=== PATIENT | male | born 1945 | race Caucasian/White ===

== ENCOUNTER → 2020-05-25 15:07 | Outpatient (BNVA) | payer MEDICARE, SELFPAY | PROVIDERS: PCP Internal Medicine Medical Oncology; Visit Provider Internal Medicine | DX: I82.501 Chronic embolism and thrombosis of unspecified deep veins of right lower extremity (principal); Z51.81 Encounter for therapeutic drug level monitoring; Z79.01 Long term (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 | CPT/HCPCS: 85610; 99211 ==

== ENCOUNTER 2020-06-10 10:12 | Outpatient (REF) | payer MEDICARE, SELFPAY | END 2020-06-10 10:13 | disposition home or self-care (01) | LOC: HO.LAB 10:12 | PROVIDERS: Visit Provider Internal Medicine | DX: Z20.828 Contact with and (suspected) exposure to other viral communicable diseases (principal) | CPT/HCPCS: C9803; U0003 ==

== ENCOUNTER → 2020-06-22 09:58 | Outpatient (BNVA) | payer MEDICARE, SELFPAY | PROVIDERS: PCP Internal Medicine Medical Oncology; Visit Provider Internal Medicine | DX: I82.501 Chronic embolism and thrombosis of unspecified deep veins of right lower extremity (principal); Z51.81 Encounter for therapeutic drug level monitoring; Z79.01 Long term (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 | CPT/HCPCS: 85610; 99211 ==

== ENCOUNTER → 2020-07-27 08:50 | Outpatient (BNVA) | payer MEDICARE, SELFPAY | PROVIDERS: PCP Internal Medicine Medical Oncology; Visit Provider Internal Medicine | DX: I82.501 Chronic embolism and thrombosis of unspecified deep veins of right lower extremity (principal); Z79.01 Long term (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; Z51.81 Encounter for therapeutic drug level monitoring | CPT/HCPCS: 85610; 99211 ==

== ENCOUNTER → 2020-08-24 11:03 | Outpatient (BNVA) | payer MEDICARE, SELFPAY | PROVIDERS: PCP Internal Medicine Medical Oncology; Visit Provider Internal Medicine | DX: I82.501 Chronic embolism and thrombosis of unspecified deep veins of right lower extremity (principal); Z79.01 Long term (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; Z51.81 Encounter for therapeutic drug level monitoring | CPT/HCPCS: 85610; 99211 ==

== ENCOUNTER → 2020-09-21 10:20 | Outpatient (BNVA) | payer MEDICARE, SELFPAY | PROVIDERS: PCP Internal Medicine Medical Oncology; Visit Provider Internal Medicine | DX: I82.501 Chronic embolism and thrombosis of unspecified deep veins of right lower extremity (principal); Z51.81 Encounter for therapeutic drug level monitoring; Z79.01 Long term (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 | CPT/HCPCS: 85610; 99211 ==

== ENCOUNTER → 2020-10-19 10:02 | Outpatient (BNVA) | payer MEDICARE, SELFPAY | PROVIDERS: PCP Internal Medicine Medical Oncology; Visit Provider Internal Medicine | DX: I82.501 Chronic embolism and thrombosis of unspecified deep veins of right lower extremity (principal); Z51.81 Encounter for therapeutic drug level monitoring; Z79.01 Long term (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 | CPT/HCPCS: 85610; 99211 ==

== ENCOUNTER → 2020-11-02 10:27 | Outpatient (BNVA) | payer MEDICARE, SELFPAY | PROVIDERS: PCP Internal Medicine Medical Oncology; Visit Provider Internal Medicine | DX: Z86.718 Personal history of other venous thrombosis and embolism (principal); Z51.81 Encounter for therapeutic drug level monitoring; Z79.01 Long term (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 | CPT/HCPCS: 85610; 99211 ==

== ENCOUNTER → 2020-11-30 10:00 | Outpatient (BNVA) | payer MEDICARE, SELFPAY | PROVIDERS: PCP Internal Medicine Medical Oncology; Visit Provider Internal Medicine | DX: Z86.718 Personal history of other venous thrombosis and embolism (principal); Z51.81 Encounter for therapeutic drug level monitoring; Z79.01 Long term (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 | CPT/HCPCS: 85610; 99211 ==

== ENCOUNTER → 2020-12-28 10:31 | Outpatient (BNVA) | payer MEDICARE, SELFPAY | PROVIDERS: PCP Internal Medicine Medical Oncology; Visit Provider Internal Medicine | DX: Z86.718 Personal history of other venous thrombosis and embolism (principal); Z51.81 Encounter for therapeutic drug level monitoring; Z79.01 Long term (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 | CPT/HCPCS: 85610; 99211 ==

== ENCOUNTER → 2021-01-11 10:18 | Outpatient (BNVA) | payer MEDICARE, SELFPAY | PROVIDERS: PCP Internal Medicine Medical Oncology; Visit Provider Internal Medicine | DX: Z86.718 Personal history of other venous thrombosis and embolism (principal); Z51.81 Encounter for therapeutic drug level monitoring; Z79.01 Long term (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 | CPT/HCPCS: 85610; 99211 ==

== ENCOUNTER → 2021-02-01 10:38 | Outpatient (BNVA) | payer MEDICARE, SELFPAY | PROVIDERS: PCP Internal Medicine Medical Oncology; Visit Provider Internal Medicine | DX: Z86.718 Personal history of other venous thrombosis and embolism (principal); Z51.81 Encounter for therapeutic drug level monitoring; Z79.01 Long term (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 | CPT/HCPCS: 85610; 99211 ==

== ENCOUNTER 2021-02-20 08:33 | Outpatient (REF) | payer MEDICARE, SELFPAY ==
[2021-02-20 09:30] LABS: MANUAL DIFF FLAG NO
[2021-02-20 09:40] LABS: Basophils Absolute Auto 0.1 X10*3/uL (0.0-0.2); Basophils Percent Auto 0.9 % (0-2); Eosinophils Absolute Auto 0.1 X10*3/uL (0.0-0.4); Eosinophils Percent Auto 1.8 % (0-4); Hematocrit 42.3 % (42-52); Hemoglobin 13.8 g/dl (14.0-18.0); Imm Gran Abs Auto 0.03 X10*3/uL (0.00-0.03); Imm Gran Pct Auto 0.4 % (0.0-0.4); Lymphocytes Absolute Auto 2.7 X10*3/uL (1.2-4.9); Lymphocytes Percent Auto 35.2 % (20-40); Mean Corpuscular HGB Conc 32.6 g/dl (31.0-36.0); Mean Corpuscular Hemoglobin 30.2 pg (27.0-33.0); Mean Corpuscular Volume 92.6 fL (80-98); Mean Platelet Volume 9.8 fL (9.4-12.4); Monocytes Absolute Auto 0.8 X10*3/uL (0.1-1.2); Monocytes Percent Auto 9.9 % (2-11); Neutrophils Absolute Auto 3.9 X10*3/uL (2.0-8.3); Neutrophils Percent Auto 51.8 % (45-73); Platelet Count 380 X10*3/uL (160-400); Red Blood Count 4.57 X10*6/uL (4.60-5.80); Red Cell Distribution Width 14.1 % (11.0-16.0); White Blood Count 7.6 X10*3/uL (4.8-10.8)
[2021-02-20 10:14] LABS: Alanine Aminotransferase 19 U/L (0-40); Albumin Level 4.1 g/dL (3.5-5.0); Alkaline Phosphatase 65 U/L (39-117); Anion Gap 10 (12-20); Aspartate Amino Transferase 23 U/L (5-37); Bilirubin Total 0.8 mg/dL (0.0-1.0); Blood Urea Nitrogen 15 mg/dL (9-16); Carbon Dioxide 29 mmol/L (22-29); Chloride 106 mmol/L (96-108); Cholesterol 154 mg/dL; Estimated Glomerular Filt Rate > 60; Glucose Random 100 mg/dL (60-115); HDL Cholesterol 42 mg/dL; LDL Cholesterol Calculated 99 mg/dl; Potassium 5.2 mmol/L (3.3-5.1); Sodium 140 mmol/L (135-145); Total Protein 6.9 g/dL (6.5-8.0); Triglycerides 69 mg/dL
== END 2021-02-20 08:34 | disposition home or self-care (01) ==
LOC: HO.LAB 08:33
PROVIDERS: PCP Internal Medicine Medical Oncology; Visit Provider Internal Medicine Medical Oncology
DX: I10 Essential (primary) hypertension (principal); C91.10 Chronic lymphocytic leukemia of B-cell type not having achieved remission
CPT/HCPCS: 36415; 80053; 80061; 85025

== ENCOUNTER → 2021-04-03 08:55 | Outpatient (BNVA) | payer MEDICARE, SELFPAY | PROVIDERS: PCP Internal Medicine Medical Oncology; Visit Provider Internal Medicine | DX: Z86.718 Personal history of other venous thrombosis and embolism (principal); Z51.81 Encounter for therapeutic drug level monitoring; Z79.01 Long term (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 | CPT/HCPCS: 85610; 99211 ==

== ENCOUNTER → 2021-05-08 08:39 | Outpatient (BNVA) | payer MEDICARE, SELFPAY | PROVIDERS: PCP Internal Medicine Medical Oncology; Visit Provider Internal Medicine | DX: Z86.718 Personal history of other venous thrombosis and embolism (principal); Z51.81 Encounter for therapeutic drug level monitoring; Z79.01 Long term (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 | CPT/HCPCS: 85610; 99211 ==

== ENCOUNTER → 2021-05-29 08:57 | Outpatient (BNVA) | payer MEDICARE, SELFPAY | PROVIDERS: PCP Internal Medicine Medical Oncology; Visit Provider Internal Medicine | DX: Z86.718 Personal history of other venous thrombosis and embolism (principal); Z51.81 Encounter for therapeutic drug level monitoring; Z79.01 Long term (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 | CPT/HCPCS: 85610; 99211 ==

== ENCOUNTER → 2021-06-26 08:59 | Outpatient (BNVA) | payer MEDICARE, SELFPAY | PROVIDERS: PCP Internal Medicine Medical Oncology; Visit Provider Internal Medicine | DX: Z86.718 Personal history of other venous thrombosis and embolism (principal); Z51.81 Encounter for therapeutic drug level monitoring; Z79.01 Long term (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 | CPT/HCPCS: 85610; 99211 ==

== ENCOUNTER 2021-07-06 07:17 | Outpatient (REF) | payer MEDICARE, SELFPAY ==
[2021-07-06 07:26] LABS: MANUAL DIFF FLAG NO
[2021-07-06 07:59] LABS: Basophils Absolute Auto 0.1 X10*3/uL (0.0-0.2); Basophils Percent Auto 0.7 % (0-2); Eosinophils Absolute Auto 0.2 X10*3/uL (0.0-0.4); Eosinophils Percent Auto 2.1 % (0-4); Hematocrit 41.2 % (42.0-52.0); Hemoglobin 13.7 g/dl (14.0-18.0); Imm Gran Abs Auto 0.03 X10*3/uL (0.00-0.03); Imm Gran Pct Auto 0.4 % (0.0-0.4); Lymphocytes Absolute Auto 2.8 X10*3/uL (1.2-4.9); Lymphocytes Percent Auto 33.2 % (20-40); Mean Corpuscular HGB Conc 33.3 g/dl (31.0-36.0); Mean Corpuscular Hemoglobin 30.2 pg (27.0-33.0); Mean Corpuscular Volume 90.9 fL (80.0-98.0); Monocytes Absolute Auto 0.9 X10*3/uL (0.1-1.2); Monocytes Percent Auto 10.4 % (2-11); Neutrophils Absolute Auto 4.6 x10*3/uL (2.0-8.3); Neutrophils Percent Auto 53.2 % (45-73); Platelet Count 361 X10*3/uL (160-400); Red Blood Count 4.53 X10*6/uL (4.60-5.80); Red Cell Distribution Width 14.2 % (11.0-16.0); White Blood Count 8.6 X10*3/uL (4.8-10.8)
[2021-07-06 08:27] LABS: Alanine Aminotransferase 20 U/L (0-40); Alkaline Phosphatase 61 U/L (39-117); Anion Gap 14 (12-20); Aspartate Amino Transferase 22 U/L (5-37); Bilirubin Total 0.9 mg/dL (0.0-1.0); Blood Urea Nitrogen 15 mg/dL (9-16); Calcium 9.1 mg/dL (8.4-10.2); Carbon Dioxide 26 mmol/L (22-29); Chloride 108 mmol/L (96-108); Cholesterol 147 mg/dL; Estimated Glomerular Filt Rate > 60; Glucose Fasting 109 mg/dL (60-99); HDL Cholesterol 41 mg/dL; LDL Cholesterol Calculated 92 mg/dl; Potassium 4.4 mmol/L (3.3-5.1); Sodium 144 mmol/L (135-145); Total Protein 6.7 g/dL (6.5-8.0); Triglycerides 73 mg/dL
[2021-07-06 08:45] LABS: PSA,Total (Free>4and<10) 1.32 ng/mL (0.00-4.00)
== END 2021-07-06 07:18 | disposition home or self-care (01) ==
LOC: HO.LAB 07:17
PROVIDERS: PCP Internal Medicine Medical Oncology; Visit Provider Internal Medicine Medical Oncology
DX: I10 Essential (primary) hypertension (principal); E11.9 Type 2 diabetes mellitus without complications; Z12.5 Encounter for screening for malignant neoplasm of prostate
CPT/HCPCS: 36415; 80053; 80061; 84153; 84154; 85025

== ENCOUNTER → 2021-07-17 09:06 | Outpatient (BNVA) | payer MEDICARE, SELFPAY | PROVIDERS: PCP Internal Medicine Medical Oncology; Visit Provider Internal Medicine | DX: Z86.718 Personal history of other venous thrombosis and embolism (principal); Z51.81 Encounter for therapeutic drug level monitoring; Z79.01 Long term (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 | CPT/HCPCS: 85610; 99211 ==

== ENCOUNTER → 2021-07-31 08:56 | Outpatient (BNVA) | payer MEDICARE, SELFPAY | PROVIDERS: PCP Internal Medicine Medical Oncology; Visit Provider Internal Medicine | DX: Z86.718 Personal history of other venous thrombosis and embolism (principal); Z51.81 Encounter for therapeutic drug level monitoring; Z79.01 Long term (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 | CPT/HCPCS: 85610; 99211 ==

== ENCOUNTER → 2021-08-31 08:42 | Outpatient (BNVA) | payer MEDICARE, SELFPAY | PROVIDERS: PCP Internal Medicine Medical Oncology; Visit Provider Internal Medicine | DX: Z86.718 Personal history of other venous thrombosis and embolism (principal); Z51.81 Encounter for therapeutic drug level monitoring; Z79.01 Long term (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 | CPT/HCPCS: 85610; 99211 ==

== ENCOUNTER → 2021-10-12 08:06 | Outpatient (BNVA) | payer MEDICARE, SELFPAY | PROVIDERS: PCP Internal Medicine Medical Oncology; Visit Provider Internal Medicine | DX: Z86.718 Personal history of other venous thrombosis and embolism (principal); Z51.81 Encounter for therapeutic drug level monitoring; Z79.01 Long term (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 | CPT/HCPCS: 85610; 99211 ==

== ENCOUNTER 2021-11-02 07:20 | Outpatient (REF) | payer MEDICARE, SELFPAY ==
[2021-11-02 07:30] LABS: MANUAL DIFF FLAG NO
[2021-11-02 07:32] LABS: Basophils Absolute Auto 0.1 X10*3/uL (0.0-0.2); Basophils Percent Auto 0.7 % (0-2); Eosinophils Absolute Auto 0.2 X10*3/uL (0.0-0.4); Eosinophils Percent Auto 1.9 % (0-4); Hematocrit 41.4 % (42.0-52.0); Hemoglobin 14.2 g/dl (14.0-18.0); Imm Gran Abs Auto 0.04 X10*3/uL (0.00-0.03); Imm Gran Pct Auto 0.5 % (0.0-0.4); Lymphocytes Absolute Auto 3.2 X10*3/uL (1.2-4.9); Lymphocytes Percent Auto 35.7 % (20-40); Mean Corpuscular HGB Conc 34.3 g/dl (31.0-36.0); Mean Corpuscular Hemoglobin 31.8 pg (27.0-33.0); Mean Corpuscular Volume 92.6 fL (80.0-98.0); Mean Platelet Volume 9.8 fL (9.4-12.4); Monocytes Absolute Auto 0.9 X10*3/uL (0.1-1.2); Neutrophils Absolute Auto 4.5 x10*3/uL (2.0-8.3); Neutrophils Percent Auto 51.2 % (45-73); Platelet Count 292 X10*3/uL (160-400); Red Blood Count 4.47 X10*6/uL (4.60-5.80); Red Cell Distribution Width 15.2 % (11.0-16.0); White Blood Count 8.8 X10*3/uL (4.8-10.8)
[2021-11-02 08:04] LABS: Alanine Aminotransferase 20 U/L (0-40); Albumin Level 4.1 g/dL (3.5-5.0); Alkaline Phosphatase 64 U/L (39-117); Anion Gap 10 (12-20); Aspartate Amino Transferase 20 U/L (5-37); Bilirubin Total 0.5 mg/dL (0.0-1.0); Blood Urea Nitrogen 19 mg/dL (9-16); Calcium 9.2 mg/dL (8.4-10.2); Carbon Dioxide 28 mmol/L (22-29); Chloride 107 mmol/L (96-108); Cholesterol 159 mg/dL; Estimated Glomerular Filt Rate > 60; Glucose Fasting 117 mg/dL (60-99); HDL Cholesterol 42 mg/dL; LDL Cholesterol Calculated 101 mg/dl; Potassium 4.4 mmol/L (3.3-5.1); Sodium 141 mmol/L (135-145); Total Protein 7.1 g/dL (6.5-8.0); Triglycerides 80 mg/dL
[2021-11-02 08:16] LABS: Prostate Specific Antigen 1.07 ng/mL (<0.05-4.0)
== END 2021-11-02 07:21 | disposition home or self-care (01) ==
LOC: HO.LAB 07:20
PROVIDERS: PCP Internal Medicine Medical Oncology; Visit Provider Internal Medicine Medical Oncology
DX: I10 Essential (primary) hypertension (principal); E11.9 Type 2 diabetes mellitus without complications; E66.3 Overweight; Z12.5 Encounter for screening for malignant neoplasm of prostate
CPT/HCPCS: 36415; 80053; 80061; 84153; 85025

== ENCOUNTER → 2021-11-08 08:01 | Outpatient (BNVA) | payer MEDICARE, SELFPAY | PROVIDERS: PCP Internal Medicine Medical Oncology; Visit Provider Internal Medicine | DX: Z86.718 Personal history of other venous thrombosis and embolism (principal); Z51.81 Encounter for therapeutic drug level monitoring; Z79.01 Long term (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 | CPT/HCPCS: 85610; 99211 ==

== ENCOUNTER → 2021-12-18 13:56 | Outpatient (BNVA) | payer MEDICARE, SELFPAY | PROVIDERS: PCP Internal Medicine Medical Oncology; Visit Provider Internal Medicine | DX: Z86.718 Personal history of other venous thrombosis and embolism (principal); Z79.01 Long term (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; Z51.81 Encounter for therapeutic drug level monitoring | CPT/HCPCS: 85610; 99211 ==

== ENCOUNTER → 2022-01-29 08:44 | Outpatient (BNVA) | payer MEDICARE, SELFPAY | PROVIDERS: PCP Internal Medicine Medical Oncology; Visit Provider Internal Medicine | DX: Z86.718 Personal history of other venous thrombosis and embolism (principal); Z79.01 Long term (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; Z51.81 Encounter for therapeutic drug level monitoring | CPT/HCPCS: 85610; 99211 ==

== ENCOUNTER → 2022-02-26 08:36 | Outpatient (BNVA) | payer MEDICARE, SELFPAY | PROVIDERS: PCP Internal Medicine Medical Oncology; Visit Provider Internal Medicine | DX: Z86.718 Personal history of other venous thrombosis and embolism (principal); Z51.81 Encounter for therapeutic drug level monitoring; Z79.01 Long term (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 | CPT/HCPCS: 85610; 99211 ==

== ENCOUNTER 2022-03-26 06:41 | Outpatient (REF) | payer MEDICARE, SELFPAY ==
[2022-03-26 06:55] LABS: MANUAL DIFF FLAG NO
[2022-03-26 07:27] LABS: Basophils Absolute Auto 0.1 X10*3/uL (0.0-0.2); Basophils Percent Auto 0.9 % (0-2); Eosinophils Absolute Auto 0.2 X10*3/uL (0.0-0.4); Hematocrit 40.8 % (42.0-52.0); Hemoglobin 13.8 g/dl (14.0-18.0); Imm Gran Abs Auto 0.03 X10*3/uL (0.00-0.03); Imm Gran Pct Auto 0.3 % (0.0-0.4); Lymphocytes Absolute Auto 3.4 X10*3/uL (1.2-4.9); Lymphocytes Percent Auto 37.5 % (20-40); Mean Corpuscular HGB Conc 33.8 g/dl (31.0-36.0); Mean Corpuscular Hemoglobin 31.1 pg (27.0-33.0); Mean Corpuscular Volume 91.9 fL (80.0-98.0); Mean Platelet Volume 9.7 fL (9.4-12.4); Monocytes Absolute Auto 0.8 X10*3/uL (0.1-1.2); Monocytes Percent Auto 9.4 % (2-11); Neutrophils Absolute Auto 4.5 x10*3/uL (2.0-8.3); Neutrophils Percent Auto 49.9 % (45-73); Platelet Count 369 X10*3/uL (160-400); Red Blood Count 4.44 X10*6/uL (4.60-5.80); Red Cell Distribution Width 13.8 % (11.0-16.0); White Blood Count 8.9 X10*3/uL (4.8-10.8)
[2022-03-26 08:11] LABS: Alanine Aminotransferase 17 U/L (0-40); Alkaline Phosphatase 70 U/L (39-117); Anion Gap 14 (12-20); Aspartate Amino Transferase 19 U/L (5-37); Bilirubin Total 0.7 mg/dL (0.0-1.0); Blood Urea Nitrogen 24 mg/dL (9-16); Carbon Dioxide 26 mmol/L (22-29); Chloride 105 mmol/L (96-108); Cholesterol 184 mg/dL; Estimated Glomerular Filt Rate > 60; Glucose Fasting 106 mg/dL (60-99); HDL Cholesterol 50 mg/dL; LDL Cholesterol Calculated 122 mg/dl; Potassium 4.6 mmol/L (3.3-5.1); Sodium 140 mmol/L (135-145); Total Protein 6.8 g/dL (6.5-8.0); Triglycerides 63 mg/dL
== END 2022-03-26 06:42 | disposition home or self-care (01) ==
LOC: HO.LAB 06:41
PROVIDERS: PCP Internal Medicine Medical Oncology; Visit Provider Internal Medicine Medical Oncology
DX: Z86.718 Personal history of other venous thrombosis and embolism (principal); I10 Essential (primary) hypertension; C91.10 Chronic lymphocytic leukemia of B-cell type not having achieved remission; Z51.81 Encounter for therapeutic drug level monitoring; Z79.01 Long term (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
CPT/HCPCS: 36415; 80053; 80061; 85025; 85610; 99211

== ENCOUNTER 2022-03-27 11:56 | Outpatient (REF) | payer MEDICARE, SELFPAY ==
--- NOTE | ~2022-03-27 | XR_ITS ---
EXAMINATION: XR THORACIC SPINE CLINICAL INFORMATION: Pain COMPARISON: Previous chest x-ray most recent February [address] from 2013 TECHNIQUE: 3 views of the thoracic spine were obtained. FINDINGS: There is 3 mm anterior subluxation of C7 with respect to T1 and T2 with respect to T3 appreciated on the swimmer's view. Bone alignment is otherwise normal. No fracture or dislocation is seen. There is multilevel degenerative spondylosis. There are postsurgical changes with surgical clips in the right paratracheal region. There is fullness of the soft tissues seen in this region that is unchanged from old exams. There is tortuosity of the descending thoracic aorta that is similar to previous exams. There are postsurgical changes to the lower cervical spine. XR/XR thoracic spine 3V IMPRESSION: Mild 3 mm anterior subluxation of the C7 with respect to T1 and T2 with respect to T3 seen on swimmer's view. Degenerative changes.
== END 2022-03-27 11:57 | disposition home or self-care (01) ==
LOC: HO.XRAY 11:56
PROVIDERS: PCP Internal Medicine Medical Oncology; Visit Provider Internal Medicine Medical Oncology
DX: M54.6 Pain in thoracic spine (principal)
CPT/HCPCS: 72072

== ENCOUNTER → 2022-04-02 08:02 | Outpatient (BNVA) | payer MEDICARE, SELFPAY | PROVIDERS: PCP Internal Medicine Medical Oncology; Visit Provider Internal Medicine | DX: Z86.718 Personal history of other venous thrombosis and embolism (principal); Z79.01 Long term (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; Z51.81 Encounter for therapeutic drug level monitoring | CPT/HCPCS: 85610; 99211 ==

== ENCOUNTER → 2022-04-30 08:10 | Outpatient (BNVA) | payer MEDICARE, SELFPAY | PROVIDERS: PCP Internal Medicine Medical Oncology; Visit Provider Internal Medicine | DX: Z86.718 Personal history of other venous thrombosis and embolism (principal); Z79.01 Long term (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; Z51.81 Encounter for therapeutic drug level monitoring | CPT/HCPCS: 85610; 99211 ==

== ENCOUNTER 2022-05-21 10:39 | Outpatient (REF) | payer MEDICARE, SELFPAY ==
--- NOTE | ~2022-05-21 | XR_ITS ---
EXAMINATION: XR CHEST CLINICAL INFORMATION: Cough COMPARISON: Previous chest x-rays most recent February 2019 TECHNIQUE: 2 views of the chest FINDINGS: The cardiac and mediastinal contours are stable. The descending thoracic aorta is tortuous. There are surgical clips in the right superior mediastinal region. The lungs are clear. There is no pleural effusion or pneumothorax. There are postsurgical changes to the lower cervical spine. XR/XR chest 2V IMPRESSION: No evidence for acute disease in the chest.
== END 2022-05-21 10:40 | disposition home or self-care (01) ==
LOC: HO.XRAY 10:39
PROVIDERS: PCP Internal Medicine Medical Oncology; Visit Provider Internal Medicine Medical Oncology
DX: R05.3 Chronic cough (principal)
CPT/HCPCS: 71046

== ENCOUNTER → 2022-05-28 07:59 | Outpatient (BNVA) | payer MEDICARE, SELFPAY | PROVIDERS: PCP Internal Medicine Medical Oncology; Visit Provider Internal Medicine | DX: Z86.718 Personal history of other venous thrombosis and embolism (principal); Z79.01 Long term (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; Z51.81 Encounter for therapeutic drug level monitoring | CPT/HCPCS: 85610; 99211 ==

== ENCOUNTER → 2022-06-24 07:59 | Outpatient (BNVA) | payer MEDICARE, SELFPAY | PROVIDERS: PCP Internal Medicine Medical Oncology; Visit Provider Internal Medicine | DX: Z86.718 Personal history of other venous thrombosis and embolism (principal); Z79.01 Long term (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; Z51.81 Encounter for therapeutic drug level monitoring | CPT/HCPCS: 85610; 99211 ==

== ENCOUNTER → 2022-07-08 08:04 | Outpatient (BNVA) | payer MEDICARE, SELFPAY | PROVIDERS: PCP Internal Medicine Medical Oncology; Visit Provider Internal Medicine | DX: Z86.718 Personal history of other venous thrombosis and embolism (principal); Z79.01 Long term (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; Z51.81 Encounter for therapeutic drug level monitoring | CPT/HCPCS: 85610; 99211 ==

== ENCOUNTER → 2022-08-06 08:04 | Outpatient (BNVA) | payer MEDICARE, SELFPAY | PROVIDERS: PCP Internal Medicine Medical Oncology; Visit Provider Internal Medicine | DX: Z86.718 Personal history of other venous thrombosis and embolism (principal); Z79.01 Long term (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; Z51.81 Encounter for therapeutic drug level monitoring | CPT/HCPCS: 85610; 99211 ==

== ENCOUNTER 2022-08-09 06:09 | Outpatient (REF) | payer MEDICARE, SELFPAY ==
[2022-08-09 06:19] LABS: MANUAL DIFF FLAG NO
[2022-08-09 07:26] LABS: Basophils Absolute Auto 0.1 X10*3/uL (0.0-0.2); Basophils Percent Auto 0.9 % (0-2); Eosinophils Absolute Auto 0.2 X10*3/uL (0.0-0.4); Eosinophils Percent Auto 2.6 % (0-4); Hematocrit 40.5 % (42.0-52.0); Hemoglobin 13.4 g/dl (14.0-18.0); Imm Gran Abs Auto 0.02 X10*3/uL (0.00-0.03); Imm Gran Pct Auto 0.3 % (0.0-0.4); Lymphocytes Percent Auto 38.8 % (20-40); Mean Corpuscular HGB Conc 33.1 g/dl (31.0-36.0); Mean Corpuscular Hemoglobin 30.2 pg (27.0-33.0); Mean Corpuscular Volume 91.2 fL (80.0-98.0); Mean Platelet Volume 10.1 fL (9.4-12.4); Monocytes Absolute Auto 0.9 X10*3/uL (0.1-1.2); Neutrophils Absolute Auto 3.7 x10*3/uL (2.0-8.3); Neutrophils Percent Auto 46.4 % (45-73); Platelet Count 365 X10*3/uL (160-400); Red Blood Count 4.44 X10*6/uL (4.60-5.80); White Blood Count 7.8 X10*3/uL (4.8-10.8)
[2022-08-09 08:05] LABS: Alanine Aminotransferase 14 U/L (0-40); Albumin Level 3.8 g/dL (3.5-5.0); Alkaline Phosphatase 71 U/L (39-117); Anion Gap 13 (12-20); Aspartate Amino Transferase 17 U/L (5-37); Bilirubin Total 0.6 mg/dL (0.0-1.0); Blood Urea Nitrogen 17 mg/dL (9-16); Calcium 8.9 mg/dL (8.4-10.2); Carbon Dioxide 28 mmol/L (22-29); Chloride 108 mmol/L (96-108); Cholesterol 152 mg/dL; Estimated Glomerular Filt Rate > 60; Glucose Fasting 98 mg/dL (60-99); HDL Cholesterol 39 mg/dL; LDL Cholesterol Calculated 97 mg/dl; Potassium 4.5 mmol/L (3.3-5.1); Sodium 144 mmol/L (135-145); Total Protein 6.4 g/dL (6.5-8.0); Triglycerides 81 mg/dL
[2022-08-09 08:23] LABS: Prostate Specific Antigen 1.13 ng/mL (<0.05-4.0)
== END 2022-08-09 06:10 | disposition home or self-care (01) ==
LOC: HO.LAB 06:09
PROVIDERS: PCP Internal Medicine Medical Oncology; Visit Provider Internal Medicine Medical Oncology
DX: C91.10 Chronic lymphocytic leukemia of B-cell type not having achieved remission (principal); C34.90 Malignant neoplasm of unspecified part of unspecified bronchus or lung; I10 Essential (primary) hypertension; E11.9 Type 2 diabetes mellitus without complications; Z12.5 Encounter for screening for malignant neoplasm of prostate
CPT/HCPCS: 36415; 80053; 80061; 84153; 85025

== ENCOUNTER → 2022-09-10 08:02 | Outpatient (BNVA) | payer MEDICARE, SELFPAY | PROVIDERS: PCP Internal Medicine Medical Oncology; Visit Provider Internal Medicine | DX: Z86.718 Personal history of other venous thrombosis and embolism (principal); Z79.01 Long term (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; Z51.81 Encounter for therapeutic drug level monitoring | CPT/HCPCS: 85610; 99211 ==

== ENCOUNTER → 2022-09-16 08:40 | Outpatient (BNVA) | payer MEDICARE, SELFPAY | PROVIDERS: PCP Internal Medicine Medical Oncology; Referring Provider Internal Medicine Medical Oncology; Visit Provider Surgery | DX: L72.3 Sebaceous cyst (principal); C91.11 Chronic lymphocytic leukemia of B-cell type in remission; C34.90 Malignant neoplasm of unspecified part of unspecified bronchus or lung; I10 Essential (primary) hypertension; I80.291 Phlebitis and thrombophlebitis of other deep vessels of right lower extremity; D68.59 Other primary thrombophilia; Z79.01 Long term (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 | CPT/HCPCS: 99202 ==

== ENCOUNTER → 2022-10-08 08:01 | Outpatient (BNVA) | payer MEDICARE, SELFPAY | PROVIDERS: PCP Internal Medicine Medical Oncology; Visit Provider Internal Medicine | DX: Z86.718 Personal history of other venous thrombosis and embolism (principal); Z79.01 Long term (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; Z51.81 Encounter for therapeutic drug level monitoring | CPT/HCPCS: 85610; 99211 ==

== ENCOUNTER 2022-10-18 10:33 | Outpatient (REF) | payer MEDICARE, SELFPAY ==
[2022-10-18 10:40] VITALS: BMI 26.3
[2022-10-18 10:42] VITALS: BP 143/76; PULSE 87; RESP 16; TEMP 36.8; O2SAT 100
[2022-10-18 11:25] VITALS: BP 144/93; PULSE 82; RESP 16; O2SAT 97
--- NOTE | 2022-10-18 11:33 | P.OP_ITS ---
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 Options of continued observation versus excision with the inherent risks of bleeding, infection, scar formation, recurrence and wound complications that could require another procedure were discussed and apparently understood. The option of continued observation was discussed but the patient wanted to have it removed. Activity restrictions were reviewed. Given the patient's significant PE, his Coumadin was continued.] Procedure: [The patient was identified in the minor procedure room an interval evaluation confirming no changes performed. The patient was then marked and placed prone on the table. A time-out was performed confirming the operation and quit was available. His skin was prepped with 2 layers of Betadine that was allowed to dry and the knee was draped in the usual manner. Local was i nfiltrated with excellent effect an elliptical incision encompassing the central pore measuring 11 x 33 mm was made sharply. This was carried into the subcutaneous tissues using electrocautery on 25W. After irrigating and inspecting for hemostasis which was noted to be present, the skin was closed with 4 interrupted 3-0 Prolene with good tissue approximation. There was then washed and dried, bacitracin and a bandage applied. Patient tolerated the procedure well. Verbal and written instructions reviewed and his questions answered Follow-up in 7-10 days for sutures, sooner with problems.]
== END 2022-10-18 10:34 | disposition home or self-care (01) ==
LOC: HO.MS 10:33
PROVIDERS: PCP Internal Medicine Medical Oncology; Visit Provider Surgery
PROC: (CPT 11404; principal; 2022-10-18 11:00)
DX: L72.3 Sebaceous cyst (principal); I26.99 Other pulmonary embolism without acute cor pulmonale; Z79.01 Long term (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
CPT/HCPCS: 11404; 88304

== ENCOUNTER → 2022-10-25 08:40 | Outpatient (BNVA) | payer MEDICARE, SELFPAY | PROVIDERS: PCP Internal Medicine Medical Oncology; Visit Provider Surgery | DX: Z48.817 Encounter for surgical aftercare following surgery on the skin and subcutaneous tissue (principal); Z87.2 Personal history of diseases of the skin and subcutaneous tissue | CPT/HCPCS: 99212 ==

== ENCOUNTER → 2022-11-05 08:06 | Outpatient (BNVA) | payer MEDICARE, SELFPAY | PROVIDERS: PCP Internal Medicine Medical Oncology; Visit Provider Internal Medicine | DX: Z86.718 Personal history of other venous thrombosis and embolism (principal); Z79.01 Long term (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; Z51.81 Encounter for therapeutic drug level monitoring | CPT/HCPCS: 85610; 99211 ==

== ENCOUNTER 2022-12-03 07:03 | Outpatient (REF) | payer MEDICARE, SELFPAY ==
[2022-12-03 07:15] LABS: MANUAL DIFF FLAG NO
[2022-12-03 07:34] LABS: Basophils Absolute Auto 0.1 X10*3/uL (0.0-0.2); Basophils Percent Auto 1.1 % (0-2); Eosinophils Absolute Auto 0.2 X10*3/uL (0.0-0.4); Eosinophils Percent Auto 1.6 % (0-4); Hematocrit 43.9 % (42.0-52.0); Hemoglobin 14.4 g/dl (14.0-18.0); Imm Gran Abs Auto 0.03 X10*3/uL (0.00-0.03); Imm Gran Pct Auto 0.3 % (0.0-0.4); Lymphocytes Absolute Auto 3.4 X10*3/uL (1.2-4.9); Lymphocytes Percent Auto 37.1 % (20-40); Mean Corpuscular HGB Conc 32.8 g/dl (31.0-36.0); Mean Corpuscular Hemoglobin 30.4 pg (27.0-33.0); Mean Corpuscular Volume 92.6 fL (80.0-98.0); Mean Platelet Volume 9.7 fL (9.4-12.4); Monocytes Absolute Auto 0.9 X10*3/uL (0.1-1.2); Monocytes Percent Auto 9.8 % (2-11); Neutrophils Absolute Auto 4.6 x10*3/uL (2.0-8.3); Neutrophils Percent Auto 50.1 % (45-73); Platelet Count 382 X10*3/uL (160-400); Red Blood Count 4.74 X10*6/uL (4.60-5.80); Red Cell Distribution Width 14.3 % (11.0-16.0); White Blood Count 9.2 X10*3/uL (4.8-10.8)
[2022-12-03 07:57] LABS: Alanine Aminotransferase 22 U/L (0-40); Albumin Level 4.1 g/dL (3.5-5.0); Alkaline Phosphatase 77 U/L (39-117); Anion Gap 11 (12-20); Aspartate Amino Transferase 20 U/L (5-37); Bilirubin Total 0.6 mg/dL (0.0-1.0); Blood Urea Nitrogen 23 mg/dL (9-16); Calcium 9.2 mg/dL (8.4-10.2); Carbon Dioxide 27 mmol/L (22-29); Chloride 107 mmol/L (96-108); Cholesterol 159 mg/dL; Estimated Glomerular Filt Rate > 60; Glucose Fasting 101 mg/dL (60-99); HDL Cholesterol 41 mg/dL; LDL Cholesterol Calculated 103 mg/dl; Potassium 4.4 mmol/L (3.3-5.1); Sodium 141 mmol/L (135-145); Total Protein 6.8 g/dL (6.5-8.0); Triglycerides 76 mg/dL
== END 2022-12-03 07:04 | disposition home or self-care (01) ==
LOC: HO.LAB 07:03
PROVIDERS: PCP Internal Medicine Medical Oncology; Visit Provider Internal Medicine Medical Oncology
DX: Z86.718 Personal history of other venous thrombosis and embolism (principal); C91.10 Chronic lymphocytic leukemia of B-cell type not having achieved remission; E66.3 Overweight; I10 Essential (primary) hypertension; Z51.81 Encounter for therapeutic drug level monitoring; Z79.01 Long term (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
CPT/HCPCS: 36415; 80053; 80061; 85025; 85610; 99211

== ENCOUNTER → 2022-12-31 07:59 | Outpatient (BNVA) | payer MEDICARE, SELFPAY | PROVIDERS: PCP Internal Medicine Medical Oncology; Visit Provider Internal Medicine | DX: Z86.718 Personal history of other venous thrombosis and embolism (principal); Z79.01 Long term (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; Z51.81 Encounter for therapeutic drug level monitoring | CPT/HCPCS: 85610; 99211 ==

== ENCOUNTER → 2023-01-28 08:02 | Outpatient (BNVA) | payer MEDICARE, SELFPAY | PROVIDERS: PCP Internal Medicine Medical Oncology; Visit Provider Internal Medicine | DX: Z86.718 Personal history of other venous thrombosis and embolism (principal); Z51.81 Encounter for therapeutic drug level monitoring; Z79.01 Long term (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 | CPT/HCPCS: 85610; 99211 ==

== ENCOUNTER 2023-02-25 08:02 | Outpatient (AMB) | payer MEDICARE, SELFPAY ==
--- NOTE | 2023-02-25 08:16 | MHC.OFFVISCO ---
Intake Intake Visit Reasons: Anticoagulation Allergies No Known Allergies Allergy (Mild, Verified 02/25/23 08:10) NOT APPLICABLE Medication List - Last Reconciled 02/25/23 by Magda Matute RN losartan 25 mg PO DAILY prednisone 20 mg PO DAILY simvastatin 40 mg PO DAILY sumatriptan succinate 0 mg PO warfarin 5 mg See Protocol PO DAILY Nursing Note INR: 2.0- in therapeutic range Medications and supplements reviewed- pt states no longer taking prednisone No changes in health, diet, medications, or supplements, Denies any signs and symptoms of bleeding or bruising or clotting. Bleeding, bruising, clotting discussed Nutritional guidance given Dose: 5mg x 6, 7.5mg x 1 F/U INR: pt req 4 weeks Patient verbalizes understanding of instructions given Anti-Coag Initial Assessment Social Hx Patient Tobacco Use Status: Former Tobacco user Tobacco use type: Cigar alcohol intake: never Coding Level of Care Code Est Patient Level 1 Diagnoses Current use of anticoagulant therapy Z79.01 Results AMB INR Fingerstick AMB INR Fingerstick 2.0 Last Edit by Magda Matute RN on 02/25/23 08:17 Assessment & Plan Assessment & Plan (1) Current use of anticoagulant therapy: Code(s): Z79.01 - long-term (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 Category: Medical
[2023-02-25 08:17] LABS: Prothrombin Time Whole Bld POC 23.8 sec (11.1-13.5)
== END 2023-02-25 08:22 | disposition home or self-care (01) ==
LOC: HO.ACS 08:02
PROVIDERS: PCP Internal Medicine Medical Oncology; Visit Provider Internal Medicine
DX: Z79.01 Long term (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 (principal)

== ENCOUNTER → 2023-02-25 08:02 | Outpatient (BNVA) | payer MEDICARE, SELFPAY | PROVIDERS: PCP Internal Medicine Medical Oncology; Visit Provider Internal Medicine | DX: Z86.718 Personal history of other venous thrombosis and embolism (principal); Z51.81 Encounter for therapeutic drug level monitoring; Z79.01 Long term (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 | CPT/HCPCS: 85610; 99211 ==

== ENCOUNTER 2023-03-17 08:25 | Outpatient (REF) | payer MEDICARE, SELFPAY ==
--- NOTE | ~2023-03-17 | XR_ITS ---
EXAMINATION: XR KNEE, RIGHT XR KNEE, LEFT XR KNEE, STANDING BILATERAL CLINICAL INFORMATION: Bilateral knee pain. COMPARISON: None available. TECHNIQUE: AP standing view of bilateral knees. Lateral and sunrise views of bilateral knees. FINDINGS: RIGHT KNEE: Joint effusion. Moderate medial joint space narrowing with tiny marginal osteophytes. LEFT KNEE: Joint effusion. Small quadriceps enthesophyte. Mild medial joint space narrowing with tiny marginal osteophytes. XR/XR knee LT 2V IMPRESSION: Bilateral joint effusions. Moderate right and mild left degenerative changes.
--- NOTE | ~2023-03-17 | XR_ITS ---
EXAMINATION: XR KNEE, RIGHT XR KNEE, LEFT XR KNEE, STANDING BILATERAL CLINICAL INFORMATION: Bilateral knee pain. COMPARISON: None available. TECHNIQUE: AP standing view of bilateral knees. Lateral and sunrise views of bilateral knees. FINDINGS: RIGHT KNEE: Joint effusion. Moderate medial joint space narrowing with tiny marginal osteophytes. LEFT KNEE: Joint effusion. Small quadriceps enthesophyte. Mild medial joint space narrowing with tiny marginal osteophytes. XR/XR knee standing BI IMPRESSION: Bilateral joint effusions. Moderate right and mild left degenerative changes.
--- NOTE | ~2023-03-17 | XR_ITS ---
EXAMINATION: XR KNEE, RIGHT XR KNEE, LEFT XR KNEE, STANDING BILATERAL CLINICAL INFORMATION: Bilateral knee pain. COMPARISON: None available. TECHNIQUE: AP standing view of bilateral knees. Lateral and sunrise views of bilateral knees. FINDINGS: RIGHT KNEE: Joint effusion. Moderate medial joint space narrowing with tiny marginal osteophytes. LEFT KNEE: Joint effusion. Small quadriceps enthesophyte. Mild medial joint space narrowing with tiny marginal osteophytes. XR/XR knee RT 2V IMPRESSION: Bilateral joint effusions. Moderate right and mild left degenerative changes.
== END 2023-03-17 08:26 | disposition home or self-care (01) ==
LOC: HO.HOSX 08:25
PROVIDERS: Visit Provider Physician Assistant
DX: M17.0 Bilateral primary osteoarthritis of knee (principal)
CPT/HCPCS: 20610; 73560; 73565; 99202; J1040

== ENCOUNTER 2023-03-17 09:47 | Outpatient (AMB) | payer MEDICARE, SELFPAY ==
--- NOTE | 2023-03-17 10:05 | MHC.OFFVIS ---
Intake Vital Signs 03/17/23 10:10 Height 6 ft Weight 194 lb BMI 26.3 Intake Visit Reasons: New Pt - B/L Knee pain with Swelling Intake Note: Jem is a 78 year old male who presents today as a new patient for a evaluation for bilateral knee pain. No hx of injury. Hx of injections on the left knee with relief. Patient reports ongoing pain and swelling for 3 months for the left knee and then 2 weeks ago his right knee started to cause him pain. He states his left knee is worse than the right knee. Pain is on the lateral aspect of both knees per patient. Allergies No Known Allergies Allergy (Mild, Verified 03/17/23 10:10) NOT APPLICABLE HPI New Pt - B/L Knee pain with Swelling HPI Details 78-year-old male who presents in the office today, as a new patient, for an evaluation of bilateral knee pain. The patient reports ongoing pain and edema for 3 months for the left knee. He also states his right knee began to hurt about 2 weeks ago. He states his left knee is worse then his right knee. He claims the pain is on the lateral aspect of the bilateral knees. Patient denies any injury to the bilateral knees. Patient has a history of cortisone injections in the left knee, with relief. [facility] Surgical History History of cataract Family History Father Diabetes Hyperlipemia Brother Lung cancer Social History Household Members: Spouse Alcohol intake: never Patient Tobacco Use Status: Former Tobacco user Tobacco use type: Cigar Current occupational status: retired Review of Systems Const All systems reviewed & are unremarkable except as noted in HPI and below Physical Exam Vital Signs: BMI result Body Mass Index 26.3 Const General: cooperative and no acute distress Orientation/consciousness: patient oriented x3 Resp Effort & Inspection: normal respiratory effort and able to speak in complete sentences Cardio Peripheral pulses: Peripheral pulses 2+ throughout Skin General skin exam: no rashes or lesions noted Neuro General: patient oriented x3 Extrem Other: Bilateral knees: Normal to inspection. No ecchymosis, erythema, or joint effusion. No tenderness to palpation to the medial or lateral joint lines. Full knee extension and flexion. Minimal crepitus felt with ROM. NVI. Office Procedures Joint Injection/Drain Joint Injection/Drain Primary Site: right knee Secondary Site: left knee Prep: site was prepped using aseptic technique, ethochloride spray was applied and injection warnings given Injected: 80 mg of, DepoMedrol, with 8 mL of (2% plain lido ) and in the joint Approach Used: anterolateral Procedure: The patient tolerated the procedure well, but had some pain with the injection and there was some relief with the local anesthesia Coding 51725 - Large joint Procedure code (CPT) selection complete Results Reviewed Results Reviewed: 03/17/23 10:20 Lidocaine HCl 2 % MPF [Xylocaine 2 % MPF] 5 ml .ROUTE .STK-MED ONE methylPREDNISolone acetate [DEPO-MedroL] 80 mg .ROUTE .STK-MED ONE Assessment & Plan Assessment & Plan (1) Osteoarthritis of right knee: Code(s): M17.11 - Unilateral primary osteoarthritis, right knee (2) Osteoarthritis of left knee: Code(s): M17.12 - Unilateral primary osteoarthritis, left knee Plan Mr. Gallardo is a 78-year-old male who presents in the office today, as a new patient, for an evaluation of bilateral knee pain. The patient reports ongoing pain and edema for 3 months for the left knee. He also states his right knee began to hurt about 2 weeks ago. He states his left knee is worse then his right knee. He claims the pain is on the lateral aspect of the bilateral knees. Patient denies any injury to the bilateral knees. Patient has a history of cortisone injections in the left knee, with relief. The patient was offered a cortisone injection in the bilateral knees with 80 mg of DepoMedrol. The patient was explained the risk, benefits, and alternatives to receiving this injection. After receiving consent for the injection, the patient had the procedure done while in office today. The patient tolerated the procedure well with no complications. Follow up will be PRN, or sooner if needed. X-rays of the bilateral knees which were obtained while in the office today and were reviewed by me, Meg Blanco PA-C, revealed bilateral osteoarthritis. Orders: Orders XR knee LT 2V Today M25.569 - Pain in unspecified knee XR knee RT 2V Today M25.569 - Pain in unspecified knee XR knee standing BI Today M25.569 - Pain in unspecified knee Patient Instructions: Scribed for Meg Blanco PA-C by Cathy Dean medical officer, on 03/17/2023 at 9:50 am, EST. Coding Level of Care Code New Pt Level 3 (21333) Diagnoses Osteoarthritis of right knee M17.11 Osteoarthritis of left knee M17.12 CPT Codes Coding - 23588 Large joint: 27242 - Large joint ([id number])
[2023-03-17 10:10] VITALS: BMI 26.3
== END 2023-03-17 10:46 | disposition home or self-care (01) ==
PROVIDERS: PCP Internal Medicine Medical Oncology; Visit Provider Physician Assistant
DX: M17.0 Bilateral primary osteoarthritis of knee (principal)
CPT/HCPCS: 20610; 99203

== ENCOUNTER 2023-03-25 07:57 | Outpatient (AMB) | payer MEDICARE, SELFPAY ==
[2023-03-25 08:06] LABS: Prothrombin Time Whole Bld POC 29.6 sec (11.1-13.5); ~PT, ~INR - Anti Coag Clinic 2.5 (0.9-1.1)
--- NOTE | 2023-03-25 08:11 | MHC.OFFVISCO ---
Intake Intake Visit Reasons: Anticoagulation Allergies No Known Allergies Allergy (Mild, Verified 03/25/23 08:00) NOT APPLICABLE Medication List - Last Reconciled 03/25/23 by Brenda Trimble RN losartan 25 mg PO DAILY simvastatin 40 mg PO DAILY sumatriptan succinate 0 mg PO warfarin 5 mg See Protocol PO DAILY Nursing Note INR: 2.5 in therapeutic range Medications and supplements reviewed recently had cortione injection No changes in health, diet, medications, or supplements, Denies any signs and symptoms of bleeding or bruising or clotting. Bleeding, bruising, clotting discussed Nutritional guidance given Dose: 7.5mg wed/ 5mg x 6 days F/U INR: 1 month Patient verbalizes understanding of instructions given Anti-Coag Initial Assessment Social Hx Patient Tobacco Use Status: Former Tobacco user Tobacco use type: Cigar alcohol intake: never Coding Level of Care Code Est Patient Level 1 Diagnoses Current use of anticoagulant therapy Z79.01 Assessment & Plan Assessment & Plan (1) Current use of anticoagulant therapy: Code(s): Z79.01 - residential (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 Category: Medical
== END 2023-03-25 08:13 | disposition home or self-care (01) ==
LOC: HO.ACS 07:57
PROVIDERS: PCP Internal Medicine Medical Oncology; Visit Provider Internal Medicine
DX: Z79.01 Long term (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 (principal)

== ENCOUNTER → 2023-03-25 07:57 | Outpatient (BNVA) | payer MEDICARE, SELFPAY | PROVIDERS: PCP Internal Medicine Medical Oncology; Visit Provider Internal Medicine | DX: Z86.718 Personal history of other venous thrombosis and embolism (principal); Z79.01 Long term (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; Z51.81 Encounter for therapeutic drug level monitoring | CPT/HCPCS: 85610; 99211 ==

== ENCOUNTER 2023-04-15 06:16 | Outpatient (REF) | payer MEDICARE, SELFPAY ==
[2023-04-15 06:29] LABS: MANUAL DIFF FLAG NO
[2023-04-15 06:59] LABS: Basophils Absolute Auto 0.1 X10*3/uL (0.0-0.2); Basophils Percent Auto 0.7 % (0-2); Eosinophils Absolute Auto 0.2 X10*3/uL (0.0-0.4); Eosinophils Percent Auto 1.8 % (0-4); Hematocrit 41.2 % (42.0-52.0); Hemoglobin 13.5 g/dl (14.0-18.0); Imm Gran Abs Auto 0.03 X10*3/uL (0.00-0.03); Imm Gran Pct Auto 0.3 % (0.0-0.4); Lymphocytes Percent Auto 33.9 % (20-40); Mean Corpuscular HGB Conc 32.8 g/dl (31.0-36.0); Mean Corpuscular Hemoglobin 30.4 pg (27.0-33.0); Mean Corpuscular Volume 92.8 fL (80.0-98.0); Mean Platelet Volume 9.5 fL (9.4-12.4); Monocytes Absolute Auto 0.9 X10*3/uL (0.1-1.2); Monocytes Percent Auto 10.6 % (2-11); Neutrophils Absolute Auto 4.7 x10*3/uL (2.0-8.3); Neutrophils Percent Auto 52.7 % (45-73); Platelet Count 334 X10*3/uL (160-400); Red Blood Count 4.44 X10*6/uL (4.60-5.80); Red Cell Distribution Width 14.2 % (11.0-16.0); White Blood Count 8.9 X10*3/uL (4.8-10.8)
[2023-04-15 07:22] LABS: Alanine Aminotransferase 17 U/L (0-40); Alkaline Phosphatase 66 U/L (39-117); Anion Gap 11 (12-20); Aspartate Amino Transferase 16 U/L (5-37); Bilirubin Total 0.7 mg/dL (0.0-1.0); Blood Urea Nitrogen 25 mg/dL (9-16); Calcium 8.7 mg/dL (8.4-10.2); Carbon Dioxide 27 mmol/L (22-29); Chloride 108 mmol/L (96-108); Cholesterol 147 mg/dL (<200); Estimated Glomerular Filt Rate > 60; Glucose Fasting 99 mg/dL (60-99); HDL Cholesterol 46 mg/dL (>40); LDL Cholesterol Calculated 90 mg/dL (<100); Sodium 142 mmol/L (135-145); Triglycerides 58 mg/dL (<150)
[2023-04-15 07:39] LABS: Prostate Specific Antigen 1.23 ng/mL (<0.05-4.0)
== END 2023-04-15 06:17 | disposition home or self-care (01) ==
LOC: HO.LAB 06:16
PROVIDERS: PCP Internal Medicine Medical Oncology; Visit Provider Internal Medicine Medical Oncology
DX: C91.10 Chronic lymphocytic leukemia of B-cell type not having achieved remission (principal); I10 Essential (primary) hypertension; E11.9 Type 2 diabetes mellitus without complications; E66.3 Overweight; R35.1 Nocturia; Z12.5 Encounter for screening for malignant neoplasm of prostate
CPT/HCPCS: 36415; 80053; 80061; 84153; 85025

== ENCOUNTER 2023-05-06 08:20 | Outpatient (AMB) | payer MEDICARE, SELFPAY ==
--- NOTE | 2023-05-06 08:23 | MHC.OFFVISCO ---
Intake Intake Visit Reasons: Anticoagulation Allergies No Known Allergies Allergy (Mild, Verified 05/06/23 08:20) NOT APPLICABLE Medication List - Last Reconciled 05/06/23 by Magda Matute RN losartan 25 mg PO DAILY simvastatin 40 mg PO DAILY sumatriptan succinate 0 mg PO warfarin 5 mg See Protocol PO DAILY Nursing Note INR: 2.3- in therapeutic range Medications and supplements reviewed- no changes No changes in health, diet, medications, or supplements, Denies any signs and symptoms of bleeding or bruising or clotting. Bleeding, bruising, clotting discussed Nutritional guidance given Dose: 5mg x 6, 7.5mg x 1 F/U INR: 4 weeks Patient verbalizes understanding of instructions given Anti-Coag Initial Assessment Social Hx Patient Tobacco Use Status: Former Tobacco user Tobacco use type: Cigar alcohol intake: never Coding Level of Care Code Est Patient Level 1 Diagnoses Current use of anticoagulant therapy Z79.01 Results AMB INR Fingerstick AMB INR Fingerstick 2.3 Last Edit by Magda Matute RN on 05/06/23 08:24 Assessment & Plan Assessment & Plan (1) Current use of anticoagulant therapy: Code(s): Z79.01 - director 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
[2023-05-06 08:25] LABS: Prothrombin Time Whole Bld POC 27.9 sec (11.1-13.5); ~PT, ~INR - Anti Coag Clinic 2.3 (0.9-1.1)
== END 2023-05-06 09:47 | disposition home or self-care (01) ==
LOC: HO.ACS 08:20
PROVIDERS: PCP Internal Medicine Medical Oncology; Visit Provider Internal Medicine
DX: Z79.01 Long term (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 (principal)

== ENCOUNTER → 2023-05-06 08:20 | Outpatient (BNVA) | payer MEDICARE, SELFPAY | PROVIDERS: PCP Internal Medicine Medical Oncology; Visit Provider Internal Medicine | DX: Z86.718 Personal history of other venous thrombosis and embolism (principal); Z51.81 Encounter for therapeutic drug level monitoring; Z79.01 Long term (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 | CPT/HCPCS: 85610; 99211 ==

== ENCOUNTER 2023-06-03 08:21 | Outpatient (AMB) | payer MEDICARE, SELFPAY ==
--- NOTE | 2023-06-03 08:25 | MHC.OFFVISCO ---
Intake Intake Visit Reasons: Anticoagulation Allergies No Known Allergies Allergy (Mild, Verified 06/03/23 08:21) NOT APPLICABLE Medication List - Last Reconciled 06/03/23 by Magda Matute RN losartan 25 mg PO DAILY simvastatin 40 mg PO DAILY sumatriptan succinate 0 mg PO warfarin 5 mg See Protocol PO DAILY Nursing Note INR: 2.3- in therapeutic range of 2-3 Medications and supplements reviewed- no changes No changes in health, diet, medications, or supplements, Denies any signs and symptoms of bleeding or bruising or clotting. 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
[2023-06-03 08:26] LABS: Prothrombin Time Whole Bld POC 27.7 sec (11.1-13.5); ~PT, ~INR - Anti Coag Clinic 2.3 (0.9-1.1)
== END 2023-06-03 08:29 | disposition home or self-care (01) ==
LOC: HO.ACS 08:21
PROVIDERS: PCP Internal Medicine Medical Oncology; Visit Provider Internal Medicine
DX: Z79.01 Long term (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 (principal)

== ENCOUNTER → 2023-06-03 08:21 | Outpatient (BNVA) | payer MEDICARE, SELFPAY | PROVIDERS: PCP Internal Medicine Medical Oncology; Visit Provider Internal Medicine | DX: Z86.718 Personal history of other venous thrombosis and embolism (principal); Z79.01 Long term (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; Z51.81 Encounter for therapeutic drug level monitoring | CPT/HCPCS: 85610; 99211 ==

== ENCOUNTER 2023-07-01 08:07 | Outpatient (AMB) | payer MEDICARE, SELFPAY ==
--- NOTE | 2023-07-01 08:11 | MHC.OFFVISCO ---
Intake Intake Visit Reasons: Anticoagulation Allergies No Known Allergies Allergy (Mild, Verified 07/01/23 08:07) NOT APPLICABLE Medication List - Last Reconciled 07/01/23 by Magda Matute RN losartan 25 mg PO DAILY simvastatin 40 mg PO DAILY sumatriptan succinate 0 mg PO warfarin 5 mg See Protocol PO DAILY Nursing Note INR: 2.2- in therapeutic range of 2-3 Medications and supplements reviewed- no changes pt states will be getting covid vaccine today No changes in health, diet, medications, or supplements pt with c.o head 'stuffiness'- states seasonal Denies any signs and symptoms of bleeding or bruising or clotting. Bleeding, bruising, clotting discussed Nutritional guidance given Dose: 5mg x 6, 7.5 x 1 F/U INR: pt req 4 week f/u Patient verbalizes understanding of instructions given Anti-Coag Initial Assessment Social Hx Patient Tobacco Use Status: Former Tobacco user Tobacco use type: Cigar alcohol intake: never Coding Level of Care Code Est Patient Level 1 Results AMB INR Fingerstick AMB INR Fingerstick 2.2 Last Edit by Magda Matute RN on 07/01/23 08:12
[2023-07-01 08:12] LABS: Prothrombin Time Whole Bld POC 25.8 sec (11.1-13.5); ~PT, ~INR - Anti Coag Clinic 2.2 (0.9-1.1)
== END 2023-07-01 08:17 | disposition home or self-care (01) ==
LOC: HO.ACS 08:07
PROVIDERS: PCP Internal Medicine Medical Oncology; Visit Provider Internal Medicine
DX: Z79.01 Long term (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 (principal)

== ENCOUNTER → 2023-07-01 08:07 | Outpatient (BNVA) | payer MEDICARE, SELFPAY | PROVIDERS: PCP Internal Medicine Medical Oncology; Visit Provider Internal Medicine | DX: Z86.718 Personal history of other venous thrombosis and embolism (principal); Z79.01 Long term (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; Z51.81 Encounter for therapeutic drug level monitoring | CPT/HCPCS: 85610; 99211 ==

== ENCOUNTER → 2023-07-29 08:03 | Outpatient (BNVA) | payer MEDICARE, SELFPAY | PROVIDERS: PCP Internal Medicine Medical Oncology; Visit Provider Internal Medicine | DX: Z86.718 Personal history of other venous thrombosis and embolism (principal); Z51.81 Encounter for therapeutic drug level monitoring; Z79.01 Long term (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 | CPT/HCPCS: 85610; 99211 ==

== ENCOUNTER 2023-08-26 08:05 | Outpatient (AMB) | payer MEDICARE, SELFPAY ==
--- NOTE | 2023-08-26 08:09 | MHC.OFFVISCO ---
Intake Intake Visit Reasons: Anticoagulation Allergies No Known Allergies Allergy (Mild, Verified 08/26/23 08:06) NOT APPLICABLE Medication List - Last Reconciled 08/26/23 by Magda Matute RN losartan 25 mg PO DAILY simvastatin 40 mg PO DAILY sumatriptan succinate 0 mg PO warfarin 5 mg See Protocol PO DAILY Nursing Note INR: 2.2- in therapeutic range of 2-3 Medications and supplements reviewed- no changes No changes in health, diet, medications, or supplements, Denies any signs and symptoms of bleeding or bruising or clotting. Bleeding, bruising, clotting discussed Nutritional guidance given Dose: 5mg x 6, 7.5mg x 1 F/U INR: 4 weeks Patient verbalizes understanding of instructions given Anti-Coag Initial Assessment Social Hx Patient Tobacco Use Status: Former Tobacco user Tobacco use type: Cigar alcohol intake: never Coding Level of Care Code Est Patient Level 1 Diagnoses Current use of anticoagulant therapy Z79.01 Results AMB INR Fingerstick AMB INR Fingerstick 2.2 Last Edit by Magda Matute RN on 08/26/23 08:10 Assessment & Plan Assessment & Plan (1) Current use of anticoagulant therapy: Code(s): Z79.01 - manager terminal (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 Category: Medical
[2023-08-26 08:10] LABS: Prothrombin Time Whole Bld POC 26.4 sec (11.1-13.5); ~PT, ~INR - Anti Coag Clinic 2.2 (0.9-1.1)
== END 2023-08-26 08:31 | disposition home or self-care (01) ==
LOC: HO.ACS 08:05
PROVIDERS: PCP Internal Medicine Medical Oncology; Visit Provider Internal Medicine
DX: Z79.01 Long term (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 (principal)

== ENCOUNTER → 2023-08-26 08:05 | Outpatient (BNVA) | payer MEDICARE, SELFPAY | PROVIDERS: PCP Internal Medicine Medical Oncology; Visit Provider Internal Medicine | DX: Z86.718 Personal history of other venous thrombosis and embolism (principal); Z79.01 Long term (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; Z51.81 Encounter for therapeutic drug level monitoring | CPT/HCPCS: 85610; 99211 ==

== ENCOUNTER 2023-09-23 09:06 | Outpatient (AMB) | payer MEDICARE, SELFPAY ==
[2023-09-23 09:13] LABS: Prothrombin Time Whole Bld POC 27.1 sec (11.1-13.5); ~PT, ~INR - Anti Coag Clinic 2.3 (0.9-1.1)
--- NOTE | 2023-09-23 09:14 | MHC.OFFVISCO ---
Intake Intake Visit Reasons: Anticoagulation Allergies No Known Allergies Allergy (Mild, Verified 09/23/23 09:06) NOT APPLICABLE Medication List - Last Reconciled 09/23/23 by Brenda Trimble RN losartan 25 mg PO DAILY simvastatin 40 mg PO DAILY sumatriptan succinate 0 mg PO venlafaxine 100 mg PO DAILY warfarin 5 mg See Protocol PO DAILY Nursing Note INR: 2.3 in therapeutic range Medications and supplements reviewed No changes in health, diet, medications, or supplements, Denies any signs and symptoms of bleeding or bruising or clotting. Bleeding, bruising, clotting discussed Nutritional guidance given Dose: KEEP SAME 7.5MG X 1 DAY/ 5MG X 6 DAYS F/U INR: 1 MONTH Patient verbalizes understanding of instructions given Anti-Coag Initial Assessment Social Hx Patient Tobacco Use Status: Former Tobacco user Tobacco use type: Cigar alcohol intake: never Questionnaires HAS-BLED Does the patient had uncontrolled Hypertension?: No Does the patient have renal disease?: No Does the patient have liver disease?: No Does the patient have a history of stroke?: No Has the patient had major bleeding or predisposition to bleeding?: Yes Does the patient have labile INRs?: No Is the patient over 65 years of age?: Yes Is the patient on medications that gives them a predisposition to bleeding?: Yes Does the patient use alcohol?: Yes HAS-BLED Score: 4 CHADSVASC Age: 75 or over Gender: Male Does the patient have a history of CHF?: No Does the patient have a history of Hypertension?: Yes Does the patient have a history of Stroke/TIA/Thromboembolism?: Yes Does the patient have a history of Vascular Disease (prior IL, PAD or aortic plaque)?: Yes Does the patient have a history of Diabetes?: Yes (diet controlled) CHADS VACS Score: 7 Marine Prediction Score Rsk VTE Active Cancer: No (in remission) Previous VTE, excluding superficial vein thrombosis: Yes Reduced mobility: No Already known Thrombophilic Condition: No With-in last month Trauma and/or Surgery: No Elderly 70 year or older: Yes Heart and/or Respiratory Failure: No Acute Myocardial infarction and/or Ischemic Stroke: No Acute Infection and/or Rheumatologic Disorder: No Obesity (BMI 30 or greater): No Ongoing Hormonal Treatment: No Score: 4 Marine Score less than 4; Low Risk of VTE Marnie Score 4 or greater; High Risk of VTE Coding Level of Care Code Est Patient Level 1 Diagnoses Current use of anticoagulant therapy Z79.01 Assessment & Plan Assessment & Plan (1) Current use of anticoagulant therapy: Code(s): Z79.01 - manager intermediate (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 Category: Medical
== END 2023-09-23 09:20 | disposition home or self-care (01) ==
LOC: HO.ACS 09:06
PROVIDERS: PCP Internal Medicine Medical Oncology; Visit Provider Internal Medicine
DX: Z79.01 Long term (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 (principal)

== ENCOUNTER → 2023-09-23 09:06 | Outpatient (BNVA) | payer MEDICARE, SELFPAY | PROVIDERS: PCP Internal Medicine Medical Oncology; Visit Provider Internal Medicine | DX: Z86.718 Personal history of other venous thrombosis and embolism (principal); Z79.01 Long term (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; Z51.81 Encounter for therapeutic drug level monitoring | CPT/HCPCS: 85610; 99211 ==

== ENCOUNTER 2023-09-30 06:07 | Outpatient (REF) | payer MEDICARE, SELFPAY ==
[2023-09-30 06:23] LABS: MANUAL DIFF FLAG NO
[2023-09-30 07:45] LABS: Basophils Absolute Auto 0.1 X10*3/uL (0.0-0.2); Eosinophils Absolute Auto 0.2 X10*3/uL (0.0-0.4); Eosinophils Percent Auto 1.6 % (0-4); Hematocrit 39.2 % (42.0-52.0); Hemoglobin 13.2 g/dl (14.0-18.0); Imm Gran Abs Auto 0.03 X10*3/uL (0.00-0.03); Imm Gran Pct Auto 0.3 % (0.0-0.4); Lymphocytes Absolute Auto 3.2 X10*3/uL (1.2-4.9); Lymphocytes Percent Auto 31.9 % (20-40); Mean Corpuscular HGB Conc 33.7 g/dl (31.0-36.0); Mean Corpuscular Hemoglobin 30.1 pg (27.0-33.0); Mean Corpuscular Volume 89.5 fL (80.0-98.0); Mean Platelet Volume 9.8 fL (9.4-12.4); Monocytes Absolute Auto 0.9 X10*3/uL (0.1-1.2); Monocytes Percent Auto 9.4 % (2-11); Neutrophils Absolute Auto 5.6 x10*3/uL (2.0-8.3); Neutrophils Percent Auto 55.8 % (45-73); Platelet Count 392 X10*3/uL (160-400); Red Blood Count 4.38 X10*6/uL (4.60-5.80); Red Cell Distribution Width 14.5 % (11.0-16.0)
[2023-09-30 08:19] LABS: Alanine Aminotransferase 19 U/L (0-40); Albumin Level 3.8 g/dL (3.5-5.0); Alkaline Phosphatase 62 U/L (39-117); Anion Gap 11 (12-20); Aspartate Amino Transferase 18 U/L (5-37); Bilirubin Total 0.6 mg/dL (0.0-1.0); Blood Urea Nitrogen 18 mg/dL (9-16); Calcium 8.9 mg/dL (8.4-10.2); Carbon Dioxide 27 mmol/L (22-29); Chloride 107 mmol/L (96-108); Cholesterol 149 mg/dL (<200); Estimated Glomerular Filt Rate > 60; Glucose Fasting 91 mg/dL (60-99); HDL Cholesterol 41 mg/dL (>40); LDL Cholesterol Calculated 89 mg/dL (<100); Potassium 3.9 mmol/L (3.3-5.1); Sodium 141 mmol/L (135-145); Total Protein 6.8 g/dL (6.5-8.0); Triglycerides 97 mg/dL (<150)
== END 2023-09-30 06:08 | disposition home or self-care (01) ==
LOC: HO.LAB 06:07
PROVIDERS: PCP Internal Medicine Medical Oncology; Visit Provider Internal Medicine Medical Oncology
DX: E11.9 Type 2 diabetes mellitus without complications (principal); E66.3 Overweight
CPT/HCPCS: 36415; 80053; 80061; 85025

== ENCOUNTER 2023-10-22 08:02 | Outpatient (AMB) | payer MEDICARE, SELFPAY ==
--- NOTE | 2023-10-22 08:10 | MHC.OFFVISCO ---
Intake Intake Visit Reasons: Anticoagulation Allergies No Known Allergies Allergy (Mild, Verified 10/22/23 08:06) NOT APPLICABLE Medication List - Last Reconciled 10/22/23 by aMgda Matute RN losartan 25 mg PO DAILY simvastatin 40 mg PO DAILY sumatriptan succinate 0 mg PO venlafaxine 100 mg PO DAILY warfarin 5 mg See Protocol PO DAILY Nursing Note INR: 2.0- in therapeutic range of 2-3 Medications and supplements reviewed- no changes No changes in health, diet, medications, or supplements, Denies any signs and symptoms of bleeding or bruising or clotting. Bleeding, bruising, clotting discussed Nutritional guidance given - no greens for 2 days, eat reds to raise Dose: 7.5mg x 1. 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
[2023-10-22 08:11] LABS: Prothrombin Time Whole Bld POC 24.5 sec (11.1-13.5)
== END 2023-10-22 08:21 | disposition home or self-care (01) ==
PROVIDERS: PCP Internal Medicine Medical Oncology; Visit Provider Internal Medicine
DX: Z79.01 Long term (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 (principal)

== ENCOUNTER → 2023-10-22 08:02 | Outpatient (BNVA) | payer MEDICARE, SELFPAY | PROVIDERS: PCP Internal Medicine Medical Oncology; Visit Provider Internal Medicine | DX: Z86.718 Personal history of other venous thrombosis and embolism (principal); Z79.01 Long term (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; Z51.81 Encounter for therapeutic drug level monitoring | CPT/HCPCS: 85610; 99211 ==

== ENCOUNTER 2023-11-19 08:02 | Outpatient (AMB) | payer MEDICARE, SELFPAY ==
--- NOTE | 2023-11-19 08:10 | MHC.OFFVISCO ---
Intake Intake Visit Reasons: Anticoagulation Allergies No Known Allergies Allergy (Mild, Verified 11/19/23 08:07) NOT APPLICABLE Medication List - Last Reconciled 11/19/23 by Magda Matute RN losartan 25 mg PO DAILY simvastatin 40 mg PO DAILY sumatriptan succinate 0 mg PO venlafaxine 100 mg PO DAILY warfarin 5 mg See Protocol PO DAILY Nursing Note INR: 2.5 in therapeutic range- 2-3 Medications and supplements reviewed- no changes No changes in health, diet, medications, or supplements, Denies any signs and symptoms of bleeding or bruising or clotting. Bleeding, bruising, clotting discussed Nutritional guidance given Dose: 5mg x 6, 7.5mg x 1 F/U INR: 4 weeks Patient verbalizes understanding of instructions given pt with occ missed dose and self doses- does use pill box Anti-Coag Initial Assessment Social Hx Patient Tobacco Use Status: Former Tobacco user Tobacco use type: Cigar alcohol intake: never Coding Level of Care Code Est Patient Level 1 Diagnoses Current use of anticoagulant therapy Z79.01 Results AMB INR Fingerstick AMB INR Fingerstick 2.5 Last Edit by Magda Matute RN on 11/19/23 08:11 Assessment & Plan Assessment & Plan (1) Current use of anticoagulant therapy: Code(s): Z79.01 - [facility] (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 Category: Medical
[2023-11-19 08:11] LABS: Prothrombin Time Whole Bld POC 30.5 sec (11.1-13.5); ~PT, ~INR - Anti Coag Clinic 2.5 (0.9-1.1)
== END 2023-11-19 08:15 | disposition home or self-care (01) ==
LOC: HO.ACS 08:02
PROVIDERS: PCP Internal Medicine Medical Oncology; Visit Provider Internal Medicine
DX: Z79.01 Long term (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 (principal)

== ENCOUNTER → 2023-11-19 08:02 | Outpatient (BNVA) | payer MEDICARE, SELFPAY | PROVIDERS: PCP Internal Medicine Medical Oncology; Visit Provider Internal Medicine | DX: I82.401 Acute embolism and thrombosis of unspecified deep veins of right lower extremity (principal); Z79.01 Long term (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; Z51.81 Encounter for therapeutic drug level monitoring | CPT/HCPCS: 85610; 99211 ==

== ENCOUNTER 2023-12-17 08:03 | Outpatient (AMB) | payer MEDICARE, SELFPAY ==
[2023-12-17 08:16] LABS: Prothrombin Time Whole Bld POC 27.3 sec (11.1-13.5); ~PT, ~INR - Anti Coag Clinic 2.3 (0.9-1.1)
--- NOTE | 2023-12-17 08:16 | MHC.OFFVISCO ---
Intake Intake Visit Reasons: Anticoagulation Allergies Seasonal Allergies Allergy (Intermediate, Verified 12/17/23 08:07) Cough Medication List - Last Reconciled 12/17/23 by Magda Matute RN losartan 25 mg PO DAILY simvastatin 40 mg PO DAILY sumatriptan succinate 0 mg PO warfarin 5 mg See Protocol PO DAILY Nursing Note INR: 2.3- in therapeutic range OF 2-3 Medications and supplements reviewed- states not taking venlafaxine for some time No changes in health, diet, medications, or supplements, Denies any signs and symptoms of bleeding or bruising or clotting. 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
== END 2023-12-17 08:29 | disposition home or self-care (01) ==
LOC: HO.ACS 08:03
PROVIDERS: PCP Internal Medicine Medical Oncology; Visit Provider Internal Medicine
DX: Z79.01 Long term (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 (principal)

== ENCOUNTER → 2023-12-17 08:03 | Outpatient (BNVA) | payer MEDICARE, SELFPAY | PROVIDERS: PCP Internal Medicine Medical Oncology; Visit Provider Internal Medicine | DX: I82.401 Acute embolism and thrombosis of unspecified deep veins of right lower extremity (principal); Z51.81 Encounter for therapeutic drug level monitoring; Z79.01 Long term (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 | CPT/HCPCS: 85610; 99211 ==

== ENCOUNTER 2024-01-20 09:13 | Outpatient (AMB) | payer MEDICARE, SELFPAY ==
--- NOTE | 2024-01-20 09:32 | MHC.OFFVISCO ---
Intake Intake Visit Reasons: Anticoagulation Allergies Seasonal Allergies Allergy (Intermediate, Verified 01/20/24 09:27) Cough venlafaxine Adverse Reaction (Intermediate, Verified 01/20/24 09:27) Headache Medication List - Last Reconciled 01/20/24 by Magda Matute RN losartan 25 mg PO DAILY simvastatin 40 mg PO DAILY sumatriptan succinate 100 mg PO PRN warfarin 5 mg See Protocol PO DAILY Nursing Note INR 3.3=?? out of therapeutic range of 2-3 Medications and supplements reviewed Patient status: no c.o offered Medications or supplements: no changes Diet: had less greens, was at the [facility] and ate out a lot Denies any signs and symptoms of bleeding or clotting or unusual bruising Bleeding, bruising, clotting discussed Nutritional guidance given: eat a green today Dose: already took warfarin today , reduce tomm to 5mg then cont reg 7.5mg x 1. 5mg x 6 F/U INR Date : pt req 3 weeks? Patient verbalizing understanding of instructions given. Anti-Coag Initial Assessment Social Hx Patient Tobacco Use Status: Former Tobacco user Tobacco use type: Cigar alcohol intake: never Coding Level of Care Code Est Patient Level 1 Diagnoses Current use of anticoagulant therapy Z79.01 Assessment & Plan Assessment & Plan (1) Current use of anticoagulant therapy: Code(s): Z79.01 - [facility] (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 Category: Medical
[2024-01-20 09:33] LABS: Prothrombin Time Whole Bld POC 39.9 sec (11.1-13.5); ~PT, ~INR - Anti Coag Clinic 3.3 (0.9-1.1)
== END 2024-01-20 09:38 | disposition home or self-care (01) ==
LOC: HO.ACS 09:13
PROVIDERS: PCP Internal Medicine Medical Oncology; Visit Provider Internal Medicine
DX: Z79.01 Long term (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 (principal)

== ENCOUNTER → 2024-01-20 09:13 | Outpatient (BNVA) | payer MEDICARE, SELFPAY | PROVIDERS: PCP Internal Medicine Medical Oncology; Visit Provider Internal Medicine | DX: Z86.718 Personal history of other venous thrombosis and embolism (principal); Z79.01 Long term (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; Z51.81 Encounter for therapeutic drug level monitoring | CPT/HCPCS: 85610; 99211 ==

== ENCOUNTER 2024-01-26 06:05 | Outpatient (REF) | payer MEDICARE, SELFPAY ==
[2024-01-26 06:22] LABS: MANUAL DIFF FLAG NO
[2024-01-26 07:52] LABS: Basophils Absolute Auto 0.1 X10*3/uL (0.0-0.2); Eosinophils Absolute Auto 0.1 X10*3/uL (0.0-0.4); Eosinophils Percent Auto 1.4 % (0-4); Hematocrit 39.6 % (42.0-52.0); Hemoglobin 13.3 g/dl (14.0-18.0); Imm Gran Abs Auto 0.05 X10*3/uL (0.00-0.03); Imm Gran Pct Auto 0.6 % (0.0-0.4); Lymphocytes Percent Auto 32.5 % (20-40); Mean Corpuscular HGB Conc 33.6 g/dl (31.0-36.0); Mean Corpuscular Hemoglobin 30.6 pg (27.0-33.0); Mean Platelet Volume 9.9 fL (9.4-12.4); Monocytes Percent Auto 10.5 % (2-11); Neutrophils Absolute Auto 4.9 x10*3/uL (2.0-8.3); Platelet Count 388 X10*3/uL (160-400); Red Blood Count 4.35 X10*6/uL (4.60-5.80); Red Cell Distribution Width 14.1 % (11.0-16.0); White Blood Count 9.1 X10*3/uL (4.8-10.8)
[2024-01-26 08:21] LABS: Alanine Aminotransferase 19 U/L (0-40); Albumin Level 3.9 g/dL (3.5-5.0); Alkaline Phosphatase 77 U/L (39-117); Anion Gap 11 (12-20); Aspartate Amino Transferase 18 U/L (5-37); Bilirubin Total 0.4 mg/dL (0.0-1.0); Blood Urea Nitrogen 23 mg/dL (9-16); Calcium 9.3 mg/dL (8.4-10.2); Carbon Dioxide 26 mmol/L (22-29); Chloride 109 mmol/L (96-108); Cholesterol 138 mg/dL (<200); Estimated Glomerular Filt Rate > 60; Glucose Fasting 105 mg/dL (60-99); HDL Cholesterol 42 mg/dL (>40); LDL Cholesterol Calculated 85 mg/dL (<100); Potassium 4.3 mmol/L (3.3-5.1); Sodium 142 mmol/L (135-145); Total Protein 6.9 g/dL (6.5-8.0); Triglycerides 59 mg/dL (<150)
[2024-01-26 08:37] LABS: Prostate Specific Antigen 1.37 ng/mL (<0.05-4.0)
== END 2024-01-26 06:06 | disposition home or self-care (01) ==
LOC: HO.LAB 06:05
PROVIDERS: PCP Internal Medicine Medical Oncology; Visit Provider Internal Medicine Medical Oncology
DX: E11.9 Type 2 diabetes mellitus without complications (principal); C91.10 Chronic lymphocytic leukemia of B-cell type not having achieved remission; C34.90 Malignant neoplasm of unspecified part of unspecified bronchus or lung; I10 Essential (primary) hypertension; N40.0 Benign prostatic hyperplasia without lower urinary tract symptoms; Z12.5 Encounter for screening for malignant neoplasm of prostate
CPT/HCPCS: 36415; 80053; 80061; 84153; 85025

== ENCOUNTER 2024-02-10 08:00 | Outpatient (AMB) | payer MEDICARE, SELFPAY ==
[2024-02-10 08:06] LABS: Prothrombin Time Whole Bld POC 22.3 sec (11.1-13.5); ~PT, ~INR - Anti Coag Clinic 1.9 (0.9-1.1)
--- NOTE | 2024-02-10 08:10 | MHC.OFFVISCO ---
Intake Intake Visit Reasons: Anticoagulation Allergies Seasonal Allergies Allergy (Intermediate, Verified 02/10/24 08:02) Cough venlafaxine Adverse Reaction (Intermediate, Verified 02/10/24 08:02) Headache Medication List - Last Reconciled 02/10/24 by Razia López, RN losartan 25 mg PO DAILY simvastatin 40 mg PO DAILY sumatriptan succinate 100 mg PO PRN warfarin 5 mg See Protocol PO DAILY Nursing Note INR 1.9?out of therapeutic range of 2-3 Medications and supplements reviewed Patient status: well Medications or supplements: no changes Diet: usual diet for pt Denies any signs and symptoms of bleeding or clotting or unusual bruising Bleeding, bruising, clotting discussed Nutritional guidance given: to avoid greens today and to have a serving of food from the list that raises the INR. Dose: 5mg X 6 days and 7.5mg X 1 day (FRI) F/U INR Date : 03/09/24?? Patient verbalizing understanding of instructions given. Anti-Coag Initial Assessment Social Hx Patient Tobacco Use Status: Former Tobacco user Tobacco use type: Cigar alcohol intake: never Coding Level of Care Code Est Patient Level 1 Diagnoses Current use of anticoagulant therapy Z79.01 Assessment & Plan Assessment & Plan (1) Current use of anticoagulant therapy: Code(s): Z79.01 - rn 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
== END 2024-02-10 08:13 | disposition home or self-care (01) ==
LOC: HO.ACS 08:00
PROVIDERS: PCP Internal Medicine Medical Oncology; Visit Provider Internal Medicine
DX: Z79.01 Long term (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 (principal)

== ENCOUNTER → 2024-02-10 08:00 | Outpatient (BNVA) | payer MEDICARE, SELFPAY | PROVIDERS: PCP Internal Medicine Medical Oncology; Visit Provider Internal Medicine | DX: Z86.718 Personal history of other venous thrombosis and embolism (principal); Z79.01 Long term (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; Z51.81 Encounter for therapeutic drug level monitoring | CPT/HCPCS: 85610; 99211 ==

== ENCOUNTER 2024-03-09 07:52 | Outpatient (AMB) | payer MEDICARE, SELFPAY ==
[2024-03-09 08:02] LABS: Prothrombin Time Whole Bld POC 20.4 sec (11.1-13.5); ~PT, ~INR - Anti Coag Clinic 1.7 (0.9-1.1)
--- NOTE | 2024-03-09 08:08 | MHC.OFFVISCO ---
Intake Intake Visit Reasons: Anticoagulation Allergies Seasonal Allergies Allergy (Intermediate, Verified 03/09/24 07:56) Cough venlafaxine Adverse Reaction (Intermediate, Verified 03/09/24 07:56) Headache Medication List - Last Reconciled 03/09/24 by Brenda Trimble RN losartan 25 mg PO DAILY simvastatin 40 mg PO DAILY sumatriptan succinate 100 mg PO PRN warfarin 5 mg See Protocol PO DAILY Nursing Note INR 1.7?? out of therapeutic range Medications and supplements reviewed Patient status: MISSED DOSE 5MG Medications or supplements: NO CHANGES - NOT TAKING TRAZADONE - HAD REFILL BUT NOT TAKING IT- IT WAS EXPLAINED IT LOWERS INR AND MAY NEED TO ADJUST DIET IF HE TAKES IT REGULARY- OR HIS WARARIN DOSE Diet: GOOD Denies any signs and symptoms of bleeding or clotting or unusual bruising Bleeding, bruising, clotting discussed Nutritional guidance given: NO GREENS X 2 DAYS Dose: 7.5MG X 3 DAYS THIS WEEK THEN RESUME 7.5MG X 1 DAY /5MG X 6 DAYS F/U INR Date : 2 WEEKS IF STABLE RESUME 4 WEEKS?? Patient verbalizing understanding of instructions given. Anti-Coag Initial Assessment Social Hx Patient Tobacco Use Status: Former Tobacco user Tobacco use type: Cigar alcohol intake: never Coding Level of Care Code Est Patient Level 1 Diagnoses Current use of anticoagulant therapy Z79.01 Results AMB INR Fingerstick AMB INR Fingerstick 1.7 Last Edit by Brenda Trimble RN on 03/09/24 08:04 MANUAL Assessment & Plan Assessment & Plan (1) Current use of anticoagulant therapy: Code(s): Z79.01 - correction (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 Category: Medical
== END 2024-03-09 08:10 | disposition home or self-care (01) ==
LOC: HO.ACS 07:52
PROVIDERS: PCP Internal Medicine Medical Oncology; Visit Provider Internal Medicine
DX: Z79.01 Long term (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 (principal)

== ENCOUNTER → 2024-03-09 07:52 | Outpatient (BNVA) | payer MEDICARE, SELFPAY | PROVIDERS: PCP Internal Medicine Medical Oncology; Visit Provider Internal Medicine | DX: Z86.718 Personal history of other venous thrombosis and embolism (principal); Z79.01 Long term (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; Z51.81 Encounter for therapeutic drug level monitoring | CPT/HCPCS: 85610; 99211 ==

== ENCOUNTER 2024-03-15 10:58 | Emergency (ER) | payer MEDICARE, SELFPAY ==
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
[2024-03-15 11:24] VITALS: BP 147/88; PULSE 102; RESP 18; TEMP 36.6; O2SAT 97; BMI 26.4
--- NOTE | 2024-03-15 11:24 | ED.GENADULT ---
HPI - General Adult General Chief complaint: Wound/Laceration Stated complaint: l eyebrow lac hit with golf ball Time Seen by Provider: 03/15/24 13:13 Source: patient and old records reviewed Mode of arrival: ambulatory Limitations: no limitations History of Present Illness ED Provider: TAYLOR HERNANDEZ narrative: 79 yo male with PMH of DVT on coumadin, HTN, HLD here with c/o playing gold around 11am when he was struck in the left eyebrow by a stray golf ball. He was knocked to the ground but doesn't think he had LOC. He had bleeding from L eyebrow. No change in vision. No neck pain. [place] a little dizzy after but no confusion, no vomiting and feels back to baseline. MD complaint: golf ball to head Onset (ago): hour(s) (11am today) Location: head Radiation: non-radiation Severity: mild Quality: aching Pain Consistency: constant Relieving factors: none Exacerbating factors: other (palpation) Associated symptoms: denies other symptoms Treatments prior to arrival: other (bandage) Related Data Home Medications ?Medication ?Instructions ?Recorded ?Confirmed losartan 25 mg tablet 25 mg PO DAILY 09/21/20 03/09/24 simvastatin 40 mg tablet 40 mg PO DAILY 09/21/20 03/09/24 sumatriptan succinate 100 mg tablet 100 mg PO PRN 01/20/24 03/09/24 Previous Rx's ?Medication ?Instructions ?Recorded warfarin 5 mg tablet 5 mg PO DAILY #90 tabs 05/25/20 Allergies Allergy/AdvReac Type Severity Reaction Status Date / Time Seasonal Allergies Allergy Intermediate Cough Verified 03/15/24 11:28 venlafaxine AdvReac Intermediate Headache Verified 03/15/24 11:28 Review of Systems Review of Systems: Constitutional : No Fever, No Chills, No Fatigue ENT/Mouth : No sore throat, No Rhinorrhea Eyes: No Eye Pain, No Swelling, No Redness Cardiovascular : No Chest Pain, No SOB, No Dyspnea on Exertion Respiratory : No Cough, No Sputum Gastrointestinal : No Nausea, No Vomiting, No Diarrhea, No abdominal Pain Genitourinary : No Dysuria, No Urinary Frequency, No Hematuria, Musculoskeletal : No joint pain, No Myalgias, No Joint Swelling Skin : No Skin Lesions, No rash, pos skin laceration Neuro : No Weakness, No Numbness, No Dizziness, no Headache All other systems reviewed and are negative PMFSH Past Medical History Attestation statement: The following information was validated with the patient. 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 Current use of anticoagulant therapy Surgical History History of cataract Family History Family History Father Diabetes Hyperlipemia Brother Lung cancer Social History Social History Household Members: Spouse Alcohol intake: never Patient Tobacco Use Status: Former Tobacco user Tobacco use type: Cigar Advance Directives: No Advance Directives Information Provided: No Do you have a plan to hurt others: No Plan Current occupational status: retired Physical Exam ED Vital Signs: Vital Signs - 24 hr 03/15/24 11:24 03/15/24 13:23 Temperature 97.8 F Pulse Rate 102 H 87 Respiratory Rate 18 18 Blood Pressure 147/88 H 148/79 H Pulse Oximetry 97 98 Oxygen Delivery Method Room Air BMI result Body Mass Index 26.4 Appearance: Alert. Oriented X3. No acute distress. Eyes: Pupils equal, round and reactive to light. normal vision, no subconj hemorrhage, no hyphema, L eye mild periorbital contusion ENT: Pharynx normal. L eyebrow scrape and gouge noted with 1 cm superficial stellate laceration Neck: Normal inspection. Neck supple. nontender CVS: Normal heart rate and rhythm. Pulses normal. Respiratory: No respiratory distress. Breath sounds normal. Abdomen: Soft and nontender. Skin: Skin warm and dry. Normal skin color. Normal skin turgor. Extremities: No lower extremity edema. No calf ttp Neuro: Oriented X 3. No motor deficit. No sensory deficit. Course Course Course Narrative: RME performed by Lynne Fields PA-C. Patient is a 79 year old assigned male at presenting to the emergency department with a head injury. Patient states that he got hit in the head with a golfball and has a laceration that won't stop bleeding. Patient states that he is still on Warfarin. Detailed physical exam and review of systems are deferred to the outreach clinician. Imaging ordered. Patient placed back in the waiting room pending room availability and results. Procedures Laceration Laceration 1: Site: face Side (If applicable): left Size (cm): 1 Description: stellate Depth: simple, single layer Pre-repair: wound explored, irrigated extensively and deep structures intact Skin layer closed with: other (skin adhesive surgical glue) Medical Decision Making Medical Decision Making MDM Narrative: 79 yo male with PMH of DVT on coumadin, HTN, HLD here with c/o isolated head injury with golf ball to head, GCS 15 - CT head negative, wound repaired no acute changes 3 hours post head injury lives with can be monitored at home. No other injuries no neck pain reported. Differential Diagnosis Differential Diagnoses: The differential diagnosis associated with the presentation includes head trauma, ICH, soft tissue injury Admission/Observation Consideration of admission/observation: Escalation of care including admission/observation considered GCS 15 not toxic, CT head negative, lives with will not be alone stable for DC Independent Interpretation I performed an independent interpretation of an: CT Scan (no trauma noted) Radiology Impression Discussion of test interpretation with radiology: I have reviewed the radiologist's reading. External Record Review External record reviewed: Outpatient record Discharge Plan Discharge Clinical Impression: Laceration Head injury Qualifiers: Encounter type: initial encounter Qualified Code(s): S09.90XA - Unspecified injury of head, initial encounter Patient Disposition: Home, Self-Care Instructions: Head Injury (ED), Skin Adhesive Care (ED) Additional Instructions: no bleed seen on CT scan you will have bruising on that eye that will darken and then turn different shades it will take a few weeks to heal glue is in place - okay to shower in 24 hours and get it wet no pools, oceans, lakes until it falls off in 5 to 7 days - the glue will fall off on its own return for confusion, vomiting, severe headaches, redness, yellow drainage, signs of infection of the wound or any other concerns. Prescriptions: No Action losartan 25 mg tablet 25 mg PO DAILY simvastatin 40 mg tablet 40 mg PO DAILY warfarin 5 mg tablet 5 mg PO DAILY Qty: 90 0RF Protocol: Dose Management Condition: Friday (Week One) Dose/Route: 5 mg Instruction: 1 x 5 mg tablet Condition: Friday Dose/Route: 5 mg Instruction: 1 x 5 mg tablet Condition: Friday Dose/Route: 7.5 mg Instruction: 1.5 x 5 mg tablets Condition: Friday Dose/Route: 7.5 mg Instruction: 1.5 x 5 mg tablets Condition: Dose/Route: 7.5 mg Instruction: 1.5 x 5 mg tablets Condition: Friday Dose/Route: 5 mg Instruction: 1 x 5 mg tablet Condition: Friday Dose/Route: 5 mg Instruction: 1 x 5 mg tablet Condition: Friday (Week Two) Dose/Route: 5 mg Instruction: 1 x 5 mg tablet Condition: Friday Dose/Route: 5 mg Instruction: 1 x 5 mg tablet Condition: Friday Dose/Route: 5 mg Instruction: 1 x 5 mg tablet Condition: Friday Dose/Route: 7.5 mg Instruction: 1.5 x 5 mg tablets Condition: Dose/Route: 5 mg Instruction: 1 x 5 mg tablet Condition: Friday Dose/Route: 5 mg Instruction: 1 x 5 mg tablet Condition: Friday Dose/Route: 5 mg Instruction: 1 x 5 mg tablet Protocol Text: Adjustment Start Date: Friday03/09/24 INR Value: 1.9 INR Date: 02/10/24 Additional Instructions: REVIEW FOOD LIST WEEKLY, AVOID GREENS X 2 DAYS THEN RESUME USUAL DIET Rx Instructions: 5MG X6, 7.5MGX1 sumatriptan succinate 100 mg tablet 100 mg PO PRN Print Language: Citizen Of [place]
[2024-03-15 13:23] VITALS: BP 148/79; PULSE 87; RESP 18; O2SAT 98
--- NOTE | 2024-03-15 15:27 | PC.NURSE ---
assumed care of this pt, resting in nad, no complaints at this time. a&ox4. requesting food. awaiting ct results.
[2024-03-15 16:38] VITALS: BP 148/79; PULSE 87; RESP 18; TEMP 36.8; O2SAT 98
== END 2024-03-15 16:39 | disposition home or self-care (01) ==
PROVIDERS: Emergency Provider Emergency Medicine; PCP Internal Medicine Medical Oncology
DX: S01.112A Laceration without foreign body of left eyelid and periocular area, initial encounter (principal); R51.9 Headache, unspecified; W26.9XXA Contact with unspecified sharp object(s), initial encounter; Y93.53 Activity, golf; Y92.39 Other specified sports and athletic area as the place of occurrence of the external cause; Y99.8 Other external cause status
CPT/HCPCS: 12051; 70450; 99284

== ENCOUNTER 2024-03-25 08:04 | Outpatient (AMB) | payer MEDICARE, SELFPAY ==
[2024-03-25 08:09] LABS: Prothrombin Time Whole Bld POC 25.8 sec (11.1-13.5); ~PT, ~INR - Anti Coag Clinic 2.1 (0.9-1.1)
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
== END 2024-03-25 08:22 | disposition home or self-care (01) ==
LOC: HO.ACS 08:04
PROVIDERS: PCP Internal Medicine Medical Oncology; Visit Provider Internal Medicine
DX: Z79.01 Long term (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 (principal)

== ENCOUNTER → 2024-03-25 08:04 | Outpatient (BNVA) | payer MEDICARE, SELFPAY | PROVIDERS: PCP Internal Medicine Medical Oncology; Visit Provider Internal Medicine | DX: Z86.718 Personal history of other venous thrombosis and embolism (principal); Z79.01 Long term (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; Z51.81 Encounter for therapeutic drug level monitoring | CPT/HCPCS: 85610; 99211 ==

== ENCOUNTER 2024-04-20 08:03 | Outpatient (AMB) | payer MEDICARE, SELFPAY ==
--- NOTE | 2024-04-20 08:11 | MHC.OFFVISCO ---
Intake Intake Visit Reasons: Anticoagulation Allergies Seasonal Allergies Allergy (Intermediate, Verified 04/20/24 08:05) Cough venlafaxine Adverse Reaction (Intermediate, Verified 04/20/24 08:05) Headache Medication List - Last Reconciled 04/20/24 by Magda Matute RN losartan 25 mg PO DAILY simvastatin 40 mg PO DAILY sumatriptan succinate 100 mg PO PRN trazodone 50 mg PO BEDTIME warfarin 5 mg See Protocol PO DAILY Nursing Note INR 1.9-? out of therapeutic range of 2-3 Medications and supplements reviewed Patient status: no c.o, states may have missed a dose Medications or supplements: trazadone noted on med profile, pt states takes half tab trazadone prn and very infreq. aware will raise inr and would require inr check more freq Diet: same Denies any signs and symptoms of bleeding or clotting or unusual bruising Bleeding, bruising, clotting discussed Nutritional guidance given: no greens for 2 days Dose: already took warfarin this am. take 7.5mg tomm then cont reg dosing, 5mg x 6. 7.5mg x 1 F/U INR Date : pt req 4 weeks?? Patient verbalizing understanding of instructions given. Anti-Coag Initial Assessment Social Hx Patient Tobacco Use Status: Former Tobacco user Tobacco use type: Cigar alcohol intake: never Coding Level of Care Code Est Patient Level 1 Diagnoses Current use of anticoagulant therapy Z79.01 Assessment & Plan Assessment & Plan (1) Current use of anticoagulant therapy: Code(s): Z79.01 - snf (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 Medications: New trazodone 50 mg PO BEDTIME PRN
[2024-04-20 08:12] LABS: Prothrombin Time Whole Bld POC 22.2 sec (11.1-13.5); ~PT, ~INR - Anti Coag Clinic 1.9 (0.9-1.1)
== END 2024-04-20 08:19 | disposition home or self-care (01) ==
LOC: HO.ACS 08:03
PROVIDERS: PCP Internal Medicine Medical Oncology; Visit Provider Internal Medicine
DX: Z79.01 Long term (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 (principal)

== ENCOUNTER → 2024-04-20 08:03 | Outpatient (BNVA) | payer MEDICARE, SELFPAY | PROVIDERS: PCP Internal Medicine Medical Oncology; Visit Provider Internal Medicine | DX: Z86.718 Personal history of other venous thrombosis and embolism (principal); Z79.01 Long term (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; Z51.81 Encounter for therapeutic drug level monitoring | CPT/HCPCS: 85610; 99211 ==

== ENCOUNTER 2024-05-18 08:00 | Outpatient (AMB) | payer MEDICARE, SELFPAY ==
[2024-05-18 08:05] LABS: Prothrombin Time Whole Bld POC 25.7 sec (11.1-13.5); ~PT, ~INR - Anti Coag Clinic 2.1 (0.9-1.1)
--- NOTE | 2024-05-18 08:09 | MHC.OFFVISCO ---
Intake Intake Visit Reasons: Anticoagulation Allergies Seasonal Allergies Allergy (Intermediate, Verified 04/20/24 08:05) Cough venlafaxine Adverse Reaction (Intermediate, Verified 04/20/24 08:05) Headache Nursing Note INR: 2.1 in therapeutic range Medications and supplements reviewed No changes in health, diet, medications, or supplements, Denies any signs and symptoms of bleeding or bruising or clotting. 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
== END 2024-05-18 08:10 | disposition home or self-care (01) ==
LOC: HO.ACS 08:00
PROVIDERS: PCP Internal Medicine Medical Oncology; Visit Provider Internal Medicine
DX: Z79.01 Long term (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 (principal)

== ENCOUNTER → 2024-05-18 08:00 | Outpatient (BNVA) | payer MEDICARE, SELFPAY | PROVIDERS: PCP Internal Medicine Medical Oncology; Visit Provider Internal Medicine | DX: Z86.718 Personal history of other venous thrombosis and embolism (principal); Z79.01 Long term (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; Z51.81 Encounter for therapeutic drug level monitoring | CPT/HCPCS: 85610; 99211 ==

== ENCOUNTER 2024-06-07 06:22 | Outpatient (REF) | payer MEDICARE, SELFPAY ==
[2024-06-07 06:38] LABS: MANUAL DIFF FLAG NO
[2024-06-07 07:40] LABS: Basophils Absolute Auto 0.1 X10*3/uL (0.0-0.2); Basophils Percent Auto 0.7 % (0-2); Eosinophils Absolute Auto 0.1 X10*3/uL (0.0-0.4); Eosinophils Percent Auto 1.5 % (0-4); Hematocrit 39.9 % (42.0-52.0); Hemoglobin 13.5 g/dl (14.0-18.0); Imm Gran Abs Auto 0.04 X10*3/uL (0.00-0.03); Imm Gran Pct Auto 0.4 % (0.0-0.4); Lymphocytes Absolute Auto 3.2 X10*3/uL (1.2-4.9); Lymphocytes Percent Auto 33.7 % (20-40); Mean Corpuscular HGB Conc 33.8 g/dl (31.0-36.0); Mean Corpuscular Hemoglobin 30.9 pg (27.0-33.0); Mean Corpuscular Volume 91.3 fL (80.0-98.0); Mean Platelet Volume 9.9 fL (9.4-12.4); Neutrophils Absolute Auto 5.1 x10*3/uL (2.0-8.3); Neutrophils Percent Auto 53.7 % (45-73); Platelet Count 355 X10*3/uL (160-400); Red Blood Count 4.37 X10*6/uL (4.60-5.80); White Blood Count 9.5 X10*3/uL (4.8-10.8)
[2024-06-07 08:31] LABS: Alanine Aminotransferase 25 U/L (0-40); Alkaline Phosphatase 64 U/L (39-117); Anion Gap 14 (12-20); Aspartate Amino Transferase 27 U/L (5-37); Bilirubin Total 0.8 mg/dL (0.0-1.0); Blood Urea Nitrogen 20 mg/dL (9-16); Calcium 9.4 mg/dL (8.4-10.2); Carbon Dioxide 27 mmol/L (22-29); Chloride 108 mmol/L (96-108); Cholesterol 147 mg/dL (<200); Estimated Glomerular Filt Rate > 60; Glucose Fasting 98 mg/dL (60-99); HDL Cholesterol 43 mg/dL (>40); LDL Cholesterol Calculated 91 mg/dL (<100); Potassium 4.7 mmol/L (3.3-5.1); Sodium 144 mmol/L (135-145); Total Protein 6.9 g/dL (6.5-8.0); Triglycerides 66 mg/dL (<150)
[2024-06-07 09:01] LABS: Prostate Specific Antigen 1.23 ng/mL (<0.05-4.0)
== END 2024-06-07 06:23 | disposition home or self-care (01) ==
LOC: HO.LAB 06:22
PROVIDERS: PCP Internal Medicine Medical Oncology; Visit Provider Internal Medicine Medical Oncology
DX: C91.10 Chronic lymphocytic leukemia of B-cell type not having achieved remission (principal); E66.3 Overweight; N40.0 Benign prostatic hyperplasia without lower urinary tract symptoms; Z12.5 Encounter for screening for malignant neoplasm of prostate
CPT/HCPCS: 36415; 80053; 80061; 84153; 85025

== ENCOUNTER 2024-06-15 08:01 | Outpatient (AMB) | payer MEDICARE, SELFPAY ==
[2024-06-15 08:09] LABS: Prothrombin Time Whole Bld POC 24.4 sec (11.1-13.5)
--- NOTE | 2024-06-15 08:18 | MHC.OFFVISCO ---
Intake Intake Visit Reasons: Anticoagulation Allergies Seasonal Allergies Allergy (Intermediate, Verified 06/15/24 08:03) Cough venlafaxine Adverse Reaction (Intermediate, Verified 06/15/24 08:03) Headache Medication List - Last Reconciled 06/15/24 by Razia López, RN losartan 25 mg PO DAILY simvastatin 40 mg PO DAILY sumatriptan succinate 100 mg PO PRN trazodone 50 mg PO BEDTIME PRN warfarin 5 mg See Protocol PO DAILY Nursing Note INR: 2.0 in therapeutic range of 2-3 Medications and supplements reviewed No changes in health, diet, medications, or supplements, Denies any signs and symptoms of bleeding or bruising or clotting. Bleeding, bruising, clotting discussed Nutritional guidance given to avoid greens today and to have a serving of foods that raise the INR. Food list reviewed and handout given to pt about food effect on INR. Dose: 5mg X 6 days and 7.5mg X 1 day. 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
== END 2024-06-15 08:21 | disposition home or self-care (01) ==
LOC: HO.ACS 08:01
PROVIDERS: PCP Internal Medicine Medical Oncology; Visit Provider Internal Medicine
DX: Z79.01 Long term (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 (principal)

== ENCOUNTER → 2024-06-15 08:01 | Outpatient (BNVA) | payer MEDICARE, SELFPAY | PROVIDERS: PCP Internal Medicine Medical Oncology; Visit Provider Internal Medicine | DX: Z86.718 Personal history of other venous thrombosis and embolism (principal); Z79.01 Long term (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; Z51.81 Encounter for therapeutic drug level monitoring | CPT/HCPCS: 85610; 99211 ==

== ENCOUNTER 2024-07-13 07:57 | Outpatient (AMB) | payer MEDICARE, SELFPAY ==
[2024-07-13 08:11] LABS: Prothrombin Time Whole Bld POC 19.4 sec (11.1-13.5); ~PT, ~INR - Anti Coag Clinic 1.6 (0.9-1.1)
--- NOTE | 2024-07-13 08:20 | MHC.OFFVISCO ---
Intake Intake Visit Reasons: Anticoagulation Allergies Seasonal Allergies Allergy (Intermediate, Verified 07/13/24 08:04) Cough venlafaxine Adverse Reaction (Intermediate, Verified 07/13/24 08:04) Headache Medication List - Last Reconciled 07/13/24 by Brenda Trimble RN losartan 25 mg PO DAILY simvastatin 40 mg PO DAILY sumatriptan succinate 100 mg PO PRN trazodone 50 mg PO BEDTIME PRN warfarin 5 mg See Protocol PO DAILY Nursing Note INR 1.6 out of therapeutic range Medications and supplements reviewed Patient status: Pt had some COQ10 left over and thought he would finish them off - not relizing they could lower his INR , also new MVI - explained they can affect the INR Medications or supplements: no other changes Diet: good Denies any signs and symptoms of bleeding or clotting or unusual bruising Bleeding, bruising, clotting discussed Nutritional guidance given: call if you resume any more supplements or decide to go back on COQ 10- some foods contain it like oranges cauliflower, peanuts, stawberries, chicken, broccoli .. to name a few - enc him to avoid greens x 3 days so INR can come up - to eat orange and reds to help raise the INR Dose: dose 7.5mg today then his usual 7.5mg tomorrow / 5mg all other days F/U INR Date : 07/23/24 ?? Patient verbalizing understanding of instructions given. Anti-Coag Initial Assessment Social Hx Patient Tobacco Use Status: Former Tobacco user Tobacco use type: Cigar alcohol intake: never Coding Level of Care Code Est Patient Level 1 Diagnoses Current use of anticoagulant therapy Z79.01 Assessment & Plan Assessment & Plan (1) Current use of anticoagulant therapy: Code(s): Z79.01 - custodial (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
--- OUTSIDE RECORDS SUMMARY | 2024-07-14 18:40 | XMS_ITS ---
Author Organization Jose Felder III, MD Address [address] [place] [address] Care Team Providers Care Community Association Manager Name Role Phone Jose Felder Primary Care Provider REASON FOR VISIT Message Social History Sex Assigned At : Social History Observation Description Sex Assigned At Male Encounters Encounter Location Date Provider Diagnosis Jose Felder III, MD [address] [place] [address] [place] [address] 03/15/2024 Jose Felder Plan Of Treatment Next Appt Details Provider Name:Jose Felder, 10/04/2024 02:30:00 PM, [address] [place] [address] [place], [address], Progress Notes * Jem QUINTEROSDOB:1945 ( 79 yo M)Acc No.[id number]:03/15/2024 Patient:?Paulina Jem :1945???Age:79 Y???Sex:Male Address:[place] [address] * true * Date:? Generated for Printi ng/Faxing/eTransmitting on:?07/14/2024 06:40 PM EST
--- OUTSIDE RECORDS SUMMARY | 2024-07-14 18:40 | XMS_ITS ---
Author Organization Jose Felder III, MD Address [address] [place] [address] [address] [place] [address] Care Team Providers Care Appellate Law Clerk Name Role Phone Jose Felder Primary Care Provider REASON FOR VISIT follow up Social History Sex Assigned At : Social History Observation Description Sex Assigned At Male Encounters Encounter Location Date Provider Diagnosis Jose Felder III, MD [address] [place] [address] [place] [address] 05/28/2024 Jose Felder Plan Of Treatment Next Appt Details Provider Name:Jose Felder, 10/04/2024 02:30:00 PM, [address] [place] [address] [place], [address], Progress Notes * Jem QUINTEROSDOB:1945 ( 79 yo M)Acc No.[id number]:05/28/2024 Progress Notes Patient:?ARNOLDSHILOHJem Drew Provider:?Jose Felder MD :1945???Age:79 Y???Sex:Male Darius e:05/28/2024 Address:[id number] Subjective: * Chief Complaints: * ???1. Follow up. * Medical History:? Objective: * Vitals:? Assessment: Plan: * Treatment: * Images: * The named appointment provid er may or may not be the originator of this progress note, and it is not deemed complete until electronically signed by the appointment provider. Sign off status: Pending * Provider:?Jose Felder MD Date:?05/05 Generated for Frandy mittal/Apple/Rubenitting on:?07/14/2024 06:40 PM EST
--- OUTSIDE RECORDS SUMMARY | 2024-07-14 18:40 | XMS_ITS ---
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 Name Role Phone Jose Felder Primary Care Provider [phone] Allergies Allergen (clinical drug ingredient) Drug/Non Drug Allergy documented on EMR Reaction Allergy Type Onset Date Status Seasonale Unknown Drug Allergy Active REASON FOR VISIT memory problems, History of chronic lymphocytic leukemia, History of lung cancer, Allergies, Hypertension, Headaches, Benign prostatic hypertrophy, Anticoagulated, History of depression Medications Medication SIG (Take, Route, Frequency, Duration) Notes Start Date End Date Status Losartan Potassium 25 MG as directed Ora lly Once a day Active traZODone HCl 50 MG 1 tablet Orally Once a day 01/27/2024 Active Venlafaxine HCl 50 MG 1 tablet with food Orally Once a day 04/16/2023 Active Simvastatin 40 MG TAKE 1 TABLET BY BRIANNE TH DAILY Active Warfarin Sodium 5 MG TAKE 1 TABLET BY MO UTH ONCE DAILY Active SUMAtriptan Succinate 100 MG TAKE 1 TABLET BY MOUTH EVERY DAY AT THE ONSET OF MIGRAINE; MAY REPEAT IN 2 HOURS IF SYPTOMS PERSISTS; MAX OF 2 TS/ DAY Active Imitrex 100 MG 1 tablet as needed O rally As needed Active Social History Sex Assigned At : Social History Observation Description Sex Assigned At Male Alcohol Screen Question Answer Notes Did you have a drink containing alcohol in the p ast year? No Points 0 Interpretation Negative Vital Signs Temperature 97.4 degrees Fahrenheit 06/07/20 24 Blood pressure systolic 127 mm Hg 06/07/20 24 Blood pressure diastolic 74 mm Hg 024 Heart Rate 90 /min 06/07/2024 Height 71 in 06/07/2024 Weight 197 lbs 06/07/2024 BMI 27.47 kg/m2 06/07/2024 Encounters Encounter Location Date Provider Diagnosis Jose Felder III, MD [address] [place] [address] DR [place], [place] [id number] 06/07/2024 Jose Felder 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 ; Hypertension I10 ; Overweight E66.3 ; Episodic memory loss R41.3 ; Former smoker Z87.891 and Lung cancer C34.90 Assessments Encounter Date Diagnosis (ICD Code) Assessment Notes Treat ment Notes Treatment Clinical Notes 06/07/2024 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 06/07/2024 Hypertension (ICD-10 - I10) His blood pressure is stable today. 06/07/2024 Overweight (ICD-10 - E66.3) He has gained 7 pounds. His body mass index is 27. We discussed his weight loss strategy. I recommended aggressive weight loss through regular physical activity and diet restricted in calories. 06/07/2024 Episodic memory loss (ICD-10 - R41.3) He has noted several times that he forgets why he went into a room or the names of people he knows well. He is always able to remember later on. A memory test today showed no defects and memory. No sign of dementia was found today. 06/07/2024 Former smoker (ICD-10 - Z87.891) He is highly motivated not to smoke and has a plan to prevent relapse in times of stress or illness. 06/07/2024 Lung cancer (ICD-10 - C34.90) He remains in remission with no relapse. He is no longer smoking. Plan Of Treatment Medication Medication Name Sig Start Date Stop Date Notes Losartan Potassium 25 MG as directed Orally Once a day traZODone HCl 50 MG 1 tablet Orally Once a day 01/27/2024 Venlafaxine HCl 50 MG 1 tablet with food Orally Once a day 04/16/2023 Simvastatin 40 MG TAKE 1 TABLET BY MOUTH DAILY Warfarin Sodium 5 MG TAKE 1 TABLET BY MO UTH ONCE DAILY SUMAtriptan Succinate 100 MG TAKE 1 TABL ET BY MOUTH EVERY DAY AT THE ONSET OF MIGRAINE; MAY REPEAT IN 2 HOURS IF SYPTOMS PERSISTS; MAX OF 2 TS/ DAY Imitrex 100 MG 1 tablet as needed O rally As needed Pending Test Test Name Order Date PROFILE, FASTING (COMPREHENSIVE METABOLI C) 06/07/2024 CBC w DIFF 06/07/2024 Lipid Panel 06/07/2024 Next Appt Details Follow Up: 4 months as sched uled, In three months or sooner if issues arise, Reason: annual exam review labs, To monitor memory issues Provider Name:Jose Felder, 10/04/2024 02:30:00 PM, [address] [place] [address] DR, OCHOA Kerivn, [place], [id number], Progress Notes * ALDAIR JemDOB:1945 ( 79 yo M)Acc No.[id number]:06/07/2024 Progress Notes Patient:?Jem QUINTEROS Provider:?Jose Felder MD :1945???Age:79 Y???Sex:Male Darius e:06/07/2024 Address: [facility] [id number] Subjective: * Chief Complaints: * ???Memory problemsHistory of chronic lymphocytic leukemiaHistory of lung cancerAllergiesHypertensionHeadachesBenign prostatic hypertrophyAnticoagulatedHistory of depression * HPI: ???COVID-19 Screening:?Questions?Have you experienced fever, chills, cough, sore throat, shortness of breath, difficulty breathing, muscle aches, loss of taste or smell??No ?Have you been exposed to the virus within the last 10 days??No ?Have you travelled internationally in the last 10 days??No ?Have you been exposed to COVID-19 in the past??No ???:?The patient, Jem, is a 79-year-old male who has been experiencing memory issues. He reports forgetting the names of his grandsons and often forgetting why he entered a room. He also reports having to think harder to recall certain information. These symptoms have been occurring intermittently and seem to be increasing in frequency. The patient does not report any severe symptoms such as getting lost or not knowing where he is. He does not report any physical discomfort or pain associated with these symptoms. The patient's vitals were measured and found to be normal. He also underwent a CT scan of his brain in March which showed age- related changes but no acute abnormalities. Blood Sugar Level is 98. * ROS:?General/Constitutional:?pain?only normal aches and pains.?Chills?denies.?Fatigue?admits.?Fever?denies.?ENT:?Decreased hearing?in both ears.?Respiratory:?Cough?denies.?Cardiovascular:?Chest pain with exertion?denies.?Dyspnea on exertion?denies.?Shortness of breath?denies.?Gastrointestinal:?Constipation?occasional.?Decreased appetite?denies.?Diarrhea?denies.?Heartburn?denies.?Nausea?denies.?Rectal bleeding?denies.?Vomiting?denies.?Hematology:?bruising?denies.?petechiae?denies.?Swollen glands?none have been noted.?Genitourinary:?Frequent urination?once a night.?Musculoskeletal:?Muscle aches?denies.?Painful joints?denies.?Sciatica?denies.?Weakness?denies.?Skin:?Itching?denies.?Rash?denies.?Skin lesion(s)?denies.?Neurologic:?Difficulty speaking?denies.?Dizziness?denies.?Headache?denies.?Low back pain?denies.?Psychiatric:?Depressed mood?denies.? * Medical History:? * Surgical History:?FNA superi or mediastinal mass cataract right eye 06/2018Cyst removed from his back 08/2022No history * Hospitalization/Major Diagno stic Procedure:?No history * Family History:?Father: dece ased 92 yrs, diagnosed with DM, Hyperlipidemia.?Children: alive.?Son(s): alive.?Siblings: .?4 brother(s) , 1 sister(s) . 2 son(s) , 1 daughter(s) - healthy. .? His father in of a hematological malignancy. His mother is 88 and well. He has three healthy children. A son has type I diabeties. Two brothers have type II diabeties. Brother passed from Pneumonia. The patient's mother had dementia and lived to be 103. his brother from lobe dementia three years ago. 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 The patient is retired and does not mention any smoking, drinking, or drug use habits. He does not mention his diet, exercise habits, work environment, or living situation. * Medications:?TakingImitrex 1 00 MG Tablet 1 tablet as needed Orally As needed Losartan Potassium 25 MG Tablet as directed Orally Once a day Warfarin Sodium 5 MG Tablet TAKE 1 TABLET BY MOUTH ONCE DAILY Simvastatin 40 MG Tablet TAKE 1 TABLET BY MOUTH DAILY Medication List reviewed and reconciled with the patientTaking Imitrex 100 MG Tablet 1 tablet as needed Orally As needed Taking Losartan Potassium 25 MG Tablet as directed Orally Once a day Taking Warfarin Sodium 5 MG Tablet TAKE 1 TABLET BY MOUTH ONCE DAILY Taking Simvastatin 40 MG Tablet TAKE 1 TABLET BY MOUTH DAILY Medication List reviewed and reconciled with the patient * Allergies:?Seasonaleno[Aller gies Verified] Objective: * Vitals:?Ht: 71, Wt:197, BMI: 27.47, BP:127/74, HR:90, Temp:97.4, Wt-k.36. * ???Past Orders: ???Imaging:CT head/brain wo con (Order Date - 03/15/2024) (Performed Date - 03/15/2024) * Examination: ???General Examination: ?GENERAL APPEARANCE:?pleasant, well nourished, well developed, in no acute distress, calm and relaxed, overweight, man.?HEAD:?atraumatic, normocephalic.?EYES:?eomi, perrla, anicteric, conjugate.?EARS:?normal.?NOSE:?septum intact.?ORAL CAVITY:?normal, unremarkable.?NECK/THYROID:?no jugular venous distention, no carotid bruit, thyroid normal, Scar base right neck stable.?LYMPH NODES:?no enlarged lymph nodes,spleen normal.?SKIN:?no suspicious lesions, anicteric.?HEART:?no clicks, gallops, murmurs, or rubs, regular rhythm, S1, S2 normal, no s3, or vascular bruits.?LUNGS:?clear to auscultation .?BREASTS:??no masses palpable bilaterally.?ABDOMEN:?bowel sounds normal, no ascites, no organomegaly, no mass, overweight.?RECTAL EXAM:?not examined.?MUSCULOSKELETAL:?extremities unremarkable, no clubbing, cyanosis or edema.?PERIPHERAL PULSES:?normal.?NEUROLOGIC:?alert and oriented, cranial nerves 2-12 grossly intact, deep tendon reflexes 2+ symmetrical, motor strength normal upper and lower extremities, sensory exam intact.?PSYCH:?alert, oriented.? : ???CT scan of brain:Age-related changes, no acute abnormalities. Blood work: Normal results. Urine: Normal. Memory test: Functional. Hearing: Good with hearing aid. ??? Assessment: * Assessment: 1.?Hypertension - I10 (Prima ry)???Notes :His blood pressure is stable today.???2.?Chronic lymphoid leukemia - C91.10???Notes :This diagnosis remains in remission since he finished his chemotherapy.???3.?Overweight - E66.3???Notes :He has gained 7 pounds.? His body mass index is 27.? We discussed his weight loss strategy.? I recommended aggressive weight loss through regular physical activity and diet restricted in calories.???4.?Episodic memory loss - R41.3???Notes :He has noted several times that he forgets why he went into a room or the names of people he knows well.? He is always able to remember later on.? A memory test today showed no defects and memory.? No sign of dementia was found today.???5.?Former smoker - Z87.891???Notes :He is highly motivated not to smoke and has a plan to prevent relapse in times of stress or illness.???6.?Lung cancer - C34.90???Notes :He remains in remission with no relapse. He is no longer smoking.??? Plan: * Treatment: 2.?Chronic lymphoid leukemia ? Continue Imitrex Tablet, 100 MG, 1 tablet as needed, Orally, As needed;?Continue SUMAtriptan Succinate Tablet, 100 MG, TAKE 1 TABLET BY MOUTH EVERY DAY AT THE ONSET OF MIGRAINE; MAY REPEAT IN 2 HOURS IF SYPTOMS PERSISTS; MAX OF 2 TS/ DAY;?Continue Losartan Potassium Tablet, 25 MG, as directed, Orally, Once a day;?Continue Warfarin Sodium Tablet, 5 MG, TAKE 1 TABLET BY MOUTH ONCE DAILY;?Continue Simvastatin Tablet, 40 MG, TAKE 1 TABLET BY MOUTH DAILY;?Continue Venlafaxine HCl Tablet, 50 MG, 1 tablet with food, Orally, Once a day;?Continue traZODone HCl Tablet, 50 MG, 1 tablet, Orally, Once a day.?LAB: PROFILE, FASTING (COMPREHENSIVE METABOLIC) ?LAB: CBC w DIFF ?LAB: Lipid Panel 3.?Overweight?LAB: PROFILE, FASTING (COMPREHENSIVE METABOLIC) ?LAB: CBC w DIFF ?LAB: Lipid Panel * Procedure Codes:? * Preventive Medicine:? ??Counseling:?Care goal follow-up plan:?Counseling for abnormal BMI given?Yes ?Above Normal BMI Follow-up?Dietary management education, guidance, and counseling, Dietary needs education ?Smoking/Tobacco Use?Patient counseled on the dangers of tobacco use and urged to quit.?06/07/2024 * Follow Up:?4 months as sched uled, In three months or sooner if issues arise (Reason: annual exam review labs, To monitor memory issues) * Images: * Sign off status: Completed true * Provider:?Jose Felder MD Date:?11/2023 Generated for Frandy mittal/Apple/eTransmitting on:?07/14/2024 06:40 PM EST History and Physical Notes * HPI (History of Present Illness) Category Sub-Category Detail Notes COVID-19 Screening Questions Have you had any new onset fever, chills, cough, congestion, sore throat, shortness of breath, muscle aches?: No Have you been exposed to the virus withi n the last 10 days?: No Have you travelled internationally in last 10 days?: No Have you been exposed to COVID-19 in the past?: No Examination Category Sub-Category Detail Notes General Examination GENERAL APPEARANCE: pleasant , well nourished, well developed, in no acute distress, calm and relaxed, overweight, man HEAD: atraumatic, normocep halic EYES: eomi, perrla, anicte mike, conjugate EARS: normal NOSE: septum intact NECK/THYROID: no jugular venous di stention, no carotid bruit, thyroid normal, Scar base right neck stable HEART: no clicks, gallops, murmurs, or rubs, regular rhythm, S1, S2 normal, no s3, or vascular bruits LUNGS: clear to auscultatio n ABDOMEN: bowel sounds normal, no ascites, no organomegaly, no mass, overweight NEUROLOGIC: alert and oriented, cranial nerves 2-12 grossly intact, deep tendon reflexes 2+ symmetrical, motor strength normal upper and lower extremities, sensory exam intact SKIN: no suspicious lesion s, anicteric PERIPHERAL PULSES: normal BREASTS: no masses palpable b ilaterally MUSCULOSKELETAL: extremities unremark able, no clubbing, cyanosis or edema LYMPH NODES: no enlarged lymph no cristi,spleen normal RECTAL EXAM: not examined PSYCH: alert, oriented ORAL CAVITY: normal, unremarkable
--- OUTSIDE RECORDS SUMMARY | 2024-07-14 18:41 | XMS_ITS | Patient Health Record ---
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 Lab:[address] [address] Notes/Report: PT, INR - [facility] 2.0 0.9-1.1 METER #: [id number] INTERNATIONAL NORMALIZED RATIO (INR) REFERENCE RANGES Reference Range For patients not on anticoagulant therapy: 0.9 - 1.1 INR ranges for oral anticoagulant therapy: For prevention and treatment of venous thrombosis and pulmonary embolism: 2.0 - 3.0 For acute myocardial infarction with aspirin therapy: 2.0 - 3.0 For acute myocardial infarction without aspirin therapy: 3.0 - 4.0 For patients with mechanical prosthetic heart valves: 2.5 - 3.5 Prothrombin Time Whole Bld P OC Reviewed date:06/15/2024 08:32:55 AM Interpretation: Performing Lab:[facility], [address] [place] [phone] Notes/Report: Prothrombin Time Whole Bld POC 24.4 11.1-13.5 sec INR WHOLE BLOOD POC (Not yet reviewed by provider) Interpretation: Performing Lab:[address] [address] Notes/Report: PT, INR - [facility] 1.6 0.9-1.1 METER #: [id number] INTERNATIONAL NORMALIZED RATIO (INR) REFERENCE RANGES Reference Range For patients not on anticoagulant therapy: 0.9 - 1.1 INR ranges for oral anticoagulant therapy: For prevention and treatment of venous thrombosis and pulmonary embolism: 2.0 - 3.0 For acute myocardial infarction with aspirin therapy: 2.0 - 3.0 For acute myocardial infarction without aspirin therapy: 3.0 - 4.0 For patients with mechanical prosthetic heart valves: 2.5 - 3.5 Prothrombin Time Whole Bld P OC (Not yet reviewed by provider) Interpretation: Performing Lab:[facility], [address] [place] [phone] Notes/Report: Prothrombin Time Whole Bld POC 19.4 11.1-13.5 sec Reason For Referral No Information Medications Medication SIG (Take, Route, Frequency, Duration) Notes Start Date End Date Status SUMAtriptan Succinate 100 MG TAKE 1 TABLET BY MOUTH EVERY DAY AT THE ONSET OF MIGRAINE; MAY REPEAT IN 2 HOURS IF SYPTOMS PERSISTS; MAX OF 2 TS/ DAY Active Imitrex 100 MG 1 tablet as needed O rally As needed Active Losartan Potassium 25 MG as directed Ora lly Once a day Active traZODone HCl 50 MG 1 tablet Orally Once a day 01/27/2024 Active Venlafaxine HCl 50 MG 1 tablet with food Orally Once a day 04/16/2023 Active Simvastatin 40 MG TAKE 1 TABLET BY BRIANNE TH DAILY Active Warfarin Sodium 5 MG TAKE 1 TABLET BY MO UTH ONCE DAILY Active Immunizations Vaccine Route Administration Date Status Comme nts Influenza, quad IM Intramuscular 05/28/2022 Administered Influenza, quad IM Intramuscular 05/13/2023 Administered PCV13 Unknown 11/21/2014 Administered SHINGRIX Unknown 05/31/2022 Administered COVID 19 Moderna Unknown 09/07/2020 Administered COVID 19 Moderna Unknown 07/13/2021 Administered COVID Moderna Bivalent Unknown 05/31/2022 Administered PPV 23 Unknown 02/27/2017 Administered Tdap Unknown 01/30/2017 Administered COVID 19 Moderna Unknown 10/05/2020 Administered COMIRNATY Pfizer-BioNTech Unknown 05/31/2023 Administer ed Social History Sex Assigned At : Social History Observation Description Sex Assigned At Male Alcohol Screen Question Answer Notes Did you have a drink containing alcohol in the p ast year? No Points 0 Interpretation Negative Problems Problem Type SNOMED Code ICD Code Onset Dates Problem Status W/U Status Risk Notes Problem 8938666 Former smoker (Z87.891) Active confirmed He is highly motivated not to smoke and has a plan to prevent relapse in times of stress or illness. Problem 103684710 Overweight (BMI 25.0-29.9) (E66.3) Active confirmed Heis slightly overweight.We discussed diet and nutrition. Problem 790840465 Overweight (E66.3) Active confirmed He has gained 7 pounds. His body mass index is 27. We discussed his weight loss strategy. I recommended aggressive weight loss through regular physical activity and diet restricted in calories. Problem 01411258 Hypertension (I10) Active confirmed His blood pressure is stable today. Problem 94390539 Other chronic pain (G89.29) Active confirmed Problem 590277212 Solitary pulmonary nodule (R91.1) Active confirmed Problem 108439515 Environmental allergies (Z91.09) Active confirmed He has noted itching around his eyes and nasal congestion. He is using zlsq-rqx-uukzm er medication. I recommended fluticasone and loratadine. 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 Problem 189719390 DVT (deep venous thrombosis) (I82.409) Active confirmed He has had no blood clots. Problem 467463515 Lung cancer (C34.90) Active confirmed He remains in remission with no relapse. He is no longer smoking. Problem 8854547 Protein S deficiency (D68.59) Active confirmed He is doing well with his chronic anticoagulatio n. The protein S deficiency is no indication for lifelong therapy. Problem 42855001 Other depression (F32.89) Active confirmed His medication was increased to 100 mg daily. A follow-up visit was arranged. He has no suicidal ideation and is beginning to experience improvement. Problem 778214825 Benign prostatic hyperplasia, unspecified whether lower urinary tract symptoms present (N40.0) Active confirmed He arises from sleep once or twice a night to urinate. He will employ lives modification to prevent nocturia. Problem 77453914 Chronic nonintractable headache, unspecified headache type (R51) Active confirmed His headaches are improved. They're less frequent. He will continue on current therapy. Vital Signs Heart Rate 90 /min 06/07/2024 Temperature 97.4 degrees Fahrenheit 06/07/2024 Blood pressure diastolic 74 mm Hg 06/07/2024 Height 71 in 06/07/2024 Blood pressure systolic 127 mm Hg 06/07/2024 Weight 197 lbs 06/07/2024 BMI 27.47 kg/m2 06/07/2024 Encounters Encounter Location Date Provider Diagnosis Jose Felder III, MD [address] [place] [address] [address] [place] [address] 09/30/2023 Jose Felder 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 ; Lung cancer C34.90 ; Hypertension I10 ; Benign prostatic hyperplasia, unspecified whether lower urinary tract symptoms present N40.0 ; Former smoker Z87.891 ; Environmental allergies Z91.09 ; 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 and Overweight E66.3 Jose Felder III, MD [address] [place] [address] [address] [place] [address] 01/07/2024 Jose Felder 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 ; Former smoker Z87.891 ; Lung cancer C34.90 ; Hypertension I10 ; 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 ; Environmental allergies Z91.09 ; 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 ; DVT (deep venous thrombosis) I82.409 and Overweight (BMI 25.0-29.9) E66.3 Jose Felder III, MD [address] [place] [address] [address] [place] [address] 01/27/2024 Jose Felder 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 ; Overweight (BMI 25.0-29.9) E66.3 ; Benign prostatic hyperplasia, unspecified whether lower urinary tract symptoms present N40.0 ; Former smoker Z87.891 ; Lung cancer C34.90 and Environmental allergies Z91.09 Jose Felder III, MD [address] [place] [address] [place] [address] 06/07/2024 Jose Felder 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 ; Hypertension I10 ; Overweight E66.3 ; Episodic memory loss R41.3 ; Former smoker Z87.891 and Lung cancer C34.90 Jose Felder III, MD [address] [place] [address] [address] [place] [address] 10/22/2023 Jose Felder III, MD [address] [place] [address] [address] [place] [address] 03/15/2024 Jose Felder Assessments Encounter Date Diagnosis (ICD Code) Assessment Notes Treat ment Notes Treatment Clinical Notes 09/30/2023 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 09/30/2023 Lung cancer (ICD-10 - C34.90) He remains in remission with no relapse. He is no longer smoking. 01/07/2024 Former smoker (ICD-10 - Z87.891) He is highly motivated not to smoke and has a plan to prevent relapse in times of stress or illness. 01/07/2024 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 01/27/2024 Overweight (BMI 25.0-29.9) (ICD-10 - E66.3) Heis slightly overweight.We discussed diet and nutrition. 01/27/2024 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 06/07/2024 Hypertension (ICD-10 - I10) His blood pressure is stable today. 06/07/2024 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 09/30/2023 Hypertension (ICD-10 - I10) His blood pressure is stable and controlled. He was continued on his current regimen. I advised aggressive weight loss and sodium restriction. 01/07/2024 Lung cancer (ICD-10 - C34.90) He remains in remission with no relapse. He is no longer smoking. 01/27/2024 Benign prostatic hyperplasia, unspecified whether lower urinary tract symptoms present (ICD-10 - N40.0) He arises from sleep once or twice a night to urinate. He will employ lives modification to prevent nocturia. 06/07/2024 Overweight (ICD-10 - E66.3) He has gained 7 pounds. His body mass index is 27. We discussed his weight loss strategy. I recommended aggressive weight loss through regular physical activity and diet restricted in calories. 09/30/2023 Benign prostatic hyperplasia, unspecified whether lower urinary tract symptoms present (ICD-10 - N40.0) He rises from sleep twice a night to urinate. I recommended aggressive lifestyle modification as a way to control nocturia. 01/07/2024 Hypertension (ICD-10 - I10) His blood pressure is stable and controlled. His last value was 138/82. He was continued on his current regimen. I advised aggressive weight loss and sodium restriction. 01/27/2024 Former smoker (ICD-10 - Z87.891) He is highly motivated not to smoke and has a plan to prevent relapse in times of stress or illness. 06/07/2024 Episodic memory loss (ICD-10 - R41.3) He has noted several times that he forgets why he went into a room or the names of people he knows well. He is always able to remember later on. A memory test today showed no defects and memory. No sign of dementia was found today. 09/30/2023 Former smoker (ICD-10 - Z87.891) He is highly motivated not to smoke and has a plan to prevent relapse in times of stress or illness. 01/07/2024 Diabetes mellitus type 2 in nonobese (ICD-10 - E11.9) His diabetes is well controlled with current medication. No changes. Regimen was needed today. 01/27/2024 Lung cancer (ICD-10 - C34.90) He remains in remission with no relapse. He is no longer smoking. 06/07/2024 Former smoker (ICD-10 - Z87.891) He is highly motivated not to smoke and has a plan to prevent relapse in times of stress or illness. 09/30/2023 Environmental allergies (ICD-10 - Z91.09) He has noted itching around his eyes and nasal congestion. He is using gqet-sbl-ugqoadk medication. I recommended fluticasone and loratadine. 01/07/2024 Environmental allergies (ICD-10 - Z91.09) He has noted itching around his eyes and nasal congestion. He is using dpsi-fmp-rszigex medication. I recommended fluticasone and loratadine. 01/27/2024 Environmental allergies (ICD-10 - Z91.09) He has noted itching around his eyes and nasal congestion. He is using vonh-oct-obgtitv medication. I recommended fluticasone and loratadine. 06/07/2024 Lung cancer (ICD-10 - C34.90) He remains in remission with no relapse. He is no longer smoking. 09/30/2023 Protein S deficiency (ICD-10 - D68.59) He is doing well with his chronic anticoagulation. The protein S deficiency is no indication for lifelong therapy. 01/07/2024 Protein S deficiency (ICD-10 - D68.59) He is doing well with his chronic anticoagulation. The protein S deficiency is no indication for lifelong therapy. 09/30/2023 Overweight (ICD-10 - E66.3) His body mass index is 27. We discussed diet and nutrition. We made a plan to lose weight at a rate of 1/2 pound per week. 01/07/2024 DVT (deep venous thrombosis) (ICD-10 - I82.409) He has had no blood clots. 01/07/2024 Overweight (BMI 25.0-29.9) (ICD-10 - E66.3) We have reviewed the elements of his weight loss strategy and diabetic diet. We have discussed nutrition today. He will try to avoid weight gain during the winter holidays and then lose weight in the spring. Plan Of Treatment Pending Test Test Name Order Date PROFILE, FASTING (COMPREHENSIVE METABOLI C) 06/18/2023 PROFILE, FASTING (COMPREHENSIVE METABOLI C) 06/07/2024 PROFILE, FASTING (COMPREHENSIVE METABOLI C) 02/26/2021 PROFILE, FASTING (COMPREHENSIVE METABOLI C) 12/09/2022 PROFILE, FASTING (COMPREHENSIVE METABOLI C) 11/18/2019 PROFILE, FASTING (COMPREHENSIVE METABOLI C) 01/27/2024 PROFILE, FASTING (COMPREHENSIVE METABOLI C) 09/30/2023 PROFILE, FASTING (COMPREHENSIVE METABOLI C) 11/09/2021 PROFILE, FASTING (COMPREHENSIVE METABOLI C) 01/25/2020 PROFILE, FASTING (COMPREHENSIVE METABOLI C) 07/11/2021 PROFILE, FASTING (COMPREHENSIVE METABOLI C) 06/19/2022 PROFILE, RANDOM (COMPREHENSIVE METABOLIC ) 10/14/2018 PROFILE, RANDOM (COMPREHENSIVE METABOLIC ) 05/08/2017 PROFILE, RANDOM (COMPREHENSIVE METABOLIC ) 10/30/2020 PROFILE, RANDOM (COMPREHENSIVE METABOLIC ) 08/12/2022 PROFILE, RANDOM (COMPREHENSIVE METABOLIC ) 08/19/2019 PROFILE, RANDOM (COMPREHENSIVE METABOLIC ) 07/06/2018 HEMOGLOBIN A1C (GLYCOHEMOGLOBIN) 020 AMYLASE 03/26/2022 LIPASE 03/26/2022 LIPID PANEL 06/19/2022 LIPID PANEL 01/25/2020 LIPID PANEL 02/26/2021 LIPID PANEL 12/09/2022 LIPID PANEL 11/18/2019 LIPID PANEL 10/30/2020 LIPID PANEL 11/09/2021 LIPID PANEL 08/12/2022 LIPID PANEL 08/19/2019 PSA, TOTAL 07/11/2021 PSA, TOTAL 06/19/2022 PSA, TOTAL 01/27/2024 PSA, TOTAL 12/09/2022 PSA, TOTAL 09/30/2023 PSA, TOTAL+FREE 02/26/2021 CBC w DIFF 11/09/2021 CBC w DIFF 08/12/2022 CBC w DIFF 08/19/2019 CBC w DIFF 07/06/2018 CBC w DIFF 07/11/2021 CBC w DIFF 06/07/2024 CBC w DIFF 01/25/2020 CBC w DIFF 06/19/2022 CBC w DIFF 10/14/2018 CBC w DIFF 03/26/2022 CBC w DIFF 05/08/2017 CBC w DIFF 11/18/2019 CBC w DIFF 02/26/2021 CBC w DIFF 11/21/2017 CBC w DIFF 12/09/2022 CBC w DIFF 10/30/2020 CBC w DIFF 09/30/2023 SED RATE (ESR) 03/26/2022 CBC WITH AUTO DIFF 06/18/2023 CBC WITH AUTO DIFF 01/27/2024 Lipid Panel 09/30/2023 Lipid Panel 06/18/2023 Lipid Panel 07/11/2021 Lipid Panel 06/07/2024 Lipid Panel 01/27/2024 INR WHOLE BLOOD POC 07/13/2024 Prothrombin Time Whole Bld POC Next Appt Details Provider Name:Jose Felder, 10/04/2024 02:30:00 PM, [address] [place] [address] [address], [place], [address], Insurance Providers Payer Name Payer Address Payer Phone Subscriber Number Group Number Insured Name Patient Relationship to Insured Coverage Start Date Coverage End Date [facility] [address] [place], [place] [id number] Jem Gallardo Self - patient is the insured Medical (General) History Medical History History ICD Code migraine headaches allergies hypertension anal fissure staphylococcal infection 1999 chronic lymphocytic leukemia in remissio n lung cancer, non-small cell obesity former smoker dvt february 2015 right leg protein S deficiency The patient had a CT scan of his brain in March. He has been experiencing memory issues. He is taking Trazodone for anxiety and depression. 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
== END 2024-07-13 08:24 | disposition home or self-care (01) ==
LOC: HO.ACS 07:57
PROVIDERS: PCP Internal Medicine Medical Oncology; Visit Provider Internal Medicine
DX: Z79.01 Long term (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 (principal)

== ENCOUNTER → 2024-07-13 07:57 | Outpatient (BNVA) | payer MEDICARE, SELFPAY | PROVIDERS: PCP Internal Medicine Medical Oncology; Visit Provider Internal Medicine | DX: Z86.718 Personal history of other venous thrombosis and embolism (principal); Z79.01 Long term (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; Z51.81 Encounter for therapeutic drug level monitoring | CPT/HCPCS: 85610; 99211 ==

== ENCOUNTER 2024-07-23 08:21 | Outpatient (AMB) | payer MEDICARE, SELFPAY ==
--- OUTSIDE RECORDS SUMMARY | 2024-07-23 08:22 | XMS_ITS ---
Author Organization Jose Felder III, MD Address [address] [place] [address] [address] [place] [address] Care Team Providers Care Cake Knocker Name Role Phone Jose Felder Primary Care Provider REASON FOR VISIT follow up Social History Sex Assigned At : Social History Observation Description Sex Assigned At Male Encounters Encounter Location Date Provider Diagnosis Jose Felder III, MD [address] [place] [address] [place] [address] 05/28/2024 Jose Felder Plan Of Treatment Next Appt Details Provider Name:Jose Felder, 10/04/2024 02:30:00 PM, [address] [place] [address] [place], [address], Progress Notes * Jem QUINTEROSDOB:1945 ( 79 yo M)Acc No.[id number]:05/28/2024 Progress Notes Patient:?ARNOLDSHILOHJem Drew Provider:?Jose Felder MD [...] Felder MD Date:?05/05 Generated for Frandy mittal/Apple/Rubenitting on:?07/23/2024 08:22 AM EST
--- OUTSIDE RECORDS SUMMARY | 2024-07-23 08:22 | XMS_ITS ---
Author Organization Jose Felder III, MD Address [address] [place] [address] Care Team Providers Care Per Diem Physical Therapist Assistant Name Role Phone Jose Felder Primary Care Provider [phone] REASON FOR VISIT Message Social History Sex Assigned At : Social History Observation Description Sex Assigned At Male Encounters Encounter Location Date Provider Diagnosis Jose Felder III, MD [address] [place] [address] [place] [address] 03/15/2024 Jose Felder Plan Of Treatment Next Appt Details Provider Name:Jose Felder, 10/04/2024 02:30:00 PM, [address] [place] [address] [place], [address], Progress Notes * Jem QUINTEROSDOB:1945 ( 79 yo M)Acc No.[id number]:03/15/2024 Patient:?Jem Quinteros :1945???Age:79 Y???Sex:Male Address:[place] [address] * true * Date:? Generated for Printi ng/Faxing/eTransmitting on:?07/23/2024 08:22 AM EST
--- OUTSIDE RECORDS SUMMARY | 2024-07-23 08:23 | XMS_ITS | Patient Health Record ---
Author Organization Jose Felder III, MD Address [address] [place] [address] DR PACKER Kervin LYNCHCESIATRISTA CALEB [address] Care Team Providers Care Information Scientist Name Role Phone Jose Felder Primary Care [...] POC Reviewed date:08/02/2023 07:30:18 AM Interpretation: Performing Lab:[facility], [address] [place] [phone] Notes/Report: PT, INR - Anti Coag Clinic 2.3 0.9-1.1 METER #: [id number] INTERNATIONAL NORMALIZED RATIO (INR) REFERENCE RANGES Reference [...] OC Reviewed date:08/02/2023 07:30:18 AM Interpretation: Performing Lab:[facility], [address] [place] [phone] Notes/Report: Prothrombin Time Whole Bld POC 27.2 11.1-13.5 sec INR WHOLE BLOOD POC Reviewed date:08/28/2023 06:13:13 PM Interpretation: Performing Lab:[facility], [address] [place] [phone] Notes/Report: PT, INR - Anti Coag Clinic 2.2 0.9-1.1 METER #: [id number] INTERNATIONAL NORMALIZED RATIO (INR) REFERENCE RANGES Reference [...] OC Reviewed date:08/28/2023 06:13:13 PM Interpretation: Performing Lab:[facility], [address] [place] [phone] Notes/Report: Prothrombin Time Whole Bld POC 26.4 11.1-13.5 sec INR WHOLE BLOOD POC Reviewed date:09/30/2023 02:44:40 PM Interpretation: Performing Lab:[facility], [address] [place] [phone] Notes/Report: PT, INR - Anti Coag Clinic 2.3 0.9-1.1 METER #: [id number] INTERNATIONAL NORMALIZED RATIO (INR) REFERENCE RANGES Reference [...] OC Reviewed date:09/30/2023 02:44:40 PM Interpretation: Performing Lab:[facility], [address] [place] [phone] Notes/Report: Prothrombin Time Whole Bld POC 27.1 11.1-13.5 sec Complete Blood Count Auto Di ff Reviewed date:09/30/2023 02:44:40 PM Interpretation: Performing Lab:[facility], [address] [place] [phone] Notes/Report: White Blood Count 10.0 4.8-10.8 X10*3/uL [...] NRBC Abs Auto 0.000 0.0-0.012 X10*3/uL Comprehensive [place]. Panel Fa st Reviewed date:09/30/2023 02:44:40 PM Interpretation: Performing Lab:[facility], [address] [place] [phone] Notes/Report: Sodium 141 135-145 mmol/L Potassium 3.9 3.3-5.1 mmol/L Chloride 107 96-108 mmol/L Carbon Dioxide 27 22-29 mmol/L Anion Gap 11 12-20 Blood Urea Nitrogen 18 9-16 mg/dL Creatinine 0.73 0.5-1.4 mg/dL Estimated Glomerular Filt Rate > 60 NOTE: For -[place] Citizen individuals, multiply the result by 1.210. Chronic [...] Panel Reviewed date:09/30/2023 02:44:40 PM Interpretation: Performing Lab:[facility], [address] [place] [phone] Notes/Report: Triglycerides 97 <150 mg/dL Desirable Triglyceride: [...] POC Reviewed date:10/25/2023 03:39:32 PM Interpretation: Performing Lab:[facility], [address] [place] [phone] Notes/Report: PT, INR - Anti Coag Clinic 2.0 0.9-1.1 METER #: [id number] INTERNATIONAL NORMALIZED RATIO (INR) REFERENCE RANGES Reference [...] OC Reviewed date:10/25/2023 03:39:32 PM Interpretation: Performing Lab:[facility], [address] [place] [phone] Notes/Report: Prothrombin Time Whole Bld POC 24.5 11.1-13.5 sec INR WHOLE BLOOD POC Reviewed date:11/21/2023 01:41:43 PM Interpretation: Performing Lab:[facility], [address] [place] [phone] Notes/Report: PT, INR - Anti Coag Clinic 2.5 0.9-1.1 METER #: [id number] INTERNATIONAL NORMALIZED RATIO (INR) REFERENCE RANGES Reference [...] OC Reviewed date:11/21/2023 01:41:43 PM Interpretation: Performing Lab:[facility], [address] [place] [phone] Notes/Report: Prothrombin Time Whole Bld POC 30.5 11.1-13.5 sec INR WHOLE BLOOD POC Reviewed date:12/17/2023 09:46:09 AM Interpretation: Performing Lab:[facility], [address] [place] [phone] Notes/Report: PT, INR - Anti Coag Clinic 2.3 0.9-1.1 METER #: [id number] INTERNATIONAL NORMALIZED RATIO (INR) REFERENCE RANGES Reference [...] OC Reviewed date:12/17/2023 09:46:09 AM Interpretation: Performing Lab:[facility], [address] [place] [phone] Notes/Report: Prothrombin Time Whole Bld POC 27.3 11.1-13.5 sec INR WHOLE BLOOD POC Reviewed date:01/24/2024 05:54:24 PM Interpretation: Performing Lab:[facility], [address] [place] [phone] Notes/Report: PT, INR - Anti Coag Clinic 3.3 0.9-1.1 METER #: [id number] INTERNATIONAL NORMALIZED RATIO (INR) REFERENCE RANGES Reference [...] OC Reviewed date:01/24/2024 05:54:24 PM Interpretation: Performing Lab:[facility], [address] [place] [phone] Notes/Report: Prothrombin Time Whole Bld POC 39.9 11.1-13.5 sec Complete Blood Count Auto Di ff Reviewed date:02/10/2024 12:49:39 PM Interpretation: Performing Lab:[facility], [address] [place] [phone] Notes/Report: White Blood Count 9.1 4.8-10.8 X10*3/uL [...] NRBC Abs Auto 0.000 0.0-0.012 X10*3/uL Comprehensive [place]. Panel Fa st Reviewed date:02/10/2024 12:49:39 PM Interpretation: Performing Lab:[facility], [address] [place] [phone] Notes/Report: Sodium 142 135-145 mmol/L Potassium 4.3 3.3-5.1 mmol/L Chloride 109 96-108 mmol/L Carbon Dioxide 26 22-29 mmol/L Anion Gap 11 12-20 Blood Urea Nitrogen 23 9-16 mg/dL Creatinine 0.76 0.5-1.4 mg/dL Estimated Glomerular Filt Rate > 60 NOTE: For -[place] Citizen individuals, multiply the result by 1.210. Chronic [...] Panel Reviewed date:02/10/2024 12:49:39 PM Interpretation: Performing Lab:[address] [phone] Notes/Report: Triglycerides 59 <150 mg/dL Desirable Triglyceride: [...] Antigen Reviewed date:02/10/2024 12:49:39 PM Interpretation: Performing Lab:[facility], [address] [place] [phone] Notes/Report: Prostate Specific Antigen 1.37 <0.05-4.0 ng/mL PSA methodology: Sheets Alinity i Chemiluminescent Microparticle Immunoassay (CMIA) INR WHOLE BLOOD POC Reviewed date:02/10/2024 12:49:39 PM Interpretation: Performing Lab:[facility], [address] [place] [phone] Notes/Report: PT, INR - Anti Coag Clinic 1.9 0.9-1.1 METER #: [id number] INTERNATIONAL NORMALIZED RATIO (INR) REFERENCE RANGES Reference [...] OC Reviewed date:02/10/2024 12:49:39 PM Interpretation: Performing Lab:[facility], [address] [place] [phone] Notes/Report: Prothrombin Time Whole Bld POC 22.3 11.1-13.5 sec INR WHOLE BLOOD POC Reviewed date:03/21/2024 06:44:39 AM Interpretation: Performing Lab:[facility], [address] [place] [phone] Notes/Report: PT, INR - Anti Coag Clinic 1.7 0.9-1.1 METER #: [id number] INTERNATIONAL NORMALIZED RATIO (INR) REFERENCE RANGES Reference [...] OC Reviewed date:03/21/2024 06:44:39 AM Interpretation: Performing Lab:[facility], [address] [place] [phone] Notes/Report: Prothrombin Time Whole Bld POC 20.4 11.1-13.[address] head/brain wo con Reviewed date:03/21/2024 06:44:39 AM Interpretation: Performing Lab: Notes/Report: [address] [address] [address] Scan Report Signed Patient: Jem Gallardo MR#: [id number] [birth year] : 1945 Acct:[id number] Age/Sex: 79 / M ADM Date: 03/15/24 Loc: HO.ED Attending Dr: Ordering Physician: Lynne Fields Date of Service: 03/15/24 Procedure(s): CT head/brain wo IV con Accession Number(s): [id number] cc: Jose Felder MD; Lynne Fields EXAMINATION: [...] in OV> 03/15/24 1601 DD/ 1227 TD/TT: Shell Trim Operator: [address] [address] [address] Scan Report Signed Patient: Jem Gallardo MR#: [id number] 3 : 1945 Acct:[id number] Age/Sex: 79 / M ADM Date: 03/15/24 Loc: HO.ED Attending Dr: Ordering Physician: Lynne Fields Date of Service: 03/15/24 Procedure(s): CT head/brain wo IV con Accession Number(s): [id number] cc: Jose Felder MD; Lynne Fields EXAMINATION: [...] in OV> 03/15/24 1601 DD/ 1227 TD/TT: Shell Trim Operator: INR WHOLE BLOOD POC Reviewed date:03/25/2024 08:29:44 PM Interpretation: Performing Lab:[facility], [address] [place] [phone] Notes/Report: PT, INR - Anti Coag Clinic 2.1 0.9-1.1 METER #: [id number] INTERNATIONAL NORMALIZED RATIO (INR) REFERENCE RANGES Reference [...] OC Reviewed date:03/25/2024 08:29:44 PM Interpretation: Performing Lab:[facility], [address] [place] [phone] Notes/Report: Prothrombin Time Whole Bld POC 25.8 11.1-13.5 sec INR WHOLE BLOOD POC Reviewed date:04/21/2024 06:39:37 AM Interpretation: Performing Lab:[facility], [address] [place] [phone] Notes/Report: PT, INR - Anti Coag Clinic 1.9 0.9-1.1 METER #: [id number] INTERNATIONAL NORMALIZED RATIO (INR) REFERENCE RANGES Reference [...] OC Reviewed date:04/21/2024 06:39:38 AM Interpretation: Performing Lab:[facility], [address] [place] [phone] Notes/Report: Prothrombin Time Whole Bld POC 22.2 11.1-13.5 sec INR WHOLE BLOOD POC Reviewed date:05/18/2024 11:38:32 AM Interpretation: Performing Lab:[facility], [address] [place] [phone] Notes/Report: PT, INR - Anti Coag Clinic 2.1 0.9-1.1 METER #: [id number] INTERNATIONAL NORMALIZED RATIO (INR) REFERENCE RANGES Reference [...] OC Reviewed date:05/18/2024 11:38:32 AM Interpretation: Performing Lab:[facility], [address] [place] [phone] Notes/Report: Prothrombin Time Whole Bld POC 25.7 11.1-13.5 sec Complete Blood Count Auto Di ff Reviewed date:06/07/2024 11:48:38 AM Interpretation: Performing Lab:[facility], [address] [place] [phone] Notes/Report: White Blood Count 9.5 4.8-10.8 X10*3/uL [...] NRBC Abs Auto 0.000 0.0-0.012 X10*3/uL Comprehensive [place]. Panel Fa st Reviewed date:06/07/2024 11:48:38 AM Interpretation: Performing Lab:[facility], [address] [place] [phone] Notes/Report: Sodium 144 135-145 mmol/L Potassium 4.7 3.3-5.1 mmol/L Chloride 108 96-108 mmol/L Carbon Dioxide 27 22-29 mmol/L Anion Gap 14 12-20 Blood Urea Nitrogen 20 9-16 mg/dL Creatinine 0.79 0.5-1.4 mg/dL Estimated Glomerular Filt Rate > 60 NOTE: For -[place] Citizen individuals, multiply the result by 1.210. Chronic [...] Panel Reviewed date:06/07/2024 11:48:38 AM Interpretation: Performing Lab:[facility], [address] [place] [phone] Notes/Report: Triglycerides 66 <150 mg/dL Desirable Triglyceride: [...] Antigen Reviewed date:06/07/2024 11:48:38 AM Interpretation: Performing Lab:[address] [phone] Notes/Report: Prostate Specific Antigen 1.23 <0.05-4.0 ng/mL PSA methodology: Aligo Alinity i Chemiluminescent Microparticle Immunoassay (CMIA) INR WHOLE BLOOD POC Reviewed date:06/15/2024 08:32:55 AM Interpretation: Performing Lab:[address] [phone] Notes/Report: PT, INR - Anti Coag Clinic 2.0 0.9-1.1 METER #: [id number] INTERNATIONAL NORMALIZED RATIO (INR) REFERENCE RANGES Reference [...] OC Reviewed date:06/15/2024 08:32:55 AM Interpretation: Performing Lab:[facility], [address] [place] [phone] Notes/Report: Prothrombin Time Whole Bld POC 24.4 11.1-13.5 sec INR WHOLE BLOOD POC Reviewed date:07/16/2024 08:35:52 AM Interpretation: Performing Lab:[address] [phone] Notes/Report: PT, INR - Anti Coag Clinic 1.6 0.9-1.1 METER #: [id number] INTERNATIONAL NORMALIZED RATIO (INR) REFERENCE RANGES Reference [...] Prothrombin Time Whole Bld P OC Reviewed date:07/16/2024 08:35:52 AM Interpretation: Performing Lab:[facility], [address] [place] [phone] Notes/Report: Prothrombin Time Whole Bld POC 19.4 [...] Problem Status W/U Status Risk Notes Problem 2268809 Former smoker (Z87.891) Active confirmed He is highly motivated not to smoke and has a plan to prevent relapse in times of stress or illness. Problem 174529040 Overweight (BMI 25.0-29.9) (E66.3) Active confirmed Heis slightly overweight.We discussed diet and nutrition. Problem 178649609 Overweight (E66.3) Active confirmed He has gained 7 pounds. His body mass index is 27. We discussed his weight loss strategy. I recommended aggressive weight loss through regular physical activity and diet restricted in calories. Problem 20861065 Hypertension (I10) Active confirmed His blood pressure is stable today. Problem 93725981 Other chronic pain (G89.29) Active confirmed Problem 452201064 Solitary pulmonary nodule (R91.1) Active confirmed Problem 756332572 Environmental allergies (Z91.09) Active confirmed He has noted itching around his eyes and nasal congestion. He is using iqkx-zea-nopaq er medication. I recommended fluticasone and loratadine. 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 Problem 816025393 DVT (deep venous thrombosis) (I82.409) Active confirmed He has had no blood clots. Problem 080189957 Lung cancer (C34.90) Active confirmed He remains in remission with no relapse. He is no longer smoking. Problem 6844425 Protein S deficiency (D68.59) Active confirmed He is doing well with his chronic anticoagulatio n. The protein S deficiency is no indication for lifelong therapy. Problem 47413922 Other depression (F32.89) Active confirmed His medication was increased to 100 mg daily. A follow-up visit was arranged. He has no suicidal ideation and is beginning to experience improvement. Problem 034444739 Benign prostatic hyperplasia, unspecified whether lower urinary tract symptoms present (N40.0) Active confirmed He arises from sleep once or twice a night to urinate. He will employ lives modification to prevent nocturia. Problem 32870005 Chronic nonintractable headache, unspecified headache type (R51) [...] Date Provider Diagnosis Jose Felder III, MD [address] [place] [address] [place] [phone] 09/30/2023 Jose Acostane 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 ; Lung cancer C34.90 ; Hypertension I10 ; Benign prostatic hyperplasia, unspecified whether lower urinary tract symptoms present N40.0 ; Former smoker Z87.891 ; Environmental allergies Z91.09 ; 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 and Overweight E66.3 Jose Felder III, MD [address] [place] [address] [address] [place] [phone] 01/07/2024 Jose [place] 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 ; Former smoker Z87.891 ; Lung cancer C34.90 ; Hypertension I10 ; 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 ; Environmental allergies Z91.09 ; 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 ; DVT (deep venous thrombosis) I82.409 and Overweight (BMI 25.0-29.9) E66.3 Jose Felder III, MD [address] [place] [address] [place] [address] 01/27/2024 Jose [place] 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 ; Overweight (BMI 25.0-29.9) E66.3 ; Benign prostatic hyperplasia, unspecified whether lower urinary tract symptoms present N40.0 ; Former smoker Z87.891 ; Lung cancer C34.90 and Environmental allergies Z91.09 Jose Felder III, MD [address] [place] [address] [place] [address] 06/07/2024 Jose [place] 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 ; Hypertension I10 ; Overweight E66.3 ; Episodic memory loss R41.3 ; Former smoker Z87.891 and Lung cancer C34.90 Jose Fedler III, MD [address] [place] [address] [address] [place] [phone] 10/22/2023 Jose Felder III, MD [address] [place] [address] [address] [place] [phone] 03/15/2024 Jose Felder Assessments Encounter Date Diagnosis [...] eyes and nasal congestion. He is using dflu-daq-dawrwtb medication. I recommended fluticasone and loratadine. 01/07/2024 Environmental allergies (ICD-10 - Z91.09) He has noted itching around his eyes and nasal congestion. He is using jimz-gut-rljosbr medication. I recommended fluticasone and loratadine. 01/27/2024 Environmental allergies (ICD-10 - Z91.09) He has noted itching around his eyes and nasal congestion. He is using tomh-bfa-afmdbkq medication. I recommended fluticasone and loratadine. 06/07/2024 [...] 07/11/2021 Lipid Panel 06/07/2024 Lipid Panel 01/27/2024 Next Appt Details Provider Name:Jose Felder, 10/04/2024 02:30:00 PM, [address] [place] [address] [address]CO, [place], [address], Insurance Providers Payer Name Payer Address Payer Phone Subscriber Number Group Number Insured Name Patient Relationship to Insured Coverage Start Date Coverage End Date [facility] [address] [place], [place] [id number] Jem Gallardo Self - patient is the [...]
[2024-07-23 08:27] LABS: Prothrombin Time Whole Bld POC 21.4 sec (11.1-13.5); ~PT, ~INR - Anti Coag Clinic 1.8 (0.9-1.1)
--- NOTE | 2024-07-23 08:36 | MHC.OFFVISCO ---
Intake Intake Visit Reasons: Anticoagulation Allergies Seasonal Allergies Allergy (Intermediate, Verified 07/23/24 08:21) Cough venlafaxine Adverse Reaction (Intermediate, Verified 07/23/24 08:21) Headache Medication List - Last Reconciled 07/23/24 by Brenda Trimble RN losartan 25 mg PO DAILY simvastatin 40 mg PO DAILY sumatriptan succinate 100 mg PO PRN warfarin 5 mg See Protocol PO DAILY Nursing Note INR 1.8 STILL out of therapeutic range Medications and supplements reviewed Patient status: LAST VISIT HE HAD BEEN TAKING COQ 10 AND STOPPED IT - BUT STATES HE HAS BEEN TAKING OTHERS- HE WILL BRING LIST NEXT VISIT Medications or supplements: YES CHANGES IN SUPPLEMENTS Diet: GOOD LIKES TO EAT GREENS Denies any signs and symptoms of bleeding or clotting or unusual bruising Bleeding, bruising, clotting discussed Nutritional guidance given: AVOID GREENS TODAY THEN RESUME USUSAL DIET Dose: INCREASE TO 7.5MG X 2 DAYS/ 5MG X 5 DAYS F/U INR Date : 2 WEEKS ?? Patient verbalizing understanding of instructions given. Anti-Coag Initial Assessment Social Hx Patient Tobacco Use Status: Former Tobacco user Tobacco use type: Cigar alcohol intake: never Coding Level of Care Code Est Patient Level 1 Diagnoses Current use of anticoagulant therapy Z79.01 Results AMB INR Fingerstick AMB INR Fingerstick 1.8 Last Edit by Brenda Trimble RN on 07/23/24 08:29 manual entry Assessment & Plan Assessment & Plan (1) Current use of anticoagulant therapy: Code(s): Z79.01 - salvage determiner (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
== END 2024-07-23 08:38 | disposition home or self-care (01) ==
LOC: HO.ACS 08:21
PROVIDERS: PCP Internal Medicine Medical Oncology; Visit Provider Internal Medicine
DX: Z79.01 Long term (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 (principal)

== ENCOUNTER → 2024-07-23 08:21 | Outpatient (BNVA) | payer MEDICARE, SELFPAY | PROVIDERS: PCP Internal Medicine Medical Oncology; Visit Provider Internal Medicine | DX: Z86.718 Personal history of other venous thrombosis and embolism (principal); Z79.01 Long term (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; Z51.81 Encounter for therapeutic drug level monitoring | CPT/HCPCS: 85610; 99211 ==

== ENCOUNTER 2024-08-06 08:15 | Outpatient (AMB) | payer MEDICARE, SELFPAY ==
--- OUTSIDE RECORDS SUMMARY | 2024-08-06 08:18 | XMS_ITS | Patient Health Record ---
Author Organization Jose Felder III, MD Address [address] [place] [address] DR PACKER Kervin LYNCHCESIATRISTA CALEB [address] Care Team Providers Care Hat Block Bench Hand Name Role Phone Jose Felder Primary Care [...] Negative - INR WHOLE BLOOD POC Reviewed date:08/28/2023 06:13:13 PM Interpretation: Performing Lab:[facility], [address] [place] [phone] Notes/Report: PT, INR - Anti Coag Clinic 2.2 0.9-1.1 METER #: [id number] INTERNATIONAL NORMALIZED RATIO (INR) REFERENCE RANGES Reference [...] OC Reviewed date:08/28/2023 06:13:13 PM Interpretation: Performing Lab:[facility], [address] [place] [phone] Notes/Report: Prothrombin Time Whole Bld POC 26.4 11.1-13.5 sec INR WHOLE BLOOD POC Reviewed date:09/30/2023 02:44:40 PM Interpretation: Performing Lab:[facility], [address] [place] [phone] Notes/Report: PT, INR - Anti Coag Clinic 2.3 0.9-1.1 METER #: [id number] INTERNATIONAL NORMALIZED RATIO (INR) REFERENCE RANGES Reference [...] OC Reviewed date:09/30/2023 02:44:40 PM Interpretation: Performing Lab:[facility], [address] [place] [phone] Notes/Report: Prothrombin Time Whole Bld POC 27.1 11.1-13.5 sec Complete Blood Count Auto Di ff Reviewed date:09/30/2023 02:44:40 PM Interpretation: Performing Lab:[facility], [address] [place] [phone] Notes/Report: White Blood Count 10.0 4.8-10.8 X10*3/uL [...] NRBC Abs Auto 0.000 0.0-0.012 X10*3/uL Comprehensive [place]. Panel Fa st Reviewed date:09/30/2023 02:44:40 PM Interpretation: Performing Lab:[facility], [address] [place] [phone] Notes/Report: Sodium 141 135-145 mmol/L Potassium 3.9 3.3-5.1 mmol/L Chloride 107 96-108 mmol/L Carbon Dioxide 27 22-29 mmol/L Anion Gap 11 12-20 Blood Urea Nitrogen 18 9-16 mg/dL Creatinine 0.73 0.5-1.4 mg/dL Estimated Glomerular Filt Rate > 60 NOTE: For -German individuals, multiply the result by 1.210. Chronic [...] Panel Reviewed date:09/30/2023 02:44:40 PM Interpretation: Performing Lab:[facility], [address] [place] [phone] Notes/Report: Triglycerides 97 <150 mg/dL Desirable Triglyceride: [...] POC Reviewed date:10/25/2023 03:39:32 PM Interpretation: Performing Lab:[facility], [address] [place] [phone] Notes/Report: PT, INR - Anti Coag Clinic 2.0 0.9-1.1 METER #: [id number] INTERNATIONAL NORMALIZED RATIO (INR) REFERENCE RANGES Reference [...] OC Reviewed date:10/25/2023 03:39:32 PM Interpretation: Performing Lab:[facility], [address] [place] [phone] Notes/Report: Prothrombin Time Whole Bld POC 24.5 11.1-13.5 sec INR WHOLE BLOOD POC Reviewed date:11/21/2023 01:41:43 PM Interpretation: Performing Lab:[facility], [address] [place] [phone] Notes/Report: PT, INR - Anti Coag Clinic 2.5 0.9-1.1 METER #: [id number] INTERNATIONAL NORMALIZED RATIO (INR) REFERENCE RANGES Reference [...] OC Reviewed date:11/21/2023 01:41:43 PM Interpretation: Performing Lab:[facility], [address] [place] [phone] Notes/Report: Prothrombin Time Whole Bld POC 30.5 11.1-13.5 sec INR WHOLE BLOOD POC Reviewed date:12/17/2023 09:46:09 AM Interpretation: Performing Lab:[facility], [address] [place] [phone] Notes/Report: PT, INR - Anti Coag Clinic 2.3 0.9-1.1 METER #: [id number] INTERNATIONAL NORMALIZED RATIO (INR) REFERENCE RANGES Reference [...] OC Reviewed date:12/17/2023 09:46:09 AM Interpretation: Performing Lab:[facility], [address] [place] [phone] Notes/Report: Prothrombin Time Whole Bld POC 27.3 11.1-13.5 sec INR WHOLE BLOOD POC Reviewed date:01/24/2024 05:54:24 PM Interpretation: Performing Lab:[facility], [address] [place] [phone] Notes/Report: PT, INR - Anti Coag Clinic 3.3 0.9-1.1 METER #: [id number] INTERNATIONAL NORMALIZED RATIO (INR) REFERENCE RANGES Reference [...] OC Reviewed date:01/24/2024 05:54:24 PM Interpretation: Performing Lab:[facility], [address] [place] [phone] Notes/Report: Prothrombin Time Whole Bld POC 39.9 11.1-13.5 sec Complete Blood Count Auto Di ff Reviewed date:02/10/2024 12:49:39 PM Interpretation: Performing Lab:[facility], [address] [place] [phone] Notes/Report: White Blood Count 9.1 4.8-10.8 X10*3/uL [...] NRBC Abs Auto 0.000 0.0-0.012 X10*3/uL Comprehensive [place]. Panel Fa st Reviewed date:02/10/2024 12:49:39 PM Interpretation: Performing Lab:[address] [phone] Notes/Report: Sodium 142 135-145 mmol/L Potassium 4.3 3.3-5.1 mmol/L Chloride 109 96-108 mmol/L Carbon Dioxide 26 22-29 mmol/L Anion Gap 11 12-20 Blood Urea Nitrogen 23 9-16 mg/dL Creatinine 0.76 0.5-1.4 mg/dL Estimated Glomerular Filt Rate > 60 NOTE: For -German individuals, multiply the result by 1.210. Chronic [...] Panel Reviewed date:02/10/2024 12:49:39 PM Interpretation: Performing Lab:[facility], [address] [place] [phone] Notes/Report: Triglycerides 59 <150 mg/dL Desirable Triglyceride: [...] Antigen Reviewed date:02/10/2024 12:49:39 PM Interpretation: Performing Lab:[facility], [address] [place] [phone] Notes/Report: Prostate Specific Antigen 1.37 <0.05-4.0 ng/mL PSA methodology: Sheets Alinity i Chemiluminescent Microparticle Immunoassay (CMIA) INR WHOLE BLOOD POC Reviewed date:02/10/2024 12:49:39 PM Interpretation: Performing Lab:[address] [phone] Notes/Report: PT, INR - Anti Coag Clinic 1.9 0.9-1.1 METER #: [id number] INTERNATIONAL NORMALIZED RATIO (INR) REFERENCE RANGES Reference [...] OC Reviewed date:02/10/2024 12:49:39 PM Interpretation: Performing Lab:[facility], [address] [place] [phone] Notes/Report: Prothrombin Time Whole Bld POC 22.3 11.1-13.5 sec INR WHOLE BLOOD POC Reviewed date:03/21/2024 06:44:39 AM Interpretation: Performing Lab:[address] [phone] Notes/Report: PT, INR - Anti Coag Clinic 1.7 0.9-1.1 METER #: [id number] INTERNATIONAL NORMALIZED RATIO (INR) REFERENCE RANGES Reference [...] OC Reviewed date:03/21/2024 06:44:39 AM Interpretation: Performing Lab:[facility], [address] [place] [phone] Notes/Report: Prothrombin Time Whole Bld POC 20.4 11.1-13.[address] head/brain wo con Reviewed date:03/21/2024 06:44:39 AM Interpretation: Performing Lab: Notes/Report: [address] [address] [address] Scan Report Signed Patient: Jem Gallardo MR#: [id number] 3 : 1945 Acct:[id number] Age/Sex: 79 / M ADM Date: 03/15/24 Loc: HO.ED Attending Dr: Ordering Physician: Lynne Fields Date of Service: 03/15/24 Procedure(s): CT head/brain wo IV con Accession Number(s): [id number] cc: Jose Felder MD; Lynne Fields EXAMINATION: [...] in OV> 03/15/24 1601 DD/ 1227 TD/TT: Bpm Developer: [place] [address] CT Scan Report Signed Patient: Jem Gallardo MR#: [id number] 3 : 1945 Acct:[id number] Age/Sex: 79 / M ADM Date: 03/15/24 Loc: .ED Attending Dr: Ordering Physician: Lynne Fields Date of Service: 03/15/24 Procedure(s): CT head/brain wo IV con Accession Number(s): [id number] cc: Jose Felder MD; Lynne Fields EXAMINATION: [...] Stone MD Signed By: <Electronically signed by Samer MD Bertha in OV> 03/15/24 1601 DD/ 1227 TD/TT: Bpm Developer: INR WHOLE BLOOD POC Reviewed date:03/25/2024 08:29:44 PM Interpretation: Performing Lab:[facility], [address] [place] [phone] Notes/Report: PT, INR - Anti Coag Clinic 2.1 0.9-1.1 METER #: [id number] INTERNATIONAL NORMALIZED RATIO (INR) REFERENCE RANGES Reference [...] OC Reviewed date:03/25/2024 08:29:44 PM Interpretation: Performing Lab:[facility], [address] [place] [phone] Notes/Report: Prothrombin Time Whole Bld POC 25.8 11.1-13.5 sec INR WHOLE BLOOD POC Reviewed date:04/21/2024 06:39:37 AM Interpretation: Performing Lab:[facility], [address] [place] [phone] Notes/Report: PT, INR - Anti Coag Clinic 1.9 0.9-1.1 METER #: [id number] INTERNATIONAL NORMALIZED RATIO (INR) REFERENCE RANGES Reference [...] OC Reviewed date:04/21/2024 06:39:38 AM Interpretation: Performing Lab:[facility], [address] [place] [phone] Notes/Report: Prothrombin Time Whole Bld POC 22.2 11.1-13.5 sec INR WHOLE BLOOD POC Reviewed date:05/18/2024 11:38:32 AM Interpretation: Performing Lab:[facility], [address] [place] [phone] Notes/Report: PT, INR - Anti Coag Clinic 2.1 0.9-1.1 METER #: [id number] INTERNATIONAL NORMALIZED RATIO (INR) REFERENCE RANGES Reference [...] OC Reviewed date:05/18/2024 11:38:32 AM Interpretation: Performing Lab:[facility], [address] [place] [phone] Notes/Report: Prothrombin Time Whole Bld POC 25.7 11.1-13.5 sec Complete Blood Count Auto Di ff Reviewed date:06/07/2024 11:48:38 AM Interpretation: Performing Lab:[facility], [address] [place] [phone] Notes/Report: White Blood Count 9.5 4.8-10.8 X10*3/uL [...] NRBC Abs Auto 0.000 0.0-0.012 X10*3/uL Comprehensive [place]. Panel Fa st Reviewed date:06/07/2024 11:48:38 AM Interpretation: Performing Lab:[facility], [address] [place] [phone] Notes/Report: Sodium 144 135-145 mmol/L Potassium 4.7 3.3-5.1 mmol/L Chloride 108 96-108 mmol/L Carbon Dioxide 27 22-29 mmol/L Anion Gap 14 12-20 Blood Urea Nitrogen 20 9-16 mg/dL Creatinine 0.79 0.5-1.4 mg/dL Estimated Glomerular Filt Rate > 60 NOTE: For -German individuals, multiply the result by 1.210. Chronic [...] Panel Reviewed date:06/07/2024 11:48:38 AM Interpretation: Performing Lab:[facility], [address] [place] [phone] Notes/Report: Triglycerides 66 <150 mg/dL Desirable Triglyceride: [...] Antigen Reviewed date:06/07/2024 11:48:38 AM Interpretation: Performing Lab:[facility], [address] [place] [phone] Notes/Report: Prostate Specific Antigen 1.23 <0.05-4.0 ng/mL PSA methodology: Sheets Alinity i Chemiluminescent Microparticle Immunoassay (CMIA) INR WHOLE BLOOD POC Reviewed date:06/15/2024 08:32:55 AM Interpretation: Performing Lab:[facility], [address] [place] [phone] Notes/Report: PT, INR - Anti Coag Clinic 2.0 0.9-1.1 METER #: [id number] INTERNATIONAL NORMALIZED RATIO (INR) REFERENCE RANGES Reference [...] OC Reviewed date:06/15/2024 08:32:55 AM Interpretation: Performing Lab:[facility], [address] [place] [phone] Notes/Report: Prothrombin Time Whole Bld POC 24.4 11.1-13.5 sec INR WHOLE BLOOD POC Reviewed date:07/16/2024 08:35:52 AM Interpretation: Performing Lab:[facility], [address] [place] [phone] Notes/Report: PT, INR - Anti Coag Clinic 1.6 0.9-1.1 METER #: [id number] INTERNATIONAL NORMALIZED RATIO (INR) REFERENCE RANGES Reference [...] OC Reviewed date:07/16/2024 08:35:52 AM Interpretation: Performing Lab:[facility], [address] [place] [phone] Notes/Report: Prothrombin Time Whole Bld POC 19.4 11.1-13.5 sec INR WHOLE BLOOD POC Reviewed date:07/23/2024 09:07:49 PM Interpretation: Performing Lab:[facility], [address] [place] [phone] Notes/Report: PT, INR - Anti Coag Clinic 1.8 0.9-1.1 METER #: [id number] INTERNATIONAL NORMALIZED RATIO (INR) REFERENCE RANGES Reference [...] Prothrombin Time Whole Bld P OC Reviewed date:07/23/2024 09:07:49 PM Interpretation: Performing Lab:[facility], [address] [place] [phone] Notes/Report: Prothrombin Time Whole Bld POC 21.4 11.1-13.5 sec Reason For Referral No Information Medications Medication SIG (Take, Route, Frequency, Duration) Notes Start Date End Date Status Imitrex 100 MG 1 tablet as needed O rally As needed Active Losartan Potassium 25 MG as directed Ora lly Once a day Active traZODone HCl 50 MG 1 tablet Orally Once a day Active SUMAtriptan Succinate 100 MG TAKE 1 TABLET BY MOUTH EVERY DAY AT THE ONSET OF MIGRAINE; MAY REPEATevery 22 HOURS IF when SYPTOMS PERSISTS; MAX OF 2 TS/ DAY Orally Once a day for 9 days Active Venlafaxine HCl 50 MG 1 tablet [...] Problem Status W/U Status Risk Notes Problem 1676842 Former smoker (Z87.891) Active confirmed He is highly motivated not to smoke and has a plan to prevent relapse in times of stress or illness. Problem 709001343 Overweight (BMI 25.0-29.9) (E66.3) Active confirmed Heis slightly overweight.We discussed diet and nutrition. Problem 681233696 Overweight (E66.3) Active confirmed He has gained 7 pounds. His body mass index is 27. We discussed his weight loss strategy. I recommended aggressive weight loss through regular physical activity and diet restricted in calories. Problem 14180073 Hypertension (I10) Active confirmed His blood pressure is stable today. Problem 98512273 Other chronic pain (G89.29) Active confirmed Problem 949490804 Solitary pulmonary nodule (R91.1) Active confirmed Problem 173789502 Environmental allergies (Z91.09) Active confirmed He has noted itching around his eyes and nasal congestion. He is using imbi-ftf-scpir er medication. I recommended fluticasone and loratadine. 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 Problem 045325411 DVT (deep venous thrombosis) (I82.409) Active confirmed He has had no blood clots. Problem 277519449 Lung cancer (C34.90) Active confirmed He remains in remission with no relapse. He is no longer smoking. Problem 4388989 Protein S deficiency (D68.59) Active confirmed He is doing well with his chronic anticoagulatio n. The protein S deficiency is no indication for lifelong therapy. Problem 37488147 Other depression (F32.89) Active confirmed His medication was increased to 100 mg daily. A follow-up visit was arranged. He has no suicidal ideation and is beginning to experience improvement. Problem 147403601 Benign prostatic hyperplasia, unspecified whether lower urinary tract symptoms present (N40.0) Active confirmed He arises from sleep once or twice a night to urinate. He will employ lives modification to prevent nocturia. Problem 98092639 Chronic nonintractable headache, unspecified headache type (R51) [...] Date Provider Diagnosis Jose Felder III, MD [address] [place] [address] [place] [phone] 09/30/2023 Jose Felder 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 ; Lung cancer C34.90 ; Hypertension I10 ; Benign prostatic hyperplasia, unspecified whether lower urinary tract symptoms present N40.0 ; Former smoker Z87.891 ; Environmental allergies Z91.09 ; 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 and Overweight E66.3 Jose Felder III, MD [address] [place] [address] [place] [phone] 01/07/2024 Jose Felder 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 ; Former smoker Z87.891 ; Lung cancer C34.90 ; Hypertension I10 ; 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 ; Environmental allergies Z91.09 ; 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 ; DVT (deep venous thrombosis) I82.409 and Overweight (BMI 25.0-29.9) E66.3 Jose Felder III, MD [address] [place] [address] [place] [phone] 01/27/2024 Jose Acostane 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 ; Overweight (BMI 25.0-29.9) E66.3 ; Benign prostatic hyperplasia, unspecified whether lower urinary tract symptoms present N40.0 ; Former smoker Z87.891 ; Lung cancer C34.90 and Environmental allergies Z91.09 Jose Felder III, MD [address] [place] [address] [place] [phone] 06/07/2024 Jose Acostane 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 ; Hypertension I10 ; Overweight E66.3 ; Episodic memory loss R41.3 ; Former smoker Z87.891 and Lung cancer C34.90 Jose Felder III, MD [address] [place] [address] [place] [phone] 10/22/2023 Jose Felder III, MD [address] [place] [address] [place] [phone] 03/15/2024 Jose [place] Assessments Encounter Date Diagnosis (ICD Code) Assessment [...] eyes and nasal congestion. He is using rztz-dzl-hzukita medication. I recommended fluticasone and loratadine. 01/07/2024 Environmental allergies (ICD-10 - Z91.09) He has noted itching around his eyes and nasal congestion. He is using pywb-zlv-jdsodyb medication. I recommended fluticasone and loratadine. 01/27/2024 Environmental allergies (ICD-10 - Z91.09) He has noted itching around his eyes and nasal congestion. He is using vzoh-kuj-clzcrme medication. I recommended fluticasone and loratadine. 06/07/2024 [...] Details Provider Name:Jose Felder, 10/04/2024 02:30:00 PM, [address] [facility] [address], [place], [address], Insurance Providers Payer Name Payer Address Payer Phone Subscriber Number Group Number Insured Name Patient Relationship to Insured Coverage Start Date Coverage End Date [facility] [address] [place], [place] [id number] Jem Gallardo Self - patient is the insured Medical (General) History Medical History History ICD Code migraine headaches allergies hypertension anal fissure staphylococcal infection 1999 chronic lymphocytic leukemia in formerly [facility] lung cancer, non-small cell obesity former [...]
--- OUTSIDE RECORDS SUMMARY | 2024-08-06 08:18 | XMS_ITS ---
Author Organization Jose Felder III, MD Address [address] [place] [place] [address] Care Team Providers Care Statistical Developer Name Role Phone Jose Felder Primary Care Provider REASON FOR VISIT Message Social History Sex Assigned At : Social History Observation Description Sex Assigned At Male Encounters Encounter Location Date Provider Diagnosis Jose Felder III, MD [address] [place] [address] [place] [address] 03/15/2024 Jose Felder Plan Of Treatment Next Appt Details Provider Name:Jose Felder, 10/04/2024 02:30:00 PM, [address] [place] [address] [place], [address], Progress Notes * Jem QUINTEROSDOB:1945 ( 79 yo M)Acc No.[id number]:03/15/2024 Patient:?PaulinaJem :1945???Age:79 Y???Sex:Male Address:[place] [address] * true * Date:? Generated for Printi ng/Fasindyg/eTransmitting on:?08/06/2024 08:17 AM EST
--- OUTSIDE RECORDS SUMMARY | 2024-08-06 08:18 | XMS_ITS ---
Author Organization Jose Felder III, MD Address [address] [place] [address] [address] [place] [address] Care Team Providers Care Hand Meat Salter Name Role Phone Jose Felder Primary Care Provider [phone] REASON FOR VISIT follow up Social History Sex Assigned At : Social History Observation Description Sex Assigned At Male Encounters Encounter Location Date Provider Diagnosis Jose Felder III, MD [address] [place] [address] [place] [phone] 05/28/2024 Jose Felder Plan Of Treatment Next Appt Details Provider Name:Jose Felder, 10/04/2024 02:30:00 PM, [address] [place] [address] [place], [phone], Progress Notes * Jem QUINTEROSDOB:1945 ( 79 yo M)Acc No.[id number]:05/28/2024 Progress Notes Patient:?ARNOLDSHILOHJem Drew Provider:?Jose Felder MD [...] Felder MD Date:?05/05 Generated for Frandy mittal/Apple/Rubenitting on:?08/06/2024 08:17 AM EST
[2024-08-06 08:23] LABS: Prothrombin Time Whole Bld POC 25.3 sec (11.1-13.5); ~PT, ~INR - Anti Coag Clinic 2.1 (0.9-1.1)
--- NOTE | 2024-08-06 08:28 | MHC.OFFVISCO ---
Intake Intake Visit Reasons: Anticoagulation Allergies Seasonal Allergies Allergy (Intermediate, Verified 08/06/24 08:17) Cough venlafaxine Adverse Reaction (Intermediate, Verified 08/06/24 08:17) Headache Medication List - Last Reconciled 08/06/24 by Brenda Trimble RN losartan 25 mg PO DAILY simvastatin 40 mg PO DAILY sumatriptan succinate 100 mg PO PRN warfarin 5 mg See Protocol PO DAILY Nursing Note INR: 2.1 in therapeutic range Medications and supplements reviewed HAD A COLD ALMOST 2 WEESK STILL CONGESTED BUT GETTING BETTER, ENC TO CALL WITH ANY MED CHANGES- EATING ORANGES Denies any signs and symptoms of bleeding or bruising or clotting. Bleeding, bruising, clotting discussed Nutritional guidance given Dose: KEEP SAME DOSE 7.5MG X 2 DAYS/ 5MG X 5 DAYS F/U INR: 3 WEEKS TO MAKE SURE INR HOLDS Patient verbalizes understanding of instructions given Anti-Coag Initial Assessment Social Hx Patient Tobacco Use Status: Former Tobacco user Tobacco use type: Cigar alcohol intake: never Coding Level of Care Code Est Patient Level 1 Diagnoses Current use of anticoagulant therapy Z79.01 Assessment & Plan Assessment & Plan (1) Current use of anticoagulant therapy: Code(s): Z79.01 - [facility] (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
== END 2024-08-06 08:33 | disposition home or self-care (01) ==
LOC: HO.ACS 08:15
PROVIDERS: PCP Internal Medicine Medical Oncology; Visit Provider Internal Medicine
DX: Z79.01 Long term (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 (principal)

== ENCOUNTER → 2024-08-06 08:15 | Outpatient (BNVA) | payer MEDICARE, SELFPAY | PROVIDERS: PCP Internal Medicine Medical Oncology; Visit Provider Internal Medicine | DX: Z86.718 Personal history of other venous thrombosis and embolism (principal); Z79.01 Long term (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; Z51.81 Encounter for therapeutic drug level monitoring | CPT/HCPCS: 85610; 99211 ==

== ENCOUNTER 2024-08-31 07:59 | Outpatient (AMB) | payer MEDICARE, SELFPAY ==
--- OUTSIDE RECORDS SUMMARY | 2024-08-31 08:03 | XMS_ITS | Encounter Summary ---
Author Organization [facility] Address [address] [place] [address] Care Team Providers Care Information Technology Assistant Name Role Phone Wilner Paulson MD Primary Care Provider Unavailable Jose Felder MD Primary Care Provider Vladimir kapoor Encounter Details Date Type Department Care Team Description 02/27/2017 Business Doc Medical Records [address] [place] [id number] Abstract, Provider Social History Tobacco Use Types Packs/Day Years Used Date Smoking Tobacco: Former Comments:smoked x40 yrs on a nd off Alcohol Use Standard Drinks/Week Comments Yes 0 (1 standard drink = 0.6 oz pur e alcohol) occasional Sex Assigned at Date Recorded Not on file documented as of this encounter Plan of Treatment Not on file documented as of this encounter Visit Diagnoses Not on filedocumented in this encounter Care Teams Information Technology Assistant Relationship Specialty Start Date End Date Wilner Paulson MD PCP - General Internal Medicine 11/13/1601/02 Jose Felder MD PCP - General Oncology/Hematology 01/19/18 documented as of this encounter
--- OUTSIDE RECORDS SUMMARY | 2024-08-31 08:03 | XMS_ITS ---
Author Organization Jose Felder III, MD Address [address] [place] [address] [place] [address] Care Team Providers Care Vp Information Technology Name Role Phone Jose Felder Primary Care Provider [phone] Allergies Allergen (clinical drug ingredient) Drug/Non Drug Allergy documented on EMR Reaction Allergy Type Onset Date Status Seasonale Unknown Drug Allergy Active REASON FOR VISIT Covid 19 infection Medications Medication SIG (Take, Route, Frequency, Duration) Notes Start Date End Date Status traZODone HCl 50 MG 1 tablet Orally Once a day 01/27/2024 Active Venlafaxine HCl 50 MG 1 tablet with food Orally Once a day 04/16/2023 Active Simvastatin 40 MG TAKE 1 TABLET BY MOUTH DAILY Active Warfarin Sodium 5 MG TAKE 1 TABLET BY MOUTH ONCE DAILY Active Losartan Potassium 25 MG as directed Orally Once a day Active Paxlovid (300/100) 20 x 150 MG & 10 x 100MG 3 tablets Orally Twice a day gfr above 60 06-07-2034 08/23/2024 Active SUMAtriptan Succinate 100 MG TAKE 1 TABLET BY MOUTH EVERY DAY AT THE ONSET OF MIGRAINE; MAY REPEATevery 22 HOURS IF when SYPTOMS PERSISTS; MAX OF 2 TS/ DAY Orally Once a day Active Imitrex 100 MG 1 tablet as needed Orally As needed Active Social History Sex Assigned At : Social History Observation Description Sex Assigned At Male Vital Signs Height 71 in 08/23/2024 Encounters Encounter Location Date Provider Diagnosis Jose Felder III, MD [address] [place] [address] [address], [place] [address] 08/23/2024 Jose Felder COVID-19 virus infection U07.1 ; 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 He seems stable at this time. 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 08/23/2024 Former smoker (ICD-10 - Z87.891) He is highly motivated not to smoke and has a plan to prevent relapse in times of stress or illness. 08/23/2024 Lung cancer (ICD-10 - C34.90) He remains in remission with no relapse. He is no longer smoking. 08/23/2024 Environmental allergies (ICD-10 - Z91.09) He has noted itching around his eyes and nasal congestion. He is using [id number] medication. I recommended fluticasone and loratadine. 08/23/2024 Overweight (ICD-10 - E66.3) He has gained 7 pounds. His body mass index is 27. We discussed his weight loss strategy. I recommended aggressive weight loss through regular physical activity and diet restricted in calories. Plan Of Treatment Medication Medication Name Sig Start Date Stop Date Notes traZODone HCl 50 MG 1 tablet Orally Once a day 01/27/2024 Venlafaxine HCl 50 MG 1 tablet with food Orally Once a day 04/16/2023 Simvastatin 40 MG TAKE 1 TABLET BY BRIANNE TH DAILY Warfarin Sodium 5 MG TAKE 1 TABLET BY MO UTH ONCE DAILY Losartan Potassium 25 MG as directed Ora lly Once a day Paxlovid (300/100) 20 x 150 MG & 10 x 100MG 3 tablets Orally Twice a day 08/23/2024 gfr above 60 06-07-2034 SUMAtriptan Succinate 100 MG TAKE 1 TABLET BY MOUTH EVERY DAY AT THE ONSET OF MIGRAINE; MAY REPEATevery 22 HOURS IF when SYPTOMS PERSISTS; MAX OF 2 TS/ DAY Orally Once a day Imitrex 100 MG 1 tablet as needed Orally As needed Next Appt Details Follow Up: As Scheduled, Tamiko son: Annual Exam Provider Name:Jose Felder, 10/04/2024 02:30:00 PM, [address] [place] [address] DR, [address], [facility], [address], Progress Notes * Jem QUINTEROSDOB:1945 ( 79 yo M)Acc No.[id number]:08/23/2024 Patient:?Jem QUINTEROS Provider:?Jose Felder MD :1945???Age:79 Y???Sex:Male Darius e:08/23/2024 [address]: [id number] Subjective: * Chief Complaints: * ???Covid 19 infection * HPI: ???v:?This telehealth visit? took place over 15 min. with the patient at home and me in my office.? He gave consent for billing. He callled the office today because he has had viral symptoms for 3 days.He tested positive for Covid today.? He has a productive cough and a low-grade fever of 99, but no sore throat.? He is able to eat and drink normally and has an appetite.? He has had no nausea, vomiting or diarrhea.? He feels weak.? He was given a prescription for Paxlovid.? He will call and report his status every 48 hours or at once if he worsens.? He said he had no breathing impairments today.I stopped the simvastatin until the Paxlovid has been completed. ???:?Telehealth?Location of provider rendering services:?{...} [address] [employer] [address] ?Location of patient:?address listed in demographics for today's visit ?Patient identification confirmed using:?Name, ?Telehealth method:?Telephone only. Patient not visible to care provider. ?Consent:?Patient verbally consented to treatment, Patient verbally consented to billing insurance company, Patient informed of any privacy concerns related to method of visit ?Total time spent with patient (mins)?15 * ROS:?General/Constitutional:?pain?only normal aches and pains.?Chills?associated with fever.?Fatigue?admits.?Fever?up to 99 degrees.?ENT:?Decreased hearing?denies.?Respiratory:?Cough?non-productive.?Cardiovascular:?Chest pain with exertion?denies.?Dyspnea on exertion?denies.?Shortness of breath?denies.?Gastrointestinal:?Constipation?occasional.?Decreased appetite?denies.?Diarrhea?denies.?Heartburn?denies.?Nausea?denies.?Rectal bleeding?denies.?Vomiting?denies.?Hematology:?bruising?denies.?petechiae?denies.?Swollen glands?none have been noted.?Genitourinary:?Frequent urination?once a night.?Musculoskeletal:?Muscle aches?denies.?Painful joints?denies.?Sciatica?denies.?Weakness?denies.?Skin:?Itching?denies.?Rash?denies.?Skin lesion(s)?denies.?Neurologic:?Difficulty speaking?denies.?Dizziness?denies.?Headache?denies.?Low back pain?denies.?Psychiatric:?Depressed mood?denies.? * Medical History:? * Surgical History:?FNA superi or mediastinal mass cataract right eye 06/2018Cyst removed from his back 08/2022No history * Hospitalization/Major Diagno stic Procedure:?No history * Family History:?Father: dece ased 92 yrs, diagnosed with Hyperlipidemia, DM.?Children: alive.?Son(s): alive.?Siblings: .?4 brother(s) , 1 sister(s) [...] lobe dementia three years ago. 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 The patient is retired and does not [...] Tablet TAKE 1 TABLET BY MOUTH DAILY Venlafaxine HCl 50 MG Tablet 1 tablet with food Orally Once a day traZODone HCl 50 MG Tablet 1 tablet Orally Once a day SUMAtriptan Succinate 100 MG Tablet TAKE 1 TABLET BY MOUTH EVERY DAY AT THE ONSET OF MIGRAINE; MAY REPEATevery 22 HOURS IF when SYPTOMS PERSISTS; MAX OF 2 TS/ DAY Orally Once a day Taking Imitrex 100 MG Tablet 1 tablet as needed Orally As needed Taking Losartan Potassium 25 MG Tablet as directed Orally Once a day Taking Warfarin Sodium 5 MG Tablet TAKE 1 TABLET BY MOUTH ONCE DAILY Taking Simvastatin 40 MG Tablet TAKE 1 TABLET BY MOUTH DAILY Taking Venlafaxine HCl 50 MG Tablet 1 tablet with food Orally Once a day Taking traZODone HCl 50 MG Tablet 1 tablet Orally Once a day Taking SUMAtriptan Succinate 100 MG Tablet TAKE 1 TABLET BY MOUTH EVERY DAY AT THE ONSET OF MIGRAINE; MAY REPEATevery 22 HOURS IF when SYPTOMS PERSISTS; MAX OF 2 TS/ DAY Orally Once a day * Allergies:?Seasonale Objective: * Vitals:?Ht: 71. Assessment: * Assessment: 1.?COVID-19 virus infection - U07.1 (Primary)???Notes :I have prescribed Paxlovid And arrange followup telephone calls every 48 hours.? He seems stable at this time.???2.?Chronic lymphoid leukemia - C91.10???Notes :This diagnosis remains in remission since he finished his chemotherapy.???3.?Former smoker - Z87.891???Notes :He is highly motivated not to smoke and has a plan to prevent relapse in times of stress or illness.???4.?Lung cancer - C34.90???Notes :He remains in remission with no relapse. He is no longer smoking.???5.?Environmental allergies - Z91.09???Notes :He has noted itching around his eyes and nasal congestion. He is using [id number] medication. I recommended fluticasone and loratadine.???6.?Overweight - E66.3???Notes :He has gained 7 pounds. His body mass index is 27. We discussed his weight loss strategy. I recommended aggressive weight loss through regular physical activity and diet restricted in calories.??? Plan: * Treatment: * Procedure Codes:? * Preventive Medicine:? ??Counseling:?Care goal follow-up plan:?Counseling for abnormal BMI given?Yes ?Above Normal BMI Follow-up?Dietary management education, guidance, and counseling, Dietary needs education ?Smoking/Tobacco Use?Patient counseled on the dangers of tobacco use and urged to quit.?08/23/2024 * Follow Up:?As Scheduled (Canadensis son: Annual Exam) * Images: * Sign off status: Completed true * Provider:?Jose Felder MD Date:?08/05 Generated for Frandy mittal/Apple/Rubenitting on:?08/31/2024 08:03 AM EST History and Physical Notes * HPI (History of Present Illness) Category Sub-Category Detail Notes [facility]health [facility]:: {...} [address] [employer] [address] Location of patient:: address listed in demographics for today's visit Patient identification confirmed using:: Name, Telehealth method:: Telephone only. Any ent not visible to care provider. Consent:: Patient verbally c onsented to treatment, Patient verbally consented to billing insurance company, Patient informed of any privacy concerns related to method of visit Total time spent with patient (mins): 15
--- OUTSIDE RECORDS SUMMARY | 2024-08-31 08:04 | XMS_ITS ---
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
--- OUTSIDE RECORDS SUMMARY | 2024-08-31 08:04 | XMS_ITS | Encounter Summary ---
Author Organization [facility] Address [address] [place] [address] Care Team Providers Care Engine Room Helper Name Role Phone Wilner Paulson MD Primary Care Provider Jose Hines MD Primary Care Provider Vladimir kapoor Reason for Visit * Reason Onset Date Comments TEST RESULTS 07/02/2017 Encounter Details Date Type Department Care Team Description 07/02/2017 Telephone Adult Medicine - [address] [address] Wilner Paulson MD TEST RESULTS Social History Tobacco Use Types Packs/Day Years Used Date Smoking Tobacco: Former Cigarettes Q uit: 2010 Smokeless Tobacco: Never Comments:smoked x40 yrs on a nd off Alcohol Use Standard Drinks/Week Comments Yes 0 (1 standard drink = 0.6 oz pur e alcohol) occasional Sex Assigned at Date Recorded Not on file documented as of this encounter Miscellaneous Notes * Telephone Encounter - Lindsay Henry M.A. - 07/02/2017 8:20 AM EST Images from the original note were not included. Lvm advised to call the office. Please advised of message below Wilner Paulson MD [facility] Adult Med Floor Nurse ? Please call patient to inform the results Please let him know the labs are good. His vitamin b12 is slightly low and he can take over the counter b12 tablets 500mcg once daily documented in this encounter Plan of Treatment Not on file documented as of this encounter Visit Diagnoses Not on filedocumented in this encounter Care Teams Engine Room Helper Relationship Specialty Start Date End Date Wilner Paulson MD PCP - General Internal Medicine 11/13/1601/02 Jose Felder MD PCP - General Oncology/Hematology 01/19/18 documented as of this encounter
--- OUTSIDE RECORDS SUMMARY | 2024-08-31 08:04 | XMS_ITS | Encounter Summary ---
Author Organization [facility] Address [address] [place] [address] Care Team Providers Care Toe Sewer Name Role Phone Wilner Paulson MD Primary Care Provider Unavailable Jose Felder MD Primary Care Provider Vladimir kapoor Encounter Details Date Type Department Care Team Description 12/18/2016 [facility] Medical Records [address] [place] [address] Abstract, Provider Social History Tobacco Use Types [...] on filedocumented in this encounter Care Teams Toe Sewer Relationship Specialty Start Date End Date Wilner Paulson MD PCP - General Internal Medicine 11/13/1601/02 Jose Felder MD PCP - General Oncology/Hematology 01/19/18 documented as of this encounter
--- OUTSIDE RECORDS SUMMARY | 2024-08-31 08:04 | XMS_ITS ---
Author Organization Jose Felder III, MD Address [address] [place] [address] [address] [place] [place] [address] Care Team Providers Care Quebracho Tanner Name Role Phone Jose Felder Primary Care Provider [phone] Medications Medication SIG (Take, Route, Frequency, Duration) Notes Start Date End Date Status Paxlovid (300/100) 20 x 150 MG & 10 x 100MG 3 tablets Orally Twice a day for 5 days gfr above 60 06-07-2034 08/23/2024 Active Social History Sex Assigned At : Social History Observation Description Sex Assigned At Male Encounters Encounter Location Date Provider Diagnosis Jose Felder III, MD [address] [place] [address] [place] [address] 08/23/2024 Jose Felder Plan Of Treatment Medication Medication Name Sig Start Date Stop Date Notes Paxlovid (300/100) 20 x 150 MG & 10 x 100MG 3 tablets Orally Twice a day for 5 days 08/23/2024 gfr above 60 06-07-2034 Next Appt Details Provider Name:Jose Felder, 10/04/2024 02:30:00 PM, [address] [place] [address] [place], [address], Progress Notes * Jem QUINTEROSDOB:1945 ( 79 yo M)Acc No.[id number]:08/23/2024 Patient:?Jem QUINTEROS :1945???Age:79 Y???Sex:Male Address: [place] [address] * Refills? Start Paxlovid (300/100) Tablet Therapy Pack, 20 x 150 MG & 10 x 100MG, Orally, 30, 3 tablets, Twice a day, 5 days, Refills=0 * true * Date:? Generated for Frandy mittal/Apple/Kennethsmitting on:?08/31/2024 08:03 AM EST
--- OUTSIDE RECORDS SUMMARY | 2024-08-31 08:04 | XMS_ITS | Encounter Summary ---
[facility] Address [address] [place] [address] Care Team Providers Care Tutorial Laboratory Supervisor Name Role Phone Jose Felder MD Primary Care Provider Vladimir kapoor Reason for Visit * Reason Onset Date Comments Appointment Cancelled 06/30/2018 Encounter Details Date Type Department Care Team Description 06/30/2018 Telephone Pulmonology - [place] [address] [facility] [address] [place] [address] Tanisha Gonzalez, [facility] [address] [place] [address] Appointment Cancelled Social History Tobacco Use Types Packs/Day Years Used Date Smoking Tobacco: Former Cigarettes Q uit: 2010 Smokeless Tobacco: Never Comments:smoked x40 yrs on a nd off Alcohol Use Standard Drinks/Week Comments Yes 0 (1 standard drink = 0.6 oz pur e alcohol) occasional Sex Assigned at Date Recorded Not on file documented as of this encounter Miscellaneous Notes * Telephone Encounter - Zoya Toledo - 06/30/2018 4:20 PM EST FYI, called patient to make year follow up. Patient declined appointment, stating that he gave up on that . Did not want to make an appointment. documented in this encounter Plan of Treatment Not on file documented as of this encounter Visit Diagnoses Not on filedocumented in this encounter Care Teams Tutorial Laboratory Supervisor Relationship Specialty Start Date End Date Jose Felder MD PCP - General Oncology/Hematology 01/19/18 documented as of this encounter
--- OUTSIDE RECORDS SUMMARY | 2024-08-31 08:04 | XMS_ITS | Encounter Summary ---
Author Organization [facility] Address [address] [place] [address] Care Team Providers Care Labor Operator Name Role Phone Wilner Paulson MD Primary Care Provider Unavailable Jose Felder MD Primary Care Provider Vladimir kapoor Encounter Details Date Type Department Care Team Description 04/16/2017 Wellness Visit Medical Records [address] [place] [address] Wilner Paulson MD Social History Tobacco Use Types Packs/Day Years [...] on filedocumented in this encounter Care Teams Labor Operator Relationship Specialty Start Date End Date Wilner Paulson MD PCP - General Internal Medicine 11/13/1601/02 Jose Felder MD PCP - General Oncology/Hematology 01/19/18 documented as of this encounter
--- OUTSIDE RECORDS SUMMARY | 2024-08-31 08:04 | XMS_ITS | Clinical Summary ---
Author Organization [facility] Address [address] [place] [address] Care Team Providers Care Garment Sorter Name Role Phone Jose Felder MD Primary Care Provider Vladimir kapoor Allergies Active Allergy Reactions Severity Noted Date Comments Seasonal Allergies 07/01/2017 Medications Medication Sig Dispensed Refills Start Date End Date Status omeprazole (PRILOSEC) 20 MG capsule Take 20 mg by mouth daily. Prn 0 Active CPAP Historical (HISTORICAL CPAP) Inhale into the lungs. Life supply-pressure 6-16 0 Active polyethylene glycol (COLYTE) 240 G solution Drink 8 oz every 15 mins over 2 sittings as directed. Finish the entire jug. 1 Bottle 0 06/24/2017 Active Enoxaparin Sodium (ENOXAPARIN) 30 MG/0.3ML SolutionIndications: History of DVT of lower extremity,History of pulmonary embolism,Heterozygou s factor V Leiden mutation (HCC),Preop examination Inject 30 mg into the skin 2 times daily for 2 days. Start/take as directed by the nurse. Last dose 08/04/17 in the morning. 10 Syringe 1 08/02/2017 Active simvastatin (ZOCOR) 40 MG tablet take 1 tablet by mouth once daily at bedtime 30 Tab 5 07/25/2017 Active lorazepam (ATIVAN) 0.5 MG tablet Take 1 Tab by mouth at bedtime as needed for Anxiety. 15 Tab 0 07/30/2017 Active tramadol (ULTRAM) 50 MG tablet Take 1 Tab by mouth daily. 28 Tab 0 10/20/2017 Active losartan (COZAAR) 25 MG tablet take 1 tablet by mouth once daily 30 Tab 5 10/23/2017 Active warfarin (COUMADIN) 5 MG tablet take 1/2 to 1 tablet by mouth once daily . TAKE AT THE SAME 30 Tab 1 11/25/2017 Active sumatriptan (IMITREX) 100 MG tablet take 1 tablet by mouth AT ONSET OF HEADACHE DAILY if needed 9 Tab 0 12/01/2017 Active Active Problems Problem Noted Date Sprain of sacroiliac ligament 03/18/2017 Nonallopathic lesion of sacral region Lumbosacral ligament sprain 03/18/2017 PLMD (periodic limb movement disorder) 0 01/23/2017 FDC current use of anticoagulant t herapy 12/02/2016 Essential hypertension 12/02/2016 Prediabetes 11/29/2016 Hyperlipidemia 11/29/2016 History of DVT of lower extremity 2016 Overview: R leg 03/2015 Obstructive sleep apnea mild AHI 8 11/29 Overview: RBMG Polysomnogram: Date 01/16/2017; Wt 210# SE 67%; SM 69%; REM 24%; RDI 8 (AHI 8), worse in nonREM (RDI 10 - AHI 9), Central apneas 2; Obstructive apneas 28; Mixed apneas 1; hypopneas 11; RERAs 2; average oxygen saturation 96% (lowest 89% - without saturations <88% for 5% or more of study); PLMs 101. 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 History of SVC syndrome Immunizations Name Administration Dates Next Due Influenza (> 6 Months) 05/31/2016 Influenza vaccine high dose age 65 and over 12/2016 Pneumoccoccal(Adult) Polysaccharide PPSV23 02/27 Pneumococcal Conjugate PCV-13 11/21/2014 Tdap 01/30/2017 Family History Medical History Relation Name Comments Diabetes Brother 2 X2 Diabetes Father age 92 , hyperlipid, blood cancer type 1 DM [Other] Son 2 Relation Name Status Comments Brother 1 Brother 2 Father Son 1 Son 2 Social History Tobacco Use Types Packs/Day Years Used Date Smoking Tobacco: Former Cigarettes Q uit: 2010 Smokeless Tobacco: Never Comments:smoked x40 yrs on a nd off Alcohol Use Standard Drinks/Week Comments Yes 0 (1 standard drink = 0.6 oz pur e alcohol) occasional Sex Assigned at Date Recorded Not on file Last Filed Vital Signs Vital Sign Reading Time Taken Comments Blood Pressure 135/84 09/02/2017 10:50 AM EST Pulse 94 09/02/2017 10:50 AM EST Temperature 36.3 ??C (97.4 ??F) 06/24/2017 10:[address] Respiratory Rate 12 09/02/2017 10:50 AM EST Oxygen Saturation 98% 09/02/2017 10:50 AM EST Inhaled Oxygen Concentration - - Weight 97.5 kg (215 lb) 09/02/2017 10:50 AM EST Height 182.9 cm (6') 09/02/2017 10:50 AM EST Body Mass Index 29.16 09/02/2017 10:50 AM EST Plan of Treatment Health Maintenance Due Date Last Done Comments Covid-19 Vaccine (#1) 1945 DIABETES: ANNUAL FOOT EXAM 1963 SHINGLES VACCINE (1 of 2) 1995 DIABETES: ANNUAL EYE EXAM 07/17/20172015 (External Completion) DIABETES: BLOOD SUGAR CONTRO L TEST (HGBA1C) 10/01/2017 07/01/2017, 02/24/2017, 11/11/2016 (External Completion) DIABETES: ANNUAL URINE PROTE IN TEST (MICROALBUMIN) 11/11/2017 11/11/2016 (External Complet ion of test per patient (Patient reports normal results)) DEPRESSION SCREEN 04/10/2018 04/10/2017 FALL RISK ASSESSMENT 04/10/2018 04/10/2017, 12/03/19 17 DIABETES/HEART DISEASE: JASON AL CHOLESTEROL (LDL) 07/01/2018 07/01/2017, 11/11/2016 (External Completion) INFLUENZA (#1) 2024 05/08/2017, 05/31/2016 BMI CHECK/ADVISE 08/04/2024 09/02/2017, 06/23/2017 DTAP/TDAP/TD (2 - Td or Tdap) 01/30/2027 01/30/2017 PNEUMOCOCCAL VACCINE Completed 02/27/2017, 11/22/19 15 Advance Directives For more information, please contact: [phone] Latest Code Status on File Code Status Date Activated Date Inactivated Comments Full Code 12/05/2016 12:37 PM MOLST Comp leted on 10/11/15-patient wants intubation, ventilation, dialysis artificial nutrition and hydration Care Teams Garment Sorter Relationship Specialty Start Date End Date Jose Felder MD PCP - General Oncology/Hematology 01/19/18
[2024-08-31 08:08] LABS: Prothrombin Time Whole Bld POC 18.8 sec (11.1-13.5); ~PT, ~INR - Anti Coag Clinic 1.6 (0.9-1.1)
--- NOTE | 2024-08-31 08:12 | MHC.OFFVISCO ---
Intake Intake Visit Reasons: Anticoagulation Allergies Seasonal Allergies Allergy (Intermediate, Verified 08/31/24 08:02) Cough venlafaxine Adverse Reaction (Intermediate, Verified 08/31/24 08:02) Headache Medication List - Last Reconciled 08/31/24 by Razia Rodgers, RN losartan 25 mg PO DAILY simvastatin 40 mg PO DAILY sumatriptan succinate 100 mg PO PRN warfarin 5 mg See Protocol PO DAILY Nursing Note Amb to [facility] feeling well S/P covid 08/20 and paxlovid 08/24, had increase dose warfarin 08/27 from 5mg to 7.5 Medications and supplements reviewed No other changes in health, diet, medications, or supplements, STS FEELING REAL GOOD NOW,sts he did stay at home x 10 days, appetite has improved and other covid sxs gone Denies any signs and symptoms of bleeding or bruising or clotting. Bleeding, bruising, clotting discussed as relates to low INR and S/P covid INR: 1.6 below therapeutic range Dose: Increase dose today to 7.5mg (vs 5mg), usual 7.5mg tomorrow, then increase from 5mg to 7.5mg Nutritional guidance given: no greens x 2 days (sts he had cooked broccoli yesterday) F/U INR: Sunday 09/03 Patient verbalizes understanding of instructions given Anti-Coag Initial Assessment Social Hx Patient Tobacco Use Status: Former Tobacco user Tobacco use type: Cigar alcohol intake: never Coding Level of Care Code Est Patient Level 1 Diagnoses Current use of anticoagulant therapy Z79.01 Time Spent (min) 15 Assessment & Plan Assessment & Plan (1) Current use of anticoagulant therapy: Code(s): Z79.01 - emergency management consultant (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
== END 2024-08-31 08:21 | disposition home or self-care (01) ==
LOC: HO.ACS 07:59
PROVIDERS: PCP Internal Medicine Medical Oncology; Visit Provider Internal Medicine
DX: Z79.01 Long term (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 (principal)

== ENCOUNTER → 2024-08-31 07:59 | Outpatient (BNVA) | payer MEDICARE, SELFPAY | PROVIDERS: PCP Internal Medicine Medical Oncology; Visit Provider Internal Medicine | DX: Z86.718 Personal history of other venous thrombosis and embolism (principal); Z79.01 Long term (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; Z51.81 Encounter for therapeutic drug level monitoring | CPT/HCPCS: 85610; 99211 ==

== ENCOUNTER 2024-09-03 09:13 | Outpatient (AMB) | payer MEDICARE, SELFPAY ==
[2024-09-03 09:35] LABS: Prothrombin Time Whole Bld POC 24.2 sec (11.1-13.5)
--- NOTE | 2024-09-03 09:35 | MHC.OFFVISCO ---
Intake Intake Visit Reasons: Anticoagulation Allergies Seasonal Allergies Allergy (Intermediate, Verified 09/03/24 09:25) Cough venlafaxine Adverse Reaction (Intermediate, Verified 09/03/24 09:25) Headache Medication List - Last Reconciled 09/03/24 by Razia López RN losartan 25 mg PO DAILY simvastatin 40 mg PO DAILY sumatriptan succinate 100 mg PO PRN warfarin 5 mg See Protocol PO DAILY Nursing Note INR: 2.0 in therapeutic range of 2-3 Medications and supplements reviewed No changes in health, diet, medications, or supplements, Denies any signs and symptoms of bleeding or bruising or clotting. Bleeding, bruising, clotting discussed Nutritional guidance given to avoid greens today Dose: increase today's dose to 7.5mg then 5mg X 5 days and 7.5mg X 2 days (Fri & Wed) F/U INR: 1 week Patient verbalizes understanding of instructions with read back given Anti-Coag Initial Assessment Social Hx Patient Tobacco Use Status: Former Tobacco user Tobacco use type: Cigar alcohol intake: never Coding Level of Care Code Est Patient Level 1 Diagnoses Current use of anticoagulant therapy Z79.01 Results AMB INR Fingerstick AMB INR Fingerstick 2.0 Last Edit by Razia López RN on 09/03/24 09:34 interface delay Assessment & Plan Assessment & Plan (1) Current use of anticoagulant therapy: Code(s): Z79.01 - jail (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
--- OUTSIDE RECORDS SUMMARY | 2024-09-03 09:43 | XMS_ITS | Encounter Summary ---
[facility] Organization [facility] Address [address] [place] [address] Care Team Providers Care Primary Clinician Name Role Phone Wilner Paulson MD Primary Care Provider Unavailable Jose Felder MD Primary Care Provider Vladimir kapoor Encounter Details Date Type Department Care Team Description 12/02/2016 Release of Information Medical Records [address] [place] [id number] Abstract, Provider Social History Tobacco Use Types [...] on filedocumented in this encounter Care Teams Primary Clinician Relationship Specialty Start Date End Date Wilner Paulson MD PCP - General Internal Medicine 11/13/1601/02 Jose Felder MD PCP - General Oncology/Hematology 01/19/18 documented as of this encounter
--- OUTSIDE RECORDS SUMMARY | 2024-09-03 09:43 | XMS_ITS | Encounter Summary ---
Author Organization [facility] Address [address] [place] [address] Care Team Providers Care Tube Repairer Name Role Phone Wilner Paulson MD Primary Care Provider Unavailable Jose Felder MD Primary Care Provider Vladimir kapoor Encounter Details Date Type Department Care Team Description 02/27/2017 Business Doc Medical Records [address] [place] [id number] Abstract, Provider Social History Tobacco Use Types [...] on filedocumented in this encounter Care Teams Tube Repairer Relationship Specialty Start Date End Date Wilner Paulson MD PCP - General Internal Medicine 11/13/1601/02 Jose Felder MD PCP - General Oncology/Hematology 01/19/18 documented as of this encounter
--- OUTSIDE RECORDS SUMMARY | 2024-09-03 09:43 | XMS_ITS | Encounter Summary ---
Author Organization [facility] Address [address] [place] [address] Care Team Providers Care Glass Inserter Name Role Phone Wilner Paulson MD Primary Care Provider Unavailable Jose Felder MD Primary Care Provider Vladimir kapoor Encounter Details Date Type Department Care Team Description 03/18/2017 Business Doc Medical Records [address] [place] [id number] Abstract, Provider Social History Tobacco Use Types [...] on filedocumented in this encounter Care Teams Glass Inserter Relationship Specialty Start Date End Date Wilner Paulson MD PCP - General Internal Medicine 11/13/1601/02 Jose Felder MD PCP - General Oncology/Hematology 01/19/18 documented as of this encounter
--- OUTSIDE RECORDS SUMMARY | 2024-09-03 09:43 | XMS_ITS | Encounter Summary ---
Author Organization [facility] Address [address] [place] [address] Care Team Providers Care Practice Or Student Teacher Name Role Phone Wilner Paulson MD Primary Care Provider Jose Hines MD Primary Care Provider Vladimir kapoor Reason for Visit * Reason Onset Date Comments TEST RESULTS 07/02/2017 Encounter Details Date Type Department Care Team Description 07/02/2017 Telephone Adult Medicine - [address] [address] Wilner Paulson MD TEST RESULTS Social History [...] advised of message below Wilner Paulson MD [facility] Adult Med Floor Nurse ? Please call patient to inform the results Please let him know the labs are good. His vitamin b12 is slightly low and he can take over the counter b12 tablets 500mcg once daily documented in this encounter Plan of Treatment Not on file documented as of this encounter Visit Diagnoses Not on filedocumented in this encounter Care Teams Practice Or Student Teacher Relationship Specialty Start Date End Date Wilner Paulson MD PCP - General Internal Medicine 11/13/1601/02 Jose Felder MD PCP - General Oncology/Hematology 01/19/18 documented as of this encounter
--- OUTSIDE RECORDS SUMMARY | 2024-09-03 09:43 | XMS_ITS | Encounter Summary ---
Author Organization [facility] Address [address] [place] [address] Care Team Providers Care Quality Checker Name Role Phone Wilner Paulson MD Primary Care Provider Unavailable Jose Felder MD Primary Care Provider Vladimir kapoor Encounter Details Date Type Department Care Team Description 04/16/2017 Wellness Visit Medical Records [address] [place] [address] Wilner Paulson MD Social History Tobacco Use [...] on filedocumented in this encounter Care Teams Quality Checker Relationship Specialty Start Date End Date Wilner Paulson MD PCP - General Internal Medicine 11/13/1601/02 Jose Felder MD PCP - General Oncology/Hematology 01/19/18 documented as of this encounter
--- OUTSIDE RECORDS SUMMARY | 2024-09-03 09:43 | XMS_ITS | Encounter Summary ---
Author Organization [facility] Address [address] [place] [address] Care Team Providers Care Computational Linguist Name Role Phone Wilner Paulson MD Primary Care Provider Unavailable Jose Felder MD Primary Care Provider Vladimir kapoor Encounter Details Date Type Department Care Team Description 04/10/2017 Wellness Visit Medical Records [address] [place] [address] Wilner Paulson MD Social History Tobacco Use [...] on filedocumented in this encounter Care Teams Computational Linguist Relationship Specialty Start Date End Date Wilner Paulson MD PCP - General Internal Medicine 11/13/1601/02 Jose Felder MD PCP - General Oncology/Hematology 01/19/18 documented as of this encounter
== END 2024-09-03 09:40 | disposition home or self-care (01) ==
LOC: HO.ACS 09:13
PROVIDERS: PCP Internal Medicine Medical Oncology; Visit Provider Internal Medicine
DX: Z79.01 Long term (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 (principal)

== ENCOUNTER 2024-09-17 08:43 | Outpatient (AMB) | payer MEDICARE, SELFPAY ==
--- NOTE | 2024-09-17 08:51 | MHC.OFFVISCO ---
Intake Intake Visit Reasons: Anticoagulation Allergies Seasonal Allergies Allergy (Intermediate, Verified 09/17/24 08:44) Cough venlafaxine Adverse Reaction (Intermediate, Verified 09/17/24 08:44) Headache Medication List - Last Reconciled 09/17/24 by Magda Matute RN losartan 25 mg PO DAILY simvastatin 40 mg PO DAILY sumatriptan succinate 100 mg PO PRN warfarin 5 mg See Protocol PO DAILY Nursing Note INR: 2.6- in therapeutic range of 2-3 Medications and supplements reviewed- pt states taking new medication- vague on name- will call acs when he returns home this med is listed as allergy for this pt- denies headache No changes in health, diet, medications, or supplements, Denies any signs and symptoms of bleeding or bruising or clotting. Bleeding, bruising, clotting discussed Nutritional guidance given Dose: 7.5mg x 2 , 5mg x 5 F/U INR: Patient verbalizes understanding of instructions given Anti-Coag Initial Assessment Social Hx Patient Tobacco Use Status: Former Tobacco user Tobacco use type: Cigar alcohol intake: never Coding Level of Care Code Est Patient Level 1 Diagnoses Current use of anticoagulant therapy Z79.01 Assessment & Plan Assessment & Plan (1) Current use of anticoagulant therapy: Code(s): Z79.01 - nursing home (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
[2024-09-17 08:52] LABS: Prothrombin Time Whole Bld POC 31.6 sec (11.1-13.5); ~PT, ~INR - Anti Coag Clinic 2.6 (0.9-1.1)
--- OUTSIDE RECORDS SUMMARY | 2024-09-17 08:59 | XMS_ITS ---
Author Organization Jose Felder III, MD Address [address] [place] [address] [address] [place] [address] Care Team Providers Care Network Analyst Name Role Phone Jose Felder Primary Care Provider [phone] Medications Medication SIG (Take, Route, Frequency, Duration) Notes Start Date End Date Status Paxlovid (300/100) 20 x 150 MG & 10 x 100MG 3 tablets Orally Twice a day for 5 days gfr above 60 06-07-2034 08/23/2024 Active Social History Sex Assigned At : Social History Observation Description Sex Assigned At Male Encounters Encounter Location Date Provider Diagnosis Jose Felder III, MD [address] [place] [address] [place] [address] 08/23/2024 Jose Felder Plan Of Treatment Medication Medication Name Sig Start Date Stop Date Notes Paxlovid (300/100) 20 x 150 MG & 10 x 100MG 3 tablets Orally Twice a day for 5 days 08/23/2024 gfr above 60 06-07-2034 Next Appt Details Provider Name:Jose Felder, 10/04/2024 02:30:00 PM, [address] [place] [address] [place], [address], Progress Notes * Jem QUINTEROSDOB:1945 ( 79 yo M)Acc No.[id number]:08/23/2024 Patient:?Jem QUINTEROS :1945???Age:79 Y???Sex:Male Address: [place] [address] * Refills? Start Paxlovid (300/100) Tablet Therapy Pack, 20 x 150 MG & 10 x 100MG, Orally, 30, 3 tablets, Twice a day, 5 days, Refills=0 * true * Date:? Generated for Frandy mittal/Apple/eTtobinsmitting on:?09/17/2024 08:59 AM EST
--- OUTSIDE RECORDS SUMMARY | 2024-09-17 08:59 | XMS_ITS ---
Author Organization Jose Felder III, MD Address [address] [place] [address] [address] [place] [address] Care Team Providers Care Anesthesiology Resident Name Role Phone Jose Felder Primary Care Provider [phone] REASON FOR VISIT Rx Request Medications Medication SIG (Take, Route, Fr equency, Duration) Notes Start Date End Date Status Warfarin Sodium 5 MG 1 tablet Orally Onc e a day for 210 days Active Social History Sex Assigned At : Social History Observation Description Sex Assigned At Male Encounters Encounter Location Date Provider Diagnosis Jose Felder III, MD [address] [place] [address] [address] [place] [address] 08/31/2024 Jose Felder COVID-19 virus infection U07.1 Assessments Encounter Date Diagnosis (ICD Code) Assessment Notes Treatment Notes Treatment Clinical Notes 08/31/2024 COVID-19 virus infection (ICD-10 - U07.1) I have prescribed Paxlovid And arrange followup telephone calls every 48 hours. He seems stable at this time. Plan Of Treatment Medication Medication Name Sig Start Date Stop Date Notes Warfarin Sodium 5 MG 1 tablet Orally Onc e a day for 210 days Next Appt Details Provider Name:Jose Felder, 10/04/2024 02:30:00 PM, [address] [place] [address] [place], [address], Progress Notes * Shashank QUINTEROS:1945 ( 79 yo M)Acc No.[id number]:08/31/2024 Patient:Jem SZYMANSKI :1945???Age:79 Y???Sex:Male Address: [place] [address] * Refills? Refill Warfarin Sodium Tablet, 5 MG, Orally, 210 Tablet, 1 tablet, Once a day, 210 days, Refills=1 * true * Date:? Generated for Frandy mittal/Apple/eTransmitting on:?09/17/2024 08:58 AM EST
--- OUTSIDE RECORDS SUMMARY | 2024-09-17 08:59 | XMS_ITS ---
Author Organization Jose Felder III, MD Address [address] [place] [address] [address] [place] [address] Care Team Providers Care Cell Changer Name Role Phone Jose Felder Primary Care Provider REASON FOR VISIT Rx request Medications Medication SIG (Take, Route, Fr equency, Duration) Notes Start Date End Date Status Warfarin Sodium 5 MG 1 1/2 tablet Orally Once a day for 30 days Active Social History Sex Assigned At : Social History Observation Description Sex Assigned At Male Encounters Encounter Location Date Provider Diagnosis Jose Felder III, MD [address] [place] [address] [address] [place] [address] 08/31/2024 Jose Felder COVID-19 virus infection U07.1 Assessments Encounter Date Diagnosis (ICD Code) Assessment Notes Treatment Notes Treatment Clinical Notes 08/31/2024 COVID-19 virus infection (ICD-10 - U07.1) I have prescribed Paxlovid And arrange followup telephone calls every 48 hours. He seems stable at this time. Plan Of Treatment Medication Medication Name Sig Start Date Stop Date Notes Warfarin Sodium 5 MG 1 1/2 tablet Orally Once a day for 30 days Next Appt Details Provider Name:Jose Felder, 10/04/2024 02:30:00 PM, [address] [place] [address] [place], [address], Progress Notes * Jem QUINTEROSDOB:1945 ( 79 yo M)Acc No.[id number]:08/31/2024 Patient:?Jem QUINTEROS :1945???Age:79 Y???Sex:Male Address: [place] [address] * Refills? Refill Warfarin Sodium Tablet, 5 MG, Orally, 45, 1 1/2 tablet, Once a day, 30 days, Refills=1 * true * Date:? Generated for Frandy mittal/Apple/eTransmitting on:?09/17/2024 08:59 AM EST
== END 2024-09-17 09:01 | disposition home or self-care (01) ==
LOC: HO.ACS 08:43
PROVIDERS: PCP Internal Medicine Medical Oncology; Visit Provider Internal Medicine
DX: Z79.01 Long term (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 (principal)

== ENCOUNTER → 2024-09-17 08:43 | Outpatient (BNVA) | payer MEDICARE, SELFPAY | PROVIDERS: PCP Internal Medicine Medical Oncology; Visit Provider Internal Medicine | DX: Z86.718 Personal history of other venous thrombosis and embolism (principal); Z79.01 Long term (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; Z51.81 Encounter for therapeutic drug level monitoring | CPT/HCPCS: 85610; 99211 ==

== ENCOUNTER 2024-09-24 08:22 | Outpatient (AMB) | payer MEDICARE, SELFPAY ==
--- OUTSIDE RECORDS SUMMARY | 2024-09-24 08:34 | XMS_ITS ---
Author Organization Jose Felder III, MD Address [address] [place] [address] [address] [place] [address] Care Team Providers Care Anatomic Pathology Manager Name Role Phone Jose Felder Primary Care Provider REASON FOR VISIT Rx Request Medications Medication SIG (Take, Route, Fr equency, Duration) Notes Start Date End Date Status Warfarin Sodium 5 MG 1 tablet Orally Onc e a day for 210 days Active Social History Sex Assigned At : Social History Observation Description Sex Assigned At Male Encounters Encounter Location Date Provider Diagnosis Jose Felder III, MD [address] [place] [address] [address] [place] [address] 08/31/2024 Jose Felder COVID-19 virus infection U07.1 [...] Details Provider Name:Jose Felder, 10/04/2024 02:30:00 PM, [address] [place] [address] [place], [address], Progress Notes * Shashank QUINTEROS:1945 ( 79 yo M)Acc No.[id number]:08/31/2024 Patient:Jem SZYMANSKI :1945???Age:79 Y???Sex:Male Address: [place] [address] * Refills? Refill Warfarin Sodium Tablet, 5 MG, Orally, 210 Tablet, 1 tablet, Once a day, 210 days, Refills=1 * true * Date:? Generated for Frandy mittal/Apple/eTransmitting on:?09/24/2024 08:33 AM EST
[2024-09-24 08:35] LABS: Prothrombin Time Whole Bld POC 21.8 sec (11.1-13.5); ~PT, ~INR - Anti Coag Clinic 1.8 (0.9-1.1)
--- NOTE | 2024-09-24 08:35 | MHC.OFFVISCO ---
Intake Intake Visit Reasons: Anticoagulation Allergies Seasonal Allergies Allergy (Intermediate, Verified 09/24/24 08:22) Cough venlafaxine Adverse Reaction (Intermediate, Verified 09/24/24 08:22) Headache Medication List - Last Reconciled 09/24/24 by Razia López RN losartan 25 mg PO DAILY simvastatin 40 mg PO DAILY sumatriptan succinate 100 mg PO PRN venlafaxine 100 mg PO DAILY warfarin 5 mg See Protocol PO DAILY Nursing Note INR 1.8?out of therapeutic range of 2-3 Medications and supplements reviewed Patient status: well Medications or supplements: no changes Diet: usual diet for pt Denies any signs and symptoms of bleeding or clotting or unusual bruising Bleeding, bruising, clotting discussed Nutritional guidance given: to avoid greens for 2 days Dose: increase today's dose to7.5mg(5mg) then 5mg X 5 days and 7.5mg X 2 days F/U INR Date : 2 weeks?? Patient verbalizing understanding of instructions given. Anti-Coag Initial Assessment Social Hx Patient Tobacco Use Status: Former Tobacco user Tobacco use type: Cigar alcohol intake: never Coding Level of Care Code Est Patient Level 1 Diagnoses Current use of anticoagulant therapy Z79.01 Results AMB INR Fingerstick AMB INR Fingerstick 1.8 Last Edit by Razia López RN on 09/24/24 08:31 interface delay Assessment & Plan Assessment & Plan (1) Current use of anticoagulant therapy: Code(s): Z79.01 - technical instructor course developer (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
--- OUTSIDE RECORDS SUMMARY | 2024-09-24 08:35 | XMS_ITS ---
Author Organization Jose Felder III, MD Address [address] [facility] [place] [address] [place] [place] [address] Care Team Providers Care Baggage Screener Name Role Phone Jose Felder Primary Care Provider [phone] REASON FOR VISIT Message Social History Sex Assigned At : Social History Observation Description Sex Assigned At Male Encounters Encounter Location Date Provider Diagnosis Jose Felder III, MD [address] [place] [address] [place] [address] 09/17/2024 Jose Felder Plan Of Treatment Next Appt Details Provider Name:Jose Felder, 10/04/2024 02:30:00 PM, [address] [place] [address] [place], [address], Progress Notes * Jem QUINTEROSDOB:1945 ( 79 yo M)Acc No.[id number]:09/17/2024 Patient:?Jem QUINTEROS :1945???Age:79 Y???Sex:Male Address:[place] [address] * true * Date:? Generated for Printi ng/Faxing/eTransmitting on:?09/24/2024 08:34 AM EST
--- OUTSIDE RECORDS SUMMARY | 2024-09-24 08:35 | XMS_ITS ---
Author Organization Jose Felder III, MD Address [address] [place] [address] [address] [place] [address] Care Team Providers Care Glassware Finisher Name Role Phone Jose Felder Primary Care Provider [phone] REASON FOR VISIT Rx request Medications Medication SIG (Take, Route, Fr equency, Duration) Notes Start Date End Date Status Warfarin Sodium 5 MG 1 1/2 tablet Orally Once a day for 30 days Active Social History Sex Assigned At : Social History Observation Description Sex Assigned At Male Encounters Encounter Location Date Provider Diagnosis Jose Felder III, MD [address] [place] [address] [address] [place] [address] 08/31/2024 Jose Felder COVID-19 virus infection U07.1 [...] Details Provider Name:Jose Felder, 10/04/2024 02:30:00 PM, [address] [place] [address] [place], [address], Progress Notes * Jem QUINTEROSDOB:1945 ( 79 yo M)Acc No.[id number]:08/31/2024 Patient:?Jem QUINTEROS :1945???Age:79 Y???Sex:Male Address: [place] [address] * Refills? Refill Warfarin Sodium Tablet, 5 MG, Orally, 45, 1 1/2 tablet, Once a day, 30 days, Refills=1 * true * Date:? Generated for Frandy mittal/Apple/eTransmitting on:?09/24/2024 08:34 AM EST
== END 2024-09-24 08:37 | disposition home or self-care (01) ==
LOC: HO.ACS 08:22
PROVIDERS: PCP Internal Medicine Medical Oncology; Visit Provider Internal Medicine
DX: Z79.01 Long term (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 (principal)

== ENCOUNTER → 2024-09-24 08:22 | Outpatient (BNVA) | payer MEDICARE, SELFPAY | PROVIDERS: PCP Internal Medicine Medical Oncology; Visit Provider Internal Medicine | DX: Z86.718 Personal history of other venous thrombosis and embolism (principal); Z79.01 Long term (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; Z51.81 Encounter for therapeutic drug level monitoring | CPT/HCPCS: 85610; 99211 ==

== ENCOUNTER 2024-10-04 05:58 | Outpatient (REF) | payer MEDICARE, SELFPAY ==
[2024-10-04 06:10] LABS: MANUAL DIFF FLAG NO
[2024-10-04 07:09] LABS: Basophils Absolute Auto 0.1 X10*3/uL (0.0-0.2); Eosinophils Absolute Auto 0.1 X10*3/uL (0.0-0.4); Eosinophils Percent Auto 1.3 % (0-4); Hematocrit 43.6 % (42.0-52.0); Hemoglobin 14.6 g/dl (14.0-18.0); Imm Gran Abs Auto 0.03 X10*3/uL (0.00-0.03); Imm Gran Pct Auto 0.3 % (0.0-0.4); Lymphocytes Absolute Auto 3.7 X10*3/uL (1.2-4.9); Lymphocytes Percent Auto 35.5 % (20-40); Mean Corpuscular HGB Conc 33.5 g/dl (31.0-36.0); Mean Corpuscular Hemoglobin 31.1 pg (27.0-33.0); Mean Corpuscular Volume 92.8 fL (80.0-98.0); Mean Platelet Volume 11.4 fL (9.4-12.4); Monocytes Percent Auto 9.2 % (2-11); Neutrophils Absolute Auto 5.5 x10*3/uL (2.0-8.3); Neutrophils Percent Auto 52.7 % (45-73); Platelet Count 279 X10*3/uL (160-400); Red Cell Distribution Width 14.3 % (11.0-16.0); White Blood Count 10.5 X10*3/uL (4.8-10.8)
[2024-10-04 07:36] LABS: Alanine Aminotransferase 23 U/L (0-40); Albumin Level 4.1 g/dL (3.5-5.0); Alkaline Phosphatase 72 U/L (39-117); Anion Gap 12 (12-20); Aspartate Amino Transferase 25 U/L (5-37); Bilirubin Total 0.6 mg/dL (0.0-1.0); Blood Urea Nitrogen 22 mg/dL (9-16); Calcium 8.8 mg/dL (8.4-10.2); Carbon Dioxide 28 mmol/L (22-29); Chloride 109 mmol/L (96-108); Cholesterol 164 mg/dL (<200); Estimated Glomerular Filt Rate > 60; Glucose Fasting 105 mg/dL (60-99); HDL Cholesterol 44 mg/dL (>40); LDL Cholesterol Calculated 104 mg/dL (<100); Potassium 4.6 mmol/L (3.3-5.1); Sodium 144 mmol/L (135-145); Total Protein 7.5 g/dL (6.5-8.0); Triglycerides 81 mg/dL (<150)
== END 2024-10-04 05:59 | disposition home or self-care (01) ==
LOC: HO.LAB 05:58
PROVIDERS: PCP Internal Medicine Medical Oncology; Visit Provider Internal Medicine Medical Oncology
DX: C91.10 Chronic lymphocytic leukemia of B-cell type not having achieved remission (principal); I10 Essential (primary) hypertension; E66.3 Overweight; Z79.01 Long term (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
CPT/HCPCS: 36415; 80053; 80061; 85025; 85610; 99211

== ENCOUNTER 2024-10-04 08:38 | Outpatient (AMB) | payer MEDICARE, SELFPAY ==
[2024-10-04 08:47] LABS: Prothrombin Time Whole Bld POC 23.8 sec (11.1-13.5)
--- NOTE | 2024-10-04 08:58 | MHC.OFFVISCO ---
Intake Intake Visit Reasons: Anticoagulation Allergies Seasonal Allergies Allergy (Intermediate, Verified 09/24/24 08:22) Cough venlafaxine Adverse Reaction (Intermediate, Verified 09/24/24 08:22) Headache Nursing Note INR: 2.0 in therapeutic range Medications and supplements reviewed pt states he noticed he mixed up his meds similar in size color and shape -with warfarin - not sure how many, maybe a few weeks, He may or may not stay on venlafaxine for sleep - on low dose - can raise the INR ( he believes he mixed that up with warfarin) - suggested use a am and pm box. Denies any signs and symptoms of bleeding or bruising or clotting. Bleeding, bruising, clotting discussed Nutritional guidance given- cont to eat a mix of fruits and vegetables Dose: 7.5mg x 2 days/ 5mg x 5 days F/U INR: 2 weeks is stable resume monthly INR Patient verbalizes understanding of instructions given with read back Anti-Coag Initial Assessment Social Hx Patient Tobacco Use Status: Former Tobacco user Tobacco use type: Cigar alcohol intake: never Questionnaires HAS-BLED Does the patient had uncontrolled Hypertension?: No Does the patient have renal disease?: No Does the patient have liver disease?: No Does the patient have a history of stroke?: No Has the patient had major bleeding or predisposition to bleeding?: Yes Does the patient have labile INRs?: Yes Is the patient over 65 years of age?: Yes Is the patient on medications that gives them a predisposition to bleeding?: Yes Does the patient use alcohol?: Yes HAS-BLED Score: 5 CHADSVASC Age: 75 or over Gender: Male Does the patient have a history of CHF?: No Does the patient have a history of Hypertension?: Yes Does the patient have a history of Stroke/TIA/Thromboembolism?: Yes Does the patient have a history of Vascular Disease (prior DE, PAD or aortic plaque)?: Yes Does the patient have a history of Diabetes?: Yes (diet controlled) CHADS VACS Score: 7 Marine Prediction Score Rsk VTE Active Cancer: No (in remission) Previous VTE, excluding superficial vein thrombosis: Yes Reduced mobility: No Already known Thrombophilic Condition: No With-in last month Trauma and/or Surgery: No Elderly 70 year or older: Yes Heart and/or Respiratory Failure: No Acute Myocardial infarction and/or Ischemic Stroke: No Acute Infection and/or Rheumatologic Disorder: No Obesity (BMI 30 or greater): No Ongoing Hormonal Treatment: No Score: 4 Marine Score less than 4; Low Risk of VTE Marine Score 4 or greater; High Risk of VTE Coding Level of Care Code Est Patient Level 1 Diagnoses Current use of anticoagulant therapy Z79.01 Results AMB INR Fingerstick AMB INR Fingerstick 2.0 Last Edit by Brenda Trimble RN on 10/04/24 08:53 MANUAL ENTRY Assessment & Plan Assessment & Plan (1) Current use of anticoagulant therapy: Code(s): Z79.01 - long term acute care registered nurse (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
--- OUTSIDE RECORDS SUMMARY | 2024-10-04 09:09 | XMS_ITS | Encounter Summary ---
Author Organization [facility] Address [address] [place] [address] Care Team Providers Care Dean Of Instruction Name Role Phone Jose Felder MD Primary Care Provider Vladimir kapoor Reason for Visit * Reason Onset Date Comments Appointment Cancelled 06/30/2018 Encounter Details Date Type Department Care Team Description 06/30/2018 Telephone Pulmonology - [place] [address] [facility] [address] [place] [address] Tanisha Gonzalez, [facility] [address] [place] [address] Appointment Cancelled Social History Tobacco Use Types [...] on filedocumented in this encounter Care Teams Dean Of Instruction Relationship Specialty Start Date End Date Jose Felder MD PCP - General Oncology/Hematology 01/19/18 documented as of this encounter
--- OUTSIDE RECORDS SUMMARY | 2024-10-04 09:09 | XMS_ITS | Encounter Summary ---
[facility] Organization [facility] Address [address] [place] [address] Care Team Providers Care Inside Steward/Stewardess Name Role Phone Wilner Paulson MD Primary Care Provider Unavailable Jose Felder MD Primary Care Provider Vladimir kapoor Encounter Details Date Type Department Care Team Description 12/02/2016 Release of Information Medical Records [address] [place] [address] Abstract, Provider Social History Tobacco Use Types [...] on filedocumented in this encounter Care Teams Inside Steward/Stewardess Relationship Specialty Start Date End Date Wilner Paulson MD PCP - General Internal Medicine 11/13/1601/02 Jose Felder MD PCP - General Oncology/Hematology 01/19/18 documented as of this encounter
--- OUTSIDE RECORDS SUMMARY | 2024-10-04 09:09 | XMS_ITS | Encounter Summary ---
Author Organization [facility] Address [address] [place] [address] Care Team Providers Care Director Of Quantitative Research Name Role Phone Wilner Paulson MD Primary Care Provider Jose Hines MD Primary Care Provider Vladimir kapoor Reason for Visit * Reason Onset Date Comments [facility] 06/24/2017 Encounter Details Date Type Department Care Team Description 06/24/2017 Telephone Gastroenterology - [address] [address] Guicho Bravo MD [facility] Social History Tobacco Use Types Packs/Day Years Used Date Smoking Tobacco: Former Cigarettes Q uit: 2010 Smokeless Tobacco: Never Comments:smoked x40 yrs on a nd off Alcohol Use Standard Drinks/Week Comments Yes 0 (1 standard drink = 0.6 oz pur e alcohol) occasional Sex Assigned at Date Recorded Not on file documented as of this encounter Miscellaneous Notes * Telephone Encounter - Luis Antony MD - 08/26/2017 9:05 AM EST Thank you. * Telephone Encounter - Alexa Gore - 08/26/2017 8:56 AM EST I spoke to patient. He said he did forget about this. He said he will get the report And have it sent here. * Telephone Encounter - Luis Antony MD - 08/25/2017 5:07 PM EST Thank you. Would not repeat. He has not submitted to me his previous upper endoscopy records, as he had promised. Please contacthim and request that he do so CRYSTAL. If he cannot do so, then I will need to see him again in the office because of his reflux. * Telephone Encounter - Kimberly Rain - 08/25/2017 3:12 PM EST Procedure report in inbox * Telephone Encounter - Kimberly Rain - 07/16/2017 9:38 AM EST Received a call from [facility] stating this patient will need to be rescheduled because they are unableto fill procedures for this day. Patient informed he is rescheduled for 08/15 at 6:30 arrival 7:30 procedure * Telephone Encounter - Kimberly Rain - 06/24/2017 3:56 PM EST * Telephone Encounter - Kimberly Rain - 06/24/2017 11:50 AM EST Pt. Has been referred to by for Colon at [facility] on 08/05/2017. P6:30 am arrival time, 7:30 procedure time. Demo insurance and booking faxed to [facility]ajas recieved documented in this encounter Plan of Treatment Not on file documented as of this encounter Visit Diagnoses Not on filedocumented in this encounter Care Teams Director Of Quantitative Research Relationship Specialty Start Date End Date Wilner Paulson MD PCP - General Internal Medicine 11/13/1601/02 Jose Felder MD PCP - General Oncology/Hematology 01/19/18 documented as of this encounter
--- OUTSIDE RECORDS SUMMARY | 2024-10-04 09:09 | XMS_ITS | Clinical Summary ---
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 History of SVC syndrome Immunizations Name Administration [...] Advance Directives For more information, please contact: [phone] Latest Code Status on File Code Status Date Activated Date Inactivated Comments Full Code 12/05/2016 12:37 PM MOLST Comp leted on 10/11/15-patient wants intubation, ventilation, dialysis artificial nutrition and hydration Care Teams Band Maker Relationship Specialty Start Date End Date Jose Felder MD PCP - General Oncology/Hematology 01/19/18
--- OUTSIDE RECORDS SUMMARY | 2024-10-04 09:09 | XMS_ITS | Encounter Summary ---
Author Organization [facility] Address [address] [place] [address] Care Team Providers Care Lollypop Machine Operator Name Role Phone Wilner Paulson MD Primary Care Provider Unavailable Jose Felder MD Primary Care Provider Vladimir kapoor Encounter Details Date Type Department Care Team Description 03/18/2017 Business Doc Medical Records [address] [place] [id number] Abstract, Provider Social History Tobacco Use Types [...] on filedocumented in this encounter Care Teams Lollypop Machine Operator Relationship Specialty Start Date End Date Wilner Paulson MD PCP - General Internal Medicine 11/13/1601/02 Jose Felder MD PCP - General Oncology/Hematology 01/19/18 documented as of this encounter
--- OUTSIDE RECORDS SUMMARY | 2024-10-04 09:10 | XMS_ITS | Encounter Summary ---
Author Organization [facility] Address [address] [place] [address] Care Team Providers Care Helicopter Pilot Name Role Phone Wilner Paulson MD Primary Care Provider Unavailable Jose Felder MD Primary Care Provider Vladmiir kapoor Encounter Details Date Type Department Care Team Description 04/16/2017 Wellness Visit Medical Records [address] [place] [id number] Wilner Paulson MD Social History Tobacco Use [...] on filedocumented in this encounter Care Teams Helicopter Pilot Relationship Specialty Start Date End Date Wilner Paulson MD PCP - General Internal Medicine 11/13/1601/02 Jose Felder MD PCP - General Oncology/Hematology 01/19/18 documented as of this encounter
--- OUTSIDE RECORDS SUMMARY | 2024-10-04 09:10 | XMS_ITS | Encounter Summary ---
Author Organization [facility] Address [address] [place] [address] Care Team Providers Care Digital Account Supervisor Name Role Phone Wilner Paulson MD Primary Care Provider Unavailable Jose Felder MD Primary Care Provider Vladimir kapoor Encounter Details Date Type Department Care Team Description 04/10/2017 Wellness Visit Medical Records [address] [place] [id number] Wilner Paulson MD Social History Tobacco Use [...] on filedocumented in this encounter Care Teams Digital Account Supervisor Relationship Specialty Start Date End Date Wilner Paulson MD PCP - General Internal Medicine 11/13/1601/02 Jose Felder MD PCP - General Oncology/Hematology 01/19/18 documented as of this encounter
== END 2024-10-04 09:06 | disposition home or self-care (01) ==
LOC: HO.ACS 08:38
PROVIDERS: PCP Internal Medicine Medical Oncology; Visit Provider Internal Medicine
DX: Z79.01 Long term (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 (principal)

== ENCOUNTER 2024-10-18 08:06 | Outpatient (AMB) | payer MEDICARE, SELFPAY ==
--- OUTSIDE RECORDS SUMMARY | 2024-10-18 08:11 | XMS_ITS ---
Author Organization Jose Felder III, MD Address [address] [place] [address] Care Team Providers Care Supervisor Blast Furnace Name Role Phone Jose Felder Primary Care Provider [phone] Allergies Allergen (clinical drug ingredient) Drug/Non Drug [...] Provider Speciality Internal M edicine Referred Provider [facility] [place] ([place]) Referred Provider Specialty Dermatology Referral Priority Routine REASON FOR VISIT Skin [...] has it been since you last smoked? Renettaa ter than 10 years Additional Findings: Tobacco non-user Ex-cigaret te smoker Problems Problem Type SNOMED Code ICD Code Onset Dates Problem Status W/U Status Risk Notes Problem [id number] Skin lesion of face (L98.9) Active confirmed [...] Date Provider Diagnosis Jose Felder III, MD [address] [place] [address] [place] [address] 10/15/2024 Jose Felder Skin lesion of face [...] eyes and nasal congestion. He is using sbvu-jlj-vplcsee medication. I recommended fluticasone and loratadine. 10/15/2024 [...] New Lesion of Nose[facility] Next Appt Details Follow Up: As Scheduled, [place] son: OV Provider Name:Jose Felder, 02/03/2025 10:00:00 AM, [address] [facility] [address], [place], [address], Provider Name:Jose Felder, 10/05/2025 02:30:00 PM, [address] [facility] [facility] [facility] [address], [place], [address], Progress Notes * Jem QUINTEROSDOB:1945 ( 79 yo M)Acc No.[id number]:10/15/2024 Progress Notes Patient:?Jem QUINTEROS Provider:?Jose Felder MD :1945???Age:79 Y???Sex:Male Darius e:10/15/2024 [facility] Subjective: * Chief Complaints: * ???Skin lesion, bridge of no se * HPI: ???COVID-19 Screening:? He returns to the office before his scheduled visit because he has noticed a lesion on the bridge of his nose.? He is concerned about skin cancer.? On examination there was an oval-shaped 3 mm area of skin distortion on the bridge of his upper nose consistent with an actinic keratosis.? He was referred to dermatology for treatment.? This area has not been present in the past.? He is anticoagullated but has no bleeding.? He denies any chest pain or shortness of breath.? He has no new complaints and has been compliant with all his medications. ?Questions?Have you had any new onset fever, chills, cough, congestion, sore throat, shortness of breath, muscle aches??No * ROS:?General/Constitutional:?pain?only normal aches and pains.?Chills?denies.?Fatigue?admits.?Fever?denies.?ENT:?Decreased hearing?mild.?Respiratory:?Cough?denies.?Cardiovascular:?Chest pain with exertion?denies.?Dyspnea on exertion?denies.?Shortness of breath?denies.?Gastrointestinal:?Constipation?occasional.?Decreased appetite?denies.?Diarrhea?denies.?Heartburn?denies.?Nausea?denies.?Rectal bleeding?denies.?Vomiting?denies.?Hematology:?bruising?denies.?petechiae?denies.?Swollen glands?none have been noted.?Genitourinary:?Frequent urination?twice a night.?Musculoskeletal:?Muscle aches?denies.?Painful joints?denies.?Sciatica?denies.?Weakness?denies.?Skin:?Itching?denies.?Rash?denies.?Skin lesion(s)?Recent onset bridge of nose.?Neurologic:?Difficulty speaking?denies.?Dizziness?denies.?Headache?denies.?Low back pain?denies.?Psychiatric:?Depressed mood?denies.? * Medical History:? [...] until 89, father until 89. 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 The patient is retired and does not mention any smoking, drinking, or drug use habits. He does not mention his diet, exercise habits, work environment, or living situation. * Medications:?TakingLosartan Potassium 25 MG Tablet as directed Orally [...] reviewed and reconciled with the patient * Allergies:?SeasonaleNo Known Drug Allergyno[Allergies Verified] Objective: * Vitals:?Ht: 71, Wt:195, BMI: 27.19, BP:130/72, HR:91, Temp:98.4, Wt-k.45. * ???Past Orders: Lab:Lipid Panel * Collection Date 10/04/2024 06/07/2024 01/26/2024 Collection Time 06:09 AM 06:36 AM 06:20 AM Order Date 10/04/2024 06/07/2024 01/26/2024 Triglycerides 81 (Ref Range: <150 mg/dL) 66 (Ref Range: <150 mg/dL) 59 (Ref Range: <150 mg/dL) Cholesterol 164 (Ref Range: <200 mg/dL) 147 (Ref Range: <200 mg/dL) 138 (Ref Range: <200 mg/dL) LDL Cholesterol Calculated 104?H (Ref Range: <100 mg/dL) 91 (Ref Range: <100 mg/dL) 85 (Ref Range: <100 mg/dL) HDL Cholesterol 44 (Ref Range: >40 mg/dL) 43 (Ref Range: >40 mg/dL) 42 (Ref Range: >40 mg/dL) * Lab:Comprehensive [place]. [facility] [facility] Fast * Collection Date 10/04/2024 06/07/2024 [...] mmol/L) 4.3 (Ref Range: 3.3-5.1 mmol/L) Chloride 109?H (Ref Range: 96-108 mmol/L) 108 (Ref Range: 96-108 mmol/L) 109?H (Ref Range: 96-108 mmol/L) Carbon Dioxide 28 (Ref Range: 22-29 mmol/L) 27 (Ref Range: 22-29 mmol/L) 26 (Ref Range: 22-29 mmol/L) Anion Gap 12 (Ref Range: 12-20) 14 (Ref Range: 12-20) 11?L (Ref Range: 12-20) Blood Urea Nitrogen 22?H (Ref Range: 9-16 mg/dL) 20?H (Ref Range: 9-16 mg/dL) 23?H (Ref Range: 9-16 mg/dL) Creatinine 0.77 (Ref Range: 0.5-1.4 mg/dL) 0.79 (Ref Range: 0.5-1.4 mg/dL) 0.76 (Ref Range: 0.5-1.4 mg/dL) Estimated Glomerular Filt Rate > 60 > 60 > 60 Glucose Fasting 105?H (Ref Range: 60-99 mg/dL) 98 (Ref Range: 60-99 mg/dL) 105?H (Ref Range: 60-99 mg/dL) Calcium 8.8 (Ref [...] Blood Count 4.70 (Ref Range: 4.60-5.80 X10*6/uL) 4.37?L (Ref Range: 4.60-5.80 X10*6/uL) 4.35?L (Ref Range: 4.60-5.80 X10*6/uL) Hemoglobin 14.6 (Ref Range: 14.0-18.0 g/dl) 13.5?L (Ref Range: 14.0-18.0 g/dl) 13.3?L (Ref Range: 14.0-18.0 g/dl) Hematocrit 43.6 (Ref Range: 42.0-52.0 %) 39.9?L (Ref Range: 42.0-52.0 %) 39.6?L (Ref Range: 42.0-52.0 %) Mean Corpuscular Volume [...] 0.0-0.4 %) 0.4 (Ref Range: 0.0-0.4 %) 0.6?H (Ref Range: 0.0-0.4 %) Lymphocytes Percent Auto [...] Abs Auto 0.03 (Ref Range: 0.00-0.03 X10*3/uL) 0.04?H (Ref Range: 0.00-0.03 X10*3/uL) 0.05?H (Ref Range: 0.00-0.03 X10*3/uL) Lymphocytes Absolute Auto [...] 08/06/2024 07/23/2024 Prothrombin Time Whole Bld POC 23.8?H (Ref Range: 11.1-13.5 sec) 21.8?H (Ref Range: 11.1-13.5 sec) 31.6?H (Ref Range: 11.1-13.5 sec) 24.2?H (Ref Range: 11.1-13.5 sec) 18.8?H (Ref Range: 11.1-13.5 sec) 25.3?H (Ref Range: 11.1-13.5 sec) 21.4?H (Ref Range: 11.1-13.5 sec) * Lab:INR WHOLE BLOOD POC * Collection Date 10/04/2024 09/24/2024 09/17/2024 09/03/2024 08/31/2024 08/06/2024 07/23/2024 Collection Time 08:45 AM 08:25 AM 08:51 AM 09:27 AM 08:06 AM 08:21 AM 08:24 AM Order Date 10/04/2024 09/24/2024 09/17/2024 09/03/2024 08/06/2024 07/23/2024 INR WHOLE BLOOD POC 2.0?H (Ref Range: 0.9-1.1) 1.8?H (Ref Range: 0.9-1.1) 2.6?H (Ref Range: 0.9-1.1) 2.0?H (Ref Range: 0.9-1.1) 1.6?H (Ref Range: 0.9-1.1) 2.1?H (Ref Range: 0.9-1.1) 1.8?H (Ref Range: 0.9-1.1) * Lab:URINE DIP STICK [...] Negative (Ref Range: Negative -) * Examination: ???General Examination: ?GENERAL APPEARANCE:?pleasant, well nourished, well developed, in no acute distress, calm and relaxed, overweight, elderly man.?HEAD:?atraumatic, normocephalic.?EYES:?eomi, perrla, anicteric, conjugate.?EARS:?normal.?NOSE:?septum intact.?ORAL CAVITY:?normal, unremarkable.?NECK/THYROID:?no jugular venous distention, no carotid bruit, thyroid normal, Old healed surgical incision base of right neck.?LYMPH NODES:?no enlarged lymph nodes,spleen normal.?SKIN:?no suspicious lesions, anicteric.?HEART:?no clicks, gallops, murmurs, or rubs, regular rhythm, S1, S2 normal, no s3, or vascular bruits.?LUNGS:?, diminished breath sounds throughout, no wheezes, rales, rhonchi, good air movement.?BREASTS:??no masses palpable bilaterally.?ABDOMEN:?bowel sounds normal, no ascites, no organomegaly, no mass, overweight.?RECTAL EXAM:?not examined.?MUSCULOSKELETAL:?extremities unremarkable, no clubbing, cyanosis or edema.?PERIPHERAL PULSES:?normal.?NEUROLOGIC:?alert and oriented, cranial nerves 2-12 grossly intact, deep tendon reflexes 2+ symmetrical, motor strength normal upper and lower extremities, sensory exam intact.?PSYCH:?alert, oriented.? Assessment: * Assessment: 1.?Skin lesion of face - L98 .9 (Primary)???Notes :The area on his nose has the appearance of an actinic keratosis.? It has only recently appeared.? 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 He is using etpk-qcg-pwysvxy medication. I recommended fluticasone and loratadine.???6.?Hypertension - I10???Notes :His blood pressure is stable today.???7.?DVT (deep venous thrombosis) - I82.409???Notes :He has had no blood clots.???8.?Overweight (BMI 25.0-29.9) - E66.3???Notes :He has lost 5 pounds and is still overweight. We discussed diet and nutrition. We made a plan to lose weight at a rate of one half of a pound per week through a diet restricted in calories combined with physical activity.???9.?Chronic nonintractable headache, unspecified headache type - R51???Notes :His headaches are improved. They're less frequent. He will continue on current therapy.???10.?Protein S deficiency - D68.59???Notes :He is doing well with his chronic anticoagulation. The protein S deficiency is no indication for lifelong therapy.???11.?Other depression - F32.89???Notes :His medication was increased to 100 mg daily. A follow-up visit was arranged. He has no suicidal ideation and is beginning to experience improvement.??? Plan: * Treatment: * Procedure Codes:? * Preventive Medicine:? ??Counseling:?Care goal follow-up plan:?Counseling for abnormal BMI given?Yes ?Above Normal BMI Follow-up?Dietary management education, guidance, and counseling, Dietary needs education, Exercise promotion: strength training ?Smoking/Tobacco Use?Patient counseled on the dangers of tobacco use and urged to quit.?10/15/2024 * Follow Up:?As Scheduled ([place] son: OV) * Images: * Sign off status: Completed true * Provider:?Jose Felder MD Date:?10/02 Generated for Frandy mittal/Apple/eTransmitting on:?10/18/2024 08:11 AM EDT History and Physical Notes * [...] Jose Felder [facility] Evaluate and Treat New Lesion of Nose
--- OUTSIDE RECORDS SUMMARY | 2024-10-18 08:12 | XMS_ITS ---
Author Organization Jose Felder III, MD Address [address] [place] [address] [address] [place] [address] Care Team Providers Care Tanker Driver Name Role Phone Jose Felder Primary Care Provider [phone] REASON FOR VISIT Message Social History Sex Assigned At : Social History Observation Description Sex Assigned At Male Encounters Encounter Location Date Provider Diagnosis Jose Felder III, MD [address] [place] [address] [place] [address] 09/17/2024 Jose Felder Plan Of Treatment Next Appt Details Provider Name:Jose Felder, 02/03/2025 10:00:00 AM, [address] [place] [address] [place], [address], Provider Name:Jose Felder, 10/05/2025 02:30:00 PM, [address] [place] [address] [place], [address], Progress Notes * Jem QUINTEROSDOB:1945 ( 79 yo M)Acc No.[id number]:09/17/2024 Patient:SusanEMERSONJem Drew :1945???Age:79 Y???Sex:Male Address:[address] [place] [address] * true * Date:? Generated for Printi ng/Apple/Rubenitting on:?10/18/2024 08:12 AM EDT
--- OUTSIDE RECORDS SUMMARY | 2024-10-18 08:12 | XMS_ITS ---
Author Organization Jose Felder III, MD Address [address] [place] [address] [place] [address] Care Team Providers Care Sensor Technician Name Role Phone Jose Felder Primary Care Provider Allergies Allergen (clinical drug ingredient) Drug/Non Drug Allergy documented on EMR Reaction Allergy Type Onset Date Status No Known Drug Allergy Unknown Drug Allergy Active Seasonale Unknown Drug Allergy Active Results Component Value Reference Range Notes URINE DIP STICK Reviewed date:10/04/2024 02:48:52 PM Interpretation: Performing Lab: Notes/Report: SG 1.020 1.005 - 1.025 pH 6.0 5.0 - 9.0 AMY Negative Negative - NIT Negative Negative - PRO 15 Negative - Trace GLU Negative Negative - KET 50 Negative - UBG 0.2 0.1 - 1.8 ARMANDO 1 0.2 - 1.3 BLD 5-10 Negative - REASON FOR VISIT annual exam Medications Medication SIG (Take, Route, Frequency, Duration) Notes Start Date End Date Status Losartan Potassium 25 MG as directed Ora lly Once a day Active SUMAtriptan Succinate 100 MG TAKE 1 TABLET BY MOUTH EVERY DAY AT THE ONSET OF MIGRAINE; MAY REPEATevery 22 HOURS IF when SYPTOMS PERSISTS; MAX OF 2 TS/ DAY Orally Once a day Active Venlafaxine HCl 50 MG 1 tablet with food Orally Once a day 04/16/2023 Active Simvastatin 40 MG 1 Tablet Orally Once a day Active Warfarin Sodium [...] Additional Findings: Tobacco non-user Ex-cigaret te smoker AUDIT-C (Standard) Question Answer Notes Did you have a drink contain ing alcohol in the past year? Yes How often did you have six o r more drinks on one occasion in the past year? Less than monthly (1 point) How many drinks did you have on a typical day when you were drinking in the past year? 1 or 2 drinks (0 point) How often did you have a dri nk containing alcohol in the past year? Never (0 point) Points 1 Interpretation Negative Problems Problem Type SNOMED Code ICD Code Onset Dates Problem Status W/U Status Risk Notes Problem Disease caused by Severe acute respiratory syndrome coronavirus 2 (disorder) ([id number]) COVID-19 virus infection (U07.1) Active confirmed He has recovered from his collins virus infection with no lung symptoms. Vital Signs Temperature 98.3 degrees Fahrenheit 10/05/19 25 Blood pressure systolic 138 mm Hg 10/05/19 25 Blood pressure diastolic 80 mm Hg 025 Heart Rate 96 /min 10/04/2024 Height 71 in 10/04/2024 Weight 192 lbs 10/04/2024 BMI 26.78 kg/m2 10/04/2024 Encounters Encounter Location Date Provider Diagnosis Jose Felder III, MD [address] [place] [address] [place] [address] 10/04/2024 Jose Felder COVID-19 virus infec tion U07.1 ; Chronic nonintractable headache, unspecified headache type R51 ; Benign prostatic hyperplasia, unspecified whether lower urinary tract symptoms present N40.0 ; 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 10/04/2024 Chronic nonintractable headache, unspecified headache type (ICD-10 - R51) His headaches are improved. They're less frequent. He will continue on current therapy. 10/04/2024 Benign prostatic hyperplasia, unspecified whether lower urinary tract symptoms present (ICD-10 - N40.0) He reports rising from sleep about twice a night to urinate. We have discussed some lifestyle modifications he could make to reduce this nocturia. 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 10/04/2024 Former smoker (ICD-1 0 - Z87.891) He is highly motivated not to smoke and has a plan to prevent relapse in times of stress or illness. 10/04/2024 Lung cancer (ICD-10 - C34.90) He remains in remission with no relapse. He is no longer smoking. 10/04/2024 Environmental allergies (ICD-10 - Z91.09) He has noted itching around his eyes and nasal congestion. He is using fuhm-sik-prrmwum medication. I recommended fluticasone and loratadine. 10/04/2024 Overweight (BMI 25.0-29.9) (ICD-10 - E66.3) He has lost 5 pounds and is still overweight. We discussed diet and nutrition. We made a plan to lose weight at a rate of one half of a pound per week through a diet restricted in calories combined with physical activity. 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 The protein S deficiency is no indication for lifelong therapy. 10/04/2024 Other depression (ICD-10 - F32.89) His medication was increased to 100 mg daily. A follow-up visit was arranged. He has no suicidal ideation and is beginning to experience improvement. 10/04/2024 Overweight (ICD-10 - E66.3) He has gained 7 pounds. His body mass index is 27. We discussed his weight loss strategy. I recommended aggressive weight loss through regular physical activity and diet restricted in calories. Plan Of Treatment Medication Medication Name Sig Start Date Stop Date Notes Losartan Potassium 25 MG as directed Orally Once a day SUMAtriptan Succinate 100 MG TAKE 1 TABL ET BY MOUTH EVERY DAY AT THE ONSET OF MIGRAINE; MAY REPEATevery 22 HOURS IF when SYPTOMS PERSISTS; MAX OF 2 TS/ DAY Orally Once a day Venlafaxine HCl 50 MG 1 tablet with food Orally Once a day 04/16/2023 Simvastatin 40 MG 1 Tablet Orally Once a day Warfarin Sodium 5 MG 1 1/2 tablet Orally Once a day Pending Test Test Name Order Date PROFILE, FASTING (COMPREHENSIVE METABOLI C) 10/04/2024 PSA, TOTAL 10/04/2024 CBC w DIFF 10/04/2024 Lipid Panel 10/04/2024 Next Appt Details Follow Up: 4 Months, Reason: OV Provider Name:Jose Felder, 02/03/2025 10:00:00 AM, [address] [place] [address] [address], [place], [phone], Provider Name:Jose Felder, 10/05/2025 02:30:00 PM, [address] [place] [address] [address], [place], [phone], Progress Notes * Jem QUINTEROSDOB:1945 ( 79 yo M)Acc No.[id number]:10/04/2024 Progress Notes Patient:?Jem QUINTEROS Provider:?Jose Felder MD :1945???Age:79 Y???Sex:Male Darius e:10/04/2024 Address: [address] [facility] [place], [id number] Subjective: * Chief Complaints: * ???Annual exam * HPI: ???Depression Screening:?PHQ-9?Little interest or pleasure in doing things?Not at all ?Feeling down, depressed, or hopeless?Not at all ?Trouble falling or staying asleep, or sleeping too much?Not at all ?Feeling tired or having little energy?Not at all ?Poor appetite or overeating?Not at all ?Feeling bad about yourself or that you are a failure, or have let yourself or your family down?Not at all ?Trouble concentrating on things, such as reading the newspaper or watching television?Not at all ?Moving or speaking so slowly that other people could have noticed; or the opposite, being so fidgety or restless that you have been moving around a lot more than usual?Not at all ?Thoughts that you would be better off or of hurting yourself in some way?Not at all ?Total Score?0 ???COVID-19 Screening:?Questions?Have you had any new onset fever, chills, cough, congestion, sore throat, shortness of breath, muscle aches??No ???Fall Risk Screening:?Fall History?Have you had any falls with injury in the past year??Yes ?Have you had two or more falls in the past year??No ?Fall Risk Assessment:?One fall with injury in the past year ???SDOH Questions:?SDOH Questions?In the past year have you been worried about losing your housing??No ?In the past year have you or any family members you live with been unable to get any of the following when it was really needed? Check all that apply:?None ???:? The patient, a 79-year-old male, has been experiencing memory issues. He reports instances where he has struggled to recall names, even of close acquaintances and family members, but he is able to remember them after some time. He also mentions a noise in his ear that comes and goes. He has been feeling a bit woozy at times, but this feeling subsides. He has also been experiencing slow urination. Blood Sugar Level is 105. * ROS:?General/Constitutional:?pain?only normal aches and pains.?Chills?denies.?Fatigue?admits.?Fever?denies.?ENT:?Decreased hearing?mild.?Respiratory:?Cough?denies.?Cardiovascular:?Chest pain with exertion?denies.?Dyspnea on exertion?denies.?Shortness of breath?denies.?Gastrointestinal:?Constipation?occasional.?Decreased appetite?denies.?Diarrhea?denies.?Heartburn?occasional.?Nausea?denies.?Rectal bleeding?denies.?Vomiting?denies.?Hematology:?bruising?denies.?petechiae?denies.?Swollen glands?none have been noted.?Genitourinary:?Frequent urination?twice a night.?Musculoskeletal:?Muscle aches?denies.?Painful joints?denies.?Sciatica?denies.?Weakness?denies.?Skin:?Itching?denies.?Rash?denies.?Skin lesion(s)?denies.?Neurologic:?Difficulty speaking?denies.?Dizziness?denies.?Headache?Becoming less frequent.?Low back pain?denies.?Psychiatric:?Depressed mood?which is mild.? * Medical History:? * Surgical History:?FNA superi [...] 10 years ?Additional Findings: Tobacco non-user?Ex-cigarette smoker ???Drugs/Alcohol:?Drugs?Have you used drugs other than those for medical reasons in the past 12 months??No ???Drug/Alcohol:?AUDIT-C (Standard)?Did you have a drink containing alcohol in the past year??Yes ?How often did you have six or more drinks on one occasion in the past year??Less than monthly (1 point) ?How many drinks did you have on a typical day when you were drinking in the past year??1 or 2 drinks (0 point) ?How often did you have a drink containing alcohol in the past year??Never (0 point) ?Points?1 ?Interpretation?Negative ???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 patient is retired and does not [...] Tablet 1 Tablet Orally Once a day Taking Losartan Potassium 25 MG Tablet as [...] Tablet 1 Tablet Orally Once a day DiscontinuedImitrex 100 MG Tablet 1 tablet as needed Orally As needed Venlafaxine HCl 100 MG Tablet TAKE 1 TABLET BY MOUTH EVERY DAY WITH FOOD traZODone HCl 50 MG Tablet 1 tablet Orally Once a day Paxlovid (300/100) 20 x 150 MG & 10 x 100MG Tablet Therapy Pack 3 tablets Orally Twice a day , Notes to Pharmacist: gfr above 60 [id number] List reviewed and reconciled with the patientDiscontinued Imitrex 100 MG Tablet 1 tablet as needed Orally As needed Discontinued Venlafaxine HCl 100 MG Tablet TAKE 1 TABLET BY MOUTH EVERY DAY WITH FOOD Discontinued traZODone HCl 50 MG Tablet 1 tablet Orally Once a day Discontinued Paxlovid (300/100) 20 x 150 MG & 10 x 100MG Tablet Therapy Pack 3 tablets Orally Twice a day , Notes to Pharmacist: gfr above 60 [id number] List reviewed and reconciled with the patient * Allergies:?SeasonaleNo Known Drug Allergyno[Allergies Verified] Objective: * Vitals:?Ht: 71, Wt:192, BMI: 26.78, BP:138/80, HR:96, Temp:98.3, Wt-k.09. * ???Past Orders: Lab:Complete Blood Count Aut o Diff * Collection Date 10/04/2024 06/07/2024 01/26/2024 Collection Time 06:09 AM 06:36 AM 06:20 AM Order Date 10/04/2024 06/07/202401/2501/26/2024 White Blood Count 10.5 (Ref Range: 4.8-10.8 [...] 10/04/2024 09/24/2024 09/17/2024 09/03/2024 08/31/2024 08/06/2024 07/23/2024 07/13/2024 Collection Time 08:45 AM 08:25 AM 08:51 AM 09:27 AM 08:06 AM 08:21 AM 08:24 AM 08:08 AM Order Date 10/04/2024 09/24/2024 09/17/2024 09/03/2024 08/06/2024 07/23/2024 07/13/2024 Prothrombin Time Whole Bld POC 23.8?H (Ref Range: 11.1-13.5 sec) 21.8?H (Ref Range: 11.1-13.5 sec) 31.6?H (Ref Range: 11.1-13.5 sec) 24.2?H (Ref Range: 11.1-13.5 sec) 18.8?H (Ref Range: 11.1-13.5 sec) 25.3?H (Ref Range: 11.1-13.5 sec) 21.4?H (Ref Range: 11.1-13.5 sec) 19.4?H (Ref Range: 11.1-13.5 sec) * Lab:INR WHOLE BLOOD POC * Collection Date 10/04/2024 09/24/2024 09/17/2024 09/03/2024 08/31/2024 08/06/2024 07/23/2024 07/13/2024 Collection Time 08:45 AM 08:25 AM 08:51 AM 09:27 AM 08:06 AM 08:21 AM 08:24 AM 08:08 AM Order Date 10/04/2024 09/24/2024 09/17/2024 09/03/2024 08/06/2024 07/23/2024 07/13/2024 INR WHOLE BLOOD POC 2.0?H (Ref Range: 0.9-1.1) 1.8?H (Ref Range: 0.9-1.1) 2.6?H (Ref Range: 0.9-1.1) 2.0?H (Ref Range: 0.9-1.1) 1.6?H (Ref Range: 0.9-1.1) 2.1?H (Ref Range: 0.9-1.1) 1.8?H (Ref Range: 0.9-1.1) 1.6?H (Ref Range: 0.9-1.1) * Lab:Lipid Panel * Collection Date 10/04/2024 06/07/2024 [...] 42 (Ref Range: >40 mg/dL) * Lab:[facility]prehensive [place]. Pane l Fast * Collection Date 10/04/2024 06/07/2024 [...] mg/dL) 9.3 (Ref Range: 8.4-10.2 mg/dL) * Lab:URINE DIP STICK * Collection Date [...] no acute distress, calm and relaxed, overweight, man, overweight, man.?HEAD:?atraumatic, normocephalic.?EYES:?eomi, perrla, anicteric, conjugate.?EARS:?normal.?NOSE:?septum intact.?ORAL CAVITY:?normal, unremarkable.?NECK/THYROID:?no jugular venous distention, no carotid bruit, thyroid normal. Healed scar base of right neck.?LYMPH NODES:?no enlarged lymph [...] sensory exam intact.?PSYCH:?alert, oriented.? Assessment: * Assessment: 1.?Chronic nonintractable he adache, unspecified headache type - R51 (Primary)???Notes :His headaches are improved. They're less frequent. He will continue on current therapy.???2.?COVID-19 virus infection - U07.1???Notes :He has recovered from his collins virus infection with no lung symptoms.???3.?Benign prostatic hyperplasia, unspecified whether lower urinary tract symptoms present - N40.0???Notes :He reports rising from sleep about twice a night to urinate.? 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 He is no longer smoking.???7.?Environmental allergies - Z91.09???Notes :He has noted itching around his eyes and nasal congestion. He is using rxim-fac-qfalzjn medication. I recommended fluticasone and loratadine.???8.?Overweight (BMI 25.0-29.9) - E66.3???Notes :He has lost 5 pounds and is still overweight. We discussed diet and nutrition. We made a plan to lose weight at a rate of one half of a pound per week through a diet restricted in calories combined with physical activity.???9.?Protein S deficiency - D68.59???Notes :He is doing well with his chronic anticoagulation. The protein S deficiency is no indication for lifelong therapy.???10.?Other depression - F32.89???Notes :His medication was increased to 100 mg daily. A follow-up visit was arranged. He has no suicidal ideation and is beginning to experience improvement.???11.?Overweight - E66.3???Notes :He has gained 7 pounds. His body mass index is 27. We discussed his weight loss strategy. I recommended aggressive weight loss through regular physical activity and diet restricted in calories.??? Plan: * Treatment: 2.?Benign prostatic hyperpla can, unspecified whether lower urinary tract symptoms present?LAB: PROFILE, FASTING (COMPREHENSIVE METABOLIC) ?LAB: PSA, TOTAL ?LAB: CBC w DIFF ?LAB: Lipid Panel * Labs:? * ?Lab: URINE DIP STICK (C ollection Date & Time - 10/04/2024) ? Value Reference Range ?SG 1.020 1.005 - 1.025 * ?pH 6.0 5.0 - 9.0 * ?AMY Negative Negative - * ?NIT Negative Negative - * ?PRO 15 Negative - Trac e * ?GLU Negative Negative - * ?KET 50 Negative - * ?UBG 0.2 0.1 - 1.8 * ?ARMANDO 1 0.2 - 1.3 * ?BLD 5-10 Negative - * Procedure Codes:?77132 URINE -NO MICRO * Preventive Medicine:? ??Counseling:?Care goal follow-up plan:?Counseling for abnormal BMI given?Yes ?Above Normal BMI Follow-up?Dietary management education, guidance, and counseling, Dietary needs education ?Smoking/Tobacco Use?Patient counseled on the dangers of tobacco use and urged to quit.?10/04/2024 * Follow Up:?4 Months (Reason: OV) * Images: * Sign off status: Completed true * Provider:?Jose Felder MD Date:?10/2024 Generated for [employer] dax[employer]/Apple/eTransmitting on:?10/18/2024 08:11 AM EDT History and Physical Notes * HPI (History of Present Illness) Category Sub-Category Detail Notes Depression Screening PHQ-9 Little inte rest or pleasure in doing things: Not at all Feeling down, depressed, or hopeless: No t at all Trouble falling or staying asleep, or sl eeping too much: Not at all Feeling tired or having little energy: N ot at all Poor appetite or overeating: Not at all Feeling bad about yourself o r that you are a failure, or have let yourself or your family down: Not at all Trouble concentrating on thi ngs, such as reading the newspaper or watching television: Not at all Moving or speaking so slowly that other people could have noticed; or the opposite, being so fidgety or restless that you have been moving around a lot more than usual: Not at all Thoughts that you would be b merline off or of hurting yourself in some way: Not at all Total Score: 0 Fall Risk Screening Fall History Have you had any falls with injury in the past year?: Yes Have you had two or more falls in the year?: No Fall Risk Assessment:: One fall with inj ury in the past year COVID-19 Screening Questions Have you had any new onset fever, chills, cough, congestion, sore throat, shortness of breath, muscle aches?: No SDOH Questions SDOH Questions In the past year have you been worried about losing your housing?: No In the past year have you or any family members you live with been unable to get any of the following when it was really needed? Check all that apply:: None Examination Category Sub-Category Detail Notes General Examination GENERAL APPEARANCE: pleasant , well nourished, well developed, in no acute distress, calm and relaxed, overweight, man, overweight, man HEAD: atraumatic, normocep halic EYES: eomi, perrla, anicte mike, conjugate EARS: normal NOSE: septum intact NECK/THYROID: no jugular venous di stention, no carotid bruit, thyroid normal. Healed scar base of right neck HEART: no clicks, [...]
[2024-10-18 08:14] LABS: Prothrombin Time Whole Bld POC 20.9 sec (11.1-13.5); ~PT, ~INR - Anti Coag Clinic 1.7 (0.9-1.1)
--- NOTE | 2024-10-18 08:23 | MHC.OFFVISCO ---
Intake Intake Visit Reasons: Anticoagulation Allergies Seasonal Allergies Allergy (Intermediate, Verified 10/18/24 08:07) Cough venlafaxine Adverse Reaction (Intermediate, Verified 10/18/24 08:07) Headache Medication List - Last Reconciled 10/18/24 by Brenda Trimble RN losartan 25 mg PO DAILY simvastatin 40 mg PO DAILY sumatriptan succinate 100 mg PO PRN venlafaxine 100 mg PO DAILY warfarin 5 mg See Protocol PO DAILY Nursing Note INR: 1.7 in therapeutic range Medications and supplements reviewed *HAD COVID END OF AUGUST AND PAXLOVID WHICH MAY BE AFFECTING INR STILL, ALSO STOPPED MOST SUPPLEMENTS Denies any signs and symptoms of bleeding or bruising or clotting. 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
== END 2024-10-18 08:30 | disposition home or self-care (01) ==
LOC: HO.ACS 08:06
PROVIDERS: PCP Internal Medicine Medical Oncology; Visit Provider Internal Medicine
DX: Z79.01 Long term (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 (principal)

== ENCOUNTER → 2024-10-18 08:06 | Outpatient (BNVA) | payer MEDICARE, SELFPAY | PROVIDERS: PCP Internal Medicine Medical Oncology; Visit Provider Internal Medicine | DX: Z86.718 Personal history of other venous thrombosis and embolism (principal); Z79.01 Long term (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; Z51.81 Encounter for therapeutic drug level monitoring | CPT/HCPCS: 85610; 99211 ==

== ENCOUNTER 2024-10-29 08:11 | Outpatient (AMB) | payer MEDICARE, SELFPAY ==
[2024-10-29 08:28] LABS: Prothrombin Time Whole Bld POC 30.4 sec (11.1-13.5); ~PT, ~INR - Anti Coag Clinic 2.5 (0.9-1.1)
--- NOTE | 2024-10-29 08:30 | MHC.OFFVISCO ---
Intake Intake Visit Reasons: Anticoagulation Allergies Seasonal Allergies Allergy (Intermediate, Verified 10/18/24 08:07) Cough venlafaxine Adverse Reaction (Intermediate, Verified 10/18/24 08:07) Headache Medication List - Last Reconciled 10/29/24 by Razia López RN losartan 25 mg PO DAILY simvastatin 40 mg PO DAILY sumatriptan succinate 100 mg PO PRN trazodone 50 mg PO BEDTIME venlafaxine 100 mg PO DAILY warfarin 5 mg See Protocol PO DAILY Nursing Note INR: 2.5 in therapeutic range of 2-3 Medications and supplements reviewed No changes in health, diet, medications, or supplements, Denies any signs and symptoms of bleeding or bruising or clotting. Bleeding, bruising, clotting discussed Nutritional guidance given Dose: 5mg X 5 days and 7.5mg X 3 days (S/T/) F/U INR: 2 weeks Patient verbalizes understanding of instructions given Anti-Coag Initial Assessment Social Hx Patient Tobacco Use Status: Former Tobacco user Tobacco use type: Cigar alcohol intake: never Coding Level of Care Code Est Patient Level 1 Diagnoses Current use of anticoagulant therapy Z79.01 Results AMB INR Fingerstick AMB INR Fingerstick 2.5 Last Edit by Razia López RN on 10/29/24 08:26 interface delay Assessment & Plan Assessment & Plan (1) Current use of anticoagulant therapy: Code(s): 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
== END 2024-10-29 08:31 | disposition home or self-care (01) ==
LOC: HO.ACS 08:11
PROVIDERS: PCP Internal Medicine Medical Oncology; Visit Provider Internal Medicine Medical Oncology
DX: Z79.01 Long term (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 (principal)

== ENCOUNTER → 2024-10-29 08:11 | Outpatient (BNVA) | payer MEDICARE, SELFPAY | PROVIDERS: PCP Internal Medicine Medical Oncology; Visit Provider Internal Medicine Medical Oncology | DX: Z86.718 Personal history of other venous thrombosis and embolism (principal); Z79.01 Long term (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; Z51.81 Encounter for therapeutic drug level monitoring | CPT/HCPCS: 85610; 99211 ==

== ENCOUNTER 2024-11-12 08:49 | Outpatient (AMB) | payer MEDICARE, SELFPAY ==
--- OUTSIDE RECORDS SUMMARY | 2024-11-12 08:58 | XMS_ITS ---
Author Organization Jose Felder III, MD Address [address] [place] [address] [place] [address] Care Team Providers Care Acid Pumper Name Role Phone Jose Felder Primary Care [...] Severe acute respiratory syndrome coronavirus 2 (disorder) ([id number]) COVID-19 virus infection (U07.1) Active confirmed He [...] Date Provider Diagnosis Jose Felder III, MD [address] [place] [address] [place] [address] 10/04/2024 Jose Felder COVID-19 virus infec tion [...] eyes and nasal congestion. He is using vsbr-bpf-trfucmj medication. I recommended fluticasone and loratadine. 10/04/2024 [...] OV Provider Name:Jose Felder, 02/03/2025 10:00:00 AM, [address] [place] [address] [address], [place], [phone], Provider Name:Jose Felder, 10/05/2025 02:30:00 PM, [address] [place] [address] [address], [place], [phone], Progress Notes * Jem QUINTEROSDOB:1945 ( 79 yo M)Acc No.[id number]:10/04/2024 Progress Notes Patient:?Jem QUINTEROS Provider:?Jose Felder MD :1945???Age:79 Y???Sex:Male Darius e:10/04/2024 Address: [address] [facility] [place], [id number] Subjective: * Chief Complaints: * ???Annual exam [...] ?Points?1 ?Interpretation?Negative ???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 Pane l Fast * Collection Date 10/04/2024 [...] eyes and nasal congestion. He is using zpml-bje-azlwhur medication. I recommended fluticasone and loratadine.???8.?Overweight (BMI [...] * ?BLD 5-10 Negative - * Procedure Codes:?33190 URINE -NO MICRO * Preventive Medicine:? ??Counseling:?Care goal follow-up plan:?Counseling for abnormal BMI given?Yes ?Above Normal BMI Follow-up?Dietary management education, guidance, and counseling, Dietary needs education ?Smoking/Tobacco Use?Patient counseled on the dangers of tobacco use and urged to quit.?10/04/2024 * Follow Up:?4 Months (Reason: OV) * Images: * Sign off status: Completed true * Provider:?Jose Felder MD Date:?10/2024 Generated for [employer]/eTransmitting on:?11/12/2024 08:58 AM EDT History and Physical Notes * [...]
--- OUTSIDE RECORDS SUMMARY | 2024-11-12 08:58 | XMS_ITS ---
Author Organization Jose Felder III, MD Address [address] [place] [address] Care Team Providers Care Radio Station Manager Name Role Phone Jose Felder Primary Care Provider [phone] Allergies Allergen (clinical drug ingredient) Drug/Non Drug [...] Provider Speciality Internal M edicine Referred Provider [facility] [place] [place] ([place]) Referred Provider Specialty Dermatology General Notes Tamie You 10/18/2024 10:59:17 AM > Referral Faxed Referral Priority Routine REASON FOR VISIT Skin [...] Problem Status W/U Status Risk Notes Problem [id number] Skin lesion of face (L98.9) Active confirmed [...] Date Provider Diagnosis Jose Felder III, MD [address] [place] [address] [place] [address] 10/15/2024 Jose Felder Skin lesion of face [...] eyes and nasal congestion. He is using zaau-nxk-sntvykr medication. I recommended fluticasone and loratadine. 10/15/2024 [...] New Lesion of Nose, [facility] Next Appt Details Follow Up: As Scheduled, [place] son: OV Provider Name:Jose Felder, 02/03/2025 10:00:00 AM, [address] [place] [address] [place], [place], [address], Provider Name:Jose Felder, 10/05/2025 02:30:00 PM, [address] [place], [place], [address], Progress Notes * Jem QUINTEROSDOB:1945 ( 79 yo M)Acc No.[id number]:10/15/2024 Progress Notes Patient:?Jem QUINTEROS Provider:?Jose Felder MD :1945???Age:79 Y???Sex:Male Darius e:10/15/2024 Address:[address] [place] [address] [id number] Subjective: * Chief Complaints: * ???Skin lesion, [...] non-user?Ex-cigarette smoker ???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 The patient is retired and does not [...] 42 (Ref Range: >40 mg/dL) * Lab:[facility] * Collection Date 10/04/2024 06/07/2024 [...] AM Order Date 10/04/2024 09/24/2024 09/17/2024 09/03/2024 01/28/202 5 08/06/2024 07/23/2024 Prothrombin Time Whole Bld POC [...] eyes and nasal congestion. He is using iffn-xuk-rhnfizx medication. I recommended fluticasone and loratadine.???6.?Hypertension - [...] urged to quit.?10/15/2024 * Follow Up:?As Scheduled ([place] son: OV) * Images: * Sign off status: Completed true * Provider:?Jose Felder MD Date:?10/02 Generated for Frandy mittal/Apple/Rubenitting on:?11/12/2024 08:58 AM EDT History and Physical [...] [facility] Evaluate and Treat New Lesion of Nose
--- NOTE | 2024-11-12 08:59 | MHC.OFFVISCO ---
Intake Intake Visit Reasons: Anticoagulation Allergies Seasonal Allergies Allergy (Intermediate, Verified 11/12/24 08:49) Cough venlafaxine Adverse Reaction (Intermediate, Verified 11/12/24 08:49) Headache Medication List - Last Reconciled 11/12/24 by Razia López RN losartan 25 mg PO DAILY simvastatin 40 mg PO DAILY sumatriptan succinate 100 mg PO PRN trazodone 50 mg PO BEDTIME venlafaxine 100 mg PO DAILY warfarin 5 mg See Protocol PO DAILY Nursing Note INR: 2.0 in therapeutic range of 2-3 Medications and supplements reviewed No changes in health, diet, medications, or supplements, Denies any signs and symptoms of bleeding or bruising or clotting. Bleeding, bruising, clotting discussed Nutritional guidance given Dose: 5mg X 4 days and 7.5mg X 3 days (//) F/U INR: 2 weeks Patient verbalizes understanding of instructions given Anti-Coag Initial Assessment Social Hx Patient Tobacco Use Status: Former Tobacco user Tobacco use type: Cigar alcohol intake: never Coding Level of Care Code Est Patient Level 1 Diagnoses Current use of anticoagulant therapy Z79.01 Results AMB INR Fingerstick AMB INR Fingerstick 2.0 Last Edit by Razia López RN on 11/12/24 08:57 interface delay Assessment & Plan Assessment & Plan (1) Current use of anticoagulant therapy: Code(s): Z79.01 - 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
--- OUTSIDE RECORDS SUMMARY | 2024-11-12 08:59 | XMS_ITS | Patient Health Record ---
Author Organization Jose Felder III, MD Address [address] [place] [address] DR PACKER Kervin DICKERSON CALEB [address] Care Team Providers Care Group Leader Name Role Phone Jose Felder Primary Care Provider [phone] Allergies Allergen (clinical drug ingredient) Drug/Non Drug [...] 0.2 - 1.3 BLD 5-10 Negative - INR WHOLE BLOOD POC Reviewed date:11/21/2023 01:41:43 PM Interpretation: Performing Lab:[facility], [address] [place] [phone] Notes/Report: PT, INR - Anti [facility]ag Clinic 2.5 0.9-1.1 METER #: [id number] INTERNATIONAL NORMALIZED RATIO (INR) REFERENCE RANGES Reference [...] OC Reviewed date:11/21/2023 01:41:43 PM Interpretation: Performing Lab:[facility], [address] [place] [phone] Notes/Report: Prothrombin Time Whole Bld POC 30.5 11.1-13.5 sec INR WHOLE BLOOD POC Reviewed date:12/17/2023 09:46:09 AM Interpretation: Performing Lab:[facility], [address] [place] [phone] Notes/Report: PT, INR - Anti Coag Clinic 2.3 0.9-1.1 METER #: [id number] INTERNATIONAL NORMALIZED RATIO (INR) REFERENCE RANGES Reference [...] OC Reviewed date:12/17/2023 09:46:09 AM Interpretation: Performing Lab:[facility], [address] [place] [phone] Notes/Report: Prothrombin Time Whole Bld POC 27.3 11.1-13.5 sec INR WHOLE BLOOD POC Reviewed date:01/24/2024 05:54:24 PM Interpretation: Performing Lab:[facility], [address] [place] [phone] Notes/Report: PT, INR - Anti Coag Clinic 3.3 0.9-1.1 METER #: [id number] INTERNATIONAL NORMALIZED RATIO (INR) REFERENCE RANGES Reference [...] OC Reviewed date:01/24/2024 05:54:24 PM Interpretation: Performing Lab:[facility], [address] [place] [phone] Notes/Report: Prothrombin Time Whole Bld POC 39.9 11.1-13.5 sec Complete Blood Count Auto Di ff Reviewed date:02/10/2024 12:49:39 PM Interpretation: Performing Lab:[facility], [address] [place] [phone] Notes/Report: White Blood Count 9.1 4.8-10.8 X10*3/uL [...] NRBC Abs Auto 0.000 0.0-0.012 X10*3/uL Comprehensive Rhodes. Panel Fa st Reviewed date:02/10/2024 12:49:39 PM Interpretation: Performing Lab:[facility], [address] [place] [phone] Notes/Report: Sodium 142 135-145 mmol/L Potassium 4.3 3.3-5.1 mmol/L Chloride 109 96-108 mmol/L Carbon Dioxide 26 22-29 mmol/L Anion Gap 11 12-20 Blood Urea Nitrogen 23 9-16 mg/dL Creatinine 0.76 0.5-1.4 mg/dL Estimated Glomerular Filt Rate > 60 NOTE: For -Gibraltarian individuals, multiply the result by 1.210. Chronic [...] Panel Reviewed date:02/10/2024 12:49:39 PM Interpretation: Performing Lab:[facility], [address] [place] [phone] Notes/Report: Triglycerides 59 <150 mg/dL Desirable Triglyceride: [...] Antigen Reviewed date:02/10/2024 12:49:39 PM Interpretation: Performing Lab:[facility], [address] [place] [phone] Notes/Report: Prostate Specific Antigen 1.37 <0.05-4.0 ng/mL PSA methodology: Sheets Alinity i Chemiluminescent Microparticle Immunoassay (CMIA) INR WHOLE BLOOD POC Reviewed date:02/10/2024 12:49:39 PM Interpretation: Performing Lab:[facility], [address] [place] [phone] Notes/Report: PT, INR - Anti Coag Clinic 1.9 0.9-1.1 METER #: [id number] INTERNATIONAL NORMALIZED RATIO (INR) REFERENCE RANGES Reference [...] OC Reviewed date:02/10/2024 12:49:39 PM Interpretation: Performing Lab:[facility], [address] [place] [phone] Notes/Report: Prothrombin Time Whole Bld POC 22.3 11.1-13.5 sec INR WHOLE BLOOD POC Reviewed date:03/21/2024 06:44:39 AM Interpretation: Performing Lab:[facility], [address] [place] [phone] Notes/Report: PT, INR - Anti Coag Clinic 1.7 0.9-1.1 METER #: [id number] INTERNATIONAL NORMALIZED RATIO (INR) REFERENCE RANGES Reference [...] OC Reviewed date:03/21/2024 06:44:39 AM Interpretation: Performing Lab:[facility], [address] [place] [address] Notes/Report: Prothrombin Time Whole Bld POC 20.4 11.1-13.[address] head/brain wo con Reviewed date:03/21/2024 06:44:39 AM Interpretation: Performing Lab: Notes/Report: [facility] [address] [facility] [place] [address] CT Scan Report Signed Patient: Jem Gallardo MR#: [id number] [birth year] : 1945 Acct:[id number] Age/Sex: 79 / M ADM Date: 03/15/24 Loc: HO.ED Attending Dr: Ordering Physician: Lynne Fields Date of Service: 03/15/24 Procedure(s): CT head/brain wo IV con Accession Number(s): [id number] cc: Jose Felder MD; Lynne Fields EXAMINATION: [...] in OV> 03/15/24 1601 DD/ 1227 TD/TT: [employer] Layout: [place] [address] CT Scan Report Signed Patient: Jem Gallardo MR#: [id number] [birth year] : 1945 Acct:[id number] Age/Sex: 79 / M ADM Date: 03/15/24 Loc: HO.ED Attending Dr: Ordering Physician: Lynne Fields Date of Service: 03/15/24 Procedure(s): CT head/brain wo IV con Accession Number(s): [id number] cc: Jose Felder MD; Lynne Fields EXAMINATION: [...] in OV> 03/15/24 1601 DD/ 1227 TD/TT: [employer] Layout: INR WHOLE BLOOD POC Reviewed date:03/25/2024 08:29:44 PM Interpretation: Performing Lab:[facility], [address] [place] [phone] Notes/Report: PT, INR - Anti Coag Clinic 2.1 0.9-1.1 METER #: [id number] INTERNATIONAL NORMALIZED RATIO (INR) REFERENCE RANGES Reference [...] OC Reviewed date:03/25/2024 08:29:44 PM Interpretation: Performing Lab:[facility], [address] [place] [phone] Notes/Report: Prothrombin Time Whole Bld POC 25.8 11.1-13.5 sec INR WHOLE BLOOD POC Reviewed date:04/21/2024 06:39:37 AM Interpretation: Performing Lab:[facility], [address] [place] [phone] Notes/Report: PT, INR - Anti Coag Clinic 1.9 0.9-1.1 METER #: [id number] INTERNATIONAL NORMALIZED RATIO (INR) REFERENCE RANGES Reference [...] OC Reviewed date:04/21/2024 06:39:38 AM Interpretation: Performing Lab:[facility], [address] [place] [phone] Notes/Report: Prothrombin Time Whole Bld POC 22.2 11.1-13.5 sec INR WHOLE BLOOD POC Reviewed date:05/18/2024 11:38:32 AM Interpretation: Performing Lab:[address] [phone] Notes/Report: PT, INR - Anti Coag Clinic 2.1 0.9-1.1 METER #: [id number] INTERNATIONAL NORMALIZED RATIO (INR) REFERENCE RANGES Reference [...] OC Reviewed date:05/18/2024 11:38:32 AM Interpretation: Performing Lab:[facility], [address] [place] [phone] Notes/Report: Prothrombin Time Whole Bld POC 25.7 11.1-13.5 sec Complete Blood Count Auto Di ff Reviewed date:06/07/2024 11:48:38 AM Interpretation: Performing Lab:[address] [phone] Notes/Report: White Blood Count 9.5 4.8-10.8 X10*3/uL [...] NRBC Abs Auto 0.000 0.0-0.012 X10*3/uL Comprehensive [facility]. Panel Fa st Reviewed date:06/07/2024 11:48:38 AM Interpretation: Performing Lab:[address] [phone] Notes/Report: Sodium 144 135-145 mmol/L Potassium 4.7 3.3-5.1 mmol/L Chloride 108 96-108 mmol/L Carbon Dioxide 27 22-29 mmol/L Anion Gap 14 12-20 Blood Urea Nitrogen 20 9-16 mg/dL Creatinine 0.79 0.5-1.4 mg/dL Estimated Glomerular Filt Rate > 60 NOTE: For -Gibraltarian individuals, multiply the result by 1.210. Chronic [...] Panel Reviewed date:06/07/2024 11:48:38 AM Interpretation: Performing Lab:[address] [place] [address] Notes/Report: Triglycerides 66 <150 mg/dL Desirable Triglyceride: [...] Antigen Reviewed date:06/07/2024 11:48:38 AM Interpretation: Performing Lab:[address] [address] Notes/Report: Prostate Specific Antigen 1.23 <0.05-4.0 ng/mL PSA methodology: Sheets Alinity i Chemiluminescent Microparticle Immunoassay (CMIA) INR WHOLE BLOOD POC Reviewed date:06/15/2024 08:32:55 AM Interpretation: Performing Lab:[address] [address] Notes/Report: PT, INR - Anti Coag Clinic 2.0 0.9-1.1 METER #: [id number] INTERNATIONAL NORMALIZED RATIO (INR) REFERENCE RANGES Reference [...] OC Reviewed date:06/15/2024 08:32:55 AM Interpretation: Performing Lab:[address] [phone] Notes/Report: Prothrombin Time Whole Bld POC 24.4 11.1-13.5 sec INR WHOLE BLOOD POC Reviewed date:07/16/2024 08:35:52 AM Interpretation: Performing Lab:[facility], [address] [place] [phone] Notes/Report: PT, INR - Anti Coag Clinic 1.6 0.9-1.1 METER #: [id number] INTERNATIONAL NORMALIZED RATIO (INR) REFERENCE RANGES Reference [...] OC Reviewed date:07/16/2024 08:35:52 AM Interpretation: Performing Lab:[facility], [address] [place] [phone] Notes/Report: Prothrombin Time Whole Bld POC 19.4 11.1-13.5 sec INR WHOLE BLOOD POC Reviewed date:07/23/2024 09:07:49 PM Interpretation: Performing Lab:[facility], [address] [place] [phone] Notes/Report: PT, INR - Anti Coag Clinic 1.8 0.9-1.1 METER #: [id number] INTERNATIONAL NORMALIZED RATIO (INR) REFERENCE RANGES Reference [...] OC Reviewed date:07/23/2024 09:07:49 PM Interpretation: Performing Lab:[facility], [address] [place] [phone] Notes/Report: Prothrombin Time Whole Bld POC 21.4 11.1-13.5 sec INR WHOLE BLOOD POC Reviewed date:08/06/2024 08:49:39 PM Interpretation: Performing Lab:[facility], [address] [place] [phone] Notes/Report: PT, INR - Anti Coag Clinic 2.1 0.9-1.1 METER #: [id number] INTERNATIONAL NORMALIZED RATIO (INR) REFERENCE RANGES Reference [...] Prothrombin Time Whole Bld P OC Reviewed date:08/06/2024 08:49:39 PM Interpretation: Performing Lab:[facility], [address] [place] [phone] Notes/Report: Prothrombin Time Whole Bld POC 25.3 11.1-13.5 sec INR WHOLE BLOOD POC Reviewed date:09/02/2024 06:23:24 AM Interpretation: Performing Lab:[facility], [address] [place] [phone] Notes/Report: PT, INR - Anti Coag Clinic 1.6 0.9-1.1 METER #: [id number] INTERNATIONAL NORMALIZED RATIO (INR) REFERENCE RANGES Reference [...] Prothrombin Time Whole Bld P OC Reviewed date:09/02/2024 06:23:24 AM Interpretation: Performing Lab:[facility], [address] [place] [phone] Notes/Report: Prothrombin Time Whole Bld POC 18.8 11.1-13.5 sec INR WHOLE BLOOD POC Reviewed date:09/05/2024 08:45:11 AM Interpretation: Performing Lab:[facility], [address] [place] [phone] Notes/Report: PT, INR - Anti Coag Clinic 2.0 0.9-1.1 METER #: [id number] INTERNATIONAL NORMALIZED RATIO (INR) REFERENCE RANGES Reference [...] Prothrombin Time Whole Bld P OC Reviewed date:09/05/2024 08:45:11 AM Interpretation: Performing Lab:[facility], [address] [place] [phone] Notes/Report: Prothrombin Time Whole Bld POC 24.2 11.1-13.5 sec INR WHOLE BLOOD POC Reviewed date:09/19/2024 09:54:44 AM Interpretation: Performing Lab:[facility], [address] [place] [phone] Notes/Report: PT, INR - Anti Coag Clinic 2.6 0.9-1.1 METER #: [id number] INTERNATIONAL NORMALIZED RATIO (INR) REFERENCE RANGES Reference [...] Prothrombin Time Whole Bld P OC Reviewed date:09/19/2024 09:54:44 AM Interpretation: Performing Lab:[facility], [address] [place] [phone] Notes/Report: Prothrombin Time Whole Bld POC 31.6 11.1-13.5 sec INR WHOLE BLOOD POC Reviewed date:09/24/2024 11:58:00 AM Interpretation: Performing Lab:[facility], [address] [place] [phone] Notes/Report: PT, INR - Anti Coag Clinic 1.8 0.9-1.1 METER #: [id number] INTERNATIONAL NORMALIZED RATIO (INR) REFERENCE RANGES Reference [...] Prothrombin Time Whole Bld P OC Reviewed date:09/24/2024 11:58:00 AM Interpretation: Performing Lab:[facility], [address] [place] [phone] Notes/Report: Prothrombin Time Whole Bld POC 21.8 11.1-13.5 sec Complete Blood Count Auto Di ff Reviewed date:10/04/2024 11:26:43 AM Interpretation: Performing Lab:[facility], [address] [place] [phone] Notes/Report: White Blood Count 10.5 4.8-10.8 X10*3/uL Red Blood Count 4.70 4.60-5.80 X10*6/uL Hemoglobin 14.6 14.0-18.0 g/dl Hematocrit 43.6 42.0-52.0 % Mean Corpuscular Volume 92.8 80.0-98.0 fL Mean Corpuscular Hemoglobin 31.1 27.0-33.0 pg Mean Corpuscular HGB Conc 33.5 31.0-36.0 g/dl Red Cell Distribution Width 14.3 11.0-16.0 % Platelet Count 279 160-400 X10*3/uL Mean Platelet Volume 11.4 9.4-12.4 fL Neutrophils Percent Auto 52.7 45-73 % Imm Gran Pct Auto 0.3 0.0-0.4 % Lymphocytes Percent Auto 35.5 20-40 % Monocytes Percent Auto 9.2 2-11 % Eosinophils Percent Auto 1.3 0-4 % Basophils Percent Auto 1.0 0-2 % NRBC Pct Auto 0.0 0.0-0.2 /100WBC Neutrophils Absolute Auto 5.5 2.0-8.3 x10*3/u L Imm Gran Abs Auto 0.03 0.00-0.03 X10*3/uL Lymphocytes Absolute Auto 3.7 1.2-4.9 X10*3/u L Monocytes Absolute Auto 1.0 0.1-1.2 X10*3/uL Eosinophils Absolute Auto 0.1 0.0-0.4 X10*3/u L Basophils Absolute Auto 0.1 0.0-0.2 X10*3/uL NRBC Abs Auto 0.000 0.0-0.012 X10*3/uL Comprehensive [facility]. Panel Fa st Reviewed date:10/04/2024 11:26:43 AM Interpretation: Performing Lab:[address] [address] Notes/Report: Sodium 144 135-145 mmol/L Potassium 4.6 3.3-5.1 mmol/L Chloride 109 96-108 mmol/L Carbon Dioxide 28 22-29 mmol/L Anion Gap 12 12-20 Blood Urea Nitrogen 22 9-16 mg/dL Creatinine 0.77 0.5-1.4 mg/dL Estimated Glomerular Filt Rate > 60 Chronic Kidney Disease: Estimated GFR < 60 mL/min/1.73m2 Severe Kidney Disease: Estimated GFR < 15 mL/min/1.73m2 Glucose Fasting 105 60-99 mg/dL A fasting glucose from 100-125 mg/dl is considered impaired (pre-diabetes). Calcium 8.8 8.4-10.2 mg/dL Bilirubin Total 0.6 0.0-1.0 mg/dL Aspartate Amino Transferase 25 5-37 U/L Alanine Aminotransferase 23 0-40 U/L Total Protein 7.5 6.5-8.0 g/dL Albumin Level 4.1 3.5-5.0 g/dL Alkaline Phosphatase 72 39-117 U/L Lipid Panel Reviewed date:10/04/2024 11:26:43 AM Interpretation: Performing Lab:[address] [address] Notes/Report: Triglycerides 81 <150 mg/dL Desirable Triglyceride: less than 150 mg/dL Borderline High Triglyceride 150-199 mg/dL High Triglyceride: 200-499 mg/dL Very High Triglyceride: greater than or equal to 5OO mg/dL Cholesterol 164 <200 mg/dL Desirable Cholesterol: less than 200 mg/dL Borderline High Cholesterol: 200-239 mg/dL High Cholesterol: greater than 239 mg/dL LDL Cholesterol Calculated 104 <100 mg/dL Desirable LDL: less than 100 mg/dL Near Optimal/Above Optimal LDL: 110-129 mg/dL Borderline High LDL: 130-159 mg/dL High LDL: 160-189 mg/dL Very High LDL: greater than or equal to 190 mg/dL HDL Cholesterol 44 >40 mg/dL Desirable HDL: greater than 40 mg/dL Note: This HDL assay may give artificially low results in patients with liver disease. INR WHOLE BLOOD POC Reviewed date:10/04/2024 11:26:43 AM Interpretation: Performing Lab:[facility], [address] [place] [phone] Notes/Report: PT, INR - Anti Coag Clinic 2.0 0.9-1.1 METER #: [id number] INTERNATIONAL NORMALIZED RATIO (INR) REFERENCE RANGES Reference [...] Prothrombin Time Whole Bld P OC Reviewed date:10/04/2024 11:26:43 AM Interpretation: Performing Lab:[facility], [address] [place] [phone] Notes/Report: Prothrombin Time Whole Bld POC 23.8 11.1-13.5 sec INR WHOLE BLOOD POC Reviewed date:10/19/2024 12:18:43 PM Interpretation: Performing Lab:[address] [address] Notes/Report: PT, INR - Anti Coag Clinic 1.7 0.9-1.1 METER #: [id number] INTERNATIONAL NORMALIZED RATIO (INR) REFERENCE RANGES Reference [...] Prothrombin Time Whole Bld P OC Reviewed date:10/19/2024 12:18:43 PM Interpretation: Performing Lab:[facility], [address] [place] [phone] Notes/Report: Prothrombin Time Whole Bld POC 20.9 11.1-13.5 sec INR WHOLE BLOOD POC Reviewed date:10/30/2024 07:56:40 AM Interpretation: Performing Lab:[facility], [address] [place] [phone] Notes/Report: PT, INR - Anti Coag Clinic 2.5 0.9-1.1 METER #: [id number] INTERNATIONAL NORMALIZED RATIO (INR) REFERENCE RANGES Reference [...] Prothrombin Time Whole Bld P OC Reviewed date:10/30/2024 07:56:40 AM Interpretation: Performing Lab:[facility], [address] [place] [phone] Notes/Report: Prothrombin Time Whole Bld POC 30.4 11.1-13.5 sec Reason For Referral Reason Evaluate and Treat New Lesion of Nose Diagnosis 1 Lesion of nose (J34. 89) Referral Organization Jose Felder III, MD Referring Provider First Name Jose Referring Provider Last Name Bradford Referring Provider Speciality Internal M edicine Referred Provider [facility] ([place]) Referred Provider Specialty Dermatology General Notes Tamie You 10/18/2024 10:59:17 AM > Referral Faxed Referral Priority Routine Medications Medication SIG (Take, Route, Frequency, Duration) Notes Start Date End Date Status Venlafaxine HCl 50 MG 1 tablet with food Orally Once a day 04/16/2023 Active Losartan Potassium 25 MG as directed Ora lly Once a day for 90 days Active Warfarin Sodium 5 MG 1 1/2 tablet Orally Once a day for 30 days Active Simvastatin 40 MG 1 Tablet Orally Once a day Active SUMAtriptan Succinate 100 MG TAKE 1 TABLET BY MOUTH EVERY DAY AT THE ONSET OF MIGRAINE; MAY REPEATevery 22 HOURS IF when SYPTOMS PERSISTS; MAX OF 2 TS/ DAY Orally Once a day Active Immunizations Vaccine Route Administration Date Status [...] Pfizer-BioNTech Unknown 05/31/2023 Administer ed Social History Tobacco Use: Social History Observation [...] Problem Status W/U Status Risk Notes Problem 0412542 Former smoker (Z87.891) Active confirmed He is highly motivated not to smoke and has a plan to prevent relapse in times of stress or illness. Problem 366361028 Overweight (BMI 25.0-29.9) (E66.3) Active confirmed He has lost 5 pounds and is still overweight. We discussed diet and nutrition. We made a plan to lose weight at a rate of one half of a pound per week through a diet restricted in calories combined with physical activity. Problem 571724855 Overweight (E66.3) Active confirmed He has gained 7 pounds. His body mass index is 27. We discussed his weight loss strategy. I recommended aggressive weight loss through regular physical activity and diet restricted in calories. Problem 73966080 Hypertension (I10) Active confirmed His blood pressure is stable today. Problem 38257578 Other chronic pain (G89.29) Active confirmed Problem 763583367 Solitary pulmonary nodule (R91.1) Active confirmed Problem 029754366 Environmental allergies (Z91.09) Active confirmed He has noted itching around his eyes and nasal congestion. He is using ibqj-cyv-uthmn er medication. I recommended fluticasone and loratadine. 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 Problem 145408458 DVT (deep venous thrombosis) (I82.409) Active confirmed He has had no blood clots. Problem 144542481 Lung cancer (C34.90) Active confirmed He remains in remission with no relapse. He is no longer smoking. Problem 0532908 Protein S deficiency (D68.59) Active confirmed He is doing well with his chronic anticoagulatio n. The protein S deficiency is no indication for lifelong therapy. Problem 25365932 Other depression (F32.89) Active confirmed His medication was increased to 100 mg daily. A follow-up visit was arranged. He has no suicidal ideation and is beginning to experience improvement. Problem 686333491 Benign prostatic hyperplasia, unspecified whether lower urinary tract symptoms present (N40.0) Active confirmed He reports rising from sleep about twice a night to urinate. We have discussed some lifestyle modifications he could make to reduce this nocturia. Problem 83295099 Chronic nonintractable headache, unspecified headache type (R51) Active confirmed His headaches are improved. They're less frequent. He will continue on current therapy. Problem Disease caused by Severe acute respiratory syndrome coronavirus 2 (disorder) (264045215) COVID-19 virus infection (U07.1) Active confirmed He has recovered from his collins virus infection with no lung symptoms. Problem 044878976815 Skin lesion of face (L98.9) Active confirmed The area on his nose has the appearance of an actinic keratosis. It has only recently appeared. I have made a referral to dermatology for definitive diagnosis and treatment. 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 ; Environmental allergies Z91.09 ; 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 ; DVT (deep venous thrombosis) I82.409 and Overweight (BMI 25.0-29.9) E66.3 Jose Felder III, MD [address] [place] [address] [address] [place] [address] 01/27/2024 Jose Felder 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 ; Overweight (BMI 25.0-29.9) E66.3 ; Benign prostatic hyperplasia, unspecified whether lower urinary tract symptoms present N40.0 ; Former smoker Z87.891 ; Lung cancer C34.90 and Environmental allergies Z91.09 Jose Felder III, MD [address] [place] [address] [address] [place] [address] 06/07/2024 Jose Felder 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 ; Hypertension I10 ; Overweight E66.3 ; Episodic memory loss R41.3 ; Former smoker Z87.891 and Lung cancer C34.90 Jose Felder III, MD [address] [place] [address] [address] [place] [address] 08/23/2024 Jose Felder COVID-19 virus infec tion U07.1 ; 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 ; Former smoker Z87.891 ; Lung cancer C34.90 ; Environmental allergies Z91.09 and Overweight E66.3 Jose eFlder III, MD [address] [place] [address] [place] [address] 10/04/2024 Jose Felder COVID-19 virus infec tion U07.1 ; Chronic nonintractable headache, unspecified headache type R51 ; Benign prostatic hyperplasia, unspecified whether lower urinary tract symptoms present N40.0 ; 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 ; Former smoker Z87.891 ; Lung cancer C34.90 ; Environmental allergies Z91.09 ; Overweight (BMI 25.0-29.9) E66.3 ; 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 ; Other depression F32.89 and Overweight E66.3 Jose Felder III, MD [address] [place] [address] [place] [address] 10/15/2024 Jose Felder Skin lesion of face L98.9 ; 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 ; Former smoker Z87.891 ; Lung cancer C34.90 ; Environmental allergies Z91.09 ; Hypertension I10 ; DVT (deep venous thrombosis) I82.409 ; Overweight (BMI 25.0-29.9) E66.3 ; Chronic nonintractable headache, unspecified headache type R51 ; 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 and Other depression F32.89 Jose Felder III, MD [address] [place] [address] [place] [address] 03/15/2024 Jose Felder III, MD [address] [place] [address] [place] [address] 08/23/2024 Jose Felder III, MD [address] [place] [address] [place] [address] 08/31/2024 Jose HUSAINID-19 virus infec tion U07.1 Jose Felder III, MD [address] [place] [address] [place] [address] 08/31/2024 Jose Felder COVID-19 virus infec tion U07.1 Jose Felder III, MD [address] [place] [address] [place] [address] 09/17/2024 Jose Felder Assessments Encounter Date Diagnosis (ICD Code) Assessment Notes Treat ment Notes Treatment Clinical Notes 01/07/2024 Former smoker (ICD-1 0 - Z87.891) He [...] remission since he finished his chemotherapy. 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 08/23/2024 COVID-19 virus infection (ICD-10 - U07.1) I have prescribed Paxlovid And arrange followup telephone calls every 48 hours. He seems stable at this time. 10/04/2024 Chronic nonintractable headache, unspecified headache type (ICD-10 - R51) His headaches are improved. They're less frequent. He will continue on current therapy. 10/04/2024 COVID-19 virus infection (ICD-10 - U07.1) He has recovered from his collins virus infection with no lung symptoms. 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 10/15/2024 Skin lesion of face (ICD-10 - L98.9) The area on his nose has the appearance of an actinic keratosis. It has only recently appeared. I have made a referral to dermatology for definitive diagnosis and treatment. 08/31/2024 COVID-19 virus infection (ICD-10 - U07.1) I have prescribed Paxlovid And arrange followup telephone calls every 48 hours. He seems stable at this time. 08/31/2024 COVID-19 virus infection (ICD-10 - U07.1) I have prescribed Paxlovid And arrange followup telephone calls every 48 hours. He seems stable at this time. 01/07/2024 Lung cancer (ICD-10 - C34.90) He [...] physical activity and diet restricted in calories. 08/23/2024 Former smoker (ICD-1 0 - Z87.891) He is highly motivated not to smoke and has a plan to prevent relapse in times of stress or illness. 10/04/2024 Benign prostatic hyperplasia, unspecified whether lower urinary tract symptoms present (ICD-10 - N40.0) He reports rising from sleep about twice a night to urinate. We have discussed some lifestyle modifications he could make to reduce this nocturia. 10/15/2024 Former smoker (ICD-1 0 - Z87.891) He is highly motivated not to smoke and has a plan to prevent relapse in times of stress or illness. 01/07/2024 Hypertension (ICD-10 - I10) His blood pressure is stable and controlled. His last value was 138/82. He was continued on his current regimen. I advised aggressive weight loss and sodium restriction. 01/27/2024 Former smoker (ICD-1 0 - Z87.891) He [...] No sign of dementia was found today. 08/23/2024 Lung cancer (ICD-10 - C34.90) He remains in remission with no relapse. He is no longer smoking. 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 10/15/2024 Lung cancer (ICD-10 - C34.90) He remains in remission with no relapse. He is no longer smoking. 01/07/2024 Diabetes mellitus type 2 in nonobese (ICD-10 - E11.9) His diabetes is well controlled with current medication. No changes. Regimen was needed today. 01/27/2024 Lung cancer (ICD-10 - C34.90) He remains in remission with no relapse. He is no longer smoking. 06/07/2024 Former smoker (ICD-1 0 - Z87.891) He is highly motivated not to smoke and has a plan to prevent relapse in times of stress or illness. 08/23/2024 Environmental allergies (ICD-10 - Z91.09) He has noted itching around his eyes and nasal congestion. He is using glmx-hfm-fqqdsep medication. I recommended fluticasone and loratadine. 10/04/2024 Former smoker (ICD-1 0 - Z87.891) He is highly motivated not to smoke and has a plan to prevent relapse in times of stress or illness. 10/15/2024 Environmental allergies (ICD-10 - Z91.09) He has noted itching around his eyes and nasal congestion. He is using zdlh-ddy-hltjmqn medication. I recommended fluticasone and loratadine. 01/07/2024 Environmental allergies (ICD-10 - Z91.09) He has noted itching around his eyes and nasal congestion. He is using hsif-kos-lhfstdf medication. I recommended fluticasone and loratadine. 01/27/2024 Environmental allergies (ICD-10 - Z91.09) He has noted itching around his eyes and nasal congestion. He is using oycs-hms-genvpro medication. I recommended fluticasone and loratadine. 06/07/2024 Lung cancer (ICD-10 - C34.90) He remains in remission with no relapse. He is no longer smoking. 08/23/2024 Overweight (ICD-10 - E66.3) He has gained 7 pounds. His body mass index is 27. We discussed his weight loss strategy. I recommended aggressive weight loss through regular physical activity and diet restricted in calories. 10/04/2024 Lung cancer (ICD-10 - C34.90) He remains in remission with no relapse. He is no longer smoking. 10/15/2024 Hypertension (ICD-10 - I10) His blood pressure is stable today. 01/07/2024 Protein S deficiency (ICD-10 - D68.59) He is doing well with his chronic anticoagulation. The protein S deficiency is no indication for lifelong therapy. 10/04/2024 Environmental allergies (ICD-10 - Z91.09) He has noted itching around his eyes and nasal congestion. He is using qlic-uxq-xkfaoer medication. I recommended fluticasone and loratadine. 10/15/2024 DVT (deep venous thrombosis) (ICD-10 - I82.409) He has had no blood clots. 01/07/2024 DVT (deep venous thrombosis) (ICD-10 - I82.409) He has had no blood clots. 10/04/2024 Overweight (BMI 25.0-29.9) (ICD-10 - E66.3) He has lost 5 pounds and is still overweight. We discussed diet and nutrition. We made a plan to lose weight at a rate of one half of a pound per week through a diet restricted in calories combined with physical activity. 10/15/2024 Overweight (BMI 25.0-29.9) (ICD-10 - E66.3) He has lost 5 pounds and is still overweight. We discussed diet and nutrition. We made a plan to lose weight at a rate of one half of a pound per week through a diet restricted in calories combined with physical activity. 01/07/2024 Overweight (BMI 25.0-29.9) (ICD-10 - E66.3) We have reviewed the elements of his weight loss strategy and diabetic diet. We have discussed nutrition today. He will try to avoid weight gain during the winter holidays and then lose weight in the spring. 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 The protein S deficiency is no indication for lifelong therapy. 10/15/2024 Chronic nonintractable headache, unspecified headache type (ICD-10 - R51) His headaches are improved. They're less frequent. He will continue on current therapy. 10/04/2024 Other depression (ICD-10 - F32.89) His medication was increased to 100 mg daily. A follow-up visit was arranged. He has no suicidal ideation and is beginning to experience improvement. 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 The protein S deficiency is no indication for lifelong therapy. 10/04/2024 Overweight (ICD-10 - E66.3) He has gained 7 pounds. His body mass index is 27. We discussed his weight loss strategy. I recommended aggressive weight loss through regular physical activity and diet restricted in calories. 10/15/2024 Other depression (ICD-10 - F32.89) His medication was increased to 100 mg daily. A follow-up visit was arranged. He has no suicidal ideation and is beginning to experience improvement. Plan Of Treatment Pending Test Test Name Order Date PROFILE, FASTING (COMPREHENSIVE METABOLI C) 11/18/2019 PROFILE, FASTING (COMPREHENSIVE METABOLI C) 12/09/2022 PROFILE, FASTING (COMPREHENSIVE METABOLI C) 01/27/2024 PROFILE, FASTING (COMPREHENSIVE METABOLI C) 09/30/2023 PROFILE, FASTING (COMPREHENSIVE METABOLI C) 10/04/2024 PROFILE, FASTING (COMPREHENSIVE METABOLI C) 11/09/2021 PROFILE, FASTING (COMPREHENSIVE METABOLI C) 01/25/2020 PROFILE, FASTING (COMPREHENSIVE METABOLI C) 07/11/2021 PROFILE, FASTING (COMPREHENSIVE METABOLI C) 06/19/2022 PROFILE, FASTING (COMPREHENSIVE METABOLI C) 06/18/2023 PROFILE, FASTING (COMPREHENSIVE METABOLI C) 06/07/2024 PROFILE, FASTING (COMPREHENSIVE METABOLI C) 02/26/2021 PROFILE, RANDOM (COMPREHENSIVE METABOLIC ) 10/14/2018 PROFILE, RANDOM (COMPREHENSIVE METABOLIC ) 05/08/2017 PROFILE, RANDOM (COMPREHENSIVE METABOLIC ) 10/30/2020 PROFILE, RANDOM (COMPREHENSIVE METABOLIC ) 08/19/2019 PROFILE, RANDOM (COMPREHENSIVE METABOLIC ) 08/12/2022 PROFILE, RANDOM (COMPREHENSIVE METABOLIC ) 07/06/2018 HEMOGLOBIN A1C (GLYCOHEMOGLOBIN) 020 AMYLASE 03/26/2022 LIPASE 03/26/2022 LIPID PANEL 01/25/2020 LIPID PANEL 02/26/2021 LIPID PANEL 11/18/2019 LIPID PANEL 12/09/2022 LIPID PANEL 10/30/2020 LIPID PANEL 11/09/2021 LIPID PANEL 08/19/2019 LIPID PANEL 08/12/2022 LIPID PANEL 06/19/2022 PSA, TOTAL 06/19/2022 PSA, TOTAL 01/27/2024 PSA, TOTAL 12/09/2022 PSA, TOTAL 09/30/2023 PSA, TOTAL 10/04/2024 PSA, TOTAL 07/11/2021 PSA, TOTAL+FREE 02/26/2021 CBC w DIFF 06/07/2024 CBC w DIFF 07/11/2021 CBC w DIFF 01/25/2020 CBC w DIFF 10/14/2018 CBC w DIFF 06/19/2022 CBC w DIFF 05/08/2017 CBC w DIFF 03/26/2022 CBC w DIFF 11/18/2019 CBC w DIFF 02/26/2021 CBC w DIFF 11/21/2017 CBC w DIFF 12/09/2022 CBC w DIFF 09/30/2023 CBC w DIFF 10/30/2020 CBC w DIFF 10/04/2024 CBC w DIFF 11/09/2021 CBC w DIFF 08/19/2019 CBC w DIFF 08/12/2022 CBC w DIFF 07/06/2018 SED RATE (ESR) 03/26/2022 CBC WITH AUTO DIFF 06/18/2023 CBC WITH AUTO DIFF 01/27/2024 Lipid Panel 10/04/2024 Lipid Panel 06/18/2023 Lipid Panel 06/07/2024 Lipid Panel 07/11/2021 Lipid Panel 01/27/2024 Lipid Panel 09/30/2023 Next Appt Details Provider Name:Jose Washingtonrne, 02/03/2025 10:00:00 AM, [address] [place] [address] [address], [place], [address], Provider Name:Jose Acostane, 10/05/2025 02:30:00 PM, [address] [facility] [address], [place], [address], Insurance Providers Payer Name Payer Address Payer Phone Subscriber Number Group Number Insured Name Patient Relationship to Insured Coverage Start Date Coverage End Date [employer] [address] [place], [place] [phone] [id number] 3 Jem Gallardo Self - patient is the insured 4 MEDICARE NGS [address] [place] [address] [id number] Jem Gallardo Self - patient is the insured Medical (General) History Medical History History ICD Code migraine headaches allergies hypertension anal fissure staphylococcal infection 1999 chronic lymphocytic leukemia in [facility] lung cancer, non-small cell obesity former smoker dvt february 2015 right leg protein S deficiency Covid 22 August 2024 Surgical History Surgery Date(Month/Year) No history Cyst removed from his back 08/2022 cataract right eye 06/2018 FNA superior mediastinal mass Hospitalization History Reason Date(Month/Year) No history
--- OUTSIDE RECORDS SUMMARY | 2024-11-12 08:59 | XMS_ITS ---
Author Organization Jose Felder III, MD Address [address] [place] [address] [address] [place] [place] [address] Care Team Providers Care Serging Machine Operator Name Role Phone Jose Felder Primary Care Provider REASON FOR VISIT Message Social History Sex Assigned At : Social History Observation Description Sex Assigned At Male Encounters Encounter Location Date Provider Diagnosis Jose Felder III, MD [address] [place] [address] [place] [address] 09/17/2024 Jose Felder Plan Of Treatment Next Appt Details Provider Name:Jose Felder, 02/03/2025 10:00:00 AM, [address] [place] [address] [place], [address], Provider Name:Jose Felder, 10/05/2025 02:30:00 PM, [address] [place] [address] [place], [address], Progress Notes * Jem QUINTEROSDOB:1945 ( 79 yo M)Acc No.[id number]:09/17/2024 Patient:SusanEMERSONJem Drew :1945???Age:79 Y???Sex:Male Address:[address] [place] [address] * true * Date:? Generated for Printi ng/Apple/Rubenitting on:?11/12/2024 08:58 AM EDT
[2024-11-12 09:03] LABS: Prothrombin Time Whole Bld POC 24.5 sec (11.1-13.5)
== END 2024-11-12 09:00 | disposition home or self-care (01) ==
LOC: HO.ACS 08:49
PROVIDERS: PCP Internal Medicine Medical Oncology; Visit Provider Internal Medicine Medical Oncology
DX: Z79.01 Long term (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 (principal)

== ENCOUNTER → 2024-11-12 08:49 | Outpatient (BNVA) | payer MEDICARE, SELFPAY | PROVIDERS: PCP Internal Medicine Medical Oncology; Visit Provider Internal Medicine Medical Oncology | DX: Z86.718 Personal history of other venous thrombosis and embolism (principal); Z51.81 Encounter for therapeutic drug level monitoring; Z79.01 Long term (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 | CPT/HCPCS: 85610; 99211 ==

== ENCOUNTER 2024-11-30 08:22 | Outpatient (AMB) | payer MEDICARE, SELFPAY ==
[2024-11-30 08:32] LABS: Prothrombin Time Whole Bld POC 21.1 sec (11.1-13.5); ~PT, ~INR - Anti Coag Clinic 1.8 (0.9-1.1)
--- OUTSIDE RECORDS SUMMARY | 2024-11-30 08:37 | XMS_ITS | Encounter Summary ---
Author Organization [facility] Address [address] [place] [address] Care Team Providers Care Electric Spot Welder Name Role Phone Wilner Paulson MD Primary Care Provider Unavailable Jose Felder MD Primary Care Provider Vladimir kapoor Encounter Details Date Type Department Care Team Description 12/18/2016 [facility] Medical Records [address] [place] [id number] Abstract, Provider Social History Tobacco Use Types [...] on filedocumented in this encounter Care Teams Electric Spot Welder Relationship Specialty Start Date End Date Wilner Paulson MD PCP - General Internal Medicine 11/13/1601/02 Jose Felder MD PCP - General Oncology/Hematology 01/19/18 documented as of this encounter
--- OUTSIDE RECORDS SUMMARY | 2024-11-30 08:37 | XMS_ITS | Encounter Summary ---
[facility] Address [address] [place] [address] Care Team Providers Care Electronic Equipment Installer Name Role Phone Jose Felder MD Primary Care Provider Vladimir kapoor Reason for Visit * Reason Onset Date Comments Appointment Cancelled 06/30/2018 Encounter Details Date Type Department Care Team Description 06/30/2018 Telephone Pulmonology - [place] [address] [facility] [address] [place] [address] Tanisha Gonzalez, [facility] [address] [place] [address] Appointment Cancelled Social History Tobacco Use Types [...] on filedocumented in this encounter Care Teams Electronic Equipment Installer Relationship Specialty Start Date End Date Jose Felder MD PCP - General Oncology/Hematology 01/19/18 documented as of this encounter
--- OUTSIDE RECORDS SUMMARY | 2024-11-30 08:37 | XMS_ITS | Encounter Summary ---
[facility] Address [address] [place] [address] Care Team Providers Care Ribbon Blockmaker Name Role Phone Wilner Paulson MD Primary Care Provider Unavailable Jose Felder MD Primary Care Provider Vladimir kapoor Encounter Details Date Type Department Care Team Description 12/02/2016 Release of Information Medical Records [address] [place] [id number] Abstract, Provider Social History Tobacco Use Types [...] on filedocumented in this encounter Care Teams Ribbon Blockmaker Relationship Specialty Start Date End Date Wilner Paulson MD PCP - General Internal Medicine 11/13/1601/02 Jose Felder MD PCP - General Oncology/Hematology 01/19/18 documented as of this encounter
--- OUTSIDE RECORDS SUMMARY | 2024-11-30 08:37 | XMS_ITS | Encounter Summary ---
Author Organization [facility] Address [address] [place] [address] Care Team Providers Care Cook Tortilla Name Role Phone Wilner Paulson MD Primary Care Provider Unavailable Jose Felder MD Primary Care Provider Vladimir kapoor Encounter Details Date Type Department Care Team Description 04/16/2017 Wellness Visit Medical Records [address] [place] [id number] Wilner Paulson MD Social History Tobacco Use [...] on filedocumented in this encounter Care Teams Cook Tortilla Relationship Specialty Start Date End Date Wilner Paulson MD PCP - General Internal Medicine 11/13/1601/02 Jose Felder MD PCP - General Oncology/Hematology 01/19/18 documented as of this encounter
--- OUTSIDE RECORDS SUMMARY | 2024-11-30 08:37 | XMS_ITS | Encounter Summary ---
Author Organization [facility] Address [address] [place] [address] Care Team Providers Care Tire Shop Manager Name Role Phone Wilner Paulson MD Primary Care Provider Jose Hines MD Primary Care Provider Vladimir kapoor Reason for Visit * Reason Onset Date Comments TEST RESULTS 07/02/2017 Encounter Details Date Type Department Care Team Description 07/02/2017 Telephone Adult Medicine - [address] [address] Wilner Paulson MD TEST RESULTS Social History [...] advised of message below Wilner Paulson MD [facility] Adult Med Floor Nurse ? [...] on filedocumented in this encounter Care Teams Tire Shop Manager Relationship Specialty Start Date End Date Wilner Paulson MD PCP - General Internal Medicine 11/13/1601/02 Jose Felder MD PCP - General Oncology/Hematology 01/19/18 documented as of this encounter
--- NOTE | 2024-11-30 08:47 | MHC.OFFVISCO ---
Intake Intake Visit Reasons: Anticoagulation Allergies Seasonal Allergies Allergy (Intermediate, Verified 11/30/24 08:24) Cough venlafaxine Adverse Reaction (Intermediate, Verified 11/30/24 08:24) Headache Medication List - Last Reconciled 11/30/24 by Brenda Trimble RN losartan 25 mg PO DAILY simvastatin 40 mg PO DAILY sumatriptan succinate 100 mg PO PRN trazodone 50 mg PO BEDTIME venlafaxine 50 mg PO DAILY warfarin 5 mg See Protocol PO DAILY Nursing Note INR: 1.8 almost therapeutic range- has been eating more pea soup lately that may have lowered the INR Medications and supplements reviewed No changes in health, diet, medications, or supplements, Denies any signs and symptoms of bleeding or bruising or clotting. Bleeding, bruising, clotting discussed Nutritional guidance given- no greens today - when eating more pea soup eat orange and reds to offset it Dose: booster dose this week 7.5mg x 4 days then resume 7.5mg x 3 days/ 5mg x 4 days F/U INR: 2 weeks if therapeutic go 3 weeks Patient verbalizes understanding of instructions given Anti-Coag Initial Assessment Social Hx Patient Tobacco Use Status: Former Tobacco user Tobacco use type: Cigar alcohol intake: never Coding Level of Care Code Est Patient Level 1 Diagnoses Current use of anticoagulant therapy Z79.01 Results AMB INR Fingerstick AMB INR Fingerstick 1.8 Last Edit by Brenda Trimble RN on 11/30/24 08:38 MANUAL Assessment & Plan Assessment & Plan (1) Current use of anticoagulant therapy: Code(s): Z79.01 - terminal clerk (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 Medications: New vitamin B complex PO [VITAMIN D 3] PO
== END 2024-11-30 08:50 | disposition home or self-care (01) ==
LOC: HO.ACS 08:22
PROVIDERS: PCP Internal Medicine Medical Oncology; Visit Provider Internal Medicine Medical Oncology
DX: Z79.01 Long term (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 (principal)

== ENCOUNTER → 2024-11-30 08:22 | Outpatient (BNVA) | payer MEDICARE, SELFPAY | PROVIDERS: PCP Internal Medicine Medical Oncology; Visit Provider Internal Medicine Medical Oncology | DX: Z86.718 Personal history of other venous thrombosis and embolism (principal); Z79.01 Long term (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; Z51.81 Encounter for therapeutic drug level monitoring | CPT/HCPCS: 85610; 99211 ==

== ENCOUNTER 2024-12-14 08:24 | Outpatient (AMB) | payer MEDICARE, SELFPAY ==
[2024-12-14 08:28] LABS: Prothrombin Time Whole Bld POC 24.1 sec (11.1-13.5)
--- OUTSIDE RECORDS SUMMARY | 2024-12-14 08:34 | XMS_ITS ---
Author Organization Jose Felder III, MD Address [address] [address] Care Team Providers Care Med Peds Name Role Phone Jose Felder Primary Care Provider [phone] Allergies Allergen (clinical drug ingredient) Drug/Non Drug [...] Provider Speciality Internal M edicine Referred Provider [facility] [place] ([facility]) Referred Provider Specialty Dermatology General Notes Tamie [...] Problem Status W/U Status Risk Notes Problem [id number] Skin lesion of face (L98.9) Active confirmed [...] Provider Diagnosis Jose Felder III, MD [address] [place] [address] [place] [address] 10/15/2024 Jose Felder Skin lesion of face [...] eyes and nasal congestion. He is using csrt-ish-ovthxwe medication. I recommended fluticasone and loratadine. 10/15/2024 [...] New Lesion of Nose, [facility] ([facility] Next Appt Details Follow Up: As Scheduled, Pound son: OV Provider Name:Jose Felder, 02/03/2025 10:00:00 AM, [address] [place] [address] [address], [place], [address], Provider Name:Jose Felder, 10/05/2025 02:30:00 PM, [address] [facility] [address], [place], [address], Progress Notes * Jem QUINTEROSDOB:1945 ( 79 yo M)Acc No.[id number]:10/15/2024 Progress Notes Patient:?Jem QUINTEROS Provider:?Jose Felder MD :1945???Age:79 Y???Sex:Male Darius e:10/15/2024 Address:[address] [place] [address] [id number] Subjective: * Chief Complaints: * ???Skin lesion, [...] non-user?Ex-cigarette smoker ???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 He is using wvhj-pmd-isorzto medication. I recommended fluticasone and loratadine.???6.?Hypertension - [...] urged to quit.?10/15/2024 * Follow Up:?As Scheduled (Pound son: OV) * Images: * Sign off status: Completed true * Provider:?Jose Felder MD Date:?10/02 Generated for Frandy mittal/Apple/Rubenitting on:?12/14/2024 08:34 AM EDT History and Physical Notes * [...] Jose Felder Derm atology[facility] ([facility] Evaluate and Treat New Lesion of Nose
--- OUTSIDE RECORDS SUMMARY | 2024-12-14 08:35 | XMS_ITS | Patient Health Record ---
Author Organization Jose Felder III, MD Address [address] [place] [address] DR PACKER Kervin [place] [address] Care Team Providers Care Email Campaign Specialist Name Role Phone Jose Felder Primary Care Provider [phone] Allergies Allergen (clinical drug ingredient) Drug/Non Drug [...] Negative - INR WHOLE BLOOD POC Reviewed date:12/17/2023 09:46:09 AM Interpretation: Performing Lab:[facility], [address] [place] [phone] Notes/Report: PT, INR - Anti [facility]ag Clinic 2.3 0.9-1.1 METER #: [id number] INTERNATIONAL NORMALIZED RATIO (INR) REFERENCE RANGES Reference [...] OC Reviewed date:12/17/2023 09:46:09 AM Interpretation: Performing Lab:[facility], [address] [place] [phone] Notes/Report: Prothrombin Time Whole Bld POC 27.3 11.1-13.5 sec INR WHOLE BLOOD POC Reviewed date:01/24/2024 05:54:24 PM Interpretation: Performing Lab:[facility], [address] [place] [phone] Notes/Report: PT, INR - Anti [facility]ag Clinic 3.3 0.9-1.1 METER #: [id number] INTERNATIONAL NORMALIZED RATIO (INR) REFERENCE RANGES Reference [...] OC Reviewed date:01/24/2024 05:54:24 PM Interpretation: Performing Lab:[facility], [address] [place] [phone] Notes/Report: Prothrombin Time Whole Bld POC 39.9 11.1-13.5 sec Complete Blood Count Auto Di ff Reviewed date:02/10/2024 12:49:39 PM Interpretation: Performing Lab:[facility], [address] [place] [phone] Notes/Report: White Blood Count 9.1 4.8-10.8 X10*3/uL [...] NRBC Abs Auto 0.000 0.0-0.012 X10*3/uL Comprehensive [place]. Panel Fa st Reviewed date:02/10/2024 12:49:39 PM Interpretation: Performing Lab:[facility], [address] [place] [phone] Notes/Report: Sodium 142 135-145 mmol/L Potassium 4.3 3.3-5.1 mmol/L Chloride 109 96-108 mmol/L Carbon Dioxide 26 22-29 mmol/L Anion Gap 11 12-20 Blood Urea Nitrogen 23 9-16 mg/dL Creatinine 0.76 0.5-1.4 mg/dL Estimated Glomerular Filt Rate > 60 NOTE: For -Malaysian individuals, multiply the result by 1.210. Chronic [...] Panel Reviewed date:02/10/2024 12:49:39 PM Interpretation: Performing Lab:[address] [phone] Notes/Report: Triglycerides 59 <150 mg/dL Desirable Triglyceride: [...] Antigen Reviewed date:02/10/2024 12:49:39 PM Interpretation: Performing Lab:[address] [address] Notes/Report: Prostate Specific Antigen 1.37 <0.05-4.0 ng/mL PSA methodology: Sheets Alinity i Chemiluminescent Microparticle Immunoassay (CMIA) INR WHOLE BLOOD POC Reviewed date:02/10/2024 12:49:39 PM Interpretation: Performing Lab:[address] [address] Notes/Report: PT, INR - Anti Coag Clinic 1.9 0.9-1.1 METER #: [id number] INTERNATIONAL NORMALIZED RATIO (INR) REFERENCE RANGES Reference [...] OC Reviewed date:02/10/2024 12:49:39 PM Interpretation: Performing Lab:[facility], [address] [place] [phone] Notes/Report: Prothrombin Time Whole Bld POC 22.3 11.1-13.5 sec INR WHOLE BLOOD POC Reviewed date:03/21/2024 06:44:39 AM Interpretation: Performing Lab:[facility], [address] [place] [phone] Notes/Report: PT, INR - [facility]ag Clinic 1.7 0.9-1.1 METER #: [id number] INTERNATIONAL NORMALIZED RATIO (INR) REFERENCE RANGES Reference [...] OC Reviewed date:03/21/2024 06:44:39 AM Interpretation: Performing Lab:[facility], [address] [place] [phone] Notes/Report: Prothrombin Time Whole Bld POC 20.4 11.1-13.[address] head/brain wo con Reviewed date:03/21/2024 06:44:39 AM Interpretation: Performing Lab: Notes/Report: [address] [address] [address] Scan Report Signed Patient: Jem Gallardo MR#: [id number] [birth year] : 1945 Acct:[id number] Age/Sex: 79 / M ADM Date: 03/15/24 Loc: HO.ED Attending Dr: Ordering Physician: Lynne Fields Date of Service: 03/15/24 Procedure(s): CT head/brain wo IV con Accession Number(s): [id number] cc: Jose Felder MD; Lynne Fields EXAMINATION: [...] in OV> 03/15/24 1601 DD/ 1227 TD/TT: Industrial Safety And Health Technician: [place] [address] CT Scan Report Signed Patient: Jem Gallardo MR#: [id number] 3 : 1945 Acct:[id number] Age/Sex: 79 / M ADM Date: 03/15/24 Loc: HO.ED Attending Dr: Ordering Physician: Lynne Fields Date of Service: 03/15/24 Procedure(s): CT head/brain wo IV con Accession Number(s): [id number] cc: Jose Felder MD; Lynne Fields EXAMINATION: [...] ter small vessel ischemic changes. Dictated By: Ani Stone MD Signed By: <Electronically signed by Ani Stone MD in OV> 03/15/24 1601 DD/ 1227 TD/TT: Industrial Safety And Health Technician: INR WHOLE BLOOD POC Reviewed date:03/25/2024 08:29:44 PM Interpretation: Performing Lab:[facility], [address] [place] [phone] Notes/Report: PT, INR - Anti [facility]ag Clinic 2.1 0.9-1.1 METER #: [id number] INTERNATIONAL NORMALIZED RATIO (INR) REFERENCE RANGES Reference [...] OC Reviewed date:03/25/2024 08:29:44 PM Interpretation: Performing Lab:[facility], [address] [place] [phone] Notes/Report: Prothrombin Time Whole Bld POC 25.8 11.1-13.5 sec INR WHOLE BLOOD POC Reviewed date:04/21/2024 06:39:37 AM Interpretation: Performing Lab:[facility], [address] [place] [phone] Notes/Report: PT, INR - [facility] 1.9 0.9-1.1 METER #: [id number] INTERNATIONAL NORMALIZED RATIO (INR) REFERENCE RANGES Reference [...] OC Reviewed date:04/21/2024 06:39:38 AM Interpretation: Performing Lab:[facility], [address] [place] [phone] Notes/Report: Prothrombin Time Whole Bld POC 22.2 11.1-13.5 sec INR WHOLE BLOOD POC Reviewed date:05/18/2024 11:38:32 AM Interpretation: Performing Lab:[facility], [address] [place] [phone] Notes/Report: PT, INR - [facility]ag [facility] 2.1 0.9-1.1 METER #: [id number] INTERNATIONAL NORMALIZED RATIO (INR) REFERENCE RANGES Reference [...] OC Reviewed date:05/18/2024 11:38:32 AM Interpretation: Performing Lab:[facility], [address] [place] [phone] Notes/Report: Prothrombin Time Whole Bld POC 25.7 11.1-13.5 sec Complete Blood Count Auto Di ff Reviewed date:06/07/2024 11:48:38 AM Interpretation: Performing Lab:[facility], [address] [place] [phone] Notes/Report: White Blood Count 9.5 4.8-10.8 X10*3/uL [...] NRBC Abs Auto 0.000 0.0-0.012 X10*3/uL Comprehensive [place]. Panel Fa st Reviewed date:06/07/2024 11:48:38 AM Interpretation: Performing Lab:[facility], [address] [place] [phone] Notes/Report: Sodium 144 135-145 mmol/L Potassium 4.7 3.3-5.1 mmol/L Chloride 108 96-108 mmol/L Carbon Dioxide 27 22-29 mmol/L Anion Gap 14 12-20 Blood Urea Nitrogen 20 9-16 mg/dL Creatinine 0.79 0.5-1.4 mg/dL Estimated Glomerular Filt Rate > 60 NOTE: For -Malaysian individuals, multiply the result by 1.210. Chronic [...] Panel Reviewed date:06/07/2024 11:48:38 AM Interpretation: Performing Lab:[facility], [address] [place] [phone] Notes/Report: Triglycerides 66 <150 mg/dL Desirable Triglyceride: [...] Antigen Reviewed date:06/07/2024 11:48:38 AM Interpretation: Performing Lab:[facility], [address] [place] [phone] Notes/Report: Prostate Specific Antigen 1.23 <0.05-4.0 ng/mL PSA methodology: Sheets Alinity i Chemiluminescent Microparticle Immunoassay (CMIA) INR WHOLE BLOOD POC Reviewed date:06/15/2024 08:32:55 AM Interpretation: Performing Lab:[facility], [address] [place] [phone] Notes/Report: PT, INR - Anti Coag Clinic 2.0 0.9-1.1 METER #: [id number] INTERNATIONAL NORMALIZED RATIO (INR) REFERENCE RANGES Reference [...] OC Reviewed date:06/15/2024 08:32:55 AM Interpretation: Performing Lab:[facility], [address] [place] [phone] Notes/Report: Prothrombin Time Whole Bld POC 24.4 11.1-13.5 sec INR WHOLE BLOOD POC Reviewed date:07/16/2024 08:35:52 AM Interpretation: Performing Lab:[facility], [address] [place] [phone] Notes/Report: PT, INR - [facility]ag [facility] 1.6 0.9-1.1 METER #: [id number] INTERNATIONAL NORMALIZED RATIO (INR) REFERENCE RANGES Reference [...] OC Reviewed date:07/16/2024 08:35:52 AM Interpretation: Performing Lab:[facility], [address] [place] [phone] Notes/Report: Prothrombin Time Whole Bld POC 19.4 11.1-13.5 sec INR WHOLE BLOOD POC Reviewed date:07/23/2024 09:07:49 PM Interpretation: Performing Lab:[facility], [address] [place] [phone] Notes/Report: PT, INR - [facility]ag [facility] 1.8 0.9-1.1 METER #: [id number] INTERNATIONAL NORMALIZED RATIO (INR) REFERENCE RANGES Reference [...] OC Reviewed date:07/23/2024 09:07:49 PM Interpretation: Performing Lab:[facility], [address] [place] [phone] Notes/Report: Prothrombin Time Whole Bld POC 21.4 11.1-13.5 sec INR WHOLE BLOOD POC Reviewed date:08/06/2024 08:49:39 PM Interpretation: Performing Lab:[facility], [address] [place] [phone] Notes/Report: PT, INR - [facility]ag [facility] 2.1 0.9-1.1 METER #: [id number] INTERNATIONAL NORMALIZED RATIO (INR) REFERENCE RANGES Reference [...] OC Reviewed date:08/06/2024 08:49:39 PM Interpretation: Performing Lab:[facility], [address] [place] [phone] Notes/Report: Prothrombin Time Whole Bld POC 25.3 11.1-13.5 sec INR WHOLE BLOOD POC Reviewed date:09/02/2024 06:23:24 AM Interpretation: Performing Lab:[facility], [address] [place] [phone] Notes/Report: PT, INR - [facility]ag [facility] 1.6 0.9-1.1 METER #: [id number] INTERNATIONAL NORMALIZED RATIO (INR) REFERENCE RANGES Reference [...] OC Reviewed date:09/02/2024 06:23:24 AM Interpretation: Performing Lab:[facility], [address] [place] [phone] Notes/Report: Prothrombin Time Whole Bld POC 18.8 11.1-13.5 sec INR WHOLE BLOOD POC Reviewed date:09/05/2024 08:45:11 AM Interpretation: Performing Lab:[facility], [address] [place] [phone] Notes/Report: PT, INR - [facility] 2.0 0.9-1.1 METER #: [id number] INTERNATIONAL NORMALIZED RATIO (INR) REFERENCE RANGES Reference [...] OC Reviewed date:09/05/2024 08:45:11 AM Interpretation: Performing Lab:[facility], [address] [place] [phone] Notes/Report: Prothrombin Time Whole Bld POC 24.2 11.1-13.5 sec INR WHOLE BLOOD POC Reviewed date:09/19/2024 09:54:44 AM Interpretation: Performing Lab:[facility], [address] [place] [phone] Notes/Report: PT, INR - [facility] 2.6 0.9-1.1 METER #: [id number] INTERNATIONAL NORMALIZED RATIO (INR) REFERENCE RANGES Reference [...] OC Reviewed date:09/19/2024 09:54:44 AM Interpretation: Performing Lab:[facility], [address] [place] [phone] Notes/Report: Prothrombin Time Whole Bld POC 31.6 11.1-13.5 sec INR WHOLE BLOOD POC Reviewed date:09/24/2024 11:58:00 AM Interpretation: Performing Lab:[facility], [address] [place] [phone] Notes/Report: PT, INR - [facility]ag [facility] 1.8 0.9-1.1 METER #: [id number] INTERNATIONAL NORMALIZED RATIO (INR) REFERENCE RANGES Reference [...] OC Reviewed date:09/24/2024 11:58:00 AM Interpretation: Performing Lab:[facility], [address] [place] [phone] Notes/Report: Prothrombin Time Whole Bld POC 21.8 11.1-13.5 sec Complete Blood Count Auto Di ff Reviewed date:10/04/2024 11:26:43 AM Interpretation: Performing Lab:[facility], [address] [place] [phone] Notes/Report: White Blood Count 10.5 4.8-10.8 X10*3/uL [...] NRBC Abs Auto 0.000 0.0-0.012 X10*3/uL Comprehensive [place]. Panel Fa st Reviewed date:10/04/2024 11:26:43 AM Interpretation: Performing Lab:[facility], [address] [place] [phone] Notes/Report: Sodium 144 135-145 mmol/L Potassium 4.6 [...] Panel Reviewed date:10/04/2024 11:26:43 AM Interpretation: Performing Lab:[address] [phone] Notes/Report: Triglycerides 81 <150 mg/dL Desirable Triglyceride: [...] POC Reviewed date:10/04/2024 11:26:43 AM Interpretation: Performing Lab:[address] [phone] Notes/Report: PT, INR - Anti [facility]ag Clinic 2.0 0.9-1.1 METER #: [id number] INTERNATIONAL NORMALIZED RATIO (INR) REFERENCE RANGES Reference [...] OC Reviewed date:10/04/2024 11:26:43 AM Interpretation: Performing Lab:[facility], [address] [place] [phone] Notes/Report: Prothrombin Time Whole Bld POC 23.8 11.1-13.5 sec INR WHOLE BLOOD POC Reviewed date:10/19/2024 12:18:43 PM Interpretation: Performing Lab:[facility], [address] [place] [phone] Notes/Report: PT, INR - Anti [facility]ag Clinic 1.7 0.9-1.1 METER #: [id number] INTERNATIONAL NORMALIZED RATIO (INR) REFERENCE RANGES Reference [...] OC Reviewed date:10/19/2024 12:18:43 PM Interpretation: Performing Lab:[facility], [address] [place] [phone] Notes/Report: Prothrombin Time Whole Bld POC 20.9 11.1-13.5 sec INR WHOLE BLOOD POC Reviewed date:10/30/2024 07:56:40 AM Interpretation: Performing Lab:[facility], [address] [place] [phone] Notes/Report: PT, INR - Anti [facility]ag Clinic 2.5 0.9-1.1 METER #: [id number] INTERNATIONAL NORMALIZED RATIO (INR) REFERENCE RANGES Reference [...] OC Reviewed date:10/30/2024 07:56:40 AM Interpretation: Performing Lab:[facility], [address] [place] [phone] Notes/Report: Prothrombin Time Whole Bld POC 30.4 11.1-13.5 sec INR WHOLE BLOOD POC Reviewed date:11/12/2024 08:31:52 PM Interpretation: Performing Lab:[facility], [address] [place] [phone] Notes/Report: PT, INR - Anti Coag Clinic 2.0 0.9-1.1 METER #: [id number] INTERNATIONAL NORMALIZED RATIO (INR) REFERENCE RANGES Reference [...] Prothrombin Time Whole Bld P OC Reviewed date:11/12/2024 08:31:52 PM Interpretation: Performing Lab:[facility], [address] [place] [phone] Notes/Report: Prothrombin Time Whole Bld POC 24.5 11.1-13.5 sec INR WHOLE BLOOD POC Reviewed date:12/01/2024 07:02:07 AM Interpretation: Performing Lab:[facility], [address] [place] [phone] Notes/Report: PT, INR - Anti Coag Clinic 1.8 0.9-1.1 METER #: [id number] INTERNATIONAL NORMALIZED RATIO (INR) REFERENCE RANGES Reference [...] Prothrombin Time Whole Bld P OC Reviewed date:12/01/2024 07:02:07 AM Interpretation: Performing Lab:[facility], [address] [place] [phone] Notes/Report: Prothrombin Time Whole Bld POC 21.1 11.1-13.5 sec INR WHOLE BLOOD POC (Not yet reviewed by provider) Interpretation: Performing Lab:[facility], [address] [place] [phone] Notes/Report: PT, INR - Anti Coag Clinic 2.0 0.9-1.1 METER #: [id number] INTERNATIONAL NORMALIZED RATIO (INR) REFERENCE RANGES Reference [...] (Not yet reviewed by provider) Interpretation: Performing Lab:[facility], [address] [place] [phone] Notes/Report: Prothrombin Time Whole Bld POC 24.1 11.1-13.5 sec Reason For Referral Reason Evaluate and Treat New Lesion of Nose Diagnosis 1 Lesion of nose (J34. 89) Referral Organization Jose Felder III, MD Referring Provider First Name Jose Referring Provider Last Name Bradford Referring Provider Speciality Internal M edicine Referred Provider [facility] Referred Provider Specialty Dermatology General Notes Tamie [...] Problem Status W/U Status Risk Notes Problem 0284542 Former smoker (Z87.891) Active confirmed He is highly motivated not to smoke and has a plan to prevent relapse in times of stress or illness. Problem 847429372 Overweight (BMI 25.0-29.9) (E66.3) Active confirmed He has lost 5 pounds and is still overweight. We discussed diet and nutrition. We made a plan to lose weight at a rate of one half of a pound per week through a diet restricted in calories combined with physical activity. Problem 719559167 Overweight (E66.3) Active confirmed He has gained 7 pounds. His body mass index is 27. We discussed his weight loss strategy. I recommended aggressive weight loss through regular physical activity and diet restricted in calories. Problem 42227013 Hypertension (I10) Active confirmed His blood pressure is stable today. Problem 31685256 Other chronic pain (G89.29) Active confirmed Problem 512530596 Solitary pulmonary nodule (R91.1) Active confirmed Problem 732863274 Environmental allergies (Z91.09) Active confirmed He has noted itching around his eyes and nasal congestion. He is using cnfa-vrt-vqgnaj r medication. I recommended fluticasone and loratadine. 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 Problem 155077957 DVT (deep venous thrombosis) (I82.409) Active confirmed He has had no blood clots. Problem 621747971 Lung cancer (C34.90) Active confirmed He remains in remission with no relapse. He is no longer smoking. 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 The protein S deficiency is no indication for lifelong therapy. Problem 74471226 Other depression (F32.89) Active confirmed His medication was increased to 100 mg daily. A follow-up visit was arranged. He has no suicidal ideation and is beginning to experience improvement. Problem 979690482 Benign prostatic hyperplasia, unspecified whether lower urinary tract symptoms present (N40.0) Active confirmed He reports rising from sleep about twice a night to urinate. We have discussed some lifestyle modifications he could make to reduce this nocturia. Problem 66390714 Chronic nonintractable headache, unspecified headache type (R51) Active confirmed His headaches are improved. They're less frequent. He will continue on current therapy. Problem COVID-19 virus infection (U07.1) Active confirmed He has recovered from his collins virus infection with no lung symptoms. 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 ; Environmental allergies Z91.09 ; 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 ; DVT (deep venous thrombosis) I82.409 and Overweight (BMI 25.0-29.9) E66.3 Jose Felder III, MD [address] [place] [address] [place] [address] 01/27/2024 Jose Felder 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 ; Overweight (BMI 25.0-29.9) E66.3 ; Benign prostatic hyperplasia, unspecified whether lower urinary tract symptoms present N40.0 ; Former smoker Z87.891 ; Lung cancer C34.90 and Environmental allergies Z91.09 Jose Felder III, MD [address] [place] [address] [address] [place] [address] 06/07/2024 Jose Felder 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 ; Hypertension I10 ; Overweight E66.3 ; Episodic memory loss R41.3 ; Former smoker Z87.891 and Lung cancer C34.90 Jose Felder III, MD [address] [place] [address] [place] [address] 08/23/2024 Jose Felder COVID-19 virus infec tion U07.1 ; 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 ; Former smoker Z87.891 ; Lung cancer C34.90 ; Environmental allergies Z91.09 and Overweight E66.3 Jose Felder III, MD [address] [place] [address] [address] [place] [address] 10/04/2024 Jose Felder COVID-19 virus infec tion [...] and Overweight E66.3 Jose Felder III, MD [address] [place] [address] [place] [address] 10/15/2024 Jose Felder Skin lesion of face L98.9 ; 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 ; Former smoker Z87.891 ; Lung cancer C34.90 ; Environmental allergies Z91.09 ; Hypertension I10 ; DVT (deep venous thrombosis) I82.409 ; Overweight (BMI 25.0-29.9) E66.3 ; Chronic nonintractable headache, unspecified headache type R51 ; 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 and Other depression F32.89 Jose Felder III, MD [address] [place] [address] [place] [address] 03/15/2024 Jose Felder III, MD [address] [place] [address] [place] [address] 08/23/2024 Jose Felder III, MD [address] [place] [address] [place] [address] 08/31/2024 Jose BACK-19 virus infec tion U07.1 Jose Felder III, MD [address] [place] [address] [place] [address] 08/31/2024 Jose BACK-19 virus infec tion U07.1 Jose Felder III, MD [address] [place] [address] [place] [address] 09/17/2024 Jose Felder Assessments Encounter Date Diagnosis [...] eyes and nasal congestion. He is using haoh-kie-rkiqoou medication. I recommended fluticasone and loratadine. 10/04/2024 Former smoker (ICD-1 0 - Z87.891) He is highly motivated not to smoke and has a plan to prevent relapse in times of stress or illness. 10/15/2024 Environmental allergies (ICD-10 - Z91.09) He has noted itching around his eyes and nasal congestion. He is using ahjw-zqx-xmvpnzc medication. I recommended fluticasone and loratadine. 01/07/2024 Environmental allergies (ICD-10 - Z91.09) He has noted itching around his eyes and nasal congestion. He is using jowz-cwd-sqrobwp medication. I recommended fluticasone and loratadine. 01/27/2024 Environmental allergies (ICD-10 - Z91.09) He has noted itching around his eyes and nasal congestion. He is using hwmt-edz-gmycstv medication. I recommended fluticasone and loratadine. 06/07/2024 [...] eyes and nasal congestion. He is using otub-bvg-ljvfgyw medication. I recommended fluticasone and loratadine. 10/15/2024 [...] C) 11/09/2021 PROFILE, FASTING (COMPREHENSIVE METABOLI C) 10/04/2024 PROFILE, FASTING (COMPREHENSIVE METABOLI C) 01/25/2020 PROFILE, [...] PSA, TOTAL 09/30/2023 PSA, TOTAL 10/04/2024 PSA, TOTAL+FREE 02/26/2021 CBC w DIFF 11/09/2021 CBC w DIFF 10/04/2024 CBC w DIFF 08/12/2022 CBC w DIFF 08/19/2019 CBC w DIFF 07/06/2018 CBC w DIFF 06/07/2024 CBC w DIFF 07/11/2021 CBC w DIFF 01/25/2020 CBC w DIFF 06/19/2022 CBC w DIFF 10/14/2018 CBC w DIFF 03/26/2022 CBC w DIFF 05/08/2017 CBC w DIFF 11/18/2019 CBC w DIFF 02/26/2021 CBC w DIFF 11/21/2017 CBC w DIFF 12/09/2022 CBC w DIFF 09/30/2023 CBC w DIFF 10/30/2020 SED RATE (ESR) 03/26/2022 CBC WITH AUTO DIFF 06/18/2023 CBC WITH AUTO DIFF 01/27/2024 Lipid Panel 09/30/2023 Lipid Panel 10/04/2024 Lipid Panel 06/18/2023 Lipid Panel 07/11/2021 Lipid Panel 06/07/2024 Lipid Panel 01/27/2024 INR WHOLE BLOOD POC 12/14/2024 Prothrombin Time Whole Bld POC Next Appt Details Provider Name:Jose Felder, 02/03/2025 10:00:00 AM, [address] [place] [address] OCHOA NOLASCO, [place], [id number], Provider Name:Jose Felder, 10/05/2025 02:30:00 PM, [address] [place] [address] OCHOA NOLASCO, [place], [id number], Insurance Providers Payer Name Payer Address Payer Phone Subscriber Number Group Number Insured Name Patient Relationship to Insured Coverage Start Date Coverage End Date [employer] [address] [place], [place] [id number] Jem Gallardo Self - patient is the insured 4 MEDICARE NGS [address] [place] [address] [id number] Jem Gallardo Self - patient is the insured Medical (General) History Medical History History ICD Code migraine headaches allergies hypertension anal fissure staphylococcal infection 1999 chronic lymphocytic leukemia in [facility] n lung cancer, non-small cell obesity former smoker dvt february 2015 right leg protein S deficiency Covid 22 August 2024 Surgical History Surgery Date(Month/Year) No history Cyst removed from his back 08/2022 cataract right eye 06/2018 FNA superior mediastinal mass Hospitalization History Reason Date(Month/Year) No history
--- OUTSIDE RECORDS SUMMARY | 2024-12-14 08:35 | XMS_ITS ---
Author Organization Jose Felder III, MD Address [address] [place] [address] [place] [address] Care Team Providers Care Production Control Clerk Name Role Phone Jose Felder Primary [...] Severe acute respiratory syndrome coronavirus 2 (disorder) ([id number]) COVID-19 virus infection (U07.1) Active confirmed He [...] Date Provider Diagnosis Jose Felder III, MD [address] [place] [address] [place] [address] 10/04/2024 Jose Felder COVID-19 virus infec tion [...] eyes and nasal congestion. He is using mfmp-wpf-zbznoov medication. I recommended fluticasone and loratadine. 10/04/2024 [...] OV Provider Name:Jose Felder, 02/03/2025 10:00:00 AM, [address] [place] [address] [address], [place], [address], Provider Name:Jose Felder, 10/05/2025 02:30:00 PM, [address] [place] [address] [address], [place], [address], Progress Notes * Jem QUINTEROSDOB:1945 ( 79 yo M)Acc No.[id number]:10/04/2024 Progress Notes Patient:?Jem QUINTEROS Provider:?Jose Felder MD :1945???Age:79 Y???Sex:Male Darius e:10/04/2024 Address: [address] [facility] [place], [id number] Subjective: * Chief Complaints: * ???Annual exam [...] ?Points?1 ?Interpretation?Negative ???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 The patient is retired and does not [...] , Notes to Pharmacist: gfr above 60 [id number] List reviewed and reconciled with the patientDiscontinued [...] , Notes to Pharmacist: gfr above 60 [id number] List reviewed and reconciled with the patient [...] 42 (Ref Range: >40 mg/dL) * Lab:Comprehensive [facility]. Pane l Fast * Collection Date 10/04/2024 [...] eyes and nasal congestion. He is using ajku-dli-yncnqvg medication. I recommended fluticasone and loratadine.???8.?Overweight (BMI [...] * ?BLD 5-10 Negative - * Procedure Codes:?94530 URINE -NO MICRO * Preventive Medicine:? ??Counseling:?Care goal follow-up plan:?Counseling for abnormal BMI given?Yes ?Above Normal BMI Follow-up?Dietary management education, guidance, and counseling, Dietary needs education ?Smoking/Tobacco Use?Patient counseled on the dangers of tobacco use and urged to quit.?10/04/2024 * Follow Up:?4 Months (Reason: OV) * Images: * Sign off status: Completed true * Provider:?Jose Felder MD Date:?10/2024 Generated for SplitG[employer] daxa/Apple/eTransmitting on:?12/14/2024 08:34 AM EDT History and Physical [...]
--- OUTSIDE RECORDS SUMMARY | 2024-12-14 08:35 | XMS_ITS ---
Author Organization Jose Felder III, MD Address [address] [place] [address] [address] [place] [place] [address] Care Team Providers Care Boilermaker Name Role Phone Jose Felder Primary Care Provider REASON FOR VISIT Message Social History Sex Assigned At : Social History Observation Description Sex Assigned At Male Encounters Encounter Location Date Provider Diagnosis Jose Felder III, MD [address] [place] [address] [place] [address] 09/17/2024 Jose Felder Plan Of Treatment Next Appt Details Provider Name:Jose Felder, 02/03/2025 10:00:00 AM, [address] [place] [address] [place], [address], Provider Name:Jose Felder, 10/05/2025 02:30:00 PM, [address] [place] [address] [place], [address], Progress Notes * Jem QUINTEROSDOB:1945 ( 79 yo M)Acc No.[id number]:09/17/2024 Patient:SusanEMERSONJem Drew :1945???Age:79 Y???Sex:Male Address:[address] [place] [address] * true * Date:? Generated for Printi ng/Apple/Rubenitting on:?12/14/2024 08:35 AM EDT
--- NOTE | 2024-12-14 08:40 | MHC.OFFVISCO ---
Intake Intake Visit Reasons: Anticoagulation Allergies Seasonal Allergies Allergy (Intermediate, Verified 12/14/24 08:24) Cough venlafaxine Adverse Reaction (Intermediate, Verified 12/14/24 08:24) Headache Medication List - Last Reconciled 12/14/24 by Lynda Martinez RN losartan 25 mg PO DAILY simvastatin 40 mg PO DAILY sumatriptan succinate 100 mg PO PRN trazodone 50 mg PO BEDTIME venlafaxine 50 mg PO DAILY vitamin B complex PO [VITAMIN D 3 PO] warfarin 5 mg See Protocol PO DAILY Nursing Note NO CP,SOB,DIET/MED CHANGES,FALLS OR SX OF BLEEDING. CONTINUE PRESNT DOSE ND FOLLOW-UP IN 2 WEEKS. GOOD UNDERSTANDING OF DOSING INSTR. 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
== END 2024-12-14 08:41 | disposition home or self-care (01) ==
LOC: HO.ACS 08:24
PROVIDERS: PCP Internal Medicine Medical Oncology; Visit Provider Internal Medicine Medical Oncology
DX: Z79.01 Long term (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 (principal)

== ENCOUNTER → 2024-12-14 08:24 | Outpatient (BNVA) | payer MEDICARE, SELFPAY | PROVIDERS: PCP Internal Medicine Medical Oncology; Visit Provider Internal Medicine Medical Oncology | DX: Z86.718 Personal history of other venous thrombosis and embolism (principal); Z79.01 Long term (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; Z51.81 Encounter for therapeutic drug level monitoring | CPT/HCPCS: 85610; 99211 ==

== ENCOUNTER 2024-12-28 08:10 | Outpatient (AMB) | payer MEDICARE, SELFPAY ==
--- OUTSIDE RECORDS SUMMARY | 2024-12-28 08:12 | XMS_ITS | Encounter Summary ---
Author Organization [facility] Address [address] [place] [address] Care Team Providers Care Autos Disassembler Name Role Phone Wilner Paulson MD Primary Care Provider Unavailable Jose Felder MD Primary Care Provider Vladimir kapoor Encounter Details Date Type Department Care Team Description 02/27/2017 Business Doc Medical Records [address] [place] [id number] Abstract, Provider Social History Tobacco Use Types [...] on filedocumented in this encounter Care Teams Autos Disassembler Relationship Specialty Start Date End Date Wilner Paulson MD PCP - General Internal Medicine 11/13/1601/02 Jose Felder MD PCP - General Oncology/Hematology 01/19/18 documented as of this encounter
[2024-12-28 08:27] LABS: Prothrombin Time Whole Bld POC 32.7 sec (11.1-13.5); ~PT, ~INR - Anti Coag Clinic 2.7 (0.9-1.1)
--- NOTE | 2024-12-28 08:32 | MHC.OFFVISCO ---
Intake Intake Visit Reasons: Anticoagulation Allergies Seasonal Allergies Allergy (Intermediate, Verified 12/28/24 08:23) Cough venlafaxine Adverse Reaction (Intermediate, Verified 12/28/24 08:23) Headache Medication List - Last Reconciled 12/28/24 by Razia López, RN losartan 25 mg PO DAILY simvastatin 40 mg PO DAILY sumatriptan succinate 100 mg PO PRN trazodone 50 mg PO BEDTIME venlafaxine 50 mg PO DAILY vitamin B complex PO [VITAMIN D 3 PO] warfarin 5 mg See Protocol PO DAILY Nursing Note INR: 2.7 in therapeutic range of 2-3 Medications and supplements reviewed No changes in health, diet, medications, or supplements, Denies any signs and symptoms of bleeding or bruising or clotting. 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
== END 2024-12-28 08:37 | disposition home or self-care (01) ==
LOC: HO.ACS 08:10
PROVIDERS: PCP Internal Medicine Medical Oncology; Visit Provider Internal Medicine Medical Oncology
DX: Z79.01 Long term (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 (principal)

== ENCOUNTER → 2024-12-28 08:10 | Outpatient (BNVA) | payer MEDICARE, SELFPAY | PROVIDERS: PCP Internal Medicine Medical Oncology; Visit Provider Internal Medicine Medical Oncology | DX: Z86.718 Personal history of other venous thrombosis and embolism (principal); Z79.01 Long term (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; Z51.81 Encounter for therapeutic drug level monitoring | CPT/HCPCS: 85610; 99211 ==

== ENCOUNTER 2025-01-18 08:55 | Outpatient (AMB) | payer MEDICARE, SELFPAY ==
[2025-01-18 09:03] LABS: Prothrombin Time Whole Bld POC 18.9 sec (11.1-13.5); ~PT, ~INR - Anti Coag Clinic 1.6 (0.9-1.1)
--- NOTE | 2025-01-18 09:13 | MHC.OFFVISCO ---
Intake Intake Visit Reasons: Anticoagulation Allergies Seasonal Allergies Allergy (Intermediate, Verified 01/18/25 08:58) Cough venlafaxine Adverse Reaction (Intermediate, Verified 01/18/25 08:58) Headache Medication List - Last Reconciled 01/18/25 by Razia López, RN losartan 25 mg PO DAILY simvastatin 40 mg PO DAILY sumatriptan succinate 100 mg PO PRN trazodone 50 mg PO BEDTIME venlafaxine 50 mg PO DAILY vitamin B complex PO [VITAMIN D 3 PO] warfarin 5 mg See Protocol PO DAILY Nursing Note INR: 1.6 out of therapeutic range of 2-3 Pt states he is having more salads and tried to balance with an orange fruit so has been having oranges but oranges have Vit C which can lower the INR. Medications and supplements reviewed Patient status: well Medications or supplements: no changes Diet: as above Denies any signs and symptoms of bleeding or clotting or unusual bruising Bleeding, bruising, clotting discussed Nutritional guidance given: pt will hold oranges X 3 days and will incorporate cranberry juice into his diet Dose: increase today's dose to 10mg (7.5mg) and increase tomorrow's dose to 7.5mg (5mg) then usual dose of 5mg X 4 days and 7.5mg X 3 days F/U INR Date: 2 weeks?? Patient verbalizing understanding of instructions given. Anti-Coag Initial Assessment Social Hx Patient Tobacco Use Status: Former Tobacco user Tobacco use type: Cigar alcohol intake: never Coding Level of Care Code Est Patient Level 1 Diagnoses Current use of anticoagulant therapy Z79.01 Assessment & Plan Assessment & Plan (1) Current use of anticoagulant therapy: Code(s): Z79.01 - alf (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
--- OUTSIDE RECORDS SUMMARY | 2025-01-18 09:28 | XMS_ITS | Encounter Summary ---
Author Organization [facility] Address [address] [place] [address] Care Team Providers Care On Awake Counselor Name Role Phone Wilner Paulson MD Primary Care Provider Unavailable Jose Felder MD Primary Care Provider Vladimir kapoor Encounter Details Date Type Department Care Team Description 02/27/2017 Business Doc Medical Records [address] [place] [id number] Abstract, Provider Social History Tobacco Use Types [...] on filedocumented in this encounter Care Teams On Awake Counselor Relationship Specialty Start Date End Date Wilner Paulson MD PCP - General Internal Medicine 11/13/1601/02 Jose Felder MD PCP - General Oncology/Hematology 01/19/18 documented as of this encounter
== END 2025-01-18 09:17 | disposition home or self-care (01) ==
LOC: HO.ACS 08:55
PROVIDERS: PCP Internal Medicine Medical Oncology; Visit Provider Internal Medicine Medical Oncology
DX: Z79.01 Long term (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 (principal)

== ENCOUNTER → 2025-01-18 08:55 | Outpatient (BNVA) | payer MEDICARE, SELFPAY | PROVIDERS: PCP Internal Medicine Medical Oncology; Visit Provider Internal Medicine Medical Oncology | DX: Z86.718 Personal history of other venous thrombosis and embolism (principal); Z79.01 Long term (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; Z51.81 Encounter for therapeutic drug level monitoring | CPT/HCPCS: 85610; 99211 ==

== ENCOUNTER 2025-01-31 08:38 | Outpatient (AMB) | payer MEDICARE, SELFPAY ==
[2025-01-31 08:49] LABS: Prothrombin Time Whole Bld POC 22.4 sec (11.1-13.5); ~PT, ~INR - Anti Coag Clinic 1.9 (0.9-1.1)
--- NOTE | 2025-01-31 09:04 | MHC.OFFVISCO ---
Intake Intake Visit Reasons: Anticoagulation Allergies Seasonal Allergies Allergy (Intermediate, Verified 01/31/25 08:43) Cough venlafaxine Adverse Reaction (Intermediate, Verified 01/31/25 08:43) Headache Medication List - Last Reconciled 01/31/25 by Brenda Trimble RN losartan 25 mg PO DAILY simvastatin 40 mg PO DAILY sumatriptan succinate 100 mg PO PRN trazodone 50 mg PO BEDTIME venlafaxine 50 mg PO DAILY vitamin B complex PO [VITAMIN D 3 PO] warfarin 5 mg See Protocol PO DAILY Nursing Note INR: 1.9 in therapeutic range Medications and supplements reviewed Pt to check meds at home is on trazadone or venalafaxine both can affect INR differently Denies any signs and symptoms of bleeding or bruising or clotting. Bleeding, bruising, clotting discussed Nutritional guidance given Dose: increase to 7.5mg x 4 days/ 5mg x 3 days F/U INR: 2 weeks Patient verbalizes understanding of instructions given Anti-Coag Initial Assessment Social Hx Patient Tobacco Use Status: Former Tobacco user Tobacco use type: Cigar alcohol intake: never Coding Level of Care Code Est Patient Level 1 Diagnoses Current use of anticoagulant therapy Z79.01 Results AMB INR Fingerstick AMB INR Fingerstick 1.9 Last Edit by Brenda Trimble RN on 01/31/25 08:49 Assessment & Plan Assessment & Plan (1) Current use of anticoagulant therapy: Code(s): Z79.01 - [facility] (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
== END 2025-01-31 09:07 | disposition home or self-care (01) ==
LOC: HO.ACS 08:38
PROVIDERS: PCP Internal Medicine Medical Oncology; Visit Provider Internal Medicine Medical Oncology
DX: Z79.01 Long term (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 (principal)

== ENCOUNTER → 2025-01-31 08:38 | Outpatient (BNVA) | payer MEDICARE, SELFPAY | PROVIDERS: PCP Internal Medicine Medical Oncology; Visit Provider Internal Medicine Medical Oncology | DX: Z79.01 Long term (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 (principal) | CPT/HCPCS: 85610; 99211 ==

== ENCOUNTER 2025-02-08 06:06 | Outpatient (REF) | payer MEDICARE, SELFPAY ==
--- OUTSIDE RECORDS SUMMARY | 2024-10-15 10:30 | XMS_ITS ---
Author Organization Jose Felder III, MD Address [address] [place] [address] Care Team Providers Care Tobacco Warehouse Agent Name Role Phone Jose Felder Primary Care Provider Allergies Allergen (clinical drug ingredient) Drug/Non Drug Allergy documented on EMR Reaction Allergy Type Onset Date Status No Known Drug Allergy Unknown Drug Allergy Active Seasonale Unknown Drug Allergy Active Reason For Referral Reason Evaluate and Treat New Lesion of Nose Diagnosis 1 Lesion of nose (J34. 89) Referral Organization Jose Felder III, MD Referring Provider First Name Jose Referring Provider Last Name Bradford Referring Provider Speciality Internal M edicine Referred Provider [facility] ([place]) Referred Provider Specialty Dermatology General Notes Tamie You 10/18/2024 10:59:17 AM > Referral FaxedKenyatta Amber 01/18/2025 02:35:46 PM > Contacted patient regarding referral. Patient was left a message regarding, Bhavana Salinas DAMARIS 01/19/2025 10:13:49 AM >pt called back stated he already has been seen a few months ago and they took off the lesion Referral Priority Routine REASON FOR VISIT Skin lesion, bridge of nose Medications Medication SIG (Take, Route, Frequency, Duration) Notes Start Date End Date Status Venlafaxine HCl 50 MG 1 tablet with food Orally Once a day 04/16/2023 Active Losartan Potassium 25 MG as directed Ora lly Once a day Active Simvastatin 40 MG 1 Tablet Orally Once a day Active SUMAtriptan Succinate 100 MG TAKE 1 TABLET BY MOUTH EVERY DAY AT THE ONSET OF MIGRAINE; MAY REPEATevery 22 HOURS IF when SYPTOMS PERSISTS; MAX OF 2 TS/ DAY Orally Once a day Active Warfarin Sodium 5 MG 1 1/2 tablet Orally Once a day Active Social History Tobacco Use: Social History Observation Description Date Details (start date - stop date) Former Smoker NA - NA Sex Assigned At : Social History Observation Description Sex Assigned At Male Tobacco Control (Standard) Question Answer Notes Tobacco use: Former smoker How long has it been since you last smoked? Grea ter than 10 years Additional Findings: Tobacco non-user Ex-cigaret te smoker Problems Problem Type SNOMED Code ICD Code Onset Dates Problem Status W/U Status Risk Notes Problem [id number] Skin lesion of face (L98.9) Active confirmed The area on his nose has the appearance of an actinic keratosis. It has only recently appeared. I have made a referral to dermatology for definitive diagnosis and treatment. 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 It has only recently appeared. I have made a referral to dermatology for definitive diagnosis and treatment. 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 10/15/2024 Former smoker (ICD-1 0 - Z87.891) He is highly motivated not to smoke and has a plan to prevent relapse in times of stress or illness. 10/15/2024 Lung cancer (ICD-10 - C34.90) He remains in remission with no relapse. He is no longer smoking. 10/15/2024 Environmental allergies (ICD-10 - Z91.09) He has noted itching around his eyes and nasal congestion. He is using rqpw-aaz-ahwscnn medication. I recommended fluticasone and loratadine. 10/15/2024 Hypertension (ICD-10 - I10) His blood pressure is stable today. 10/15/2024 DVT (deep venous thrombosis) (ICD-10 - I82.409) He has had no blood clots. 10/15/2024 Overweight (BMI 25.0-29.9) (ICD-10 - E66.3) He has lost 5 pounds and is still overweight. We discussed diet and nutrition. We made a plan to lose weight at a rate of one half of a pound per week through a diet restricted in calories combined with physical activity. 10/15/2024 Chronic nonintractable headache, unspecified headache type (ICD-10 - R51) His headaches are improved. They're less frequent. He will continue on current therapy. 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 The protein S deficiency is no indication for lifelong therapy. 10/15/2024 Other depression (ICD-10 - F32.89) His medication was increased to 100 mg daily. A follow-up visit was arranged. He has no suicidal ideation and is beginning to experience improvement. Plan Of Treatment Medication Medication Name Sig Start Date Stop Date Notes Venlafaxine HCl 50 MG 1 tablet with food Orally Once a day 04/16/2023 Losartan Potassium 25 MG as directed Orally Once a day Simvastatin 40 MG 1 Tablet Orally Once a day SUMAtriptan Succinate 100 MG TAKE 1 TABL ET BY MOUTH EVERY DAY AT THE ONSET OF MIGRAINE; MAY REPEATevery 22 HOURS IF when SYPTOMS PERSISTS; MAX OF 2 TS/ DAY Orally Once a day Warfarin Sodium 5 MG 1 1/2 tablet Orally Once a day Referrals Referral Date Details 10/15/2024 10/15/2024, Evaluate and Treat New Lesion of Nose[facility] ([place] Next Appt Details Follow Up: As Scheduled, Tamiko son: OV Provider Name:Jose Felder, 02/16/2025 09:45:00 AM, [address] [place] [address] [address], [place], [id number], Provider Name:Jose Felder, 10/05/2025 02:30:00 PM, [address] [place] [address] [place] [place], [place], [phone], Progress Notes * Jem QUINTEROSDOB:1945 ( 79 yo M)Acc No.[id number]:10/15/2024 Progress Notes Patient: Jem JI Provider: Annalise Felder MD :1945 A ge:79 Y S ex:Male Date:10/15/2024 Address: [place], [id number] Subjective: * Chief Complaints: * S kin lesion, bridge of nose * HPI: C OVID-19 Screening: He returns to the office before his scheduled visit because he has noticed a lesion on the bridge of his nose. He is concerned about skin cancer. On examination there was an oval-shaped 3 mm area of skin distortion on the bridge of his upper nose consistent with an actinic keratosis. He was referred to dermatology for treatment. This area has not been present in the past. He is anticoagullated but has no bleeding. He denies any chest pain or shortness of breath. He has no new complaints and has been compliant with all his medications. Questions H ave you had any new onset fever, chills, cough, congestion, sore throat, shortness of breath, muscle aches? N o * ROS: G eneral/Constitutional: pain o nly normal aches and pains. C hills d enies.?Fatigue a dmits. F ever d enies. E NT: Decreased hearing m ild. R espiratory: Cough d enies. C ardiovascular: Chest pain with exertion d enies. D yspnea on exertion?denies. S hortness of breath d enies. G astrointestinal: Constipation o ccasional. D ecreased appetite d enies. D iarrhea d enies. H eartburn d enies. N ausea d enies. R ectal bleeding d enies. V omiting d enies. H ematology: bruising d enies. p etechiae d enies. S wollen glands n one have been noted. G enitourinary: Frequent urination t wice a night. M usculoskeletal: Muscle aches d enies. P ainful joints d enies. S ciatica d enies. W eakness d enies. S kin: Itching d enies. R nik d enies. S kin lesion(s)?Recent onset bridge of nose. N eurologic: Difficulty speaking d enies. D izziness d enies.?Headache d enies. L ow back pain d enies. P sychiatric: Depressed mood d enies. * Medical History: * Surgical History: F NA superior mediastinal mass cataract right eye 06/2018Cyst removed from his back 08/2022No history * Hospitalization/Major Diagno stic Procedure: N o history * Family History: F ather: 92 yrs, diagnosed with Hyperlipidemia, DM. C hildren: alive. S on(s): alive. S iblings: . 4 brother(s) , 1 sister(s) . 2 son(s) , 1 daughter(s) - healthy. . His father in of a hematological malignancy. His mother is 88 and well. He has three healthy children. A son has type I diabeties. Two brothers have type II diabeties. Brother passed from Pneumonia. The patient's mother had dementia and lived to be 103. his brother from lobe dementia three years ago. Mother lived until 103, father until 93. * Social History: T obacco Use: T obacco Control (Standard) T obacco use: F ormer smoker H ow long has it been since you last smoked??Greater than 10 years A dditional Findings: Tobacco non-user E x-cigarette smoker H e is a , retired [employer] in [place]. The patient is retired and does not mention any smoking, drinking, or drug use habits. He does not mention his diet, exercise habits, work environment, or living situation. * Medications: T akingLosartan Potassium 25 MG Tablet as directed Orally Once a day Venlafaxine HCl 50 MG Tablet 1 tablet with food Orally Once a day SUMAtriptan Succinate 100 MG Tablet TAKE 1 TABLET BY MOUTH EVERY DAY AT THE ONSET OF MIGRAINE; MAY REPEATevery 22 HOURS IF when SYPTOMS PERSISTS; MAX OF 2 TS/ DAY Orally Once a day Warfarin Sodium 5 MG Tablet 1 1/2 tablet Orally Once a day Simvastatin 40 MG Tablet 1 Tablet Orally Once a day Medication List reviewed and reconciled with the patientTaking Losartan Potassium 25 MG Tablet as directed Orally Once a day Taking Venlafaxine HCl 50 MG Tablet 1 tablet with food Orally Once a day Taking SUMAtriptan Succinate 100 MG Tablet TAKE 1 TABLET BY MOUTH EVERY DAY AT THE ONSET OF MIGRAINE; MAY REPEATevery 22 HOURS IF when SYPTOMS PERSISTS; MAX OF 2 TS/ DAY Orally Once a day Taking Warfarin Sodium 5 MG Tablet 1 1/2 tablet Orally Once a day Taking Simvastatin 40 MG Tablet 1 Tablet Orally Once a day Medication List reviewed and reconciled with the patient * Allergies: S easonaleNo Known Drug Allergyno[Allergies Verified] Objective: * Vitals: H t: 71, Wt:195, BMI:27.19, BP:130/72, HR:91, Temp:98.4, Wt-k.45. * P ast Orders: Lab:Lipid Panel * Collection Date 10/04/2024 06/07/2024 01/26/2024 Collection Time 06:09 AM 06:36 AM 06:20 AM Order Date 10/04/2024 06/07/2024 01/26/2024 Triglycerides 81 (Ref Range: <150 mg/dL) 66 (Ref Range: <150 mg/dL) 59 (Ref Range: <150 mg/dL) Cholesterol 164 (Ref Range: <200 mg/dL) 147 (Ref Range: <200 mg/dL) 138 (Ref Range: <200 mg/dL) LDL Cholesterol Calculated 104 H (Ref Range: <100 mg/dL) 91 (Ref Range: <100 mg/dL) 85 (Ref Range: <100 mg/dL) HDL Cholesterol 44 (Ref Range: >40 mg/dL) 43 (Ref Range: >40 mg/dL) 42 (Ref Range: >40 mg/dL) * Lab:[facility] Salas l Fast * Collection Date 10/04/2024 06/07/2024 01/26/2024 Collection Time 06:09 AM 06:36 AM 06:20 AM Order Date 10/04/2024 06/07/2024 01/26/2024 Sodium 144 (Ref Range: 135-145 mmol/L) 144 (Ref Range: 135-145 mmol/L) 142 (Ref Range: 135-145 mmol/L) Bilirubin Total 0.6 (Ref Range: 0.0-1.0 mg/dL) 0.8 (Ref Range: 0.0-1.0 mg/dL) 0.4 (Ref Range: 0.0-1.0 mg/dL) Aspartate Amino Transferase 25 (Ref Range: 5-37 U/L) 27 (Ref Range: 5-37 U/L) 18 (Ref Range: 5-37 U/L) Alanine Aminotransferase 23 (Ref Range: 0-40 U/L) 25 (Ref Range: 0-40 U/L) 19 (Ref Range: 0-40 U/L) Total Protein 7.5 (Ref Range: 6.5-8.0 g/dL) 6.9 (Ref Range: 6.5-8.0 g/dL) 6.9 (Ref Range: 6.5-8.0 g/dL) Albumin Level 4.1 (Ref Range: 3.5-5.0 g/dL) 4.0 (Ref Range: 3.5-5.0 g/dL) 3.9 (Ref Range: 3.5-5.0 g/dL) Alkaline Phosphatase 72 (Ref Range: 39-117 U/L) 64 (Ref Range: 39-117 U/L) 77 (Ref Range: 39-117 U/L) Potassium 4.6 (Ref Range: 3.3-5.1 mmol/L) 4.7 (Ref Range: 3.3-5.1 mmol/L) 4.3 (Ref Range: 3.3-5.1 mmol/L) Chloride 109 H (Ref Range: 96-108 mmol/L) 108 (Ref Range: 96-108 mmol/L) 109 H (Ref Range: 96-108 mmol/L) Carbon Dioxide 28 (Ref Range: 22-29 mmol/L) 27 (Ref Range: 22-29 mmol/L) 26 (Ref Range: 22-29 mmol/L) Anion Gap 12 (Ref Range: 12-20) 14 (Ref Range: 12-20) 11 L (Ref Range: 12-20) Blood Urea Nitrogen 22 H (Ref Range: 9-16 mg/dL) 20 H (Ref Range: 9-16 mg/dL) 23 H (Ref Range: 9-16 mg/dL) Creatinine 0.77 (Ref Range: 0.5-1.4 mg/dL) 0.79 (Ref Range: 0.5-1.4 mg/dL) 0.76 (Ref Range: 0.5-1.4 mg/dL) Estimated Glomerular Filt Rate > 60 > 60 > 60 Glucose Fasting 105 H (Ref Range: 60-99 mg/dL) 98 (Ref Range: 60-99 mg/dL) 105 H (Ref Range: 60-99 mg/dL) Calcium 8.8 (Ref Range: 8.4-10.2 mg/dL) 9.4 (Ref Range: 8.4-10.2 mg/dL) 9.3 (Ref Range: 8.4-10.2 mg/dL) * Lab:Complete Blood Count Aut o Diff * Collection Date 10/04/2024 06/07/2024 01/26/2024 Collection Time 06:09 AM 06:36 AM 06:20 AM Order Date 10/04/2024 06/07/2024 01/26/2024 White Blood Count 10.5 (Ref Range: 4.8-10.8 X10*3/uL) 9.5 (Ref Range: 4.8-10.8 X10*3/uL) 9.1 (Ref Range: 4.8-10.8 X10*3/uL) Red Blood Count 4.70 (Ref Range: 4.60-5.80 X10*6/uL) 4.37 L (Ref Range: 4.60-5.80 X10*6/uL) 4.35 L (Ref Range: 4.60-5.80 X10*6/uL) Hemoglobin 14.6 (Ref Range: 14.0-18.0 g/dl) 13.5 L (Ref Range: 14.0-18.0 g/dl) 13.3 L (Ref Range: 14.0-18.0 g/dl) Hematocrit 43.6 (Ref Range: 42.0-52.0 %) 39.9 L (Ref Range: 42.0-52.0 %) 39.6 L (Ref Range: 42.0-52.0 %) Mean Corpuscular Volume 92.8 (Ref Range: 80.0-98.0 fL) 91.3 (Ref Range: 80.0-98.0 fL) 91.0 (Ref Range: 80.0-98.0 fL) Mean Corpuscular Hemoglobin 31.1 (Ref Range: 27.0-33.0 pg) 30.9 (Ref Range: 27.0-33.0 pg) 30.6 (Ref Range: 27.0-33.0 pg) Mean Corpuscular HGB Conc 33.5 (Ref Range: 31.0-36.0 g/dl) 33.8 (Ref Range: 31.0-36.0 g/dl) 33.6 (Ref Range: 31.0-36.0 g/dl) Red Cell Distribution Width 14.3 (Ref Range: 11.0-16.0 %) 14.0 (Ref Range: 11.0-16.0 %) 14.1 (Ref Range: 11.0-16.0 %) Platelet Count 279 (Ref Range: 160-400 X10*3/uL) 355 (Ref Range: 160-400 X10*3/uL) 388 (Ref Range: 160-400 X10*3/uL) Mean Platelet Volume 11.4 (Ref Range: 9.4-12.4 fL) 9.9 (Ref Range: 9.4-12.4 fL) 9.9 (Ref Range: 9.4-12.4 fL) Neutrophils Percent Auto 52.7 (Ref Range: 45-73 %) 53.7 (Ref Range: 45-73 %) 54.0 (Ref Range: 45-73 %) Imm Gran Pct Auto 0.3 (Ref Range: 0.0-0.4 %) 0.4 (Ref Range: 0.0-0.4 %) 0.6 H (Ref Range: 0.0-0.4 %) Lymphocytes Percent Auto 35.5 (Ref Range: 20-40 %) 33.7 (Ref Range: 20-40 %) 32.5 (Ref Range: 20-40 %) Monocytes Percent Auto 9.2 (Ref Range: 2-11 %) 10.0 (Ref Range: 2-11 %) 10.5 (Ref Range: 2-11 %) Eosinophils Percent Auto 1.3 (Ref Range: 0-4 %) 1.5 (Ref Range: 0-4 %) 1.4 (Ref Range: 0-4 %) Basophils Percent Auto 1.0 (Ref Range: 0-2 %) 0.7 (Ref Range: 0-2 %) 1.0 (Ref Range: 0-2 %) NRBC Pct Auto 0.0 (Ref Range: 0.0-0.2 /100WBC) 0.0 (Ref Range: 0.0-0.2 /100WBC) 0.0 (Ref Range: 0.0-0.2 /100WBC) Neutrophils Absolute Auto 5.5 (Ref Range: 2.0-8.3 x10*3/uL) 5.1 (Ref Range: 2.0-8.3 x10*3/uL) 4.9 (Ref Range: 2.0-8.3 x10*3/uL) Imm Gran Abs Auto 0.03 (Ref Range: 0.00-0.03 X10*3/uL) 0.04 H (Ref Range: 0.00-0.03 X10*3/uL) 0.05 H (Ref Range: 0.00-0.03 X10*3/uL) Lymphocytes Absolute Auto 3.7 (Ref Range: 1.2-4.9 X10*3/uL) 3.2 (Ref Range: 1.2-4.9 X10*3/uL) 3.0 (Ref Range: 1.2-4.9 X10*3/uL) Monocytes Absolute Auto 1.0 (Ref Range: 0.1-1.2 X10*3/uL) 1.0 (Ref Range: 0.1-1.2 X10*3/uL) 1.0 (Ref Range: 0.1-1.2 X10*3/uL) Eosinophils Absolute Auto 0.1 (Ref Range: 0.0-0.4 X10*3/uL) 0.1 (Ref Range: 0.0-0.4 X10*3/uL) 0.1 (Ref Range: 0.0-0.4 X10*3/uL) Basophils Absolute Auto 0.1 (Ref Range: 0.0-0.2 X10*3/uL) 0.1 (Ref Range: 0.0-0.2 X10*3/uL) 0.1 (Ref Range: 0.0-0.2 X10*3/uL) NRBC Abs Auto 0.000 (Ref Range: 0.0-0.012 X10*3/uL) 0.000 (Ref Range: 0.0-0.012 X10*3/uL) 0.000 (Ref Range: 0.0-0.012 X10*3/uL) * Lab:Prothrombin Time Whole B ld POC * Collection Date 10/04/2024 09/24/2024 09/17/2024 09/03/2024 08/31/2024 08/06/2024 07/23/2024 Collection Time 08:45 AM 08:25 AM 08:51 AM 09:27 AM 08:06 AM 08:21 AM 08:24 AM Order Date 10/04/2024 09/24/2024 09/17/2024 09/03/2024 08/06/2024 07/23/2024 Prothrombin Time Whole Bld POC 23.8 H (Ref Range: 11.1-13.5 sec) 21.8 H (Ref Range: 11.1-13.5 sec) 31.6 H (Ref Range: 11.1-13.5 sec) 24.2 H (Ref Range: 11.1-13.5 sec) 18.8 H (Ref Range: 11.1-13.5 sec) 25.3 H (Ref Range: 11.1-13.5 sec) 21.4 H (Ref Range: 11.1-13.5 sec) * Lab:INR WHOLE BLOOD POC * Collection Date 10/04/2024 09/24/2024 09/17/2024 09/03/2024 08/31/2024 08/06/2024 07/23/2024 Collection Time 08:45 AM 08:25 AM 08:51 AM 09:27 AM 08:06 AM 08:21 AM 08:24 AM Order Date 10/04/2024 09/24/2024 09/17/2024 09/03/2024 08/06/2024 07/23/2024 INR WHOLE BLOOD POC 2.0 H (Ref Range: 0.9-1.1) 1.8 H (Ref Range: 0.9-1.1) 2.6 H (Ref Range: 0.9-1.1) 2.0 H (Ref Range: 0.9-1.1) 1.6 H (Ref Range: 0.9-1.1) 2.1 H (Ref Range: 0.9-1.1) 1.8 H (Ref Range: 0.9-1.1) * Lab:URINE DIP STICK * Collection Date 10/04/2024 09/30/2023 Order Date 10/04/2024 09/30/2023 SG 1.020 (Ref Range: 1.005 - 1.025) 1.020 (Ref Range: 1.005 - 1.025) pH 6.0 (Ref Range: 5.0 - 9.0) 6.0 (Ref Range: 5.0 - 9.0) AMY Negative (Ref Range: Negative -) Negative (Ref Range: Negative -) NIT Negative (Ref Range: Negative -) Negative (Ref Range: Negative -) PRO 15 (Ref Range: Negative - Trace) 15 (Ref Range: Negative - Trace) GLU Negative (Ref Range: Negative -) Negative (Ref Range: Negative -) KET 50 (Ref Range: Negative -) Negative (Ref Range: Negative -) UBG 0.2 (Ref Range: 0.1 - 1.8) 0.2 (Ref Range: 0.1 - 1.8) ARMANDO 1 (Ref Range: 0.2 - 1.3) Negative (Ref Range: 0.2 - 1.3) BLD 5-10 (Ref Range: Negative -) Negative (Ref Range: Negative -) * Examination: G eneral Examination: GENERAL APPEARANCE: p leasant, well nourished, well developed, in no acute distress, calm and relaxed, overweight, elderly man. HEAD: a traumatic, normocephalic. EYES: e talon, perrla, anicteric, conjugate. EARS: n ormal. NOSE: s eptum intact. ORAL CAVITY: n ormal, unremarkable. NECK/THYROID: n o jugular venous distention, no carotid bruit, thyroid normal, Old healed surgical incision base of right neck. LYMPH NODES: n o enlarged lymph nodes,spleen normal. SKIN: n o suspicious lesions, anicteric. HEART: n o clicks, gallops, murmurs, or rubs, regular rhythm, S1, S2 normal, no s3, or vascular bruits. LUNGS: , diminished breath sounds throughout, no wheezes, rales, rhonchi, good air movement. BREASTS: no masses palpable bilaterally. ABDOMEN: b owel sounds normal, no ascites, no organomegaly, no mass, overweight. RECTAL EXAM: n ot examined. MUSCULOSKELETAL: e xtremities unremarkable, no clubbing, cyanosis or edema. PERIPHERAL PULSES: n ormal. NEUROLOGIC: a lert and oriented, cranial nerves 2-12 grossly intact, deep tendon reflexes 2+ symmetrical, motor strength normal upper and lower extremities, sensory exam intact. PSYCH: a lert, oriented. Assessment: * Assessment: 1. S kin lesion of face - L98.9 (Primary) N otes :The area on his nose has the appearance of an actinic keratosis. It has only recently appeared. I have made a referral to dermatology for definitive diagnosis and treatment. 2 . C hronic lymphoid leukemia - C91.10 N otes :This diagnosis remains in remission since he finished his chemotherapy. 3 . F ormer smoker - Z87.891 N otes :He is highly motivated not to smoke and has a plan to prevent relapse in times of stress or illness. 4 . L sandra cancer - C34.90 N otes :He remains in remission with no relapse. He is no longer smoking. 5 . E nvironmental allergies - Z91.09 N otes :He has noted itching around his eyes and nasal congestion. He is using wndf-iqy-pzrkmaw medication. I recommended fluticasone and loratadine. 6 . H ypertension - I10 N otes :His blood pressure is stable today. 7 . D VT (deep venous thrombosis) - I82.409 N otes :He has had no blood clots. 8 . O verweight (BMI 25.0-29.9) - E66.3 N otes :He has lost 5 pounds and is still overweight. We discussed diet and nutrition. We made a plan to lose weight at a rate of one half of a pound per week through a diet restricted in calories combined with physical activity. 9 . C hronic nonintractable headache, unspecified headache type - R51 ? N otes :His headaches are improved. They're less frequent. He will continue on current therapy. 1 0. P rotein S deficiency - D68.59 N otes :He is doing well with his chronic anticoagulation. The protein S deficiency is no indication for lifelong therapy. 1 1. O ther depression - F32.89 N otes :His medication was increased to 100 mg daily. A follow-up visit was arranged. He has no suicidal ideation and is beginning to experience improvement. Plan: * Treatment: * Procedure Codes: * Preventive Medicine: Counseling: C are goal follow-up plan: Counseling for abnormal BMI given Y es Above Normal BMI Follow-up D ietary management education, guidance, and counseling, Dietary needs education, Exercise promotion: strength training S moking/Tobacco Use Patient counseled on the dangers of tobacco use and urged to quit. 0 10/15/2024 * Follow Up: A s Scheduled (Reason: OV) * Images: * Sign off status: Completed true * Provider: Annalise Felder MD Date: 0 10/15/2024 Generated for Frandy mittal/Apple/eTkaleighitting on: 0 02/08/2025 06:08 AM EDT History and Physical Notes * HPI (History of Present Illness) Category Sub-Category Detail Notes COVID-19 Screening Questions Have you had any new onset fever, chills, cough, congestion, sore throat, shortness of breath, muscle aches?: No Examination Category Sub-Category Detail Notes General Examination GENERAL APPEARANCE: pleasant , well nourished, well developed, in no acute distress, calm and relaxed, overweight, elderly man HEAD: atraumatic, normocep halic EYES: eomi, perrla, anicte mike, conjugate EARS: normal NOSE: septum intact NECK/THYROID: no jugular venous di stention, no carotid bruit, thyroid normal, Old healed surgical incision base of right neck HEART: no clicks, gallops, murmurs, or rubs, regular rhythm, S1, S2 normal, no s3, or vascular bruits LUNGS: , diminished breath sounds throughout, no wheezes, rales, rhonchi, good air movement ABDOMEN: bowel sounds normal, no ascites, no [...] PSYCH: alert, oriented ORAL CAVITY: normal, unremarkable Consultation Request Notes Referral Date Referring Provider Referred Provider Not es 10/15/2024 [facility] Evaluate and Treat New Lesion of Nose
--- OUTSIDE RECORDS SUMMARY | 2025-02-08 06:09 | XMS_ITS | Patient Health Record ---
Author Organization [facility] Address [address] [place] [address] Care Team Providers Care Stroke Program Coordinator Name Role Phone Jose Felder MD Primary Care Provider Unavailab Sharath Hopson Unavailable [phone] Allergies Allergen (clinical drug ingredient) Drug/Non Drug Allergy documented on EMR Reaction Allergy Type Onset Date Status seasonal allergies (uncoded) Unknown Allergy Inactive Reason For Referral No Information Medications Medication SIG (Take, Route, Frequency, Duration) Notes Start Date End Date Status Adderall Not-Taking Fluticasone Furoate Not-Taking Imitrex Not-Taking oxyCODONE HCl Not-Ta mera Losartan Potassium 25 MG 1 tablet Orally Once a day; Duration: 30 day(s) Active Simvastatin 40 MG 1 tablet in the even ing Orally Once a day; Duration: 30 day(s) Active Escitalopram Oxalate 10 MG 1 tablet Orally Once a day; Duration: 30 day(s) Active Night Splint AFO - L1930 as directed 09/24/2019 Active Propranolol HCl 160 mg Not-Taking Zocor Not-Taking Warfarin Sodium 5 MG 1 tablet Orally Onc e a day; Duration: 30 day(s) Active Social History Tobacco use other than smoking: Question Answer Notes Are you an other tobacco user? 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 Plan Of Treatment Pending Test Test Name Order Date X ray : Foot, left 3V 06/28/201318361,P6301-ROP TENDON SHEATH/LIGAMENT 0 10/12/201952776,T3997-TKG TENDON SHEATH/LIGAMENT 0 01/11/2014,X5825-GWH TENDON SHEATH/LIGAMENT 0 09/08/2013 Insurance Providers Payer Name Payer Address Payer Phone Subscriber Number Group Number Insured Name Patient Relationship to Insured Coverage Start Date Coverage End Date Medicare National [employer] [address] [place] [address] [id number] Jem Gallardo Self - patient is the insured [employer] [address] [place] [address] [phone] [id number] Jem Gallardo Self - patient is the insured Medical (General) History Medical History History ICD Code back, hip, knee pain cancer chicken pox cholesterol chronic sinusitis headaches/migraines high blood pressure joint implants/screws measles menieres disease mumps sciatica DVT Numbness Surgical History Surgery Date(Month/Year) spine surgery tumor removal nail removal rotator cuff surgery right 07/06/13 Hospitalization History Reason Date(Month/Year) rotator cuff surgery right arm 07/06/13 [facility] - fell off of a ladder 03/28/15 [facility]-blood clot in leg went into lungs 20 17
[2025-02-08 06:21] LABS: MANUAL DIFF FLAG NO
[2025-02-08 07:33] LABS: Hematocrit 36.6 % (42.0-52.0); Hemoglobin 12.6 g/dl (14.0-18.0); Imm Gran Abs Auto 0.04 X10*3/uL (0.00-0.03); Imm Gran Pct Auto 0.4 % (0.0-0.4); Lymphocytes Absolute Auto 3.4 X10*3/uL (1.2-4.9); Mean Corpuscular HGB Conc 34.4 g/dl (31.0-36.0); Mean Corpuscular Hemoglobin 31.3 pg (27.0-33.0); Mean Corpuscular Volume 90.8 fL (80.0-98.0); NRBC Abs Auto 0.000 X10*3/uL (0.0-0.012); NRBC Pct Auto 0.0 /100WBC (0.0-0.2); Platelet Count 328 X10*3/uL (160-400); Red Blood Count 4.03 X10*6/uL (4.60-5.80); White Blood Count 10.3 X10*3/uL (4.8-10.8)
[2025-02-08 07:51] LABS: Alanine Aminotransferase 25 U/L (0-40); Albumin Level 3.8 g/dL (3.5-5.0); Alkaline Phosphatase 64 U/L (39-117); Anion Gap 12 (12-20); Aspartate Amino Transferase 35 U/L (5-37); Blood Urea Nitrogen 19 mg/dL (9-16); Calcium 8.4 mg/dL (8.4-10.2); Carbon Dioxide 25 mmol/L (22-29); Chloride 109 mmol/L (96-108); Cholesterol 150 mg/dL (<200); Estimated Glomerular Filt Rate > 60; HDL Cholesterol 37 mg/dL (>40); Potassium 3.8 mmol/L (3.3-5.1); Sodium 142 mmol/L (135-145); Total Protein 6.3 g/dL (6.5-8.0); Triglycerides 122 mg/dL (<150)
[2025-02-09 11:47] LABS: Free Prostate Spec Ag 0.5 ng/mL; Percent Free Prostate Spec Ag 33 % (calc) (>25)
== END 2025-02-08 06:07 | disposition home or self-care (01) ==
LOC: HO.LAB 06:06
PROVIDERS: PCP Internal Medicine Medical Oncology; Visit Provider Internal Medicine Medical Oncology
DX: C91.10 Chronic lymphocytic leukemia of B-cell type not having achieved remission (principal); N40.0 Benign prostatic hyperplasia without lower urinary tract symptoms; E66.3 Overweight; Z68.25 Body mass index [BMI] 25.0-25.9, adult
CPT/HCPCS: 36415; 80053; 80061; 84154; 85025

== ENCOUNTER 2025-02-14 08:52 | Outpatient (AMB) | payer MEDICARE, SELFPAY ==
--- OUTSIDE RECORDS SUMMARY | 2025-02-03 08:15 | XMS_ITS ---
Author Organization Jose Felder III, MD Address [address] [place] [address] [address] [place] [place] [address] Care Team Providers Care Financial Reserve Clerk Name Role Phone Jose Felder Primary Care Provider [phone] REASON FOR VISIT Follow up Social History Sex Assigned At : Social History Observation Description Sex Assigned At Male Encounters Encounter Location Date Provider Diagnosis Jose Felder III, MD [address] [place] [address] [place] [address] 02/03/2025 Jose Felder Plan Of Treatment Next Appt Details Provider Name:Jose Felder, 02/16/2025 09:45:00 AM, [address] [place] [address] [place], [address], Provider Name:Jose Felder, 10/05/2025 02:30:00 PM, [address] [place] [address] [place], [address], Progress Notes * Jem QUINTEROSDOB:1945 ( 79 yo M)Acc No.[id number]:02/03/2025 Progress Notes Patient: Jem JI Provider: Annalise Felder MD :1945 A ge:79 Y S ex:Male Date:02/03/2025 Address:[address] [place], [id number] Subjective: * Chief Complaints: * 1 . Follow up. * Medical History: Objective: * Vitals: Assessment: Plan: * Treatment: * Images: * The named appointment provid er may or may not be the originator of this progress note, and it is not deemed complete until electronically signed by the appointment provider. Sign off status: Pending * Provider: Annalise Felder MD Date: 02/03/2025 Generated for Frandy mittal/Apple/Rubenitting on: 02/14/2025 09:00 AM EDT
[2025-02-14 09:00] LABS: Prothrombin Time Whole Bld POC 28.9 sec (11.1-13.5); ~PT, ~INR - Anti Coag Clinic 2.4 (0.9-1.1)
--- OUTSIDE RECORDS SUMMARY | 2025-02-14 09:01 | XMS_ITS | Patient Health Record ---
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 Plan Of Treatment Pending Test Test Name Order Date X ray : Foot, left 3V 06/28/2013 [id number] TENDON SHEATH/LIGAMENT 0 09/08/2013,[id number] TENDON SHEATH/LIGAMENT 0 01/11/2014,[id number] TENDON SHEATH/LIGAMENT 0 10/12/2019 Insurance Providers Payer Name Payer Address Payer Phone Subscriber Number Group Number Insured Name Patient Relationship to Insured Coverage Start Date Coverage End Date Medicare National Govt [employer] [facility] [address] [place] [address] [id number] Jem Gallardo Self - patient is the insured [employer] [address] [place] [address] [phone] [id number] Jem Gallardo Self - patient is the [...] [facility] went into lungs 17
--- NOTE | 2025-02-14 09:12 | MHC.OFFVISCO ---
Intake Intake Visit Reasons: Anticoagulation Allergies Seasonal Allergies Allergy (Intermediate, Verified 02/14/25 08:53) Cough venlafaxine Adverse Reaction (Intermediate, Verified 02/14/25 08:53) Headache Medication List - Last Reconciled 02/14/25 by Brenda Trimble RN losartan 25 mg PO DAILY simvastatin 40 mg PO DAILY sumatriptan succinate 100 mg PO PRN vitamin B complex PO [VITAMIN D 3 PO] warfarin 5 mg See Protocol PO DAILY Nursing Note INR: 2.4 in therapeutic range Medications and supplements reviewed- PT states he may have not taken his warfarin dose correctly x 1 month No changes in health, diet, medications, or supplements, Denies any signs and symptoms of bleeding or bruising or clotting. Bleeding, bruising, clotting discussed Nutritional guidance given - EAT A MIX Dose: 7.5MG X 4 DAYS/ 5MG X 3 DAYS- keep same for now F/U INR: 10 DAYS Patient verbalizes understanding of instructions given Anti-Coag Initial Assessment Social Hx Patient Tobacco Use Status: Former Tobacco user Tobacco use type: Cigar alcohol intake: never Coding Level of Care Code Est Patient Level 1 Diagnoses Current use of anticoagulant therapy Z79.01 Results AMB INR Fingerstick AMB INR Fingerstick 2.4 Last Edit by Brenda Trimble RN on 02/14/25 09:01 MANUAL ENTRY Assessment & Plan Assessment & Plan (1) Current use of anticoagulant therapy: Code(s): Z79.01 - detention (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
== END 2025-02-14 09:15 | disposition home or self-care (01) ==
LOC: HO.ACS 08:52
PROVIDERS: PCP Internal Medicine Medical Oncology; Visit Provider Internal Medicine Medical Oncology
DX: Z79.01 Long term (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 (principal)

== ENCOUNTER → 2025-02-14 08:52 | Outpatient (BNVA) | payer MEDICARE, SELFPAY | PROVIDERS: PCP Internal Medicine Medical Oncology; Visit Provider Internal Medicine Medical Oncology | DX: Z86.718 Personal history of other venous thrombosis and embolism (principal); Z79.01 Long term (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; Z51.81 Encounter for therapeutic drug level monitoring | CPT/HCPCS: 85610; 99211 ==

== ENCOUNTER 2025-02-16 10:15 | Outpatient (REF) | payer MEDICARE, SELFPAY ==
--- OUTSIDE RECORDS SUMMARY | 2025-02-08 10:26 | XMS_ITS ---
Author Organization Jose Felder III, MD Address [address] [place] [address] [address] [place] [place] [address] Care Team Providers Care Cattle Manager Name Role Phone Jose Felder Primary Care Provider [phone] REASON FOR VISIT Regarding medication list Social History Sex Assigned At : Social History Observation Description Sex Assigned At Male Encounters Encounter Location Date Provider Diagnosis Jose Felder III, MD [address] [place] [address] [place] [address] 02/08/2025 Jose Felder Plan Of Treatment Next Appt Details Provider Name:Jose Felder, 02/24/2025 09:00:00 AM, [address] [place] [address] [place], [address], Provider Name:Jose Felder, 10/05/2025 02:30:00 PM, [address] [place] [address] [place], [address], Progress Notes * Jem QUINTEROSDOB:1945 ( 79 yo M)Acc No.[id number]:02/08/2025 Patient: Jem JI :1945 A ge:79 Y S ex:Male Address:[address] [place] [address] * true * Date: Generated for Frandy mittal/Apple/Amauri on: 0 02/16/2025 10:48 AM EDT
--- NOTE | ~2025-02-16 | XR_ITS ---
EXAMINATION: XR THORACIC SPINE CLINICAL INFORMATION: THORACIC BACK PAIN COMPARISON: March 27, 2022. TECHNIQUE: AP lateral and swimmer's projection. FINDINGS: There is an anterior metallic plate and intervertebral disc spacer placement at C5 C7. Grade 1 anterolisthesis, C7-T1. Small marginal osteophyte formation at multiple levels and to a syndesmophyte formation in the mid thoracic spine. Multilevel endplate sclerosis. No acute cortical disruption. No lytic or blastic lesions. Vascular clips in the mediastinum. XR/XR thoracic spine 3V IMPRESSION: Multilevel spondylosis. Grade 1 anterolisthesis C7-T1. Status post ACDF C5 C7. Electronically signed by: Last Gunter MD 02/16/2025 10:56 AM EDT
--- OUTSIDE RECORDS SUMMARY | 2025-02-16 10:49 | XMS_ITS | Encounter Summary ---
Author Organization [facility] Address [address] [place] [address] Care Team Providers Care Hyster Machine Operator Name Role Phone Wilner Paulson MD Primary Care Provider Unavailable Jose Felder MD Primary Care Provider Vladimir kapoor Encounter Details Date Type Department Care Team Description 02/27/2017 Business Doc Medical Records [address] [place] [address] Abstract, Provider Social History Tobacco Use Types [...] on filedocumented in this encounter Care Teams Hyster Machine Operator Relationship Specialty Start Date End Date Wilner Paulson MD PCP - General Internal Medicine 11/13/1601/02 Jose Felder MD PCP - General Oncology/Hematology 01/19/18 documented as of this encounter
--- OUTSIDE RECORDS SUMMARY | 2025-02-16 10:49 | XMS_ITS | Patient Health Record ---
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 Plan Of Treatment Pending Test Test Name Order Date X ray : Foot, left 3V 06/28/2013 41600,[id number] TENDON SHEATH/LIGAMENT 0 09/08/2013,[id number] TENDON SHEATH/LIGAMENT 0 01/11/2014,[id number] TENDON SHEATH/LIGAMENT 0 10/12/2019 Insurance Providers Payer Name Payer Address Payer Phone Subscriber Number Group Number Insured Name Patient Relationship to Insured Coverage Start Date Coverage End Date Medicare National Govt [email or web address] [facility] [address] [place] [address] [id number] Jem Gallardo Self - patient is the insured [employer] [address] [place] [address] [phone] [id number] Jem Gallardo Self - patient is the [...]
[2025-02-16 12:04] LABS: Amylase 57 U/L (28-100); Cholesterol 166 mg/dL (<200); HDL Cholesterol 43 mg/dL (>40); Triglycerides 73 mg/dL (<150)
== END 2025-02-16 10:16 | disposition home or self-care (01) ==
LOC: HO.LAB 10:15
PROVIDERS: PCP Internal Medicine Medical Oncology; Visit Provider Internal Medicine Medical Oncology
DX: M54.6 Pain in thoracic spine (principal); R10.9 Unspecified abdominal pain; E66.3 Overweight
CPT/HCPCS: 36415; 72072; 80061; 82150

== ENCOUNTER → 2025-02-16 10:42 | Outpatient (BNV) | payer MEDICARE, SELFPAY | PROVIDERS: PCP Internal Medicine Medical Oncology; Visit Provider Radiology Diagnostic Radiology | DX: M54.6 Pain in thoracic spine (principal) | CPT/HCPCS: 72072 ==

== ENCOUNTER 2025-02-25 08:17 | Outpatient (AMB) | payer MEDICARE, SELFPAY ==
--- OUTSIDE RECORDS SUMMARY | 2025-02-25 08:25 | XMS_ITS | Patient Health Record ---
Author Organization [facility] Address [address] [facility] [place] [address] Care Team Providers Care Director Learning Name Role Phone Jose Felder MD Primary Care Provider Unavailab Sharath Hopson Unavailable [phone] Allergies Allergen (clinical drug ingredient) Drug/Non Drug [...] Date X ray : Foot, left 3V 06/28/201318793,[id number] TENDON SHEATH/LIGAMENT 0 09/08/201348390,[id number]-DRI TENDON SHEATH/LIGAMENT 0 01/11/2014,[id number] TENDON SHEATH/LIGAMENT 0 10/12/2019 Insurance Providers Payer Name Payer Address Payer Phone Subscriber Number Group Number Insured Name Patient Relationship to Insured Coverage Start Date Coverage End Date Medicare National [employer] [address] [place] [address] [id number] Jem Gallardo Self - patient is the insured [employer] [address] [place] [address] [phone] [id number] Jem Gallardo Self - patient is the [...]
--- OUTSIDE RECORDS SUMMARY | 2025-02-25 08:25 | XMS_ITS | Patient Health Record ---
Author Organization Jose Felder III, MD Address [address] [address] [address] PACKER Kervin [place] [address] Care Team Providers Care Office Secretary Name Role Phone Jose Felder Primary Care [...] 0.2 - 1.3 BLD 5-10 Negative - Lipid Panel (Not yet reviewe d by provider) Interpretation: Performing Lab:[facility], [address] [place] [phone] Notes/Report: Triglycerides 73 <150 mg/dL Desirable Triglyceride: [...] results in patients with liver disease. Amylase (Not yet reviewed b y provider) Interpretation: Performing Lab:[facility], [address] [place] [phone] Notes/Report: Amylase 57 28-100 U/L XR thoracic spine 3V (Not ye t reviewed by provider) Interpretation: Performing Lab: Notes/Report: [address] [address] XRay Report Signed Patient: Jem Gallardo MR#: [id number] 3 : 1945 Acct:[id number] Age/Sex: 79 / M ADM Date: 02/16/25 Loc: HO.LAB Attending Dr: Jose Felder MD Ordering Physician: Jose Felder MD Date of Service: 02/16/25 Procedure(s): XR thoracic spine 3V Accession Number(s): [id number] cc: Jose Felder MD EXAMINATION: XR THORACIC [...] 02/16/25 1056 DD/ 1045 TD/TT: 02/16/25 1051 [employer] Controls Supervisor: [address] [address] XRay Report Signed Patient: Jem Gallardo MR#: [id number] 3 : 1945 Acct:[id number] Age/Sex: 79 / M ADM Date: 02/16/25 Loc: HO.LAB Attending Dr: Jose Felder MD Ordering Physician: Jose Felder MD Date of Service: 02/16/25 Procedure(s): XR thoracic spine 3V Accession Number(s): [id number] cc: Jose Felder MD EXAMINATION: XR THORACIC [...] lesions. Vascular clips in th e mediastinum. XR/XR thoracic spine 3V IMPRESSION: Multilevel spondylosis. Grade 1 anterolisthe sis C7-T1. Status post ACDF C5 C7. Electronically jes d by: Last Gunter MD 02/16/2025 10:56 AM EDT RP Dictated By: Last Jose MD Signed By: <Electronically signed by Last Turner MD in OV> 02/16/25 1056 DD/ 1045 TD/TT: 02/16/25 1051 [employer] Supervisor: INR WHOLE BLOOD POC Reviewed date:03/21/2024 06:44:39 AM Interpretation: Performing Lab:[facility], [address] [place] [phone] Notes/Report: PT, INR - Anti Coag Clinic 1.7 0.9-1.1 METER #: [id number] INTERNATIONAL NORMALIZED RATIO (INR) REFERENCE RANGES Reference [...] OC Reviewed date:03/21/2024 06:44:39 AM Interpretation: Performing Lab:[facility], [address] [place] [phone] Notes/Report: Prothrombin Time Whole Bld POC 20.4 11.1-13.[address] head/brain wo con Reviewed date:03/21/2024 06:44:39 AM Interpretation: Performing Lab: Notes/Report: [address] [address] [address] Scan Report Signed Patient: Jem Gallardo MR#: [id number] 3 : 1945 Acct:[id number] Age/Sex: 79 / M ADM Date: 03/15/24 Loc: HO.ED Attending Dr: Ordering Physician: Lynne Fields Date of Service: 03/15/24 Procedure(s): CT head/brain wo IV con Accession Number(s): [id number] cc: Jose Felder MD; Lynne Fields EXAMINATION: [...] in OV> 03/15/24 1601 DD/ 1227 TD/TT: [employer] Supervisor: [address] [address] [address] Scan Report Signed Patient: Jem Gallardo MR#: [id number] 3 : 1945 Acct:[id number] Age/Sex: 79 / M ADM Date: 03/15/24 Loc: HO.ED Attending Dr: Ordering Physician: Lynne Fields Date of Service: 03/15/24 Procedure(s): CT head/brain wo IV con Accession Number(s): [id number] cc: Jose Felder MD; Lynne Fields EXAMINATION: [...] in OV> 03/15/24 1601 DD/ 1227 TD/TT: [employer] Supervisor: INR WHOLE BLOOD POC Reviewed date:03/25/2024 08:29:44 PM Interpretation: Performing Lab:[facility], [address] [place] [phone] Notes/Report: PT, INR - Anti Coag Clinic 2.1 0.9-1.1 METER #: [id number] INTERNATIONAL NORMALIZED RATIO (INR) REFERENCE RANGES Reference [...] OC Reviewed date:03/25/2024 08:29:44 PM Interpretation: Performing Lab:[facility], [address] [place] [phone] Notes/Report: Prothrombin Time Whole Bld POC 25.8 11.1-13.5 sec INR WHOLE BLOOD POC Reviewed date:04/21/2024 06:39:37 AM Interpretation: Performing Lab:[facility], [address] [place] [phone] Notes/Report: PT, INR - Anti Coag Clinic 1.9 0.9-1.1 METER #: [id number] INTERNATIONAL NORMALIZED RATIO (INR) REFERENCE RANGES Reference [...] OC Reviewed date:04/21/2024 06:39:38 AM Interpretation: Performing Lab:[facility], [address] [place] [phone] Notes/Report: Prothrombin Time Whole Bld POC 22.2 11.1-13.5 sec INR WHOLE BLOOD POC Reviewed date:05/18/2024 11:38:32 AM Interpretation: Performing Lab:[facility], [address] [place] [phone] Notes/Report: PT, INR - Anti Coag Clinic 2.1 0.9-1.1 METER #: [id number] INTERNATIONAL NORMALIZED RATIO (INR) REFERENCE RANGES Reference [...] OC Reviewed date:05/18/2024 11:38:32 AM Interpretation: Performing Lab:[facility], [address] [place] [phone] Notes/Report: Prothrombin Time Whole Bld POC 25.7 11.1-13.5 sec Complete Blood Count Auto Di ff Reviewed date:06/07/2024 11:48:38 AM Interpretation: Performing Lab:[address] [phone] Notes/Report: White Blood Count 9.5 4.8-10.8 X10*3/uL [...] 0.0-0.2 /100WBC Neutrophils Absolute Auto 5.1 2.0-8.3 x10*3/uL Imm Gran Abs Auto 0.04 0.00-0.03 X10*3/uL Lymphocytes Absolute Auto 3.2 1.2-4.9 X10*3/uL Monocytes Absolute Auto 1.0 0.1-1.2 X10*3/uL Eosinophils Absolute Auto 0.1 0.0-0.4 X10*3/uL Basophils Absolute Auto 0.1 0.0-0.2 X10*3/uL NRBC Abs Auto 0.000 0.0-0.012 X10*3/uL Comprehensive Cliff. Panel Fa st Reviewed date:06/07/2024 11:48:38 AM Interpretation: Performing Lab:[facility], [address] [place] [phone] Notes/Report: Sodium 144 135-145 mmol/L Potassium 4.7 3.3-5.1 mmol/L Chloride 108 96-108 mmol/L Carbon Dioxide 27 22-29 mmol/L Anion Gap 14 12-20 Blood Urea Nitrogen 20 9-16 mg/dL Creatinine 0.79 0.5-1.4 mg/dL Estimated Glomerular Filt Rate > 60 NOTE: For -Sudanese individuals, multiply the result by 1.210. Chronic [...] Panel Reviewed date:06/07/2024 11:48:38 AM Interpretation: Performing Lab:[facility], [address] [place] [phone] Notes/Report: Triglycerides 66 <150 mg/dL Desirable Triglyceride: [...] Antigen Reviewed date:06/07/2024 11:48:38 AM Interpretation: Performing Lab:[facility], [address] [place] [phone] Notes/Report: Prostate Specific Antigen 1.23 <0.05-4.0 ng/mL PSA methodology: Sheets Alinity i Chemiluminescent Microparticle Immunoassay (CMIA) INR WHOLE BLOOD POC Reviewed date:06/15/2024 08:32:55 AM Interpretation: Performing Lab:[facility], [address] [place] [phone] Notes/Report: PT, INR - Anti Coag Clinic 2.0 0.9-1.1 METER #: [id number] INTERNATIONAL NORMALIZED RATIO (INR) REFERENCE RANGES Reference [...] OC Reviewed date:06/15/2024 08:32:55 AM Interpretation: Performing Lab:[facility], [address] [place] [phone] Notes/Report: Prothrombin Time Whole Bld POC 24.4 11.1-13.5 sec INR WHOLE BLOOD POC Reviewed date:07/16/2024 08:35:52 AM Interpretation: Performing Lab:[facility], [address] [place] [phone] Notes/Report: PT, INR - Anti Coag Clinic 1.6 0.9-1.1 METER #: [id number] INTERNATIONAL NORMALIZED RATIO (INR) REFERENCE RANGES Reference [...] OC Reviewed date:07/16/2024 08:35:52 AM Interpretation: Performing Lab:[facility], [address] [place] [phone] Notes/Report: Prothrombin Time Whole Bld POC 19.4 11.1-13.5 sec INR WHOLE BLOOD POC Reviewed date:07/23/2024 09:07:49 PM Interpretation: Performing Lab:[facility], [address] [place] [phone] Notes/Report: PT, INR - Anti Coag Clinic 1.8 0.9-1.1 METER #: [id number] INTERNATIONAL NORMALIZED RATIO (INR) REFERENCE RANGES Reference [...] OC Reviewed date:07/23/2024 09:07:49 PM Interpretation: Performing Lab:[facility], [address] [place] [phone] Notes/Report: Prothrombin Time Whole Bld POC 21.4 11.1-13.5 sec INR WHOLE BLOOD POC Reviewed date:08/06/2024 08:49:39 PM Interpretation: Performing Lab:[facility], [address] [place] [phone] Notes/Report: PT, INR - Anti Coag Clinic 2.1 0.9-1.1 METER #: [id number] INTERNATIONAL NORMALIZED RATIO (INR) REFERENCE RANGES Reference [...] OC Reviewed date:08/06/2024 08:49:39 PM Interpretation: Performing Lab:[facility], [address] [place] [phone] Notes/Report: Prothrombin Time Whole Bld POC 25.3 11.1-13.5 sec INR WHOLE BLOOD POC Reviewed date:09/02/2024 06:23:24 AM Interpretation: Performing Lab:[facility], [address] [place] [phone] Notes/Report: PT, INR - Anti Coag Clinic 1.6 0.9-1.1 METER #: [id number] INTERNATIONAL NORMALIZED RATIO (INR) REFERENCE RANGES Reference [...] OC Reviewed date:09/02/2024 06:23:24 AM Interpretation: Performing Lab:[facility], [address] [place] [phone] Notes/Report: Prothrombin Time Whole Bld POC 18.8 11.1-13.5 sec INR WHOLE BLOOD POC Reviewed date:09/05/2024 08:45:11 AM Interpretation: Performing Lab:[facility], [address] [place] [phone] Notes/Report: PT, INR - Anti Coag Clinic 2.0 0.9-1.1 METER #: [id number] INTERNATIONAL NORMALIZED RATIO (INR) REFERENCE RANGES Reference [...] OC Reviewed date:09/05/2024 08:45:11 AM Interpretation: Performing Lab:[facility], [address] [place] [phone] Notes/Report: Prothrombin Time Whole Bld POC 24.2 11.1-13.5 sec INR WHOLE BLOOD POC Reviewed date:09/19/2024 09:54:44 AM Interpretation: Performing Lab:[facility], [address] [place] [phone] Notes/Report: PT, INR - Anti Coag Clinic 2.6 0.9-1.1 METER #: [id number] INTERNATIONAL NORMALIZED RATIO (INR) REFERENCE RANGES Reference [...] OC Reviewed date:09/19/2024 09:54:44 AM Interpretation: Performing Lab:[facility], [address] [place] [phone] Notes/Report: Prothrombin Time Whole Bld POC 31.6 11.1-13.5 sec INR WHOLE BLOOD POC Reviewed date:09/24/2024 11:58:00 AM Interpretation: Performing Lab:[facility], [address] [place] [phone] Notes/Report: PT, INR - Anti Coag Clinic 1.8 0.9-1.1 METER #: [id number] INTERNATIONAL NORMALIZED RATIO (INR) REFERENCE RANGES Reference [...] OC Reviewed date:09/24/2024 11:58:00 AM Interpretation: Performing Lab:[facility], [address] [place] [phone] Notes/Report: Prothrombin Time Whole Bld POC 21.8 11.1-13.5 sec Complete Blood Count Auto Di ff Reviewed date:10/04/2024 11:26:43 AM Interpretation: Performing Lab:[facility], [address] [place] [phone] Notes/Report: White Blood Count 10.5 4.8-10.8 X10*3/uL [...] 0.0-0.2 /100WBC Neutrophils Absolute Auto 5.5 2.0-8.3 x10*3/uL Imm Gran Abs Auto 0.03 0.00-0.03 X10*3/uL Lymphocytes Absolute Auto 3.7 1.2-4.9 X10*3/uL Monocytes Absolute Auto 1.0 0.1-1.2 X10*3/uL Eosinophils Absolute Auto 0.1 0.0-0.4 X10*3/uL Basophils Absolute Auto 0.1 0.0-0.2 X10*3/uL NRBC Abs Auto 0.000 0.0-0.012 X10*3/uL Comprehensive Cliff. Panel Fa Reviewed date:10/04/2024 11:26:43 AM Interpretation: Performing Lab:[address] [phone] Notes/Report: Sodium 144 135-145 mmol/L Potassium 4.6 [...] Panel Reviewed date:10/04/2024 11:26:43 AM Interpretation: Performing Lab:[address] [phone] Notes/Report: Triglycerides 81 <150 mg/dL Desirable Triglyceride: [...] POC Reviewed date:10/04/2024 11:26:43 AM Interpretation: Performing Lab:[facility], [address] [place] [phone] Notes/Report: PT, INR - Anti Coag Clinic 2.0 0.9-1.1 METER #: [id number] INTERNATIONAL NORMALIZED RATIO (INR) REFERENCE RANGES Reference [...] OC Reviewed date:10/04/2024 11:26:43 AM Interpretation: Performing Lab:[facility], [address] [place] [phone] Notes/Report: Prothrombin Time Whole Bld POC 23.8 11.1-13.5 sec INR WHOLE BLOOD POC Reviewed date:10/19/2024 12:18:43 PM Interpretation: Performing Lab:[facility], [address] [place] [phone] Notes/Report: PT, INR - Anti Coag Clinic 1.7 0.9-1.1 METER #: [id number] INTERNATIONAL NORMALIZED RATIO (INR) REFERENCE RANGES Reference [...] OC Reviewed date:10/19/2024 12:18:43 PM Interpretation: Performing Lab:[facility], [address] [place] [phone] Notes/Report: Prothrombin Time Whole Bld POC 20.9 11.1-13.5 sec INR WHOLE BLOOD POC Reviewed date:10/30/2024 07:56:40 AM Interpretation: Performing Lab:[facility], [address] [place] [phone] Notes/Report: PT, INR - Anti Coag Clinic 2.5 0.9-1.1 METER #: [id number] INTERNATIONAL NORMALIZED RATIO (INR) REFERENCE RANGES Reference [...] OC Reviewed date:10/30/2024 07:56:40 AM Interpretation: Performing Lab:[facility], [address] [place] [phone] Notes/Report: Prothrombin Time Whole Bld POC 30.4 11.1-13.5 sec INR WHOLE BLOOD POC Reviewed date:11/12/2024 08:31:52 PM Interpretation: Performing Lab:[facility], [address] [place] [phone] Notes/Report: PT, INR - Anti Coag Clinic 2.0 0.9-1.1 METER #: [id number] INTERNATIONAL NORMALIZED RATIO (INR) REFERENCE RANGES Reference [...] OC Reviewed date:11/12/2024 08:31:52 PM Interpretation: Performing Lab:[facility], [address] [place] [phone] Notes/Report: Prothrombin Time Whole Bld POC 24.5 11.1-13.5 sec INR WHOLE BLOOD POC Reviewed date:12/01/2024 07:02:07 AM Interpretation: Performing Lab:[facility], [address] [place] [phone] Notes/Report: PT, INR - Anti Coag Clinic 1.8 0.9-1.1 METER #: [id number] INTERNATIONAL NORMALIZED RATIO (INR) REFERENCE RANGES Reference [...] OC Reviewed date:12/01/2024 07:02:07 AM Interpretation: Performing Lab:[facility], [address] [place] [phone] Notes/Report: Prothrombin Time Whole Bld POC 21.1 11.1-13.5 sec INR WHOLE BLOOD POC Reviewed date:12/14/2024 10:11:09 AM Interpretation: Performing Lab:[address] [phone] Notes/Report: PT, INR - Anti Coag Clinic 2.0 0.9-1.1 METER #: [id number] INTERNATIONAL NORMALIZED RATIO (INR) REFERENCE RANGES Reference [...] Prothrombin Time Whole Bld P OC Reviewed date:12/14/2024 10:11:09 AM Interpretation: Performing Lab:[facility], [address] [place] [phone] Notes/Report: Prothrombin Time Whole Bld POC 24.1 11.1-13.5 sec INR WHOLE BLOOD POC Reviewed date:12/28/2024 09:33:50 AM Interpretation: Performing Lab:[facility], [address] [place] [phone] Notes/Report: PT, INR - Anti Coag Clinic 2.7 0.9-1.1 METER #: [id number] INTERNATIONAL NORMALIZED RATIO (INR) REFERENCE RANGES Reference [...] Prothrombin Time Whole Bld P OC Reviewed date:12/28/2024 09:33:50 AM Interpretation: Performing Lab:[facility], [address] [place] [phone] Notes/Report: Prothrombin Time Whole Bld POC 32.7 11.1-13.5 sec INR WHOLE BLOOD POC Reviewed date:01/19/2025 01:54:32 PM Interpretation: Performing Lab:[facility], [address] [place] [phone] Notes/Report: PT, INR - Anti Coag Clinic 1.6 0.9-1.1 METER #: [id number] INTERNATIONAL NORMALIZED RATIO (INR) REFERENCE RANGES Reference [...] Prothrombin Time Whole Bld P OC Reviewed date:01/19/2025 01:54:32 PM Interpretation: Performing Lab:[facility], [address] [place] [phone] Notes/Report: Prothrombin Time Whole Bld POC 18.9 11.1-13.5 sec INR WHOLE BLOOD POC Reviewed date:02/02/2025 03:50:50 PM Interpretation: Performing Lab:[facility], [address] [place] [phone] Notes/Report: PT, INR - Anti Coag Clinic 1.9 0.9-1.1 METER #: [id number] INTERNATIONAL NORMALIZED RATIO (INR) REFERENCE RANGES Reference [...] Prothrombin Time Whole Bld P OC Reviewed date:02/02/2025 03:50:50 PM Interpretation: Performing Lab:[facility], [address] [place] [phone] Notes/Report: Prothrombin Time Whole Bld POC 22.4 11.1-13.5 sec Complete Blood Count Auto Di ff Reviewed date:02/09/2025 01:28:09 PM Interpretation: Performing Lab:[facility], [address] [place] [phone] Notes/Report: White Blood Count 10.3 4.8-10.8 X10*3/uL Red Blood Count 4.03 4.60-5.80 X10*6/uL Hemoglobin 12.6 14.0-18.0 g/dl Hematocrit 36.6 42.0-52.0 % Mean Corpuscular Volume 90.8 80.0-98.0 fL Mean Corpuscular Hemoglobin 31.3 27.0-33.0 pg Mean Corpuscular HGB Conc 34.4 31.0-36.0 g/dl Red Cell Distribution Width 14.0 11.0-16.0 % Platelet Count 328 160-400 X10*3/uL Mean Platelet Volume 9.9 9.4-12.4 fL Neutrophils Percent Auto 55.7 45-73 % Imm Gran Pct Auto 0.4 0.0-0.4 % Lymphocytes Percent Auto 32.6 20-40 % Monocytes Percent Auto 8.6 2-11 % Eosinophils Percent Auto 1.8 0-4 % Basophils Percent Auto 0.9 0-2 % NRBC Pct Auto 0.0 0.0-0.2 /100WBC Neutrophils Absolute Auto 5.8 2.0-8.3 x10*3/uL Imm Gran Abs Auto 0.04 0.00-0.03 X10*3/uL Lymphocytes Absolute Auto 3.4 1.2-4.9 X10*3/uL Monocytes Absolute Auto 0.9 0.1-1.2 X10*3/uL Eosinophils Absolute Auto 0.2 0.0-0.4 X10*3/uL Basophils Absolute Auto 0.1 0.0-0.2 X10*3/uL NRBC Abs Auto 0.000 0.0-0.012 X10*3/uL Comprehensive Cliff. Panel Fa st Reviewed date:02/09/2025 01:28:09 PM Interpretation: Performing Lab:[facility], [address] [place] [phone] Notes/Report: Sodium 142 135-145 mmol/L Potassium 3.8 3.3-5.1 mmol/L Chloride 109 96-108 mmol/L Carbon Dioxide 25 22-29 mmol/L Anion Gap 12 12-20 Blood Urea Nitrogen 19 9-16 mg/dL Creatinine 0.73 0.5-1.4 mg/dL Estimated Glomerular Filt Rate > 60 Chronic Kidney Disease: Estimated GFR < 60 mL/min/1.73m2 Severe Kidney Disease: Estimated GFR < 15 mL/min/1.73m2 Glucose Fasting 126 60-99 mg/dL A fasting glucose of 126 mg/dl or greater on more than one occasion is considered diagnostic of diabetes. Calcium 8.4 8.4-10.2 mg/dL Bilirubin Total 0.7 0.0-1.0 mg/dL Aspartate Amino Transferase 35 5-37 U/L Alanine Aminotransferase 25 0-40 U/L Total Protein 6.3 6.5-8.0 g/dL Albumin Level 3.8 3.5-5.0 g/dL Alkaline Phosphatase 64 39-117 U/L Lipid Panel Reviewed date:02/09/2025 01:28:09 PM Interpretation: Performing Lab:[facility], [address] [place] [phone] Notes/Report: Triglycerides 122 <150 mg/dL Desirable Triglyceride: less than 150 mg/dL Borderline High Triglyceride 150-199 mg/dL High Triglyceride: 200-499 mg/dL Very High Triglyceride: greater than or equal to 5OO mg/dL Cholesterol 150 <200 mg/dL Desirable Cholesterol: less than 200 mg/dL Borderline High Cholesterol: 200-239 mg/dL High Cholesterol: greater than 239 mg/dL LDL Cholesterol Calculated 89 <100 mg/dL Desirable LDL: less than 100 mg/dL Near Optimal/Above Optimal LDL: 110-129 mg/dL Borderline High LDL: 130-159 mg/dL High LDL: 160-189 mg/dL Very High LDL: greater than or equal to 190 mg/dL HDL Cholesterol 37 >40 mg/dL Desirable HDL: greater than 40 mg/dL Note: This HDL assay may give artificially low results in patients with liver disease. PSA Free and Total Reviewed date:02/09/2025 01:28:09 PM Interpretation: Performing Lab:[facility], [address] [place] [phone] Notes/Report: Prostate Specific Ag Total 1.5 < OR = 4.0 ng/mL Percent Free Prostate Spec Ag 33 >25 % (calc) PSA(ng/mL) Free PSA(%) Estimated(x) Probability of Cancer(as%) 0-2.5 (*) Approx. 1 2.6-4.0(1) 0-27(2) 24(3) 4.1-10(4) 0-10 56 11-15 28 16-20 20 21-25 16 >or =26 8 >10(+) N/A >50 References:(1)Yi a et al.:Urology 60: 469-474 (2002) (2)Alba et al.:J.Urol 168: 922-925 (2002) Free PSA(%) Sensitivity(%) Specificity(%) < or = 25 85 19 < or = 30 93 9 (3)Catalona et al.:DEENA 277: 0592-8395 (1996) (4)Catalona et al.:DEENA 279: 6881-6231 (1997) (x)These estimates vary with age, ethnicity, family history and REGIS results. (*)The diagnostic usefulness of % Free PSA has not been established in patients with total PSA below 2.6 ng/mL (+)In men with PSA above 10 ng/mL, prostate cancer risk is determined by total PSA alone. The Total PSA value from this assay system is standardized against the equimolar PSA standard. The test result will be approximately 20% higher when compared to the WHO-standardized Total PSA (Siemens assay). Comparison of serial PSA results should be interpreted with this fact in mind. PSA was performed using the Justin Spicer Immunoassay method. Values obtained from different assay methods cannot be used interchangeably. PSA levels, regardless of value, should not be interpreted as absolute evidence of the presence or absence of disease. THIS TEST WAS PERFORMED AT: [facility] [address] [address] DEJAN CONWAY MD Free Prostate Spec Ag 0.5 INR WHOLE BLOOD POC Reviewed date:02/15/2025 08:16:17 PM Interpretation: Performing Lab:[address] [phone] Notes/Report: PT, INR - Anti Coag Clinic 2.4 0.9-1.1 METER #: [id number] INTERNATIONAL NORMALIZED RATIO (INR) REFERENCE RANGES Reference [...] Prothrombin Time Whole Bld P OC Reviewed date:02/15/2025 08:16:17 PM Interpretation: Performing Lab:[facility], [address] [place] [phone] Notes/Report: Prothrombin Time Whole Bld POC 28.9 11.1-13.5 sec Reason For Referral Reason Evaluate and Treat New Lesion of Nose Diagnosis 1 Lesion of nose (J34. 89) Referral Organization Jose Felder III, MD Referring Provider First Name Jose Referring Provider Last Name Bradford Referring Provider Speciality Internal edicine Referred Provider [facility] ([place] Referred Provider Specialty Dermatology General Notes Tamie You 10/18/2024 10:59:17 AM > Referral Faxed, Tamie You 01/18/2025 02:35:46 PM > Contacted patient regarding referral. Patient was left a message regarding, Rita Bhavanachantal OCAMPO 01/19/2025 10:13:49 AM >pt called back stated he already has been seen a few months ago and they took off the lesion Referral Priority Routine Reason Urgent Referral Requ est Evaluate and Treat Questioning injections in spine Back Pain Questioning if needs injections Diagnosis 1 Other chronic pain ( G89.29) Diagnosis 2 Back pain (M54.9) Referral Organization Jose Felder III, MD Referring Provider First Name Jose Referring Provider Last Name Bradford Referring Provider Speciality Internal [facility] Referred Provider [facility], Orthopedic Surgeons Referred Provider Specialty Orthopedic S urgery General Notes Tamie You 01/31/2025 01:54:41 PM > Referral and progress note faxed. Referral Priority Urgent Referral Appointment Date 05/19/2025 Reason eval and treat needs sleep study daytime somnolence Diagnosis 1 Daytime somnolence ( R40.0) Referral Organization Jose Felder III, MD Referring Provider First Name Jose Referring Provider Last Name Bradford [facility] Referred Provider [facility], Pulmonology Referred Provider Specialty Pulmonary Edna johnston General Notes Rita Bhavana [employer] OFFICER 02/10 09:06:58 AM > ref/demo/progress note/labs faxed to [facility] Referral Priority Routine Referral Appointment Date 03/16/2025 Medications Medication SIG (Take, Route, Frequency, Duration) [...] 1/2 tablet Orally Once a day Active Venlafaxine HCl 50 MG 1 tablet with food Orally Once a day 04/16/2023 Active traZODone HCl 50 MG TAKE 1 TABLET BY BRIANNE TH DAILY Active Losartan Potassium 25 MG as directed Ora lly Once a day Active Immunizations Vaccine Route [...] Problem Status W/U Status Risk Notes Problem [id number] Former smoker (Z87.891) Active confirmed He is highly motivated not to smoke and has a plan to prevent relapse in times of stress or illness. Problem [id number] Overweight (BMI 25.0-29.9) (E66.3) Active confirmed He has lost 5 pounds and is still overweight. We discussed diet and nutrition. We made a plan to lose weight at a rate of one half of a pound per week through a diet restricted in calories combined with physical activity. Problem [id number] Overweight (E66.3) Active confirmed He has gained 7 pounds. His body mass index is 27. We discussed his weight loss strategy. I recommended aggressive weight loss through regular physical activity and diet restricted in calories. Problem [id number] Hypertension (I10) Active confirmed His blood pressure is stable today. Problem 33159839 Other chronic pain (G89.29) Active confirmed Problem 704337134 Solitary pulmonary nodule (R91.1) Active confirmed Problem 175585771 Environmental allergies (Z91.09) Active confirmed He has noted itching around his eyes and nasal congestion. He is using zlww-plw-mmggj er medication. I recommended fluticasone and loratadine. 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 Problem 398443166 DVT (deep venous thrombosis) (I82.409) Active confirmed He has had no blood clots. Problem 428232388 Lung cancer (C34.90) Active confirmed He remains in remission with no relapse. He is no longer smoking. Problem Thoracic back pain (481649963) Thoracic back pain (M54.6) Active confirmed This is a new complaint. He notices it primarily playing golf. It is severe. X-rays have been ordered as well as a bone density test. 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 The protein S deficiency is no indication for lifelong therapy. Problem 70293470 Other depression (F32.89) Active confirmed His medication was increased to 100 mg daily. A follow-up visit was arranged. He has no suicidal ideation and is beginning to experience improvement. Problem 674479945 Benign prostatic hyperplasia, unspecified whether lower urinary tract symptoms present (N40.0) Active confirmed He reports rising from sleep about twice a night to urinate. We have discussed some lifestyle modifications he could make to reduce this nocturia. Problem 96781353 Chronic nonintractable headache, unspecified headache type (R51) Active confirmed His headaches are improved. They're less frequent. He will continue on current therapy. Problem Disease caused by Severe acute respiratory syndrome coronavirus 2 (disorder) (621544329) COVID-19 virus infection (U07.1) Active confirmed He has recovered from his collins virus infection with no lung symptoms. Problem [id number] Skin lesion of face (L98.9) Active confirmed The area on his nose has the appearance of an actinic keratosis. It has only recently appeared. I have made a referral to dermatology for definitive diagnosis and treatment. Problem 747896043 Recurrent low back pain (M54.50) Active confirmed He will use heat and rest acetaminophen and ibuprofen. He was referred back to pain management. Vital Signs Heart Rate 86 /min 02/24/2025 Temperature 98.3 degrees Fahrenheit 02/24/2025 Respiratory Rate 14 /min 02/09/2025 Oximetry 98 % 02/09/2025 Blood pressure diastolic 74 mm Hg 02/24/2025 Height 71 in 02/24/2025 Blood pressure systolic 119 mm Hg 02/24/2025 Weight 194 lbs 02/24/2025 BMI 27.05 kg/m2 02/24/2025 Encounters Encounter Location Date Provider Diagnosis Jose Felder III, MD [address] [place] [address] [address] [place] [address] 02/24/2025 Jose Felder Thoracic back pain M 54.6 and Cervical pain (neck) M54.2 Jose Felder III, MD [address] [place] [address] [address] [place] [address] 06/07/2024 Jose Felder 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 ; Hypertension I10 ; Overweight E66.3 ; Episodic memory loss R41.3 ; Former smoker Z87.891 and Lung cancer C34.90 Jose Felder III, MD [address] [place] [address] [address] [place] [address] 08/23/2024 Jose Felder COVID-19 virus infec tion U07.1 ; 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 ; Former smoker Z87.891 ; Lung cancer C34.90 ; Environmental allergies Z91.09 and Overweight E66.3 Jose Felder III, MD [address] [place] [address] [address] [place] [address] 10/04/2024 Jose Felder COVID-19 virus infec tion [...] and Overweight E66.3 Jose Felder III, MD [address] [place] [address] [address] [place] [address] 10/15/2024 Jose Felder Skin lesion of face L98.9 ; 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 ; Former smoker Z87.891 ; Lung cancer C34.90 ; Environmental allergies Z91.09 ; Hypertension I10 ; DVT (deep venous thrombosis) I82.409 ; Overweight (BMI 25.0-29.9) E66.3 ; Chronic nonintractable headache, unspecified headache type R51 ; 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 and Other depression F32.89 Jose Felder III, MD [address] [place] [address] [place] [address] 01/27/2025 Jose Felder 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 ; Recurrent low back pain M54.50 ; Former smoker Z87.891 ; Lung cancer C34.90 ; Environmental allergies Z91.09 ; Chronic nonintractable headache, unspecified headache type R51 ; Overweight E66.3 and Benign prostatic hyperplasia, unspecified whether lower urinary tract symptoms present N40.0 Jose Felder III, MD [address] [place] [address] [address] [place] [address] 02/09/2025 Jose Felder Suspected sleep apne a R29.818 ; Labyrinthitis of both ears H83.03 ; 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 ; Lung cancer C34.90 ; Overweight (BMI 25.0-29.9) E66.3 ; DVT (deep venous thrombosis) I82.409 ; Hypertension I10 ; 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 ; Benign prostatic hyperplasia, unspecified whether lower urinary tract symptoms present N40.0 and Former smoker Z87.891 Jose Felder III, MD [address] [place] [address] [address] [place] [address] 02/16/2025 Jose Felder Thoracic back pain M 54.6 ; Former smoker Z87.891 ; Lung cancer C34.90 ; Environmental allergies Z91.09 ; Overweight (BMI 25.0-29.9) E66.3 ; 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 ; Other depression F32.89 and Benign prostatic hyperplasia, unspecified whether lower urinary tract symptoms present N40.0 Jose Felder III, MD [address] [place] [address] [place] [address] 03/15/2024 Jose Felder III, MD [address] [place] [address] [place] [address] 08/23/2024 Jose Felder III, MD [address] [place] [address] [place] [address] 08/31/2024 Jose Felder COVID-19 virus infec tion U07.1 Jose Felder III, MD [address] [place] [address] [place] [address] 08/31/2024 Jose Felder COVID-19 virus infec tion U07.1 Jose Felder III, MD [address] [place] [address] [place] [address] 09/17/2024 Jsoe Felder III, MD [address] [place] [address] [place] [address] 02/08/2025 Jose Felder Assessments Encounter Date Diagnosis (ICD Code) Assessment Notes Treat ment Notes Treatment Clinical Notes 02/24/2025 Thoracic back pain (ICD-10 - M54.6) 06/07/2024 Hypertension (ICD-10 - I10) His blood [...] to dermatology for definitive diagnosis and treatment. 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 01/27/2025 Recurrent low back pain (ICD-10 - M54.50) He will use heat and rest acetaminophen and ibuprofen. He was referred back to pain management. 02/09/2025 Labyrinthitis of bot h ears (ICD-10 - H83.03) The description of his dizziness is most consistent with bilateral labyrinthitis. I have explained this to him and given him meclizine. Examination of the ears was unremarkable. It is episodic was not present during today's examination. Manipulation of his head and changing of his physician today did not reproduce his symptoms. 02/09/2025 Suspected sleep apne a (ICD-10 - R29.818) I have ordered a sleep study to see if he has sleep apnea that would explain the sudden episodes of daytime somnolence. I have instructed him not to drive an automobile or operate heavy machinery. 02/16/2025 Former smoker (ICD-1 0 - Z87.891) He is highly motivated not to smoke and has a plan to prevent relapse in times of stress or illness. 02/16/2025 Thoracic back pain (ICD-10 - M54.6) This is a new complaint. He notices it primarily playing golf. It is severe. X-rays have been ordered as well as a bone density test. 08/31/2024 COVID-19 virus infection (ICD-10 - U07.1) I have prescribed Paxlovid And arrange followup telephone calls every 48 hours. He seems stable at this time. 08/31/2024 COVID-19 virus infection (ICD-10 - U07.1) I have prescribed Paxlovid And arrange followup telephone calls every 48 hours. He seems stable at this time. 02/24/2025 Cervical pain (neck) (ICD-10 - M54.2) 06/07/2024 Overweight (ICD-10 - E66.3) He has [...] in times of stress or illness. 01/27/2025 Former smoker (ICD-1 0 - Z87.891) He is highly motivated not to smoke and has a plan to prevent relapse in times of stress or illness. 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 02/16/2025 Lung cancer (ICD-10 - C34.90) He remains in remission with no relapse. He is no longer smoking. 06/07/2024 Episodic memory loss (ICD-10 - R41.3) [...] relapse. He is no longer smoking. 01/27/2025 Lung cancer (ICD-10 - C34.90) He remains in remission with no relapse. He is no longer smoking. 02/09/2025 Lung cancer (ICD-10 - C34.90) He remains in remission with no relapse. He is no longer smoking. 02/16/2025 Environmental allergies (ICD-10 - Z91.09) He has noted itching around his eyes and nasal congestion. He is using tsjv-kkc-fjqwoho medication. I recommended fluticasone and loratadine. 06/07/2024 Former smoker (ICD-1 0 - Z87.891) He is highly motivated not to smoke and has a plan to prevent relapse in times of stress or illness. 08/23/2024 Environmental allergies (ICD-10 - Z91.09) He has noted itching around his eyes and nasal congestion. He is using mvhk-jba-spjwxki medication. I recommended fluticasone and loratadine. 10/04/2024 Former smoker (ICD-1 0 - Z87.891) He is highly motivated not to smoke and has a plan to prevent relapse in times of stress or illness. 10/15/2024 Environmental allergies (ICD-10 - Z91.09) He has noted itching around his eyes and nasal congestion. He is using kjyy-gun-ijlhamp medication. I recommended fluticasone and loratadine. 01/27/2025 Environmental allergies (ICD-10 - Z91.09) He has noted itching around his eyes and nasal congestion. He is using rhvz-xzw-tmsiuch medication. I recommended fluticasone and loratadine. 02/09/2025 Overweight (BMI 25.0-29.9) (ICD-10 - E66.3) He has lost 5 pounds and is still overweight. We discussed diet and nutrition. We made a plan to lose weight at a rate of one half of a pound per week through a diet restricted in calories combined with physical activity. 02/16/2025 Overweight (BMI 25.0-29.9) (ICD-10 - E66.3) He has lost 5 pounds and is still overweight. We discussed diet and nutrition. We made a plan to lose weight at a rate of one half of a pound per week through a diet restricted in calories combined with physical activity. 06/07/2024 Lung cancer (ICD-10 - C34.90) He [...] I10) His blood pressure is stable today. 01/27/2025 Chronic nonintractable headache, unspecified headache type (ICD-10 - R51) His headaches are improved. They're less frequent. He will continue on current therapy. 02/09/2025 DVT (deep venous thrombosis) (ICD-10 - I82.409) He has had no blood clots. 02/16/2025 Protein S deficiency (ICD-10 - D68.59) He is doing well with his chronic anticoagulation. The protein S deficiency is no indication for lifelong therapy. 10/04/2024 Environmental allergies (ICD-10 - Z91.09) He has noted itching around his eyes and nasal congestion. He is using jkdh-ndg-wxaksgl medication. I recommended fluticasone and loratadine. 10/15/2024 DVT (deep venous thrombosis) (ICD-10 - I82.409) He has had no blood clots. 01/27/2025 Overweight (ICD-10 - E66.3) He has gained 7 pounds. His body mass index is 27. We discussed his weight loss strategy. I recommended aggressive weight loss through regular physical activity and diet restricted in calories. 02/09/2025 Hypertension (ICD-10 - I10) His blood pressure is stable today. 02/16/2025 Other depression (ICD-10 - F32.89) His medication was increased to 100 mg daily. A follow-up visit was arranged. He has no suicidal ideation and is beginning to experience improvement. 10/04/2024 Overweight (BMI 25.0-29.9) (ICD-10 - E66.3) [...] restricted in calories combined with physical activity. 01/27/2025 Benign prostatic hyperplasia, unspecified whether lower urinary tract symptoms present (ICD-10 - N40.0) He reports rising from sleep about twice a night to urinate. We have discussed some lifestyle modifications he could make to reduce this nocturia. 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 The protein S deficiency is no indication for lifelong therapy. 02/16/2025 Benign prostatic hyperplasia, unspecified whether lower urinary tract symptoms present (ICD-10 - N40.0) He reports rising from sleep about twice a night to urinate. We have discussed some lifestyle modifications he could make to reduce this nocturia. 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 The protein S deficiency is no indication for lifelong therapy. 10/15/2024 Chronic nonintractable headache, unspecified headache type (ICD-10 - R51) His headaches are improved. They're less frequent. He will continue on current therapy. 02/09/2025 Benign prostatic hyperplasia, unspecified whether lower urinary tract symptoms present (ICD-10 - N40.0) He reports rising from sleep about twice a night to urinate. We have discussed some lifestyle modifications he could make to reduce this nocturia. 10/04/2024 Other depression (ICD-10 - F32.89) His medication was increased to 100 mg daily. A follow-up visit was arranged. He has no suicidal ideation and is beginning to experience improvement. 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 The protein S deficiency is no indication for lifelong therapy. 02/09/2025 Former smoker (ICD-1 0 - Z87.891) He is highly motivated not to smoke and has a plan to prevent relapse in times of stress or illness. 10/04/2024 Overweight (ICD-10 - E66.3) He has [...] Order Date PROFILE, FASTING (COMPREHENSIVE METABOLI C) 01/25/2020 PROFILE, FASTING (COMPREHENSIVE METABOLI C) 07/11/2021 PROFILE, FASTING (COMPREHENSIVE METABOLI C) 06/19/2022 PROFILE, FASTING (COMPREHENSIVE METABOLI C) 06/18/2023 PROFILE, FASTING (COMPREHENSIVE METABOLI C) 06/07/2024 PROFILE, FASTING (COMPREHENSIVE METABOLI C) 02/26/2021 PROFILE, FASTING (COMPREHENSIVE METABOLI C) 12/09/2022 PROFILE, FASTING (COMPREHENSIVE METABOLI C) 11/18/2019 PROFILE, FASTING (COMPREHENSIVE METABOLI C) 01/27/2024 PROFILE, FASTING (COMPREHENSIVE METABOLI C) 01/27/2025 PROFILE, FASTING (COMPREHENSIVE METABOLI C) 09/30/2023 PROFILE, FASTING (COMPREHENSIVE METABOLI C) 10/04/2024 PROFILE, FASTING (COMPREHENSIVE METABOLI C) 11/09/2021 PROFILE, RANDOM (COMPREHENSIVE METABOLIC ) 08/12/2022 PROFILE, RANDOM (COMPREHENSIVE METABOLIC ) 08/19/2019 PROFILE, RANDOM (COMPREHENSIVE METABOLIC ) 07/06/2018 PROFILE, RANDOM (COMPREHENSIVE METABOLIC ) 10/14/2018 PROFILE, RANDOM (COMPREHENSIVE METABOLIC ) 05/08/2017 PROFILE, RANDOM (COMPREHENSIVE METABOLIC ) 10/30/2020 HEMOGLOBIN A1C (GLYCOHEMOGLOBIN) 020 AMYLASE 03/26/2022 LIPASE 03/26/2022 LIPID PANEL 10/30/2020 LIPID PANEL 11/09/2021 LIPID PANEL 08/12/2022 LIPID PANEL 08/19/2019 LIPID PANEL 06/19/2022 LIPID PANEL 01/25/2020 LIPID PANEL 02/26/2021 LIPID PANEL 12/09/2022 LIPID PANEL 11/18/2019 PSA, TOTAL 09/30/2023 PSA, TOTAL 10/04/2024 PSA, TOTAL 07/11/2021 PSA, TOTAL 06/19/2022 PSA, TOTAL 01/27/2024 PSA, TOTAL 12/09/2022 PSA, TOTAL+FREE 02/26/2021 CBC w DIFF 02/26/2021 CBC w DIFF [...] CBC w DIFF 05/08/2017 CBC w DIFF 01/27/2025 CBC w DIFF 11/18/2019 SED RATE (ESR) 03/26/2022 CT THORACIC SPINE NO CONTRAST 02/24/2025 BONE DENSITY DEXA 02/16/2025 CBC WITH AUTO DIFF 01/27/2024 CBC WITH AUTO DIFF 06/18/2023 Lipid Panel 01/27/2025 Lipid Panel 01/27/2024 Lipid Panel 09/30/2023 Lipid Panel 02/16/2025 Lipid Panel 10/04/2024 Lipid Panel 06/18/2023 Lipid Panel 06/07/2024 Lipid Panel 07/11/2021 Amylase 02/16/2025 PSA Free and Total 01/27/2025 CT cervical spine wo con 02/24/2025 XR thoracic spine 3V 02/16/2025 Next Appt Details Provider Name:Jose Felder, 03/10/2025 09:30:00 AM, [address] [facility] [place], [place], [address], Provider Name:Jose Felder, 10/05/2025 02:30:00 PM, [address] [facility] [place], [place], [address], Insurance Providers Payer Name Payer Address Payer Phone Subscriber Number Group Number Insured Name Patient Relationship to Insured Coverage Start Date Coverage End Date [employer] [address] [place], [place] [id number] [phone] [id number] Jem Gallardo Self - patient is the insured 4 MEDICARE NGS [address] [place] [phone] [id number] Jem Gallardo Self - patient is the insured Medical (General) History Medical History History ICD Code migraine headaches allergies hypertension 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
[2025-02-25 08:30] LABS: Prothrombin Time Whole Bld POC 35.4 sec (11.1-13.5); ~PT, ~INR - Anti Coag Clinic 2.9 (0.9-1.1)
--- NOTE | 2025-02-25 08:38 | MHC.OFFVISCO ---
Intake Intake Visit Reasons: Anticoagulation Allergies Seasonal Allergies Allergy (Intermediate, Verified 02/25/25 08:25) Cough venlafaxine Adverse Reaction (Intermediate, Verified 02/25/25 08:25) Headache Medication List - Last Reconciled 02/25/25 by Razia López, RN losartan 25 mg PO DAILY simvastatin 40 mg PO DAILY sumatriptan succinate 100 mg PO PRN vitamin B complex PO [VITAMIN D 3 PO] warfarin 5 mg See Protocol PO DAILY Nursing Note INR: 2.9 in therapeutic range of 2-3 Medications and supplements reviewed No changes in health, diet, medications, or supplements, Denies any signs and symptoms of bleeding or bruising or clotting. 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
== END 2025-02-25 08:41 | disposition home or self-care (01) ==
LOC: HO.ACS 08:17
PROVIDERS: PCP Internal Medicine Medical Oncology; Visit Provider Internal Medicine Medical Oncology
DX: Z79.01 Long term (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 (principal)

== ENCOUNTER → 2025-02-25 08:17 | Outpatient (BNVA) | payer MEDICARE, SELFPAY | PROVIDERS: PCP Internal Medicine Medical Oncology; Visit Provider Internal Medicine Medical Oncology | DX: Z86.718 Personal history of other venous thrombosis and embolism (principal); Z79.01 Long term (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; Z51.81 Encounter for therapeutic drug level monitoring | CPT/HCPCS: 85610; 99211 ==

== ENCOUNTER 2025-03-05 08:47 | Outpatient (REF) | payer MEDICARE, SELFPAY ==
--- NOTE | ~2025-03-05 | CT_ITS ---
CLINICAL HISTORY: thoracic back pain CT thoracic spine without contrast Comparison: CR/SR - XR THORACIC SPINE 3 VIEWS - 02/16/25 10:49 EDT Findings: Vertebral alignment is within normal limits. No acute fractures or dislocations. Multilevel disc space narrowing and endplate osteophyte formation, as well as facet hypertrophy. Moderate airspace opacity within the right upper lobe medially, suggestive of scarring. Lower cervical fusion hardware. Normal upper abdominal contents. IMPRESSION: No acute findings. This document has been electronically signed by: Mandi Moe MD on 03/07/2025 19:14:10
--- NOTE | ~2025-03-05 | CT_ITS ---
CLINICAL HISTORY: cervical pain CT cervical spine without contrast Comparison: None provided Findings: Vertebral alignment is within normal limits. Multilevel disc space narrowing and endplate osteophyte formation, as well as facet hypertrophy. Anterior fusion hardware at C5-C7. No acute fractures or dislocations. Visualized intracranial contents are unremarkable. No cervical fluid collections or masses. No consolidation or effusion at the lung apices. IMPRESSION: No acute findings. This document has been electronically signed by: Mandi Moe MD on 03/07/2025 18:56:26
--- OUTSIDE RECORDS SUMMARY | 2025-03-05 08:50 | XMS_ITS | Patient Health Record ---
Author Organization [facility] Address [address] [place] [address] Care Team Providers Care Cook House Supervisor Name Role Phone Jose Felder MD Primary Care Provider Unavailab Sharath Hopson Unavailable [phone] Allergies Allergen (clinical drug ingredient) Drug/Non Drug [...] Date X ray : Foot, left 3V 06/28/[id number] TENDON SHEATH/LIGAMENT 0 09/08/[id number] TENDON SHEATH/LIGAMENT 0 01/11/2014,[id number] TENDON SHEATH/LIGAMENT 0 10/12/2019 Insurance Providers Payer Name Payer Address Payer Phone Subscriber Number Group Number Insured Name Patient Relationship to Insured Coverage Start Date Coverage End Date [employer] [address] [place] [address] [id number] Jem Gallardo Self - patient is the insured [employer] [place] [address] [place] [phone] [id number] Jem Gallardo Self - patient is the [...]
--- OUTSIDE RECORDS SUMMARY | 2025-03-05 08:50 | XMS_ITS | Patient Health Record ---
Author Organization Jose Felder III, MD Address [address] [place] [address] Care Team Providers Care Lead Slot Technician Name Role Phone Jose Felder Primary Care Provider [phone] Allergies Allergen (clinical drug ingredient) Drug/Non Drug [...] 1.3 BLD 5-10 Negative - Lipid Panel Reviewed date:02/25/2025 01:03:25 PM Interpretation: Performing Lab:[facility], [address] [place] [address] Notes/Report: Triglycerides 73 <150 mg/dL Desirable Triglyceride: [...] Amylase Reviewed date:02/25/2025 01:03:25 PM Interpretation: Performing Lab:[facility], [address] [place] [address] Notes/Report: Amylase 57 28-100 U/L XR thoracic spine 3V Reviewed date:02/25/2025 01:03:25 PM Interpretation: Performing Lab: Notes/Report: [address] [address] XRay Report Signed Patient: Jem Gallardo MR#: [id number] 3 : 1945 Acct:[id number] Age/Sex: 79 / M ADM Date: 02/16/25 Loc: HO.LAB Attending Dr: Jose Felder MD Ordering Physician: Jose Felder MD Date of Service: 02/16/25 Procedure(s): XR thoracic spine 3V Accession Number(s): [id number] cc: Jose Felder MD EXAMINATION: XR THORACIC [...] 02/16/25 1056 DD/ 1045 TD/TT: 02/16/25 1051 Steel Rule Inspector: [address] [address] XRay Report Signed Patient: Jem Gallardo MR#: [id number] 3 : 1945 Acct:[id number] Age/Sex: 79 / M ADM Date: 02/16/25 Loc: HO.LAB Attending Dr: Jose Felder MD Ordering Physician: Jose Felder MD Date of Service: 02/16/25 Procedure(s): XR thoracic spine 3V Accession Number(s): [id number] cc: Jose Felder MD EXAMINATION: XR THORACIC [...] 02/16/2025 10:56 AM EDT Dictated By: Last Jose MD Signed By: <Electronically signed by Last Turner MD in OV> 02/16/25 1056 DD/ 1045 TD/TT: 02/16/25 1051 Steel Rule Inspector: INR WHOLE BLOOD POC Reviewed date:03/21/2024 06:44:39 AM Interpretation: Performing Lab:[facility], [address] [place] [phone] Notes/Report: PT, INR - [facility] 1.7 0.9-1.1 METER #: [id number] INTERNATIONAL NORMALIZED RATIO (INR) REFERENCE RANGES Reference [...] OC Reviewed date:03/21/2024 06:44:39 AM Interpretation: Performing Lab:[facility], [address] [place] [phone] Notes/Report: Prothrombin Time Whole Bld POC 20.4 11.1-13.[address] head/brain wo con Reviewed date:03/21/2024 06:44:39 AM Interpretation: Performing Lab: Notes/Report: [address] [address] [address] Scan Report Signed Patient: Jem Gallardo MR#: [id number] 3 : 1945 Acct:[id number] Age/Sex: 79 / M ADM Date: 03/15/24 Loc: HO.ED Attending Dr: Ordering Physician: Lynne Fields Date of Service: 03/15/24 Procedure(s): CT head/brain wo IV con Accession Number(s): [id number] cc: Jose Felder MD; Lynne Fields EXAMINATION: [...] in OV> 03/15/24 1601 DD/ 1227 TD/TT: Steel Rule Inspector: [place] [address] CT Scan Report Signed Patient: Jem Gallardo MR#: [id number] 3 : 1945 Acct:[id number] Age/Sex: 79 / M ADM Date: 03/15/24 Loc: HO.ED Attending Dr: Ordering Physician: Lynne Fields Date of Service: 03/15/24 Procedure(s): CT head/brain wo IV con Accession Number(s): [id number] cc: Jose Felder MD; Lynne Fields EXAMINATION: [...] in OV> 03/15/24 1601 DD/ 1227 TD/TT: Steel Rule Inspector: INR WHOLE BLOOD POC Reviewed date:03/25/2024 08:29:44 PM Interpretation: Performing Lab:[facility], [address] [place] [address] Notes/Report: PT, INR - Anti [facility]ag Clinic 2.1 0.9-1.1 METER #: [id number] INTERNATIONAL NORMALIZED RATIO (INR) REFERENCE RANGES Reference [...] OC Reviewed date:03/25/2024 08:29:44 PM Interpretation: Performing Lab:[facility], [address] [place] [phone] Notes/Report: Prothrombin Time Whole Bld POC 25.8 11.1-13.5 sec INR WHOLE BLOOD POC Reviewed date:04/21/2024 06:39:37 AM Interpretation: Performing Lab:[facility], [address] [place] [address] Notes/Report: PT, INR - [facility] 1.9 0.9-1.1 METER #: [id number] INTERNATIONAL NORMALIZED RATIO (INR) REFERENCE RANGES Reference [...] OC Reviewed date:04/21/2024 06:39:38 AM Interpretation: Performing Lab:[address] [address] Notes/Report: Prothrombin Time Whole Bld POC 22.2 11.1-13.5 sec INR WHOLE BLOOD POC Reviewed date:05/18/2024 11:38:32 AM Interpretation: Performing Lab:[facility], [address] [place] [phone] Notes/Report: PT, INR - Anti [facility]ag Clinic 2.1 0.9-1.1 METER #: [id number] INTERNATIONAL NORMALIZED RATIO (INR) REFERENCE RANGES Reference [...] OC Reviewed date:05/18/2024 11:38:32 AM Interpretation: Performing Lab:[address] [phone] Notes/Report: Prothrombin Time Whole Bld POC 25.7 11.1-13.5 sec Complete Blood Count Auto Di ff Reviewed date:06/07/2024 11:48:38 AM Interpretation: Performing Lab:[address] [phone] Notes/Report: White Blood Count 9.5 4.8-10.8 X10*3/uL [...] NRBC Abs Auto 0.000 0.0-0.012 X10*3/uL Comprehensive [place]. Panel Fa st Reviewed date:06/07/2024 11:48:38 AM Interpretation: Performing Lab:[facility], [address] [place] [address] Notes/Report: Sodium 144 135-145 mmol/L Potassium 4.7 3.3-5.1 mmol/L Chloride 108 96-108 mmol/L Carbon Dioxide 27 22-29 mmol/L Anion Gap 14 12-20 Blood Urea Nitrogen 20 9-16 mg/dL Creatinine 0.79 0.5-1.4 mg/dL Estimated Glomerular Filt Rate > 60 NOTE: For -[place]ren[place] individuals, multiply the result by 1.210. Chronic [...] Panel Reviewed date:06/07/2024 11:48:38 AM Interpretation: Performing Lab:[facility], [address] [place] [phone] Notes/Report: Triglycerides 66 <150 mg/dL Desirable Triglyceride: [...] Antigen Reviewed date:06/07/2024 11:48:38 AM Interpretation: Performing Lab:[address] [phone] Notes/Report: Prostate Specific Antigen 1.23 <0.05-4.0 ng/mL PSA methodology: Sheets Alinity i Chemiluminescent Microparticle Immunoassay (CMIA) INR WHOLE BLOOD POC Reviewed date:06/15/2024 08:32:55 AM Interpretation: Performing Lab:[address] [address] Notes/Report: PT, INR - Anti [facility]ag Clinic 2.0 0.9-1.1 METER #: [id number] INTERNATIONAL NORMALIZED RATIO (INR) REFERENCE RANGES Reference [...] OC Reviewed date:06/15/2024 08:32:55 AM Interpretation: Performing Lab:[facility], [address] [place] [phone] Notes/Report: Prothrombin Time Whole Bld POC 24.4 11.1-13.5 sec INR WHOLE BLOOD POC Reviewed date:07/16/2024 08:35:52 AM Interpretation: Performing Lab:[facility], [address] [place] [phone] Notes/Report: PT, INR - Anti [facility]ag Clinic 1.6 0.9-1.1 METER #: [id number] INTERNATIONAL NORMALIZED RATIO (INR) REFERENCE RANGES Reference [...] OC Reviewed date:07/16/2024 08:35:52 AM Interpretation: Performing Lab:[facility], [address] [place] [phone] Notes/Report: Prothrombin Time Whole Bld POC 19.4 11.1-13.5 sec INR WHOLE BLOOD POC Reviewed date:07/23/2024 09:07:49 PM Interpretation: Performing Lab:[facility], [address] [place] [phone] Notes/Report: PT, INR - [facility]ag [facility] 1.8 0.9-1.1 METER #: [id number] INTERNATIONAL NORMALIZED RATIO (INR) REFERENCE RANGES Reference [...] OC Reviewed date:07/23/2024 09:07:49 PM Interpretation: Performing Lab:[facility], [address] [place] [phone] Notes/Report: Prothrombin Time Whole Bld POC 21.4 11.1-13.5 sec INR WHOLE BLOOD POC Reviewed date:08/06/2024 08:49:39 PM Interpretation: Performing Lab:[facility], [address] [place] [phone] Notes/Report: PT, INR - Anti Coag Clinic 2.1 0.9-1.1 METER #: [id number] INTERNATIONAL NORMALIZED RATIO (INR) REFERENCE RANGES Reference [...] OC Reviewed date:08/06/2024 08:49:39 PM Interpretation: Performing Lab:[facility], [address] [place] [phone] Notes/Report: Prothrombin Time Whole Bld POC 25.3 11.1-13.5 sec INR WHOLE BLOOD POC Reviewed date:09/02/2024 06:23:24 AM Interpretation: Performing Lab:[facility], [address] [place] [address] Notes/Report: PT, INR - Anti [facility]ag Clinic 1.6 0.9-1.1 METER #: [id number] INTERNATIONAL NORMALIZED RATIO (INR) REFERENCE RANGES Reference [...] OC Reviewed date:09/02/2024 06:23:24 AM Interpretation: Performing Lab:[facility], [address] [place] [phone] Notes/Report: Prothrombin Time Whole Bld POC 18.8 11.1-13.5 sec INR WHOLE BLOOD POC Reviewed date:09/05/2024 08:45:11 AM Interpretation: Performing Lab:[facility], [address] [place] [phone] Notes/Report: PT, INR - Anti [facility]ag Clinic 2.0 0.9-1.1 METER #: [id number] INTERNATIONAL NORMALIZED RATIO (INR) REFERENCE RANGES Reference [...] OC Reviewed date:09/05/2024 08:45:11 AM Interpretation: Performing Lab:[facility], [address] [place] [phone] Notes/Report: Prothrombin Time Whole Bld POC 24.2 11.1-13.5 sec INR WHOLE BLOOD POC Reviewed date:09/19/2024 09:54:44 AM Interpretation: Performing Lab:[facility], [address] [place] [phone] Notes/Report: PT, INR - Anti Coag Clinic 2.6 0.9-1.1 METER #: [id number] INTERNATIONAL NORMALIZED RATIO (INR) REFERENCE RANGES Reference [...] OC Reviewed date:09/19/2024 09:54:44 AM Interpretation: Performing Lab:[facility], [address] [place] [phone] Notes/Report: Prothrombin Time Whole Bld POC 31.6 11.1-13.5 sec INR WHOLE BLOOD POC Reviewed date:09/24/2024 11:58:00 AM Interpretation: Performing Lab:[facility], [address] [place] [phone] Notes/Report: PT, INR - Anti Coag Clinic 1.8 0.9-1.1 METER #: [id number] INTERNATIONAL NORMALIZED RATIO (INR) REFERENCE RANGES Reference [...] OC Reviewed date:09/24/2024 11:58:00 AM Interpretation: Performing Lab:[facility], [address] [place] [phone] Notes/Report: Prothrombin Time Whole Bld POC 21.8 11.1-13.5 sec Complete Blood Count Auto Di ff Reviewed date:10/04/2024 11:26:43 AM Interpretation: Performing Lab:[address] [address] Notes/Report: White Blood Count 10.5 4.8-10.8 X10*3/uL [...] NRBC Abs Auto 0.000 0.0-0.012 X10*3/uL Comprehensive [place]. Panel Fa st Reviewed date:10/04/2024 11:26:43 AM Interpretation: Performing Lab:[address] [address] Notes/Report: Sodium 144 135-145 mmol/L Potassium 4.6 [...] Panel Reviewed date:10/04/2024 11:26:43 AM Interpretation: Performing Lab:[address], [place] [address] Notes/Report: Triglycerides 81 <150 mg/dL Desirable Triglyceride: [...] POC Reviewed date:10/04/2024 11:26:43 AM Interpretation: Performing Lab:[facility], [address] [place] [phone] Notes/Report: PT, INR - Anti Coag Clinic 2.0 0.9-1.1 METER #: [id number] INTERNATIONAL NORMALIZED RATIO (INR) REFERENCE RANGES Reference [...] OC Reviewed date:10/04/2024 11:26:43 AM Interpretation: Performing Lab:[facility], [address] [place] [phone] Notes/Report: Prothrombin Time Whole Bld POC 23.8 11.1-13.5 sec INR WHOLE BLOOD POC Reviewed date:10/19/2024 12:18:43 PM Interpretation: Performing Lab:[facility], [address] [place] [phone] Notes/Report: PT, INR - Anti [facility]ag Clinic 1.7 0.9-1.1 METER #: [id number] INTERNATIONAL NORMALIZED RATIO (INR) REFERENCE RANGES Reference [...] OC Reviewed date:10/19/2024 12:18:43 PM Interpretation: Performing Lab:[facility], [address] [place] [phone] Notes/Report: Prothrombin Time Whole Bld POC 20.9 11.1-13.5 sec INR WHOLE BLOOD POC Reviewed date:10/30/2024 07:56:40 AM Interpretation: Performing Lab:[facility], [address] [place] [phone] Notes/Report: PT, INR - Anti [facility]ag Clinic 2.5 0.9-1.1 METER #: [id number] INTERNATIONAL NORMALIZED RATIO (INR) REFERENCE RANGES Reference [...] OC Reviewed date:10/30/2024 07:56:40 AM Interpretation: Performing Lab:[facility], [address] [place] [phone] Notes/Report: Prothrombin Time Whole Bld POC 30.4 11.1-13.5 sec INR WHOLE BLOOD POC Reviewed date:11/12/2024 08:31:52 PM Interpretation: Performing Lab:[facility], [address] [place] [address] Notes/Report: PT, INR - Anti [facility]ag Clinic 2.0 0.9-1.1 METER #: [id number] INTERNATIONAL NORMALIZED RATIO (INR) REFERENCE RANGES Reference [...] OC Reviewed date:11/12/2024 08:31:52 PM Interpretation: Performing Lab:[facility], [address] [place] [phone] Notes/Report: Prothrombin Time Whole Bld POC 24.5 11.1-13.5 sec INR WHOLE BLOOD POC Reviewed date:12/01/2024 07:02:07 AM Interpretation: Performing Lab:[facility], [address] [place] [phone] Notes/Report: PT, INR - Anti [facility]ag Clinic 1.8 0.9-1.1 METER #: [id number] INTERNATIONAL NORMALIZED RATIO (INR) REFERENCE RANGES Reference [...] OC Reviewed date:12/01/2024 07:02:07 AM Interpretation: Performing Lab:[facility], [address] [place] [phone] Notes/Report: Prothrombin Time Whole Bld POC 21.1 11.1-13.5 sec INR WHOLE BLOOD POC Reviewed date:12/14/2024 10:11:09 AM Interpretation: Performing Lab:[facility], [address] [place] [phone] Notes/Report: PT, INR - Anti Coag Clinic 2.0 0.9-1.1 METER #: [id number] INTERNATIONAL NORMALIZED RATIO (INR) REFERENCE RANGES Reference [...] OC Reviewed date:12/14/2024 10:11:09 AM Interpretation: Performing Lab:[facility], [address] [place] [phone] Notes/Report: Prothrombin Time Whole Bld POC 24.1 11.1-13.5 sec INR WHOLE BLOOD POC Reviewed date:12/28/2024 09:33:50 AM Interpretation: Performing Lab:[facility], [address] [place] [phone] Notes/Report: PT, INR - Anti Coag Clinic 2.7 0.9-1.1 METER #: [id number] INTERNATIONAL NORMALIZED RATIO (INR) REFERENCE RANGES Reference [...] OC Reviewed date:12/28/2024 09:33:50 AM Interpretation: Performing Lab:[facility], [address] [place] [phone] Notes/Report: Prothrombin Time Whole Bld POC 32.7 11.1-13.5 sec INR WHOLE BLOOD POC Reviewed date:01/19/2025 01:54:32 PM Interpretation: Performing Lab:[facility], [address] [place] [phone] Notes/Report: PT, INR - Anti Coag Clinic 1.6 0.9-1.1 METER #: [id number] INTERNATIONAL NORMALIZED RATIO (INR) REFERENCE RANGES Reference [...] OC Reviewed date:01/19/2025 01:54:32 PM Interpretation: Performing Lab:[facility], [address] [place] [phone] Notes/Report: Prothrombin Time Whole Bld POC 18.9 11.1-13.5 sec INR WHOLE BLOOD POC Reviewed date:02/02/2025 03:50:50 PM Interpretation: Performing Lab:[facility], [address] [place] [phone] Notes/Report: PT, INR - Anti Coag Clinic 1.9 0.9-1.1 METER #: [id number] INTERNATIONAL NORMALIZED RATIO (INR) REFERENCE RANGES Reference [...] OC Reviewed date:02/02/2025 03:50:50 PM Interpretation: Performing Lab:[facility], [address] [place] [phone] Notes/Report: Prothrombin Time Whole Bld POC 22.4 11.1-13.5 sec Complete Blood Count Auto Di ff Reviewed date:02/09/2025 01:28:09 PM Interpretation: Performing Lab:[facility], [address] [place] [phone] Notes/Report: White Blood Count 10.3 4.8-10.8 X10*3/uL [...] NRBC Abs Auto 0.000 0.0-0.012 X10*3/uL Comprehensive [place]. Panel Fa st Reviewed date:02/09/2025 01:28:09 PM Interpretation: Performing Lab:[facility], [address] [place] [phone] Notes/Report: Sodium 142 135-145 mmol/L Potassium 3.8 [...] Panel Reviewed date:02/09/2025 01:28:09 PM Interpretation: Performing Lab:[address] [phone] Notes/Report: Triglycerides 122 <150 mg/dL Desirable Triglyceride: [...] Total Reviewed date:02/09/2025 01:28:09 PM Interpretation: Performing Lab:[address] [address] Notes/Report: Prostate Specific Ag Total 1.5 < OR = 4.0 ng/mL Percent Free Prostate Spec Ag 33 >25 % (calc) PSA(ng/mL) Free PSA(%) Estimated(x) Probability of Cancer(as%) 0-2.5 (*) Approx. 1 2.6-4.0(1) 0-27(2) 24(3) 4.1-10(4) 0-10 56 11-15 28 16-20 20 21-25 16 >or =26 8 >10(+) N/A >50 References:(1)Yi a et al.:Urology 60: 469-474 (2002) (2)Alba et al.:J.Urol 168: 922-925 (2001) Free PSA(%) Sensitivity(%) Specificity(%) < or = 25 85 19 < or = 30 93 9 (3)Catalona et al.:DEENA 277: 1636-9488 (1996) (4)Catalona et al.:DEENA 279: 3702-6668 (1997) (x)These estimates vary with age, ethnicity, [...] mind. PSA was performed using the Justin [place] Immunoassay method. Values obtained from different assay methods cannot be used interchangeably. PSA levels, regardless of value, should not be interpreted as absolute evidence of the presence or absence of disease. THIS TEST WAS PERFORMED AT: [facility] [address] [place] [phone] DEJAN CONWAY MD Free Prostate Spec Ag 0.5 INR WHOLE BLOOD POC Reviewed date:02/15/2025 08:16:17 PM Interpretation: Performing Lab:[address] [address] Notes/Report: PT, INR - Anti Coag Clinic 2.4 0.9-1.1 METER #: [id number] INTERNATIONAL NORMALIZED RATIO (INR) REFERENCE RANGES Reference [...] OC Reviewed date:02/15/2025 08:16:17 PM Interpretation: Performing Lab:[address] [address] Notes/Report: Prothrombin Time Whole Bld POC 28.9 11.1-13.5 sec INR WHOLE BLOOD POC Reviewed date:02/25/2025 01:03:25 PM Interpretation: Performing Lab:[facility], [address] [place] [address] Notes/Report: PT, INR - Anti Coag Clinic 2.9 0.9-1.1 METER #: [id number] INTERNATIONAL NORMALIZED RATIO (INR) REFERENCE RANGES Reference [...] Prothrombin Time Whole Bld P OC Reviewed date:02/25/2025 01:03:25 PM Interpretation: Performing Lab:[facility], [address] [place] [address] Notes/Report: Prothrombin Time Whole Bld POC 35.4 11.1-13.5 sec Reason For Referral Reason Evaluate and Treat New Lesion of Nose Diagnosis 1 Lesion of nose (J34. 89) Referral Organization Jose Felder III, MD Referring Provider First Name Jose Referring Provider Last Name Bradford Referring Provider Speciality Internal [facility] Referred Provider [place] [facility] [place] [place]) Referred Provider Specialty Dermatology General Notes Tamie [...] Provider Speciality Internal M edicine Referred Provider [facility], Orthopedic Surgeons Referred Provider Specialty [facility]opedic [facility] General Notes DTamie 01/31/2025 01:54:41 PM > Referral and progress note faxed. Referral Priority Urgent Referral Appointment Date 05/19/2025 Reason eval and treat needs sleep study daytime somnolence Diagnosis 1 Daytime somnolence ( R40.0) Referral Organization Jose Felder III, MD Referring Provider First Name Jose Referring Provider Last Name Bradford Referring Provider Speciality Internal M edicine Referred Provider [facility] er, Pulmonology Referred Provider Specialty Pulmonary [facility] [facility] General Notes Bhavana Salinas DAMARIS 02/10 09:06:58 AM > ref/demo/progress note/labs faxed to [place] [facility] de[facility] Referral Priority Routine Referral Appointment [...] Problem Status W/U Status Risk Notes Problem 0234811 Former smoker (Z87.891) Active confirmed He is highly motivated not to smoke and has a plan to prevent relapse in times of stress or illness. Problem 190292247 Overweight (BMI 25.0-29.9) (E66.3) Active confirmed He has lost 5 pounds and is still overweight. We discussed diet and nutrition. We made a plan to lose weight at a rate of one half of a pound per week through a diet restricted in calories combined with physical activity. Problem 066126046 Overweight (E66.3) Active confirmed He has gained 7 pounds. His body mass index is 27. We discussed his weight loss strategy. I recommended aggressive weight loss through regular physical activity and diet restricted in calories. Problem 15116216 Hypertension (I10) Active confirmed His blood pressure is stable today. Problem 00665145 Other chronic pain (G89.29) Active confirmed Problem 209421013 Solitary pulmonary nodule (R91.1) Active confirmed Problem 262267308 Environmental allergies (Z91.09) Active confirmed He has noted itching around his eyes and nasal congestion. He is using ursl-qma-oksuy er medication. I recommended fluticasone and loratadine. 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 Problem 000293627 DVT (deep venous thrombosis) (I82.409) Active confirmed He has had no blood clots. Problem 071586528 Lung cancer (C34.90) Active confirmed He remains in remission with no relapse. He is no longer smoking. Problem Thoracic back pain (706161354) Thoracic back pain (M54.6) Active confirmed The x-rays showed age related degenerative changes, but no specific cause of the back pain. An MRI is not possible because of the metal plates and his spine. A CT scan of his cervical and thoracic spine has been ordered to evaluate discs and the spinal canal. Problem 3139443 Protein S deficiency (D68.59) Active confirmed He is doing well with his chronic anticoagulatio n. The protein S deficiency is no indication for lifelong therapy. Problem Neck pain (74756562) Cervical pain (neck) (M54.2) Active confirmed He has had neurosurgery in the past on his lower cervical spine leaving him with a metal plate and a . This was done by who is now at [facility]. Problem 78679163 Other depression (F32.89) Active confirmed His medication was increased to 100 mg daily. A follow-up visit was arranged. He has no suicidal ideation and is beginning to experience improvement. Problem 497789273 Benign prostatic hyperplasia, unspecified whether lower urinary tract symptoms present (N40.0) Active confirmed He reports rising from sleep about twice a night to urinate. We have discussed some lifestyle modifications he could make to reduce this nocturia. Problem 37248856 Chronic nonintractable headache, unspecified headache type (R51) Active confirmed His headaches are improved. They're less frequent. He will continue on current therapy. Problem Disease caused by Severe acute respiratory syndrome coronavirus 2 (disorder) (253886789) COVID-19 virus infection (U07.1) Active confirmed He has recovered from his collins virus infection with no lung symptoms. Problem 788406878320 Skin lesion of face (L98.9) Active confirmed The area on his nose has the appearance of an actinic keratosis. It has only recently appeared. I have made a referral to dermatology for definitive diagnosis and treatment. Problem 692307791 Recurrent low back pain (M54.50) Active confirmed [...] Provider Diagnosis Jose Felder III, MD [address] [place] [address] [place] [address] 06/07/2024 Jose Felder 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 ; Hypertension I10 ; Overweight E66.3 ; Episodic memory loss R41.3 ; Former smoker Z87.891 and Lung cancer C34.90 Jose Felder III, MD [address] [place] [address] [place] [address] 08/23/2024 Jose Felder COVID-19 virus infec tion U07.1 ; 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 ; Former smoker Z87.891 ; Lung cancer C34.90 ; Environmental allergies Z91.09 and Overweight E66.3 Jose Felder III, MD [address] [place] [address] [place] [address] 10/04/2024 Jose Felder COVID-19 virus infec tion [...] and Overweight E66.3 Jose Felder III, MD [address] [place] [address] DR [place] [address] 10/15/2024 Jose Felder Skin lesion of face L98.9 ; 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 ; Former smoker Z87.891 ; Lung cancer C34.90 ; Environmental allergies Z91.09 ; Hypertension I10 ; DVT (deep venous thrombosis) I82.409 ; Overweight (BMI 25.0-29.9) E66.3 ; Chronic nonintractable headache, unspecified headache type R51 ; 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 and Other depression F32.89 Jose Felder III, MD [address] [place] [address] [place] [address] 01/27/2025 Jose Felder 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 ; Recurrent low back pain M54.50 ; Former smoker Z87.891 ; Lung cancer C34.90 ; Environmental allergies Z91.09 ; Chronic nonintractable headache, unspecified headache type R51 ; Overweight E66.3 and Benign prostatic hyperplasia, unspecified whether lower urinary tract symptoms present N40.0 Jose Felder III, MD [address] [place] [address] [place] [address] 02/09/2025 Jose Felder Suspected sleep apne a R29.818 ; Labyrinthitis of both ears H83.03 ; 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 ; Lung cancer C34.90 ; Overweight (BMI 25.0-29.9) E66.3 ; DVT (deep venous thrombosis) I82.409 ; Hypertension I10 ; 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 ; Benign prostatic hyperplasia, unspecified whether lower urinary tract symptoms present N40.0 and Former smoker Z87.891 Jose Felder III, MD [address] [place] [address] [place] [address] 02/16/2025 Jose Felder Thoracic back pain M 54.6 ; Former smoker Z87.891 ; Lung cancer C34.90 ; Environmental allergies Z91.09 ; Overweight (BMI 25.0-29.9) E66.3 ; 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 ; Other depression F32.89 and Benign prostatic hyperplasia, unspecified whether lower urinary tract symptoms present N40.0 Jose Felder III, MD [address] [place] [address] [place] [address] 02/24/2025 Jose Felder Thoracic back pain M 54.6 ; Cervical pain (neck) M54.2 ; 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 ; Former smoker Z87.891 ; Lung cancer C34.90 ; Overweight (BMI 25.0-29.9) E66.3 ; Chronic nonintractable headache, unspecified headache type R51 and 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 Jose Felder III, MD [address] [place] [address] [place] [address] 03/15/2024 Jose Felder III, MD [address] [place] [address] [address] [place] [address] 08/23/2024 Jose Felder III, MD [address] [place] [address] [place] [address] 08/31/2024 Jose HUSAINID-19 virus infec tion U07.1 Jose Felder III, MD [address] [place] [address] [place] [address] 08/31/2024 Jose Felder COVID-19 virus infec tion U07.1 Jose Felder III, MD [address] [place] [address] [place] [address] 09/17/2024 Jose Felder III, MD [address] [place] [address] [place] [address] 02/08/2025 Jose Felder III, MD [address] [place] [address] [place] [address] 03/02/2025 Jose Felder Assessments Encounter Date Diagnosis (ICD Code) Assessment Notes Treat ment Notes Treatment Clinical Notes 06/07/2024 Hypertension (ICD-10 - I10) His blood [...] as well as a bone density test. 02/24/2025 Thoracic back pain (ICD-10 - M54.6) [...] was done by who is now at [facility]. 08/31/2024 COVID-19 virus infection (ICD-10 - U07.1) I have prescribed Paxlovid And arrange followup telephone calls every 48 hours. He seems stable at this time. 08/31/2024 COVID-19 virus infection (ICD-10 - U07.1) I have prescribed Paxlovid And arrange followup telephone calls every 48 hours. He seems stable at this time. 06/07/2024 Overweight (ICD-10 - E66.3) He has [...] relapse. He is no longer smoking. 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 06/07/2024 Episodic memory loss (ICD-10 - R41.3) [...] eyes and nasal congestion. He is using eqhs-jyi-uxizeyy medication. I recommended fluticasone and loratadine. 02/24/2025 Former smoker (ICD-1 0 - Z87.891) He is highly motivated not to smoke and has a plan to prevent relapse in times of stress or illness. 06/07/2024 Former smoker (ICD-1 0 - Z87.891) He is highly motivated not to smoke and has a plan to prevent relapse in times of stress or illness. 08/23/2024 Environmental allergies (ICD-10 - Z91.09) He has noted itching around his eyes and nasal congestion. He is using bvwa-xqb-daylxne medication. I recommended fluticasone and loratadine. 10/04/2024 Former smoker (ICD-1 0 - Z87.891) He is highly motivated not to smoke and has a plan to prevent relapse in times of stress or illness. 10/15/2024 Environmental allergies (ICD-10 - Z91.09) He has noted itching around his eyes and nasal congestion. He is using nngq-dfq-frbexnf medication. I recommended fluticasone and loratadine. 01/27/2025 Environmental allergies (ICD-10 - Z91.09) He has noted itching around his eyes and nasal congestion. He is using gzup-iop-vadkhwj medication. I recommended fluticasone and loratadine. 02/09/2025 [...] in calories combined with physical activity. 02/24/2025 Lung cancer (ICD-10 - C34.90) He remains in remission with no relapse. He is no longer smoking. 06/07/2024 Lung cancer (ICD-10 - C34.90) He [...] deficiency is no indication for lifelong therapy. 02/24/2025 Overweight (BMI 25.0-29.9) (ICD-10 - E66.3) He has lost 5 pounds and is still overweight. We discussed diet and nutrition. We made a plan to lose weight at a rate of one half of a pound per week through a diet restricted in calories combined with physical activity. 10/04/2024 Environmental allergies (ICD-10 - Z91.09) He has noted itching around his eyes and nasal congestion. He is using ozkn-zmc-xuzpmsl medication. I recommended fluticasone and loratadine. 10/15/2024 [...] ideation and is beginning to experience improvement. 02/24/2025 Chronic nonintractable headache, unspecified headache type (ICD-10 - R51) His headaches are improved. They're less frequent. He will continue on current therapy. 10/04/2024 Overweight (BMI 25.0-29.9) (ICD-10 - E66.3) [...] he could make to reduce this nocturia. 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 The protein S deficiency is no indication for lifelong therapy. 10/04/2024 Protein S deficiency (ICD-10 - D68.59) [...] Date PROFILE, FASTING (COMPREHENSIVE METABOLI C) 06/07/2024 PROFILE, [...] PROFILE, FASTING (COMPREHENSIVE METABOLI C) 06/18/2023 PROFILE, RANDOM (COMPREHENSIVE METABOLIC ) 10/14/2018 PROFILE, [...] 10/04/2024 PSA, TOTAL+FREE 02/26/2021 CBC w DIFF 08/12/2022 CBC w DIFF 08/19/2019 CBC w DIFF 07/06/2018 CBC w DIFF 06/07/2024 CBC w DIFF 07/11/2021 CBC w DIFF 01/25/2020 CBC w DIFF 06/19/2022 CBC w DIFF 10/14/2018 CBC w DIFF 05/08/2017 CBC w DIFF 01/27/2025 CBC w DIFF 03/26/2022 CBC w DIFF 11/18/2019 CBC w DIFF 02/26/2021 CBC w DIFF 11/21/2017 CBC w DIFF 12/09/2022 CBC w DIFF 09/30/2023 CBC w DIFF 10/30/2020 CBC w DIFF 10/04/2024 CBC w DIFF 11/09/2021 SED RATE (ESR) 03/26/2022 CT THORACIC SPINE NO CONTRAST 02/24/2025 BONE DENSITY DEXA 02/16/2025 CBC WITH AUTO DIFF 06/18/2023 CBC WITH AUTO DIFF 01/27/2024 Lipid Panel 09/30/2023 Lipid Panel 10/04/2024 Lipid Panel 06/18/2023 Lipid Panel 06/07/2024 Lipid Panel 07/11/2021 Lipid Panel 01/27/2025 Lipid Panel 01/27/2024 PSA Free and Total 01/27/2025 CT cervical spine wo con 02/24/2025 Next Appt Details Provider Name:Jose Felder, 03/10/2025 09:30:00 AM, [address] [place] [address] [address], [place], [address], Provider Name:Jose Felder, 10/05/2025 02:30:00 PM, [address] [place] [address] [address], [place], [address], Insurance Providers Payer Name Payer Address Payer Phone Subscriber Number Group Number Insured Name Patient Relationship to Insured Coverage Start Date Coverage End Date [facility] [address] [place], [place] [id number] [phone] [id number] Jem Gallardo Self - patient is the insured 4 MEDICARE NGS [address] [place] [address] [id number] Jem Gallardo Self - patient is the insured Medical (General) History Medical History History ICD Code migraine headaches allergies hypertension anal fissure staphylococcal infection 1999 chronic lymphocytic leukemia in [facility] lung cancer, non-small cell obesity former smoker dvt february 2015 right leg protein S deficiency Covid 22 August 2024 Surgical History Surgery Date(Month/Year) No history Cyst removed from his back 08/2022 cataract right eye 06/2018 FNA superior mediastinal mass Hospitalization History Reason Date(Month/Year) No history
== END 2025-03-05 08:48 | disposition home or self-care (01) ==
LOC: HO.CT 08:47
PROVIDERS: PCP Internal Medicine Medical Oncology; Visit Provider Internal Medicine Medical Oncology
DX: M54.6 Pain in thoracic spine (principal); M54.2 Cervicalgia
CPT/HCPCS: 72125; 72128

== ENCOUNTER → 2025-03-05 09:01 | Outpatient (BNV) | payer MEDICARE, SELFPAY | PROVIDERS: PCP Internal Medicine Medical Oncology; Visit Provider Radiology Diagnostic Radiology | DX: M54.6 Pain in thoracic spine (principal); M54.2 Cervicalgia | CPT/HCPCS: 72125; 72128 ==

== ENCOUNTER 2025-03-11 08:26 | Outpatient (AMB) | payer MEDICARE, SELFPAY ==
--- OUTSIDE RECORDS SUMMARY | 2025-03-10 05:30 | XMS_ITS ---
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 No changes. Regimen was needed today. Problem 11764763 Cervical radiculopathy (M54.12) Active confirmed Follows vigorous [...] Date Provider Diagnosis Jose Felder III, MD [address] [place] [address] [place] [address] 03/10/2025 Jose Felder Former smoker Z87.89 1 [...] eyes and nasal congestion. He is using swuc-ntj-eprpptq medication. I recommended fluticasone and loratadine. 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 He is using egds-zir-arusmsv medication. I recommended fluticasone and loratadine. Plan: [...] 0 03/10/2025 Generated for Frandy mittal/Apple/Rubenitting on: 0 03/11/2025 08:38 AM EDT History and Physical Notes * [...]
[2025-03-11 08:38] LABS: Prothrombin Time Whole Bld POC 21.6 sec (11.1-13.5); ~PT, ~INR - Anti Coag Clinic 1.8 (0.9-1.1)
--- OUTSIDE RECORDS SUMMARY | 2025-03-11 08:39 | XMS_ITS | Patient Health Record ---
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 Plan Of Treatment Pending Test Test Name Order Date X ray : Foot, left 3V 06/28/2013 [id number] TENDON SHEATH/LIGAMENT 0 09/08/2013,[id number] TENDON SHEATH/LIGAMENT 0 01/11/2014,[id number]-CRT TENDON SHEATH/LIGAMENT 0 10/12/2019 Insurance Providers Payer Name Payer Address Payer Phone Subscriber Number Group Number Insured Name Patient Relationship to Insured Coverage Start Date Coverage End Date Medicare National Govt Brag[employer] [facility] [address] [place] [address] [id number] Jem Gallardo Self - patient is the insured [employer] [address] [place] [address] [id number] Jem Gallardo Self - patient is the [...]
--- NOTE | 2025-03-11 08:45 | MHC.OFFVISCO ---
Intake Intake Visit Reasons: Anticoagulation Allergies Seasonal Allergies Allergy (Intermediate, Verified 03/11/25 08:31) Cough venlafaxine Adverse Reaction (Intermediate, Verified 03/11/25 08:31) Headache Medication List - Last Reconciled 03/11/25 by Brenda Trimble RN cyclobenzaprine 5 mg PO TID PRN losartan 25 mg PO DAILY simvastatin 40 mg PO DAILY sumatriptan succinate 100 mg PO PRN vitamin B complex PO [VITAMIN D 3 PO] warfarin 5 mg See Protocol PO DAILY Nursing Note INR 1.8? out of therapeutic range Medications and supplements reviewed Patient status: Was away on vacation and missed a dose of warfarin - he made up part of a dose, more active on vacation and diet changes Medications or supplements: on muscle relaxer for stiff neck Diet: good Denies any signs and symptoms of bleeding or clotting or unusual bruising Bleeding, bruising, clotting discussed Nutritional guidance given: avoid greens today Dose: 7.5mg today then resume 5mg mwf/ 7.5mg x 4 days F/U INR Date: 2 weeks ?? Patient verbalizing understanding of instructions given. 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
== END 2025-03-11 08:48 | disposition home or self-care (01) ==
LOC: HO.ACS 08:26
PROVIDERS: PCP Internal Medicine Medical Oncology; Visit Provider Internal Medicine Medical Oncology
DX: Z79.01 Long term (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 (principal)

== ENCOUNTER → 2025-03-11 08:26 | Outpatient (BNVA) | payer MEDICARE, SELFPAY | PROVIDERS: PCP Internal Medicine Medical Oncology; Visit Provider Internal Medicine Medical Oncology | DX: Z79.01 Long term (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 (principal) | CPT/HCPCS: 85610; 99211 ==

== ENCOUNTER 2025-03-16 10:13 | Outpatient (AMB) | payer MEDICARE, SELFPAY ==
--- OUTSIDE RECORDS SUMMARY | 2025-03-10 05:30 | XMS_ITS ---
Author Organization Jose Felder III, MD Address [address] [place] [address] [place] [address] Care Team Providers Care Exhibition Specialist Name Role Phone Jose Felder Primary [...] has it been since you last smoked? Bhavesh ter than 10 years Additional Findings: Tobacco non-user Ex-cigaret te smoker Problems Problem Type SNOMED Code ICD Code Onset Dates Problem Status W/U Status Risk Notes Problem 091985616 Sensorineural hearing loss (SNHL) of both ears (H90.3) Active confirmed Problem 107173636 Diabetes mellitus type 2 in nonobese (E11.9) Active confirmed He was continued on current therapy. He will be back in the office in the near future to reevaluate this problem. Problem 67406145 Cervical radiculopathy (M54.12) Active confirmed Follows vigorous [...] Date Provider Diagnosis Jose Felder III, MD [address] [place] [address] [place] [address] 03/10/2025 Jose Felder Former smoker Z87.89 1 [...] eyes and nasal congestion. He is using hpuu-zxz-azviauz medication. I recommended fluticasone and loratadine. 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 He is using mxdx-kpw-ainffwi medication. I recommended fluticasone and loratadine. Plan: [...] 03/10/2025 Generated for Frandy mittal/Apple/Rubenitting on: 0 03/16/2025 10:54 AM EDT History and Physical Notes * [...]
--- NOTE | 2025-03-16 10:54 | MHC.OFFVIS ---
Vital Signs 03/16/25 10:55 Height 5 ft 11.5 in Weight 189 lb 9.561 oz BMI 26.1 BP 130/90 H Blood Pressure Location Lt brachial Position Sitting Pulse 87 Pulse Source Pulse Oximeter Pulse Oximetry (%) 95 Oxygen Delivery Method Room Air Intake Visit Reasons: Somnolence Intake Note: pt is here for daytime fatigue, some snoring, Hand Knitter Required: No Allergies Seasonal Allergies Allergy (Intermediate, Verified 03/16/25 11:02) Cough venlafaxine Adverse Reaction (Intermediate, Verified 03/16/25 11:02) Headache Medication List - Last Reconciled 03/16/25 by Gemini Stephenson MD cyclobenzaprine 5 mg PO TID PRN losartan 25 mg PO DAILY simvastatin 40 mg PO DAILY sumatriptan succinate 100 mg PO PRN trazodone 50 mg PO DAILY vitamin B complex PO [VITAMIN D 3 PO] warfarin 5 mg See Protocol PO DAILY Do you need a note to return to daycare/school/sports/work: No HPI HPI Somnolence: Details: GIDEON IS 80 YEARS OLD VERY PLEASANT 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 HE IS REFERRED TO BE EVALUATED FOR DAYTIME SLEEPINESS. GIDEON IS NOT OVERWEIGHT. HE DID TELL ME THAT ABOUT 15-20 YEARS AGO OR MAY BE EVEN MORE THAN THAT, HE WAS DIAGNOSED TO HAVE SLEEP APNEA. HE WAS STARTED ON CPAP THERAPY BUT DID NOT TOLERATE THE CPAP. SO HE HAS LIVED WITH THIS ISSUE ALL THIS TIME. NOW MORE RECENTLY HE HAS EXPERIENCED , OR SLEEP AT NIGHT. AND HE HAS HAD EPISODES OF BEING OVERCOME WITH SLEEPINESS DURING THE DAY . A FEW MONTHS AGO HE WAS DRIVING ON THE TURNPIKE FELT SLEEPY AND HAD TO PULL HIS CAR OFF THE TURNPIKE, AND ACTUALLY TOOK A NAP SOMETIME AND THEN FELT BETTER. RECENTLY HAS BEEN PRESCRIBED TRAZODONE 50 MG TO BE TAKEN AT NIGHT AND HE SAY IS WITH THAT HIS SLEEP HAS IMPROVED AT NIGHT, BUT HE STILL HAS DAYTIME SLEEPINESS. ACCORDING TO HIS HE ALSO SNORES AT NIGHT. HIS WEIGHT IS NORMAL HE IS KIND OF AT LOSS TO UNDERSTAND THE REASON FOR HIS DAYTIME SLEEPINESS. IN ADDITION TO TRAZODONE 50 MG AT NIGHT HE DOES USE CYCLOBENZAPRINE 5 MG T.I.D. BUT ONLY P.R.N. FOR BACK SPASMS. HE DENIES DRINKING ALCOHOL. [facility] Medical History (Updated 03/16/25 @ 12:32 by Gemini Stephenson MD) Snoring Retrognathia Somnolence, daytime Osteoarthritis of left knee Phlebitis and thrombophlebitis of other deep vessels of right lower extremity Current use of anticoagulant therapy Surgical History History of cataract Family History Father Diabetes Hyperlipemia Brother Lung cancer Social History Household Members: Spouse Alcohol intake: never Patient Tobacco Use Status: Former Tobacco user Tobacco use type: Cigar Current occupational status: retired Review of Systems Const All systems reviewed & are unremarkable except as noted in HPI and below Eyes Reports no additional complaints ENT Reports no additional complaints Card Denies chest pain, Reports irregular heart rhythm, Denies leg edema and Denies dyspnea on exertion Resp Reports as per HPI and Denies dyspnea on exertion GI Reports no additional complaints Reports no additional complaints Musc Reports back pain (MILD OFF AND ON) Skin/Breast Reports system reviewed and no additional complaints, except as documented Neuro Reports no additional complaints Psych Reports no additional complaints Endo Reports no additional complaints Nick/Lymph Reports no additional complaints Aller/Immun Reports no additional complaints Physical Exam Vital Signs: Last Vital Signs Pulse 87 03/16/25 10:55 BP 130/90 H 03/16/25 10:55 Pulse Ox 95 03/16/25 10:55 Oxygen Delivery Method Room Air 03/16/25 10:55 BMI result Body Mass Index 26.1 THIS 80 YEARS OLD GENTLEMAN APPEARS TO BE IN GOOD GENERAL HEALTH Const General: healthy appearing, comfortable, no acute distress, alert and awake Orientation/consciousness: patient oriented x3 HEENT Head: Yes normal to inspection General nose exam: No nasal polyps present and No nasal discharge present Face and sinus: Yes sinuses nontender Mouth: oropharynx normal (TONGUE BASE IS PLACED BACK AND OROPHARYNX IS NARROW, MALLAMPATI CLASS 4) Teeth and gingiva: other (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.) Throat: Yes posterior oropharynx normal Eyes General: appearance normal, both eyes and all related structures Neck Neck: Yes normal visual inspection, Yes no lymphadenopathy, Yes trachea midline and Yes no JVD Thyroid: Thyroid normal Chest Chest palpation & inspection: normal inspection of the chest, normal palpation of entire chest wall and no tenderness Resp Effort & Inspection: normal respiratory effort Auscultation: clear to auscultation bilaterally, no crackles and no wheezes Cardio Palpation: normal PMI Rate: regular rate Rhythm: regular rhythm Heart sounds: no gallops and no murmurs Peripheral pulses: Peripheral pulses 2+ throughout GI Palpation (GI): Soft to palpation, nontender, No hepatosplenomegaly present and no masses Auscultation: normal bowel sounds Back/Spine/Pelvis Thoracic/Lumbar Spine: thoracic and lumbar spine normal to inspection Skin General skin exam: no rashes or lesions noted Neuro General: patient oriented x3 and no focal motor deficits Cranial nerves: Yes CN's II-XII intact bilaterally Extrem General: Yes normal to inspection, Yes no clubbing, cyanosis or edema and Yes no calf tenderness Psych Appearance: grossly normal and well kempt Speech and movement: Normal speech and movement present Assessment & Plan Assessment & Plan (1) Somnolence, daytime: Comment: PATIENT DOES HAVE HISTORY OF FEELING SLEEPY DURING THE DAY ALONG WITH SOME TIRED FEELING. HE HAS HISTORY OF SOMNOLENCE WHILE DRIVING, AND HAD TO PULL HIS CAR OFF THE HIGHWAY AND TAKE A NAP. HAS HISTORY OF SREEKANTH IN THE REMOTE PAST AND COULD NOT TOLERATE THE CPAP. Code(s): R40.0 - Somnolence Category: Medical Plan: THE SYMPTOMS ARE TYPICAL OF OBSTRUCTIVE SLEEP APNEA RESULTING IN INSUFFICIENT SLEEP AT NIGHT. THE MAIN CAUSE OF HIS SLEEP APNEA SEEMS TO BE RETROGNATHIA OF THE LOWER JAW PATIENT NEEDS TO HAVE A SLEEP STUDY AND THEN CONSIDER STARTING ON CPAP THERAPY. (2) Retrognathia: Comment: PER EXAMINATION HE HAS PROMINENT RETROGNATHIA OF THE LOWER JAW. WHICH SEEMS TO BE THE MAIN CAUSE OF HIS SLEEP APNEA. Code(s): M26.19 - Other specified anomalies of jaw-cranial base relationship Category: Medical Plan: PATIENT IS EDUCATED ABOUT THIS PADMINI DENTAL ABNORMALITY BEING THE CAUSE OF SLEEP APNEA. NOW HE UNDERSTANDS WELL AND IS WILLING TO TRY USING CPAP IF NEEDED. (3) Snoring: Comment: HE DOES HAVE HISTORY OF SNORING WHICH ALSO GOES ALONG WITH POSSIBLE SLEEP APNEA Code(s): R06.83 - Snoring Category: Medical Plan: PATIENT IS SCHEDULED FOR HAVING HOME-BASED SLEEP STUDY Orders: Orders RT home sleep study Today M26.19 - Other specified anomalies of jaw-cranial base relationship, R06.83 - Snoring, R40.0 - Somnolence Coding Level of Care Code New Pt Level 3 (21236) Diagnoses Somnolence, daytime R40.0 Retrognathia M26.19 Snoring R06.83
--- OUTSIDE RECORDS SUMMARY | 2025-03-16 10:54 | XMS_ITS | Patient Health Record ---
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 Plan Of Treatment Pending Test Test Name Order Date X ray : Foot, left 3V 06/28/2013 [id number] TENDON SHEATH/LIGAMENT 0 09/08/2013,[id number] TENDON SHEATH/LIGAMENT 0 01/11/2014,[id number] TENDON SHEATH/LIGAMENT 0 10/12/2019 Insurance Providers Payer Name Payer Address Payer Phone Subscriber Number Group Number Insured Name Patient Relationship to Insured Coverage Start Date Coverage End Date Medicare National Govt [employer] [facility] [address] [place] [address] [id number] Jem Gallardo Self - patient is the insured [employer] [address] [place] [address] [id number] Jem Gallardo Self - patient is the [...]
[2025-03-16 10:55] VITALS: BP 130/90; PULSE 87; O2SAT 95; BMI 26.1
== END 2025-03-16 11:21 | disposition home or self-care (01) ==
PROVIDERS: PCP Internal Medicine Medical Oncology; Referring Provider Internal Medicine Medical Oncology; Visit Provider Internal Medicine
DX: R40.0 Somnolence (principal); M26.19 Other specified anomalies of jaw-cranial base relationship; R06.83 Snoring
CPT/HCPCS: 99203

== ENCOUNTER → 2025-03-16 10:13 | Outpatient (BNVA) | payer MEDICARE, SELFPAY | PROVIDERS: PCP Internal Medicine Medical Oncology; Referring Provider Internal Medicine Medical Oncology; Visit Provider Internal Medicine | DX: R40.0 Somnolence (principal); M26.19 Other specified anomalies of jaw-cranial base relationship; R06.83 Snoring | CPT/HCPCS: 99202 ==

== ENCOUNTER 2025-03-25 08:47 | Outpatient (AMB) | payer MEDICARE, SELFPAY ==
--- OUTSIDE RECORDS SUMMARY | 2025-03-10 05:30 | XMS_ITS ---
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 He will be back in the office in the near future to reevaluate this problem. Problem 08027054 Cervical radiculopathy (M54.12) Active confirmed Follows vigorous [...] Date Provider Diagnosis Jose Felder III, MD [address] [place] [address] [place] [address] 03/10/2025 Jose Felder Former smoker Z87.89 1 [...] eyes and nasal congestion. He is using yiym-pbt-rtejukj medication. I recommended fluticasone and loratadine. 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 He is using phlm-pni-ducqqus medication. I recommended fluticasone and loratadine. Plan: [...] 03/10/2025 Generated for Frandy mittal/Apple/Rubenitting on: 0 03/25/2025 09:00 AM EDT History and Physical Notes * [...]
--- OUTSIDE RECORDS SUMMARY | 2025-03-25 09:01 | XMS_ITS | Patient Health Record ---
Author Organization [facility] Address [address] [place] [address] Care Team Providers Care Auto Brake Mechanic Name Role Phone Jose Felder MD Primary Care Provider Unavailab Sharath Hopson Unavailable [phone] Allergies Allergen (clinical drug ingredient) Drug/Non Drug [...] Date X ray : Foot, left 3V 06/28/[id number] TENDON SHEATH/LIGAMENT 0 09/08/[id number] TENDON SHEATH/LIGAMENT 0 01/11/2014,[id number] TENDON SHEATH/LIGAMENT 0 10/12/2019 Insurance Providers Payer Name Payer Address Payer Phone Subscriber Number Group Number Insured Name Patient Relationship to Insured Coverage Start Date Coverage End Date Medicare National Govt [employer] [address] [place] [address] [id number] Jem Gallardo Self - patient is the insured [employer] [address] [place] [address] [id number] Jem Gallardo Self - patient is the [...]
[2025-03-25 09:02] LABS: Prothrombin Time Whole Bld POC 24.9 sec (11.1-13.5); ~PT, ~INR - Anti Coag Clinic 2.1 (0.9-1.1)
--- NOTE | 2025-03-25 09:10 | MHC.OFFVISCO ---
Intake Intake Visit Reasons: Anticoagulation Allergies Seasonal Allergies Allergy (Intermediate, Verified 03/25/25 08:57) Cough venlafaxine Adverse Reaction (Intermediate, Verified 03/25/25 08:57) Headache Medication List - Last Reconciled 03/25/25 by Brenda Trimble RN cyclobenzaprine 5 mg PO TID PRN losartan 25 mg PO DAILY simvastatin 40 mg PO DAILY sumatriptan succinate 100 mg PO PRN trazodone 50 mg PO DAILY vitamin B complex PO [VITAMIN D 3 PO] warfarin 5 mg See Protocol PO DAILY Nursing Note INR: 2.1 in therapeutic range Medications and supplements reviewed- pt states he may have missed a dose *has sinus congestion this am may be related to allergies - he is going to drink more fluids and use saline nasal spray No changes in health, diet, medications, or supplements, Denies any signs and symptoms of bleeding or bruising or clotting. Bleeding, bruising, clotting discussed Nutritional guidance given - cont to eat a mix of fruits and vegetables Dose: 7.5mg x 4 days/ 5mg mwf F/U INR: 3 weeks Patient verbalizes understanding of instructions given Anti-Coag Initial Assessment Social Hx Patient Tobacco Use Status: Former Tobacco user Tobacco use type: Cigar alcohol intake: never Coding Level of Care Code Est Patient Level 1 Diagnoses Current use of anticoagulant therapy Z79.01 Results AMB INR Fingerstick AMB INR Fingerstick 2.1 Last Edit by Brenda Trimble RN on 03/25/25 09:03 manual entry Assessment & Plan Assessment & Plan (1) Current use of anticoagulant therapy: Code(s): Z79.01 - custodial (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
== END 2025-03-25 09:12 | disposition home or self-care (01) ==
LOC: HO.ACS 08:47
PROVIDERS: PCP Internal Medicine Medical Oncology; Visit Provider Internal Medicine Medical Oncology
DX: Z79.01 Long term (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 (principal)

== ENCOUNTER → 2025-03-25 08:47 | Outpatient (BNVA) | payer MEDICARE, SELFPAY | PROVIDERS: PCP Internal Medicine Medical Oncology; Visit Provider Internal Medicine Medical Oncology | DX: Z86.718 Personal history of other venous thrombosis and embolism (principal); Z79.01 Long term (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; Z51.81 Encounter for therapeutic drug level monitoring | CPT/HCPCS: 85610; 99211 ==

== ENCOUNTER 2025-04-15 08:52 | Outpatient (AMB) | payer MEDICARE, SELFPAY ==
--- OUTSIDE RECORDS SUMMARY | 2025-02-16 05:45 | XMS_ITS ---
Author Organization Jose Felder III, MD Address [address] [place] [address] DR PACKER Kervin [place] [address] Care Team Providers Care Executive Kitchen Manager Name Role Phone Jose Felder Primary Care Provider Allergies Allergen (clinical drug ingredient) Drug/Non Drug Allergy documented on EMR Reaction Allergy Type Onset Date Status No Known Drug Allergy Unknown Drug Allergy Active Seasonale Unknown Drug Allergy Active Results Component Value Reference Range Notes Lipid Panel Reviewed date:02/25/2025 01:03:25 PM Interpretation: Performing Lab:[facility], [address] [place] [phone] Notes/Report: Triglycerides 73 <150 mg/dL Desirable Triglyceride: [...] Amylase Reviewed date:02/25/2025 01:03:25 PM Interpretation: Performing Lab:[facility], [address] [place] [address] Notes/Report: Amylase 57 28-100 U/L XR thoracic spine 3V Reviewed date:02/25/2025 01:03:25 PM Interpretation: Performing Lab: Notes/Report: [address] [address] XRay Report Signed Patient: Jem Quinteros MR#: [id number] 3 : 1945 Acct:[id number] Age/Sex: 79 / M ADM Date: 02/16/25 Loc: HO.LAB Attending Dr: Jose Felder MD Ordering Physician: Jose Felder MD Date of Service: 02/16/25 Procedure(s): XR thoracic spine 3V Accession Number(s): [id number] cc: Jose Felder MD EXAMINATION: XR THORACIC [...] 02/16/25 1056 DD/ 1045 TD/TT: 02/16/25 1051 Trash Collector Supervisor: [address] [address] XRay Report Signed Patient: Jem Quinteros MR#: [id number] 3 : 1945 Acct:[id number] Age/Sex: 79 / M ADM Date: 02/16/25 Loc: HO.LAB Attending Dr: Jose Felder MD Ordering Physician: Jose Felder MD Date of Service: 02/16/25 Procedure(s): XR thoracic spine 3V Accession Number(s): [id number] cc: Jose Felder MD EXAMINATION: XR THORACIC [...] 02/16/25 1056 DD/ 1045 TD/TT: 02/16/25 1051 Trash Collector Supervisor: REASON FOR VISIT Vertigo, Back pain, [...] Status Risk Notes Problem Thoracic back pain (398945878) Thoracic back pain (M54.6) Active confirmed The [...] Date Provider Diagnosis Jose Felder III, MD [address] [place] [address] [place] [address] 02/16/2025 Jose Felder Thoracic back pain M54.6 [...] eyes and nasal congestion. He is using hmpu-xty-vsepzdr medication. I recommended fluticasone and loratadine. 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 He is using fdjo-mjy-tydlxhw medication. I recommended fluticasone and loratadine. 5 [...] 0 02/16/2025 Generated for Frandy mittal/Apple/Rubenitting on: 0 04/15/2025 09:34 AM EDT History and Physical Notes * [...]
--- OUTSIDE RECORDS SUMMARY | 2025-02-24 05:00 | XMS_ITS ---
Author Organization Jose Felder III, MD Address [address] [place] [address] [place] [address] Care Team Providers Care School Psychologist Name Role Phone Jose Felder Primary Care [...] W/U Status Risk Notes Problem Neck pain ([id number]) Cervical pain (neck) (M54.2) Active confirmed He has had neurosurgery in the past on his lower cervical spine leaving him with a metal plate and a . This was done by who is now at [facility]. Vital Signs Temperature 98.3 degrees Fahrenheit 02/25/20 25 Blood pressure systolic 119 mm Hg 02/25/20 25 Blood pressure diastolic 74 mm Hg 025 Heart Rate 86 /min 02/24/2025 Height 71 in 02/24/2025 Weight 194 lbs 02/24/2025 BMI 27.05 kg/m2 02/24/2025 Encounters Encounter Location Date Provider Diagnosis Jose Felder III, MD [address] [place] [address] [place] [address] 02/24/2025 Jose Felder Thoracic back pain M [...] was done by who is now at [facility]. 02/24/2025 Chronic lymphoid leukemia (ICD-10 - [...] Up: 2 Weeks, Reason: ov Provider Name:Jose Felder, 05/18/2025 10:30:00 AM, [address] [place] [address] [address], [place], [address], Provider Name:Jose Felder, 10/05/2025 02:30:00 PM, [address] [place] [address] [address], [place], [address], Progress Notes * Jem QUINTEROSDOB:1945 ( 79 yo M)Acc No.[id number]:02/24/2025 Progress Notes Patient: Jem JI Provider: Annalise Felder MD :1945 A ge:79 Y S ex:Male Date:02/24/2025 Address: [place], [id number] Subjective: * Chief Complaints: * T horacic [...] smoker 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. 3 . C hronic lymphoid leukemia [...] true * Provider: Annalise Felder MD Date: 02/24/2025 Generated for Frandy mittal/Apple/Rubenitting on: 04/15/2025 09:34 AM EDT History and Physical [...]
--- OUTSIDE RECORDS SUMMARY | 2025-03-02 06:06 | XMS_ITS ---
Author Organization Jose Felder III, MD Address [address] [place] [address] [address] [place] [address] Care Team Providers Care Ends Down Checker Name Role Phone Jose Felder Primary Care Provider [phone] REASON FOR VISIT needs medical records Social History Sex Assigned At : Social History Observation Description Sex Assigned At Male Encounters Encounter Location Date Provider Diagnosis Jose Felder III, MD [address] [place] [address] [place] [address] 03/02/2025 Jose Felder Plan Of Treatment Next Appt Details Provider Name:Jose Felder, 05/18/2025 10:30:00 AM, [address] [place] [address] [place], [address], Provider Name:Jose Felder, 10/05/2025 02:30:00 PM, [address] [place] [address] [place], [address], Progress Notes * Jem QUINTEROSDOB:1945 ( 79 yo M)Acc No.[id number]:03/02/2025 Patient: Jem JI :1945 A ge:79 Y S ex:Male Address:[address] [place] [address] * true * Date: Generated for Frandy mittal/Apple/Amauri on: 0 04/15/2025 09:34 AM EDT
--- OUTSIDE RECORDS SUMMARY | 2025-03-10 05:30 | XMS_ITS ---
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 He will be back in the office in the near future to reevaluate this problem. Problem 34872280 Cervical radiculopathy (M54.12) Active confirmed Follows vigorous [...] Date Provider Diagnosis Jose Felder III, MD [address] [place] [address] [place] [address] 03/10/2025 Jose Felder Former smoker Z87.89 1 [...] eyes and nasal congestion. He is using mjxz-gqz-wetwwkw medication. I recommended fluticasone and loratadine. 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 He is using uesr-koo-pzxkjpg medication. I recommended fluticasone and loratadine. Plan: [...] 03/10/2025 Generated for Frandy mittal/Apple/Rubenitting on: 0 04/15/2025 09:33 AM EDT History and Physical Notes * [...]
--- OUTSIDE RECORDS SUMMARY | 2025-03-15 05:00 | XMS_ITS ---
Author Organization Jose Felder III, MD Address [address] [place] [address] [place] [address] Care Team Providers Care Air Purifier Servicer Name Role Phone Jose Felder Primary Care [...] Provider Diagnosis Jose Felder III, MD [address] [place] [address] [place] [address] 03/15/2025 Jose Felder Hypertension I10 ; P [...] eyes and nasal congestion. He is using qxsf-ddq-flozcxj medication. I recommended fluticasone and loratadine. Plan [...] Up: 2 Months, Reason: OV Provider Name:Jose Felder, 05/18/2025 10:30:00 AM, [address] [place] [address] [address], [place], [address], Provider Name:Jose Felder, 10/05/2025 02:30:00 PM, [address] [place] [address] [address], [place], [address], Progress Notes * Jem QUINTEROSDOB:1945 ( 80 yo M)Acc No.[id number]:03/15/2025 Patient: Jem JI Provider: Annalise Felder MD :1945 A ge:80 Y S ex:Male Date:03/15/2025 Address:[address] [id number] Subjective: * Chief Complaints: * T horacic [...] ocation of provider rendering services: { ...} [address] [place] [address] [address] [facility] [address] L ocation of patient: zain martínez listed [...] smoker 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 He is using gykk-fcj-rgwefym medication. I recommended fluticasone and loratadine. Plan: [...] MD Date: 0 03/15/2025 Generated for Frandy mittal/Apple/Amauri on: 0 04/15/2025 09:34 AM EDT History and Physical Notes * HPI (History of Present Illness) Category Sub-Category Detail Notes Telehealth Location of [facility] ider rendering services:: {...} [address] [facility] [address] Location of patient:: address listed in demographics [...]
[2025-04-15 08:57] LABS: Prothrombin Time Whole Bld POC 33.5 sec (11.1-13.5); ~PT, ~INR - Anti Coag Clinic 2.8 (0.9-1.1)
--- NOTE | 2025-04-15 09:01 | MHC.OFFVISCO ---
Intake Intake Visit Reasons: Anticoagulation Allergies Seasonal Allergies Allergy (Intermediate, Verified 04/15/25 08:53) Cough venlafaxine Adverse Reaction (Intermediate, Verified 04/15/25 08:53) Headache Medication List - Last Reconciled 04/15/25 by Razia López, RN cyclobenzaprine 5 mg PO TID PRN losartan 25 mg PO DAILY simvastatin 40 mg PO DAILY sumatriptan succinate 100 mg PO PRN trazodone 50 mg PO DAILY vitamin B complex PO [VITAMIN D 3 PO] warfarin 5 mg See Protocol PO DAILY Nursing Note INR: 2.8 in therapeutic range of 2-3 Medications and supplements reviewed No changes in health, diet, medications, or supplements, Denies any signs and symptoms of bleeding or bruising or clotting. Bleeding, bruising, clotting discussed Nutritional guidance given Dose: 7.5mg X 4 days and 5mg X 3 days F/U INR: 3 weeks Patient verbalizes understanding of instructions given Anti-Coag Initial Assessment Social Hx Patient Tobacco Use Status: Former Tobacco user Tobacco use type: Cigar alcohol intake: never Coding Level of Care Code Est Patient Level 1 Diagnoses Current use of anticoagulant therapy Z79.01 Assessment & Plan Assessment & Plan (1) Current use of anticoagulant therapy: Code(s): Z79.01 - vermin exterminator (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
--- OUTSIDE RECORDS SUMMARY | 2025-04-15 09:34 | XMS_ITS | Patient Health Record ---
Author Organization Jose Felder III, MD Address [address] [place] [address] Care Team Providers Care Field Test Engineer Name Role Phone Jose Felder Primary Care [...] Panel Reviewed date:02/25/2025 01:03:25 PM Interpretation: Performing Lab:[facility], [address] [place] [phone] Notes/Report: Triglycerides 73 <150 mg/dL Desirable Triglyceride: [...] Amylase Reviewed date:02/25/2025 01:03:25 PM Interpretation: Performing Lab:[facility], [address] [place] [phone] Notes/Report: Amylase 57 28-100 U/L XR thoracic spine 3V Reviewed date:02/25/2025 01:03:25 PM Interpretation: Performing Lab: Notes/Report: [address] [address] XRay Report Signed Patient: Jem Gallardo MR#: [id number] 3 : 1945 Acct:[id number] Age/Sex: 79 / M ADM Date: 02/16/25 Loc: HO.LAB Attending Dr: Jose Felder MD Ordering Physician: Jose Felder MD Date of Service: 02/16/25 Procedure(s): XR thoracic spine 3V Accession Number(s): [id number] cc: Jose Felder MD EXAMINATION: XR THORACIC [...] 02/16/25 1056 DD/ 1045 TD/TT: 02/16/25 1051 Finish Repair Worker: [address] [address] XRay Report Signed Patient: Jem Gallardo MR#: [id number] 3 : 1945 Acct:[id number] Age/Sex: 79 / M ADM Date: 02/16/25 Loc: HO.LAB Attending Dr: Jose Felder MD Ordering Physician: Jose Felder MD Date of Service: 02/16/25 Procedure(s): XR thoracic spine 3V Accession Number(s): [id number] cc: Jose Felder MD EXAMINATION: XR THORACIC [...] 02/16/25 1056 DD/ 1045 TD/TT: 02/16/25 1051 Finish Repair Worker: INR WHOLE BLOOD POC Reviewed date:04/21/2024 06:39:37 AM Interpretation: Performing Lab:[facility], [address] [place] [phone] Notes/Report: PT, INR - Anti Coag Clinic 1.9 0.9-1.1 METER #: [id number] INTERNATIONAL NORMALIZED RATIO (INR) REFERENCE RANGES Reference [...] OC Reviewed date:04/21/2024 06:39:38 AM Interpretation: Performing Lab:[facility], [address] [place] [phone] Notes/Report: Prothrombin Time Whole Bld POC 22.2 11.1-13.5 sec INR WHOLE BLOOD POC Reviewed date:05/18/2024 11:38:32 AM Interpretation: Performing Lab:[facility], [address] [place] [phone] Notes/Report: PT, INR - Anti Coag Clinic 2.1 0.9-1.1 METER #: [id number] INTERNATIONAL NORMALIZED RATIO (INR) REFERENCE RANGES Reference [...] OC Reviewed date:05/18/2024 11:38:32 AM Interpretation: Performing Lab:[facility], [address] [place] [phone] Notes/Report: Prothrombin Time Whole Bld POC 25.7 11.1-13.5 sec Complete Blood Count Auto Di ff Reviewed date:06/07/2024 11:48:38 AM Interpretation: Performing Lab:[facility], [address] [place] [phone] Notes/Report: White Blood Count 9.5 4.8-10.8 X10*3/uL [...] NRBC Abs Auto 0.000 0.0-0.012 X10*3/uL Comprehensive Cache. Panel Fa st Reviewed date:06/07/2024 11:48:38 AM Interpretation: Performing Lab:[facility], [address] [place] [phone] Notes/Report: Sodium 144 135-145 mmol/L Potassium 4.7 3.3-5.1 mmol/L Chloride 108 96-108 mmol/L Carbon Dioxide 27 22-29 mmol/L Anion Gap 14 12-20 Blood Urea Nitrogen 20 9-16 mg/dL Creatinine 0.79 0.5-1.4 mg/dL Estimated Glomerular Filt Rate > 60 NOTE: For -Dutch individuals, multiply the result by 1.210. Chronic [...] Panel Reviewed date:06/07/2024 11:48:38 AM Interpretation: Performing Lab:[facility], [address] [place] [phone] Notes/Report: Triglycerides 66 <150 mg/dL Desirable Triglyceride: [...] Antigen Reviewed date:06/07/2024 11:48:38 AM Interpretation: Performing Lab:[facility], [address] [place] [phone] Notes/Report: Prostate Specific Antigen 1.23 <0.05-4.0 ng/mL PSA methodology: Sheets Alinity i Chemiluminescent Microparticle Immunoassay (CMIA) INR WHOLE BLOOD POC Reviewed date:06/15/2024 08:32:55 AM Interpretation: Performing Lab:[facility], [address] [place] [phone] Notes/Report: PT, INR - Anti Coag Clinic 2.0 0.9-1.1 METER #: [id number] INTERNATIONAL NORMALIZED RATIO (INR) REFERENCE RANGES Reference [...] OC Reviewed date:06/15/2024 08:32:55 AM Interpretation: Performing Lab:[facility], [address] [place] [phone] Notes/Report: Prothrombin Time Whole Bld POC 24.4 11.1-13.5 sec INR WHOLE BLOOD POC Reviewed date:07/16/2024 08:35:52 AM Interpretation: Performing Lab:[facility], [address] [place] [phone] Notes/Report: PT, INR - [facility] Coag [facility] 1.6 0.9-1.1 METER #: [id number] INTERNATIONAL NORMALIZED RATIO (INR) REFERENCE RANGES Reference [...] OC Reviewed date:07/16/2024 08:35:52 AM Interpretation: Performing Lab:[facility], [address] [place] [phone] Notes/Report: Prothrombin Time Whole Bld POC 19.4 11.1-13.5 sec INR WHOLE BLOOD POC Reviewed date:07/23/2024 09:07:49 PM Interpretation: Performing Lab:[facility], [address] [place] [phone] Notes/Report: PT, INR - [facility] Coag [facility] 1.8 0.9-1.1 METER #: [id number] INTERNATIONAL NORMALIZED RATIO (INR) REFERENCE RANGES Reference [...] OC Reviewed date:07/23/2024 09:07:49 PM Interpretation: Performing Lab:[facility], [address] [place] [phone] Notes/Report: Prothrombin Time Whole Bld POC 21.4 11.1-13.5 sec INR WHOLE BLOOD POC Reviewed date:08/06/2024 08:49:39 PM Interpretation: Performing Lab:[address] [phone] Notes/Report: PT, INR - [facility]ag [facility] 2.1 0.9-1.1 METER #: [id number] INTERNATIONAL NORMALIZED RATIO (INR) REFERENCE RANGES Reference [...] OC Reviewed date:08/06/2024 08:49:39 PM Interpretation: Performing Lab:[facility], [address] [place] [phone] Notes/Report: Prothrombin Time Whole Bld POC 25.3 11.1-13.5 sec INR WHOLE BLOOD POC Reviewed date:09/02/2024 06:23:24 AM Interpretation: Performing Lab:[address] [phone] Notes/Report: PT, INR - [facility]ag [facility] 1.6 0.9-1.1 METER #: [id number] INTERNATIONAL NORMALIZED RATIO (INR) REFERENCE RANGES Reference [...] OC Reviewed date:09/02/2024 06:23:24 AM Interpretation: Performing Lab:[facility], [address] [place] [phone] Notes/Report: Prothrombin Time Whole Bld POC 18.8 11.1-13.5 sec INR WHOLE BLOOD POC Reviewed date:09/05/2024 08:45:11 AM Interpretation: Performing Lab:[facility], [address] [place] [phone] Notes/Report: PT, INR - [facility] 2.0 0.9-1.1 METER #: [id number] INTERNATIONAL NORMALIZED RATIO (INR) REFERENCE RANGES Reference [...] OC Reviewed date:09/05/2024 08:45:11 AM Interpretation: Performing Lab:[facility], [address] [place] [phone] Notes/Report: Prothrombin Time Whole Bld POC 24.2 11.1-13.5 sec INR WHOLE BLOOD POC Reviewed date:09/19/2024 09:54:44 AM Interpretation: Performing Lab:[facility], [address] [place] [phone] Notes/Report: PT, INR - [facility] 2.6 0.9-1.1 METER #: [id number] INTERNATIONAL NORMALIZED RATIO (INR) REFERENCE RANGES Reference [...] OC Reviewed date:09/19/2024 09:54:44 AM Interpretation: Performing Lab:[facility], [address] [place] [phone] Notes/Report: Prothrombin Time Whole Bld POC 31.6 11.1-13.5 sec INR WHOLE BLOOD POC Reviewed date:09/24/2024 11:58:00 AM Interpretation: Performing Lab:[facility], [address] [place] [phone] Notes/Report: PT, INR - [facility] 1.8 0.9-1.1 METER #: [id number] INTERNATIONAL NORMALIZED RATIO (INR) REFERENCE RANGES Reference [...] OC Reviewed date:09/24/2024 11:58:00 AM Interpretation: Performing Lab:[facility], [address] [place] [phone] Notes/Report: Prothrombin Time Whole Bld POC 21.8 11.1-13.5 sec Complete Blood Count Auto Di ff Reviewed date:10/04/2024 11:26:43 AM Interpretation: Performing Lab:[facility], [address] [place] [phone] Notes/Report: White Blood Count 10.5 4.8-10.8 X10*3/uL [...] NRBC Abs Auto 0.000 0.0-0.012 X10*3/uL Comprehensive Cache. Panel Fa st Reviewed date:10/04/2024 11:26:43 AM Interpretation: Performing Lab:[facility], [address] [place] [phone] Notes/Report: Sodium 144 135-145 mmol/L Potassium 4.6 [...] Reviewed date:10/04/2024 11:26:43 AM Interpretation: Performing Lab:[address] [phone] Notes/Report: Triglycerides 81 <150 mg/dL Desirable Triglyceride: [...] Reviewed date:10/04/2024 11:26:43 AM Interpretation: Performing Lab:[address] [phone] Notes/Report: PT, INR - Anti Coag Clinic 2.0 0.9-1.1 METER #: [id number] INTERNATIONAL NORMALIZED RATIO (INR) REFERENCE RANGES Reference [...] OC Reviewed date:10/04/2024 11:26:43 AM Interpretation: Performing Lab:[facility], [address] [place] [phone] Notes/Report: Prothrombin Time Whole Bld POC 23.8 11.1-13.5 sec INR WHOLE BLOOD POC Reviewed date:10/19/2024 12:18:43 PM Interpretation: Performing Lab:[facility], [address] [place] [phone] Notes/Report: PT, INR - [facility]ag [facility] 1.7 0.9-1.1 METER #: [id number] INTERNATIONAL NORMALIZED RATIO (INR) REFERENCE RANGES Reference [...] OC Reviewed date:10/19/2024 12:18:43 PM Interpretation: Performing Lab:[facility], [address] [place] [phone] Notes/Report: Prothrombin Time Whole Bld POC 20.9 11.1-13.5 sec INR WHOLE BLOOD POC Reviewed date:10/30/2024 07:56:40 AM Interpretation: Performing Lab:[facility], [address] [place] [phone] Notes/Report: PT, INR - [facility]ag [facility] 2.5 0.9-1.1 METER #: [id number] INTERNATIONAL NORMALIZED RATIO (INR) REFERENCE RANGES Reference [...] OC Reviewed date:10/30/2024 07:56:40 AM Interpretation: Performing Lab:[facility], [address] [place] [phone] Notes/Report: Prothrombin Time Whole Bld POC 30.4 11.1-13.5 sec INR WHOLE BLOOD POC Reviewed date:11/12/2024 08:31:52 PM Interpretation: Performing Lab:[facility], [address] [place] [phone] Notes/Report: PT, INR - Anti Coag Clinic 2.0 0.9-1.1 METER #: [id number] INTERNATIONAL NORMALIZED RATIO (INR) REFERENCE RANGES Reference [...] OC Reviewed date:11/12/2024 08:31:52 PM Interpretation: Performing Lab:[facility], [address] [place] [phone] Notes/Report: Prothrombin Time Whole Bld POC 24.5 11.1-13.5 sec INR WHOLE BLOOD POC Reviewed date:12/01/2024 07:02:07 AM Interpretation: Performing Lab:[facility], [address] [place] [phone] Notes/Report: PT, INR - [facility]ag [facility] 1.8 0.9-1.1 METER #: [id number] INTERNATIONAL NORMALIZED RATIO (INR) REFERENCE RANGES Reference [...] OC Reviewed date:12/01/2024 07:02:07 AM Interpretation: Performing Lab:[facility], [address] [place] [phone] Notes/Report: Prothrombin Time Whole Bld POC 21.1 11.1-13.5 sec INR WHOLE BLOOD POC Reviewed date:12/14/2024 10:11:09 AM Interpretation: Performing Lab:[facility], [address] [place] [phone] Notes/Report: PT, INR - Anti Coag Clinic 2.0 0.9-1.1 METER #: [id number] INTERNATIONAL NORMALIZED RATIO (INR) REFERENCE RANGES Reference [...] OC Reviewed date:12/14/2024 10:11:09 AM Interpretation: Performing Lab:[facility], [address] [place] [phone] Notes/Report: Prothrombin Time Whole Bld POC 24.1 11.1-13.5 sec INR WHOLE BLOOD POC Reviewed date:12/28/2024 09:33:50 AM Interpretation: Performing Lab:[facility], [address] [place] [phone] Notes/Report: PT, INR - Anti Coag Clinic 2.7 0.9-1.1 METER #: [id number] INTERNATIONAL NORMALIZED RATIO (INR) REFERENCE RANGES Reference [...] OC Reviewed date:12/28/2024 09:33:50 AM Interpretation: Performing Lab:[facility], [address] [place] [phone] Notes/Report: Prothrombin Time Whole Bld POC 32.7 11.1-13.5 sec INR WHOLE BLOOD POC Reviewed date:01/19/2025 01:54:32 PM Interpretation: Performing Lab:[facility], [address] [place] [phone] Notes/Report: PT, INR - Anti Coag Clinic 1.6 0.9-1.1 METER #: [id number] INTERNATIONAL NORMALIZED RATIO (INR) REFERENCE RANGES Reference [...] OC Reviewed date:01/19/2025 01:54:32 PM Interpretation: Performing Lab:[address] [phone] Notes/Report: Prothrombin Time Whole Bld POC 18.9 11.1-13.5 sec INR WHOLE BLOOD POC Reviewed date:02/02/2025 03:50:50 PM Interpretation: Performing Lab:[facility], [address] [place] [phone] Notes/Report: PT, INR - Anti Coag Clinic 1.9 0.9-1.1 METER #: [id number] INTERNATIONAL NORMALIZED RATIO (INR) REFERENCE RANGES Reference [...] OC Reviewed date:02/02/2025 03:50:50 PM Interpretation: Performing Lab:[address] [phone] Notes/Report: Prothrombin Time Whole Bld POC 22.4 11.1-13.5 sec Complete Blood Count Auto Di ff Reviewed date:02/09/2025 01:28:09 PM Interpretation: Performing Lab:[facility], [address] [place] [phone] Notes/Report: White Blood Count 10.3 4.8-10.8 X10*3/uL [...] NRBC Abs Auto 0.000 0.0-0.012 X10*3/uL Comprehensive Cache. Panel Fa st Reviewed date:02/09/2025 01:28:09 PM Interpretation: Performing Lab:[facility], [address] [place] [phone] Notes/Report: Sodium 142 135-145 mmol/L Potassium 3.8 [...] Panel Reviewed date:02/09/2025 01:28:09 PM Interpretation: Performing Lab:[address] [address] Notes/Report: Triglycerides 122 <150 mg/dL Desirable Triglyceride: [...] Total Reviewed date:02/09/2025 01:28:09 PM Interpretation: Performing Lab:[address] [address] Notes/Report: Prostate Specific Ag Total 1.5 < OR = 4.0 ng/mL Percent Free Prostate Spec Ag 33 >25 % (calc) PSA(ng/mL) Free PSA(%) Estimated(x) Probability of Cancer(as%) 0-2.5 (*) Approx. 1 2.6-4.0(1) 0-27(2) 24(3) 4.1-10(4) 0-10 56 11-15 28 16-20 20 21-25 16 >or =26 8 >10(+) N/A >50 References:(1)Yi pittman et al.:Urology 60: 469-474 (2001) (2)Alba et al.:J.Urol 168: 922-925 (2001) Free PSA(%) Sensitivity(%) Specificity(%) < or = 25 85 19 < or = 30 93 9 (3)Alba et al.:DEENA 277: 2063-8216 (1996) (4)Catalona et al.:DEENA 279: 1871-1267 (1997) (x)These estimates vary with age, ethnicity, [...] mind. PSA was performed using the Justin Case Immunoassay method. Values obtained from different assay methods cannot be used interchangeably. PSA levels, regardless of value, should not be interpreted as absolute evidence of the presence or absence of disease. THIS TEST WAS PERFORMED AT: [facility] [address] [address] DEJAN CONWAY MD Free Prostate Spec Ag 0.5 INR WHOLE BLOOD POC Reviewed date:02/15/2025 08:16:17 PM Interpretation: Performing Lab:[facility], [address] [place] [phone] Notes/Report: PT, INR - Anti Coag Clinic 2.4 0.9-1.1 METER #: [id number] INTERNATIONAL NORMALIZED RATIO (INR) REFERENCE RANGES Reference [...] OC Reviewed date:02/15/2025 08:16:17 PM Interpretation: Performing Lab:[facility], [address] [place] [phone] Notes/Report: Prothrombin Time Whole Bld POC 28.9 11.1-13.5 sec INR WHOLE BLOOD POC Reviewed date:02/25/2025 01:03:25 PM Interpretation: Performing Lab:[facility], [address] [place] [phone] Notes/Report: PT, INR - Anti Coag Clinic 2.9 0.9-1.1 METER #: [id number] INTERNATIONAL NORMALIZED RATIO (INR) REFERENCE RANGES Reference [...] OC Reviewed date:02/25/2025 01:03:25 PM Interpretation: Performing Lab:[facility], [address] [place] [phone] Notes/Report: Prothrombin Time Whole Bld POC 35.4 11.1-13.[address] thoracic spine wo con Reviewed date:03/13/2025 07:03:37 AM Interpretation: Performing Lab: Notes/Report: [address] [address] [address] Scan Report Signed Patient: Jem Gallardo MR#: [id number] 3 : 1945 Acct:[id number] Age/Sex: 79 / M ADM Date: 03/05/25 Loc: HO.CT Attending Dr: Jose Felder MD Ordering Physician: Jose Felder MD Date of Service: 03/05/25 Procedure(s): CT thoracic spine wo IV con Accession Number(s): [id number] cc: Jose Felder MD Report Number: [id number]: Total DLP = 629.00 mGy-cm CLINICAL HISTORY: thoracic back pain CT thoracic spine without contrast Comparison: CR/SR - XR THORACIC SPINE 3 VIEWS - 02/16/25 10:49 EDT Findings: Vertebral alignment is within normal limits. No acute fractures or dislocations. Multilevel disc space narrowing and endplate osteophyte formation, as well as facet hypertrophy. Moderate airspace opacity within the right upper lobe medially, suggestive of scarring. Lower cervical fusion hardware. Normal upper abdominal contents. IMPRESSION: No acute findings. This document has been electronically signed by: Mandi Moe MD on 03/07/2025 19:14:10 Dictated By: Mandi Moe MD Signed By: <Electronically signed by Mandi Moe MD in OV> 03/07/251914 DD/ 13 TD/TT: 03/07/251913 Finish Repair Worker: [place] [address] CT Scan Report Signed Patient: Jem Gallardo MR#: [id number] 3 : 1945 Acct:[id number] Age/Sex: 79 / M ADM Date: 03/05/25 Loc: HO.CT Attending Dr: Jose Felder MD Ordering Physician: Jose Felder MD Date of Service: 03/05/25 Procedure(s): CT thoracic spine wo IV con Accession Number(s): [id number] cc: Jose Felder MD Report Number: [id number]: Total DLP = 629.00 mGy-cm CLINICAL HISTORY: thoracic back pain CT thoracic spine without contrast Comparison: CR/SR - XR THORACIC SPINE 3 VIEWS - 02/16/25 10:49 EDT Findings: Vertebral alignment is within normal limits. No acute fractures o r dislocations. Multilevel disc spac e narrowing and endplate osteophyte formation, as well as facet hypertrophy. Moderate airspace opacity within the right upper lobe medially, suggestive of scarring. Lower cervical fusion hardware. Normal upper abdomin al contents. IMPRESSION: No acute findings. This document has be en electronically signed by: Mandi Moe MD on 03/07/2025 19:14:10 Dictated By: Mandi Moe MD Signed By: <Electronically signed by Mandi Moe MD in OV> 03/07/251914 DD/ 13 TD/TT: 03/07/251913 Finish Repair Worker: CT cervical spine wo con Reviewed date:03/13/2025 07:03:37 AM Interpretation: Performing Lab: Notes/Report: [address] [address] [address] Scan Report Signed Patient: Jem Gallardo MR#: [id number] 3 : 1945 Acct:[id number] Age/Sex: 79 / M ADM Date: 03/05/25 Loc: HO.CT Attending Dr: Jose Felder MD Ordering Physician: Jose Felder MD Date of Service: 03/05/25 Procedure(s): CT cervical spine wo IV con Accession Number(s): [id number] cc: Jose Felder MD Report Number: [id number]: Total DLP = 990.70 mGy-cm CLINICAL HISTORY: cervical pain CT cervical spine without contrast Comparison: None provided Findings: Vertebral alignment is within normal limits. Multilevel disc space narrowing and endplate osteophyte formation, as well as facet hypertrophy. Anterior fusion hardware at C5-C7. No acute fractures or dislocations. Visualized intracranial contents are unremarkable. No cervical fluid collections or masses. No consolidation or effusion at the lung apices. IMPRESSION: No acute findings. This document has been electronically signed by: Mandi Moe MD on 03/07/2025 18:56:26 Dictated By: Mandi Moe MD Signed By: <Electronically signed by Mandi Moe MD in OV> 03/07/251856 DD/ 55 TD/TT: 03/07/251855 Finish Repair Worker: [address] [address] [address] Scan Report Signed Patient: Jem Gallardo MR#: [id number] 3 : 1945 Acct:[id number] Age/Sex: 79 / M ADM Date: 03/05/25 Loc: HO.CT Attending Dr: Jose Felder MD Ordering Physician: Jose Felder MD Date of Service: 03/05/25 Procedure(s): CT cervical spine wo IV con Accession Number(s): [id number] cc: Jose Felder MD Report Number: [id number]: Total DLP = 990.70 mGy-cm CLINICAL HISTORY: cervical pain CT cervical spine without contrast Comparison: None provided Findings: Vertebral alignment is within normal limits. Multilevel disc spac e narrowing and endplate osteophyte formation, as well as facet hypertrophy. Anterior fusion hardware at C5-C7. No acute fractures o r dislocations. Visualized intracran ial contents are unremarkable. No cervical fluid collections or masses. No consolidation or effusion at the lung apices. IMPRESSION: No acute findings. This document has be en electronically signed by: Mandi Moe MD on 03/07/2025 18:56:26 Dictated By: Mandi Moe MD Signed By: <Electronically signed by Mandi Moe MD in OV> 03/07/251856 DD/ 55 TD/TT: 03/07/251855 Finish Repair Worker: INR WHOLE BLOOD POC Reviewed date:03/13/2025 07:03:37 AM Interpretation: Performing Lab:[facility], [address] [place] [phone] Notes/Report: PT, INR - Anti Coag Clinic 1.8 0.9-1.1 METER #: [id number] INTERNATIONAL NORMALIZED RATIO (INR) REFERENCE RANGES Reference [...] Prothrombin Time Whole Bld P OC Reviewed date:03/13/2025 07:03:37 AM Interpretation: Performing Lab:[facility], [address] [place] [phone] Notes/Report: Prothrombin Time Whole Bld POC 21.6 11.1-13.5 sec INR WHOLE BLOOD POC Reviewed date:03/27/2025 05:06:06 AM Interpretation: Performing Lab:[facility], [address] [place] [phone] Notes/Report: PT, INR - Anti Coag Clinic 2.1 0.9-1.1 METER #: [id number] INTERNATIONAL NORMALIZED RATIO (INR) REFERENCE RANGES Reference [...] Prothrombin Time Whole Bld P OC Reviewed date:03/27/2025 05:06:06 AM Interpretation: Performing Lab:[address] [address] Notes/Report: Prothrombin Time Whole Bld POC 24.9 11.1-13.5 sec INR WHOLE BLOOD POC (Not yet reviewed by provider) Interpretation: Performing Lab:[facility], [address] [place] [phone] Notes/Report: PT, INR - Anti Coag Clinic 2.8 0.9-1.1 METER #: [id number] INTERNATIONAL NORMALIZED RATIO (INR) REFERENCE RANGES Reference [...] (Not yet reviewed by provider) Interpretation: Performing Lab:[facility], [address] [place] [phone] Notes/Report: Prothrombin Time Whole Bld POC 33.5 11.1-13.5 sec Reason For Referral Reason Evaluate and Treat New Lesion of Nose Diagnosis 1 Lesion of nose (J34. 89) Referral Organization Jose Felder III, MD Referring Provider First Name Jose Referring Provider Last Name Bradford Referring Provider Speciality Internal edicine Referred Provider [facility] ([place] Referred Provider Specialty Dermatology General Notes Tamie You 10/18/2024 10:59:17 AM > Referral FaxedKenyatta Amber 01/18/2025 02:35:46 PM > Contacted patient regarding referral. Patient was left a message regarding, Bhavana Salinas CMA 01/19/2025 10:13:49 AM >pt called back stated [...] Referring Provider Speciality Internal edicine Referred Provider [facility], Orthopedic Surgeons Referred Provider Specialty Orthopedic S urgery General Notes Tamie You 01/31/2025 01:54:41 PM > Referral and progress note faxed. Referral Priority Urgent Referral Appointment Date 05/19/2025 Reason eval and treat needs sleep study daytime somnolence Diagnosis 1 Daytime somnolence ( R40.0) Referral Organization Jose Felder III, MD Referring Provider First Name Jose Referring Provider Last Name Felder Referring Provider Speciality Internal edicine Referred Provider [facility], Pulmonology Referred Provider Specialty Pulmonary Edna johnsones General Notes Bhavana Salinas CMA 02/10 09:06:58 AM > ref/demo/progress note/labs faxed to [place] [facility] de[facility] Referral Priority Routine Referral Appointment Date 03/16/2025 Medications Medication SIG (Take, Route, Frequency, Duration) Notes Start Date End Date Status traZODone HCl 50 MG TAKE 1 TABLET BY BRIANNE TH DAILY Active Losartan Potassium 25 MG as directed Ora lly Once a day Active Cyclobenzaprine HCl 5 MG 1 tablet Orally every 8 hours if needed 03/10/2025 Active Warfarin Sodium 5 MG TAKE 1 TABLET BY MO UT ONCE DAILY for 210 Active Meclizine HCl 25 MG 1 or [...] Problem Status W/U Status Risk Notes Problem 5096227 Former smoker (Z87.891) Active confirmed He is highly motivated not to smoke and has a plan to prevent relapse in times of stress or illness. Problem 551664270 Overweight (BMI 25.0-29.9) (E66.3) Active confirmed His body mass index is 27. We discussed diet and nutrition. We reviewed his weight loss strategy. Problem 363724948 Overweight (E66.3) Active confirmed He has gained 7 pounds. His body mass index is 27. We discussed his weight loss strategy. I recommended aggressive weight loss through regular physical activity and diet restricted in calories. Problem 11687358 Hypertension (I10) Active confirmed His blood pressure has been controlled and no change in his regimen was made today. Problem 00584867 Other chronic pain (G89.29) Active confirmed Problem 717478153 Solitary pulmonary nodule (R91.1) Active confirmed Problem 07753123 Cervical radiculopathy (M54.12) Active confirmed Follows vigorous exercise, driving golf balls, and radiates into the side of the neck and the upper back. He is currently using heat and rest Tylenol ibuprofen and massage. If it does not clear quickly he will be given dexamethasone. If necessary MRI imaging of the neck to assess for a herniated disc will be done. Problem 498255906 Environmental allergies (Z91.09) Active confirmed He has noted itching around his eyes and nasal congestion. He is using nbwy-ltl-ryivb er medication. I recommended fluticasone and loratadine. 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 He will be back in the office in the near future to reevaluate this problem. 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 Problem 169358932 DVT (deep venous thrombosis) (I82.409) Active confirmed He has had no blood clots. Problem 668781233 Lung cancer (C34.90) Active confirmed He remains in remission with no relapse. He is no longer smoking. Problem Thoracic back pain (806504613) Thoracic back pain (M54.6) Active confirmed The x-rays showed age related degenerative changes, but no specific cause of the back pain. An MRI is not possible because of the metal plates and his spine. A CT scan of his cervical and thoracic spine has been ordered to evaluate discs and the spinal canal. Problem 9793820 Protein S deficiency (D68.59) Active confirmed He is doing well with his chronic anticoagulatio n. The protein S deficiency is no indication for lifelong therapy. Problem Neck pain (27649485) Cervical pain (neck) (M54.2) Active confirmed He has had neurosurgery in the past on his lower cervical spine leaving him with a metal plate and a . This was done by who is now at [facility]. Problem 94701550 Other depression (F32.89) Active confirmed His medication was increased to 100 mg daily. A follow-up visit was arranged. He has no suicidal ideation and is beginning to experience improvement. Problem 756749760 Benign prostatic hyperplasia, unspecified whether lower urinary tract symptoms present (N40.0) Active confirmed He reports rising from sleep about twice a night to urinate. We have discussed some lifestyle modifications he could make to reduce this nocturia. Problem 601089555 Sensorineural hearing loss (SNHL) of both ears (H90.3) Active confirmed Problem 42505745 Chronic nonintractable headache, unspecified headache type (R51) Active confirmed His headaches are improved. They're less frequent. He will continue on current therapy. Problem Disease caused by Severe acute respiratory syndrome coronavirus 2 (disorder) (950708676) COVID-19 virus infection (U07.1) Active confirmed He has recovered from his collins virus infection with no lung symptoms. Problem 785258349095 Skin lesion of face (L98.9) Active confirmed The area on his nose has the appearance of an actinic keratosis. It has only recently appeared. I have made a referral to dermatology for definitive diagnosis and treatment. Problem 417133351 Recurrent low back pain (M54.50) Active confirmed He will use heat and rest acetaminophen and ibuprofen. He was referred back to pain management. 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 ; Hypertension I10 ; Overweight E66.3 ; Episodic memory loss R41.3 ; Former smoker Z87.891 and Lung cancer C34.90 Jose Felder III, MD [address] [place] [address] [place] [address] 08/23/2024 Jose Felder COVID-19 virus infec tion U07.1 ; 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 ; Former smoker Z87.891 ; Lung cancer C34.90 ; Environmental allergies Z91.09 and Overweight E66.3 Jose Felder III, MD [address] [place] [address] [place] [address] 10/04/2024 Jose BACK-19 virus infec tion U07.1 ; Chronic nonintractable headache, unspecified headache type R51 ; Benign prostatic hyperplasia, unspecified whether lower urinary tract symptoms present N40.0 ; 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 ; Former smoker Z87.891 ; Lung cancer C34.90 ; Environmental allergies Z91.09 ; Overweight (BMI 25.0-29.9) E66.3 ; 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 ; Other depression F32.89 and Overweight E66.3 Jose Felder III, MD [address] [place] [address] [place] [address] 10/15/2024 Jose Felder Skin lesion of face L98.9 ; 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 ; Former smoker Z87.891 ; Lung cancer C34.90 ; Environmental allergies Z91.09 ; Hypertension I10 ; DVT (deep venous thrombosis) I82.409 ; Overweight (BMI 25.0-29.9) E66.3 ; Chronic nonintractable headache, unspecified headache type R51 ; 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 and Other depression F32.89 Jose Felder III, MD [address] [place] [address] [place] [address] 01/27/2025 Jose Felder 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 ; Recurrent low back pain M54.50 ; Former smoker Z87.891 ; Lung cancer C34.90 ; Environmental allergies Z91.09 ; Chronic nonintractable headache, unspecified headache type R51 ; Overweight E66.3 and Benign prostatic hyperplasia, unspecified whether lower urinary tract symptoms present N40.0 Jose Felder III, MD [address] [place] [address] [place] [address] 02/09/2025 Jose Felder Suspected sleep apne a R29.818 ; Labyrinthitis of both ears H83.03 ; 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 ; Lung cancer C34.90 ; Overweight (BMI 25.0-29.9) E66.3 ; DVT (deep venous thrombosis) I82.409 ; Hypertension I10 ; 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 ; Benign prostatic hyperplasia, unspecified whether lower urinary tract symptoms present N40.0 and Former smoker Z87.891 Jose Felder III, MD [address] [place] [address] [place] [address] 02/16/2025 Jose Felder Thoracic back pain M 54.6 ; Former smoker Z87.891 ; Lung cancer C34.90 ; Environmental allergies Z91.09 ; Overweight (BMI 25.0-29.9) E66.3 ; 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 ; Other depression F32.89 and Benign prostatic hyperplasia, unspecified whether lower urinary tract symptoms present N40.0 Jose Felder III, MD [address] [place] [address] [place] [address] 02/24/2025 Jose Felder Thoracic back pain M 54.6 ; Cervical pain (neck) M54.2 ; 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 ; Former smoker Z87.891 ; Lung cancer C34.90 ; Overweight (BMI 25.0-29.9) E66.3 ; Chronic nonintractable headache, unspecified headache type R51 and 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 Jose Felder III, MD [address] [place] [address] [place] [address] 03/10/2025 Jose Felder Former smoker Z87.89 1 ; Cervical radiculopathy M54.12 ; Hypertension I10 ; Lung cancer C34.90 ; 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 ; Overweight (BMI 25.0-29.9) E66.3 ; 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 ; DVT (deep venous thrombosis) I82.409 and Environmental allergies Z91.09 Jose Felder III, MD [address] [place] [address] [place] [address] 03/15/2025 Jose Felder Hypertension I10 ; P ain in thoracic spine M54.6 ; Overweight (BMI 25.0-29.9) E66.3 ; 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 ; Former smoker Z87.891 ; Lung cancer C34.90 and Environmental allergies Z91.09 Jose Felder III, MD [address] [place] [address] [place] [address] 08/23/2024 Jose Felder III, MD [address] [place] [address] [place] [address] 08/31/2024 Jose Felder COVID-19 virus infec tion U07.1 Jose Felder III, MD [address] [place] [address] [place] [address] 08/31/2024 Jose Felder COVID-19 virus infec tion U07.1 Jose Felder III, MD [address] [place] [address] [place] [address] 09/17/2024 Jose Felder III, MD [address] [place] [address] [place] [address] 02/08/2025 Jose Felder III, MD [address] [place] [address] [place] [address] 03/02/2025 Jose Felder Assessments Encounter Date Diagnosis [...] was done by who is now at [facility]. 03/10/2025 Former smoker (ICD-1 0 - Z87.891) He [...] for a herniated disc will be done. 03/15/2025 Hypertension (ICD-10 - I10) His blood pressure has been controlled and no change in his regimen was made today. 03/15/2025 Pain in thoracic spine (ICD-10 - M54.6) The discomfort has almost resolved. He will wait 1 week before resuming his golf. He will telephone or come to the office at the pain relapses. 08/31/2024 COVID-19 virus infection (ICD-10 - U07.1) [...] in remission since he finished his chemotherapy. 03/10/2025 Hypertension (ICD-10 - I10) His blood pressure is stable today. 03/15/2025 Overweight (BMI 25.0-29.9) (ICD-10 - E66.3) His body mass index is 27. We discussed diet and nutrition. We reviewed his weight loss strategy. 06/07/2024 Episodic memory loss (ICD-10 - R41.3) [...] eyes and nasal congestion. He is using wxsp-zkm-cryuigm medication. I recommended fluticasone and loratadine. 02/24/2025 Former smoker (ICD-1 0 - Z87.891) He is highly motivated not to smoke and has a plan to prevent relapse in times of stress or illness. 03/10/2025 Lung cancer (ICD-10 - C34.90) He remains in remission with no relapse. He is no longer smoking. 03/15/2025 Diabetes mellitus type 2 in nonobese (ICD-10 - E11.9) He was continued on current therapy. He will be back in the office in the near future to reevaluate this problem. 06/07/2024 Former smoker (ICD-1 0 - Z87.891) He is highly motivated not to smoke and has a plan to prevent relapse in times of stress or illness. 08/23/2024 Environmental allergies (ICD-10 - Z91.09) He has noted itching around his eyes and nasal congestion. He is using kumh-xoc-tlfiylu medication. I recommended fluticasone and loratadine. 10/04/2024 Former smoker (ICD-1 0 - Z87.891) He is highly motivated not to smoke and has a plan to prevent relapse in times of stress or illness. 10/15/2024 Environmental allergies (ICD-10 - Z91.09) He has noted itching around his eyes and nasal congestion. He is using bfxb-qgp-nrjiimj medication. I recommended fluticasone and loratadine. 01/27/2025 Environmental allergies (ICD-10 - Z91.09) He has noted itching around his eyes and nasal congestion. He is using chih-dox-mzqyirp medication. I recommended fluticasone and loratadine. 02/09/2025 [...] medication. No changes. Regimen was needed today. 03/15/2025 Former smoker (ICD-1 0 - Z87.891) He [...] in calories combined with physical activity. 03/10/2025 Overweight (BMI 25.0-29.9) (ICD-10 - E66.3) He has lost 5 pounds and is still overweight. We discussed diet and nutrition. We made a plan to lose weight at a rate of one half of a pound per week through a diet restricted in calories combined with physical activity. 03/15/2025 Lung cancer (ICD-10 - C34.90) He remains in remission with no relapse. He is no longer smoking. 10/04/2024 Environmental allergies (ICD-10 - Z91.09) He has noted itching around his eyes and nasal congestion. He is using brwt-edm-jygjtuv medication. I recommended fluticasone and loratadine. 10/15/2024 [...] frequent. He will continue on current therapy. 03/10/2025 Protein S deficiency (ICD-10 - D68.59) He is doing well with his chronic anticoagulation. The protein S deficiency is no indication for lifelong therapy. 03/15/2025 Environmental allergies (ICD-10 - Z91.09) He has noted itching around his eyes and nasal congestion. He is using dktu-kdg-xscwuma medication. I recommended fluticasone and loratadine. 10/04/2024 [...] He has had no blood clots. 10/04/2024 Protein S deficiency (ICD-10 - D68.59) [...] he could make to reduce this nocturia. 03/10/2025 Environmental allergies (ICD-10 - Z91.09) He has noted itching around his eyes and nasal congestion. He is using glnm-foe-whihgqb medication. I recommended fluticasone and loratadine. 10/04/2024 Other depression (ICD-10 - F32.89) His [...] C) 11/09/2021 PROFILE, FASTING (COMPREHENSIVE METABOLI C) 03/15/2025 PROFILE, FASTING (COMPREHENSIVE METABOLI C) 01/25/2020 PROFILE, [...] CBC w DIFF 12/09/2022 CBC w DIFF 03/15/2025 CBC w DIFF 09/30/2023 CBC w DIFF 10/30/2020 CBC w DIFF 10/04/2024 CBC w DIFF 11/09/2021 SED RATE (ESR) 03/26/2022 CT THORACIC SPINE NO CONTRAST 02/24/2025 BONE DENSITY DEXA 02/16/2025 CBC WITH AUTO DIFF 06/18/2023 CBC WITH AUTO DIFF 01/27/2024 Lipid Panel 03/15/2025 Lipid Panel 09/30/2023 Lipid Panel 10/04/2024 Lipid Panel 06/18/2023 Lipid Panel 06/07/2024 Lipid Panel 07/11/2021 Lipid Panel 01/27/2025 Lipid Panel 01/27/2024 PSA Free and Total 01/27/2025 INR WHOLE BLOOD POC 04/15/2025 Prothrombin Time Whole Bld POC CT cervical spine wo con 02/24/2025 Next Appt Details Provider Name:Jose Felder, 05/18/2025 10:30:00 AM, [address] [place] [address] , [address], [place], [address], Provider Name:Jose Felder, 10/05/2025 02:30:00 PM, [address] [place] [address] [address], [place], [address], Insurance Providers Payer Name Payer Address Payer Phone Subscriber Number Group Number Insured Name Patient Relationship to Insured Coverage Start Date Coverage End Date [employer] [address] [place], [place] [id number] Jem Gallardo Self - patient is the insured 4 MEDICARE NGS [address] [place] [address] [phone] [id number] Jem Gallardo Self - patient is the insured Medical (General) History Medical History History ICD Code migraine headaches allergies hypertension anal fissure staphylococcal infection 1999 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
--- OUTSIDE RECORDS SUMMARY | 2025-04-15 09:35 | XMS_ITS | Patient Health Record ---
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 Name Role Phone Jose Felder MD Primary Care Provider Unavailab Sharath Hopson Unavailable [phone] Allergies Allergen (clinical drug ingredient) Drug/Non Drug [...] Status Risk Notes Problem Plantar fascial fibromatosis (73834677) Plantar fascial fibromatosis (M72.2) Active confirmed Plan Of Treatment Pending Test Test Name Order Date X ray : Foot, left 3V 06/28/2013 [id number] TENDON SHEATH/LIGAMENT 0 09/08/2013,[id number] TENDON SHEATH/LIGAMENT 0 01/11/2014,[id number] TENDON SHEATH/LIGAMENT 0 10/12/2019 Insurance Providers Payer Name Payer Address Payer Phone Subscriber Number Group Number Insured Name Patient Relationship to Insured Coverage Start Date Coverage End Date Medicare National Govt [employer] [facility] [address] [place] [address] [id number] Jem Gallardo Self - patient is the insured [employer] [address] [place] [address] [id number] Jem Gallardo Self - patient is the [...]
== END 2025-04-15 09:09 | disposition home or self-care (01) ==
LOC: HO.ACS 08:52
PROVIDERS: PCP Internal Medicine Medical Oncology; Visit Provider Internal Medicine Medical Oncology
DX: Z79.01 Long term (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 (principal)

== ENCOUNTER → 2025-04-15 08:52 | Outpatient (BNVA) | payer MEDICARE, SELFPAY | PROVIDERS: PCP Internal Medicine Medical Oncology; Visit Provider Internal Medicine Medical Oncology | DX: Z86.718 Personal history of other venous thrombosis and embolism (principal); Z79.01 Long term (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; Z51.81 Encounter for therapeutic drug level monitoring | CPT/HCPCS: 85610; 99211 ==

== ENCOUNTER 2025-05-06 09:05 | Outpatient (AMB) | payer MEDICARE, SELFPAY ==
--- OUTSIDE RECORDS SUMMARY | 2025-02-16 05:45 | XMS_ITS ---
Author Organization Jose Felder III, MD Address [address] [place] [address] [address] [place] [address] Care Team Providers Care Call Center Support Consultant Name Role Phone Dr. Jose Felder III Primary Care Provider Allergies Allergen (clinical drug ingredient) Drug/Non Drug Allergy documented on EMR Reaction Allergy Type Onset Date Status No Known Drug Allergy Unknown Drug Allergy Active Seasonale Unknown Drug Allergy Active Results Component Value Reference Range Notes Lipid Panel Reviewed date:02/25/2025 01:03:25 PM Interpretation: Performing Lab:[facility], [address] [place] [phone] Notes/Report: Triglycerides 73 <150 mg/dL Desirable Triglyceride: [...] Amylase Reviewed date:02/25/2025 01:03:25 PM Interpretation: Performing Lab:[facility], [address] [place] [address] Notes/Report: Amylase 57 28-100 U/L XR thoracic spine 3V Reviewed date:02/25/2025 01:03:25 PM Interpretation: Performing Lab: Notes/Report: [address] [address] XRay Report Signed Patient: Jem Quinteros MR#: [id number] 3 : 1945 Acct:[id number] Age/Sex: 79 / M ADM Date: 02/16/25 Loc: HO.LAB Attending Dr: Jose Felder MD Ordering Physician: Jose Felder MD Date of Service: 02/16/25 Procedure(s): XR thoracic spine 3V Accession Number(s): [id number] cc: Jose Felder MD EXAMINATION: XR THORACIC [...] 02/16/25 1056 DD/ 1045 TD/TT: 02/16/25 1051 Potato Chip Packaging Machine Operator: [address] [address] XRay Report Signed Patient: Jem Quinteros MR#: [id number] 3 : 1945 Acct:[id number] Age/Sex: 79 / M ADM Date: 02/16/25 Loc: HO.LAB Attending Dr: Jose Felder MD Ordering Physician: Jose Felder MD Date of Service: 02/16/25 Procedure(s): XR thoracic spine 3V Accession Number(s): [id number] cc: Jose Felder MD EXAMINATION: XR THORACIC [...] 02/16/25 1056 DD/ 1045 TD/TT: 02/16/25 1051 Potato Chip Packaging Machine Operator: REASON FOR VISIT Vertigo, Back pain, History [...] Status Risk Notes Problem Thoracic back pain (091118999) Thoracic back pain (M54.6) Active confirmed The [...] Provider Diagnosis Jose Felder III, MD [address] [place] [address] [place] [address] 02/16/2025 Jose Felder Thoracic back pain M54.6 [...] eyes and nasal congestion. He is using qtxw-jnd-fvydrrd medication. I recommended fluticasone and loratadine. 02/16/2025 [...] Reason: O V Provider Name:Jose Felder , 05/18/2025 10:30:00 AM, [address] [place] [address] DR, [address], [place], [address], Provider Name:Jose Felder , 10/05/2025 02:30:00 PM, [address] [place] [address] [address], [place], [address], Progress Notes * Jem QUINTEROSDOB:1945 ( 79 yo M)Acc No.[id number]:02/16/2025 Progress Notes Patient: Jem JI Provider: Annalise Felder MD :1945 A ge:79 Y S ex:Male Date:02/16/2025 Address: [id number] Subjective: * Chief Complaints: * V ertigoBack [...] Findings: Tobacco non-user E x-cigarette smoker 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 Garye l Fast * Collection Date 02/08/2025 10/04/2024 [...] eyes and nasal congestion. He is using yvlh-xmp-bgjlvaa medication. I recommended fluticasone and loratadine. 5 [...] MD Date: 0 02/16/2025 Generated for Frandy mittal/Apple/Rubenitting on: 1 09:28 AM EDT History and Physical Notes * [...]
--- OUTSIDE RECORDS SUMMARY | 2025-02-24 05:00 | XMS_ITS ---
Author Organization Jose Felder III, MD Address [address] [place] [address] [place] [address] Care Team Providers Care Monument Erector Name Role Phone Dr. Jose Felder III Primary Care Provider [phone] Allergies Allergen (clinical drug ingredient) Drug/Non Drug [...] W/U Status Risk Notes Problem Neck pain (47451081) Cervical pain (neck) (M54.2) Active confirmed He has had neurosurgery in the past on his lower cervical spine leaving him with a metal plate and a . This was done by who is now at [facility]. Vital Signs Temperature 98.3 degrees Fahrenheit 02/25/20 25 Blood pressure systolic 119 mm Hg 02/25/20 25 Blood pressure diastolic 74 mm Hg 025 Heart Rate 86 /min 02/24/2025 Height 71 in 02/24/2025 Weight 194 lbs 02/24/2025 BMI 27.05 kg/m2 02/24/2025 Encounters Encounter Location Date Provider Diagnosis Jose Felder III, MD [address] [place] [address] [place] [address] 02/24/2025 Jose Felder Thoracic back pain M [...] was done by who is now at [facility]. 02/24/2025 Chronic lymphoid leukemia (ICD-10 - [...] Weeks, Reason: ov Provider Name:Jose Felder , 05/18/2025 10:30:00 AM, [address] [place] [address] [place], [address], Provider Name:Jose Felder , 10/05/2025 02:30:00 PM, [address] [place] [address] [place], [address], Progress Notes * Jem QUINTEROSDOB:1945 ( 79 yo M)Acc No.[id number]:02/24/2025 Progress Notes Patient: Jem JI Provider: Annalise Felder MD :1945 A ge:79 Y S ex:Male Date:02/24/2025 Address: [address] [id number] Subjective: * Chief Complaints: * T horacic [...] smoker 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 3 . C hronic lymphoid leukemia [...] MD Date: 0 02/24/2025 Generated for Frandy mittal/Apple/Amauri on: 09:29 AM EDT History and Physical Notes * [...] atraumatic, normocep halic EYES: eomi, perrla, anicte miek, conjugate EARS: normal NOSE: septum intact NECK/THYROID: [...]
--- OUTSIDE RECORDS SUMMARY | 2025-03-02 06:06 | XMS_ITS ---
Author Organization Jose Felder III, MD Address [address] [place] [address] [address] [place] [address] Care Team Providers Care Technical Project Coordinator Name Role Phone Dr. Jose Felder III Primary Care Provider REASON FOR VISIT needs medical records Social History Sex Assigned At : Social History Observation Description Sex Assigned At Male Encounters Encounter Location Date Provider Diagnosis Jose Felder III, MD [address] [place] [address] [place] [address] 03/02/2025 Jose Felder Plan Of Treatment Next Appt Details Provider Name:Jose Felder , 05/18/2025 10:30:00 AM, [address] [place] [address] [place], [address], Provider Name:Jose Felder , 10/05/2025 02:30:00 PM, [address] [place] [address] [place], [address], Progress Notes * Jem QUINTEROSDOB:1945 ( 79 yo M)Acc No.[id number]:03/02/2025 Patient: Jem JI :1945 A ge:79 Y S ex:Male Address:[address] [place] [address] * true * Date: Generated for Frandy mittal/Apple/Amauri on: 1 09:29 AM EDT
--- OUTSIDE RECORDS SUMMARY | 2025-03-10 05:30 | XMS_ITS ---
Author Organization Jose Felder III, MD Address [address] [place] [address] [place] [address] Care Team Providers Care Air Intercept Controller Name Role Phone Dr. Jose Felder III [...] Problem Status W/U Status Risk Notes Problem [id number] Sensorineural hearing loss (SNHL) of both ears (H90.3) Active confirmed Problem 253702203 Diabetes mellitus type 2 in nonobese (E11.9) Active confirmed He was continued on current therapy. He will be back in the office in the near future to reevaluate this problem. Problem 18801117 Cervical radiculopathy (M54.12) Active confirmed Follows vigorous exercise, driving golf balls, and radiates into the side of the neck and the upper back. He is currently using heat and rest Tylenol ibuprofen and massage. If it does not clear quickly he will be given dexamethasone . If necessary MRI imaging of the neck [...] Date Provider Diagnosis Jose Felder III, MD [address] [place] [address] [place] [address] 03/10/2025 Jose Felder Former smoker Z87.89 1 [...] eyes and nasal congestion. He is using jnop-gyh-oejqguf medication. I recommended fluticasone and loratadine. 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 He is using qsvp-vxm-fbsetha medication. I recommended fluticasone and loratadine. Plan: [...] MD Date: 0 03/10/2025 Generated for Frandy mittal/Apple/Rubenitting on: 1 09:28 [...]
--- OUTSIDE RECORDS SUMMARY | 2025-03-15 05:00 | XMS_ITS ---
Author Organization Jose Felder III, MD Address [address] [place] [address] [place] [address] Care Team Providers Care Senior Policy Advisor Name Role Phone Dr. Jose Felder III [...] Provider Diagnosis Jose Felder III, MD [address] [place] [address] [place] [address] 03/15/2025 Jose Felder Hypertension I10 ; P [...] eyes and nasal congestion. He is using zhni-ynu-xruuxbt medication. I recommended fluticasone and loratadine. Plan [...] Months, Reason: OV Provider Name:Jose Felder , 05/18/2025 10:30:00 AM, [address] [place] [address] [address], [place], [address], Provider Name:Jose Felder , 10/05/2025 02:30:00 PM, [address] [place] [address] [address], [place], [address], Progress Notes * Jem QUINTEROSDOB:1945 ( 80 yo M)Acc No.[id number]:03/15/2025 Patient: Jem JI Provider: Annalise Felder MD :1945 A ge:80 Y S ex:Male Date:03/15/2025 Address:[address] [id number] Subjective: * Chief Complaints: * T horacic [...] of provider rendering services: { ...} 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 He is using gdju-nrt-cemsela medication. I recommended fluticasone and loratadine. Plan: [...] MD Date: 0 03/15/2025 Generated for Frandy mittal/Apple/Rubenitting on: 1 09:29 AM EDT History and Physical Notes * HPI (History of Present Illness) Category Sub-Category Detail Notes Telehealth Location of [facility] rendering services:: {...} [address] [facility] [address] [place] [address] Location of patient:: address listed in demographics [...]
[2025-05-06 09:10] LABS: Prothrombin Time Whole Bld POC 39.1 sec (11.1-13.5); ~PT, ~INR - Anti Coag Clinic 3.3 (0.9-1.1)
--- NOTE | 2025-05-06 09:14 | MHC.OFFVISCO ---
Intake Intake Visit Reasons: Anticoagulation Allergies Seasonal Allergies Allergy (Intermediate, Verified 05/06/25 09:06) Cough venlafaxine Adverse Reaction (Intermediate, Verified 05/06/25 09:06) Headache Medication List - Last Reconciled 05/06/25 by Razia López RN cyclobenzaprine 5 mg PO TID PRN losartan 25 mg PO DAILY simvastatin 40 mg PO DAILY sumatriptan succinate 100 mg PO PRN trazodone 50 mg PO DAILY vitamin B complex PO [VITAMIN D 3 PO] warfarin 5 mg See Protocol PO DAILY Nursing Note INR: 3.3 ?out of therapeutic range of 2-3 Medications and supplements reviewed Patient status: feels well Medications or supplements: no changes Diet: usual diet for pt Denies any signs and symptoms of bleeding or clotting or unusual bruising Bleeding, bruising, clotting discussed Nutritional guidance given: to have a serving of greens today Dose: decrease today's dose to 2.5mg (5mg) then 7.5mg X 4 days and 5mg X 3 days (M/W/F) F/U INR Date: 4 weeks?? Patient verbalizing understanding of instructions given. Anti-Coag Initial Assessment Social Hx Patient Tobacco Use Status: Former Tobacco user Tobacco use type: Cigar alcohol intake: never Coding Level of Care Code Est Patient Level 1 Diagnoses Current use of anticoagulant therapy Z79.01 Results AMB INR Fingerstick AMB INR Fingerstick 3.3 Last Edit by Razia López RN on 05/06/25 09:10 interface delay Assessment & Plan Assessment & Plan (1) Current use of anticoagulant therapy: Code(s): Z79.01 - correction (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
--- OUTSIDE RECORDS SUMMARY | 2025-05-06 09:29 | XMS_ITS | Patient Health Record ---
Author Organization Jose Felder III, MD Address [address] [place] [address] Care Team Providers Care Inspector Receiving Name Role Phone Dr. Jose Felder III [...] Panel Reviewed date:02/25/2025 01:03:25 PM Interpretation: Performing Lab:[facility], [address] [place] [phone] Notes/Report: Triglycerides 73 <150 mg/dL Desirable Triglyceride: [...] Amylase Reviewed date:02/25/2025 01:03:25 PM Interpretation: Performing Lab:[facility], [address] [place] [phone] Notes/Report: Amylase 57 28-100 U/L XR thoracic spine 3V Reviewed date:02/25/2025 01:03:25 PM Interpretation: Performing Lab: Notes/Report: [address] [address] XRay Report Signed Patient: Jem Gallardo MR#: [id number] 3 : 1945 Acct:[id number] Age/Sex: 79 / M ADM Date: 02/16/25 Loc: HO.LAB Attending Dr: Jose Felder MD Ordering Physician: Jose Felder MD Date of Service: 02/16/25 Procedure(s): XR thoracic spine 3V Accession Number(s): [id number] cc: Jose Felder MD EXAMINATION: XR THORACIC [...] 02/16/25 1056 DD/ 1045 TD/TT: 02/16/25 1051 [employer] Technician: [address] [address] XRay Report Signed Patient: Jem Gallardo MR#: [id number] 3 : 1945 Acct:[id number] Age/Sex: 79 / M ADM Date: 02/16/25 Loc: HO.LAB Attending Dr: Jose Felder MD Ordering Physician: Jose Felder MD Date of Service: 02/16/25 Procedure(s): XR thoracic spine 3V Accession Number(s): [id number] cc: Jose Felder MD EXAMINATION: XR THORACIC [...] 02/16/25 1056 DD/ 1045 TD/TT: 02/16/25 1051 [employer] Technician: ALEXANDRA WHOLE BLOOD POC Reviewed date:05/18/2024 11:38:32 AM Interpretation: Performing Lab:[facility], [address] [place] [phone] Notes/Report: PT, INR - Anti Coag Clinic 2.1 0.9-1.1 METER #: [id number] INTERNATIONAL NORMALIZED RATIO (INR) REFERENCE RANGES Reference [...] OC Reviewed date:05/18/2024 11:38:32 AM Interpretation: Performing Lab:[facility], [address] [place] [phone] Notes/Report: Prothrombin Time Whole Bld POC 25.7 11.1-13.5 sec Complete Blood Count Auto Di ff Reviewed date:06/07/2024 11:48:38 AM Interpretation: Performing Lab:[facility], [address] [place] [phone] Notes/Report: White Blood Count 9.5 4.8-10.8 X10*3/uL [...] Abs Auto 0.000 0.0-0.012 X10*3/uL Comprehensive [place]. Panel Fa st Reviewed date:06/07/2024 11:48:38 AM Interpretation: Performing Lab:[facility], [address] [place] [phone] Notes/Report: Sodium 144 135-145 mmol/L Potassium 4.7 3.3-5.1 mmol/L Chloride 108 96-108 mmol/L Carbon Dioxide 27 22-29 mmol/L Anion Gap 14 12-20 Blood Urea Nitrogen 20 9-16 mg/dL Creatinine 0.79 0.5-1.4 mg/dL Estimated Glomerular Filt Rate > 60 NOTE: For -Citizen Of [place] individuals, multiply the result by 1.210. Chronic [...] Panel Reviewed date:06/07/2024 11:48:38 AM Interpretation: Performing Lab:[facility], [address] [place] [phone] Notes/Report: Triglycerides 66 <150 mg/dL Desirable Triglyceride: [...] Antigen Reviewed date:06/07/2024 11:48:38 AM Interpretation: Performing Lab:[facility], [address] [place] [phone] Notes/Report: Prostate Specific Antigen 1.23 <0.05-4.0 ng/mL PSA methodology: Sheets Alinity i Chemiluminescent Microparticle Immunoassay (CMIA) INR WHOLE BLOOD POC Reviewed date:06/15/2024 08:32:55 AM Interpretation: Performing Lab:[facility], [address] [place] [phone] Notes/Report: PT, INR - Anti Coag Clinic 2.0 0.9-1.1 METER #: [id number] INTERNATIONAL NORMALIZED RATIO (INR) REFERENCE RANGES Reference [...] OC Reviewed date:06/15/2024 08:32:55 AM Interpretation: Performing Lab:[facility], [address] [place] [phone] Notes/Report: Prothrombin Time Whole Bld POC 24.4 11.1-13.5 sec INR WHOLE BLOOD POC Reviewed date:07/16/2024 08:35:52 AM Interpretation: Performing Lab:[facility], [address] [place] [phone] Notes/Report: PT, INR - Anti Coag Clinic 1.6 0.9-1.1 METER #: [id number] INTERNATIONAL NORMALIZED RATIO (INR) REFERENCE RANGES Reference [...] OC Reviewed date:07/16/2024 08:35:52 AM Interpretation: Performing Lab:[facility], [address] [place] [phone] Notes/Report: Prothrombin Time Whole Bld POC 19.4 11.1-13.5 sec INR WHOLE BLOOD POC Reviewed date:07/23/2024 09:07:49 PM Interpretation: Performing Lab:[facility], [address] [place] [phone] Notes/Report: PT, INR - Anti Coag Clinic 1.8 0.9-1.1 METER #: [id number] INTERNATIONAL NORMALIZED RATIO (INR) REFERENCE RANGES Reference [...] OC Reviewed date:07/23/2024 09:07:49 PM Interpretation: Performing Lab:[facility], [address] [place] [phone] Notes/Report: Prothrombin Time Whole Bld POC 21.4 11.1-13.5 sec INR WHOLE BLOOD POC Reviewed date:08/06/2024 08:49:39 PM Interpretation: Performing Lab:[facility], [address] [place] [phone] Notes/Report: PT, INR - Anti Coag Clinic 2.1 0.9-1.1 METER #: [id number] INTERNATIONAL NORMALIZED RATIO (INR) REFERENCE RANGES Reference [...] OC Reviewed date:08/06/2024 08:49:39 PM Interpretation: Performing Lab:[facility], [address] [place] [phone] Notes/Report: Prothrombin Time Whole Bld POC 25.3 11.1-13.5 sec INR WHOLE BLOOD POC Reviewed date:09/02/2024 06:23:24 AM Interpretation: Performing Lab:[facility], [address] [place] [phone] Notes/Report: PT, INR - Anti Coag Clinic 1.6 0.9-1.1 METER #: [id number] INTERNATIONAL NORMALIZED RATIO (INR) REFERENCE RANGES Reference [...] OC Reviewed date:09/02/2024 06:23:24 AM Interpretation: Performing Lab:[facility], [address] [place] [phone] Notes/Report: Prothrombin Time Whole Bld POC 18.8 11.1-13.5 sec INR WHOLE BLOOD POC Reviewed date:09/05/2024 08:45:11 AM Interpretation: Performing Lab:[address] [phone] Notes/Report: PT, INR - Anti Coag Clinic 2.0 0.9-1.1 METER #: [id number] INTERNATIONAL NORMALIZED RATIO (INR) REFERENCE RANGES Reference [...] OC Reviewed date:09/05/2024 08:45:11 AM Interpretation: Performing Lab:[facility], [address] [place] [phone] Notes/Report: Prothrombin Time Whole Bld POC 24.2 11.1-13.5 sec INR WHOLE BLOOD POC Reviewed date:09/19/2024 09:54:44 AM Interpretation: Performing Lab:[facility], [address] [place] [phone] Notes/Report: PT, INR - Anti Coag Clinic 2.6 0.9-1.1 METER #: [id number] INTERNATIONAL NORMALIZED RATIO (INR) REFERENCE RANGES Reference [...] OC Reviewed date:09/19/2024 09:54:44 AM Interpretation: Performing Lab:[facility], [address] [place] [phone] Notes/Report: Prothrombin Time Whole Bld POC 31.6 11.1-13.5 sec INR WHOLE BLOOD POC Reviewed date:09/24/2024 11:58:00 AM Interpretation: Performing Lab:[facility], [address] [place] [phone] Notes/Report: PT, INR - Anti Coag Clinic 1.8 0.9-1.1 METER #: [id number] INTERNATIONAL NORMALIZED RATIO (INR) REFERENCE RANGES Reference [...] OC Reviewed date:09/24/2024 11:58:00 AM Interpretation: Performing Lab:[facility], [address] [place] [phone] Notes/Report: Prothrombin Time Whole Bld POC 21.8 11.1-13.5 sec Complete Blood Count Auto Di ff Reviewed date:10/04/2024 11:26:43 AM Interpretation: Performing Lab:[facility], [address] [place] [phone] Notes/Report: White Blood Count 10.5 4.8-10.8 X10*3/uL [...] Abs Auto 0.000 0.0-0.012 X10*3/uL Comprehensive [place]. Panel Fa Reviewed date:10/04/2024 11:26:43 AM Interpretation: Performing Lab:[facility], [address] [place] [phone] Notes/Report: Sodium 144 135-145 mmol/L Potassium 4.6 [...] Panel Reviewed date:10/04/2024 11:26:43 AM Interpretation: Performing Lab:[facility], [address] [place] [phone] Notes/Report: Triglycerides 81 <150 mg/dL Desirable Triglyceride: [...] POC Reviewed date:10/04/2024 11:26:43 AM Interpretation: Performing Lab:[facility], [address] [place] [phone] Notes/Report: PT, INR - Anti Coag Clinic 2.0 0.9-1.1 METER #: [id number] INTERNATIONAL NORMALIZED RATIO (INR) REFERENCE RANGES Reference [...] OC Reviewed date:10/04/2024 11:26:43 AM Interpretation: Performing Lab:[facility], [address] [place] [phone] Notes/Report: Prothrombin Time Whole Bld POC 23.8 11.1-13.5 sec INR WHOLE BLOOD POC Reviewed date:10/19/2024 12:18:43 PM Interpretation: Performing Lab:[facility], [address] [place] [phone] Notes/Report: PT, INR - Anti Coag Clinic 1.7 0.9-1.1 METER #: [id number] INTERNATIONAL NORMALIZED RATIO (INR) REFERENCE RANGES Reference [...] OC Reviewed date:10/19/2024 12:18:43 PM Interpretation: Performing Lab:[facility], [address] [place] [phone] Notes/Report: Prothrombin Time Whole Bld POC 20.9 11.1-13.5 sec INR WHOLE BLOOD POC Reviewed date:10/30/2024 07:56:40 AM Interpretation: Performing Lab:[facility], [address] [place] [phone] Notes/Report: PT, INR - Anti Coag Clinic 2.5 0.9-1.1 METER #: [id number] INTERNATIONAL NORMALIZED RATIO (INR) REFERENCE RANGES Reference [...] OC Reviewed date:10/30/2024 07:56:40 AM Interpretation: Performing Lab:[facility], [address] [place] [phone] Notes/Report: Prothrombin Time Whole Bld POC 30.4 11.1-13.5 sec INR WHOLE BLOOD POC Reviewed date:11/12/2024 08:31:52 PM Interpretation: Performing Lab:[facility], [address] [place] [phone] Notes/Report: PT, INR - Anti Coag Clinic 2.0 0.9-1.1 METER #: [id number] INTERNATIONAL NORMALIZED RATIO (INR) REFERENCE RANGES Reference [...] OC Reviewed date:11/12/2024 08:31:52 PM Interpretation: Performing Lab:[facility], [address] [place] [phone] Notes/Report: Prothrombin Time Whole Bld POC 24.5 11.1-13.5 sec INR WHOLE BLOOD POC Reviewed date:12/01/2024 07:02:07 AM Interpretation: Performing Lab:[facility], [address] [place] [phone] Notes/Report: PT, INR - Anti Coag Clinic 1.8 0.9-1.1 METER #: [id number] INTERNATIONAL NORMALIZED RATIO (INR) REFERENCE RANGES Reference [...] OC Reviewed date:12/01/2024 07:02:07 AM Interpretation: Performing Lab:[facility], [address] [place] [phone] Notes/Report: Prothrombin Time Whole Bld POC 21.1 11.1-13.5 sec INR WHOLE BLOOD POC Reviewed date:12/14/2024 10:11:09 AM Interpretation: Performing Lab:[facility], [address] [place] [phone] Notes/Report: PT, INR - Anti Coag Clinic 2.0 0.9-1.1 METER #: [id number] INTERNATIONAL NORMALIZED RATIO (INR) REFERENCE RANGES Reference [...] OC Reviewed date:12/14/2024 10:11:09 AM Interpretation: Performing Lab:[facility], [address] [place] [phone] Notes/Report: Prothrombin Time Whole Bld POC 24.1 11.1-13.5 sec INR WHOLE BLOOD POC Reviewed date:12/28/2024 09:33:50 AM Interpretation: Performing Lab:[facility], [address] [place] [phone] Notes/Report: PT, INR - Anti Coag Clinic 2.7 0.9-1.1 METER #: [id number] INTERNATIONAL NORMALIZED RATIO (INR) REFERENCE RANGES Reference [...] OC Reviewed date:12/28/2024 09:33:50 AM Interpretation: Performing Lab:[facility], [address] [place] [phone] Notes/Report: Prothrombin Time Whole Bld POC 32.7 11.1-13.5 sec INR WHOLE BLOOD POC Reviewed date:01/19/2025 01:54:32 PM Interpretation: Performing Lab:[facility], [address] [place] [phone] Notes/Report: PT, INR - Anti Coag Clinic 1.6 0.9-1.1 METER #: [id number] INTERNATIONAL NORMALIZED RATIO (INR) REFERENCE RANGES Reference [...] OC Reviewed date:01/19/2025 01:54:32 PM Interpretation: Performing Lab:[facility], [address] [place] [phone] Notes/Report: Prothrombin Time Whole Bld POC 18.9 11.1-13.5 sec INR WHOLE BLOOD POC Reviewed date:02/02/2025 03:50:50 PM Interpretation: Performing Lab:[facility], [address] [place] [phone] Notes/Report: PT, INR - Anti Coag Clinic 1.9 0.9-1.1 METER #: [id number] INTERNATIONAL NORMALIZED RATIO (INR) REFERENCE RANGES Reference [...] OC Reviewed date:02/02/2025 03:50:50 PM Interpretation: Performing Lab:[facility], [address] [place] [phone] Notes/Report: Prothrombin Time Whole Bld POC 22.4 11.1-13.5 sec Complete Blood Count Auto Di ff Reviewed date:02/09/2025 01:28:09 PM Interpretation: Performing Lab:[facility], [address] [place] [phone] Notes/Report: White Blood Count 10.3 4.8-10.8 X10*3/uL [...] Abs Auto 0.000 0.0-0.012 X10*3/uL Comprehensive [place]. Panel Fa st Reviewed date:02/09/2025 01:28:09 PM Interpretation: Performing Lab:[address] [address] Notes/Report: Sodium 142 135-145 mmol/L Potassium 3.8 [...] Panel Reviewed date:02/09/2025 01:28:09 PM Interpretation: Performing Lab:[address] [phone] Notes/Report: Triglycerides 122 <150 mg/dL Desirable Triglyceride: [...] Total Reviewed date:02/09/2025 01:28:09 PM Interpretation: Performing Lab:[facility], [address] [place] [phone] Notes/Report: Prostate Specific Ag Total 1.5 < OR = 4.0 ng/mL Percent Free Prostate Spec Ag 33 >25 % (calc) PSA(ng/mL) Free PSA(%) Estimated(x) Probability of Cancer(as%) 0-2.5 (*) Approx. 1 2.6-4.0(1) 0-27(2) 24(3) 4.1-10(4) 0-10 56 11-15 28 16-20 20 21-25 16 >or =26 8 >10(+) N/A >50 References:(1)Yi a et al.:Urology 60: 469-474 (2001) (2)Alba et al.:J.Urol 168: 922-925 (2001) Free PSA(%) Sensitivity(%) Specificity(%) < or = 25 85 19 < or = 30 93 9 (3)Catalona et al.:DEENA 277: 6814-6099 (1996) (4)Catalona et al.:DEENA 279: 4023-8294 (1997) (x)These estimates vary with age, ethnicity, [...] of disease. THIS TEST WAS PERFORMED AT: [facility] [address] [place] [phone] DEJAN CONWAY MD Free Prostate Spec Ag 0.5 INR WHOLE BLOOD POC Reviewed date:02/15/2025 08:16:17 PM Interpretation: Performing Lab:[facility], [address] [place] [phone] Notes/Report: PT, INR - Anti Coag Clinic 2.4 0.9-1.1 METER #: [id number] INTERNATIONAL NORMALIZED RATIO (INR) REFERENCE RANGES Reference [...] OC Reviewed date:02/15/2025 08:16:17 PM Interpretation: Performing Lab:[facility], [address] [place] [phone] Notes/Report: Prothrombin Time Whole Bld POC 28.9 11.1-13.5 sec INR WHOLE BLOOD POC Reviewed date:02/25/2025 01:03:25 PM Interpretation: Performing Lab:[facility], [address] [place] [phone] Notes/Report: PT, INR - Anti Coag Clinic 2.9 0.9-1.1 METER #: [id number] INTERNATIONAL NORMALIZED RATIO (INR) REFERENCE RANGES Reference [...] OC Reviewed date:02/25/2025 01:03:25 PM Interpretation: Performing Lab:[facility], [address] [place] [phone] Notes/Report: Prothrombin Time Whole Bld POC 35.4 11.1-13.[address] thoracic spine wo con Reviewed date:03/13/2025 07:03:37 AM Interpretation: Performing Lab: Notes/Report: [address] [address] [address] Scan Report Signed Patient: Jem Gallardo MR#: [id number] 3 : 1945 Acct:[id number] Age/Sex: 79 / M ADM Date: 03/05/25 Loc: HO.CT Attending Dr: Jose Felder MD Ordering Physician: Jose Felder MD Date of Service: 03/05/25 Procedure(s): CT thoracic spine wo IV con Accession Number(s): [id number] cc: Jose Felder MD Report Number: [id number]: Total DLP = 629.00 mGy-cm CLINICAL HISTORY: [...] in OV> 03/07/251914 DD/ 13 TD/TT: 03/07/251913 [employer] Technician: [address] [address] [address] Scan Report Signed Patient: Jem Gallardo MR#: [id number] 3 : 1945 Acct:[id number] Age/Sex: 79 / M ADM Date: 03/05/25 Loc: HO.CT Attending Dr: Jose Felder MD Ordering Physician: Jose Felder MD Date of Service: 03/05/25 Procedure(s): CT thoracic spine wo IV con Accession Number(s): [id number] cc: Jose Felder MD Report Number: [id number]: Total DLP = 629.00 mGy-cm CLINICAL HISTORY: [...] in OV> 03/07/251914 DD/ 13 TD/TT: 03/07/251913 [employer] Technician: CT cervical spine wo con Reviewed date:03/13/2025 07:03:37 AM Interpretation: Performing Lab: Notes/Report: [address] [address] [address] Scan Report Signed Patient: Jem Gallardo MR#: [id number] 3 : 1945 Acct:[id number] Age/Sex: 79 / M ADM Date: 03/05/25 Loc: HO.CT Attending Dr: Jose Felder MD Ordering Physician: Jose Felder MD Date of Service: 03/05/25 Procedure(s): CT cervical spine wo IV con Accession Number(s): [id number] cc: Jose Felder MD Report Number: [id number]: Total DLP = 990.70 mGy-cm CLINICAL HISTORY: [...] in OV> 03/07/251856 DD/ 55 TD/TT: 03/07/251855 [employer] Technician: [place] [address] [address] Scan Report Signed Patient: Jem Gallardo MR#: [id number] 3 : 1945 Acct:[id number] Age/Sex: 79 / M ADM Date: 03/05/25 Loc: HO.CT Attending Dr: Jose Felder MD Ordering Physician: Jose Felder MD Date of Service: 03/05/25 Procedure(s): CT cervical spine wo IV con Accession Number(s): [id number] cc: Jose Felder MD Report Number: [id number]: Total DLP = 990.70 mGy-cm CLINICAL HISTORY: [...] in OV> 03/07/251856 DD/ 55 TD/TT: 03/07/251855 [employer] Technician: INR WHOLE BLOOD POC Reviewed date:03/13/2025 07:03:37 AM Interpretation: Performing Lab:[facility], [address] [place] [phone] Notes/Report: PT, INR - Anti Coag Clinic 1.8 0.9-1.1 METER #: [id number] INTERNATIONAL NORMALIZED RATIO (INR) REFERENCE RANGES Reference [...] OC Reviewed date:03/13/2025 07:03:37 AM Interpretation: Performing Lab:[facility], [address] [place] [phone] Notes/Report: Prothrombin Time Whole Bld POC 21.6 11.1-13.5 sec INR WHOLE BLOOD POC Reviewed date:03/27/2025 05:06:06 AM Interpretation: Performing Lab:[facility], [address] [place] [phone] Notes/Report: PT, INR - Anti Coag Clinic 2.1 0.9-1.1 METER #: [id number] INTERNATIONAL NORMALIZED RATIO (INR) REFERENCE RANGES Reference [...] OC Reviewed date:03/27/2025 05:06:06 AM Interpretation: Performing Lab:[facility], [address] [place] [phone] Notes/Report: Prothrombin Time Whole Bld POC 24.9 11.1-13.5 sec INR WHOLE BLOOD POC Reviewed date:04/16/2025 07:53:07 PM Interpretation: Performing Lab:[facility], [address] [place] [phone] Notes/Report: PT, INR - Anti Coag Clinic 2.8 0.9-1.1 METER #: [id number] INTERNATIONAL NORMALIZED RATIO (INR) REFERENCE RANGES Reference [...] Prothrombin Time Whole Bld P OC Reviewed date:04/16/2025 07:53:07 PM Interpretation: Performing Lab:[facility], [address] [place] [phone] Notes/Report: Prothrombin Time Whole Bld POC 33.5 11.1-13.5 sec INR WHOLE BLOOD POC (Not yet reviewed by provider) Interpretation: Performing Lab:[facility], [address] [place] [phone] Notes/Report: PT, INR - Anti Coag Clinic 3.3 0.9-1.1 METER #: [id number] INTERNATIONAL NORMALIZED RATIO (INR) REFERENCE RANGES Reference [...] (Not yet reviewed by provider) Interpretation: Performing Lab:[facility], [address] [place] [phone] Notes/Report: Prothrombin Time Whole Bld POC 39.1 11.1-13.5 sec Reason For Referral Reason Evaluate and Treat New Lesion of Nose Diagnosis 1 Lesion of nose (J34. 89) Referral Organization Jose Felder III, MD Referring Provider First Name Jose Referring Provider Last Name Bradford Referring Provider Speciality Internal edicine Referred Provider [facility] [place] ([place] Referred Provider Specialty Dermatology General Notes Tamie [...] Referring Provider Speciality Internal edicine Referred Provider [facility], Orthopedic Surgeons Referred Provider Specialty [...] Referring Provider Speciality Internal edicine Referred Provider [facility], Pulmonology Referred Provider Specialty Pulmonary Edna [facility] General Notes Bhavana Salinas CMA 02/10 09:06:58 AM > ref/demo/progress note/labs faxed to [place] pulmonary dept Referral Priority Routine Referral Appointment Date 03/16/2025 Medications Medication SIG (Take, Route, Frequency, Duration) Notes Start Date End Date Status Simvastatin 40 MG TAKE 1 TABLET BY BRIANNE TH DAILY for 90 Active Losartan Potassium 25 MG TAKE 1 TABLET B Y MOUTH EVERY DAY for 90 Active traZODone HCl 50 MG TAKE 1 TABLET BY BRIANNE TH DAILY Active Cyclobenzaprine HCl 5 MG 1 tablet Orally every 8 hours if needed 03/10/2025 Active Warfarin Sodium 5 MG TAKE 1 TABLET BY MO UTH ONCE DAILY for 210 Active Meclizine HCl [...] Problem Status W/U Status Risk Notes Problem 7188942 Former smoker (Z87.891) Active confirmed He is highly motivated not to smoke and has a plan to prevent relapse in times of stress or illness. Problem 428270374 Overweight (BMI 25.0-29.9) (E66.3) Active confirmed His body mass index is 27. We discussed diet and nutrition. We reviewed his weight loss strategy. Problem 414517249 Overweight (E66.3) Active confirmed He has gained 7 pounds. His body mass index is 27. We discussed his weight loss strategy. I recommended aggressive weight loss through regular physical activity and diet restricted in calories. Problem 69325677 Hypertension (I10) Active confirmed His blood pressure has been controlled and no change in his regimen was made today. Problem 24447588 Other chronic pain (G89.29) Active confirmed Problem 576519063 Solitary pulmonary nodule (R91.1) Active confirmed Problem 46974651 Cervical radiculopathy (M54.12) Active confirmed Follows vigorous exercise, driving golf balls, and radiates into the side of the neck and the upper back. He is currently using heat and rest Tylenol ibuprofen and massage. If it does not clear quickly he will be given dexamethasone. If necessary MRI imaging of the neck to assess for a herniated disc will be done. Problem 908913172 Environmental allergies (Z91.09) Active confirmed He has noted itching around his eyes and nasal congestion. He is using iibt-nks-exhmt er medication. I recommended fluticasone and loratadine. Problem 069025366 Diabetes mellitus type 2 in nonobese (E11.9) Active confirmed He was continued on current therapy. He will be back in the office in the near future to reevaluate this problem. 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 Problem 439608332 DVT (deep venous thrombosis) (I82.409) Active confirmed He has had no blood clots. Problem 276035447 Lung cancer (C34.90) Active confirmed He remains in remission with no relapse. He is no longer smoking. Problem Thoracic back pain (547314692) Thoracic back pain (M54.6) Active confirmed The x-rays showed age related degenerative changes, but no specific cause of the back pain. An MRI is not possible because of the metal plates and his spine. A CT scan of his cervical and thoracic spine has been ordered to evaluate discs and the spinal canal. Problem 5013897 Protein S deficiency (D68.59) Active confirmed He is doing well with his chronic anticoagulatio n. The protein S deficiency is no indication for lifelong therapy. Problem Neck pain (62893823) Cervical pain (neck) (M54.2) Active confirmed He has had neurosurgery in the past on his lower cervical spine leaving him with a metal plate and a . This was done by who is now at [facility]. Problem [id number] Other depression (F32.89) Active confirmed His medication was increased to 100 mg daily. A follow-up visit was arranged. He has no suicidal ideation and is beginning to experience improvement. Problem [id number] Benign prostatic hyperplasia, unspecified whether lower urinary tract symptoms present (N40.0) Active confirmed He reports rising from sleep about twice a night to urinate. We have discussed some lifestyle modifications he could make to reduce this nocturia. 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 They're less frequent. He will continue on current therapy. Problem Disease caused by Severe acute respiratory syndrome coronavirus 2 (disorder) (817527416) COVID-19 virus infection (U07.1) Active confirmed He has recovered from his collins virus infection with no lung symptoms. Problem [id number] Skin lesion of face (L98.9) Active confirmed The area on his nose has the appearance of an actinic keratosis. It has only recently appeared. I have made a referral to dermatology for definitive diagnosis and treatment. Problem [id number] Recurrent low back pain (M54.50) Active confirmed [...] Date Provider Diagnosis Jose Felder III, MD [address] [place] [address] [address] [place] [phone] 06/07/2024 Jose Felder 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 ; Hypertension I10 ; Overweight E66.3 ; Episodic memory loss R41.3 ; Former smoker Z87.891 and Lung cancer C34.90 Jose Felder III, MD [address] [place] [address] [place] [id number] 08/23/2024 Jose Felder COVID-19 virus infec tion U07.1 ; 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 ; Former smoker Z87.891 ; Lung cancer C34.90 ; Environmental allergies Z91.09 and Overweight E66.3 Jose Felder III, MD [address] [place] [address] [place] [id number] 10/04/2024 Jose Felder COVID-19 virus infec tion [...] and Overweight E66.3 Jose Felder III, MD [address] [place] [address] [place] [id number] 10/15/2024 Jose Felder Skin lesion of face L98.9 ; 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 ; Former smoker Z87.891 ; Lung cancer C34.90 ; Environmental allergies Z91.09 ; Hypertension I10 ; DVT (deep venous thrombosis) I82.409 ; Overweight (BMI 25.0-29.9) E66.3 ; Chronic nonintractable headache, unspecified headache type R51 ; 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 and Other depression F32.89 Jose Felder III, MD [address] [place] [address] [place] [phone] 01/27/2025 Jose Felder 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 ; Recurrent low back pain M54.50 ; Former smoker Z87.891 ; Lung cancer C34.90 ; Environmental allergies Z91.09 ; Chronic nonintractable headache, unspecified headache type R51 ; Overweight E66.3 and Benign prostatic hyperplasia, unspecified whether lower urinary tract symptoms present N40.0 Jose Felder III, MD [address] [place] [address] [place] [address] 02/09/2025 Jose Felder Suspected sleep apne a R29.818 ; Labyrinthitis of both ears 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 ; 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 ; Lung cancer C34.90 ; Overweight (BMI 25.0-29.9) E66.3 ; DVT (deep venous thrombosis) I82.409 ; Hypertension I10 ; 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 ; Benign prostatic hyperplasia, unspecified whether lower urinary tract symptoms present N40.0 and Former smoker Z87.891 Jose Felder III, MD [address] [place] [address] [place] [id number] 02/16/2025 Jose Felder Thoracic back pain M 54.6 ; Former smoker Z87.891 ; Lung cancer C34.90 ; Environmental allergies Z91.09 ; Overweight (BMI 25.0-29.9) E66.3 ; 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 ; Other depression F32.89 and Benign prostatic hyperplasia, unspecified whether lower urinary tract symptoms present N40.0 Jose Felder III, MD [address] [place] [address] [place] [id number] 02/24/2025 Jose Felder Thoracic back pain M 54.6 ; Cervical pain (neck) M54.2 ; 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 ; Former smoker Z87.891 ; Lung cancer C34.90 ; Overweight (BMI 25.0-29.9) E66.3 ; Chronic nonintractable headache, unspecified headache type R51 and 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 Jose Felder III, MD [address] [place] [address] [place] [address] 03/10/2025 Jose Felder Former smoker Z87.89 1 ; Cervical radiculopathy M54.12 ; Hypertension I10 ; Lung cancer C34.90 ; 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 ; Overweight (BMI 25.0-29.9) E66.3 ; 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 ; DVT (deep venous thrombosis) I82.409 and Environmental allergies Z91.09 Jose Felder III, MD [address] [place] [address] [place] [id number] 03/15/2025 Jose Felder Hypertension I10 ; P ain in thoracic spine M54.6 ; Overweight (BMI 25.0-29.9) E66.3 ; 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 ; Former smoker Z87.891 ; Lung cancer C34.90 and Environmental allergies Z91.09 Jose Felder III, MD [address] [place] [address] [place] [id number] 08/23/2024 Jose Felder III, MD [address] [place] [address] [place] [id number] 08/31/2024 Jose Felder COVID-19 virus infec tion U07.1 Jose Felder III, MD [address] [place] [address] [place] [phone] 08/31/2024 Jose Felder COVID-19 virus infec tion U07.1 Jose Felder III, MD [address] [place] [address] [place] [phone] 09/17/2024 Jose Felder III, MD [address] [place] [address] [place] [address] 02/08/2025 Jose Felder III, MD [address] [place] [address] [place] [address] 03/02/2025 Jsoe Felder Assessments Encounter Date Diagnosis (ICD Code) [...] was done by who is now at [facility]. 03/10/2025 Former smoker (ICD-1 0 - [...] eyes and nasal congestion. He is using fqgx-owy-rwhbxyp medication. I recommended fluticasone and loratadine. 02/24/2025 [...] eyes and nasal congestion. He is using fevt-xft-olusdsr medication. I recommended fluticasone and loratadine. 10/04/2024 Former smoker (ICD-1 0 - Z87.891) He is highly motivated not to smoke and has a plan to prevent relapse in times of stress or illness. 10/15/2024 Environmental allergies (ICD-10 - Z91.09) He has noted itching around his eyes and nasal congestion. He is using oonp-rrc-wqcoqql medication. I recommended fluticasone and loratadine. 01/27/2025 Environmental allergies (ICD-10 - Z91.09) He has noted itching around his eyes and nasal congestion. He is using qvwv-bek-hrzqrkh medication. I recommended fluticasone and loratadine. 02/09/2025 [...] eyes and nasal congestion. He is using bpke-vea-lsyfupn medication. I recommended fluticasone and loratadine. 10/15/2024 [...] eyes and nasal congestion. He is using vgjk-rqd-yksbwai medication. I recommended fluticasone and loratadine. 10/04/2024 [...] eyes and nasal congestion. He is using axlo-qxk-zkhszwx medication. I recommended fluticasone and loratadine. 10/04/2024 [...] Order Date PROFILE, FASTING (COMPREHENSIVE METABOLI C) 02/26/2021 PROFILE, FASTING (COMPREHENSIVE METABOLI C) 12/09/2022 PROFILE, FASTING (COMPREHENSIVE METABOLI C) 11/18/2019 PROFILE, FASTING (COMPREHENSIVE METABOLI C) 01/27/2024 PROFILE, FASTING (COMPREHENSIVE METABOLI C) 01/27/2025 PROFILE, FASTING (COMPREHENSIVE METABOLI C) 09/30/2023 PROFILE, FASTING (COMPREHENSIVE METABOLI C) 11/09/2021 PROFILE, FASTING (COMPREHENSIVE METABOLI C) 10/04/2024 PROFILE, FASTING (COMPREHENSIVE METABOLI C) 03/15/2025 PROFILE, FASTING (COMPREHENSIVE METABOLI C) 01/25/2020 PROFILE, FASTING (COMPREHENSIVE METABOLI C) 07/11/2021 PROFILE, FASTING (COMPREHENSIVE METABOLI C) 06/19/2022 PROFILE, FASTING (COMPREHENSIVE METABOLI C) 06/18/2023 PROFILE, FASTING (COMPREHENSIVE METABOLI C) 06/07/2024 PROFILE, RANDOM (COMPREHENSIVE METABOLIC ) 10/14/2018 PROFILE, [...] PANEL 08/12/2022 LIPID PANEL 08/19/2019 PSA, TOTAL 06/19/2022 PSA, TOTAL 01/27/2024 PSA, TOTAL 12/09/2022 PSA, TOTAL 09/30/2023 PSA, TOTAL 10/04/2024 PSA, TOTAL 07/11/2021 PSA, TOTAL+FREE 02/26/2021 CBC w DIFF 07/06/2018 CBC w DIFF 07/11/2021 CBC w DIFF 06/07/2024 CBC w DIFF 01/25/2020 CBC w DIFF 06/19/2022 CBC w DIFF 10/14/2018 CBC w DIFF 03/26/2022 CBC w DIFF 05/08/2017 CBC w DIFF 01/27/2025 CBC w DIFF 11/18/2019 CBC w DIFF 02/26/2021 CBC w DIFF 11/21/2017 CBC w DIFF 12/09/2022 CBC w DIFF 03/15/2025 CBC w DIFF 09/30/2023 CBC w DIFF 10/30/2020 CBC w DIFF 11/09/2021 CBC w DIFF 10/04/2024 CBC w DIFF 08/12/2022 CBC w DIFF 08/19/2019 SED RATE (ESR) 03/26/2022 CT THORACIC SPINE NO CONTRAST 02/24/2025 BONE DENSITY DEXA 02/16/2025 CBC WITH AUTO DIFF 06/18/2023 CBC WITH AUTO DIFF 01/27/2024 Lipid Panel 09/30/2023 Lipid Panel 10/04/2024 Lipid Panel 06/18/2023 Lipid Panel 07/11/2021 Lipid Panel 06/07/2024 Lipid Panel 01/27/2025 Lipid Panel 01/27/2024 Lipid Panel 03/15/2025 PSA Free and Total 01/27/2025 INR WHOLE BLOOD POC 05/06/2025 Prothrombin Time Whole Bld POC CT cervical spine wo con 02/24/2025 Next Appt Details Provider Name:Jose Felder , 05/18/2025 10:30:00 AM, [address] [place] [address] [address], [place], [address], Provider Name:Jose [place] , 10/05/2025 02:30:00 PM, [address] [place] [address] [address], [place], [address], Insurance Providers Payer Name Payer Address Payer Phone Subscriber Number Group Number Insured Name Patient Relationship to Insured Coverage Start Date Coverage End Date [facility] [address] [place], [place] [id number] Jem Gallardo Self - patient is the insured 4 MEDICARE NGS [address] [place] [address] [id number] Jem Gallardo Self - patient is the insured Medical (General) History Medical History History ICD Code migraine headaches allergies hypertension anal fissure staphylococcal infection 1999 chronic lymphocytic leukemia in [facility] lung cancer, non-small cell obesity former smoker dvt february 2015 right leg protein S deficiency Covid 22 August 2024 Surgical History Surgery Date(Month/Year) No history Cyst removed from his back 08/2022 cataract right eye 06/2018 FNA superior mediastinal mass Hospitalization History Reason Date(Month/Year) No history
--- OUTSIDE RECORDS SUMMARY | 2025-05-06 09:30 | XMS_ITS | Patient Health Record ---
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 Plan Of Treatment Pending Test Test Name Order Date X ray : Foot, left 3V 06/28/2013 [id number] TENDON SHEATH/LIGAMENT 0 09/08/2013,[id number] TENDON SHEATH/LIGAMENT 0 01/11/2014,[id number] TENDON SHEATH/LIGAMENT 0 10/12/2019 Insurance Providers Payer Name Payer Address Payer Phone Subscriber Number Group Number Insured Name Patient Relationship to Insured Coverage Start Date Coverage End Date Medicare National Govt Needle HR [facility] [address] [place] [address] [id number] Jem Gallardo Self - patient is the insured [employer] [address] [place] [address] [id number] Jem Gallardo Self - patient is the [...]
== END 2025-05-06 09:17 | disposition home or self-care (01) ==
LOC: HO.ACS 09:05
PROVIDERS: PCP Internal Medicine Medical Oncology; Visit Provider Internal Medicine Medical Oncology
DX: Z79.01 Long term (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 (principal)

== ENCOUNTER → 2025-05-06 09:05 | Outpatient (BNVA) | payer MEDICARE, SELFPAY | PROVIDERS: PCP Internal Medicine Medical Oncology; Visit Provider Internal Medicine Medical Oncology | DX: Z86.718 Personal history of other venous thrombosis and embolism (principal); Z79.01 Long term (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; Z51.81 Encounter for therapeutic drug level monitoring | CPT/HCPCS: 85610; 99211 ==

== ENCOUNTER → 2025-05-12 10:00 | Outpatient (BNV) | payer MEDICARE, SELFPAY | PROVIDERS: Visit Provider Radiology Diagnostic Radiology | DX: Q78.2 Osteopetrosis (principal) | CPT/HCPCS: 77080 ==

== ENCOUNTER 2025-05-12 10:04 | Outpatient (REF) | payer MEDICARE, SELFPAY ==
--- NOTE | ~2025-05-12 | MM_ITS ---
EXAMINATION: DXA BONE DENSITY AXIAL HISTORY: Q78.2 OSTEOPETROSIS TECHNIQUE: Ritani Dual energy absorptiometry (DEXA) of the lumbar spine, total left hip, and femoral neck was performed. COMPARISON: There are no prior studies for comparison. FINDINGS: The bone mineral density of the lumbar spine is 1.934 g/cm2, corresponding to a T-score of 6.0, and a Z-score of 6.5. This is indicative of normal bone mineral density. The bone mineral density of the left total hip is 1.531 g/cm2, corresponding to a T-score of 3.0, and a Z-score of 4.0. This is indicative of normal bone mineral density. The bone mineral density of the left femoral neck is 1.376 g/cm2, corresponding to a T-score of 2.4, and a Z-score of 3.8. This is indicative of normal bone mineral density. FRACTURE RISK: The FRAX index suggests a risk of major osteoporotic fracture of 3.0%, and of hip fracture 0.5%. MM/XR DEXA axial skeleton IMPRESSION: Based on bone mineral density, and according to World Health Organization (WHO) criteria, the diagnosis is consistent with normal bone mineral density. Statistically, 68% of repeat scans fall within 1 SD (+/- 0.010 g/cm2 for AP spine L1-L4) and 1 SD (+/- 0.012 g/cm2 for femur total) FRAX is a trademark of the [employer] [place] [facility] [employer], a World Health Organization (WHO) Collaborating Center. Electronically signed by: Jose Charles MD 05/12/2025 11:20 AM EDT
== END 2025-05-12 10:05 | disposition home or self-care (01) ==
LOC: HO.MAMMO 10:04
PROVIDERS: Visit Provider Internal Medicine Medical Oncology
DX: Z13.820 Encounter for screening for osteoporosis (principal); Q78.2 Osteopetrosis
CPT/HCPCS: 77080

== ENCOUNTER 2025-05-20 09:45 | Outpatient (AMB) | payer MEDICARE, SELFPAY ==
--- OUTSIDE RECORDS SUMMARY | 2025-01-27 07:30 | XMS_ITS ---
Author Organization Jose Felder III, MD Address [address] [place] [address] [place] [address] Care Team Providers Care Business Support Professional Name Role Phone Dr. 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 He is using [id number] medication. I recommended fluticasone and loratadine. 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 He is using sujs-yzu-hpnobbb medication. I recommended fluticasone and loratadine. 6 [...] Orally, Once a day. Referral To:Orthopedic Surgeons [facility] Orthopedic Surgery Reason:Urgent Referral Request [...] MD Date: 0 01/27/2025 Generated for Frandy mittal/Apple/Rubenitting on: 1 11:14 AM EDT History and Physical Notes * [...] Referred Provider Not es 01/27/2025 Jose Felder [facility], Orthopedic Surgeons Urgent Referral Request Evaluate and Treat Questioning injections in spine Back Pain Questioning if needs injections
--- OUTSIDE RECORDS SUMMARY | 2025-02-03 08:15 | XMS_ITS ---
Author Organization Jose Felder III, MD Address [address] [place] [address] [address] [place] [address] Care Team Providers Care Medical Librarian Name Role Phone Dr. Jose Felder III Primary Care Provider REASON FOR VISIT Follow up Social History Sex Assigned At : Social History Observation Description Sex Assigned At Male Encounters Encounter Location Date Provider Diagnosis Jose Felder III, MD [address] [place] [address] [place] [address] 02/03/2025 Jose Felder Plan Of Treatment Next Appt Details Provider Name:Jose Felder , 10/05/2025 02:30:00 PM, [address] [place] [address] [place], [address], Progress Notes * Jem QUINTEROSDOB:1945 ( 80 yo M)Acc No.[id number]:02/03/2025 Progress Notes Patient: Jem JI Provider: Annalise [...] 02/03/2025 Generated for Frandy mittal/Apple/Amauri on: 1 11:14 AM EDT
--- OUTSIDE RECORDS SUMMARY | 2025-02-08 10:26 | XMS_ITS ---
Author Organization Jose Felder III, MD Address [address] [place] [place] [place] [address] Care Team Providers Care Bilingual Social Worker Name Role Phone Dr. Jose Felder III Primary Care Provider REASON FOR VISIT Regarding medication list Social History Sex Assigned At : Social History Observation Description Sex Assigned At Male Encounters Encounter Location Date Provider Diagnosis Jose Felder III, MD [address] [place] [address] [place] [address] 02/08/2025 Jose Felder Plan Of Treatment Next Appt Details Provider Name:Jose Felder , 10/05/2025 02:30:00 PM, [address] [place] [address] [place], [address], Progress Notes * Jem QUINTEROSDOB:1945 ( 79 yo M)Acc No.[id number]:02/08/2025 Patient: Jem JI :1945 A ge:79 Y S ex:Male Address:[place] [address] * true * Date: Generated for Printi ng/Faxing/eTransmitting on: 1 11:13 AM EDT
--- OUTSIDE RECORDS SUMMARY | 2025-02-09 09:15 | XMS_ITS ---
Author Organization Jose Felder III, MD Address [address] [place] [address] [place] [address] Care Team Providers Care Displayer Merchandise Name Role Phone Dr. Jose Felder III [...] Provider Speciality Internal M edicine Referred Provider [facility] er, Pulmonology Referred Provider Specialty Pulmonary [facility] General Notes Bhavana Salinas CMA 02/10 09:06:58 AM > ref/demo/progress note/labs faxed to [place] pulmonary dept Referral Priority Routine Referral Appointment [...] Provider Diagnosis Jose Felder III, MD [address] [place] [address] DR ORDONEZ, [place]EB [address] 02/09/2025 Jose Felder Suspected sleep apne a [...] treat needs sleep study daytime somnolence, Pulmonology [facility] Next Appt Details Follow Up: 1 Week, Reason: a s scheduled Provider Name:Jose Felder , 10/05/2025 02:30:00 PM, [address] [place] [address] [place], [address], Progress Notes * Jem QUINTEROSDOB:1945 ( 79 yo M)Acc No.[id number]:02/09/2025 Progress Notes Patient: Jem JI Provider: Annalise Felder MD :1945 A ge:79 Y S ex:Male Date:02/09/2025 Address: [id number] Subjective: * Chief Complaints: * R [...] occurred while driving and he had to basting puller to the side and once took [...] 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 Pane l Fast * Collection Date 02/08/2025 [...] 02/09/2025 Generated for Frandy mittal/Apple/Rubenitting on: 1 11:15 AM EDT History and Physical Notes * [...] Referred Provider Not es 02/09/2025 Jose Felder [facility], Pulmonology eval and treat needs sleep study daytime somnolence
--- OUTSIDE RECORDS SUMMARY | 2025-02-16 05:45 | XMS_ITS ---
Author Organization Jose Felder III, MD Address [address] [place] [address] DR PACKER Kervin [place] [address] Care Team Providers Care Tomography Technologist Name Role Phone Dr. Jose Felder III Primary Care Provider Allergies Allergen (clinical drug ingredient) Drug/Non Drug Allergy documented on EMR Reaction Allergy Type Onset Date Status No Known Drug Allergy Unknown Drug Allergy Active Seasonale Unknown Drug Allergy Active Results Component Value Reference Range Notes Lipid Panel Reviewed date:02/25/2025 01:03:25 PM Interpretation: Performing Lab:[facility], [address] [place] [phone] Notes/Report: Triglycerides 73 <150 mg/dL Desirable Triglyceride: [...] Amylase Reviewed date:02/25/2025 01:03:25 PM Interpretation: Performing Lab:[facility], [address] [place] [phone] Notes/Report: Amylase 57 28-100 U/L XR thoracic spine 3V Reviewed date:02/25/2025 01:03:25 PM Interpretation: Performing Lab: Notes/Report: [address] [address] XRay Report Signed Patient: Jem Quinteros MR#: [id number] 3 : 1945 Acct:[id number] Age/Sex: 79 / M ADM Date: 02/16/25 Loc: HO.LAB Attending Dr: Jose Felder MD Ordering Physician: Jose Felder MD Date of Service: 02/16/25 Procedure(s): XR thoracic spine 3V Accession Number(s): [id number] cc: Jose Felder MD EXAMINATION: XR THORACIC [...] 02/16/25 1056 DD/ 1045 TD/TT: 02/16/25 1051 Plate And Weld Inspector: [address] [address] XRay Report Signed Patient: Jem Quinteros MR#: [id number] 3 : 1945 Acct:[id number] Age/Sex: 79 / M ADM Date: 02/16/25 Loc: HO.LAB Attending Dr: Jose Felder MD Ordering Physician: Jose Felder MD Date of Service: 02/16/25 Procedure(s): XR thoracic spine 3V Accession Number(s): [id number] cc: Jose Felder MD EXAMINATION: XR THORACIC [...] 02/16/25 1056 DD/ 1045 TD/TT: 02/16/25 1051 Plate And Weld Inspector: REASON FOR VISIT Vertigo, Back pain, History [...] Status Risk Notes Problem Thoracic back pain (428772025) Thoracic back pain (M54.6) Active confirmed The [...] Date Provider Diagnosis Jose Felder III, MD [address] [place] [address] [place] [address] 02/16/2025 Jose Felder Thoracic back pain M54.6 [...] eyes and nasal congestion. He is using hxjk-fgp-mpzgqad medication. I recommended fluticasone and loratadine. 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 Pane l Fast * Collection Date 02/08/2025 [...] eyes and nasal congestion. He is using xdna-vku-frwghqw medication. I recommended fluticasone and loratadine. 5 [...] 02/16/2025 Generated for Frandy mittal/Apple/eTransmitting on: 1 11:14 AM EDT History and [...]
--- OUTSIDE RECORDS SUMMARY | 2025-02-24 05:00 | XMS_ITS ---
Author Organization Jose Felder III, MD Address [address] [place] [address] [place] [address] Care Team Providers Care Magnetic Prospector Name Role Phone Dr. Jose Felder III Primary Care Provider [phone] Allergies Allergen (clinical drug ingredient) Drug/Non Drug [...] W/U Status Risk Notes Problem Neck pain ([id number]) Cervical pain (neck) (M54.2) Active confirmed He has had neurosurgery in the past on his lower cervical spine leaving him with a metal plate and a . This was done by who is now at [facility]. Vital Signs Temperature 98.3 degrees Fahrenheit 02/25/20 25 Blood pressure systolic 119 mm Hg 02/25/20 25 Blood pressure diastolic 74 mm Hg 025 Heart Rate 86 /min 02/24/2025 Height 71 in 02/24/2025 Weight 194 lbs 02/24/2025 BMI 27.05 kg/m2 02/24/2025 Encounters Encounter Location Date Provider Diagnosis Jose Felder III, MD [address] [place] [address] [place] [address] 02/24/2025 Jose Felder Thoracic back pain M [...] who is now at [facility]. 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 The patient is retired and does not [...] who is now at [facility]. 3 . C hronic lymphoid leukemia [...] Felder MD Date: 0 02/24/2025 Generated for Kaciei daxa/Apple/eTransmitting on: 1 11:15 AM EDT History and [...]
--- OUTSIDE RECORDS SUMMARY | 2025-03-02 06:06 | XMS_ITS ---
Author Organization Jose Felder III, MD Address [address] [place] [address] [address] [place] [address] Care Team Providers Care Communications Supervisor Name Role Phone Dr. Jose Felder III Primary Care Provider REASON FOR VISIT needs medical records Social History Sex Assigned At : Social History Observation Description Sex Assigned At Male Encounters Encounter Location Date Provider Diagnosis Jose Felder III, MD [address] [place] [address] [place] [address] 03/02/2025 Jose Felder Plan Of Treatment Next Appt Details Provider Name:Jose Felder , 10/05/2025 02:30:00 PM, [address] [place] [address] [place], [address], Progress Notes * Jem QUINTEROSDOB:1945 ( 79 yo M)Acc No.[id number]:03/02/2025 Patient: Jem JI :1945 A ge:79 Y S ex:Male Address:[place] [address] * true * Date: Generated for Printi ng/Faxing/eTransmitting on: 1 11:14 AM EDT
--- OUTSIDE RECORDS SUMMARY | 2025-03-10 05:30 | XMS_ITS ---
Author Organization Jose Felder III, MD Address [address] [place] [address] [place] [address] Care Team Providers Care Imitation Marble Mechanic Name Role Phone Dr. Jose Felder III Primary Care Provider [phone] Allergies Allergen (clinical drug ingredient) Drug/Non Drug [...] Problem Status W/U Status Risk Notes Problem 574154391 Sensorineural hearing loss (SNHL) of both ears (H90.3) Active confirmed compeensated with hearing aids. Problem 150640411 Diabetes mellitus type 2 in nonobese (E11.9) Active confirmed He was continued on current therapy. He will be back in the office in the near future to reevaluate this problem. Problem 39915461 Cervical radiculopathy (M54.12) Active confirmed Follows vigorous [...] Provider Diagnosis Jose Felder III, MD [address] [place] [address] [place] [address] 03/10/2025 Jose Felder Former smoker Z87.89 1 [...] eyes and nasal congestion. He is using qsnp-bzx-uacdwvc medication. I recommended fluticasone and loratadine. 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 He is using adyn-eny-axzytwc medication. I recommended fluticasone and loratadine. Plan: [...] 0 03/10/2025 Generated for Frandy mittal/Apple/Kennethsmitting on: 1 11:14 AM EDT History and [...]
--- OUTSIDE RECORDS SUMMARY | 2025-03-15 05:00 | XMS_ITS ---
Author Organization Jose Felder III, MD Address [address] [place] [address] [place] [address] Care Team Providers Care Memorial Adviser Name Role Phone Dr. Jose Felder III [...] Date Provider Diagnosis Jose Felder III, MD [address] [place] [address] [place] [address] 03/15/2025 Jose Felder Hypertension I10 ; P [...] eyes and nasal congestion. He is using fuzy-kul-cftegfm medication. I recommended fluticasone and loratadine. 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 He is using zkvw-sjk-isfuceh medication. I recommended fluticasone and loratadine. Plan: [...] Felder MD Date: 0 03/15/2025 Generated for Kaciei daxa/Apple/eTransmitting on: 11:16 AM EDT History and Physical Notes * HPI (History of Present Illness) Category Sub-Category Detail Notes Telehealth Location of [facility] ider rendering services:: {...} [address] [facility] [address] Location of patient:: address listed in demographics [...]
--- OUTSIDE RECORDS SUMMARY | 2025-05-18 06:30 | XMS_ITS ---
Author Organization Jose Felder III, MD Address [address] [place] [address] [place] [address] Care Team Providers Care Infrastructure Engineer Name Role Phone Dr. Jose [...] Date Provider Diagnosis Jose Felder III, MD [address] [place] [address] [place] [address] 05/18/2025 Jose Felder Lung cancer C34.90 ; [...] eyes and nasal congestion. He is using mvdm-arj-krsorhe medication. I recommended fluticasone and loratadine. 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 He is using jono-hbe-moxpgjk medication. I recommended fluticasone and loratadine. 6 [...] MD Date: Generated for Kaciei daxa/Apple/eTransmitting on: 11:14 AM EDT History and Physical Notes [...]
--- NOTE | 2025-05-20 09:50 | MHC.OFFVIS ---
Vital Signs 05/20/25 09:55 Height 5 ft 11 in Weight 184 lb BMI 25.7 Intake Visit Reasons: OV- Lower back pain Intake Note: Jem is a 80 year old male who presents today as a new patient for lower back pain. Patient was referred by his PCP 01/31/25. Patient has had X ray's done of the Lumbar and Thoracic Spine. At today's visit patient states that he has had lower back pain for over 40 years but in the past three to four months he has had lower back pain that radiates up into the neck. He states that he has tried physical therapy and at home exercises throughout the years with little relief. He reports that the neck pain is very stiff and sore and that his back pain is now manageable. Allergies Seasonal Allergies Allergy (Intermediate, Verified 05/20/25 09:55) Cough venlafaxine Adverse Reaction (Intermediate, Verified 05/20/25 09:55) Headache Medication List - Last Reconciled 05/20/25 by Roxie Lerma MD cyclobenzaprine 5 mg PO TID PRN losartan 25 mg PO DAILY simvastatin 40 mg PO DAILY sumatriptan succinate 100 mg PO PRN trazodone 50 mg PO DAILY vitamin B complex PO [VITAMIN D 3 PO] warfarin 5 mg See Protocol PO DAILY HPI Comments Details: This is a newer neck pain, couple of months ago, woke up with stiff neck and down to lower back. He did go to golf prior. He is quite active even now. Not shooting to arms. No numbness. No recent spine injections, could be more than [address] scan showed evidence of previous ACDF C5-6, but patient does not recall getting cervical surgery. On Coumadin for history of DVT 5-6 years ago. [facility] Medical History (Updated 05/20/25 @ 10:11 by Roxie Lerma MD) Snoring Retrognathia Somnolence, daytime Osteoarthritis of left knee Phlebitis and thrombophlebitis of other deep vessels of right lower extremity Current use of anticoagulant therapy Surgical History History of cataract Family History Father Diabetes Hyperlipemia Brother Lung cancer Social History Household Members: Spouse Alcohol intake: never Patient Tobacco Use Status: Former Tobacco user Tobacco use type: Cigar Current occupational status: retired Review of Systems Const All systems reviewed & are unremarkable except as noted in HPI and below Physical Exam Exam Exam: Constitutional: Patient appears to be in no acute distress, well nourished and well developed. Patient was appropriately conversant and oriented. Good historian. MSK: Inspection reveals appropriate head and neck positioning. Some tenderness over upper trapezius and cervical facets.. Cervical ROM was limited on extension with pain. Spurling's sign negative. Bilateral shoulder, elbow and wrist ROM WNL. No ligamentous laxity or crepitance. No increased effusion. Strength is 5/5 in all muscle groups tested. No increased tone noted. Neurological: Neurologic examination of the upper and lower extremities was nonfocal with intact sensation, muscle stretch reflexes and without focal motor deficits . Mansfield?s negative bilaterally. Babinski was down going bilaterally. Clonus was negative. Gait is non-antalgic without loss of balance. Vital Signs: BMI result Body Mass Index 25.7 Results Reviewed Results Reviewed: Ordering Physician: Jose Felder MD Date of Service: 03/05/25 Procedure(s): CT thoracic spine wo IV con Accession Number(s): [id number] cc: Jose Felder MD~ Report Number: [id number]: Total DLP = 629.00 mGy-cm CLINICAL HISTORY: thoracic back pain CT thoracic spine without contrast Comparison: CR/SR - XR THORACIC SPINE 3 VIEWS - 02/16/25 10:49 EDT Findings: Vertebral alignment is within normal limits. No acute fractures or dislocations. Multilevel disc space narrowing and endplate osteophyte formation, as well as facet hypertrophy. Moderate airspace opacity within the right upper lobe medially, suggestive of scarring. Lower cervical fusion hardware. Normal upper abdominal contents. IMPRESSION: No acute findings. This document has been electronically signed by: Mandi Moe MD on 03/07/2025 19:14:10 Ordering Physician: Jose Felder MD Date of Service: 03/05/25 Procedure(s): CT cervical spine wo IV con Accession Number(s): [id number] cc: Jose Felder MD~ Report Number: [id number]: Total DLP = 990.70 mGy-cm CLINICAL HISTORY: cervical pain CT cervical spine without contrast Comparison: None provided Findings: Vertebral alignment is within normal limits. Multilevel disc space narrowing and endplate osteophyte formation, as well as facet hypertrophy. Anterior fusion hardware at C5-C7. No acute fractures or dislocations. Visualized intracranial contents are unremarkable. No cervical fluid collections or masses. No consolidation or effusion at the lung apices. IMPRESSION: No acute findings. This document has been electronically signed by: Mandi Moe MD on 03/07/2025 18:56:26 I reviewed records from the following: PCP Assessment & Plan Assessment & Plan (1) Myofascial pain: Code(s): M79.18 - Myalgia, other site Category: Medical (2) Cervical spondylosis: Code(s): M47.812 - Spondylosis without myelopathy or radiculopathy, cervical region Category: Medical Plan Suspect he has myofascial pain, without signs of cervical radiculopathy or myelopathy. He has done his own exercises without improvement. Suggested scheduling trigger point injections if not improved on its own. Patient eager to proceed. Assessment and plan discussed with patient, and patient was agreeable. All questions were answered thoroughly. Roxie Lerma MD, ISABEL Board Certified, [place] [employer] and [employer] (ABPMR) Board Certified, [place] [employer] Electro[employer] (ABEM) Coding Level of Care Code New Pt Level 4 (37208) Diagnoses Myofascial pain M79.18 Cervical spondylosis M47.812
[2025-05-20 09:55] VITALS: BMI 25.7
--- OUTSIDE RECORDS SUMMARY | 2025-05-20 11:14 | XMS_ITS | Encounter Summary ---
Author Organization [facility] Address [address] [place] [address] Care Team Providers Care Financial Compliance Examiner Name Role Phone Wilner Paulson MD Primary Care Provider Jose Hines MD Primary Care Provider Vladimir kapoor Reason for Visit * Reason Onset Date Comments [place] Special Procedure Gi 06/24/2017 Encounter Details Date Type Department Care Team Description 06/24/2017 Telephone Gastroenterology - [address] [address] Guicho Bravo MD [facility] [...] 9:38 AM EST Received a call from [facility] stating this patient will need to be rescheduled because they are unableto fill procedures for this day. Patient informed he is rescheduled for 08/15 at 6:30 arrival 7:30 procedure * Telephone Encounter - Kimberly Rain - 06/24/2017 3:56 PM EST * Telephone Encounter - Kimberly Rain - 06/24/2017 11:50 AM EST Pt. Has been referred to by for Colon at [facility] on 08/05/2017. P6:30 am arrival time, 7:30 procedure time. Demo insurance and booking faxed to Savannah Barajas recieved documented in this encounter Plan of Treatment Not on file documented as of this encounter Visit Diagnoses Not on filedocumented in this encounter Care Teams Financial Compliance Examiner Relationship Specialty Start Date End Date Wilner Paulson MD PCP - General Internal Medicine 11/13/1601/02 Jose Felder MD PCP - General Oncology/Hematology 01/19/18 documented as of this encounter
--- OUTSIDE RECORDS SUMMARY | 2025-05-20 11:14 | XMS_ITS | Encounter Summary ---
Author Organization [facility] Address [address] [place] [address] Care Team Providers Care Special Officer Name Role Phone Wilner Paulson MD Primary Care Provider Unavailable Jose Felder MD Primary Care Provider Vladimir kapoor Encounter Details Date Type Department Care Team Description 12/02/2016 Release of Information Medical Records [address] [place] [id number] Abstract, Provider Social History Tobacco Use Types [...] on filedocumented in this encounter Care Teams Special Officer Relationship Specialty Start Date End Date Wilner Paulson MD PCP - General Internal Medicine 11/13/1601/02 Jose Felder MD PCP - General Oncology/Hematology 01/19/18 documented as of this encounter
--- OUTSIDE RECORDS SUMMARY | 2025-05-20 11:14 | XMS_ITS | Encounter Summary ---
Author Organization [facility] Address [address] [place] [address] Care Team Providers Care Java J2Ee Technical Lead Name Role Phone Wilner Paulson MD Primary Care Provider Unavailable Jose Felder MD Primary Care Provider Vladimir kapoor Encounter Details Date Type Department Care Team Description 03/18/2017 Business Doc Medical Records [address] [place] [id number] Abstract, Provider Social History Tobacco Use Types [...] on filedocumented in this encounter Care Teams Java J2Ee Technical Lead Relationship Specialty Start Date End Date Wilner Paulson MD PCP - General Internal Medicine 11/13/1601/02 Jose Felder MD PCP - General Oncology/Hematology 01/19/18 documented as of this encounter
--- OUTSIDE RECORDS SUMMARY | 2025-05-20 11:16 | XMS_ITS | Encounter Summary ---
Author Organization [facility] Address [address] [place] [address] Care Team Providers Care Olive Packer Name Role Phone Wilner Paulson MD Primary Care Provider Unavailable Jose Felder MD Primary Care Provider Vladimir kapoor Encounter Details Date Type Department Care Team Description 04/10/2017 Wellness Visit Medical Records [address] [place] [id number] Wilner Paulson MD Social History Tobacco Use [...] on filedocumented in this encounter Care Teams Olive Packer Relationship Specialty Start Date End Date Wilner Paulson MD PCP - General Internal Medicine 11/13/1601/02 Jose Felder MD PCP - General Oncology/Hematology 01/19/18 documented as of this encounter
--- OUTSIDE RECORDS SUMMARY | 2025-05-20 11:16 | XMS_ITS | Patient Health Record ---
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 [facility] [address] [place] [address] [id number] Jem Gallardo Self - patient is the insured [employer] [address] [place] [address] [id number] Jem Gallardo Self - patient is the [...]
--- OUTSIDE RECORDS SUMMARY | 2025-05-20 11:17 | XMS_ITS | Patient Health Record ---
Author Organization Jose Felder III, MD Address [address] P[place] [address] Care Team Providers Care Video Intern Name Role Phone Dr. Jose Felder III [...] Panel Reviewed date:02/25/2025 01:03:25 PM Interpretation: Performing Lab:[facility], [address] [place] [phone] Notes/Report: Triglycerides 73 <150 mg/dL Desirable Triglyceride: [...] Amylase Reviewed date:02/25/2025 01:03:25 PM Interpretation: Performing Lab:[facility], [address] [place] [phone] Notes/Report: Amylase 57 28-100 U/L XR thoracic spine 3V Reviewed date:02/25/2025 01:03:25 PM Interpretation: Performing Lab: Notes/Report: [address] [address] XRay Report Signed Patient: Jem Gallardo MR#: [id number] 3 : 1945 Acct:[id number] Age/Sex: 79 / M ADM Date: 02/16/25 Loc: HO.LAB Attending Dr: Jose Felder MD Ordering Physician: Jose Felder MD Date of Service: 02/16/25 Procedure(s): XR thoracic spine 3V Accession Number(s): [id number] cc: Jose Felder MD EXAMINATION: XR THORACIC [...] 02/16/25 1056 DD/ 1045 TD/TT: 02/16/25 1051 Prosthetics Lab Technician: [address] [address] XRay Report Signed Patient: Jem Gallardo MR#: [id number] 3 : 1945 Acct:[id number] Age/Sex: 79 / M ADM Date: 02/16/25 Loc: HO.LAB Attending Dr: Jose Felder MD Ordering Physician: Jose Felder MD Date of Service: 02/16/25 Procedure(s): XR thoracic spine 3V Accession Number(s): [id number] cc: Jose Felder MD EXAMINATION: XR THORACIC [...] 02/16/25 1056 DD/ 1045 TD/TT: 02/16/25 1051 Prosthetics Lab Technician: Complete Blood Count Auto Di ff Reviewed date:06/07/2024 11:48:38 AM Interpretation: Performing Lab:[facility], [address] [place] [phone] Notes/Report: White Blood Count 9.5 4.8-10.8 X10*3/uL [...] NRBC Abs Auto 0.000 0.0-0.012 X10*3/uL Comprehensive [place]. Panel Fa st Reviewed date:06/07/2024 11:48:38 AM Interpretation: Performing Lab:[facility], [address] [place] [address], [place] [address] Notes/Report: Sodium 144 135-145 mmol/L Potassium 4.7 3.3-5.1 mmol/L Chloride 108 96-108 mmol/L Carbon Dioxide 27 22-29 mmol/L Anion Gap 14 12-20 Blood Urea Nitrogen 20 9-16 mg/dL Creatinine 0.79 0.5-1.4 mg/dL Estimated Glomerular Filt Rate > 60 NOTE: For -Moroccan individuals, multiply the result by 1.210. Chronic [...] Panel Reviewed date:06/07/2024 11:48:38 AM Interpretation: Performing Lab:[address] [phone] Notes/Report: Triglycerides 66 <150 mg/dL Desirable Triglyceride: [...] Antigen Reviewed date:06/07/2024 11:48:38 AM Interpretation: Performing Lab:[facility], [address] [place] [phone] Notes/Report: Prostate Specific Antigen 1.23 <0.05-4.0 ng/mL PSA methodology: Sheets Alinity i Chemiluminescent Microparticle Immunoassay (CMIA) INR WHOLE BLOOD POC Reviewed date:06/15/2024 08:32:55 AM Interpretation: Performing Lab:[facility], [address] [place] [phone] Notes/Report: PT, INR - Anti [facility]ag Clinic 2.0 0.9-1.1 METER #: [id number] INTERNATIONAL NORMALIZED RATIO (INR) REFERENCE RANGES Reference [...] OC Reviewed date:06/15/2024 08:32:55 AM Interpretation: Performing Lab:[facility], [address] [place] [phone] Notes/Report: Prothrombin Time Whole Bld POC 24.4 11.1-13.5 sec INR WHOLE BLOOD POC Reviewed date:07/16/2024 08:35:52 AM Interpretation: Performing Lab:[facility], [address] [place] [phone] Notes/Report: PT, INR - [facility]ag [facility] 1.6 0.9-1.1 METER #: [id number] INTERNATIONAL NORMALIZED RATIO (INR) REFERENCE RANGES Reference [...] OC Reviewed date:07/16/2024 08:35:52 AM Interpretation: Performing Lab:[facility], [address] [place] [phone] Notes/Report: Prothrombin Time Whole Bld POC 19.4 11.1-13.5 sec INR WHOLE BLOOD POC Reviewed date:07/23/2024 09:07:49 PM Interpretation: Performing Lab:[facility], [address] [place] [phone] Notes/Report: PT, INR - Anti [facility]ag [facility] 1.8 0.9-1.1 METER #: [id number] INTERNATIONAL NORMALIZED RATIO (INR) REFERENCE RANGES Reference [...] OC Reviewed date:07/23/2024 09:07:49 PM Interpretation: Performing Lab:[facility], [address] [place] [phone] Notes/Report: Prothrombin Time Whole Bld POC 21.4 11.1-13.5 sec INR WHOLE BLOOD POC Reviewed date:08/06/2024 08:49:39 PM Interpretation: Performing Lab:[facility], [address] [place] [phone] Notes/Report: PT, INR - Anti Coag Clinic 2.1 0.9-1.1 METER #: [id number] INTERNATIONAL NORMALIZED RATIO (INR) REFERENCE RANGES Reference [...] OC Reviewed date:08/06/2024 08:49:39 PM Interpretation: Performing Lab:[facility], [address] [place] [phone] Notes/Report: Prothrombin Time Whole Bld POC 25.3 11.1-13.5 sec INR WHOLE BLOOD POC Reviewed date:09/02/2024 06:23:24 AM Interpretation: Performing Lab:[facility], [address] [place] [phone] Notes/Report: PT, INR - Anti Coag Clinic 1.6 0.9-1.1 METER #: [id number] INTERNATIONAL NORMALIZED RATIO (INR) REFERENCE RANGES Reference [...] OC Reviewed date:09/02/2024 06:23:24 AM Interpretation: Performing Lab:[facility], [address] [place] [phone] Notes/Report: Prothrombin Time Whole Bld POC 18.8 11.1-13.5 sec INR WHOLE BLOOD POC Reviewed date:09/05/2024 08:45:11 AM Interpretation: Performing Lab:[facility], [address] [place] [phone] Notes/Report: PT, INR - Anti Coag Clinic 2.0 0.9-1.1 METER #: [id number] INTERNATIONAL NORMALIZED RATIO (INR) REFERENCE RANGES Reference [...] OC Reviewed date:09/05/2024 08:45:11 AM Interpretation: Performing Lab:[facility], [address] [place] [phone] Notes/Report: Prothrombin Time Whole Bld POC 24.2 11.1-13.5 sec INR WHOLE BLOOD POC Reviewed date:09/19/2024 09:54:44 AM Interpretation: Performing Lab:[address] [phone] Notes/Report: PT, INR - Anti Coag Clinic 2.6 0.9-1.1 METER #: [id number] INTERNATIONAL NORMALIZED RATIO (INR) REFERENCE RANGES Reference [...] OC Reviewed date:09/19/2024 09:54:44 AM Interpretation: Performing Lab:[facility], [address] [place] [phone] Notes/Report: Prothrombin Time Whole Bld POC 31.6 11.1-13.5 sec INR WHOLE BLOOD POC Reviewed date:09/24/2024 11:58:00 AM Interpretation: Performing Lab:[facility], [address] [place] [phone] Notes/Report: PT, INR - Anti Coag Clinic 1.8 0.9-1.1 METER #: [id number] INTERNATIONAL NORMALIZED RATIO (INR) REFERENCE RANGES Reference [...] OC Reviewed date:09/24/2024 11:58:00 AM Interpretation: Performing Lab:[facility], [address] [place] [phone] Notes/Report: Prothrombin Time Whole Bld POC 21.8 11.1-13.5 sec Complete Blood Count Auto Di ff Reviewed date:10/04/2024 11:26:43 AM Interpretation: Performing Lab:[facility], [address] [place] [phone] Notes/Report: White Blood Count 10.5 4.8-10.8 X10*3/uL [...] NRBC Abs Auto 0.000 0.0-0.012 X10*3/uL Comprehensive [place]. Panel Fa st Reviewed date:10/04/2024 11:26:43 AM Interpretation: Performing Lab:[facility], [address] [place] [phone] Notes/Report: Sodium 144 135-145 mmol/L Potassium 4.6 [...] Panel Reviewed date:10/04/2024 11:26:43 AM Interpretation: Performing Lab:[address] [phone] Notes/Report: Triglycerides 81 <150 mg/dL Desirable Triglyceride: [...] POC Reviewed date:10/04/2024 11:26:43 AM Interpretation: Performing Lab:[address] [phone] Notes/Report: PT, INR - Anti Coag Clinic 2.0 0.9-1.1 METER #: [id number] INTERNATIONAL NORMALIZED RATIO (INR) REFERENCE RANGES Reference [...] OC Reviewed date:10/04/2024 11:26:43 AM Interpretation: Performing Lab:[facility], [address] [place] [phone] Notes/Report: Prothrombin Time Whole Bld POC 23.8 11.1-13.5 sec INR WHOLE BLOOD POC Reviewed date:10/19/2024 12:18:43 PM Interpretation: Performing Lab:[facility], [address] [place] [phone] Notes/Report: PT, INR - Anti Coag Clinic 1.7 0.9-1.1 METER #: [id number] INTERNATIONAL NORMALIZED RATIO (INR) REFERENCE RANGES Reference [...] OC Reviewed date:10/19/2024 12:18:43 PM Interpretation: Performing Lab:[facility], [address] [place] [phone] Notes/Report: Prothrombin Time Whole Bld POC 20.9 11.1-13.5 sec INR WHOLE BLOOD POC Reviewed date:10/30/2024 07:56:40 AM Interpretation: Performing Lab:[facility], [address] [place] [phone] Notes/Report: PT, INR - Anti Coag Clinic 2.5 0.9-1.1 METER #: [id number] INTERNATIONAL NORMALIZED RATIO (INR) REFERENCE RANGES Reference [...] OC Reviewed date:10/30/2024 07:56:40 AM Interpretation: Performing Lab:[facility], [address] [place] [phone] Notes/Report: Prothrombin Time Whole Bld POC 30.4 11.1-13.5 sec INR WHOLE BLOOD POC Reviewed date:11/12/2024 08:31:52 PM Interpretation: Performing Lab:[facility], [address] [place] [phone] Notes/Report: PT, INR - Anti Coag Clinic 2.0 0.9-1.1 METER #: [id number] INTERNATIONAL NORMALIZED RATIO (INR) REFERENCE RANGES Reference [...] OC Reviewed date:11/12/2024 08:31:52 PM Interpretation: Performing Lab:[facility], [address] [place] [phone] Notes/Report: Prothrombin Time Whole Bld POC 24.5 11.1-13.5 sec INR WHOLE BLOOD POC Reviewed date:12/01/2024 07:02:07 AM Interpretation: Performing Lab:[facility], [address] [place] [phone] Notes/Report: PT, INR - Anti [facility]ag [facility] 1.8 0.9-1.1 METER #: [id number] INTERNATIONAL NORMALIZED RATIO (INR) REFERENCE RANGES Reference [...] OC Reviewed date:12/01/2024 07:02:07 AM Interpretation: Performing Lab:[facility], [address] [place] [phone] Notes/Report: Prothrombin Time Whole Bld POC 21.1 11.1-13.5 sec INR WHOLE BLOOD POC Reviewed date:12/14/2024 10:11:09 AM Interpretation: Performing Lab:[facility], [address] [place] [phone] Notes/Report: PT, INR - Anti Coag Clinic 2.0 0.9-1.1 METER #: [id number] INTERNATIONAL NORMALIZED RATIO (INR) REFERENCE RANGES Reference [...] OC Reviewed date:12/14/2024 10:11:09 AM Interpretation: Performing Lab:[facility], [address] [place] [phone] Notes/Report: Prothrombin Time Whole Bld POC 24.1 11.1-13.5 sec INR WHOLE BLOOD POC Reviewed date:12/28/2024 09:33:50 AM Interpretation: Performing Lab:[facility], [address] [place] [phone] Notes/Report: PT, INR - Anti Coag Clinic 2.7 0.9-1.1 METER #: [id number] INTERNATIONAL NORMALIZED RATIO (INR) REFERENCE RANGES Reference [...] OC Reviewed date:12/28/2024 09:33:50 AM Interpretation: Performing Lab:[facility], [address] [place] [phone] Notes/Report: Prothrombin Time Whole Bld POC 32.7 11.1-13.5 sec INR WHOLE BLOOD POC Reviewed date:01/19/2025 01:54:32 PM Interpretation: Performing Lab:[facility], [address] [place] [phone] Notes/Report: PT, INR - Anti Coag Clinic 1.6 0.9-1.1 METER #: [id number] INTERNATIONAL NORMALIZED RATIO (INR) REFERENCE RANGES Reference [...] OC Reviewed date:01/19/2025 01:54:32 PM Interpretation: Performing Lab:[facility], [address] [place] [phone] Notes/Report: Prothrombin Time Whole Bld POC 18.9 11.1-13.5 sec INR WHOLE BLOOD POC Reviewed date:02/02/2025 03:50:50 PM Interpretation: Performing Lab:[facility], [address] [place] [phone] Notes/Report: PT, INR - Anti Coag Clinic 1.9 0.9-1.1 METER #: [id number] INTERNATIONAL NORMALIZED RATIO (INR) REFERENCE RANGES Reference [...] OC Reviewed date:02/02/2025 03:50:50 PM Interpretation: Performing Lab:[facility], [address] [place] [phone] Notes/Report: Prothrombin Time Whole Bld POC 22.4 11.1-13.5 sec Complete Blood Count Auto Di ff Reviewed date:02/09/2025 01:28:09 PM Interpretation: Performing Lab:[facility], [address] [place] [phone] Notes/Report: White Blood Count 10.3 4.8-10.8 X10*3/uL [...] NRBC Abs Auto 0.000 0.0-0.012 X10*3/uL Comprehensive [place]. Panel Fa st Reviewed date:02/09/2025 01:28:09 PM Interpretation: Performing Lab:[facility], [address] [place] [phone] Notes/Report: Sodium 142 135-145 mmol/L Potassium 3.8 [...] Panel Reviewed date:02/09/2025 01:28:09 PM Interpretation: Performing Lab:[facility], [address] [place] [phone] Notes/Report: Triglycerides 122 <150 mg/dL Desirable Triglyceride: [...] Total Reviewed date:02/09/2025 01:28:09 PM Interpretation: Performing Lab:[address] [phone] Notes/Report: Prostate Specific Ag Total 1.5 < [...] 30 93 9 (3)Catalona et al.:DEENA 277: 1490-0800 (1996) (4)Catalona et al.:DEENA 279: 8001-2551 (1997) (x)These estimates vary with age, ethnicity, [...] of disease. THIS TEST WAS PERFORMED AT: [facility] [address] [place] [phone] DEJAN CONWAY MD Free Prostate Spec Ag 0.5 INR WHOLE BLOOD POC Reviewed date:02/15/2025 08:16:17 PM Interpretation: Performing Lab:[facility], [address] [place] [phone] Notes/Report: PT, INR - Anti Coag Clinic 2.4 0.9-1.1 METER #: [id number] INTERNATIONAL NORMALIZED RATIO (INR) REFERENCE RANGES Reference [...] OC Reviewed date:02/15/2025 08:16:17 PM Interpretation: Performing Lab:[facility], [address] [place] [phone] Notes/Report: Prothrombin Time Whole Bld POC 28.9 11.1-13.5 sec INR WHOLE BLOOD POC Reviewed date:02/25/2025 01:03:25 PM Interpretation: Performing Lab:[facility], [address] [place] [phone] Notes/Report: PT, INR - Anti Coag Clinic 2.9 0.9-1.1 METER #: [id number] INTERNATIONAL NORMALIZED RATIO (INR) REFERENCE RANGES Reference [...] OC Reviewed date:02/25/2025 01:03:25 PM Interpretation: Performing Lab:[facility], [address] [place] [phone] Notes/Report: Prothrombin Time Whole Bld POC 35.4 11.1-13.[address] thoracic spine wo con Reviewed date:03/13/2025 07:03:37 AM Interpretation: Performing Lab: Notes/Report: [address] [address] [address] Scan Report Signed Patient: Jem Gallardo MR#: [id number] 3 : 1945 Acct:[id number] Age/Sex: 79 / M ADM Date: 03/05/25 Loc: HO.CT Attending Dr: Jose Felder MD Ordering Physician: Jose Felder MD Date of Service: 03/05/25 Procedure(s): CT thoracic spine wo IV con Accession Number(s): [id number] cc: Jose Felder MD Report Number: [id number]: Total DLP = 629.00 mGy-cm CLINICAL HISTORY: [...] in OV> 03/07/251914 DD/ 13 TD/TT: 03/07/251913 Prosthetics Lab Technician: [place] [address] CT Scan Report Signed Patient: Jem Gallardo MR#: [id number] 3 : 1945 Acct:[id number] Age/Sex: 79 / M ADM Date: 03/05/25 Loc: HO.CT Attending Dr: Jose Felder MD Ordering Physician: Jose Felder MD Date of Service: 03/05/25 Procedure(s): CT thoracic spine wo IV con Accession Number(s): [id number] cc: Jose Felder MD Report Number: [id number]: Total DLP = 629.00 mGy-cm CLINICAL HISTORY: [...] in OV> 03/07/251914 DD/ 13 TD/TT: 03/07/251913 Prosthetics Lab Technician: CT cervical spine wo con Reviewed date:03/13/2025 07:03:37 AM Interpretation: Performing Lab: Notes/Report: [address] [address] [address] Scan Report Signed Patient: Jem Gallardo MR#: [id number] 3 : 1945 Acct:[id number] Age/Sex: 79 / M ADM Date: 03/05/25 Loc: HO.CT Attending Dr: Jose Felder MD Ordering Physician: Jose Felder MD Date of Service: 03/05/25 Procedure(s): CT cervical spine wo IV con Accession Number(s): [id number] cc: Jose Felder MD Report Number: [id number]: Total DLP = 990.70 mGy-cm CLINICAL HISTORY: [...] in OV> 03/07/251856 DD/ 55 TD/TT: 03/07/251855 Prosthetics Lab Technician: [address] [address] [address] Scan Report Signed Patient: Jem Galalrdo MR#: [id number] 3 : 1945 Acct:[id number] Age/Sex: 79 / M ADM Date: 03/05/25 Loc: HO.CT Attending Dr: Jose Felder MD Ordering Physician: Jose Felder MD Date of Service: 03/05/25 Procedure(s): CT cervical spine wo IV con Accession Number(s): [id number] cc: Jose Felder MD Report Number: [id number]: Total DLP = 990.70 mGy-cm CLINICAL HISTORY: [...] in OV> 03/07/251856 DD/ 55 TD/TT: 03/07/251855 Prosthetics Lab Technician: INR WHOLE BLOOD POC Reviewed date:03/13/2025 07:03:37 AM Interpretation: Performing Lab:[address] [phone] Notes/Report: PT, INR - Anti Coag Clinic 1.8 0.9-1.1 METER #: [id number] INTERNATIONAL NORMALIZED RATIO (INR) REFERENCE RANGES Reference [...] OC Reviewed date:03/13/2025 07:03:37 AM Interpretation: Performing Lab:[address] [phone] Notes/Report: Prothrombin Time Whole Bld POC 21.6 11.1-13.5 sec INR WHOLE BLOOD POC Reviewed date:03/27/2025 05:06:06 AM Interpretation: Performing Lab:[facility], [address] [place] [phone] Notes/Report: PT, INR - Anti Coag Clinic 2.1 0.9-1.1 METER #: [id number] INTERNATIONAL NORMALIZED RATIO (INR) REFERENCE RANGES Reference [...] OC Reviewed date:03/27/2025 05:06:06 AM Interpretation: Performing Lab:[facility], [address] [place] [phone] Notes/Report: Prothrombin Time Whole Bld POC 24.9 11.1-13.5 sec INR WHOLE BLOOD POC Reviewed date:04/16/2025 07:53:07 PM Interpretation: Performing Lab:[facility], [address] [place] [phone] Notes/Report: PT, INR - Anti Coag Clinic 2.8 0.9-1.1 METER #: [id number] INTERNATIONAL NORMALIZED RATIO (INR) REFERENCE RANGES Reference [...] OC Reviewed date:04/16/2025 07:53:07 PM Interpretation: Performing Lab:[facility], [address] [place] [phone] Notes/Report: Prothrombin Time Whole Bld POC 33.5 11.1-13.5 sec INR WHOLE BLOOD POC Reviewed date:05/06/2025 11:18:32 AM Interpretation: Performing Lab:[facility], [address] [place] [phone] Notes/Report: PT, INR - Anti Coag Clinic 3.3 0.9-1.1 METER #: [id number] INTERNATIONAL NORMALIZED RATIO (INR) REFERENCE RANGES Reference [...] Prothrombin Time Whole Bld P OC Reviewed date:05/06/2025 11:18:32 AM Interpretation: Performing Lab:[facility], [address] [place] [phone] Notes/Report: Prothrombin Time Whole Bld POC 39.1 11.1-13.5 sec XR DEXA axial skeleton Reviewed date:05/16/2025 08:52:07 AM Interpretation: Performing Lab: Notes/Report: [facility]'[address] [place] [id number] Mammography Report Signed Patient: Jem Gallardo MR#: [id number] 3 : 1945 Acct:[id number] Age/Sex: 80 / M ADM Date: 05/12/25 Loc: HO.MAMMO Attending Dr: Jose Felder MD Ordering Physician: Jose Felder MD Results: Date of Service: 05/12/25 Follow Up: Procedure(s): XR DEXA axial skeleton Accession Number(s): [id number] cc: Jose Felder MD Reason For Exam: Q78.2 OSTEOPETROSIS EXAMINATION: DXA BONE DENSITY AXIAL HISTORY: Q78.2 OSTEOPETROSIS TECHNIQUE: [email or web address] Dual energy absorptiometry (DEXA) of the lumbar spine, total left hip, and femoral neck was performed. COMPARISON: There are no prior studies for comparison. FINDINGS: The bone mineral density of the lumbar spine is 1.934 g/cm2, corresponding to a T-score of 6.0, and a Z-score of 6.5. This is indicative of normal bone mineral density. The bone mineral density of the left total hip is 1.531 g/cm2, corresponding to a T-score of 3.0, and a Z-score of 4.0. This is indicative of normal bone mineral density. The bone mineral density of the left femoral neck is 1.376 g/cm2, corresponding to a T-score of 2.4, and a Z-score of 3.8. This is indicative of normal bone mineral density. FRACTURE RISK: The FRAX index suggests a risk of major osteoporotic fracture of 3.0%, and of hip fracture 0.5%. MM/XR DEXA axial skeleton IMPRESSION: Based on bone mineral density, and according to World Health Organization (WHO) criteria, the diagnosis is consistent with normal bone mineral density. Statistically, 68% of repeat scans fall within 1 SD (+/- 0.010 g/cm2 for AP spine L1-L4) and 1 SD (+/- 0.012 g/cm2 for femur total) FRAX is a trademark of the [employer] [place] Metabolic Bone Disease, a World Health Organization (WHO) Collaborating Center. Electronically signed by: Jose Charles MD 05/12/2025 11:20 AM EDT RP Dictated By: Jose Charles MD Signed By: <Electronically signed by Jose Charles MD in OV> 05/12/25 1120 DD/ 1024 TD/TT: 05/12/25 1030 Prosthetics Lab Technician: [facility] [address] [place] [address] Mammography Report Signed Patient: Jem Gallardo MR#: [id number] 3 : 1945 Acct:[id number] Age/Sex: 80 / M ADM Date: 05/12/25 Loc: HO.MAMMO Attending Dr: Jose Felder MD Ordering Physician: Jose Felder MD Results: Date of Service: 05/12/25 Follow Up: Procedure(s): XR DEX A axial skeleton Accession Number(s): [id number] cc: Jose Felder MD Reason For Exam: Q78 .2 OSTEOPETROSIS EXAMINATION: DXA BON E DENSITY AXIAL HISTORY: Q78.2 OSTEOPETROSIS TECHNIQUE: [email or web address] Dual energy absorptiometry (DEXA) of the lumbar spine, total left hip, and femoral neck was performed. COMPARISON: There ar e no prior studies for comparison. FINDINGS: The bone mineral density of the lumbar spine is 1.934 g/cm2, corresponding to a T-score of 6.0, and a Z-score of 6.5. This is indicative of normal bone mineral density. The bone mineral density of the left total hip is 1.531 g/cm2, corresponding to a T-score of 3.0, and a Z-score of 4.0. This is indicative of normal bone mineral density. The bone mineral density of the left femoral neck is 1.376 g/cm2, corresponding to a T-score of 2.4, and a Z-score of 3.8. This is indicative of normal bone mineral density. FRACTURE RISK: The FRAX index sugge sts a risk of major osteoporotic fracture of 3.0%, and of hip fracture 0.5%. ___ MM/XR DEXA axial skeleton IMPRESSION: Based on bone minera l density, and according to World Health Organization (WHO) criteria, the diagnosis is consistent with normal bone mineral density. Statistically, 68% o f repeat scans fall within 1 SD (+/- 0.010 g/cm2 for AP spine L1-L4) and 1 SD (+/- 0.012 g/cm2 for femur total) FRAX is a trademark of the [employer] [place] [employer] Metabolic Bone Disease, a World Health Organization (WHO) Collaborating Center. Electronically jes d by: Jose Charles MD 05/12/2025 11:20 AM EDT Dictated By: Jose Charles MD Signed By: <Electronically signed by Jose Charles MD in OV> 05/12/25 1120 DD/ 1024 TD/TT: 05/12/25 1030 Prosthetics Lab Technician: Reason For Referral Reason Evaluate and Treat New Lesion of Nose Diagnosis 1 Lesion of nose (J34. 89) Referral Organization Jose Felder III, MD Referring Provider First Name Jose Referring Provider Last Name Bradford Referring Provider Speciality Internal edicine Referred Provider [facility] [place] Referred Provider Specialty Dermatology General Notes Tamie [...] Last Name Bradford Referring Provider Speciality Internal edunc health Referred Provider [facility], Orthopedic Surgeons Referred Provider Specialty Orthopedic Rita montaño General Notes Tamie You 01/31/2025 01:54:41 PM > Referral and progress note faxed. Referral Priority Urgent Referral Appointment Date 05/19/2025 Reason eval and treat needs sleep study daytime somnolence Diagnosis 1 Daytime somnolence ( R40.0) Referral Organization Jose Felder III, MD Referring Provider First Name Jose Referring Provider Last Name Felder Referring Provider Speciality Internal edicine Referred Provider [facility] er, Pulmonology Referred Provider Specialty Pulmonary [place] [facility] General Notes Bhavana Salinas CMA 02/10 09:06:58 AM > ref/demo/progress note/labs faxed to [place] [facility] dept Referral Priority Routine Referral Appointment [...] a day Active Warfarin Sodium 5 MG TAKE 1 TABLET BY MO UTH ONCE DAILY Active traZODone HCl 50 MG TAKE 1 TABLET BY BRIANNE TH DAILY Active Simvastatin 40 MG TAKE 1 TABLET BY BRIANNE TH DAILY Active Losartan Potassium 25 MG TAKE 1 TABLET B Y MOUTH EVERY DAY Active Cyclobenzaprine HCl 5 MG 1 tablet Orally every 8 hours if needed 03/10/2025 Active Immunizations Vaccine Route Administration Date Status [...] Problem Status W/U Status Risk Notes Problem 9826876 Former smoker (Z87.891) Active confirmed He is highly motivated not to smoke and has a plan to prevent relapse in times of stress or illness. Problem 201609701 Overweight (BMI 25.0-29.9) (E66.3) Active confirmed His body mass index is 27. We discussed diet and nutrition. We reviewed his weight loss strategy. Problem 494900667 Overweight (E66.3) Active confirmed He has gained 7 pounds. His body mass index is 27. We discussed his weight loss strategy. I recommended aggressive weight loss through regular physical activity and diet restricted in calories. Problem 84222899 Hypertension (I10) Active confirmed His blood pressure has been controlled and no change in his regimen was made today. Problem 91049522 Other chronic pain (G89.29) Active confirmed Problem 299414915 Solitary pulmonary nodule (R91.1) Active confirmed Problem 15769826 Cervical radiculopathy (M54.12) Active confirmed Follows vigorous exercise, driving golf balls, and radiates into the side of the neck and the upper back. He is currently using heat and rest Tylenol ibuprofen and massage. If it does not clear quickly he will be given dexamethasone. If necessary MRI imaging of the neck to assess for a herniated disc will be done. Problem 343505503 Environmental allergies (Z91.09) Active confirmed He has noted itching around his eyes and nasal congestion. He is using iznw-dwr-lxram er medication. I recommended fluticasone and loratadine. Problem 694876047 Diabetes mellitus type 2 in nonobese (E11.9) Active confirmed He was continued on current therapy. He will be back in the office in the near future to reevaluate this problem. 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 Problem 212247172 DVT (deep venous thrombosis) (I82.409) Active confirmed He has had no blood clots. Problem 594690594 Lung cancer (C34.90) Active confirmed He remains in remission with no relapse. He is no longer smoking. Problem Thoracic back pain (585923816) Thoracic back pain (M54.6) Active confirmed The x-rays showed age related degenerative changes, but no specific cause of the back pain. An MRI is not possible because of the metal plates and his spine. A CT scan of his cervical and thoracic spine has been ordered to evaluate discs and the spinal canal. Problem 6143085 Protein S deficiency (D68.59) Active confirmed He is doing well with his chronic anticoagulatio n. The protein S deficiency is no indication for lifelong therapy. Problem Neck pain (12072799) Cervical pain (neck) (M54.2) Active confirmed He has had neurosurgery in the past on his lower cervical spine leaving him with a metal plate and a . This was done by who is now at [facility]. Problem 84219199 Other depression (F32.89) Active confirmed His medication was increased to 100 mg daily. A follow-up visit was arranged. He has no suicidal ideation and is beginning to experience improvement. Problem 452321434 Benign prostatic hyperplasia, unspecified whether lower urinary tract symptoms present (N40.0) Active confirmed He reports rising from sleep about twice a night to urinate. We have discussed some lifestyle modifications he could make to reduce this nocturia. Problem 847561677 Sensorineural hearing loss (SNHL) of both ears (H90.3) Active confirmed compeensated with hearing aids. Problem 26506480 Chronic nonintractable headache, unspecified headache type (R51) Active confirmed His headaches are improved. They're less frequent. He will continue on current therapy. Problem Disease caused by Severe acute respiratory syndrome coronavirus 2 (disorder) (865822539) COVID-19 virus infection (U07.1) Active confirmed He has recovered from his collins virus infection with no lung symptoms. Problem 346134479938 Skin lesion of face (L98.9) Active confirmed The area on his nose has the appearance of an actinic keratosis. It has only recently appeared. I have made a referral to dermatology for definitive diagnosis and treatment. Problem 361129560 Recurrent low back pain (M54.50) Active confirmed He will use heat and rest acetaminophen and ibuprofen. He was referred back to pain management. Vital Signs Heart Rate 85 /min 05/18/2025 Temperature 98.1 degrees Fahrenheit 05/18/2025 Respiratory Rate 16 /min 03/10/2025 Oximetry 98 % 02/09/2025 Blood pressure diastolic 74 mm Hg 05/18/2025 Height 71 in 05/18/2025 Blood pressure systolic 131 mm Hg 05/18/2025 Weight 194 lbs 05/18/2025 BMI 27.05 kg/m2 05/18/2025 Encounters Encounter Location Date Provider Diagnosis Jose Felder III, MD [address] [place] [address] [place] [address] 06/07/2024 Jose Felder 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 ; Hypertension I10 ; Overweight E66.3 ; Episodic memory loss R41.3 ; Former smoker Z87.891 and Lung cancer C34.90 Jose Felder III, MD [address] [place] [address] [place] [address] 08/23/2024 Jose Felder COVID-19 virus infec tion U07.1 ; 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 ; Former smoker Z87.891 ; Lung cancer C34.90 ; Environmental allergies Z91.09 and Overweight E66.3 Jose Felder III, MD [address] [place] [address] [place] [address] 10/04/2024 Jose Felder COVOTILIO-19 virus infec tion U07.1 ; Chronic nonintractable headache, unspecified headache type R51 ; Benign prostatic hyperplasia, unspecified whether lower urinary tract symptoms present N40.0 ; 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 ; Former smoker Z87.891 ; Lung cancer C34.90 ; Environmental allergies Z91.09 ; Overweight (BMI 25.0-29.9) E66.3 ; 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 ; Other depression F32.89 and Overweight E66.3 Jose Felder III, MD [address] [place] [address] [place] [address] 10/15/2024 Jose Felder Skin lesion of face L98.9 ; 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 ; Former smoker Z87.891 ; Lung cancer C34.90 ; Environmental allergies Z91.09 ; Hypertension I10 ; DVT (deep venous thrombosis) I82.409 ; Overweight (BMI 25.0-29.9) E66.3 ; Chronic nonintractable headache, unspecified headache type R51 ; 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 and Other depression F32.89 Jose Felder III, MD [address] [place] [address] [place] [address] 01/27/2025 Jose Felder 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 ; Recurrent low back pain M54.50 ; Former smoker Z87.891 ; Lung cancer C34.90 ; Environmental allergies Z91.09 ; Chronic nonintractable headache, unspecified headache type R51 ; Overweight E66.3 and Benign prostatic hyperplasia, unspecified whether lower urinary tract symptoms present N40.0 Jose Felder III, MD [address] [place] [address] [place] [address] 02/09/2025 Jose Felder Suspected sleep apne a R29.818 ; Labyrinthitis of both ears H83.03 ; 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 ; Lung cancer C34.90 ; Overweight (BMI 25.0-29.9) E66.3 ; DVT (deep venous thrombosis) I82.409 ; Hypertension I10 ; 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 ; Benign prostatic hyperplasia, unspecified whether lower urinary tract symptoms present N40.0 and Former smoker Z87.891 Jose Felder III, MD [address] [place] [address] [place] [address] 02/16/2025 Jose Felder Thoracic back pain M 54.6 ; Former smoker Z87.891 ; Lung cancer C34.90 ; Environmental allergies Z91.09 ; Overweight (BMI 25.0-29.9) E66.3 ; 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 ; Other depression F32.89 and Benign prostatic hyperplasia, unspecified whether lower urinary tract symptoms present N40.0 Jose Felder III, MD [address] [place] [address] [place] [address] 02/24/2025 Jose Felder Thoracic back pain M 54.6 ; Cervical pain (neck) M54.2 ; 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 ; Former smoker Z87.891 ; Lung cancer C34.90 ; Overweight (BMI 25.0-29.9) E66.3 ; Chronic nonintractable headache, unspecified headache type R51 and 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 Jose Felder III, MD [address] [place] [address] [place] [address] 03/10/2025 Jose Felder Former smoker Z87.89 1 ; Cervical radiculopathy M54.12 ; Hypertension I10 ; Lung cancer C34.90 ; 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 ; Overweight (BMI 25.0-29.9) E66.3 ; 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 ; DVT (deep venous thrombosis) I82.409 and Environmental allergies Z91.09 Jose Felder III, MD [address] [place] [address] [place] [address] 03/15/2025 Jose Felder Hypertension I10 ; P ain in thoracic spine M54.6 ; Overweight (BMI 25.0-29.9) E66.3 ; 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 ; Former smoker Z87.891 ; Lung cancer C34.90 and Environmental allergies Z91.09 Jose Felder III, MD [address] [place] [address] [place] [address] 05/18/2025 Jose Felder Lung cancer C34.90 ; [...] 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 and Cervical radiculopathy M54.12 Jose Felder III, MD [address] [place] [address] [place] [address] 08/23/2024 Jose Felder III, MD [address] [place] [address] [place] [address] 08/31/2024 Jose BACK-19 virus infec tion U07.1 Jose Felder III, MD [address] [place] [address] [place] [address] 08/31/2024 Jose BACK-19 virus infec tion U07.1 Jose Felder III, MD [address] [place] [address] [place] [address] 09/17/2024 Jose Felder III, MD [address] [place] [address] [place] [address] 02/08/2025 Jose Felder III, MD [address] [place] [address] [place] [address] 03/02/2025 Jose Felder Assessments Encounter Date Diagnosis [...] was done by who is now at [facility]. 03/10/2025 Former smoker (ICD-1 0 - [...] to the office at the pain relapses. 05/18/2025 Former smoker (ICD-1 0 - Z87.891) He is highly motivated not to smoke and has a plan to prevent relapse in times of stress or illness. 05/18/2025 Lung cancer (ICD-10 - C34.90) He remains in remission with no relapse. He is no longer smoking. 08/31/2024 COVID-19 virus infection (ICD-10 - U07.1) [...] We reviewed his weight loss strategy. 05/18/2025 Overweight (BMI 25.0-29.9) (ICD-10 - E66.3) [...] eyes and nasal congestion. He is using oyzm-ept-poymvmz medication. I recommended fluticasone and loratadine. 02/24/2025 [...] near future to reevaluate this problem. 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 06/07/2024 Former smoker (ICD-1 0 - Z87.891) He is highly motivated not to smoke and has a plan to prevent relapse in times of stress or illness. 08/23/2024 Environmental allergies (ICD-10 - Z91.09) He has noted itching around his eyes and nasal congestion. He is using npdk-lut-yohetzg medication. I recommended fluticasone and loratadine. 10/04/2024 Former smoker (ICD-1 0 - Z87.891) He is highly motivated not to smoke and has a plan to prevent relapse in times of stress or illness. 10/15/2024 Environmental allergies (ICD-10 - Z91.09) He has noted itching around his eyes and nasal congestion. He is using hgei-aoj-ezoxctn medication. I recommended fluticasone and loratadine. 01/27/2025 Environmental allergies (ICD-10 - Z91.09) He has noted itching around his eyes and nasal congestion. He is using daqc-uwv-wohhbio medication. I recommended fluticasone and loratadine. 02/09/2025 [...] in times of stress or illness. 05/18/2025 Environmental allergies (ICD-10 - Z91.09) He has noted itching around his eyes and nasal congestion. He is using hyas-fyt-acketcx medication. I recommended fluticasone and loratadine. 06/07/2024 [...] relapse. He is no longer smoking. 05/18/2025 Protein S deficiency (ICD-10 - D68.59) He is doing well with his chronic anticoagulation. The protein S deficiency is no indication for lifelong therapy. 10/04/2024 Environmental allergies (ICD-10 - Z91.09) He has noted itching around his eyes and nasal congestion. He is using rird-ben-hnpmvfd medication. I recommended fluticasone and loratadine. 10/15/2024 [...] eyes and nasal congestion. He is using cxho-fva-illdill medication. I recommended fluticasone and loratadine. 05/18/2025 Other depression (ICD-10 - F32.89) His [...] He has had no blood clots. 05/18/2025 Benign prostatic hyperplasia, unspecified whether lower [...] eyes and nasal congestion. He is using fdto-swl-mfmvhxl medication. I recommended fluticasone and loratadine. 05/18/2025 Chronic nonintractable headache, unspecified headache type [...] in times of stress or illness. 05/18/2025 DVT (deep venous thrombosis) (ICD-10 - I82.409) He has had no blood clots. 10/04/2024 Overweight (ICD-10 - E66.3) He has [...] and is beginning to experience improvement. 05/18/2025 Hypertension (ICD-10 - I10) His blood pressure has been controlled and no change in his regimen was made today. 05/18/2025 Sensorineural hearin g loss (SNHL) of both ears (ICD-10 - H90.3) Mrs. grandesated with hearing aids. 05/18/2025 Diabetes mellitus type [...] disc will be done. Plan Of Treatment Pending Test Test Name Order Date PROFILE, FASTING (COMPREHENSIVE METABOLI C) 12/09/2022 PROFILE, FASTING (COMPREHENSIVE METABOLI C) 11/18/2019 PROFILE, FASTING (COMPREHENSIVE METABOLI C) 05/18/2025 PROFILE, FASTING (COMPREHENSIVE METABOLI C) 01/27/2024 PROFILE, [...] 08/12/2022 LIPID PANEL 08/19/2019 LIPID PANEL 06/19/2022 PSA, TOTAL 06/19/2022 PSA, TOTAL 05/18/2025 PSA, TOTAL 01/27/2024 PSA, TOTAL 12/09/2022 PSA, TOTAL 09/30/2023 PSA, TOTAL 10/04/2024 PSA, TOTAL 07/11/2021 PSA, TOTAL+FREE 02/26/2021 CBC w DIFF 06/07/2024 CBC w DIFF 07/11/2021 CBC w DIFF 01/25/2020 CBC w DIFF 06/19/2022 CBC w DIFF 10/14/2018 CBC w DIFF 03/26/2022 CBC w DIFF 05/08/2017 CBC w DIFF 01/27/2025 CBC w DIFF 11/18/2019 CBC w DIFF 05/18/2025 CBC w DIFF 02/26/2021 CBC w DIFF 11/21/2017 CBC w DIFF 12/09/2022 CBC w DIFF 03/15/2025 CBC w DIFF 09/30/2023 CBC w DIFF 10/30/2020 CBC w DIFF 10/04/2024 CBC w DIFF 11/09/2021 CBC w DIFF 08/12/2022 CBC w DIFF 08/19/2019 CBC w DIFF 07/06/2018 SED RATE (ESR) 03/26/2022 CT THORACIC SPINE NO CONTRAST 02/24/2025 BONE DENSITY DEXA 02/16/2025 CBC WITH AUTO DIFF 06/18/2023 CBC WITH AUTO DIFF 01/27/2024 Lipid Panel 10/04/2024 Lipid Panel 06/18/2023 Lipid Panel 06/07/2024 Lipid Panel 07/11/2021 Lipid Panel 01/27/2025 Lipid Panel 05/18/2025 Lipid Panel 01/27/2024 Lipid Panel 03/15/2025 Lipid Panel 09/30/2023 PSA Free and Total 01/27/2025 Vitamin D 25-OH Total 05/18/2025 CT cervical spine wo con 02/24/2025 Next Appt Details Provider Name:Jose Drew Bradford , 10/05/2025 02:30:00 PM, [address] [place] [address] OCHOA NOLASCO, [place], [address], Insurance Providers Payer Name Payer Address Payer Phone Subscriber Number Group Number Insured Name Patient Relationship to Insured Coverage Start Date Coverage End Date [employer] [address] [place], [place] [id number] Jem Gallardo Self - patient is the insured 4 MEDICARE NGS [address] [place] [address] [id number] Jem Gallardo Self - patient is the insured Medical (General) History Medical History History ICD Code migraine headaches allergies hypertension anal fissure staphylococcal infection 1999 chronic lymphocytic leukemia in [facility] lung cancer, non-small cell obesity former smoker dvt february 2015 right leg protein S deficiency Covid 22 August 2024 Surgical History Surgery Date(Month/Year) No history Cyst removed from his back 08/2022 cataract right eye 06/2018 FNA superior mediastinal mass Hospitalization History Reason Date(Month/Year) No history
== END 2025-05-20 10:44 | disposition home or self-care (01) ==
LOC: HO.HOS 09:46
PROVIDERS: Visit Provider Physical Medicine & Rehabilitation
DX: M79.18 Myalgia, other site (principal); M47.812 Spondylosis without myelopathy or radiculopathy, cervical region
CPT/HCPCS: 99204

== ENCOUNTER → 2025-05-20 09:45 | Outpatient (BNVA) | payer MEDICARE, SELFPAY | PROVIDERS: Visit Provider Physical Medicine & Rehabilitation | DX: M47.812 Spondylosis without myelopathy or radiculopathy, cervical region (principal); M79.18 Myalgia, other site | CPT/HCPCS: 99202 ==

== ENCOUNTER → 2025-05-26 08:49 | Outpatient (REF) | payer MEDICARE, SELFPAY | LOC: HO.SL 08:49 | PROVIDERS: PCP Internal Medicine Medical Oncology; Visit Provider Internal Medicine | DX: Z13.89 Encounter for screening for other disorder (principal) ==

== ENCOUNTER → 2025-05-27 08:51 | Outpatient (BNVA) | payer MEDICARE, SELFPAY | PROVIDERS: PCP Internal Medicine Medical Oncology; Visit Provider Internal Medicine Medical Oncology | DX: I82.401 Acute embolism and thrombosis of unspecified deep veins of right lower extremity (principal); Z51.81 Encounter for therapeutic drug level monitoring; Z79.01 Long term (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 | CPT/HCPCS: 85610; 99211 ==

== ENCOUNTER 2025-06-24 08:54 | Outpatient (AMB) | payer MEDICARE, SELFPAY ==
--- OUTSIDE RECORDS SUMMARY | 2025-01-27 06:30 | XMS_ITS ---
Author Organization Jose Felder III, MD Address [address] [place] [address] [place] [address] Care Team Providers Care Magnetic Resonance Imaging Director Name Role Phone Dr. Jose Felder III Primary Care Provider [phone] Allergies Allergen (clinical drug ingredient) Drug/Non Drug Allergy documented on EMR Reaction Allergy Type Onset Date Status No Known Drug Allergy Unknown Drug Allergy Active Seasonale Unknown Drug Allergy Active Reason For Referral Reason Urgent Referral Requ est Evaluate and Treat Questioning injections in spine Back Pain Questioning if needs injections Diagnosis 1 Other chronic pain ( G89.29) Diagnosis 2 Back pain (M54.9) Referral Organization Jose Felder III, MD Referring Provider First Name Jose Referring Provider Last Name Bradford Referring Provider Speciality Internal M edicine Referred Provider [facility], [facility]opedic Surgeons Referred Provider Specialty [facility] [place] General Notes D Tamie 01/31/2025 01:54:41 PM > Referral and progress note faxed. Referral Priority Urgent Referral Appointment Date 05/19/2025 REASON FOR VISIT Lower back pain x 3 weeks, Middle back painx 3 weeks, History of lung cancer, History of CLL, Allergies, History of DVT, Thrombophilia, Chronic anticoagulation, Benign prostatic Medications Medication SIG (Take, Route, Frequency, Duration) Notes Start Date End Date Status Simvastatin 40 MG 1 Tablet Orally Once a day Active Venlafaxine HCl 50 MG 1 tablet with food Orally Once a day 04/16/2023 Active SUMAtriptan Succinate 100 MG TAKE 1 TABLET BY MOUTH EVERY DAY AT THE ONSET OF MIGRAINE; MAY REPEATevery 22 HOURS IF when SYPTOMS PERSISTS; MAX OF 2 TS/ DAY Orally Once a day Active Losartan Potassium 25 MG as directed Ora lly Once a day Active Warfarin Sodium 5 [...] Problem Status W/U Status Risk Notes Problem [id number] Recurrent low back pain (M54.50) Active confirmed He will use hea t and rest acetaminophen and ibuprofen. He was referred back to pain management. 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 01/27/2025 Recurrent low back pain (ICD-10 - M54.50) He will use heat and rest acetaminophen and ibuprofen. He was referred back to pain management. 01/27/2025 Former smoker (ICD-1 0 - Z87.891) He is highly motivated not to smoke and has a plan to prevent relapse in times of stress or illness. 01/27/2025 Lung cancer (ICD-10 - C34.90) He remains in remission with no relapse. He is no longer smoking. 01/27/2025 Environmental allergies (ICD-10 - Z91.09) He has noted itching around his eyes and nasal congestion. He is using kntf-nhp-btkkjyl medication. I recommended fluticasone and loratadine. 01/27/2025 Chronic nonintractable headache, unspecified headache type (ICD-10 - R51) His headaches are improved. They're less frequent. He will continue on current therapy. 01/27/2025 Overweight (ICD-10 - E66.3) He has gained 7 pounds. His body mass index is 27. We discussed his weight loss strategy. I recommended aggressive weight loss through regular physical activity and diet restricted in calories. 01/27/2025 Benign prostatic hyperplasia, unspecified whether lower urinary tract symptoms present (ICD-10 - N40.0) He reports rising from sleep about twice a night to urinate. We have discussed some lifestyle modifications he could make to reduce this nocturia. Plan Of Treatment Medication Medication Name Sig Start Date Stop Date Notes Simvastatin 40 MG 1 Tablet Orally Once a day Venlafaxine HCl 50 MG 1 tablet with food Orally Once a day 04/16/2023 SUMAtriptan Succinate 100 MG TAKE 1 TABL ET BY MOUTH EVERY DAY AT THE ONSET OF MIGRAINE; MAY REPEATevery 22 HOURS IF when SYPTOMS PERSISTS; MAX OF 2 TS/ DAY Orally Once a day Losartan Potassium 25 MG as directed Orally Once a day Warfarin Sodium 5 MG 1 1/2 tablet Orally Once a day Pending Test Test Name Order Date PROFILE, FASTING (COMPREHENSIVE METABOLI C) 01/27/2025 CBC w DIFF 01/27/2025 Lipid Panel 01/27/2025 PSA Free and Total 01/27/2025 Referrals Referral Date Details 01/27/2025 01/27/2025, Urgent R eferral Request Evaluate and Treat Questioning injections in spine Back Pain Questioning if needs injections, [facility] Next Appt Details Follow Up: 3 Weeks, Reason: OV Provider Name:Jose Felder , 10/05/2025 02:30:00 PM, [address] [place] [address] [address], [place], [address], Progress Notes * Jem QUINTEROSDOB:1945 ( 79 yo M)Acc No.[id number]:01/27/2025 Progress Notes Patient: Jem JI Provider: Annalise Felder MD :1945 A ge:79 Y S ex:Male Date:01/27/2025 Address: [address], [facility] Subjective: * Chief Complaints: * L ower back pain x 3 weeksMiddle back painx 3 weeksHistory of lung cancerHistory of CLLAllergiesHistory of DVTThrombophiliaChronic anticoagulationBenign prostatic * HPI: C OVID-19 Screening: He returns because of an increase in his low back pain. He has a long history of lumbar radiculopathy and has had injections into his spine in the past which relieved him. He has had no recent exertional stresses but reports the pain is now about dull. He was referred back to pain management for further injections. He will use a combination of acetaminophen and ibuprofen. X-rays will be obtained if the pain does not resolve rapidly.There was no sign of recurrent lymphoid neoplasm or pulmonary cancer today. There was no sign of any blood clotting.? He rises from sleep once or twice a night to urinate. Questions H ave you had any new onset fever, chills, cough, congestion, sore throat, shortness of breath, muscle aches? N o * ROS: G eneral/Constitutional: pain E xacerbation of low back pain. C hills d enies. F atigue a dmits. F ever d enies. E NT: Decreased hearing d enies. R espiratory: Cough d enies. C ardiovascular: [...] enies. R nik d enies. S kin lesion(s)?denies. N eurologic: Difficulty speaking d enies. 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 He does not mention his diet, exercise habits, work environment, or living situation. * Medications: T akingVenlafaxine HCl 50 MG Tablet 1 tablet with food Orally Once a day SUMAtriptan Succinate 100 MG Tablet TAKE 1 TABLET BY MOUTH EVERY DAY AT THE ONSET OF MIGRAINE; MAY REPEATevery 22 HOURS IF when SYPTOMS PERSISTS; MAX OF 2 TS/ DAY Orally Once a day Simvastatin 40 MG Tablet 1 Tablet Orally Once a day Warfarin Sodium 5 MG Tablet 1 1/2 tablet Orally Once a day Losartan Potassium 25 MG Tablet as directed Orally Once a day Medication List reviewed and reconciled with the patientTaking Venlafaxine HCl 50 MG Tablet 1 tablet with food Orally Once a day Taking SUMAtriptan Succinate 100 MG Tablet TAKE 1 TABLET BY MOUTH EVERY DAY AT THE ONSET OF MIGRAINE; MAY REPEATevery 22 HOURS IF when SYPTOMS PERSISTS; MAX OF 2 TS/ DAY Orally Once a day Taking Simvastatin 40 MG Tablet 1 Tablet Orally Once a day Taking Warfarin Sodium 5 MG Tablet 1 1/2 tablet Orally Once a day Taking Losartan Potassium 25 MG Tablet as directed Orally Once a day Medication List reviewed and reconciled with the patient * Allergies: Rita Moser Known Drug Allergyno[Allergies Verified] Objective: * Vitals: H t: 71, Wt:193, BMI:26.92, BP:122/87, HR:72, Temp:98.4, Wt-k.54. * P ast Orders: Lab:INR WHOLE BLOOD POC * Collection Date 01/18/2025 12/28/2024 12/14/2024 11/30/2024 11/12/2024 10/29/2024 Collection Time 09:01 AM 08:26 AM 08:27 AM 08:29 AM 08:54 AM 08:23 AM Order Date 01/18/2025 12/28/2024 12/14/2024 11/30/2024 10/29/2024 INR WHOLE BLOOD POC 1.6 H (Ref Range: 0.9-1.1) 2.7 H (Ref Range: 0.9-1.1) 2.0 H (Ref Range: 0.9-1.1) 1.8 H (Ref Range: 0.9-1.1) 2.0 H (Ref Range: 0.9-1.1) 2.5 H (Ref Range: 0.9-1.1) * Lab:Prothrombin Time Whole B ld POC * Collection Date 01/18/2025 12/28/2024 12/14/2024 11/30/2024 11/12/2024 10/29/2024 Collection Time 09:01 AM 08:26 AM 08:27 AM 08:29 AM 08:54 AM 08:23 AM Order Date 01/18/2025 12/28/2024 12/14/2024 11/30/2024 10/29/2024 Prothrombin Time Whole Bld POC 18.9 H (Ref Range: 11.1-13.5 sec) 32.7 H (Ref Range: 11.1-13.5 sec) 24.1 H (Ref Range: 11.1-13.5 sec) 21.1 H (Ref Range: 11.1-13.5 sec) 24.5 H (Ref Range: 11.1-13.5 sec) 30.4 H (Ref Range: 11.1-13.5 sec) * Examination: G eneral Examination: GENERAL APPEARANCE: p leasant, well nourished, well developed, in no acute distress, calm and relaxed, overweight, man. HEAD: a traumatic, normocephalic. EYES: e talon, perrla, anicteric, conjugate. EARS: n ormal. NOSE: s eptum intact. ORAL CAVITY: n ormal, unremarkable. NECK/THYROID: n o jugular venous distention, no carotid bruit, thyroid normal. LYMPH NODES: n o enlarged lymph nodes,spleen normal. SKIN: n o suspicious lesions, anicteric. HEART: n o clicks, gallops, murmurs, or rubs, regular rhythm, S1, S2 normal, no s3, or vascular bruits. LUNGS: c lear to auscultation . BREASTS: no masses palpable bilaterally. ABDOMEN: b owel sounds normal, no ascites, no organomegaly, no mass, overweight. RECTAL EXAM: n ot examined. MUSCULOSKELETAL: e xtremities unremarkable, no clubbing, cyanosis or edema, Old scar base right neck, Bilateral muscle spasm lumbar spine with decreased range of motion and pain. PERIPHERAL PULSES: n ormal. NEUROLOGIC: a lert and oriented, cranial nerves 2-12 grossly intact, deep tendon reflexes 2+ symmetrical, motor strength normal upper and lower extremities, sensory exam intact. PSYCH: a lert, oriented. Assessment: * Assessment: 1. R ecurrent low back pain - M54.50 (Primary) N otes :He will use heat and rest acetaminophen and ibuprofen. He was referred back to pain management. 2 . C hronic lymphoid leukemia - [...] eyes and nasal congestion. He is using bzsw-ygo-xnwermr medication. I recommended fluticasone and loratadine. 6 . C hronic nonintractable headache, unspecified headache type - R51 ? N otes :His headaches are improved. They're less frequent. He will continue on current therapy. 7 . O verweight - E66.3 N otes :He has gained 7 pounds. His body mass index is 27. We discussed his weight loss strategy. I recommended aggressive weight loss through regular physical activity and diet restricted in calories. 8 . B enign prostatic hyperplasia, unspecified whether lower urinary tract symptoms present - N40.0 N otes :He reports rising from sleep about twice a night to urinate. We have discussed some lifestyle modifications he could make to reduce this nocturia. Plan: * Treatment: 2. B enign prostatic hyperplasia, unspecified whether lower urinary tract symptoms present L AB: PROFILE, FASTING (COMPREHENSIVE METABOLIC) L AB: CBC w DIFF L AB: Lipid Panel L AB: PSA Free and Total 3. O thers Continue Losartan Potassium Tablet, 25 MG, as directed, Orally, Once a day; C ontinue Warfarin Sodium Tablet, 5 MG, 1 1/2 tablet, Orally, Once a day; C ontinue Venlafaxine HCl Tablet, 50 MG, 1 tablet with food, Orally, Once a day; C ontinue SUMAtriptan Succinate Tablet, 100 MG, TAKE 1 TABLET BY MOUTH EVERY DAY AT THE ONSET OF MIGRAINE; MAY REPEATevery 22 HOURS IF when SYPTOMS PERSISTS; MAX OF 2 TS/ DAY, Orally, Once a day; C ontinue Simvastatin Tablet, 40 MG, 1 Tablet, Orally, Once a day. Referral To:[facility] Orth[facility] Reason:Urgent Referral Request Evaluate and Treat Questioning injections in spine Back Pain * Procedure Codes: * Preventive Medicine: Counseling: C are goal follow-up plan: Counseling for abnormal BMI given Y es Above Normal BMI Follow-up D ietary management education, guidance, and counseling S moking/Tobacco Use Patient counseled on the dangers of tobacco use and urged to quit. 0 01/20/2025 * Follow Up: 3 Weeks (Reason: OV) * Images: * Sign off status: Completed true * Provider: Annalise Felder MD Date: 0 01/27/2025 Generated for Frandy mittal/Apple/Amauri on: 1 08/24/2024 09:03 AM EST History and Physical Notes * [...] venous di stention, no carotid bruit, thyroid normal HEART: no clicks, gallops, murmurs, or rubs, [...] extremities unremark able, no clubbing, cyanosis or edema, Old scar base right neck, Bilateral muscle spasm lumbar spine with decreased range of motion and pain LYMPH NODES: no enlarged lymph no cristi,spleen normal RECTAL EXAM: not examined PSYCH: alert, oriented ORAL CAVITY: normal, unremarkable Consultation Request Notes Referral Date Referring Provider Referred Provider Not es 01/27/2025 Jose Felder [facility], [facility] Urgent Referral Request Evaluate and Treat Questioning injections in spine Back Pain Questioning if needs injections
--- OUTSIDE RECORDS SUMMARY | 2025-02-03 07:15 | XMS_ITS ---
Author Organization Jose Felder III, MD Address [address] [place] [address] [address] [place] [place] [address] Care Team Providers Care Exchange Engineer Name Role Phone Dr. Jose Felder III Primary Care Provider REASON FOR VISIT Follow up Social History Sex Assigned At : Social History Observation Description Sex Assigned At Male Encounters Encounter Location Date Provider Diagnosis Jose Felder III, MD [address] [place] [address] [place] [address] 02/03/2025 Jose Felder Plan Of Treatment Next Appt Details Provider Name:Jose Felder , 10/05/2025 02:30:00 PM, [address] [place] [address] [place], [address], Progress Notes * Jem QUINTEROSDOB:1945 ( 80 yo M)Acc No.[id number]:02/03/2025 Progress Notes Patient: Jem JI Provider: Annalise eFlder MD :1945 A ge:79 Y S ex:Male Date:02/03/2025 Address:[id number] Subjective: * Chief Complaints: * 1 . Follow up. * Medical History: Objective: * Vitals: Assessment: Plan: * Treatment: * Images: * The named appointment provid er may or may not be the originator of this progress note, and it is not deemed complete until electronically signed by the appointment provider. Sign off status: Pending * Provider: Annalise Felder MD Date: 0 02/03/2025 Generated for Frandy mittal/Apple/Amauri on: 1 08/24/2024 09:04 AM EST
--- OUTSIDE RECORDS SUMMARY | 2025-02-08 09:26 | XMS_ITS ---
Author Organization Jose Felder III, MD Address [address] [place] [place] [address] Care Team Providers Care Animal Ride Attendant Name Role Phone Dr. Jose Felder III Primary Care Provider REASON FOR VISIT Regarding medication list Social History Sex Assigned At : Social History Observation Description Sex Assigned At Male Encounters Encounter Location Date Provider Diagnosis Jose Felder III, MD [address] [place] [address] [place] [address] 02/08/2025 Jose Felder Plan Of Treatment Next Appt Details Provider Name:Jose Felder , 10/05/2025 02:30:00 PM, [address] [place] [address] [place], [address], Progress Notes * Jem QUINTEROSDOB:1945 ( 79 yo M)Acc No.[id number]:02/08/2025 Patient: Jem JI :1945 A ge:79 Y S ex:Male Address:[place] [address] * true * Date: Generated for Printi ng/Faxing/eTransmitting on: 08/24/2024 09:03 AM EST
--- OUTSIDE RECORDS SUMMARY | 2025-02-09 08:15 | XMS_ITS ---
Author Organization Jose Felder III, MD Address [address] [place] [address] [place] [address] Care Team Providers Care Drop Wire Stringer Name Role Phone Dr. Jose Felder III [...] Provider Speciality Internal M edicine Referred Provider [facility] er, Pulmonology Referred Provider Specialty Pulmonary [facility] General Notes Bhavana Salinas CMA 02/10 09:06:58 AM > ref/demo/progress note/labs faxed to [place] pulmonary dept Referral Priority Routine Referral Appointment [...] Date Provider Diagnosis Jose Felder III, MD [address] [place] [address] DR ORDONEZ, CALEB [address] 02/09/2025 Jose Felder Suspected sleep apne a [...] treat needs sleep study daytime somnolence, Pulmonology [facility] Next Appt Details Follow Up: 1 Week, Reason: a s scheduled Provider Name:Jose Felder , 10/05/2025 02:30:00 PM, [address] [place] [address] [place], [address], Progress Notes * Jem QUINTEROSDOB:1945 ( 79 yo M)Acc No.[id number]:02/09/2025 Progress Notes Patient: Jem JI Provider: Annalise Felder MD :1945 A ge:79 Y S ex:Male Date:02/09/2025 Address: [place], [id number] Subjective: * Chief Complaints: * R [...] occurred while driving and he had to truss puller helper to the side and once took a [...] smoker 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 Pane l Fast * Collection Date 02/08/2025 [...] Felder MD Date: 0 02/09/2025 Generated for Frandy mittal/Apple/Rubenitting on: 1 08/24/2024 09:04 AM EST History and Physical Notes * [...] Referred Provider Not es 02/09/2025 Jose Felder [facility], Pulmonology eval and treat needs sleep study daytime somnolence
--- OUTSIDE RECORDS SUMMARY | 2025-02-16 04:45 | XMS_ITS ---
Author Organization Jose Felder III, MD Address [address] [place] [address] [address] [place] [address] Care Team Providers Care Pipe Line Gauger Name Role Phone Dr. Jose Felder III Primary Care Provider Allergies Allergen (clinical drug ingredient) Drug/Non Drug Allergy documented on EMR Reaction Allergy Type Onset Date Status No Known Drug Allergy Unknown Drug Allergy Active Seasonale Unknown Drug Allergy Active Results Component Value Reference Range Notes Lipid Panel Reviewed date:02/25/2025 01:03:25 PM Interpretation: Performing Lab:[facility], [address] [place] [phone] Notes/Report: Triglycerides 73 <150 mg/dL Desirable Triglyceride: [...] Amylase Reviewed date:02/25/2025 01:03:25 PM Interpretation: Performing Lab:[facility], [address] [place] [id number] Notes/Report: Amylase 57 28-100 U/L XR thoracic spine 3V Reviewed date:02/25/2025 01:03:25 PM Interpretation: Performing Lab: Notes/Report: [address] [address] XRay Report Signed Patient: Jem Quinteros MR#: [id number] 3 : 1945 Acct:[id number] Age/Sex: 79 / M ADM Date: 02/16/25 Loc: HO.LAB Attending Dr: Jose Felder MD Ordering Physician: Jose Felder MD Date of Service: 02/16/25 Procedure(s): XR thoracic spine 3V Accession Number(s): [id number] cc: Jose Felder MD EXAMINATION: XR THORACIC [...] 02/16/25 1056 DD/ 1045 TD/TT: 02/16/25 1051 Labor Service Representative: [address] [address] XRay Report Signed Patient: Jem Quinteros MR#: [id number] 3 : 1945 Acct:[id number] Age/Sex: 79 / M ADM Date: 02/16/25 Loc: HO.LAB Attending Dr: Joes Felder MD Ordering Physician: Jose Felder MD Date of Service: 02/16/25 Procedure(s): XR thoracic spine 3V Accession Number(s): [id number] cc: Jose Felder MD EXAMINATION: XR THORACIC [...] 02/16/25 1056 DD/ 1045 TD/TT: 02/16/25 1051 Labor Service Representative: REASON FOR VISIT Vertigo, Back pain, History [...] Status Risk Notes Problem Thoracic back pain ([id number]) Thoracic back pain (M54.6) Active confirmed The [...] Date Provider Diagnosis Jose Felder III, MD [address] [place] [address] [place] [address] 02/16/2025 Jose Felder Thoracic back pain M54.6 [...] eyes and nasal congestion. He is using dlem-uje-zsqwlep medication. I recommended fluticasone and loratadine. 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 Pane l Fast * Collection Date 02/08/2025 [...] eyes and nasal congestion. He is using wzet-uwg-zelggco medication. I recommended fluticasone and loratadine. 5 [...] * Provider: Annalise Felder MD Date: 0 02/16/2025 Generated for Frandy mittal/Apple/eTransmitting on: 1 08/24/2024 09:03 AM EST History [...]
--- OUTSIDE RECORDS SUMMARY | 2025-02-24 04:00 | XMS_ITS ---
Author Organization Jose Felder III, MD Address [address] [place] [address] [place] [address] Care Team Providers Care Finisher Operator Name Role Phone Dr. Jose Felder III [...] W/U Status Risk Notes Problem Neck pain (96583411) Cervical pain (neck) (M54.2) Active confirmed He has had neurosurgery in the past on his lower cervical spine leaving him with a metal plate and a . This was done by who is now at [facility]. Vital Signs Temperature 98.3 degrees Fahrenheit 02/25/20 25 Blood pressure systolic 119 mm Hg 02/25/20 25 Blood pressure diastolic 74 mm Hg 025 Heart Rate 86 /min 02/24/2025 Height 71 in 02/24/2025 Weight 194 lbs 02/24/2025 BMI 27.05 kg/m2 02/24/2025 Encounters Encounter Location Date Provider Diagnosis Jose Felder III, MD [address] [place] [address] [place] [address] 02/24/2025 Jose Felder Thoracic back pain M [...] was done by who is now at [facility]. 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 3 . C hronic lymphoid leukemia [...] 0 02/24/2025 Generated for Frandy mittal/Apple/eTransmitting on: 08/24/2024 09:04 AM EST History and Physical [...]
--- OUTSIDE RECORDS SUMMARY | 2025-03-02 05:06 | XMS_ITS ---
Author Organization Jose Felder III, MD Address [address] [place] [address] [address] [place] [address] Care Team Providers Care English Language Learner Teacher Name Role Phone Dr. Jose Felder III Primary Care Provider [phone] REASON FOR VISIT needs medical records Social History Sex Assigned At : Social History Observation Description Sex Assigned At Male Encounters Encounter Location Date Provider Diagnosis Jose Felder III, MD [address] [place] [address] [place] [address] 03/02/2025 Jose Felder Plan Of Treatment Next Appt Details Provider Name:Jose Felder , 10/05/2025 02:30:00 PM, [address] [place] [address] [place], [address], Progress Notes * Jem QUINTEROSDOB:1945 ( 79 yo M)Acc No.[id number]:03/02/2025 Patient: Jem JI :1945 A ge:79 Y S ex:Male Address:[place] [address] * true * Date: Generated for Printi ng/Faxing/eTransmitting on: 08/24/2024 09:03 AM EST
--- OUTSIDE RECORDS SUMMARY | 2025-03-10 04:30 | XMS_ITS ---
Author Organization Jose Felder III, MD Address [address] [place] [address] [place] [address] Care Team Providers Care Parent Trainer Name Role Phone Dr. Jose Felder III [...] Problem Status W/U Status Risk Notes Problem 498022295 Sensorineural hearing loss (SNHL) of both ears (H90.3) Active confirmed compeensated with hearing aids. Problem 932123586 Diabetes mellitus type 2 in nonobese (E11.9) Active confirmed He was continued on current therapy. He will be back in the office in the near future to reevaluate this problem. Problem 61581361 Cervical radiculopathy (M54.12) Active confirmed Follows vigorous [...] Date Provider Diagnosis Jose Felder III, MD [address] [place] [address] [place] [address] 03/10/2025 Jose Felder Former smoker Z87.89 1 [...] eyes and nasal congestion. He is using uina-ztq-iuisgnk medication. I recommended fluticasone and loratadine. 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 He is using mibe-kil-ssodmqq medication. I recommended fluticasone and loratadine. Plan: [...] MD Date: 0 03/10/2025 Generated for Frandy mittal/Apple/eTtobinsmitting on: 08/24/2024 09:04 AM EST History and [...]
--- OUTSIDE RECORDS SUMMARY | 2025-03-15 04:00 | XMS_ITS ---
Author Organization Jose Felder III, MD Address [address] [place] [address] [place] [address] Care Team Providers Care Lehr Attendant Name Role Phone Dr. Jose Felder III Primary Care Provider Allergies Allergen (clinical drug ingredient) Drug/Non Drug Allergy documented on EMR Reaction Allergy Type Onset Date Status No Known Drug Allergy Unknown Drug Allergy Active Seasonale Unknown Drug Allergy Active REASON FOR VISIT Thoracic spine pain, Low back pain, Hypertension, Headaches, Protein S deficiency Medications Medication SIG (Take, Route, Frequency, Duration) Notes Start Date End Date Status Cyclobenzaprine HCl 5 MG 1 tablet Orally every 8 hours if needed 03/10/2025 Active Meclizine HCl 25 MG 1 or 2 tablets every 8 hours for vertigo Orally every 8 hours 02/09/2025 Active Venlafaxine HCl 50 MG 1 tablet with food Orally Once a day 04/16/2023 Active Simvastatin 40 MG 1 Tablet Orally Once a day Active SUMAtriptan Succinate 100 MG TAKE 1 TABL ET BY MOUTH EVERY DAY AT THE ONSET OF MIGRAINE; MAY REPEATevery 22 HOURS IF when SYPTOMS PERSISTS; MAX OF 2 TS/ DAY Orally Once a day Active traZODone HCl 50 MG TAKE 1 [...] Tobacco non-user Ex-cigaret te smoker Vital Signs Height 71 in 03/15/2025 Weight 198 lbs 03/15/2025 BMI 27.61 kg/m2 03/15/2025 Encounters Encounter Location Date Provider Diagnosis Jose Felder III, MD [address] [place] [address] [place] [address] 03/15/2025 Jose Felder Hypertension I10 ; P ain in thoracic spine M54.6 ; Overweight (BMI 25.0-29.9) E66.3 ; 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 ; Former smoker Z87.891 ; Lung cancer C34.90 and Environmental allergies Z91.09 Assessments Encounter Date Diagnosis (ICD Code) Assessment Notes Treat ment Notes Treatment Clinical Notes 03/15/2025 Hypertension (ICD-10 - I10) His blood pressure has been controlled and no change in his regimen was made today. 03/15/2025 Pain in thoracic spine (ICD-10 - M54.6) The discomfort has almost resolved. He will wait 1 week before resuming his golf. He will telephone or come to the office at the pain relapses. 03/15/2025 Overweight (BMI 25.0-29.9) (ICD-10 - E66.3) His body mass index is 27. We discussed diet and nutrition. We reviewed his weight loss strategy. 03/15/2025 Diabetes mellitus type 2 in nonobese (ICD-10 - E11.9) He was continued on current therapy. He will be back in the office in the near future to reevaluate this problem. 03/15/2025 Former smoker (ICD-10 - Z87.891) He is highly motivated not to smoke and has a plan to prevent relapse in times of stress or illness. 03/15/2025 Lung cancer (ICD-10 - C34.90) He remains in remission with no relapse. He is no longer smoking. 03/15/2025 Environmental allergies (ICD-10 - Z91.09) He has noted itching around his eyes and nasal congestion. He is using wpqn-ugo-hixniih medication. I recommended fluticasone and loratadine. Plan Of Treatment Medication Medication Name Sig Start Date Stop Date Notes Cyclobenzaprine HCl 5 MG 1 tablet Orally every 8 hours if needed 03/10/2025 Meclizine HCl 25 MG 1 or 2 [...] 2 TS/ DAY Orally Once a day traZODone HCl 50 MG TAKE 1 TABLET BY MOUTH DAILY Losartan Potassium 25 MG as directed Orally Once a day Warfarin Sodium 5 MG 1 1/2 tablet Orally Once a day Pending Test Test Name Order Date PROFILE, FASTING (COMPREHENSIVE METABOLI C) 03/15/2025 CBC w DIFF 03/15/2025 Lipid Panel 03/15/2025 Next Appt Details Follow Up: 2 Months, Reason: OV Provider Name:Jose Felder , 10/05/2025 02:30:00 PM, [address] [place] [address], [address], Progress Notes * ALDAIR JemDOB:1945 ( 80 yo M)Acc No.[id number]:03/15/2025 Patient: Jem JI Provider: Annalise Felder MD :1945 A ge:80 Y S ex:Male Date:03/15/2025 Address: [address] [facility] Subjective: * Chief Complaints: * T horacic spine painLow back painHypertensionHeadachesProtein S deficiency * HPI: * : T his telehealth visit took place over 15 minutes with the patient at home and me in my office. He gave consent for billing. He has been taking the ibuprofen and using heat and cyclobenzaprine for his midthoracic pain that was exacerbated while playing golf recently. The x-rays show no significant abnormality. He reports the pain has now 95% resolved. He was instructed to wait a week before he resumes playing golf or other exertions. He was instructed to stop the cyclobenzaprine. He will call me if this recurs. Otherwise he will return to normal office visit schedules. Telehealth L ocation of provider rendering services: { ...} [address] [facility] [facility] [address] L ocation of patient: zain martínez listed in demographics for today's visit P atient identification confirmed using: CHIRAG Mock ame T elehealth method: T elephone only. Patient not visible to care provider. C onsent: P atient verbally consented to treatment, Patient verbally consented to billing insurance company, Patient informed of any privacy concerns related to method of visit T otal time spent with patient (mins) 1 5 * ROS: G eneral/Constitutional: pain T horacic and lumbar spine. C hills d enies.?Fatigue a dmits. F [...] Muscle aches d enies. P ainful joints T horacic and lumbar spine. S ciatica d enies. W eakness d enies. S kin: Itching d enies. R nik d enies. S kin lesion(s)?denies. N eurologic: Difficulty speaking d enies. D izziness d enies.?Headache M uch improved recently. L ow back pain t hat is chronic. P sychiatric: Depressed mood d enies. * Medical History: * Surgical History: F NA superior mediastinal mass cataract right eye 06/2018Cyst removed from his back 08/2022No history * Hospitalization/Major Diagno stic Procedure: N o history * Family History: F ather: 89 yrs, diagnosed with Hyperlipidemia, DM. C destinee: alive. S on(s): alive. S iblings: . 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 Assessment: * Assessment: 1. P ain in thoracic spine - M54.6 (Primary) N otes :The discomfort has almost resolved. He will wait 1 week before resuming his golf. He will telephone or come to the office at the pain relapses. 2 . H ypertension - I10 N otes :His blood pressure has been controlled and no change in his regimen was made today. 3 . O verweight (BMI 25.0-29.9) - E66.3 N otes :His body mass index is 27. We discussed diet and nutrition. We reviewed his weight loss strategy. 4 . D iabetes mellitus type 2 in nonobese - E11.9 N otes :He was continued on current therapy. He will be back in the office in the near future to reevaluate this problem. 5 . F ormer smoker - Z87.891 N otes :He is highly motivated not to smoke and has a plan to prevent relapse in times of stress or illness. 6 . L sandra cancer - C34.90 N otes :He remains in remission with no relapse. He is no longer smoking. 7 . E nvironmental allergies - Z91.09 N otes :He has noted itching around his eyes and nasal congestion. He is using zxqx-hry-ufdpgjy medication. I recommended fluticasone and loratadine. Plan: * Treatment: 2. O verweight (BMI 25.0-29.9) L AB: PROFILE, FASTING (COMPREHENSIVE METABOLIC) L AB: CBC w DIFF L AB: Lipid Panel 3. D iabetes mellitus type 2 in nonobese L AB: PROFILE, FASTING (COMPREHENSIVE METABOLIC) L AB: CBC w DIFF L AB: Lipid Panel 4. O thers Continue traZODone HCl Tablet, 50 [...] 8 hours for vertigo, Orally, every 8 hours; C ontinue Cyclobenzaprine HCl Tablet, 5 MG, 1 tablet, Orally, every 8 hours if needed. * Procedure Codes: 9 8012 SYNCH AUDIO-ONLY EST SF 10 * Preventive Medicine: Counseling: C are goal follow-up plan: Counseling for abnormal BMI given Y es Above Normal BMI Follow-up D ietary management education, guidance, and counseling S moking/Tobacco Use Patient counseled on the dangers of tobacco use and urged to quit. 0 03/15/2025 DM Care Plan: P atient Lifestyle Goals P atient wants to be able to manage diabetes without too much effort. T reatment Goals H bA1C < 7.0, Blood Sugars less than < 115. B arriers n o barriers. * Follow Up: 2 Months (Reason: OV) * Images: * Sign off status: Completed true * Provider: Annalise Felder MD Date: 0 03/15/2025 Generated for Frandy mittal/Apple/eTtobinsmtano on: 08/24/2024 09:04 AM EST History and Physical Notes * HPI (History of Present Illness) Category Sub-Category Detail Notes Telehealth Location of [facility] ider rendering services:: {...} [address] [facility] [address] Location of patient:: address listed in demographics [...]
--- OUTSIDE RECORDS SUMMARY | 2025-05-18 05:30 | XMS_ITS ---
Author Organization Jose Felder III, MD Address [address] [place] [address] [place] [address] Care Team Providers Care Speech Pathologist Assistant Name Role Phone Dr. Jose Felder III Primary Care Provider Allergies Allergen (clinical drug ingredient) Drug/Non Drug Allergy documented on EMR Reaction Allergy Type Onset Date Status No Known Drug Allergy Unknown Drug Allergy Active Seasonale Unknown Drug Allergy Active REASON FOR VISIT Improving low back pain, Acute neck pain, History of lung cancer, Hypertension, Headaches, Protein S deficiency, Chronic anticoagulation, Hearing loss, Diabetes Medications Medication SIG (Take, Route, Frequency, Duration) [...] TABLET BY MO UTH ONCE DAILY Active Simvastatin 40 MG TAKE 1 TABLET BY BRIANNE TH DAILY Active Losartan Potassium 25 MG TAKE 1 TABLET B Y MOUTH EVERY DAY Active Social History Tobacco Use: Social History [...] non-user Ex-cigaret te smoker Vital Signs Temperature 98.1 degrees Fahrenheit 05/18/20 25 Blood pressure systolic 131 mm Hg 05/18/20 25 Blood pressure diastolic 74 mm Hg 025 Heart Rate 85 /min 05/18/2025 Height 71 in 05/18/2025 Weight 194 lbs 05/18/2025 BMI 27.05 kg/m2 05/18/2025 Encounters Encounter Location Date Provider Diagnosis Jose Felder III, MD [address] [place] [address] [place] [address] 05/18/2025 Jose Felder Lung cancer C34.90 ; Former smoker Z87.891 ; Overweight (BMI 25.0-29.9) E66.3 ; 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 ; Environmental allergies Z91.09 ; 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 He is no longer smoking. 05/18/2025 Former smoker (ICD-1 0 - Z87.891) He is highly motivated not to smoke and has a plan to prevent relapse in times of stress or illness. 05/18/2025 Overweight (BMI 25.0-29.9) (ICD-10 - E66.3) His body mass index is 27. We discussed diet and nutrition. We reviewed his weight loss strategy. 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 05/18/2025 Environmental allergies (ICD-10 - Z91.09) He has noted itching around his eyes and nasal congestion. He is using dmbf-dlk-lixlbko medication. I recommended fluticasone and loratadine. 05/18/2025 Protein S deficiency (ICD-10 - D68.59) He is doing well with his chronic anticoagulation. The protein S deficiency is no indication for lifelong therapy. 05/18/2025 Other depression (ICD-10 - F32.89) His medication was increased to 100 mg daily. A follow-up visit was arranged. He has no suicidal ideation and is beginning to experience improvement. 05/18/2025 Benign prostatic hyperplasia, unspecified whether lower urinary tract symptoms present (ICD-10 - N40.0) He reports rising from sleep about twice a night to urinate. We have discussed some lifestyle modifications he could make to reduce this nocturia. 05/18/2025 Chronic nonintractable headache, unspecified headache type (ICD-10 - R51) His headaches are improved. They're less frequent. He will continue on current therapy. 05/18/2025 DVT (deep venous thrombosis) (ICD-10 - I82.409) He has had no blood clots. 05/18/2025 Hypertension (ICD-10 - I10) His blood pressure has been controlled and no change in his regimen was made today. 05/18/2025 Sensorineural hearin g loss (SNHL) of both ears (ICD-10 - H90.3) compeensated with hearing aids. 05/18/2025 Diabetes mellitus type 2 in nonobese (ICD-10 - E11.9) He was continued on current therapy. He will be back in the office in the near future to reevaluate this problem. 05/18/2025 Cervical radiculopathy (ICD-10 - M54.12) Follows vigorous exercise, driving golf balls, and radiates into the side of the neck and the upper back. He is currently using heat and rest Tylenol ibuprofen and massage. If it does not clear quickly he will be given dexamethasone. If necessary MRI imaging of the neck to assess for a herniated disc will be done. Plan Of Treatment Medication Medication Name Sig [...] MG TAKE 1 TABLET BY MOUTH DAILY Cyclobenzaprine HCl 5 MG 1 tablet Orally every 8 hours if needed 03/10/2025 Warfarin Sodium 5 MG TAKE 1 TABLET BY MO UTH ONCE DAILY Simvastatin 40 MG TAKE 1 TABLET BY MOUTH DAILY Losartan Potassium 25 MG TAKE 1 TABLET B Y MOUTH EVERY DAY Pending Test Test Name Order Date PROFILE, FASTING (COMPREHENSIVE METABOLI C) 05/18/2025 PSA, TOTAL 05/18/2025 CBC w DIFF 05/18/2025 Lipid Panel 05/18/2025 Vitamin D 25-OH Total 05/18/2025 Next Appt Details Follow Up: As Scheduled, Tamiko son: Annual Exam Provider Name:Jose Felder , 10/05/2025 02:30:00 PM, [address] [place] [address] , [address], [place], [address], Progress Notes * Jem QUINTEROSDOB:1945 ( 80 yo M)Acc No.[id number]:05/18/2025 Progress Notes Patient: Jem JI Provider: Annalise Felder MD :1945 A ge:80 Y S ex:Male Date:05/18/2025 Address: [address] [id number] Subjective: * Chief Complaints: * I mproving low back painAcute neck painHistory of lung cancerHypertensionHeadachesProtein S deficiencyChronic anticoagulationHearing lossDiabetes * HPI: C OVID-19 Screening: Him he is doing management of his back pain. He has been doing stretches and exercises on the back pain has improved substantially. He has mild neck pain today. He reports the back pain was his worst episode ever. It is still sore but not a bother. His weight has dropped. He has nocturia once or twice a night. He otherwise has no new complaints today. Questions H ave you had any new onset fever, chills, cough, congestion, sore throat, shortness of breath, muscle aches? N o * ROS: G eneral/Constitutional: pain N greta and low back with range of motion. C hills?denies. F atigue a dmits. F ever d [...] Muscle aches d enies. P ainful joints N greta and lumbar spine. S ciatica d enies. 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 [...] 2 TS/ DAY Orally Once a day Meclizine HCl 25 MG Tablet 1 or 2 tablets every 8 hours for vertigo Orally every 8 hours Cyclobenzaprine HCl 5 MG Tablet 1 tablet Orally every 8 hours if needed Warfarin Sodium 5 MG Tablet TAKE 1 TABLET BY MOUTH ONCE DAILY Simvastatin 40 MG Tablet TAKE 1 TABLET BY MOUTH DAILY Losartan Potassium 25 MG Tablet TAKE 1 TABLET BY MOUTH EVERY DAY Medication List reviewed and reconciled with the [...] TS/ DAY Orally Once a day Taking Meclizine HCl 25 MG Tablet 1 or 2 tablets every 8 hours for vertigo Orally every 8 hours Taking Cyclobenzaprine HCl 5 MG Tablet 1 tablet Orally every 8 hours if needed Taking Warfarin Sodium 5 MG Tablet TAKE 1 TABLET BY MOUTH ONCE DAILY Taking Simvastatin 40 MG Tablet TAKE 1 TABLET BY MOUTH DAILY Taking Losartan Potassium 25 MG Tablet TAKE 1 TABLET BY MOUTH EVERY DAY Medication List reviewed and reconciled with the patient * Allergies: S Ehsan Known Drug Allergyno[Allergies Verified] Objective: * Vitals: H t: 71, Wt:194, BMI:27.05, BP:131/74, HR:85, Temp:98.1, Ht-cm: 180.34, Wt-k. * P ast Orders: Lab:Lipid Panel * Collection Date 02/16/2025 02/08/2025 10/04/2024 Collection Time 10:39 AM 06:19 AM 06:09 AM Order Date 02/16/2025 02/08/2025 10/04/2024 Triglycerides 73 (Ref Range: <150 mg/dL) 122 (Ref Range: <150 mg/dL) 81 (Ref Range: <150 mg/dL) Cholesterol 166 (Ref Range: <200 mg/dL) 150 (Ref Range: <200 mg/dL) 164 (Ref Range: <200 mg/dL) LDL Cholesterol Calculated 109 H (Ref Range: <100 mg/dL) 89 (Ref Range: <100 mg/dL) 104 H (Ref Range: <100 mg/dL) HDL Cholesterol 43 (Ref Range: >40 mg/dL) 37 L (Ref Range: >40 mg/dL) 44 (Ref Range: >40 mg/dL) ???Lab:Amylase (Order Date - 02/16/2025) (Collection Date & Time - 02/16/2025 10:39 AM)?ValueReference Range?[id number] - U/L * Lab:INR WHOLE BLOOD POC * Collection Date 05/06/2025 04/15/2025 03/25/2025 03/11/2025 02/25/2025 Collection Time 09:08 AM 08:55 AM 09:00 AM 08:36 AM 08:2 8 AM Order Date 05/06/2025 04/15/2025 03/25/2025 03/11/202502/25 INR WHOLE BLOOD POC 3.3 H (Ref Range: 0.9-1.1) 2.8 H (Ref Range: 0.9-1.1) 2.1 H (Ref Range: 0.9-1.1) 1.8 H (Ref Range: 0.9-1.1) 2.9 H (Ref Range: 0.9-1.1) * Lab:Prothrombin Time Whole B ld POC * Collection Date 05/06/2025 04/15/2025 03/25/2025 03/11/2025 02/25/2025 Collection Time 09:08 AM 08:55 AM 09:00 AM 08:36 AM 08:2 8 AM Order Date 05/06/2025 04/15/2025 03/25/2025 03/11/202502/25 Prothrombin Time Whole Bld POC 39.1 H (Ref Range: 11.1-13.5 sec) 33.5 H (Ref Range: 11.1-13.5 sec) 24.9 H (Ref Range: 11.1-13.5 sec) 21.6 H (Ref Range: 11.1-13.5 sec) 35.4 H (Ref Range: 11.1-13.5 sec) ???Imaging:XR DEXA axial skeleton (Order Date - 05/12/2025) (Performed Date - 05/12/2025) * Imaging:XR thoracic spine 3V * Performed Date 02/16/2025 03/27/2022 10:45 AM 12:38 PM Order Date 02/16/2025 03/26/2022 ???Imaging:CT cervical spine wo con (Order Date - 03/07/2025) (Performed Date - 03/07/2025) ???Imaging:CT thoracic spine wo con (Order Date - 03/07/2025) (Performed Date - 03/07/2025) * Examination: G eneral Examination: GENERAL APPEARANCE: p leasant, well nourished, well developed, in no acute distress, calm and relaxed: overweight: man. HEAD: a traumatic, normocephalic. EYES: e [...] vascular bruits. LUNGS: : diminished breath sounds throughout: no wheezes, rales, rhonchi. BREASTS: no masses [...] a lert, oriented. Assessment: * Assessment: 1. L sandra cancer - C34.90 (Primary) N otes :He remains in remission with no relapse. He is no longer smoking. 2 . F ormer smoker - Z87.891 N otes :He is highly motivated not to smoke and has a plan to prevent relapse in times of stress or illness. 3 . O verweight (BMI 25.0-29.9) - E66.3 N otes :His body mass index is 27. We discussed diet and nutrition. We reviewed his weight loss strategy. 4 . C hronic lymphoid leukemia - C91.10 N otes :This diagnosis remains in remission since he finished his chemotherapy. 5 . E nvironmental allergies - Z91.09 N otes :He has noted itching around his eyes and nasal congestion. He is using xdia-wya-zbnfuvt medication. I recommended fluticasone and loratadine. 6 . P rotein S deficiency - [...] he could make to reduce this nocturia. 9 . C hronic nonintractable headache, unspecified headache type - R51 ? N otes :His headaches are improved. They're less frequent. He will continue on current therapy. 1 0. D VT (deep venous thrombosis) - I82.409 N otes :He has had no blood clots. 1 1. H ypertension - I10 N otes :His blood pressure has been controlled and no change in his regimen was made today. 1 2. S ensorineural hearing loss (SNHL) of both ears - H90.3 N otes :Mrs. grandesated with hearing aids. 1 3. D iabetes mellitus type 2 in nonobese - E11.9 N otes :He was continued on current therapy. He will be back in the office in the near future to reevaluate this problem. 1 4. C ervical radiculopathy - M54.12 N otes :Follows vigorous exercise, driving golf balls, and radiates into the side of the neck and the upper back. He is currently using heat and rest Tylenol ibuprofen and massage. If it does not clear quickly he will be given dexamethasone. If necessary MRI imaging of the neck to assess for a herniated disc will be done. Plan: * Treatment: 2. C hronic lymphoid leukemia L AB: PROFILE, FASTING (COMPREHENSIVE METABOLIC) L AB: PSA, TOTAL L AB: CBC w DIFF L AB: Lipid Panel L AB: Vitamin D 25-OH Total 3. B enign prostatic hyperplasia, unspecified whether lower urinary tract symptoms present L AB: PROFILE, FASTING (COMPREHENSIVE METABOLIC) L AB: PSA, TOTAL L AB: CBC w DIFF L AB: Lipid Panel L AB: Vitamin D 25-OH Total 4. H ypertension L AB: PROFILE, FASTING (COMPREHENSIVE METABOLIC) L AB: PSA, TOTAL L AB: CBC w DIFF L AB: Lipid Panel L AB: Vitamin D 25-OH Total 5. D iabetes mellitus type 2 in nonobese L AB: PROFILE, FASTING (COMPREHENSIVE METABOLIC) L AB: PSA, TOTAL L AB: CBC w DIFF L AB: Lipid Panel L AB: Vitamin D 25-OH Total 6. O thers Continue Simvastatin Tablet, 40 MG, TAKE 1 TABLET BY MOUTH DAILY; C ontinue Losartan Potassium Tablet, 25 MG, TAKE 1 TABLET BY MOUTH EVERY DAY; C ontinue Warfarin Sodium Tablet, 5 MG, TAKE 1 TABLET BY MOUTH ONCE DAILY; C ontinue traZODone HCl Tablet, 50 MG, TAKE 1 TABLET BY MOUTH DAILY;?Continue Venlafaxine HCl Tablet, 50 MG, 1 tablet with food, Orally, Once a day; C ontinue SUMAtriptan Succinate Tablet, 100 MG, TAKE 1 TABLET BY MOUTH EVERY DAY AT THE ONSET OF MIGRAINE; MAY REPEATevery 22 HOURS IF when SYPTOMS PERSISTS; MAX OF 2 TS/ DAY, Orally, Once a day; C ontinue Meclizine HCl Tablet, 25 MG, 1 or 2 tablets every 8 hours for vertigo, Orally, every 8 hours; C ontinue Cyclobenzaprine HCl Tablet, 5 MG, 1 tablet, Orally, every 8 hours if needed. * Procedure Codes: * Preventive Medicine: Counseling: C are goal follow-up plan: Counseling for abnormal BMI given Y es Above Normal BMI Follow-up D ietary management education, guidance, and counseling S moking/Tobacco Use Patient counseled on the dangers of tobacco use and urged to quit. 1 * Follow Up: A s Scheduled (Reason: Annual Exam) * Images: * Sign off status: Completed true * Provider: Annalise Felder MD Date: Generated for Kaciei daxa/Apple/eTransmitting on: 08/24/2024 09:03 AM EST History and Physical Notes * HPI (History of Present Illness) Category Sub-Category Detail Notes COVID-19 Screening Questions Have you had any new onset fever, chills, cough, congestion, sore throat, shortness of breath, muscle aches?: No Examination Category Sub-Category Detail Notes General Examination GENERAL APPEARANCE: pleasant , well nourished, well developed, in no acute distress, calm and relaxed: overweight: man HEAD: atraumatic, normocep halic EYES: eomi, perrla, anicte mike, conjugate EARS: normal NOSE: septum intact NECK/THYROID: no jugular venous di stention, no carotid bruit, thyroid normal, Old surgical scar base of right neck HEART: no clicks, gallops, murmurs, or rubs, regular rhythm, S1, S2 normal, no s3, or vascular bruits LUNGS: : diminished breath sounds throughout: no wheezes, rales, rhonchi ABDOMEN: bowel sounds [...]
--- NOTE | 2025-06-24 08:59 | MHC.OFFVISCO ---
Intake Intake Visit Reasons: Anticoagulation Allergies Seasonal Allergies Allergy (Intermediate, Verified 06/24/25 08:55) Cough venlafaxine Adverse Reaction (Intermediate, Verified 06/24/25 08:55) Headache Medication List - Last Reconciled 06/24/25 by Magda Matute RN cyclobenzaprine 5 mg PO TID PRN losartan 25 mg PO DAILY meclizine 25 - 50 mg PO Q8H simvastatin 40 mg PO DAILY sumatriptan succinate 100 mg PO PRN trazodone 50 mg PO DAILY vitamin B complex PO [VITAMIN D 3 PO] warfarin 5 mg See Protocol PO DAILY Nursing Note INR: 2.8- in therapeutic range of 2-3 Medications and supplements reviewed- no changes No changes in health, diet, medications, or supplements, Denies any signs and symptoms of bleeding or bruising or clotting. Bleeding, bruising, clotting discussed Nutritional guidance given Dose: 5mg x 3, 7.5mg x 4 F/U INR: 4 weeks Patient verbalizes understanding of instructions given Anti-Coag Initial Assessment Social Hx Patient Tobacco Use Status: Former Tobacco user Tobacco use type: Cigar alcohol intake: never Coding Level of Care Code Est Patient Level 1 Diagnoses Current use of anticoagulant therapy Z79.01 Assessment & Plan Assessment & Plan (1) Current use of anticoagulant therapy: Code(s): Z79.01 - custodial (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
[2025-06-24 09:01] LABS: Prothrombin Time Whole Bld POC 34.1 sec (11.1-13.5); ~PT, ~INR - Anti Coag Clinic 2.8 (0.9-1.1)
--- OUTSIDE RECORDS SUMMARY | 2025-06-24 09:03 | XMS_ITS | Encounter Summary ---
Author Organization [facility] Address [address] [place] [address] Care Team Providers Care Endless Track Vehicle Mechanic Name Role Phone Wilner Paulson MD Primary Care Provider Unavailable Jose Felder MD Primary Care Provider Vladimir kapoor Encounter Details Date Type Department Care Team Description 12/18/[address] [facility] Medical Records [address] [place] [id number] Abstract, Provider Social History Tobacco Use Types [...] on filedocumented in this encounter Care Teams Endless Track Vehicle Mechanic Relationship Specialty Start Date End Date Wilner Paulson MD PCP - General Internal Medicine 11/13/1601/02 Jose Felder MD PCP - General Oncology/Hematology 01/19/18 documented as of this encounter
--- OUTSIDE RECORDS SUMMARY | 2025-06-24 09:03 | XMS_ITS | Encounter Summary ---
Author Organization [facility] Address [address] [place] [address] Care Team Providers Care Parts Expediter Name Role Phone Wilner Paulson MD Primary Care Provider Unavailable Jose Felder MD Primary Care Provider Vladimir kapoor Encounter Details Date Type Department Care Team Description 02/27/2017 [facility] Medical Records [address] [place] [id number] Abstract, Provider Social History Tobacco Use Types [...] on filedocumented in this encounter Care Teams Parts Expediter Relationship Specialty Start Date End Date Wilner Paulson MD PCP - General Internal Medicine 11/13/1601/02 Jose Felder MD PCP - General Oncology/Hematology 01/19/18 documented as of this encounter
--- OUTSIDE RECORDS SUMMARY | 2025-06-24 09:03 | XMS_ITS | Clinical Summary ---
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 herapy [...] pulmonary embolism 11/29/2016 Chronic lymphocytic leukemia in [facility] 11/29/2016 Overview: Follows with Dr Chaparro Low back pain 11/29/2016 GERD (gastroesophageal reflux disease) 0 11/29/2016 Allergic rhinitis 11/29/2016 ADD (attention deficit disorder) 017 Sciatica 11/29/2016 Migraine 11/29/2016 History of lung cancer 11/29/2016 Overview: Malignant neoplasm; bronchus and lung, unspecified s/p resection 02/2010 following chemoradiation.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 History of SVC syndrome Immunizations [...] 94 09/02/2017 10:50 AM EST Temperature 36.3 C (97.4 F) 06/24/2017 10:57 AM EST Respiratory Rate 12 09/02/2017 10:50 AM EST [...] CHOLESTEROL (LDL) 07/01/2018 07/01/2017, 11/11/2016 (External Completion) BMI CHECK/ADVISE 08/04/2024 09/02/2017, 06/23/2017 INFLUENZA (#1) 2025 05/08/2017, 05/31/2016 DTAP/TDAP/TD (2 - Td or Tdap) 01/30/2027 01/30/2017 PNEUMOCOCCAL VACCINE Completed 02/27/2017, 11/22/19 15 Advance Directives For more information, please contact: [phone] Latest Code Status on File Code Status Date Activated Date Inactivated Comments Full Code 12/05/2016 12:37 PM MOLST Comp leted on 10/11/15-patient wants intubation, ventilation, dialysis artificial nutrition and hydration Care Teams Asset Protection Assistant Relationship Specialty Start Date End Date Jose Felder MD PCP - General Oncology/Hematology 01/19/18
--- OUTSIDE RECORDS SUMMARY | 2025-06-24 09:04 | XMS_ITS | Encounter Summary ---
Author Organization [facility] Address [address] [place] [address] Care Team Providers Care Public Health Analyst Name Role Phone Wilner Paulson MD Primary Care Provider Jose Hines MD Primary Care Provider Vladimir kapoor Reason for Visit * Reason Onset Date Comments [facility] Procedure Gi 06/24/2017 Encounter Details Date Type Department Care Team Description 06/24/2017 Telephone Gastroenterology - [address] [address] Guicho Bravo MD [facility] [...] 9:38 AM EST Received a call from [facility] stating this patient will need to be rescheduled because they are unableto fill procedures for this day. Patient informed he is rescheduled for 08/15 at 6:30 arrival 7:30 procedure * Telephone Encounter - Kimberly Rain - 06/24/2017 3:56 PM EST * Telephone Encounter - Kimberly Rain - 06/24/2017 11:50 AM EST Pt. Has been referred to by for Colon at [facility] on 08/05/2017. P6:30 am arrival time, 7:30 procedure time. Demo insurance and booking faxed to [facility] recieved documented in this encounter Plan of Treatment Not on file documented as of this encounter Visit Diagnoses Not on filedocumented in this encounter Care Teams Public Health Analyst Relationship Specialty Start Date End Date Wilner Paulson MD PCP - General Internal Medicine 11/13/1601/02 Jose Felder MD PCP - General Oncology/Hematology 01/19/18 documented as of this encounter
--- OUTSIDE RECORDS SUMMARY | 2025-06-24 09:05 | XMS_ITS | Patient Health Record ---
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 Plan Of Treatment Pending Test Test Name Order Date X ray : Foot, left 3V 06/28/2013 [id number] TENDON SHEATH/LIGAMENT 0 09/08/2013,[id number] TENDON SHEATH/LIGAMENT 0 01/11/2014,[id number] TENDON SHEATH/LIGAMENT 0 10/12/2019 Insurance Providers Payer Name Payer Address Payer Phone Subscriber Number Group Number Insured Name Patient Relationship to Insured Coverage Start Date Coverage End Date Medicare National Govt [employer] [facility] [address] [place] [address] [id number] Jem Gallardo Self - patient is the insured [employer] [address] [place] [address] [id number] Jem Gallardo Self - patient is the [...]
--- OUTSIDE RECORDS SUMMARY | 2025-06-24 09:05 | XMS_ITS | Patient Health Record ---
Author Organization Jose Felder III, MD Address [address] [place] [address] Care Team Providers Care Supervisor Mail Carriers Name Role Phone Dr. Jose Felder III [...] Panel Reviewed date:02/25/2025 01:03:25 PM Interpretation: Performing Lab:[facility], [address] [place] [phone] Notes/Report: Triglycerides 73 <150 mg/dL Desirable Triglyceride: [...] Amylase Reviewed date:02/25/2025 01:03:25 PM Interpretation: Performing Lab:[facility], [address] [place] [phone] Notes/Report: Amylase 57 28-100 U/L XR thoracic spine 3V Reviewed date:02/25/2025 01:03:25 PM Interpretation: Performing Lab: Notes/Report: [address] [address] XRay Report Signed Patient: Jem Gallardo MR#: [id number] 3 : 1945 Acct:[id number] Age/Sex: 79 / M ADM Date: 02/16/25 Loc: HO.LAB Attending Dr: Jose Felder MD Ordering Physician: Jose Felder MD Date of Service: 02/16/25 Procedure(s): XR thoracic spine 3V Accession Number(s): [id number] cc: Jose Felder MD EXAMINATION: XR THORACIC [...] 02/16/25 1056 DD/ 1045 TD/TT: 02/16/25 1051 Sugar Controller: [address] [address] XRay Report Signed Patient: Jem Gallardo MR#: [id number] 3 : 1945 Acct:[id number] Age/Sex: 79 / M ADM Date: 02/16/25 Loc: HO.LAB Attending Dr: Jose Felder MD Ordering Physician: Jose Felder MD Date of Service: 02/16/25 Procedure(s): XR thoracic spine 3V Accession Number(s): [id number] cc: Jose Felder MD EXAMINATION: XR THORACIC [...] 02/16/25 1056 DD/ 1045 TD/TT: 02/16/25 1051 Sugar Controller: ALEXANDRA WHOLE BLOOD POC Reviewed date:07/16/2024 08:35:52 AM Interpretation: Performing Lab:[facility], [address] [place] [phone] Notes/Report: PT, INR - [facility] 1.6 0.9-1.1 METER #: [id number] INTERNATIONAL NORMALIZED RATIO (INR) REFERENCE RANGES Reference [...] OC Reviewed date:07/16/2024 08:35:52 AM Interpretation: Performing Lab:[facility], [address] [place] [phone] Notes/Report: Prothrombin Time Whole Bld POC 19.4 11.1-13.5 sec INR WHOLE BLOOD POC Reviewed date:07/23/2024 09:07:49 PM Interpretation: Performing Lab:[facility], [address] [place] [phone] Notes/Report: PT, INR - [facility] 1.8 0.9-1.1 METER #: [id number] INTERNATIONAL NORMALIZED RATIO (INR) REFERENCE RANGES Reference [...] OC Reviewed date:07/23/2024 09:07:49 PM Interpretation: Performing Lab:[facility], [address] [place] [phone] Notes/Report: Prothrombin Time Whole Bld POC 21.4 11.1-13.5 sec INR WHOLE BLOOD POC Reviewed date:08/06/2024 08:49:39 PM Interpretation: Performing Lab:[facility], [address] [place] [phone] Notes/Report: PT, INR - [facility] 2.1 0.9-1.1 METER #: [id number] INTERNATIONAL NORMALIZED RATIO (INR) REFERENCE RANGES Reference [...] OC Reviewed date:08/06/2024 08:49:39 PM Interpretation: Performing Lab:[facility], [address] [place] [phone] Notes/Report: Prothrombin Time Whole Bld POC 25.3 11.1-13.5 sec INR WHOLE BLOOD POC Reviewed date:09/02/2024 06:23:24 AM Interpretation: Performing Lab:[facility], [address] [place] [phone] Notes/Report: PT, INR - [facility] 1.6 0.9-1.1 METER #: [id number] INTERNATIONAL NORMALIZED RATIO (INR) REFERENCE RANGES Reference [...] OC Reviewed date:09/02/2024 06:23:24 AM Interpretation: Performing Lab:[facility], [address] [place] [phone] Notes/Report: Prothrombin Time Whole Bld POC 18.8 11.1-13.5 sec INR WHOLE BLOOD POC Reviewed date:09/05/2024 08:45:11 AM Interpretation: Performing Lab:[facility], [address] [place] [phone] Notes/Report: PT, INR - [facility] 2.0 0.9-1.1 METER #: [id number] INTERNATIONAL NORMALIZED RATIO (INR) REFERENCE RANGES Reference [...] OC Reviewed date:09/05/2024 08:45:11 AM Interpretation: Performing Lab:[facility], [address] [place] [phone] Notes/Report: Prothrombin Time Whole Bld POC 24.2 11.1-13.5 sec INR WHOLE BLOOD POC Reviewed date:09/19/2024 09:54:44 AM Interpretation: Performing Lab:[facility], [address] [place] [phone] Notes/Report: PT, INR - [facility] 2.6 0.9-1.1 METER #: [id number] INTERNATIONAL NORMALIZED RATIO (INR) REFERENCE RANGES Reference [...] OC Reviewed date:09/19/2024 09:54:44 AM Interpretation: Performing Lab:[facility], [address] [place] [phone] Notes/Report: Prothrombin Time Whole Bld POC 31.6 11.1-13.5 sec INR WHOLE BLOOD POC Reviewed date:09/24/2024 11:58:00 AM Interpretation: Performing Lab:[facility], [address] [place] [phone] Notes/Report: PT, INR - [facility] 1.8 0.9-1.1 METER #: [id number] INTERNATIONAL NORMALIZED RATIO (INR) REFERENCE RANGES Reference [...] OC Reviewed date:09/24/2024 11:58:00 AM Interpretation: Performing Lab:[facility], [address] [place] [phone] Notes/Report: Prothrombin Time Whole Bld POC 21.8 11.1-13.5 sec Complete Blood Count Auto Di ff Reviewed date:10/04/2024 11:26:43 AM Interpretation: Performing Lab:[facility], [address] [place] [phone] Notes/Report: White Blood Count 10.5 4.8-10.8 X10*3/uL [...] NRBC Abs Auto 0.000 0.0-0.012 X10*3/uL Comprehensive [place]. Panel Fa st Reviewed date:10/04/2024 11:26:43 AM Interpretation: Performing Lab:[facility], [address] [place] [phone] Notes/Report: Sodium 144 135-145 mmol/L Potassium 4.6 [...] Panel Reviewed date:10/04/2024 11:26:43 AM Interpretation: Performing Lab:[facility], [address] [place] [phone] Notes/Report: Triglycerides 81 <150 mg/dL Desirable Triglyceride: [...] POC Reviewed date:10/04/2024 11:26:43 AM Interpretation: Performing Lab:[facility], [address] [place] [phone] Notes/Report: PT, INR - [facility] 2.0 0.9-1.1 METER #: [id number] INTERNATIONAL NORMALIZED RATIO (INR) REFERENCE RANGES Reference [...] OC Reviewed date:10/04/2024 11:26:43 AM Interpretation: Performing Lab:[facility], [address] [place] [phone] Notes/Report: Prothrombin Time Whole Bld POC 23.8 11.1-13.5 sec INR WHOLE BLOOD POC Reviewed date:10/19/2024 12:18:43 PM Interpretation: Performing Lab:[facility], [address] [place] [phone] Notes/Report: PT, INR - [facility] 1.7 0.9-1.1 METER #: [id number] INTERNATIONAL NORMALIZED RATIO (INR) REFERENCE RANGES Reference [...] OC Reviewed date:10/19/2024 12:18:43 PM Interpretation: Performing Lab:[facility], [address] [place] [phone] Notes/Report: Prothrombin Time Whole Bld POC 20.9 11.1-13.5 sec INR WHOLE BLOOD POC Reviewed date:10/30/2024 07:56:40 AM Interpretation: Performing Lab:[facility], [address] [place] [phone] Notes/Report: PT, INR - [facility] 2.5 0.9-1.1 METER #: [id number] INTERNATIONAL NORMALIZED RATIO (INR) REFERENCE RANGES Reference [...] OC Reviewed date:10/30/2024 07:56:40 AM Interpretation: Performing Lab:[facility], [address] [place] [phone] Notes/Report: Prothrombin Time Whole Bld POC 30.4 11.1-13.5 sec INR WHOLE BLOOD POC Reviewed date:11/12/2024 08:31:52 PM Interpretation: Performing Lab:[facility], [address] [place] [phone] Notes/Report: PT, INR - [facility] 2.0 0.9-1.1 METER #: [id number] INTERNATIONAL NORMALIZED RATIO (INR) REFERENCE RANGES Reference [...] OC Reviewed date:11/12/2024 08:31:52 PM Interpretation: Performing Lab:[facility], [address] [place] [phone] Notes/Report: Prothrombin Time Whole Bld POC 24.5 11.1-13.5 sec INR WHOLE BLOOD POC Reviewed date:12/01/2024 07:02:07 AM Interpretation: Performing Lab:[facility], [address] [place] [phone] Notes/Report: PT, INR - [facility] 1.8 0.9-1.1 METER #: [id number] INTERNATIONAL NORMALIZED RATIO (INR) REFERENCE RANGES Reference [...] OC Reviewed date:12/01/2024 07:02:07 AM Interpretation: Performing Lab:[facility], [address] [place] [phone] Notes/Report: Prothrombin Time Whole Bld POC 21.1 11.1-13.5 sec INR WHOLE BLOOD POC Reviewed date:12/14/2024 10:11:09 AM Interpretation: Performing Lab:[facility], [address] [place] [phone] Notes/Report: PT, INR - [facility] 2.0 0.9-1.1 METER #: [id number] INTERNATIONAL NORMALIZED RATIO (INR) REFERENCE RANGES Reference [...] OC Reviewed date:12/14/2024 10:11:09 AM Interpretation: Performing Lab:[facility], [address] [place] [phone] Notes/Report: Prothrombin Time Whole Bld POC 24.1 11.1-13.5 sec INR WHOLE BLOOD POC Reviewed date:12/28/2024 09:33:50 AM Interpretation: Performing Lab:[facility], [address] [place] [phone] Notes/Report: PT, INR - [facility] 2.7 0.9-1.1 METER #: [id number] INTERNATIONAL NORMALIZED RATIO (INR) REFERENCE RANGES Reference [...] OC Reviewed date:12/28/2024 09:33:50 AM Interpretation: Performing Lab:[facility], [address] [place] [phone] Notes/Report: Prothrombin Time Whole Bld POC 32.7 11.1-13.5 sec INR WHOLE BLOOD POC Reviewed date:01/19/2025 01:54:32 PM Interpretation: Performing Lab:[facility], [address] [place] [phone] Notes/Report: PT, INR - [facility] 1.6 0.9-1.1 METER #: [id number] INTERNATIONAL NORMALIZED RATIO (INR) REFERENCE RANGES Reference [...] OC Reviewed date:01/19/2025 01:54:32 PM Interpretation: Performing Lab:[facility], [address] [place] [phone] Notes/Report: Prothrombin Time Whole Bld POC 18.9 11.1-13.5 sec INR WHOLE BLOOD POC Reviewed date:02/02/2025 03:50:50 PM Interpretation: Performing Lab:[facility], [address] [place] [phone] Notes/Report: PT, INR - [facility] 1.9 0.9-1.1 METER #: [id number] INTERNATIONAL NORMALIZED RATIO (INR) REFERENCE RANGES Reference [...] OC Reviewed date:02/02/2025 03:50:50 PM Interpretation: Performing Lab:[facility], [address] [place] [phone] Notes/Report: Prothrombin Time Whole Bld POC 22.4 11.1-13.5 sec Complete Blood Count Auto Di ff Reviewed date:02/09/2025 01:28:09 PM Interpretation: Performing Lab:[facility], [address] [place] [phone] Notes/Report: White Blood Count 10.3 4.8-10.8 X10*3/uL [...] NRBC Abs Auto 0.000 0.0-0.012 X10*3/uL Comprehensive [place]. Panel Fa st Reviewed date:02/09/2025 01:28:09 PM Interpretation: Performing Lab:[address] [address] Notes/Report: Sodium 142 135-145 mmol/L Potassium 3.8 [...] Panel Reviewed date:02/09/2025 01:28:09 PM Interpretation: Performing Lab:[facility], [address] [place] [phone] Notes/Report: Triglycerides 122 <150 mg/dL Desirable Triglyceride: [...] Total Reviewed date:02/09/2025 01:28:09 PM Interpretation: Performing Lab:[facility], [address] [place] [phone] Notes/Report: Prostate Specific Ag Total 1.5 < [...] 30 93 9 (3)Catalona et al.:DEENA 277: 8997-3355 (1996) (4)Catalona et al.:DEENA 279: 5495-8587 (1997) (x)These estimates vary with age, ethnicity, [...] of disease. THIS TEST WAS PERFORMED AT: [facility] [address] [address] DEJAN CONWAY MD Free Prostate Spec Ag 0.5 INR WHOLE BLOOD POC Reviewed date:02/15/2025 08:16:17 PM Interpretation: Performing Lab:[address] [address] Notes/Report: PT, INR - [facility] 2.4 0.9-1.1 METER #: [id number] INTERNATIONAL NORMALIZED RATIO (INR) REFERENCE RANGES Reference [...] OC Reviewed date:02/15/2025 08:16:17 PM Interpretation: Performing Lab:[facility], [address] [place] [phone] Notes/Report: Prothrombin Time Whole Bld POC 28.9 11.1-13.5 sec INR WHOLE BLOOD POC Reviewed date:02/25/2025 01:03:25 PM Interpretation: Performing Lab:[facility], [address] [place] [phone] Notes/Report: PT, INR - [facility] 2.9 0.9-1.1 METER #: [id number] INTERNATIONAL NORMALIZED RATIO (INR) REFERENCE RANGES Reference [...] OC Reviewed date:02/25/2025 01:03:25 PM Interpretation: Performing Lab:[facility], [address] [place] [phone] Notes/Report: Prothrombin Time Whole Bld POC 35.4 11.1-13.[address] thoracic spine wo con Reviewed date:03/13/2025 07:03:37 AM Interpretation: Performing Lab: Notes/Report: [address] [address] [address] Scan Report Signed Patient: Jem Gallardo MR#: [id number] 3 : 1945 Acct:[id number] Age/Sex: 79 / M ADM Date: 03/05/25 Loc: HO.CT Attending Dr: Jose Felder MD Ordering Physician: Jose Felder MD Date of Service: 03/05/25 Procedure(s): CT thoracic spine wo IV con Accession Number(s): [id number] cc: Jose Felder MD Report Number: [id number]: Total DLP = 629.00 mGy-cm CLINICAL HISTORY: [...] in OV> 03/07/251914 DD/ 13 TD/TT: 03/07/251913 Sugar Controller: [place] [address] [address] Scan Report Signed Patient: Jem Gallardo MR#: [id number] 3 : 1945 Acct:[id number] Age/Sex: 79 / M ADM Date: 03/05/25 Loc: HO.CT Attending Dr: Jose Felder MD Ordering Physician: Jose Felder MD Date of Service: 03/05/25 Procedure(s): CT thoracic spine wo IV con Accession Number(s): [id number] cc: Jose Felder MD Report Number: [id number]: Total DLP = 629.00 mGy-cm CLINICAL HISTORY: [...] in OV> 03/07/251914 DD/ 13 TD/TT: 03/07/251913 Sugar Controller: CT cervical spine wo con Reviewed date:03/13/2025 07:03:37 AM Interpretation: Performing Lab: Notes/Report: [address] [address] [address] Scan Report Signed Patient: Jem Gallardo MR#: [id number] 3 : 1945 Acct:[id number] Age/Sex: 79 / M ADM Date: 03/05/25 Loc: HO.CT Attending Dr: Jose Felder MD Ordering Physician: Jose Felder MD Date of Service: 03/05/25 Procedure(s): CT cervical spine wo IV con Accession Number(s): [id number] cc: Jose Felder MD Report Number: [id number]: Total DLP = 990.70 mGy-cm CLINICAL HISTORY: [...] in OV> 03/07/251856 DD/ 55 TD/TT: 03/07/251855 Sugar Controller: [place] [address] [address] Scan Report Signed Patient: Jem Gallardo MR#: [id number] 3 : 1945 Acct:[id number] Age/Sex: 79 / M ADM Date: 03/05/25 Loc: HO.CT Attending Dr: Jose Felder MD Ordering Physician: Jose Felder MD Date of Service: 03/05/25 Procedure(s): CT cervical spine wo IV con Accession Number(s): [id number] cc: Jose Felder MD Report Number: [id number]: Total DLP = 990.70 mGy-cm CLINICAL HISTORY: [...] in OV> 03/07/251856 DD/ 55 TD/TT: 03/07/251855 Sugar Controller: INR WHOLE BLOOD POC Reviewed date:03/13/2025 07:03:37 AM Interpretation: Performing Lab:[facility], [address] [place] [address] Notes/Report: PT, INR - [facility] 1.8 0.9-1.1 METER #: [id number] INTERNATIONAL NORMALIZED RATIO (INR) REFERENCE RANGES Reference [...] OC Reviewed date:03/13/2025 07:03:37 AM Interpretation: Performing Lab:[facility], [address] [place] [address] Notes/Report: Prothrombin Time Whole Bld POC 21.6 11.1-13.5 sec INR WHOLE BLOOD POC Reviewed date:03/27/2025 05:06:06 AM Interpretation: Performing Lab:[facility], [address] [place] [phone] Notes/Report: PT, INR - [facility] 2.1 0.9-1.1 METER #: [id number] INTERNATIONAL NORMALIZED RATIO (INR) REFERENCE RANGES Reference [...] OC Reviewed date:03/27/2025 05:06:06 AM Interpretation: Performing Lab:[facility], [address] [place] [phone] Notes/Report: Prothrombin Time Whole Bld POC 24.9 11.1-13.5 sec INR WHOLE BLOOD POC Reviewed date:04/16/2025 07:53:07 PM Interpretation: Performing Lab:[facility], [address] [place] [phone] Notes/Report: PT, INR - [facility] 2.8 0.9-1.1 METER #: [id number] INTERNATIONAL NORMALIZED RATIO (INR) REFERENCE RANGES Reference [...] OC Reviewed date:04/16/2025 07:53:07 PM Interpretation: Performing Lab:[facility], [address] [place] [phone] Notes/Report: Prothrombin Time Whole Bld POC 33.5 11.1-13.5 sec INR WHOLE BLOOD POC Reviewed date:05/06/2025 11:18:32 AM Interpretation: Performing Lab:[facility], [address] [place] [phone] Notes/Report: PT, INR - [facility] 3.3 0.9-1.1 METER #: [id number] INTERNATIONAL NORMALIZED RATIO (INR) REFERENCE RANGES Reference [...] OC Reviewed date:05/06/2025 11:18:32 AM Interpretation: Performing Lab:[facility], [address] [place] [phone] Notes/Report: Prothrombin Time Whole Bld POC 39.1 11.1-13.5 sec XR DEXA axial skeleton Reviewed date:05/16/2025 08:52:07 AM Interpretation: Performing Lab: Notes/Report: [place] [facility] [address] [place] [address] Mammography Report Signed Patient: Jem Gallardo MR#: [id number] 3 : 1945 Acct:[id number] Age/Sex: 80 / M ADM Date: 05/12/25 Loc: YASHIRA Attending Dr: Jose Felder MD Ordering Physician: Jose Felder MD Results: Date of Service: 05/12/25 Follow Up: Procedure(s): XR DEXA axial skeleton Accession Number(s): [id number] cc: Jose Felder MD Reason For Exam: Q78.2 OSTEOPETROSIS EXAMINATION: DXA BONE DENSITY AXIAL HISTORY: Q78.2 OSTEOPETROSIS TECHNIQUE: PlanHQ Dual energy absorptiometry (DEXA) of the lumbar [...] is a trademark of the [employer]'s [place] for Metabolic Bone Disease, a World Health Organization (WHO) Collaborating Center. Electronically signed by: Jose Charles MD 05/12/2025 11:20 AM EDT RP Dictated By: Jose Charles MD Signed By: <Electronically signed by Jose Charles MD in OV> 05/12/25 1120 DD/ 1024 TD/TT: 05/12/25 1030 Sugar Controller: [place] [facility] [address] [place] [address] Mammography Report Signed Patient: Jme Gallardo MR#: [id number] 3 : 1945 Acct:[id number] Age/Sex: 80 / M ADM Date: 05/12/25 Loc: HO.MAMMO Attending Dr: Jose Felder MD Ordering Physician: Jose Felder MD Results: Date of Service: 05/12/25 Follow Up: Procedure(s): XR DEX A axial skeleton Accession Number(s): [id number] cc: Jose Felder MD Reason For Exam: Q78 .2 OSTEOPETROSIS EXAMINATION: DXA BON E DENSITY AXIAL HISTORY: Q78.2 OSTEOPETROSIS TECHNIQUE: PlanHQ Dual energy absorptiometry (DEXA) of the lumbar [...] of the [employer] [place] for Metabolic Bone Disease, a World Health Organization (WHO) Collaborating Center. Electronically jes d by: Jose Charles MD 05/12/2025 11:20 AM EDT RP Dictated By: Jose Charles MD Signed By: <Electronically signed by Jose Charles MD in OV> 05/12/25 1120 DD/ 1024 TD/TT: 05/12/25 1030 Sugar Controller: INR WHOLE BLOOD POC Reviewed date:05/29/2025 06:22:53 AM Interpretation: Performing Lab:[facility], [address] [place] [phone] Notes/Report: PT, INR - [facility] 2.4 0.9-1.1 METER #: [id number] INTERNATIONAL NORMALIZED RATIO (INR) REFERENCE RANGES Reference [...] Prothrombin Time Whole Bld P OC Reviewed date:05/29/2025 06:22:53 AM Interpretation: Performing Lab:[facility], [address] [place] [address] Notes/Report: Prothrombin Time Whole Bld POC 29.0 11.1-13.5 sec INR WHOLE BLOOD POC (Not yet reviewed by provider) Interpretation: Performing Lab:[facility], [address] [place] [phone] Notes/Report: PT, INR - [facility]ag Clinic 2.8 0.9-1.1 METER #: [id number] INTERNATIONAL NORMALIZED RATIO (INR) REFERENCE RANGES Reference [...] (Not yet reviewed by provider) Interpretation: Performing Lab:[facility], [address] [place] [phone] Notes/Report: Prothrombin Time Whole Bld POC 34.1 11.1-13.5 sec Reason For Referral Reason Evaluate and Treat New Lesion of Nose Diagnosis 1 Lesion of nose (J34. 89) Referral Organization Jose Felder III, MD Referring Provider First Name Jose Referring Provider Last Name Felder Referring Provider [facility]ity [facility]erred Provider [place] [facility] [place] [facility] Referred Provider Specialty Dermatology General Notes Tamie You 10/18/2024 10:59:17 AM > Referral FaxedKenyatta Amber 01/18/2025 02:35:46 PM > Contacted patient regarding referral. 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 Problem 877512423 Overweight (BMI 25.0-29.9) (E66.3) Active confirmed His body mass index is 27. We discussed diet and nutrition. We reviewed his weight loss strategy. Problem 105304816 Overweight (E66.3) Active confirmed He has gained 7 pounds. His body mass index is 27. We discussed his weight loss strategy. I recommended aggressive weight loss through regular physical activity and diet restricted in calories. Problem 43460925 Hypertension (I10) Active confirmed His blood pressure has been controlled and no change in his regimen was made today. Problem 90076877 Other chronic pain (G89.29) Active confirmed Problem 091554333 Solitary pulmonary nodule (R91.1) Active confirmed Problem 75809785 Cervical radiculopathy (M54.12) Active confirmed Follows vigorous exercise, driving golf balls, and radiates into the side of the neck and the upper back. He is currently using heat and rest Tylenol ibuprofen and massage. If it does not clear quickly he will be given dexamethasone. If necessary MRI imaging of the neck to assess for a herniated disc will be done. Problem 428035053 Environmental allergies (Z91.09) Active confirmed He has noted itching around his eyes and nasal congestion. He is using [id number] er medication. I recommended fluticasone and loratadine. Problem 513059833 Diabetes mellitus type 2 in nonobese (E11.9) Active confirmed He was continued on current therapy. He will be back in the office in the near future to reevaluate this problem. 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 Problem [id number] DVT (deep venous thrombosis) (I82.409) Active confirmed He has had no blood clots. Problem 489001605 Lung cancer (C34.90) Active confirmed He remains in remission with no relapse. He is no longer smoking. Problem Thoracic back pain (272934154) Thoracic back pain (M54.6) Active confirmed The x-rays showed age related degenerative changes, but no specific cause of the back pain. An MRI is not possible because of the metal plates and his spine. A CT scan of his cervical and thoracic spine has been ordered to evaluate discs and the spinal canal. Problem 3375080 Protein S deficiency (D68.59) Active confirmed He is doing well with his chronic anticoagulatio n. The protein S deficiency is no indication for lifelong therapy. Problem Neck pain (68006577) Cervical pain (neck) (M54.2) Active confirmed He has had neurosurgery in the past on his lower cervical spine leaving him with a metal plate and a . This was done by who is now at [facility]. Problem 58273402 Other depression (F32.89) Active confirmed His medication was increased to 100 mg daily. A follow-up visit was arranged. He has no suicidal ideation and is beginning to experience improvement. Problem 829429181 Benign prostatic hyperplasia, unspecified whether lower urinary tract symptoms present (N40.0) Active confirmed He reports rising from sleep about twice a night to urinate. We have discussed some lifestyle modifications he could make to reduce this nocturia. Problem 400436632 Sensorineural hearing loss (SNHL) of both ears (H90.3) Active confirmed compedithsated with hearing aids. Problem 83139075 Chronic nonintractable headache, unspecified headache type (R51) Active confirmed His headaches are improved. They're less frequent. He will continue on current therapy. Problem Disease caused by Severe acute respiratory syndrome coronavirus 2 (disorder) (203410775) COVID-19 virus infection (U07.1) Active confirmed He has recovered from his collins virus infection with no lung symptoms. Problem 103176591031 Skin lesion of face (L98.9) Active confirmed The area on his nose has the appearance of an actinic keratosis. It has only recently appeared. I have made a referral to dermatology for definitive diagnosis and treatment. Problem 764748930 Recurrent low back pain (M54.50) Active confirmed [...] Provider Diagnosis Jose Felder III, MD [address] [place] [address] [place] [address] 08/23/2024 Jose Felder COVID-19 virus infec tion U07.1 ; 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 ; Former smoker Z87.891 ; Lung cancer C34.90 ; Environmental allergies Z91.09 and Overweight E66.3 Jose Felder III, MD [address] [place] [address] [address] [place] [address] 10/04/2024 Jose Felder COVID-19 virus infec tion [...] Overweight E66.3 Jose Felder III, MD [address] [place] [address] [address] [place] [address] 10/15/2024 Jose Felder Skin lesion of face L98.9 ; 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 ; Former smoker Z87.891 ; Lung cancer C34.90 ; Environmental allergies Z91.09 ; Hypertension I10 ; DVT (deep venous thrombosis) I82.409 ; Overweight (BMI 25.0-29.9) E66.3 ; Chronic nonintractable headache, unspecified headache type R51 ; 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 and Other depression F32.89 Jose Felder III, MD [address] [place] [address] [place] [address] 01/27/2025 Jose Felder 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 ; Recurrent low back pain M54.50 ; Former smoker Z87.891 ; Lung cancer C34.90 ; Environmental allergies Z91.09 ; Chronic nonintractable headache, unspecified headache type R51 ; Overweight E66.3 and Benign prostatic hyperplasia, unspecified whether lower urinary tract symptoms present N40.0 Jose Felder III, MD [address] [place] [address] [address] [place] [address] 02/09/2025 Jose Felder Suspected sleep apne a R29.818 ; Labyrinthitis of both ears H83.03 ; 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 ; Lung cancer C34.90 ; Overweight (BMI 25.0-29.9) E66.3 ; DVT (deep venous thrombosis) I82.409 ; Hypertension I10 ; 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 ; Benign prostatic hyperplasia, unspecified whether lower urinary tract symptoms present N40.0 and Former smoker Z87.891 Jose Felder III, MD [address] [place] [address] [address] [place] [address] 02/16/2025 Jose Felder Thoracic back pain M 54.6 ; Former smoker Z87.891 ; Lung cancer C34.90 ; Environmental allergies Z91.09 ; Overweight (BMI 25.0-29.9) E66.3 ; 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 ; Other depression F32.89 and Benign prostatic hyperplasia, unspecified whether lower urinary tract symptoms present N40.0 Jose Felder III, MD [address] [place] [address] [address] [place] [address] 02/24/2025 Jose Felder Thoracic back pain M 54.6 ; Cervical pain (neck) M54.2 ; 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 ; Former smoker Z87.891 ; Lung cancer C34.90 ; Overweight (BMI 25.0-29.9) E66.3 ; Chronic nonintractable headache, unspecified headache type R51 and 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 Jose Felder III, MD [address] [place] [address] [address] [place] [address] 03/10/2025 Jose Felder Former smoker Z87.89 1 ; Cervical radiculopathy M54.12 ; Hypertension I10 ; Lung cancer C34.90 ; 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 ; Overweight (BMI 25.0-29.9) E66.3 ; 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 ; DVT (deep venous thrombosis) I82.409 and Environmental allergies Z91.09 Jose Felder III, MD [address] [place] [address] [place] [address] 03/15/2025 Jose Felder Hypertension I10 ; P ain in thoracic spine M54.6 ; Overweight (BMI 25.0-29.9) E66.3 ; 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 ; Former smoker Z87.891 ; Lung cancer C34.90 and Environmental allergies Z91.09 Jose Felder III, MD [address] [place] [address] [place] [address] 05/18/2025 Jose Felder Lung cancer C34.90 ; [...] Cervical radiculopathy M54.12 Jose Felder III, MD [address] [place] [address] [address] [place] [address] 08/23/2024 Jose Felder III, MD [address] [place] [address] [place] [address] 08/31/2024 Jose Felder COVID-19 virus infec tion U07.1 Jose Felder III, MD [address] [place] [address] [address] [place] [address] 08/31/2024 Jose Felder COVID-19 virus infec tion U07.1 Jose Felder III, MD [address] [place] [address] [place] [address] 09/17/2024 Jose Felder III, MD [address] [place] [address] [place] [address] 02/08/2025 Jose Felder III, MD [address] [place] [address] [address] [place] [address] 03/02/2025 Jose Felder Assessments Encounter Date Diagnosis (ICD Code) Assessment Notes Treat ment Notes Treatment Clinical Notes 08/23/2024 Chronic lymphoid leukemia (ICD-10 - C91.10) [...] was done by who is now at [facility]. 03/10/2025 Former smoker (ICD-1 0 - Z87.891) [...] He seems stable at this time. 08/23/2024 Former smoker (ICD-1 0 - Z87.891) [...] nutrition. We reviewed his weight loss strategy. 08/23/2024 Lung cancer (ICD-10 - C34.90) He [...] eyes and nasal congestion. He is using ylqn-joo-lrnfqkj medication. I recommended fluticasone and loratadine. 02/24/2025 [...] remission since he finished his chemotherapy. 08/23/2024 Environmental allergies (ICD-10 - Z91.09) He has noted itching around his eyes and nasal congestion. He is using psdm-iim-zrzxrxa medication. I recommended fluticasone and loratadine. 10/04/2024 Former smoker (ICD-1 0 - Z87.891) He is highly motivated not to smoke and has a plan to prevent relapse in times of stress or illness. 10/15/2024 Environmental allergies (ICD-10 - Z91.09) He has noted itching around his eyes and nasal congestion. He is using qiwo-wqa-btiwcyr medication. I recommended fluticasone and loratadine. 01/27/2025 Environmental allergies (ICD-10 - Z91.09) He has noted itching around his eyes and nasal congestion. He is using utxv-ijw-kqzrvdm medication. I recommended fluticasone and loratadine. 02/09/2025 [...] eyes and nasal congestion. He is using wiek-izk-wonduga medication. I recommended fluticasone and loratadine. 08/23/2024 [...] eyes and nasal congestion. He is using odol-lws-licvikb medication. I recommended fluticasone and loratadine. 10/15/2024 [...] eyes and nasal congestion. He is using moya-vkj-ejzceyu medication. I recommended fluticasone and loratadine. 05/18/2025 [...] eyes and nasal congestion. He is using jzkb-uck-fzfifos medication. I recommended fluticasone and loratadine. 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 05/18/2025 Diabetes mellitus type [...] C) 02/26/2021 PROFILE, FASTING (COMPREHENSIVE METABOLI C) 05/18/2025 PROFILE, FASTING (COMPREHENSIVE METABOLI C) 12/09/2022 PROFILE, [...] PANEL 08/19/2019 PSA, TOTAL 06/19/2022 PSA, TOTAL 05/18/2025 PSA, TOTAL 01/27/2024 PSA, TOTAL 12/09/2022 PSA, TOTAL 09/30/2023 PSA, TOTAL 10/04/2024 PSA, TOTAL 07/11/2021 PSA, TOTAL+FREE 02/26/2021 CBC w DIFF 07/06/2018 CBC w DIFF 07/11/2021 CBC w DIFF 06/07/2024 CBC w DIFF 01/25/2020 CBC w DIFF 06/19/2022 CBC w DIFF 10/14/2018 CBC w DIFF 03/26/2022 CBC w DIFF 05/08/2017 CBC w DIFF 01/27/2025 CBC w DIFF 05/18/2025 CBC w DIFF 11/18/2019 CBC w DIFF [...] Panel 06/07/2024 Lipid Panel 01/27/2025 Lipid Panel 05/18/2025 Lipid Panel 01/27/2024 Lipid Panel 03/15/2025 PSA Free and Total 01/27/2025 Vitamin D 25-OH Total 05/18/2025 INR WHOLE BLOOD POC 06/24/2025 Prothrombin Time Whole Bld POC CT cervical spine wo con 02/24/2025 Next Appt Details Provider Name:Jose Rajendra Felder , 10/05/2025 02:30:00 PM, [address] [place] [address] [address], [place], [address], Insurance Providers Payer Name Payer Address Payer Phone Subscriber Number Group Number Insured Name Patient Relationship to Insured Coverage Start Date Coverage End Date [facility] [address] [place], [place] [id number] Jme Gallardo Self - patient is the insured 4 MEDICARE NGS [address] [place] [address] [id number] Jem Gallardo Self - patient is the insured Medical (General) History Medical History History ICD Code migraine headaches allergies hypertension anal fissure staphylococcal infection 1999 chronic lymphocytic leukemia in [facility] n lung cancer, non-small cell obesity former smoker dvt february 2015 right leg protein S deficiency Covid 22 August 2024 Surgical History Surgery Date(Month/Year) No history Cyst removed from his back 08/2022 cataract right eye 06/2018 FNA superior mediastinal mass Hospitalization History Reason Date(Month/Year) No history
== END 2025-06-24 09:04 | disposition home or self-care (01) ==
LOC: HO.ACS 08:54
PROVIDERS: PCP Internal Medicine Medical Oncology; Visit Provider Internal Medicine Medical Oncology
DX: Z79.01 Long term (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 (principal)

== ENCOUNTER → 2025-06-24 08:54 | Outpatient (BNVA) | payer MEDICARE, SELFPAY | PROVIDERS: PCP Internal Medicine Medical Oncology; Visit Provider Internal Medicine Medical Oncology | DX: Z79.01 Long term (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 (principal) | CPT/HCPCS: 85610; 99211 ==

== ENCOUNTER 2025-07-29 08:01 | Outpatient (AMB) | payer MEDICARE, SELFPAY ==
--- OUTSIDE RECORDS SUMMARY | 2025-02-08 09:26 | XMS_ITS ---
Author Organization Jose Felder III, MD Address [address] [facility] [place] [address] [place] [place] [address] Care Team Providers Care Cigarette Seller Name Role Phone Dr. Jose Felder III Primary Care Provider REASON FOR VISIT Regarding medication list Social History Sex Assigned At : Social History Observation Description Sex Assigned At Male Encounters Encounter Location Date Provider Diagnosis Jose Felder III, MD [address] [place] [address] [place] [address] 02/08/2025 Jose Felder Plan Of Treatment Next Appt Details Provider Name:Jose Felder , 10/05/2025 02:30:00 PM, [address] [place] [address] [place], [address], Progress Notes * Jem QUINTEROSDOB:1945 ( 79 yo M)Acc No.[id number]:02/08/2025 Patient: Jme JI :1945 A ge:79 Y S ex:Male Address:[place] [address] * true * Date: Generated for Printi ng/Faxing/eTransmitting on: 09/29/2024 08:03 AM EST
--- OUTSIDE RECORDS SUMMARY | 2025-02-09 08:15 | XMS_ITS ---
Author Organization Jose Felder III, MD Address [address] [place] [address] [place] [address] Care Team Providers Care Horse Racer Name Role Phone Dr. Jose Felder III Primary Care Provider Allergies Allergen (clinical drug ingredient) Drug/Non Drug Allergy documented on EMR Reaction Allergy Type Onset Date Status No Known Drug Allergy Unknown Drug Allergy Active Seasonale Unknown Drug Allergy Active Reason For Referral Reason eval and treat needs sleep study daytime somnolence Diagnosis 1 Daytime somnolence ( R40.0) Referral Organization Jose Felder III, MD Referring Provider First Name Jose Referring Provider Last Name Bradford Referring Provider Speciality Internal M edicine Referred Provider [facility] er, Pulmonology Referred Provider Specialty Pulmonary [facility] General Notes Bhavana Salinas CMA 02/10 09:06:58 AM > ref/demo/progress note/labs faxed to [place] pulmonary dept Referral Priority Routine Referral Appointment Date 03/16/2025 REASON FOR VISIT Recent episodes of abrupt daytime somnolence, Abrupt episodes of dizziness and vertigo, History of CLL, Review of non-small cell lung cancer, History of DVT, Headaches, Hypertension Medications Medication SIG (Take, Route, Frequency, Duration) Notes Start Date End Date Status Meclizine HCl 25 MG 1 or 2 tablets every 8 hours for vertigo Orally every 8 hours for 6 days 02/09/2025 Active Losartan Potassium 25 MG as directed Ora lly Once a day Active Meclizine HCl 50 MG 1 tablet Orally ever y 8 hrs for 7 days 02/09/2025 Active Warfarin Sodium 5 MG 1 1/2 tablet Orally Once a day Active Simvastatin 40 MG 1 Tablet Orally Once a day Active Venlafaxine HCl 50 MG 1 tablet with food Orally Once a day 04/16/2023 Active SUMAtriptan Succinate 100 MG TAKE 1 TABLET BY MOUTH EVERY DAY AT THE ONSET OF MIGRAINE; MAY REPEATevery 22 HOURS IF when SYPTOMS PERSISTS; MAX OF 2 TS/ DAY Orally Once a day Active Social History [...] Additional Findings: Tobacco non-user Ex-cigaret te smoker Vital Signs Temperature 97.5 degrees Fahrenheit 02/10/20 25 Blood pressure systolic 141 mm Hg 02/10/20 25 Blood pressure diastolic 82 mm Hg 025 Heart Rate 88 /min 02/09/2025 Respiratory Rate 14 /min 02/09/2025 Height 71 in 02/09/2025 Weight 194 lbs 02/09/2025 BMI 27.05 kg/m2 02/09/2025 Oximetry 98 % 02/09/2025 Encounters Encounter Location Date Provider Diagnosis Jose Felder III, MD [address] [place] [address] DR ORDONEZ, CALEB [address] 02/09/2025 Jose Felder Suspected sleep apne a R29.818 ; Labyrinthitis of both ears H83.03 ; 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 I have instructed him not to drive an automobile or operate heavy machinery. 02/09/2025 Labyrinthitis of both ears (ICD-10 - H83.03) The description of his dizziness is most consistent with bilateral labyrinthitis. I have explained this to him and given him meclizine. Examination of the ears was unremarkable. It is episodic was not present during today's examination. Manipulation of his head and changing of his physician today did not reproduce his symptoms. 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 02/09/2025 Lung cancer (ICD-10 - C34.90) He remains in remission with no relapse. He is no longer smoking. 02/09/2025 Overweight (BMI 25.0-29.9) (ICD-10 - E66.3) He has lost 5 pounds and is still overweight. We discussed diet and nutrition. We made a plan to lose weight at a rate of one half of a pound per week through a diet restricted in calories combined with physical activity. 02/09/2025 DVT (deep venous thrombosis) (ICD-10 - I82.409) He has had no blood clots. 02/09/2025 Hypertension (ICD-10 - I10) His blood pressure is stable today. 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 The protein S deficiency is no indication for lifelong therapy. 02/09/2025 Benign prostatic hyperplasia, unspecified whether lower urinary tract symptoms present (ICD-10 - N40.0) He reports rising from sleep about twice a night to urinate. We have discussed some lifestyle modifications he could make to reduce this nocturia. 02/09/2025 Former smoker (ICD-10 - Z87.891) He is highly motivated not to smoke and has a plan to prevent relapse in times of stress or illness. Plan Of Treatment Medication Medication Name Sig Start Date Stop Date Notes Meclizine HCl 25 MG 1 or 2 tablets every 8 hours for vertigo Orally every 8 hours for 6 days 02/09/2025 Losartan Potassium 25 MG as directed Orally Once a day Meclizine HCl 50 MG 1 tablet Orally ever y 8 hrs for 7 days 02/09/2025 Warfarin Sodium 5 MG 1 1/2 tablet [...] 2 TS/ DAY Orally Once a day Referrals Referral Date Details 02/09/2025 02/09/2025, eval and treat needs sleep study daytime somnolence, Pulmonology [facility] Next Appt Details Follow Up: 1 Week, Reason: a s scheduled Provider Name:Jose Felder , 10/05/2025 02:30:00 PM, [address] [place] [address] [place], [address], Progress Notes * Jem QUINTEROSDOB:1945 ( 79 yo M)Acc No.[id number]:02/09/2025 Progress Notes Patient: Jem JI Provider: Annalise Felder MD :1945 A ge:79 Y S ex:Male Date:02/09/2025 Address: [place], [id number] Subjective: * Chief Complaints: * R ecent episodes of abrupt daytime somnolenceAbrupt episodes of dizziness and vertigoHistory of CLLReview of non-small cell lung cancerHistory of DVTHeadachesHypertension * HPI: C OVID-19 Screening: He comes to the office today complaining of episodes of daytime somnolence as well as of acute onset of dizziness which he describes as difficulty balancing and feeling drunk and having the world spinning. He has had no loss of hearing. His sleepiness has occurred while driving and he had to char puller to the side and once took a nap. He says he is sleeping well at night. He is uncertain If he snores loudly. He has no history of sleep apnea but his sleep study has been ordered. The dizziness sounds like vertigo and labyrinthitis and he was given a prescription for meclizine. He was cautioned not to drive for the next 7 days. His neurological examination was normal today. His carotid arteries are intact. Blood work was reviewed and showed no significant abnormalities that would explain these symptoms. He is taking no new medications. Questions H ave you had any new onset fever, chills, cough, congestion, sore throat, shortness of breath, muscle aches? N o * ROS: G eneral/Constitutional: pain o nly normal aches and pains. C hills d enies.?Fatigue a dmits. F ever d enies. E NT: Decreased hearing i n both ears. R espiratory: Cough d enies. C ardiovascular: [...] have been noted. G enitourinary: Frequent urination d enies. M usculoskeletal: Muscle aches d enies. P ainful joints d enies. S ciatica d enies. W eakness d enies. S kin: Itching d enies. R nik d enies. S kin lesion(s)?denies. N eurologic: Difficulty speaking d enies. D izziness d enies.?Headache t hat is chronic. L ow back pain d enies. P sychiatric: Depressed mood w hich is mild. 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 The patient is retired and does not mention any smoking, drinking, or drug use habits. He does not mention his diet, exercise habits, work environment, or living situation. * Medications: T akingLosartan Potassium 25 MG Tablet as directed Orally Once a day Warfarin Sodium 5 MG Tablet 1 1/2 tablet Orally Once a day Venlafaxine HCl 50 [...] 1/2 tablet Orally Once a day Taking Venlafaxine HCl [...] reconciled with the patient * Allergies: S easonalMoshe Known Drug Allergyno[Allergies Verified] Objective: * Vitals: H t: 71, Wt:194, BMI:27.05, BP:141/82, HR:88, RR:14, Temp:97.5, Oxygen sat %:98, Wt-k. * P ast Orders: L ab:PSA Free and Total (Order Date - 02/08/2025) (Collection Date & Time - 02/08/2025 06:19 AM) Value Reference Range Prostate Specific Ag Total 1.5 < OR = 4.0 - ng/mL Percent Free Prostate Spec Ag 33 >25 - % (c alc) Free Prostate Spec Ag 0.5 - ng/mL Lab:Lipid Panel * Collection Date 02/08/2025 10/04/2024 06/07/2024 Collection Time 06:19 AM 06:09 AM 06:36 AM Order Date 02/08/2025 10/04/2024 06/07/2024 Triglycerides 122 (Ref Range: <150 mg/dL) 81 (Ref Range: <150 mg/dL) 66 (Ref Range: <150 mg/dL) Cholesterol 150 (Ref Range: <200 mg/dL) 164 (Ref Range: <200 mg/dL) 147 (Ref Range: <200 mg/dL) LDL Cholesterol Calculated 89 (Ref Range: <100 mg/dL) 104 H (Ref Range: <100 mg/dL) 91 (Ref Range: <100 mg/dL) HDL Cholesterol 37 L (Ref Range: >40 mg/dL) 44 (Ref Range: >40 mg/dL) 43 (Ref Range: >40 mg/dL) * Lab:Comprehensive [place]. Pane l Fast * Collection Date 02/08/2025 10/04/2024 06/07/2024 Collection Time 06:19 AM 06:09 AM 06:36 AM Order Date 02/08/2025 10/04/2024 06/07/2024 Sodium 142 (Ref Range: 135-145 mmol/L) 144 (Ref Range: 135-145 mmol/L) 144 (Ref Range: 135-145 mmol/L) Bilirubin Total 0.7 (Ref Range: 0.0-1.0 mg/dL) 0.6 (Ref Range: 0.0-1.0 mg/dL) 0.8 (Ref Range: 0.0-1.0 mg/dL) Aspartate Amino Transferase 35 (Ref Range: 5-37 U/L) 25 (Ref Range: 5-37 U/L) 27 (Ref Range: 5-37 U/L) Alanine Aminotransferase 25 (Ref Range: 0-40 U/L) 23 (Ref Range: 0-40 U/L) 25 (Ref Range: 0-40 U/L) Total Protein 6.3 L (Ref Range: 6.5-8.0 g/dL) 7.5 (Ref Range: 6.5-8.0 g/dL) 6.9 (Ref Range: 6.5-8.0 g/dL) Albumin Level 3.8 (Ref Range: 3.5-5.0 g/dL) 4.1 (Ref Range: 3.5-5.0 g/dL) 4.0 (Ref Range: 3.5-5.0 g/dL) Alkaline Phosphatase 64 (Ref Range: 39-117 U/L) 72 (Ref Range: 39-117 U/L) 64 (Ref Range: 39-117 U/L) Potassium 3.8 (Ref Range: 3.3-5.1 mmol/L) 4.6 (Ref Range: 3.3-5.1 mmol/L) 4.7 (Ref Range: 3.3-5.1 mmol/L) Chloride 109 H (Ref Range: 96-108 mmol/L) 109 H (Ref Range: 96-108 mmol/L) 108 (Ref Range: 96-108 mmol/L) Carbon Dioxide 25 (Ref Range: 22-29 mmol/L) 28 (Ref Range: 22-29 mmol/L) 27 (Ref Range: 22-29 mmol/L) Anion Gap 12 (Ref Range: 12-20) 12 (Ref Range: 12-20) 14 (Ref Range: 12-20) Blood Urea Nitrogen 19 H (Ref Range: 9-16 mg/dL) 22 H (Ref Range: 9-16 mg/dL) 20 H (Ref Range: 9-16 mg/dL) Creatinine 0.73 (Ref Range: 0.5-1.4 mg/dL) 0.77 (Ref Range: 0.5-1.4 mg/dL) 0.79 (Ref Range: 0.5-1.4 mg/dL) Estimated Glomerular Filt Rate > 60 > 60 > 60 Glucose Fasting 126 H (Ref Range: 60-99 mg/dL) 105 H (Ref Range: 60-99 mg/dL) 98 (Ref Range: 60-99 mg/dL) Calcium 8.4 (Ref Range: 8.4-10.2 mg/dL) 8.8 (Ref Range: 8.4-10.2 mg/dL) 9.4 (Ref Range: 8.4-10.2 mg/dL) * Lab:Complete Blood Count Aut o Diff * Collection Date 02/08/2025 10/04/2024 06/07/2024 Collection Time 06:19 AM 06:09 AM 06:36 AM Order Date 02/08/2025 10/04/2024 06/07/2024 White Blood Count 10.3 (Ref Range: 4.8-10.8 X10*3/uL) 10.5 (Ref Range: 4.8-10.8 X10*3/uL) 9.5 (Ref Range: 4.8-10.8 X10*3/uL) Red Blood Count 4.03 L (Ref Range: 4.60-5.80 X10*6/uL) 4.70 (Ref Range: 4.60-5.80 X10*6/uL) 4.37 L (Ref Range: 4.60-5.80 X10*6/uL) Hemoglobin 12.6 L (Ref Range: 14.0-18.0 g/dl) 14.6 (Ref Range: 14.0-18.0 g/dl) 13.5 L (Ref Range: 14.0-18.0 g/dl) Hematocrit 36.6 L (Ref Range: 42.0-52.0 %) 43.6 (Ref Range: 42.0-52.0 %) 39.9 L (Ref Range: 42.0-52.0 %) Mean Corpuscular Volume 90.8 (Ref Range: 80.0-98.0 fL) 92.8 (Ref Range: 80.0-98.0 fL) 91.3 (Ref Range: 80.0-98.0 fL) Mean Corpuscular Hemoglobin 31.3 (Ref Range: 27.0-33.0 pg) 31.1 (Ref Range: 27.0-33.0 pg) 30.9 (Ref Range: 27.0-33.0 pg) Mean Corpuscular HGB Conc 34.4 (Ref Range: 31.0-36.0 g/dl) 33.5 (Ref Range: 31.0-36.0 g/dl) 33.8 (Ref Range: 31.0-36.0 g/dl) Red Cell Distribution Width 14.0 (Ref Range: 11.0-16.0 %) 14.3 (Ref Range: 11.0-16.0 %) 14.0 (Ref Range: 11.0-16.0 %) Platelet Count 328 (Ref Range: 160-400 X10*3/uL) 279 (Ref Range: 160-400 X10*3/uL) 355 (Ref Range: 160-400 X10*3/uL) Mean Platelet Volume 9.9 (Ref Range: 9.4-12.4 fL) 11.4 (Ref Range: 9.4-12.4 fL) 9.9 (Ref Range: 9.4-12.4 fL) Neutrophils Percent Auto 55.7 (Ref Range: 45-73 %) 52.7 (Ref Range: 45-73 %) 53.7 (Ref Range: 45-73 %) Imm Gran Pct Auto 0.4 (Ref Range: 0.0-0.4 %) 0.3 (Ref Range: 0.0-0.4 %) 0.4 (Ref Range: 0.0-0.4 %) Lymphocytes Percent Auto 32.6 (Ref Range: 20-40 %) 35.5 (Ref Range: 20-40 %) 33.7 (Ref Range: 20-40 %) Monocytes Percent Auto 8.6 (Ref Range: 2-11 %) 9.2 (Ref Range: 2-11 %) 10.0 (Ref Range: 2-11 %) Eosinophils Percent Auto 1.8 (Ref Range: 0-4 %) 1.3 (Ref Range: 0-4 %) 1.5 (Ref Range: 0-4 %) Basophils Percent Auto 0.9 (Ref Range: 0-2 %) 1.0 (Ref Range: 0-2 %) 0.7 (Ref Range: 0-2 %) NRBC Pct Auto 0.0 (Ref Range: 0.0-0.2 /100WBC) 0.0 (Ref Range: 0.0-0.2 /100WBC) 0.0 (Ref Range: 0.0-0.2 /100WBC) Neutrophils Absolute Auto 5.8 (Ref Range: 2.0-8.3 x10*3/uL) 5.5 (Ref Range: 2.0-8.3 x10*3/uL) 5.1 (Ref Range: 2.0-8.3 x10*3/uL) Imm Gran Abs Auto 0.04 H (Ref Range: 0.00-0.03 X10*3/uL) 0.03 (Ref Range: 0.00-0.03 X10*3/uL) 0.04 H (Ref Range: 0.00-0.03 X10*3/uL) Lymphocytes Absolute Auto 3.4 (Ref Range: 1.2-4.9 X10*3/uL) 3.7 (Ref Range: 1.2-4.9 X10*3/uL) 3.2 (Ref Range: 1.2-4.9 X10*3/uL) Monocytes Absolute Auto 0.9 (Ref Range: 0.1-1.2 X10*3/uL) 1.0 (Ref Range: 0.1-1.2 X10*3/uL) 1.0 (Ref Range: 0.1-1.2 X10*3/uL) Eosinophils Absolute Auto 0.2 (Ref Range: 0.0-0.4 X10*3/uL) 0.1 (Ref Range: 0.0-0.4 X10*3/uL) 0.1 (Ref Range: 0.0-0.4 X10*3/uL) Basophils Absolute Auto 0.1 (Ref Range: 0.0-0.2 X10*3/uL) 0.1 (Ref Range: 0.0-0.2 X10*3/uL) 0.1 (Ref Range: 0.0-0.2 X10*3/uL) NRBC Abs Auto 0.000 (Ref Range: 0.0-0.012 X10*3/uL) 0.000 (Ref Range: 0.0-0.012 X10*3/uL) 0.000 (Ref Range: 0.0-0.012 X10*3/uL) * Examination: G eneral Examination: GENERAL APPEARANCE: p leasant, well nourished, well developed, in no acute distress, calm and relaxed, overweight, elderly man. HEAD: a traumatic, normocephalic. EYES: e talon, perrla, anicteric, conjugate. EARS: n ormal. NOSE: s eptum intact. ORAL CAVITY: n ormal, unremarkable. NECK/THYROID: n o jugular venous distention, no carotid bruit, thyroid normal, Old surgical scar base of right neck. LYMPH NODES: n o enlarged lymph nodes,spleen normal. SKIN: n o suspicious lesions, anicteric. HEART: n o clicks, gallops, murmurs, or rubs, regular rhythm, S1, S2 normal, no s3, or vascular bruits. LUNGS: c lear to auscultation . BREASTS: no masses palpable bilaterally. ABDOMEN: b owel sounds normal, no ascites, no organomegaly, no mass. RECTAL EXAM: n ot examined. MUSCULOSKELETAL: e xtremities unremarkable, no clubbing, cyanosis or edema. PERIPHERAL PULSES: n ormal. NEUROLOGIC: a lert and oriented, cranial nerves 2-12 grossly intact, deep tendon reflexes 2+ symmetrical, motor strength normal upper and lower extremities, sensory exam intact, Speech fluent when examined today K normal exam normal for age. PSYCH: a lert, oriented. Assessment: * Assessment: 1. S uspected sleep apnea - R29.818 (Primary) N otes :I have ordered a sleep study to see if he has sleep apnea that would explain the sudden episodes of daytime somnolence. I have instructed him not to drive an automobile or operate heavy machinery. 2 . L abyrinthitis of both ears - H83.03 N otes :The description of his dizziness is most consistent with bilateral labyrinthitis. I have explained this to him and given him meclizine. Examination of the ears was unremarkable. It is episodic was not present during today's examination. Manipulation of his head and changing of his physician today did not reproduce his symptoms. 3 . C hronic lymphoid leukemia - C91.10 N otes :This diagnosis remains in remission since he finished his chemotherapy. 4 . L sandra cancer - C34.90 N otes :He remains in remission with no relapse. He is no longer smoking. 5 . O verweight (BMI 25.0-29.9) - E66.3 N otes :He has lost 5 pounds and is still overweight. We discussed diet and nutrition. We made a plan to lose weight at a rate of one half of a pound per week through a diet restricted in calories combined with physical activity. 6 . D VT (deep venous thrombosis) - I82.409 N otes :He has had no blood clots. 7 . H ypertension - I10 N otes :His blood pressure is stable today. 8 . P rotein S deficiency - D68.59 N otes :He is doing well with his chronic anticoagulation. The protein S deficiency is no indication for lifelong therapy. 9 . B enign prostatic hyperplasia, unspecified whether lower urinary tract symptoms present - N40.0 N otes :He reports rising from sleep about twice a night to urinate. We have discussed some lifestyle modifications he could make to reduce this nocturia. 1 0. F ormer smoker - Z87.891 N otes :He is highly motivated not to smoke and has a plan to prevent relapse in times of stress or illness. Plan: * Treatment: * Procedure Codes: 9 4760 MEASURE BLOOD OXYGEN LEVEL * Preventive Medicine: Counseling: C are goal follow-up plan: Counseling for abnormal BMI given Y es Above Normal BMI Follow-up D ietary management education, guidance, and counseling S moking/Tobacco Use Patient counseled on the dangers of tobacco use and urged to quit. 0 02/09/2025 * Follow Up: 1 Week (Reason: as scheduled) * Images: * Sign off status: Completed true * Provider: Annalise Felder MD Date: 0 02/09/2025 Generated for Fradny mittal/Apple/Rubenitting on: 1 09/29/2024 08:03 AM EST History and Physical Notes [...] stention, no carotid bruit, thyroid normal, Old surgical scar base of right neck HEART: no clicks, gallops, murmurs, or rubs, regular rhythm, S1, S2 normal, no s3, or vascular bruits LUNGS: clear to auscultatio n ABDOMEN: bowel sounds normal, no ascites, no organomegaly, no mass NEUROLOGIC: alert and oriented, cranial nerves 2-12 grossly intact, deep tendon reflexes 2+ symmetrical, motor strength normal upper and lower extremities, sensory exam intact, Speech fluent when examined today K normal exam normal for age SKIN: no suspicious lesion s, anicteric PERIPHERAL PULSES: normal BREASTS: no masses palpable b ilaterally MUSCULOSKELETAL: extremities unremark able, no clubbing, cyanosis or edema LYMPH NODES: no enlarged lymph no cristi,spleen normal RECTAL EXAM: not examined PSYCH: alert, oriented ORAL CAVITY: normal, unremarkable Consultation Request Notes Referral Date Referring Provider Referred Provider Not es 02/09/2025 Jose Felder [facility], Pulmonology eval and treat needs sleep study daytime somnolence
--- OUTSIDE RECORDS SUMMARY | 2025-02-16 04:45 | XMS_ITS ---
Author Organization Jose Felder III, MD Address [address] [place] [address] [address] [place] [address] Care Team Providers Care Supervisor [employer] Deliveries Name Role Phone Dr. Jose Felder III Primary Care Provider [phone] Allergies Allergen (clinical drug ingredient) Drug/Non Drug Allergy documented on EMR Reaction Allergy Type Onset Date Status No Known Drug Allergy Unknown Drug Allergy Active Seasonale Unknown Drug Allergy Active Results Component Value Reference Range Notes Lipid Panel Reviewed date:02/25/2025 01:03:25 PM Interpretation: Performing Lab:[facility], [address] [place] [id number] Notes/Report: Triglycerides 73 <150 mg/dL Desirable Triglyceride: less than 150 mg/dL Borderline High Triglyceride 150-199 mg/dL High Triglyceride: 200-499 mg/dL Very High Triglyceride: greater than or equal to 5OO mg/dL Cholesterol 166 <200 mg/dL Desirable Cholesterol: less than 200 mg/dL Borderline High Cholesterol: 200-239 mg/dL High Cholesterol: greater than 239 mg/dL LDL Cholesterol Calculated 109 <100 mg/dL Desirable LDL: less than 100 mg/dL Near Optimal/Above Optimal LDL: 110-129 mg/dL Borderline High LDL: 130-159 mg/dL High LDL: 160-189 mg/dL Very High LDL: greater than or equal to 190 mg/dL HDL Cholesterol 43 >40 mg/dL Desirable HDL: greater than 40 mg/dL Note: This HDL assay may give artificially low results in patients with liver disease. Amylase Reviewed date:02/25/2025 01:03:25 PM Interpretation: Performing Lab:[facility], [address] [place] [phone] Notes/Report: Amylase 57 28-100 U/L XR thoracic spine 3V Reviewed date:02/25/2025 01:03:25 PM Interpretation: Performing Lab: Notes/Report: [address] [address] XRay Report Signed Patient: Jem Quinteros MR#: [id number] 3 : 1945 Acct:[id number] Age/Sex: 79 / M ADM Date: 02/16/25 Loc: HO.LAB Attending Dr: Jose Felder MD Ordering Physician: Jose Felder MD Date of Service: 02/16/25 Procedure(s): XR thoracic spine 3V Accession Number(s): [id number] cc: Jose Felder MD EXAMINATION: XR THORACIC SPINE CLINICAL INFORMATION: THORACIC BACK PAIN COMPARISON: March 27, 2022. TECHNIQUE: AP lateral and swimmer's projection. FINDINGS: There is an anterior metallic plate and intervertebral disc spacer placement at C5 C7. Grade 1 anterolisthesis, C7-T1. Small marginal osteophyte formation at multiple levels and to a syndesmophyte formation in the mid thoracic spine. Multilevel endplate sclerosis. No acute cortical disruption. No lytic or blastic lesions. Vascular clips in the mediastinum. XR/XR thoracic spine 3V IMPRESSION: Multilevel spondylosis. Grade 1 anterolisthesis C7-T1. Status post ACDF C5 C7. Electronically signed by: Last Gunter MD 02/16/2025 10:56 AM EDT Dictated By: Last Miranda MD Signed By: <Electronically signed by Last Turner MD in OV> 02/16/25 1056 DD/ 1045 TD/TT: 02/16/25 1051 Tracer Bullet Section Supervisor: [address] [address] XRay Report Signed Patient: Jem Quinteros MR#: [id number] 3 : 1945 Acct:[id number] Age/Sex: 79 / M ADM Date: 02/16/25 Loc: HO.LAB Attending Dr: Jose Felder MD Ordering Physician: Jose Felder MD Date of Service: 02/16/25 Procedure(s): XR thoracic spine 3V Accession Number(s): [id number] cc: Jose Felder MD EXAMINATION: XR THORACIC SPINE CLINICAL INFORMATION: THORACIC BACK PAIN COMPARISON: March 27, 2022. TECHNIQUE: AP lateral and swimm er's projection. FINDINGS: There is an anterior metallic plate and intervertebral disc spacer placement at C5 C7. Grade 1 anterolisthe sis, C7-T1. Small marginal osteophyte formation at multiple levels and to a syndesmophyte format ion in the mid thoracic spine. Multilevel endplate sclerosis. No acute cortical disruption. No lytic or blastic lesions. Vascular clips in th e mediastinum. X R/XR thoracic spine 3V IMPRESSION: Multilevel spondylosis. Grade 1 anterolisthe sis C7-T1. Status post ACDF C5 C7. Electronically jes d by: Last Gunter MD 02/16/2025 10:56 AM EDT RP Dictated By: Last Jose MD Signed By: <Electronically signed by Last Turner MD in OV> 02/16/25 1056 DD/ 1045 TD/TT: 02/16/25 1051 Tracer Bullet Section Supervisor: REASON FOR VISIT Vertigo, Back pain, History of lung cancer, Hypertension, Protein S deficiency, Anticoagulated, History of DVT Medications Medication SIG (Take, Route, Frequency, Duration) Notes Start Date End Date Status Venlafaxine HCl 50 MG 1 tablet with food Orally Once a day 04/16/2023 Active SUMAtriptan Succinate 100 MG TAKE 1 TABLET BY MOUTH EVERY DAY AT THE ONSET OF MIGRAINE; MAY REPEATevery 22 HOURS IF when SYPTOMS PERSISTS; MAX OF 2 TS/ DAY Orally Once a day Active Simvastatin 40 MG 1 Tablet Orally Once a day Active Meclizine HCl 25 MG 1 or 2 tablets every 8 hours for vertigo Orally every 8 hours 02/09/2025 Active Warfarin Sodium 5 MG 1 1/2 tablet Orally Once a day Active Losartan Potassium 25 MG as directed Ora lly Once a day Active Social History Tobacco [...] Problem Status W/U Status Risk Notes Problem Thoracic back pain (087034260) Thoracic back pain (M54.6) Active confirmed The x-rays showed age related degenerative changes, but no specific cause of the back pain. An MRI is not possible because of the metal plates and his spine. A CT scan of his cervical and thoracic spine has been ordered to evaluate discs and the spinal canal. Vital Signs Temperature 97.9 degrees Fahrenheit 02/17/20 25 Blood pressure systolic 138 mm Hg 02/17/20 25 Blood pressure diastolic 82 mm Hg 025 Heart Rate 77 /min 02/16/2025 Height 71 in 02/16/2025 Weight 190 lbs 02/16/2025 BMI 26.5 kg/m2 02/16/2025 Encounters Encounter Location Date Provider Diagnosis Jose Felder III, MD [address] [place] [address] [place] [address] 02/16/2025 Jose Felder Thoracic back pain M54.6 ; Former smoker Z87.891 ; Lung cancer C34.90 ; Environmental allergies Z91.09 ; Overweight (BMI 25.0-29.9) E66.3 ; 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 ; Other depression F32.89 and Benign prostatic hyperplasia, unspecified whether lower urinary tract symptoms present N40.0 Assessments Encounter Date Diagnosis (ICD Code) Assessment Notes Treat ment Notes Treatment Clinical Notes 02/16/2025 Thoracic back pain (ICD-10 - M54.6) This is a new complaint. He notices it primarily playing golf. It is severe. X-rays have been ordered as well as a bone density test. 02/16/2025 Former smoker (ICD-10 - Z87.891) He is highly motivated not to smoke and has a plan to prevent relapse in times of stress or illness. 02/16/2025 Lung cancer (ICD-10 - C34.90) He remains in remission with no relapse. He is no longer smoking. 02/16/2025 Environmental allergies (ICD-10 - Z91.09) He has noted itching around his eyes and nasal congestion. He is using avfo-nhx-cikpcdl medication. I recommended fluticasone and loratadine. 02/16/2025 Overweight (BMI 25.0-29.9) (ICD-10 - E66.3) He has lost 5 pounds and is still overweight. We discussed diet and nutrition. We made a plan to lose weight at a rate of one half of a pound per week through a diet restricted in calories combined with physical activity. 02/16/2025 Protein S deficiency (ICD-10 - D68.59) He is doing well with his chronic anticoagulation. The protein S deficiency is no indication for lifelong therapy. 02/16/2025 Other depression (ICD-10 - F32.89) His medication was increased to 100 mg daily. A follow-up visit was arranged. He has no suicidal ideation and is beginning to experience improvement. 02/16/2025 Benign prostatic hyperplasia, unspecified whether lower urinary [...] MG 1 Tablet Orally Once a day Meclizine HCl 25 MG 1 or 2 tablets every 8 hours for vertigo Orally every 8 hours 02/09/2025 Warfarin Sodium 5 MG 1 1/2 tablet Orally Once a day Losartan Potassium 25 MG as directed Orally Once a day Pending Test Test Name Order Date BONE DENSITY DEXA 02/16/2025 Next Appt Details Follow Up: 1 Week, Reason: O V Provider Name:Jose Felder , 10/05/2025 02:30:00 PM, [address] [place] [address] , [address], [place], [address], Progress Notes * Jem QUINTEROSDOB:1945 ( 79 yo M)Acc No.[id number]:02/16/2025 Progress Notes Patient: Jem JI Provider: Annalise Felder MD :1945 A ge:79 Y S ex:Male Date:02/16/2025 [facility] Subjective: * Chief Complaints: * V ertigoBack painHistory of lung cancerHypertensionProtein S deficiencyAnticoagulatedHistory of DVT * HPI: C OVID-19 Screening: .He was here recently completing the vertigo and low back pain. He comes in today in followup. The low back pain is much improved. He now has a pain in his midthoracic spine which is exacerbated by physical activity especially swinging a golf club. It is present at rest but much more severe with activity. The vertigo has completely resolved. Questions H ave you had any new onset fever, chills, cough, congestion, sore throat, shortness of breath, muscle aches? N o * ROS: G eneral/Constitutional: pain L umbar spine and midthoracic spine. C hills d enies. F atigue a [...] have been noted. G enitourinary: Frequent urination o nce a night. M usculoskeletal: Muscle aches M idthoracic spine. P ainful joints d enies. S ciatica d enies. W eakness d enies. S kin: Itching d enies. R nik d enies. S kin lesion(s)?denies. N eurologic: Difficulty speaking d enies. D izziness d enies.?Headache d enies. L ow back pain t hat is chronic. P sychiatric: Depressed mood d enies. 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 * P ast Orders: Lab:Prothrombin Time Whole B ld POC * Collection Date 02/14/2025 01/31/2025 01/18/2025 12/28/2024 12/14/2024 11/30/2024 Collection Time 08:58 AM 08:47 AM 09:01 AM 08:26 AM 08:27 AM 08:29 AM Order Date 02/14/2025 01/31/2025 01/18/2025 12/28/2024 11/30/2024 Prothrombin Time Whole Bld POC 28.9 H (Ref Range: 11.1-13.5 sec) 22.4 H (Ref Range: 11.1-13.5 sec) 18.9 H (Ref Range: 11.1-13.5 sec) 32.7 H (Ref Range: 11.1-13.5 sec) 24.1 H (Ref Range: 11.1-13.5 sec) 21.1 H (Ref Range: 11.1-13.5 sec) * Lab:INR WHOLE BLOOD POC * Collection Date 02/14/2025 01/31/2025 01/18/2025 12/28/2024 12/14/2024 11/30/2024 Collection Time 08:58 AM 08:47 AM 09:01 AM 08:26 AM 08:27 AM 08:29 AM Order Date 02/14/2025 01/31/2025 01/18/2025 12/28/2024 11/30/2024 INR WHOLE BLOOD POC 2.4 H (Ref Range: 0.9-1.1) 1.9 H (Ref Range: 0.9-1.1) 1.6 H (Ref Range: 0.9-1.1) 2.7 H (Ref Range: 0.9-1.1) 2.0 H (Ref Range: 0.9-1.1) 1.8 H (Ref Range: 0.9-1.1) * Lab:Comprehensive [place]. Pane l Fast * Collection Date 02/08/2025 [...] 0.0-0.012 X10*3/uL) 0.000 (Ref Range: 0.0-0.012 X10*3/uL) ???Lab:PSA Free and Total (Order Date - 02/08/2025) (Collection Date & Time - 02/08/2025 06:19 AM)?ValueReference Range?Prostate Specific Ag Total1.5< OR = 4.0 - ng/mL?Percent Free Prostate Spec Ag33>25 - % (calc) ?Free Prostate Spec Ag0.5- ng/mL * Lab:Lipid Panel * Collection Date 02/08/2025 10/04/2024 [...] mg/dL) 43 (Ref Range: >40 mg/dL) * Examination: G eneral Examination: GENERAL APPEARANCE: p leasant, well nourished, well developed, in no acute distress, calm and relaxed, overweight, elderly man. HEAD: a traumatic, normocephalic. EYES: e talon, perrla, anicteric, conjugate. EARS: N ormal anatomy with hearing loss and hearing aids.? NOSE: s eptum intact. ORAL CAVITY: n ormal, unremarkable. NECK/THYROID: n o jugular venous distention, no carotid bruit, thyroid normal. LYMPH NODES: n o enlarged lymph nodes,spleen normal. SKIN: n o suspicious lesions, anicteric. HEART: n o clicks, gallops, murmurs, or rubs, regular rhythm, S1, S2 normal, no s3, or vascular bruits. LUNGS: , diminished breath sounds throughout, Healed scar base, right neck. BREASTS: no masses palpable bilaterally. ABDOMEN: b owel sounds normal, no ascites, no organomegaly, no mass, overweight. RECTAL EXAM: n ot examined. MUSCULOSKELETAL: e xtremities unremarkable, no clubbing, cyanosis or edema, No muscle spasm the long thoracic spine no pain to percussion of the thoracic spine pain is reproduced by bending and rotation of thoracic spine. PERIPHERAL PULSES: n ormal. NEUROLOGIC: a lert and oriented, cranial nerves 2-12 grossly intact, deep tendon reflexes 2+ symmetrical, motor strength normal upper and lower extremities, sensory exam intact. PSYCH: a lert, oriented. Assessment: * Assessment: 1. T horacic back pain - M54.6 (Primary) N otes :This is a new complaint. He notices it primarily playing golf. It is severe. X-rays have been ordered as well as a bone density test. 2 . F ormer smoker - Z87.891 N otes :He is highly motivated not to smoke and has a plan to prevent relapse in times of stress or illness. 3 . L sandra cancer - C34.90 N otes :He remains in remission with no relapse. He is no longer smoking. 4 . E nvironmental allergies - Z91.09 N otes :He has noted itching around his eyes and nasal congestion. He is using zfic-zdx-sjjoqaj medication. I recommended fluticasone and loratadine. 5 . O verweight (BMI 25.0-29.9) - E66.3 N otes :He has lost 5 pounds and is still overweight. We discussed diet and nutrition. We made a plan to lose weight at a rate of one half of a pound per week through a diet restricted in calories combined with physical activity. 6 . P rotein S deficiency - D68.59 N otes :He is doing well with his chronic anticoagulation. The protein S deficiency is no indication for lifelong therapy. 7 . O ther depression - F32.89 N otes :His medication was increased to 100 mg daily. A follow-up visit was arranged. He has no suicidal ideation and is beginning to experience improvement. 8 . B enign prostatic hyperplasia, unspecified whether lower urinary tract symptoms present - N40.0 N otes :He reports rising from sleep about twice a night to urinate. We have discussed some lifestyle modifications he could make to reduce this nocturia. Plan: * Treatment: 2. O thers Continue Losartan Potassium Tablet, 25 [...] 40 MG, 1 Tablet, Orally, Once a day; C ontinue Meclizine HCl Tablet, 25 MG, 1 or 2 tablets every 8 hours for vertigo, Orally, every 8 hours. * Imaging: * I maging: BONE DENSITY DEXA * Labs: * L ab: Lipid Panel (Collection Date & Time - 02/16/2025 10:39 AM) Value Reference Range T riglycerides 73 <150 - mg/dL * C holesterol 166 <200 - mg/dL * L DL Cholesterol Calculated 109 H <100 - mg/dL * H DL Cholesterol 43 >40 - mg/dL ?Lab: Amylase (Collection Date & Time - 02/16/2025 10:39 AM)* Value Reference Range A mylase 57 28-100 - U/L * Procedure Codes: * Preventive Medicine: Counseling: C are goal follow-up plan: Counseling for abnormal BMI given Y es Above Normal BMI Follow-up D ietary management education, guidance, and counseling S moking/Tobacco Use Patient counseled on the dangers of tobacco use and urged to quit. 0 02/15/2025 * Follow Up: 1 Week (Reason: OV) * Images: * Sign off status: Completed true * Provider: Annalise Feledr MD Date: 0 02/16/2025 Generated for Frandy mittal/Apple/eTransmitting on: 1 09/29/2024 08:03 AM EST History [...] EYES: eomi, perrla, anicte mike, conjugate EARS: Normal anatomy with hearing loss and hearing aids NOSE: septum intact NECK/THYROID: no jugular venous di stention, no carotid bruit, thyroid normal HEART: no clicks, gallops, murmurs, or rubs, regular rhythm, S1, S2 normal, no s3, or vascular bruits LUNGS: , diminished breath sounds throughout, Healed scar base, right neck ABDOMEN: bowel sounds normal, no ascites, no organomegaly, no mass, overweight NEUROLOGIC: alert and oriented, cranial nerves 2-12 grossly intact, deep tendon reflexes 2+ symmetrical, motor strength normal upper and lower extremities, sensory exam intact SKIN: no suspicious lesion s, anicteric PERIPHERAL PULSES: normal BREASTS: no masses palpable b ilaterally MUSCULOSKELETAL: extremities unremark able, no clubbing, cyanosis or edema, No muscle spasm the long thoracic spine no pain to percussion of the thoracic spine pain is reproduced by bending and rotation of thoracic spine LYMPH NODES: no enlarged lymph no cristi,spleen normal RECTAL EXAM: not examined PSYCH: alert, oriented ORAL CAVITY: normal, unremarkable
--- OUTSIDE RECORDS SUMMARY | 2025-02-24 04:00 | XMS_ITS ---
Author Organization Jose Felder III, MD Address [address] [place] [address] [place] [address] Care Team Providers Care Homemaking Rehabilitation Consultant Name Role Phone Dr. Jose Felder III Primary Care Provider Allergies Allergen (clinical drug ingredient) Drug/Non Drug Allergy documented on EMR Reaction Allergy Type Onset Date Status No Known Drug Allergy Unknown Drug Allergy Active Seasonale Unknown Drug Allergy Active REASON FOR VISIT Thoracic spine pain, History of lung cancer, History of CLL, Hypertension, Protein S deficiency, Anticoagulated Medications Medication SIG (Take, Route, Frequency, Duration) [...] vertigo Orally every 8 hours 02/09/2025 Active Venlafaxine HCl 50 MG 1 tablet with food Orally Once a day 04/16/2023 Active traZODone HCl 50 MG TAKE 1 TABLET BY BRIANNE DAILY Active Warfarin Sodium 5 MG 1 1/2 [...] Problem Status W/U Status Risk Notes Problem Neck pain (91551467) Cervical pain (neck) (M54.2) Active confirmed He has had neurosurgery in the past on his lower cervical spine leaving him with a metal plate and a . This was done by who is now at [facility]. 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 An MRI is not possible because of the metal plates and his spine. A CT scan of his cervical and thoracic spine has been ordered to evaluate discs and the spinal canal. 02/24/2025 Cervical pain (neck) (ICD-10 - M54.2) He has had neurosurgery in the past on his lower cervical spine leaving him with a metal plate and a . This was done by who is now at [facility]. 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 02/24/2025 Former smoker (ICD-1 0 - Z87.891) He is highly motivated not to smoke and has a plan to prevent relapse in times of stress or illness. 02/24/2025 Lung cancer (ICD-10 - C34.90) He remains in remission with no relapse. He is no longer smoking. 02/24/2025 Overweight (BMI 25.0-29.9) (ICD-10 - E66.3) He has lost 5 pounds and is still overweight. We discussed diet and nutrition. We made a plan to lose weight at a rate of one half of a pound per week through a diet restricted in calories combined with physical activity. 02/24/2025 Chronic nonintractable headache, unspecified headache type (ICD-10 - R51) His headaches are improved. They're less frequent. He will continue on current therapy. 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 The protein S deficiency is no indication for lifelong therapy. Plan Of Treatment Medication Medication Name Sig Start Date Stop Date Notes SUMAtriptan Succinate 100 MG TAKE 1 TABL ET BY MOUTH EVERY DAY AT THE ONSET OF MIGRAINE; MAY REPEATevery 22 HOURS IF when SYPTOMS PERSISTS; MAX OF 2 TS/ DAY Orally Once a day Simvastatin 40 MG 1 Tablet Orally Once a day Meclizine HCl 25 MG 1 or 2 tablets every 8 hours for vertigo Orally every 8 hours 02/09/2025 Venlafaxine HCl 50 MG 1 tablet with food Orally Once a day 04/16/2023 traZODone HCl 50 MG TAKE 1 TABLET BY MOUTH DAILY Warfarin Sodium 5 MG 1 1/2 tablet Orally Once a day Losartan Potassium 25 MG as directed Orally Once a day Pending Test Test Name Order Date CT THORACIC SPINE NO CONTRAST 02/24/2025 CT cervical spine wo con 02/24/2025 Next Appt Details Follow Up: 2 Weeks, Reason: ov Provider Name:Jose Felder , 10/05/2025 02:30:00 PM, [address] [place] [address] [place], [address], Progress Notes * Shashank QUINTEROS:1945 ( 79 yo M)Acc No.[id number]:02/24/2025 Progress Notes Patient: Jem JI Provider: Annalise Felder MD :1945 A ge:79 Y S ex:Male Date:02/24/2025 Address: [address], [place], [id number] Subjective: * Chief Complaints: * T horacic spine painHistory of lung cancerHistory of CLLHypertensionProtein S deficiencyAnticoagulated * HPI: C OVID-19 Screening: He recently began to complain of severe thoracic spine pain.? This was most pronounced when he was playing golf making it impossible for him to finish his round. The pain is mostly when he is active. He has had no trauma. Recent x-rays of the thoracic spine show A medical plate and in his cervical spineAs well as spondylolisthesis and osteophytes. The pain has worsened since his last visit. Further characterize this because of the pain I have ordered a CT scan. He will likely not be able to do an MRI because of the metal in place. Questions H ave you had any new onset fever, chills, cough, congestion, sore throat, shortness of breath, muscle aches? N o * ROS: G eneral/Constitutional: pain M id thoracic spine with rotation and weightbearing.?Chills d enies. F atigue a dmits. F [...] nce a night. 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 * Examination: G eneral Examination: GENERAL APPEARANCE: p leasant, well nourished, well developed, in no acute distress, calm and relaxed: overweight: elderly man. HEAD: a traumatic, normocephalic. EYES: e talon, perrla, anicteric, conjugate. EARS: n ormal. NOSE: s eptum intact. ORAL CAVITY: n ormal, unremarkable. NECK/THYROID: n o jugular venous distention, no carotid bruit, thyroid normal, Healed scar base of right neck. LYMPH NODES: n o enlarged lymph nodes,spleen normal. SKIN: n o suspicious lesions, anicteric. HEART: n o clicks, gallops, murmurs, or rubs, regular rhythm, S1, S2 normal, no s3, or vascular bruits. LUNGS: : diminished breath sounds throughout. BREASTS: no masses palpable bilaterally. ABDOMEN: b owel sounds normal, no ascites, no organomegaly, no mass. RECTAL EXAM: n ot examined. MUSCULOSKELETAL: e xtremities unremarkable, no clubbing, cyanosis or edema, No pain to percussion of the thoracic spine, pain is Reproduced by lateral flexion and rotation of the thoracic spine. PERIPHERAL PULSES: n ormal. NEUROLOGIC: a lert and oriented, cranial nerves 2-12 grossly intact, deep tendon reflexes 2+ symmetrical, motor strength normal upper and lower extremities, sensory exam intact, Mild memory defects. PSYCH: a lert, oriented. Assessment: * Assessment: 1. T horacic back pain - M54.6 (Primary) N otes :The x-rays showed age related degenerative changes, but no specific cause of the back pain. ?An MRI is not possible because of the metal plates and his spine. A CT scan of his cervical and thoracic spine has been ordered to evaluate discs and the spinal canal. 2 . C ervical pain (neck) - M54.2 N otes :He has had neurosurgery in the past on his lower cervical spine leaving him with a metal plate and a . This was done by Kenyatta Almodovar who is now at [facility]. 3 . C hronic lymphoid leukemia - C91.10 N otes :This diagnosis remains in remission since he finished his chemotherapy. 4 . F ormer smoker - Z87.891 N otes :He is highly motivated not to smoke and has a plan to prevent relapse in times of stress or illness. 5 . L sandra cancer - C34.90 N otes :He remains in remission with no relapse. He is no longer smoking. 6 . O verweight (BMI 25.0-29.9) - E66.3 N otes :He has lost 5 pounds and is still overweight. We discussed diet and nutrition. We made a plan to lose weight at a rate of one half of a pound per week through a diet restricted in calories combined with physical activity. 7 . C hronic nonintractable headache, unspecified headache type - R51 ? N otes :His headaches are improved. They're less frequent. He will continue on current therapy. 8 . P rotein S deficiency - D68.59 N otes :He is doing well with his chronic anticoagulation. The protein S deficiency is no indication for lifelong therapy. Plan: * Treatment: 2. O thers Continue traZODone HCl Tablet, 50 MG, TAKE 1 TABLET BY MOUTH DAILY; C ontinue Losartan Potassium Tablet, 25 MG, as directed, [...] hours for vertigo, Orally, every 8 hours. ? * Procedure Codes: * Preventive Medicine: Counseling: C are goal follow-up plan: Counseling for abnormal BMI given Y es Above Normal BMI Follow-up D ietary management education, guidance, and counseling S moking/Tobacco Use Patient counseled on the dangers of tobacco use and urged to quit. 0 02/24/2025 * Follow Up: 2 Weeks (Reason: ov) * Images: * Sign off status: Completed true * Provider: Annalise Felder MD Date: 0 02/24/2025 Generated for Frandy mittal/Apple/eTransmitting on: 1 09/29/2024 08:04 AM EST History and Physical Notes * HPI (History of Present Illness) Category Sub-Category Detail Notes COVID-19 Screening Questions Have you had any new onset fever, chills, cough, congestion, sore throat, shortness of breath, muscle aches?: No Examination Category Sub-Category Detail Notes General Examination GENERAL APPEARANCE: pleasant , well nourished, well developed, in no acute distress, calm and relaxed: overweight: elderly man HEAD: atraumatic, normocep halic EYES: eomi, perrla, anicte mike, conjugate EARS: normal NOSE: septum intact NECK/THYROID: no jugular venous di stention, no carotid bruit, thyroid normal, Healed scar base of right neck HEART: no clicks, gallops, murmurs, or rubs, regular rhythm, S1, S2 normal, no s3, or vascular bruits LUNGS: : diminished breath sounds throughout ABDOMEN: bowel sounds normal, no ascites, no organomegaly, no mass NEUROLOGIC: alert and oriented, cranial nerves 2-12 grossly intact, deep tendon reflexes 2+ symmetrical, motor strength normal upper and lower extremities, sensory exam intact, Mild memory defects SKIN: no suspicious lesion s, anicteric PERIPHERAL PULSES: normal BREASTS: no masses palpable b ilaterally MUSCULOSKELETAL: extremities unremark able, no clubbing, cyanosis or edema, No pain to percussion of the thoracic spine, pain is Reproduced by lateral flexion and rotation of the thoracic spine LYMPH NODES: no enlarged lymph no cristi,spleen normal RECTAL EXAM: not examined PSYCH: alert, oriented ORAL CAVITY: normal, unremarkable
--- OUTSIDE RECORDS SUMMARY | 2025-03-02 05:06 | XMS_ITS ---
Author Organization Jose Felder III, MD Address [address] [place] [address] [address] [place] [address] Care Team Providers Care Icu Specialist Name Role Phone Dr. Jose Felder III Primary Care Provider REASON FOR VISIT needs medical records Social History Sex Assigned At : Social History Observation Description Sex Assigned At Male Encounters Encounter Location Date Provider Diagnosis Jose Felder III, MD [address] [place] [address] [place] [address] 03/02/2025 Jose Felder Plan Of Treatment Next Appt Details Provider Name:Jose Felder , 10/05/2025 02:30:00 PM, [address] [place] [address] [place], [address], Progress Notes * Jem QUINTEROSDOB:1945 ( 79 yo M)Acc No.[id number]:03/02/2025 Patient: Jem JI :1945 A ge:79 Y S ex:Male Address:[place] [address] * true * Date: Generated for Printi ng/Faxing/eTransmitting on: 09/29/2024 08:04 AM EST
--- OUTSIDE RECORDS SUMMARY | 2025-03-10 04:30 | XMS_ITS ---
Author Organization Jose Felder III, MD Address [address] [place] [address] [place] [address] Care Team Providers Care Application Infrastructure Engineer Name Role Phone Dr. Jose Felder III Primary Care Provider Allergies Allergen (clinical drug ingredient) Drug/Non Drug Allergy documented on EMR Reaction Allergy Type Onset Date Status No Known Drug Allergy Unknown Drug Allergy Active Seasonale Unknown Drug Allergy Active REASON FOR VISIT Acute upper thoracic back. pain, Hypertension, Chronic headaches, protein S deficiency Medications Medication SIG (Take, Route, Frequency, Duration) Notes Start Date End Date Status Venlafaxine HCl 50 MG 1 tablet with food Orally Once a day 04/16/2023 Active Warfarin Sodium 5 MG 1 1/2 tablet Orally Once a day Active Simvastatin 40 MG 1 Tablet Orally Once a day Active SUMAtriptan Succinate 100 MG TAKE 1 TABLET BY MOUTH EVERY DAY AT THE ONSET OF MIGRAINE; MAY REPEATevery 22 HOURS IF when SYPTOMS PERSISTS; MAX OF 2 TS/ DAY Orally Once a day Active Cyclobenzaprine HCl 5 MG 1 tablet Orally every 8 hours if needed for 10 days 03/10/2025 03/30/2025 Active traZODone HCl 50 MG TAKE 1 TABLET BY BRIANNE TH DAILY Active Meclizine HCl 25 MG 1 or 2 tablets every 8 hours for vertigo Orally every 8 hours 02/09/2025 Active Losartan Potassium 25 MG as [...] has it been since you last smoked? Renettazain ter than 10 years Additional Findings: Tobacco non-user Ex-cigaret te smoker Problems Problem Type SNOMED Code ICD Code Onset Dates Problem Status W/U Status Risk Notes Problem 216498352 Sensorineural hearing loss (SNHL) of both ears (H90.3) Active confirmed compeensated with hearing aids. Problem 076667699 Diabetes mellitus type 2 in nonobese (E11.9) Active confirmed He was continued on current therapy. He will be back in the office in the near future to reevaluate this problem. Problem 99680822 Cervical radiculopathy (M54.12) Active confirmed Follows vigorous exercise, driving golf balls, and radiates into the side of the neck and the upper back. He is currently using heat and rest Tylenol ibuprofen and massage. If it does not clear quickly he will be given dexamethasone. If necessary MRI imaging of the neck to assess for a herniated disc will be done. Vital Signs Temperature 97.6 degrees Fahrenheit 03/10/20 25 Blood pressure systolic 125 mm Hg 03/10/20 25 Blood pressure diastolic 76 mm Hg 025 Heart Rate 80 /min 03/10/2025 Respiratory Rate 16 /min 03/10/2025 Height 71 in 03/10/2025 Weight 198 lbs 03/10/2025 BMI 27.61 kg/m2 03/10/2025 Encounters Encounter Location Date Provider Diagnosis Jose Felder III, MD [address] [place] [address] [place] [address] 03/10/2025 Jose Felder Former smoker Z87.89 1 ; Cervical radiculopathy M54.12 ; Hypertension I10 ; Lung cancer C34.90 ; 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 ; Overweight (BMI 25.0-29.9) E66.3 ; 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 ; DVT (deep venous thrombosis) I82.409 and Environmental allergies Z91.09 Assessments Encounter Date Diagnosis (ICD Code) Assessment Notes Treat ment Notes Treatment Clinical Notes 03/10/2025 Former smoker (ICD-10 - Z87.891) He is highly motivated not to smoke and has a plan to prevent relapse in times of stress or illness. 03/10/2025 Cervical radiculopathy (ICD-10 - M54.12) Follows vigorous exercise, driving golf balls, and radiates into the side of the neck and the upper back. He is currently using heat and rest Tylenol ibuprofen and massage. If it does not clear quickly he will be given dexamethasone. If necessary MRI imaging of the neck to assess for a herniated disc will be done. 03/10/2025 Hypertension (ICD-10 - I10) His blood pressure is stable today. 03/10/2025 Lung cancer (ICD-10 - C34.90) He remains in remission with no relapse. He is no longer smoking. 03/10/2025 Diabetes mellitus type 2 in nonobese (ICD-10 - E11.9) His diabetes is well controlled with current medication. No changes. Regimen was needed today. 03/10/2025 Overweight (BMI 25.0-29.9) (ICD-10 - E66.3) He has lost 5 pounds and is still overweight. We discussed diet and nutrition. We made a plan to lose weight at a rate of one half of a pound per week through a diet restricted in calories combined with physical activity. 03/10/2025 Protein S deficiency (ICD-10 - D68.59) He is doing well with his chronic anticoagulation. The protein S deficiency is no indication for lifelong therapy. 03/10/2025 DVT (deep venous thrombosis) (ICD-10 - I82.409) He has had no blood clots. 03/10/2025 Environmental allergies (ICD-10 - Z91.09) He has noted itching around his eyes and nasal congestion. He is using gcpp-rpn-zwumtto medication. I recommended fluticasone and loratadine. Plan Of Treatment Medication Medication Name Sig Start Date Stop Date Notes Venlafaxine HCl 50 MG 1 tablet with food Orally Once a day 04/16/2023 Warfarin Sodium 5 MG 1 1/2 tablet Orally Once a day Simvastatin 40 MG 1 Tablet Orally Once a day SUMAtriptan Succinate 100 MG TAKE 1 TABL ET BY MOUTH EVERY DAY AT THE ONSET OF MIGRAINE; MAY REPEATevery 22 HOURS IF when SYPTOMS PERSISTS; MAX OF 2 TS/ DAY Orally Once a day Cyclobenzaprine HCl 5 MG 1 tablet Orally every 8 hours if needed for 10 days 03/10/2025 03/30/2025 traZODone HCl 50 MG TAKE 1 TABLET BY MOUTH DAILY Meclizine HCl 25 MG 1 or 2 tablets every 8 hours for vertigo Orally every 8 hours 02/09/2025 Losartan Potassium 25 MG as directed Ora lly Once a day Next Appt Details Follow Up: 1 Week, Reason: T [facility] Provider Name:Jose Felder , 10/05/2025 02:30:00 PM, [address] [place] [address] , [facility] [address], [place], [address], Progress Notes * Jem QUINTEROSDOB:1945 ( 80 yo M)Acc No.[id number]:03/10/2025 Progress Notes Patient: Jem JI Provider: Annalise Felder MD :1945 A ge:80 Y S ex:Male Date:03/10/2025 Address: [facility] Subjective: * Chief Complaints: * A cute upper thoracic back. painHypertensionChronic headachesprotein S deficiency * HPI: C OVID-19 Screening: He returns to the office for ongoing management of the acute mid and upper thoracic back that he sustained while playing golf recently. Reports that for a week back pain had resolved so he went to play golf again and the day after was yesterday he had some severe limitation of range of motion of his neck with severe pain in the posterior musculature of the about 10 out of 10 that has not responded to Tylenol upon examination today range of motion was limited there was spasm of the posterior muscles. He was treated with cyclobenzaprine, he., Massage and rest. Follow-up visit was arranged. Questions H ave you had any new onset fever, chills, cough, congestion, sore throat, shortness of breath, muscle aches? N o * ROS: G eneral/Constitutional: pain P osterior neck muscles with range of motion of the head and neck. C hills d enies. F atigue a dmits. F ever d enies. ? E NT: Decreased hearing i n both [...] urination d enies. M usculoskeletal: Muscle aches P osterior neck. P ainful joints d enies. 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 He does not mention his diet, exercise habits, work environment, or living situation. * Medications: T akingtraZODone HCl 50 MG Tablet TAKE 1 TABLET BY MOUTH DAILY Losartan Potassium 25 MG Tablet as directed [...] List reviewed and reconciled with the patientTaking traZODone HCl 50 MG Tablet TAKE 1 TABLET BY MOUTH DAILY Taking Losartan Potassium 25 MG Tablet as [...] Verified] Objective: * Vitals: H t: 71, Wt:198, BMI:27.61, BP:125/76, HR:80, RR:16, Temp:97.6, Wt-k.81. * Examination: G eneral Examination: GENERAL APPEARANCE: p leasant, well nourished, well developed, in no acute distress, calm and relaxed: overweight: elderly man. HEAD: a traumatic, normocephalic. EYES: e talon, perrla, anicteric, conjugate. EARS: n ormal. NOSE: s eptum intact. ORAL CAVITY: n ormal, unremarkable. NECK/THYROID: n o jugular venous distention, no carotid bruit, thyroid normal, Significant decreased range of motion in all directions with muscle spasm side and posterior musculature. LYMPH NODES: n o enlarged lymph nodes,spleen normal. SKIN: n o suspicious lesions, anicteric. HEART: n o clicks, gallops, murmurs, or rubs, regular rhythm, S1, S2 normal, no s3, or vascular bruits. LUNGS: d iminished breath sounds throughout: good air movement: no wheezes, rales, rhonchi. BREASTS: no masses palpable bilaterally. ABDOMEN: b owel sounds normal, no ascites, no organomegaly, no mass: overweight. RECTAL EXAM: n ot examined. MUSCULOSKELETAL: e xtremities unremarkable, no clubbing, cyanosis or edema, Decreased range of motion with pain at. PERIPHERAL PULSES: n ormal. NEUROLOGIC: a lert and oriented, cranial nerves 2-12 grossly intactWith hearing loss, deep tendon reflexes 2+ symmetrical, motor strength normal upper and lower extremities, sensory exam intact. PSYCH: a lert, oriented. Assessment: * Assessment: 1. C ervical radiculopathy - M54.12 (Primary) N otes :Follows vigorous exercise, driving golf balls, and radiates into the side of the neck and the upper back. He is currently using heat and rest Tylenol ibuprofen and massage. If it does not clear quickly he will be given dexamethasone. If necessary MRI imaging of the neck to assess for a herniated disc will be done. 2 . F ormer smoker - Z87.891 N otes :He is highly motivated not to smoke and has a plan to prevent relapse in times of stress or illness. 3 . H ypertension - I10 N otes :His blood pressure is stable today. 4 . L sandra cancer - C34.90 N otes :He remains in remission with no relapse. He is no longer smoking. 5 . D iabetes mellitus type 2 in nonobese - E11.9 N otes :His diabetes is well controlled with current medication. No changes. Regimen was needed today. 6 . O verweight (BMI 25.0-29.9) - E66.3 N otes :He has lost 5 pounds and is still overweight. We discussed diet and nutrition. We made a plan to lose weight at a rate of one half of a pound per week through a diet restricted in calories combined with physical activity. 7 . P rotein S deficiency - D68.59 N otes :He is doing well with his chronic anticoagulation. The protein S deficiency is no indication for lifelong therapy. 8 . D VT (deep venous thrombosis) - I82.409 N otes :He has had no blood clots. 9 . E nvironmental allergies - Z91.09 N otes :He has noted itching around his eyes and nasal congestion. He is using hgpp-yga-ocykdaz medication. I recommended fluticasone and loratadine. Plan: * Treatment: * Procedure Codes: * Preventive Medicine: Counseling: C are goal follow-up plan: Counseling for abnormal BMI given Y es Above Normal BMI Follow-up D ietary management education, guidance, and counseling S moking/Tobacco Use Patient counseled on the dangers of tobacco use and urged to quit. 0 03/10/2025 DM Care Plan: P atient Lifestyle Goals P atient wants to be able to manage diabetes without too much effort. T reatment Goals B lood Sugars less than < 115, HbA1C < 7.0. B arriers n o barriers. S elf-Managment Goals W ork on weight loss, with a goal of losing 1 lb per week. * Follow Up: 1 Week (Reason: Telehealth) * Images: * Sign off status: Completed true * Provider: Annalise Felder MD Date: 0 03/10/2025 Generated for Frandy mittal/Apple/Kennethsmitting on: 09/29/2024 08:03 AM EST History and Physical [...] di stention, no carotid bruit, thyroid normal, Significant decreased range of motion in all directions with muscle spasm side and posterior musculature HEART: no clicks, gallops, murmurs, or rubs, regular rhythm, S1, S2 normal, no s3, or vascular bruits LUNGS: diminished breath so unds throughout: good air movement: no wheezes, rales, rhonchi ABDOMEN: bowel sounds normal, no ascites, no organomegaly, no mass: overweight NEUROLOGIC: alert and oriented, cranial nerves 2-12 grossly intactWith hearing loss, deep tendon reflexes 2+ symmetrical, motor strength normal upper and lower extremities, sensory exam intact SKIN: no suspicious lesion s, anicteric PERIPHERAL PULSES: normal BREASTS: no masses palpable b ilaterally MUSCULOSKELETAL: extremities unremark able, no clubbing, cyanosis or edema, Decreased range of motion with pain at LYMPH NODES: no enlarged lymph no cristi,spleen normal RECTAL EXAM: not examined PSYCH: alert, oriented ORAL CAVITY: normal, unremarkable
--- OUTSIDE RECORDS SUMMARY | 2025-03-15 04:00 | XMS_ITS ---
Author Organization Jose Felder III, MD Address [address] [place] [address] [place] [address] Care Team Providers Care Wafer Cutter Name Role Phone Dr. Jose Felder III [...] Provider Diagnosis Jose Felder III, MD [address] [place] [address] [place] [address] 03/15/2025 Jose Felder Hypertension I10 ; P [...] eyes and nasal congestion. He is using xarw-grp-hdbyaid medication. I recommended fluticasone and loratadine. 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 He is using jekd-ywu-yecxqej medication. I recommended fluticasone and loratadine. Plan: [...] 0 03/15/2025 Generated for Frandy mittal/Apple/eTtobinsmtano on: 09/29/2024 08:04 AM EST History and Physical Notes * HPI (History of Present Illness) Category Sub-Category Detail Notes Telehealth Location of [facility] ider rendering services:: {...} [address] [facility] [address] Location of patient:: address listed in demographics [...]
--- OUTSIDE RECORDS SUMMARY | 2025-05-18 05:30 | XMS_ITS ---
Author Organization Jose Felder III, MD Address [address] [place] [address] [place] [address] Care Team Providers Care Cardiovascular Invasive Specialist Name Role Phone Dr. Jose Felder [...] Provider Diagnosis Jose Felder III, MD [address] [place] [address] [place] [address] 05/18/2025 Jose Felder Lung cancer C34.90 ; [...] eyes and nasal congestion. He is using ifpa-xjv-rjwzmdw medication. I recommended fluticasone and loratadine. 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 He is using jsfx-exc-utbgmgk medication. I recommended fluticasone and loratadine. 6 [...] true * Provider: Annalise Felder MD Date: 1 Generated for Kaciei daxa/Apple/eTransmitting on: 09/29/2024 08:03 AM EST History and [...]
--- OUTSIDE RECORDS SUMMARY | 2025-07-22 04:19 | XMS_ITS ---
Author Organization Jose Felder III, MD Address [address] [place] [address] [address] [place] [address] Care Team Providers Care Cement Kiln Operator Name Role Phone Dr. Jose Felder III Primary Care Provider REASON FOR VISIT Message Social History Sex Assigned At : Social History Observation Description Sex Assigned At Male Encounters Encounter Location Date Provider Diagnosis Jose Felder III, MD [address] [place] [address] [place] [address] 07/22/2025 Jose Felder Plan Of Treatment Next Appt Details Provider Name:Jose Felder , 10/05/2025 02:30:00 PM, [address] [place] [address] [place], [address], Progress Notes * Jem QUINTEROSDOB:1945 ( 80 yo M)Acc No.[id number]:07/22/2025 Patient: Jem JI :1945 A ge:80 Y S ex:Male Address:[place] [address] * true * Date: Generated for Printi ng/Faxing/eTransmitting on: 1 09/29/2024 08:04 AM EST
--- OUTSIDE RECORDS SUMMARY | 2025-07-22 04:26 | XMS_ITS ---
Author Organization Jose Felder III, MD Address [address] [place] [place] [address] Care Team Providers Care Ecommerce Marketing Manager Name Role Phone Dr. Jose Felder III Primary Care Provider Medications Medication SIG (Take, Route, Frequency, Duration) Notes Start Date End Date Status Paxlovid (300/100) 20 x 150 MG & 10 x 100MG 3 tablets Orally Twice a day for 5 days gfr over 60 on 02-08-25, will hold simvastatin 07/22/2025 07/27/2025 Active Social History Sex Assigned At : Social History Observation Description Sex Assigned At Male Encounters Encounter Location Date Provider Diagnosis Jose Felder III, MD [address] [place] [address] [place] [address] 07/22/2025 Jose Felder Plan Of Treatment Medication Medication Name Sig Start Date Stop Date Notes Paxlovid (300/100) 20 x 150 MG & 10 x 100MG 3 tablets Orally Twice a day for 5 days 07/22/2025 07/27/2025 gfr over 60 on 5, will hold simvastatin Next Appt Details Provider Name:Jose Felder , 10/05/2025 02:30:00 PM, [address] [place] [address] [place], [address], Progress Notes * Shashank QUINTEROS:1945 ( 80 yo M)Acc No.[id number]:07/22/2025 Patient: Jem JI :1945 A ge:80 Y S ex:Male Address: [place] [address] * Refills Start Paxlovid (300/100) Tablet Therapy Pack, 20 x 150 MG & 10 x 100MG, Orally, 30, 3 tablets, Twice a day, 5 days, Refills=0 * true * Date: Generated for Frandy mittal/Apple/Kennethsmitting on: 09/29/2024 08:03 AM EST
--- OUTSIDE RECORDS SUMMARY | 2025-07-29 08:03 | XMS_ITS | Patient Health Record ---
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 Plan Of Treatment Pending Test Test Name Order Date X ray : Foot, left 3V 06/28/2013 [id number] TENDON SHEATH/LIGAMENT 0 09/08/2013,[id number] TENDON SHEATH/LIGAMENT 0 01/11/2014,[id number] TENDON SHEATH/LIGAMENT 0 10/12/2019 Insurance Providers Payer Name Payer Address Payer Phone Subscriber Number Group Number Insured Name Patient Relationship to Insured Coverage Start Date Coverage End Date Medicare National Govt [facility] [facility] [address] [place] [address] [id number] Jem Gallardo Self - patient is the insured [employer] [address] [place] [address] [id number] Jem Gallardo Self - patient is the [...]
--- OUTSIDE RECORDS SUMMARY | 2025-07-29 08:04 | XMS_ITS | Patient Health Record ---
Author Organization Jose Felder III, MD Address [address] [place] [address] Care Team Providers Care Bus Cleaner Name Role Phone Dr. Jose Felder III [...] Panel Reviewed date:02/25/2025 01:03:25 PM Interpretation: Performing Lab:[facility], [address] [place] [phone] Notes/Report: Triglycerides 73 <150 mg/dL Desirable Triglyceride: [...] Amylase Reviewed date:02/25/2025 01:03:25 PM Interpretation: Performing Lab:[facility], [address] [place] [phone] Notes/Report: Amylase 57 28-100 U/L XR thoracic spine 3V Reviewed date:02/25/2025 01:03:25 PM Interpretation: Performing Lab: Notes/Report: [address] [address] XRay Report Signed Patient: Jem Gallardo MR#: [id number] 3 : 1945 Acct:[id number] Age/Sex: 79 / M ADM Date: 02/16/25 Loc: HO.LAB Attending Dr: Jose Felder MD Ordering Physician: Jose Felder MD Date of Service: 02/16/25 Procedure(s): XR thoracic spine 3V Accession Number(s): [id number] cc: Jose Felder MD EXAMINATION: XR THORACIC [...] 02/16/25 1056 DD/ 1045 TD/TT: 02/16/25 1051 Security Systems Manager: [address] [address] XRay Report Signed Patient: Jem Gallardo MR#: [id number] 3 : 1945 Acct:[id number] Age/Sex: 79 / M ADM Date: 02/16/25 Loc: HO.LAB Attending Dr: Jose Felder MD Ordering Physician: Jose Felder MD Date of Service: 02/16/25 Procedure(s): XR thoracic spine 3V Accession Number(s): [id number] cc: Jose Felder MD EXAMINATION: XR THORACIC [...] 02/16/25 1056 DD/ 1045 TD/TT: 02/16/25 1051 Security Systems Manager: ALEXANDRA WHOLE BLOOD POC Reviewed date:08/06/2024 08:49:39 PM Interpretation: Performing Lab:[facility], [address] [place] [phone] Notes/Report: PT, INR - Anti [facility]ag Clinic 2.1 0.9-1.1 METER #: [id number] INTERNATIONAL NORMALIZED RATIO (INR) REFERENCE RANGES Reference [...] OC Reviewed date:08/06/2024 08:49:39 PM Interpretation: Performing Lab:[facility], [address] [place] [phone] Notes/Report: Prothrombin Time Whole Bld POC 25.3 11.1-13.5 sec INR WHOLE BLOOD POC Reviewed date:09/02/2024 06:23:24 AM Interpretation: Performing Lab:[facility], [address] [place] [phone] Notes/Report: PT, INR - Anti [facility]ag Clinic 1.6 0.9-1.1 METER #: [id number] INTERNATIONAL NORMALIZED RATIO (INR) REFERENCE RANGES Reference [...] OC Reviewed date:09/02/2024 06:23:24 AM Interpretation: Performing Lab:[facility], [address] [place] [phone] Notes/Report: Prothrombin Time Whole Bld POC 18.8 11.1-13.5 sec INR WHOLE BLOOD POC Reviewed date:09/05/2024 08:45:11 AM Interpretation: Performing Lab:[facility], [address] [place] [phone] Notes/Report: PT, INR - Anti [facility]ag Clinic 2.0 0.9-1.1 METER #: [id number] INTERNATIONAL NORMALIZED RATIO (INR) REFERENCE RANGES Reference [...] OC Reviewed date:09/05/2024 08:45:11 AM Interpretation: Performing Lab:[facility], [address] [place] [phone] Notes/Report: Prothrombin Time Whole Bld POC 24.2 11.1-13.5 sec INR WHOLE BLOOD POC Reviewed date:09/19/2024 09:54:44 AM Interpretation: Performing Lab:[facility], [address] [place] [phone] Notes/Report: PT, INR - Anti [facility]ag Clinic 2.6 0.9-1.1 METER #: [id number] INTERNATIONAL NORMALIZED RATIO (INR) REFERENCE RANGES Reference [...] OC Reviewed date:09/19/2024 09:54:44 AM Interpretation: Performing Lab:[facility], [address] [place] [phone] Notes/Report: Prothrombin Time Whole Bld POC 31.6 11.1-13.5 sec INR WHOLE BLOOD POC Reviewed date:09/24/2024 11:58:00 AM Interpretation: Performing Lab:[facility], [address] [place] [phone] Notes/Report: PT, INR - Anti [facility]ag Clinic 1.8 0.9-1.1 METER #: [id number] INTERNATIONAL NORMALIZED RATIO (INR) REFERENCE RANGES Reference [...] OC Reviewed date:09/24/2024 11:58:00 AM Interpretation: Performing Lab:[facility], [address] [place] [phone] Notes/Report: Prothrombin Time Whole Bld POC 21.8 11.1-13.5 sec Complete Blood Count Auto Di ff Reviewed date:10/04/2024 11:26:43 AM Interpretation: Performing Lab:[facility], [address] [place] [phone] Notes/Report: White Blood Count 10.5 4.8-10.8 X10*3/uL [...] NRBC Abs Auto 0.000 0.0-0.012 X10*3/uL Comprehensive [place]. Panel Fa Reviewed date:10/04/2024 11:26:43 AM Interpretation: Performing Lab:[facility], [address] [place] [phone] Notes/Report: Sodium 144 135-145 mmol/L Potassium 4.6 [...] Panel Reviewed date:10/04/2024 11:26:43 AM Interpretation: Performing Lab:[facility], [address] [place] [phone] Notes/Report: Triglycerides 81 <150 mg/dL Desirable Triglyceride: [...] POC Reviewed date:10/04/2024 11:26:43 AM Interpretation: Performing Lab:[facility], [address] [place] [phone] Notes/Report: PT, INR - Anti Coag Clinic 2.0 0.9-1.1 METER #: [id number] INTERNATIONAL NORMALIZED RATIO (INR) REFERENCE RANGES Reference [...] OC Reviewed date:10/04/2024 11:26:43 AM Interpretation: Performing Lab:[facility], [address] [place] [phone] Notes/Report: Prothrombin Time Whole Bld POC 23.8 11.1-13.5 sec INR WHOLE BLOOD POC Reviewed date:10/19/2024 12:18:43 PM Interpretation: Performing Lab:[facility], [address] [place] [phone] Notes/Report: PT, INR - [facility]ag Clinic 1.7 0.9-1.1 METER #: [id number] INTERNATIONAL NORMALIZED RATIO (INR) REFERENCE RANGES Reference [...] OC Reviewed date:10/19/2024 12:18:43 PM Interpretation: Performing Lab:[facility], [address] [place] [phone] Notes/Report: Prothrombin Time Whole Bld POC 20.9 11.1-13.5 sec INR WHOLE BLOOD POC Reviewed date:10/30/2024 07:56:40 AM Interpretation: Performing Lab:[facility], [address] [place] [phone] Notes/Report: PT, INR - [facility]ag [facility] 2.5 0.9-1.1 METER #: [id number] INTERNATIONAL NORMALIZED RATIO (INR) REFERENCE RANGES Reference [...] OC Reviewed date:10/30/2024 07:56:40 AM Interpretation: Performing Lab:[facility], [address] [place] [phone] Notes/Report: Prothrombin Time Whole Bld POC 30.4 11.1-13.5 sec INR WHOLE BLOOD POC Reviewed date:11/12/2024 08:31:52 PM Interpretation: Performing Lab:[facility], [address] [place] [phone] Notes/Report: PT, INR - [facility]ag Clinic 2.0 0.9-1.1 METER #: [id number] INTERNATIONAL NORMALIZED RATIO (INR) REFERENCE RANGES Reference [...] OC Reviewed date:11/12/2024 08:31:52 PM Interpretation: Performing Lab:[facility], [address] [place] [phone] Notes/Report: Prothrombin Time Whole Bld POC 24.5 11.1-13.5 sec INR WHOLE BLOOD POC Reviewed date:12/01/2024 07:02:07 AM Interpretation: Performing Lab:[facility], [address] [place] [phone] Notes/Report: PT, INR - Anti [facility]ag Clinic 1.8 0.9-1.1 METER #: [id number] INTERNATIONAL NORMALIZED RATIO (INR) REFERENCE RANGES Reference [...] OC Reviewed date:12/01/2024 07:02:07 AM Interpretation: Performing Lab:[facility], [address] [place] [phone] Notes/Report: Prothrombin Time Whole Bld POC 21.1 11.1-13.5 sec INR WHOLE BLOOD POC Reviewed date:12/14/2024 10:11:09 AM Interpretation: Performing Lab:[facility], [address] [place] [phone] Notes/Report: PT, INR - Anti [facility]ag Clinic 2.0 0.9-1.1 METER #: [id number] INTERNATIONAL NORMALIZED RATIO (INR) REFERENCE RANGES Reference [...] OC Reviewed date:12/14/2024 10:11:09 AM Interpretation: Performing Lab:[facility], [address] [place] [phone] Notes/Report: Prothrombin Time Whole Bld POC 24.1 11.1-13.5 sec INR WHOLE BLOOD POC Reviewed date:12/28/2024 09:33:50 AM Interpretation: Performing Lab:[facility], [address] [place] [phone] Notes/Report: PT, INR - Anti Coag Clinic 2.7 0.9-1.1 METER #: [id number] INTERNATIONAL NORMALIZED RATIO (INR) REFERENCE RANGES Reference [...] OC Reviewed date:12/28/2024 09:33:50 AM Interpretation: Performing Lab:[facility], [address] [place] [phone] Notes/Report: Prothrombin Time Whole Bld POC 32.7 11.1-13.5 sec INR WHOLE BLOOD POC Reviewed date:01/19/2025 01:54:32 PM Interpretation: Performing Lab:[facility], [address] [place] [phone] Notes/Report: PT, INR - Anti Coag Clinic 1.6 0.9-1.1 METER #: [id number] INTERNATIONAL NORMALIZED RATIO (INR) REFERENCE RANGES Reference [...] OC Reviewed date:01/19/2025 01:54:32 PM Interpretation: Performing Lab:[facility], [address] [place] [phone] Notes/Report: Prothrombin Time Whole Bld POC 18.9 11.1-13.5 sec INR WHOLE BLOOD POC Reviewed date:02/02/2025 03:50:50 PM Interpretation: Performing Lab:[facility], [address] [place] [phone] Notes/Report: PT, INR - Anti Coag Clinic 1.9 0.9-1.1 METER #: [id number] INTERNATIONAL NORMALIZED RATIO (INR) REFERENCE RANGES Reference [...] OC Reviewed date:02/02/2025 03:50:50 PM Interpretation: Performing Lab:[facility], [address] [place] [phone] Notes/Report: Prothrombin Time Whole Bld POC 22.4 11.1-13.5 sec Complete Blood Count Auto Di ff Reviewed date:02/09/2025 01:28:09 PM Interpretation: Performing Lab:[facility], [address] [place] [phone] Notes/Report: White Blood Count 10.3 4.8-10.8 X10*3/uL [...] NRBC Abs Auto 0.000 0.0-0.012 X10*3/uL Comprehensive [place]. Panel Fa st Reviewed date:02/09/2025 01:28:09 PM Interpretation: Performing Lab:[facility], [address] [place] [phone] Notes/Report: Sodium 142 135-145 mmol/L Potassium 3.8 [...] Panel Reviewed date:02/09/2025 01:28:09 PM Interpretation: Performing Lab:[facility], [address] [place] [phone] Notes/Report: Triglycerides 122 <150 mg/dL Desirable Triglyceride: [...] Total Reviewed date:02/09/2025 01:28:09 PM Interpretation: Performing Lab:[facility], [address] [place] [phone] Notes/Report: Prostate Specific Ag Total 1.5 < [...] 30 93 9 (3)Catalona et al.:DEENA 277: 7604-3784 (1996) (4)Catalona et al.:DEENA 279: 5686-7560 (1997) (x)These estimates vary with age, ethnicity, [...] mind. PSA was performed using the Justin Cardale Immunoassay method. Values obtained from different assay methods cannot be used interchangeably. PSA levels, regardless of value, should not be interpreted as absolute evidence of the presence or absence of disease. THIS TEST WAS PERFORMED AT: [facility] [address] [place] [phone] DEJAN CONWAY MD Free Prostate Spec Ag 0.5 INR WHOLE BLOOD POC Reviewed date:02/15/2025 08:16:17 PM Interpretation: Performing Lab:[address] [phone] Notes/Report: PT, INR - Anti Coag Clinic 2.4 0.9-1.1 METER #: [id number] INTERNATIONAL NORMALIZED RATIO (INR) REFERENCE RANGES Reference [...] OC Reviewed date:02/15/2025 08:16:17 PM Interpretation: Performing Lab:[facility], [address] [place] [phone] Notes/Report: Prothrombin Time Whole Bld POC 28.9 11.1-13.5 sec INR WHOLE BLOOD POC Reviewed date:02/25/2025 01:03:25 PM Interpretation: Performing Lab:[address] [phone] Notes/Report: PT, INR - Anti Coag Clinic 2.9 0.9-1.1 METER #: [id number] INTERNATIONAL NORMALIZED RATIO (INR) REFERENCE RANGES Reference [...] OC Reviewed date:02/25/2025 01:03:25 PM Interpretation: Performing Lab:[facility], [address] [place] [phone] Notes/Report: Prothrombin Time Whole Bld POC 35.4 11.1-13.[address] thoracic spine wo con Reviewed date:03/13/2025 07:03:37 AM Interpretation: Performing Lab: Notes/Report: [address] [address] [address] Scan Report Signed Patient: Jem Gallardo MR#: [id number] 3 : 1945 Acct:[id number] Age/Sex: 79 / M ADM Date: 03/05/25 Loc: HO.CT Attending Dr: Jose Felder MD Ordering Physician: Jose Felder MD Date of Service: 03/05/25 Procedure(s): CT thoracic spine wo IV con Accession Number(s): [id number] cc: Jose Felder MD Report Number: [id number]: Total DLP = 629.00 mGy-cm CLINICAL HISTORY: [...] in OV> 03/07/251914 DD/ 13 TD/TT: 03/07/251913 Security Systems Manager: [address] [address] [address] Scan Report Signed Patient: Jem Gallardo MR#: [id number] 3 : 1945 Acct:[id number] Age/Sex: 79 / M ADM Date: 03/05/25 Loc: HO.CT Attending Dr: Jose Felder MD Ordering Physician: Jose Felder MD Date of Service: 03/05/25 Procedure(s): CT thoracic spine wo IV con Accession Number(s): [id number] cc: Jose Felder MD Report Number: [id number]: Total DLP = 629.00 mGy-cm CLINICAL HISTORY: [...] in OV> 03/07/251914 DD/ 13 TD/TT: 03/07/251913 Security Systems Manager: CT cervical spine wo con Reviewed date:03/13/2025 07:03:37 AM Interpretation: Performing Lab: Notes/Report: [address] [address] [address] Scan Report Signed Patient: Jem Gallardo MR#: [id number] 3 : 1945 Acct:[id number] Age/Sex: 79 / M ADM Date: 03/05/25 Loc: HO.CT Attending Dr: Jose Felder MD Ordering Physician: Jose Felder MD Date of Service: 03/05/25 Procedure(s): CT cervical spine wo IV con Accession Number(s): [id number] cc: Jose Felder MD Report Number: [id number]: Total DLP = 990.70 mGy-cm CLINICAL HISTORY: [...] in OV> 03/07/251856 DD/ 55 TD/TT: 03/07/251855 Security Systems Manager: [place] [address] [address] Scan Report Signed Patient: Jem Gallardo MR#: [id number] 3 : 1945 Acct:[id number] Age/Sex: 79 / M ADM Date: 03/05/25 Loc: HO.CT Attending Dr: Jose Felder MD Ordering Physician: Jose Felder MD Date of Service: 03/05/25 Procedure(s): CT cervical spine wo IV con Accession Number(s): [id number] cc: Jose Felder MD Report Number: [id number]: Total DLP = 990.70 mGy-cm CLINICAL HISTORY: [...] in OV> 03/07/251856 DD/ 55 TD/TT: 03/07/251855 Security Systems Manager: INR WHOLE BLOOD POC Reviewed date:03/13/2025 07:03:37 AM Interpretation: Performing Lab:[facility], [address] [place] [phone] Notes/Report: PT, INR - Anti Coag Clinic 1.8 0.9-1.1 METER #: [id number] INTERNATIONAL NORMALIZED RATIO (INR) REFERENCE RANGES Reference [...] OC Reviewed date:03/13/2025 07:03:37 AM Interpretation: Performing Lab:[facility], [address] [place] [phone] Notes/Report: Prothrombin Time Whole Bld POC 21.6 11.1-13.5 sec INR WHOLE BLOOD POC Reviewed date:03/27/2025 05:06:06 AM Interpretation: Performing Lab:[facility], [address] [place] [phone] Notes/Report: PT, INR - Anti Coag Clinic 2.1 0.9-1.1 METER #: [id number] INTERNATIONAL NORMALIZED RATIO (INR) REFERENCE RANGES Reference [...] OC Reviewed date:03/27/2025 05:06:06 AM Interpretation: Performing Lab:[facility], [address] [place] [phone] Notes/Report: Prothrombin Time Whole Bld POC 24.9 11.1-13.5 sec INR WHOLE BLOOD POC Reviewed date:04/16/2025 07:53:07 PM Interpretation: Performing Lab:[facility], [address] [place] [phone] Notes/Report: PT, INR - Anti Coag Clinic 2.8 0.9-1.1 METER #: [id number] INTERNATIONAL NORMALIZED RATIO (INR) REFERENCE RANGES Reference [...] OC Reviewed date:04/16/2025 07:53:07 PM Interpretation: Performing Lab:[facility], [address] [place] [phone] Notes/Report: Prothrombin Time Whole Bld POC 33.5 11.1-13.5 sec INR WHOLE BLOOD POC Reviewed date:05/06/2025 11:18:32 AM Interpretation: Performing Lab:[facility], [address] [place] [phone] Notes/Report: PT, INR - Anti Coag Clinic 3.3 0.9-1.1 METER #: [id number] INTERNATIONAL NORMALIZED RATIO (INR) REFERENCE RANGES Reference [...] OC Reviewed date:05/06/2025 11:18:32 AM Interpretation: Performing Lab:[facility], [address] [place] [phone] Notes/Report: Prothrombin Time Whole Bld POC 39.1 11.1-13.5 sec XR DEXA axial skeleton Reviewed date:05/16/2025 08:52:07 AM Interpretation: Performing Lab: Notes/Report: [facility] [address] [place], [place] [address] Mammography Report Signed Patient: Jem Gallardo MR#: [id number] 3 : 1945 Acct:[id number] Age/Sex: 80 / M ADM Date: 05/12/25 Loc: HO.MAMMO Attending Dr: Jose Felder MD Ordering Physician: Jose Felder MD Results: Date of Service: 05/12/25 Follow Up: Procedure(s): XR DEXA axial skeleton Accession Number(s): [id number] cc: Jose Felder MD Reason For Exam: Q78.2 OSTEOPETROSIS EXAMINATION: DXA BONE DENSITY AXIAL HISTORY: Q78.2 OSTEOPETROSIS TECHNIQUE: [place]umi Dual energy absorptiometry (DEXA) of the lumbar [...] of the [employer] [place] for Metabolic Bone Disease, a World Health Organization (WHO) Collaborating Center. Electronically signed by: Jose Charles MD 05/12/2025 11:20 AM EDT RP Dictated By: Jose Charles MD Signed By: <Electronically signed by Jose Charles MD in OV> 05/12/25 1120 DD/ 1024 TD/TT: 05/12/25 1030 Security Systems Manager: [facility] [address] [place] [address] Mammography Report Signed Patient: Jem Gallardo MR#: [id number] 3 : 1945 Acct:[id number] Age/Sex: 80 / M ADM Date: 05/12/25 Loc: HO.MAMMO Attending Dr: Jose Felder MD Ordering Physician: Jose Felder MD Results: Date of Service: 05/12/25 Follow Up: Procedure(s): XR DEX A axial skeleton Accession Number(s): [id number] cc: Jose Felder MD Reason For Exam: Q78 .2 OSTEOPETROSIS EXAMINATION: DXA BON E DENSITY AXIAL HISTORY: Q78.2 OSTEOPETROSIS TECHNIQUE: Shibumi Dual energy absorptiometry (DEXA) of the lumbar [...] is a trademark of the [employer] [place] for Metabolic Bone Disease, a World Health Organization (WHO) Collaborating Center. Electronically jes d by: Jose Charles MD 05/12/2025 11:20 AM EDT RP Dictated By: Jose Charles MD Signed By: <Electronically signed by Jose Charles MD in OV> 05/12/25 1120 DD/ 1024 TD/TT: 05/12/25 1030 Security Systems Manager: INR WHOLE BLOOD POC Reviewed date:05/29/2025 06:22:53 AM Interpretation: Performing Lab:[facility], [address] [place] [phone] Notes/Report: PT, INR - Anti Coag Clinic 2.4 0.9-1.1 METER #: [id number] INTERNATIONAL NORMALIZED RATIO (INR) REFERENCE RANGES Reference [...] OC Reviewed date:05/29/2025 06:22:53 AM Interpretation: Performing Lab:[facility], [address] [place] [phone] Notes/Report: Prothrombin Time Whole Bld POC 29.0 11.1-13.5 sec INR WHOLE BLOOD POC Reviewed date:06/26/2025 07:06:45 AM Interpretation: Performing Lab:[facility], [address] [place] [phone] Notes/Report: PT, INR - Anti Coag Clinic 2.8 0.9-1.1 METER #: [id number] INTERNATIONAL NORMALIZED RATIO (INR) REFERENCE RANGES Reference [...] Prothrombin Time Whole Bld P OC Reviewed date:06/26/2025 07:06:46 AM Interpretation: Performing Lab:[facility], [address] [place] [phone] Notes/Report: Prothrombin Time Whole Bld POC 34.1 11.1-13.5 sec Reason For Referral Reason Evaluate and Treat New Lesion of Nose Diagnosis 1 Lesion of nose (J34. 89) Referral Organization Jose Felder III, MD Referring Provider First Name Jose Referring Provider Last Name Bradford Referring Provider Speciality Internal M edicine Referred Provider [facility] [place] [facility] Referred Provider Specialty Dermatology General Notes Tamie [...] Provider Speciality Internal M edicine Referred Provider [facility], Orthopedic Surgeons Referred Provider Specialty Orthopedic S adriánery General Notes Tamie You 01/31/2025 01:54:41 PM > Referral and progress note faxed. Referral Priority Urgent Referral Appointment Date 05/19/2025 Reason eval and treat needs sleep study daytime somnolence Diagnosis 1 Daytime somnolence ( R40.0) Referral Organization Jose Felder III, MD Referring Provider First Name Jose Referring Provider Last Name Bradford Referring Provider Speciality Internal M edicine Referred Provider [facility], Pulmonology Referred Provider Specialty Pulmonary [facility] Notes Bhavana Salinas CMA 02/10 09:06:58 AM > ref/demo/progress note/labs faxed to [facility] [place] pulmonary dept Referral Priority Routine Referral Appointment [...] Administered COVID 19 Moderna Unknown 10/05/2020 Administered [place] Pfizer-BioNTech Unknown 05/31/2023 Administer ed Social History [...] Problem Status W/U Status Risk Notes Problem 4079046 Former smoker (Z87.891) Active confirmed He is highly motivated not to smoke and has a plan to prevent relapse in times of stress or illness. Problem 094368255 Overweight (BMI 25.0-29.9) (E66.3) Active confirmed His body mass index is 27. We discussed diet and nutrition. We reviewed his weight loss strategy. Problem 920338558 Overweight (E66.3) Active confirmed He has gained 7 pounds. His body mass index is 27. We discussed his weight loss strategy. I recommended aggressive weight loss through regular physical activity and diet restricted in calories. Problem 69734148 Hypertension (I10) Active confirmed His blood pressure has been controlled and no change in his regimen was made today. Problem 60304877 Other chronic pain (G89.29) Active confirmed Problem 157632153 Solitary pulmonary nodule (R91.1) Active confirmed Problem 78900748 Cervical radiculopathy (M54.12) Active confirmed Follows vigorous exercise, driving golf balls, and radiates into the side of the neck and the upper back. He is currently using heat and rest Tylenol ibuprofen and massage. If it does not clear quickly he will be given dexamethasone. If necessary MRI imaging of the neck to assess for a herniated disc will be done. Problem 426602350 Environmental allergies (Z91.09) Active confirmed He has noted itching around his eyes and nasal congestion. He is using dntu-ddf-cokos er medication. I recommended fluticasone and loratadine. Problem 628752278 Diabetes mellitus type 2 in nonobese (E11.9) Active confirmed He was continued on current therapy. He will be back in the office in the near future to reevaluate this problem. 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 Problem 290804362 DVT (deep venous thrombosis) (I82.409) Active confirmed He has had no blood clots. Problem 586527616 Lung cancer (C34.90) Active confirmed He remains in remission with no relapse. He is no longer smoking. Problem Thoracic back pain (166831325) Thoracic back pain (M54.6) Active confirmed The x-rays showed age related degenerative changes, but no specific cause of the back pain. An MRI is not possible because of the metal plates and his spine. A CT scan of his cervical and thoracic spine has been ordered to evaluate discs and the spinal canal. Problem 5062545 Protein S deficiency (D68.59) Active confirmed He is doing well with his chronic anticoagulatio n. The protein S deficiency is no indication for lifelong therapy. Problem Neck pain (45758612) Cervical pain (neck) (M54.2) Active confirmed He has had neurosurgery in the past on his lower cervical spine leaving him with a metal plate and a . This was done by who is now at [facility]. Problem 65873955 Other depression (F32.89) Active confirmed His medication was increased to 100 mg daily. A follow-up visit was arranged. He has no suicidal ideation and is beginning to experience improvement. Problem 937479033 Benign prostatic hyperplasia, unspecified whether lower urinary tract symptoms present (N40.0) Active confirmed He reports rising from sleep about twice a night to urinate. We have discussed some lifestyle modifications he could make to reduce this nocturia. Problem 310888756 Sensorineural hearing loss (SNHL) of both ears (H90.3) Active confirmed compeensated with hearing aids. Problem [id number] Chronic nonintractable headache, unspecified headache type (R51) Active confirmed His headaches are improved. They're less frequent. He will continue on current therapy. Problem Disease caused by Severe acute respiratory syndrome coronavirus 2 (disorder) (252979120) COVID-19 virus infection (U07.1) Active confirmed He has recovered from his collins virus infection with no lung symptoms. Problem [id number] Skin lesion of face (L98.9) Active confirmed The area on his nose has the appearance of an actinic keratosis. It has only recently appeared. I have made a referral to dermatology for definitive diagnosis and treatment. Problem [id number] Recurrent low back pain (M54.50) Active confirmed [...] Provider Diagnosis Jose Felder III, MD [address] [place] [address] [address] [place] [address] 08/23/2024 Jose Felder COVID-19 virus infec tion U07.1 ; 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 ; Former smoker Z87.891 ; Lung cancer C34.90 ; Environmental allergies Z91.09 and Overweight E66.3 Jose Felder III, MD [address] [place] [address] [address] [place] [address] 10/04/2024 Jose Felder COVID-19 virus infec tion [...] and Overweight E66.3 Jose Felder III, MD [address] [place] [address] [place] [address] 10/15/2024 Jose Felder Skin lesion of face L98.9 ; 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 ; Former smoker Z87.891 ; Lung cancer C34.90 ; Environmental allergies Z91.09 ; Hypertension I10 ; DVT (deep venous thrombosis) I82.409 ; Overweight (BMI 25.0-29.9) E66.3 ; Chronic nonintractable headache, unspecified headache type R51 ; 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 and Other depression F32.89 Jose Felder III, MD [address] [place] [address] [place] [address] 01/27/2025 Jose Felder 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 ; Recurrent low back pain M54.50 ; Former smoker Z87.891 ; Lung cancer C34.90 ; Environmental allergies Z91.09 ; Chronic nonintractable headache, unspecified headache type R51 ; Overweight E66.3 and Benign prostatic hyperplasia, unspecified whether lower urinary tract symptoms present N40.0 Jose Felder III, MD [address] [place] [address] [place] [address] 02/09/2025 Jose Felder Suspected sleep apne a R29.818 ; Labyrinthitis of both ears 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89 and Benign prostatic hyperplasia, unspecified whether lower urinary tract symptoms present N40.0 Jose Felder III, MD [address] [place] [address] [place] [address] 02/24/2025 Jose Felder Thoracic back pain M 54.6 ; Cervical pain (neck) M54.2 ; 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 ; Former smoker Z87.891 ; Lung cancer C34.90 ; Overweight (BMI 25.0-29.9) E66.3 ; Chronic nonintractable headache, unspecified headache type R51 and 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 Jose Felder III, MD [address] [place] [address] [place] [address] 03/10/2025 Jose Felder Former smoker Z87.89 1 ; Cervical radiculopathy M54.12 ; Hypertension I10 ; Lung cancer C34.90 ; 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 ; Overweight (BMI 25.0-29.9) E66.3 ; 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 ; DVT (deep venous thrombosis) I82.409 and Environmental allergies Z91.09 Jose Felder III, MD [address] [place] [address] [place] [address] 03/15/2025 Jose Felder Hypertension I10 ; P ain in thoracic spine M54.6 ; Overweight (BMI 25.0-29.9) E66.3 ; 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 ; Former smoker Z87.891 ; Lung cancer C34.90 and Environmental allergies Z91.09 Jose Felder III, MD [address] [place] [address] [place] [address] 05/18/2025 Jose Felder Lung cancer C34.90 ; [...] Cervical radiculopathy M54.12 Jose Felder III, MD [address] [place] [address] [place] [address] 08/23/2024 Jose Felder III, MD [address] [place] [address] [place] [address] 08/31/2024 Jose Felder COVID-19 virus infec tion U07.1 Jose Felder III, MD [address] [place] [address] [place] [address] 08/31/2024 Jose Felder COVID-19 virus infec tion U07.1 Jose Felder III, MD [address] [place] [address] [place] [address] 09/17/2024 Jose Felder III, MD [address] [place] [address] [place] [address] 02/08/2025 Jose Felder III, MD [address] [place] [address] [place] [address] 03/02/2025 Jose Felder III, MD [address] [place] [address] [place] [address] 07/22/2025 Jose Felder III, MD [address] [place] [address] [place] [address] 07/22/2025 Jose Felder Assessments Encounter Date Diagnosis (ICD [...] was done by who is now at [facility]. 03/10/2025 Former smoker (ICD-1 0 - [...] eyes and nasal congestion. He is using mcrg-eri-orcazbm medication. I recommended fluticasone and loratadine. 02/24/2025 [...] eyes and nasal congestion. He is using ydkc-kdx-hzsiusz medication. I recommended fluticasone and loratadine. 10/04/2024 Former smoker (ICD-1 0 - Z87.891) He is highly motivated not to smoke and has a plan to prevent relapse in times of stress or illness. 10/15/2024 Environmental allergies (ICD-10 - Z91.09) He has noted itching around his eyes and nasal congestion. He is using oeuk-uha-xijbspo medication. I recommended fluticasone and loratadine. 01/27/2025 Environmental allergies (ICD-10 - Z91.09) He has noted itching around his eyes and nasal congestion. He is using xqrw-mpv-psztjwo medication. I recommended fluticasone and loratadine. 02/09/2025 [...] eyes and nasal congestion. He is using avjl-wsw-uxumaex medication. I recommended fluticasone and loratadine. 08/23/2024 [...] eyes and nasal congestion. He is using tqfn-dpk-ccmyrtu medication. I recommended fluticasone and loratadine. 10/15/2024 [...] eyes and nasal congestion. He is using xnjc-clk-hbtrrct medication. I recommended fluticasone and loratadine. 05/18/2025 [...] eyes and nasal congestion. He is using tqoc-dhy-qadwkwl medication. I recommended fluticasone and loratadine. 05/18/2025 [...] con 02/24/2025 Next Appt Details Provider Name:Jose Acostane , 10/05/2025 02:30:00 PM, [address] [place] [address] [address]CO, [place], [address], Insurance Providers Payer Name Payer Address Payer Phone Subscriber Number Group Number Insured Name Patient Relationship to Insured Coverage Start Date Coverage End Date [employer] [address] [place], [place] [id number] Jem Glalardo Self - patient is the insured 4 MEDICARE NGS [address] [place] [address] [id number] Jem Gallardo Self - patient is the insured Medical (General) History Medical History History ICD Code migraine headaches allergies hypertension anal fissure staphylococcal infection 1999 chronic lymphocytic leukemia in [facility] lung cancer, non-small cell obesity former smoker dvt february 2015 right leg protein S deficiency Covid 22 August 2024 Surgical History Surgery Date(Month/Year) No history Cyst removed from his back 08/2022 cataract right eye 06/2018 FNA superior mediastinal mass Hospitalization History Reason Date(Month/Year) No history
[2025-07-29 08:07] LABS: Prothrombin Time Whole Bld POC 21.0 sec (11.1-13.5); ~PT, ~INR - Anti Coag Clinic 1.8 (0.9-1.1)
--- NOTE | 2025-07-29 08:08 | MHC.OFFVISCO ---
Intake Intake Visit Reasons: Anticoagulation Allergies Seasonal Allergies Allergy (Intermediate, Verified 07/29/25 08:02) Cough venlafaxine Adverse Reaction (Intermediate, Verified 07/29/25 08:02) Headache Medication List - Last Reconciled 07/29/25 by Razia López RN cyclobenzaprine 5 mg PO TID PRN losartan 25 mg PO DAILY meclizine 25 - 50 mg PO Q8H simvastatin 40 mg PO DAILY sumatriptan succinate 100 mg PO PRN trazodone 50 mg PO DAILY vitamin B complex PO [VITAMIN D 3 PO] warfarin 5 mg See Protocol PO DAILY Nursing Note INR: 1.8 out of therapeutic range of 2-3 Medications and supplements reviewed Patient status: Pt had covid and was to start on paxlovid but never did. He states his symptoms only lasted a day and a half. He received the covid vaccine 3 days before he had symptoms. He is feeling much better today. Medications or supplements: no changes Diet: no changes Denies any signs and symptoms of bleeding or clotting or unusual bruising Bleeding, bruising, clotting discussed Nutritional guidance given: avoid greens today Dose: increase today's dose to 7.5mg then usual dose of 7.5mg X 4 days and 5mg X 3 days (M/W/F) F/U INR Date: 4 weeks?? Patient verbalizing understanding of instructions with read back given. Anti-Coag Initial Assessment Social Hx Patient Tobacco Use Status: Former Tobacco user Tobacco use type: Cigar alcohol intake: never Coding Level of Care Code Est Patient Level 1 Diagnoses Current use of anticoagulant therapy Z79.01 Results AMB INR Fingerstick AMB INR Fingerstick 1.8 Last Edit by Razia López RN on 07/29/25 08:07 interface delay Assessment & Plan Assessment & Plan (1) Current use of anticoagulant therapy: Code(s): Z79.01 - shelter (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
== END 2025-07-29 08:18 | disposition home or self-care (01) ==
LOC: HO.ACS 08:01
PROVIDERS: PCP Internal Medicine Medical Oncology; Visit Provider Internal Medicine Medical Oncology
DX: Z79.01 Long term (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 (principal)

== ENCOUNTER → 2025-07-29 08:01 | Outpatient (BNVA) | payer MEDICARE, SELFPAY | PROVIDERS: PCP Internal Medicine Medical Oncology; Visit Provider Internal Medicine Medical Oncology | DX: Z86.718 Personal history of other venous thrombosis and embolism (principal); Z51.81 Encounter for therapeutic drug level monitoring; Z79.01 Long term (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 | CPT/HCPCS: 85610; 99211 ==